=== PATIENT | female | born 1985 ===

== ENCOUNTER 2016-08-29 13:16 | Emergency (ER) | payer MEDICAID ==
[2016-08-29 13:16] VITALS: BMI 23.0
[2016-08-29 13:54] VITALS: BP 118/64; PULSE 94; RESP 18; TEMP 97.9; O2SAT 94
[2016-08-29] MEDS ORDERED: HYDROmorphone 1 mg Tab PO STA ×3 (14:35→17:45)
--- NOTE | 2016-08-29 14:40 | C.PDOC ---
History Of Present Illness 31 yr old female with PMHx of Sickle Cell, presents to the ER with complaints of whole body pain, typical with her sickle cell pain and headache for the past 3 days. Patient reports she fell and hit her head in June and since then she has been getting reoccurring headache, states it has happened "10 times already ". Patient reports the headache usually gets better with Advil and rest. Patient denies fever, chills, vision changes, chest pain, SOB, nausea, vomiting , weakness or numbness. Time Seen by Provider: 08/29/16 14:21 Chief Complaint (Nursing): Back Pain History Per: Patient History/Exam Limitations: no limitations Onset/Duration Of Symptoms: Days (3) Past Medical History Reviewed: Historical Data, Nursing Documentation, Vital Signs Vital Signs: Last Vital Signs Temp 97.9 F 08/29/16 13:52 Pulse 94 H 08/29/16 13:52 Resp 18 08/29/16 13:52 BP 118/64 08/29/16 13:52 Pulse Ox 94 L 08/29/16 18:20 - Medical History PMH: Anemia (sickle cell anemia), Bronchitis, Gall Bladder Disease, Pneumonia, Sickle Cell Disease Surgical History: Cholecystectomy (2007) - [facility] Procedures INFLUENZA VACCINATION (03/16/12) INJECT/INFUSE ELECTROLYT (09/07/13) INJECT/INFUSE NEC (01/25/14) INSERTION OF INFUSION DEV INTO SUP VENA CAVA, PERC APPROACH (04/15/16) NEBULIZER THERAPY (12/02/13) PACKED CELL TRANSFUSION (02/12/15) REMOVAL OF VAD FROM TRUNK SUBCU/FASCIA, OPEN APPROACH (04/15/16) TRANSFUSE NONAUT RED BLOOD CELLS IN PERIPH VEIN, PERC (04/15/16) VACCINATION NEC (08/22/13) Family History: States: No Known Family Hx - Social History Hx Tobacco Use: No Hx Alcohol Use: No Hx Substance Use: Yes (marijuana occasionally) - Immunization History Hx Tetanus Toxoid Vaccination: Yes Hx Influenza Vaccination: Yes (2015) Hx Pneumococcal Vaccination: Yes (2014) Review Of Systems Except As Marked, All Systems Reviewed And Found Negative. Constitutional: Positive for: Other ((+) Whole body pain ). Negative for: Fever , Chills Eyes: Negative for: Vision Change Cardiovascular: Negative for: Chest Pain Respiratory: Negative for: Shortness of Breath Gastrointestinal: Negative for: Nausea, Vomiting Neurological: Positive for: Headache. Negative for: Weakness, Numbness Physical Exam - Physical Exam Appears: Non-toxic, No Acute Distress Skin: Warm, Dry, No Rash Head: Atraumatic, Normacephalic Neck: Normal, Normal ROM, Supple Chest: Symmetrical, No Tenderness Cardiovascular: Rhythm Irregular, No Murmur Respiratory: Normal Breath Sounds, No Rales, No Rhonchi, No Stridor, No Wheezing Extremity: Normal ROM, No Swelling Neurological/Psych: Oriented x3, Normal Speech, Normal Motor ED Course And Treatment O2 Sat by Pulse Oximetry: 94 Progress Note: Pateint received all medications. Patient left without discharge papers. Medical Decision Making Medical Decision Makin the pt says she feels better and would like her last round of pain medication and then she would like to be discharged. Disposition - Disposition Disposition: HOME/ ROUTINE Disposition Time: 18:09 Condition: STABLE Additional Instructions: Please follow up with your doctor. Forms: General Discharge Instructions - Clinical Impression Clinical Impression: Sickle-cell disease with pain - Scribe Statement The provider has reviewed the documentation as recorded by the Rosa Willoughby Provider Attestation: All medical record entries made by the Rosa were at my direction and personally dictated by me. I have reviewed the chart and agree that the record accurately reflects my personal performance of the history, physical exam, medical decision making, and the department course for this patient. I have also personally directed, reviewed, and agree with the discharge instructions and disposition.
== END 2016-08-29 18:25 | disposition home or self-care (01) ==
LOC: C.ER 13:16
DX: R51 Headache (principal); D57.1 Sickle-cell disease without crisis

== ENCOUNTER 2016-09-01 08:34 | Emergency (ER) | payer MEDICAID ==
[2016-09-01 08:35] VITALS: BMI 23.0
[2016-09-01 08:40] VITALS: BP 118/82; PULSE 83; RESP 18; TEMP 97.4; O2SAT 98
--- NOTE | 2016-09-01 08:49 | C.PDOC ---
History Of Present Illness 31 yr old female presents to the ER with complaints of exacerbated chronic back pain. Patient reports the pain is unchanged from prior, was seen on 08/29 for pain exacerbation. Patient has multiple ER visits for various pain complaints. Patient denies fever, nausea, vomiting, abdominal pain, diarrhea, dysuira or hematuria. CO EXAC CHRONIC BACK PAIN. SX UNCH FROM PRIOR DENIES TRAUMA. SEEN 08/29 FOR PAIN EXAC. MULT RECENT ER VISITS FOR VARIOUS PAIN COMPLAINTS. EXAM NEG MDM EXAC CHRONIC PAIN, PROBABLE DRUG SEEKING BEHAVIOR. RECENT RX FILL OF OXY, RECENT NEG LABS. ADVISED CONT CURRENT PAIN MEDS, FU PAIN MGMT Time Seen by Provider: 09/01/16 08:45 Chief Complaint (Nursing): Back Pain History Per: Patient History/Exam Limitations: no limitations Onset/Duration Of Symptoms: Persistent Current Symptoms Are (Timing): Still Present Past Medical History Reviewed: Historical Data, Nursing Documentation, Vital Signs Vital Signs: Last Vital Signs Temp 97.4 F L 09/01/16 08:40 Pulse 83 09/01/16 08:40 Resp 18 09/01/16 08:40 BP 118/82 09/01/16 08:40 Pulse Ox 98 09/01/16 08:53 - Medical History PMH: Anemia (sickle cell anemia), Bronchitis, Gall Bladder Disease, Pneumonia, Sickle Cell Disease Surgical History: Cholecystectomy (2007) - [facility] Procedures INFLUENZA VACCINATION (03/16/12) INJECT/INFUSE ELECTROLYT (09/07/13) INJECT/INFUSE NEC (01/25/14) INSERTION OF INFUSION DEV INTO SUP VENA CAVA, PERC APPROACH (04/15/16) NEBULIZER THERAPY (12/02/13) PACKED CELL TRANSFUSION (02/12/15) REMOVAL OF VAD FROM TRUNK SUBCU/FASCIA, OPEN APPROACH (04/15/16) TRANSFUSE NONAUT RED BLOOD CELLS IN PERIPH VEIN, PERC (04/15/16) VACCINATION NEC (08/22/13) Family History: States: No Known Family Hx - Social History Hx Tobacco Use: No Hx Alcohol Use: No Hx Substance Use: Yes (marijuana occasionally) - Immunization History Hx Tetanus Toxoid Vaccination: Yes Hx Influenza Vaccination: Yes (2015) Hx Pneumococcal Vaccination: Yes (2014) Review Of Systems Except As Marked, All Systems Reviewed And Found Negative. Constitutional: Negative for: Fever Gastrointestinal: Negative for: Nausea, Vomiting, Abdominal Pain, Diarrhea Genitourinary: Negative for: Dysuria, Hematuria Musculoskeletal: Positive for: Back Pain (Chronic back pain ) Physical Exam - Physical Exam Appears: Non-toxic, No Acute Distress Skin: Warm, Dry, No Rash Head: Atraumatic, Normacephalic Eye(s): bilateral: Normal Inspection, PERRL, EOMI Oral Mucosa: Moist Chest: Symmetrical, No Tenderness Cardiovascular: Rhythm Regular, No Murmur Respiratory: Normal Breath Sounds, No Rales, No Rhonchi, No Wheezing Gastrointestinal/Abdominal: Normal Exam, Soft, No Tenderness, No Guarding, No Rebound Back: Normal Inspection, No CVA Tenderness Extremity: Normal ROM, No Swelling Neurological/Psych: Oriented x3, Normal Speech, Normal Motor ED Course And Treatment O2 Sat by Pulse Oximetry: 98 Progress - Re-Evaluation Re-evaluation Note: 09/01/16 08:48 [place] RX REVIEWED: 08/27/2016 08/27/2016 OXYCODONE HCL ER 40 MG TABLET 10.0 08/12/2016 HYDROMORPHONE 4 MG TABLET 20.0 06/27/2016 HYDROMORPHONE 4 MG TABLET 30.0 - Data Reviewed Data Reviewed: Old records Medical Decision Making Medical Decision Making: NOTE: EXAC CHRONIC PAIN, PROBABLE DRUG SEEKING BEHAVIOR. RECENT RX FILL OF OXY, RECENT NEG LABS. ADVISED CONT CURRENT PAIN MEDS, FU PAIN MGMT Disposition Counseled Patient/Family Regarding: Diagnosis, Need For Followup - Disposition Referrals: YOUR,PMD [Other] Disposition: HOME/ ROUTINE Disposition Time: 08:50 Condition: GOOD Instructions: Chronic Pain (ED) - Clinical Impression Clinical Impression: Chronic pain - Scribe Statement The provider has reviewed the documentation as recorded by the Rosa Willoughby Provider Attestation: All medical record entries made by the Rosa were at my direction and personally dictated by me. I have reviewed the chart and agree that the record accurately reflects my personal performance of the history, physical exam, medical decision making, and the department course for this patient. I have also personally directed, reviewed, and agree with the discharge instructions and disposition.
== END 2016-09-01 08:55 | disposition home or self-care (01) ==
LOC: C.ER 08:34
DX: G89.29 Other chronic pain (principal); M54.9 Dorsalgia, unspecified

== ENCOUNTER 2016-09-05 09:25 | Emergency (ER) | payer MEDICAID ==
[2016-09-05 09:26] VITALS: BMI 23.0
--- NOTE | 2016-09-05 10:52 | C.PDOC ---
History Of Present Illness 31-year-old female, PMHx includes Sickle Cell Disease, presents to the emergency department with multiple complaints. Patient states she has swelling and pain to her left eyelid for the past few days. Patient [place] [facility] [place], where she was given "drops" that have not helped. Secondary complaint is body aches that are consistent with her sickle cell symptoms; Patient has been seen in ED for this complaint multiple times in the past. Denies any other associated symptoms at this time. No other complaints. PMD Dr Raymond Time Seen by Provider: 09/05/16 09:40 Chief Complaint (Nursing): Eye Problem History Per: Patient History/Exam Limitations: no limitations Past Medical History Reviewed: Historical Data, Nursing Documentation, Vital Signs Vital Signs: Last Vital Signs Temp 98.2 F 09/05/16 12:03 Pulse 86 09/05/16 12:03 Resp 18 09/05/16 12:03 BP 118/72 09/05/16 12:03 Pulse Ox 97 09/05/16 12:03 - Medical History PMH: Anemia (sickle cell anemia), Bronchitis, Gall Bladder Disease, Pneumonia, Sickle Cell Disease Surgical History: Cholecystectomy (2007) - [facility] Procedures INFLUENZA VACCINATION (03/16/12) INJECT/INFUSE ELECTROLYT (09/07/13) INJECT/INFUSE NEC (01/25/14) INSERTION OF INFUSION DEV INTO SUP VENA CAVA, PERC APPROACH (04/15/16) NEBULIZER THERAPY (12/02/13) PACKED CELL TRANSFUSION (02/12/15) REMOVAL OF VAD FROM TRUNK SUBCU/FASCIA, OPEN APPROACH (04/15/16) TRANSFUSE NONAUT RED BLOOD CELLS IN PERIPH VEIN, PERC (04/15/16) VACCINATION NEC (08/22/13) Family History: States: Unknown Family Hx - Social History Hx Tobacco Use: No Hx Alcohol Use: No Hx Substance Use: Yes (marijuana occasionally) - Immunization History Hx Tetanus Toxoid Vaccination: Yes Hx Influenza Vaccination: Yes (2015) Hx Pneumococcal Vaccination: Yes (2014) Review Of Systems Except As Marked, All Systems Reviewed And Found Negative. Constitutional: Positive for: Malaise. Negative for: Fever, Chills Eyes: Positive for: Pain Cardiovascular: Negative for: Chest Pain Respiratory: Negative for: Cough, Shortness of Breath Gastrointestinal: Negative for: Nausea, Vomiting Musculoskeletal: Negative for: Back Pain Skin: Negative for: Rash Neurological: Negative for: Weakness, Numbness, Headache, Dizziness Psych: Negative for: Anxiety, Depression, Suicidal ideation Physical Exam - Physical Exam Appears: Non-toxic, No Acute Distress Skin: Warm, Dry, No Rash Head: Atraumatic, Normacephalic Eye(s): bilateral: Normal Inspection, PERRL, EOMI, left: Other (swelling/sty to left lateral upper lid. No erythema to eyelid. ) Nose: Normal Oral Mucosa: Moist Lips: Normal Appearing Neck: Normal ROM Cardiovascular: Rhythm Regular Respiratory: Normal Breath Sounds, No Accessory Muscle Use Extremity: Normal ROM Neurological/Psych: Oriented x3, Normal Speech ED Course And Treatment O2 Sat by Pulse Oximetry: 100 Medical Decision Making Medical Decision Makin the pt tells me she has taken ibuprofen before and is not allergic to this. 1249 the pt says she feels better and wishes to be discharged Disposition - Disposition Disposition: HOME/ ROUTINE Disposition Time: 12:49 Condition: IMPROVED - Clinical Impression Clinical Impression: Sickle cell pain crisis, Hordeolum externum - Scribe Statement The provider has reviewed the documentation as recorded by the Rosa Shearer All medical record entries made by the Zacheryibvalarie were at my direction and personally dictated by me. I have reviewed the chart and agree that the record accurately reflects my personal performance of the history, physical exam, medical decision making, and the department course for this patient. I have also personally directed, reviewed, and agree with the discharge instructions and disposition.
[2016-09-05 12:04] VITALS: PULSE 86; RESP 18; TEMP 98.2
[2016-09-05 12:50] VITALS: O2SAT 100
[2016-09-05 13:10] VITALS: BP 116/70
== END 2016-09-05 12:55 | disposition home or self-care (01) ==
LOC: C.ER 09:25
DX: D57.00 Hb-SS disease with crisis, unspecified (principal); H00.014 Hordeolum externum left upper eyelid

== ENCOUNTER 2016-09-07 11:59 | Emergency (ER) | payer MEDICAID ==
[2016-09-07 12:04] VITALS: O2SAT 100; BMI 21.5
--- NOTE | 2016-09-07 12:39 | C.PDOC ---
History Of Present Illness 31-year-old female, PMHx includes Sickle Cell Disease, presents to the emergency department with complaints of body aches. Patient states she has been experiencing one week duration of abdominal pain and body aches that are consistent with her sickle cell symptoms; Patient has been seen in ED for this complaint multiple times in the past. Notes an episode of non-bloody/non- bilious vomiting last night. PMD Dr Raymond Time Seen by Provider: 09/07/16 12:35 Chief Complaint (Nursing): Abdominal Pain History Per: Patient History/Exam Limitations: no limitations Onset/Duration Of Symptoms: Days Current Symptoms Are (Timing): Still Present Severity: Moderate Past Medical History Reviewed: Historical Data, Nursing Documentation, Vital Signs Vital Signs: Last Vital Signs Temp 98.2 F 09/07/16 12:03 Pulse 86 09/07/16 12:03 Resp 16 09/07/16 12:03 BP 123/80 09/07/16 12:03 Pulse Ox 100 09/07/16 12:48 - Medical History PMH: Anemia (sickle cell anemia), Bronchitis, Gall Bladder Disease, Pneumonia, Sickle Cell Disease Surgical History: Cholecystectomy (2007) - [facility] Procedures INFLUENZA VACCINATION (03/16/12) INJECT/INFUSE ELECTROLYT (09/07/13) INJECT/INFUSE NEC (01/25/14) INSERTION OF INFUSION DEV INTO SUP VENA CAVA, PERC APPROACH (04/15/16) NEBULIZER THERAPY (12/02/13) PACKED CELL TRANSFUSION (02/12/15) REMOVAL OF VAD FROM TRUNK SUBCU/FASCIA, OPEN APPROACH (04/15/16) TRANSFUSE NONAUT RED BLOOD CELLS IN PERIPH VEIN, PERC (04/15/16) VACCINATION NEC (08/22/13) Family History: States: Unknown Family Hx - Social History Hx Tobacco Use: No Hx Alcohol Use: No Hx Substance Use: Yes (marijuana occasionally) - Immunization History Hx Tetanus Toxoid Vaccination: Yes Hx Influenza Vaccination: Yes (2015) Hx Pneumococcal Vaccination: Yes (2014) Review Of Systems Except As Marked, All Systems Reviewed And Found Negative. Constitutional: Positive for: Malaise. Negative for: Fever, Chills Respiratory: Negative for: Cough, Shortness of Breath Gastrointestinal: Positive for: Vomiting, Abdominal Pain Skin: Negative for: Rash Neurological: Negative for: Weakness, Numbness, Headache, Dizziness Physical Exam - Physical Exam Appears: Non-toxic, No Acute Distress Skin: Warm, Dry, No Rash Head: Atraumatic, Normacephalic Eye(s): bilateral: Normal Inspection, PERRL Nose: Normal Oral Mucosa: Moist Lips: Normal Appearing Neck: Normal ROM Cardiovascular: Rhythm Regular Respiratory: Normal Breath Sounds, No Accessory Muscle Use Extremity: Normal ROM Neurological/Psych: Oriented x3, Normal Speech ED Course And Treatment O2 Sat by Pulse Oximetry: 100 Medical Decision Making Medical Decision Making: Prior Visits Notes and records from previous visits were reviewed. Patient seen in ED two days ago for same complaint. Pt was given PO Dilaudid 16mg, 8mg and Motrin 500mg PO Benadryl 50mg. Pt has been seen in ED multiple times for same complaint. 151: pt reassesed. taking po on phone in nad. Disposition - Disposition Disposition: HOME/ ROUTINE Disposition Time: 13:51 Condition: STABLE Additional Instructions: please follow up with your doctor. return to er with worsening symptoms or concerns Instructions: Sickle Cell Crisis (ED) - Clinical Impression Clinical Impression: Sickle cell crisis - Scribe Statement The provider has reviewed the documentation as recorded by the Scribvalarie Shearer All medical record entries made by the Scribe were at my direction and personally dictated by me. I have reviewed the chart and agree that the record accurately reflects my personal performance of the history, physical exam, medical decision making, and the department course for this patient. I have also personally directed, reviewed, and agree with the discharge instructions and disposition.
[2016-09-07] MEDS ORDERED: HYDROmorphone 1 mg Tab PO STA (13:02)
[2016-09-07 14:13] VITALS: BP 114/77; PULSE 68; RESP 18; TEMP 97.8
== END 2016-09-07 14:47 | disposition home or self-care (01) ==
LOC: C.ER 11:59
DX: D57.00 Hb-SS disease with crisis, unspecified (principal)

== ENCOUNTER 2016-09-13 08:29 | Emergency (ER) | payer MEDICAID ==
[2016-09-13 08:29] VITALS: BMI 21.5
--- NOTE | 2016-09-13 11:05 | C.PDOC ---
History Of Present Illness 31 yr old female with PMHx of Sickle Cell Disease, presents to the ER for generalized body aches. Patient states the pain is consistent with normal Sickle Cell Disease pain. Patient has been seen in ED for similar complaint multiple times in the past. Patient denies fever, chills, chest pain, SOB, nausea, vomiting, headache, weakness or numbness. Time Seen by Provider: 09/13/16 08:34 Chief Complaint (Nursing): Abdominal Pain History Per: Patient History/Exam Limitations: no limitations Onset/Duration Of Symptoms: Days Current Symptoms Are (Timing): Still Present Past Medical History Reviewed: Historical Data, Nursing Documentation, Vital Signs Vital Signs: Last Vital Signs Temp 98.5 F 09/13/16 08:36 Pulse 89 09/13/16 08:36 Resp 20 09/13/16 08:36 BP 120/78 09/13/16 08:36 Pulse Ox 95 09/13/16 11:11 - Medical History PMH: Anemia, Bronchitis, Gall Bladder Disease, Pneumonia, Sickle Cell Disease Surgical History: Cholecystectomy - [facility] Procedures INFLUENZA VACCINATION (03/16/12) INJECT/INFUSE ELECTROLYT (09/07/13) INJECT/INFUSE NEC (01/25/14) INSERTION OF INFUSION DEV INTO SUP VENA CAVA, PERC APPROACH (04/15/16) NEBULIZER THERAPY (12/02/13) PACKED CELL TRANSFUSION (02/12/15) REMOVAL OF VAD FROM TRUNK SUBCU/FASCIA, OPEN APPROACH (04/15/16) TRANSFUSE NONAUT RED BLOOD CELLS IN PERIPH VEIN, PERC (04/15/16) VACCINATION NEC (08/22/13) Family History: States: No Known Family Hx - Social History Hx Tobacco Use: No Hx Alcohol Use: No Hx Substance Use: Yes (marijuana occasionally) - Immunization History Hx Tetanus Toxoid Vaccination: Yes Hx Influenza Vaccination: Yes (2016) Hx Pneumococcal Vaccination: Yes (2015) Review Of Systems Except As Marked, All Systems Reviewed And Found Negative. Constitutional: Positive for: Other ((+) Generalized body aches.). Negative for : Fever, Chills Cardiovascular: Negative for: Chest Pain Respiratory: Negative for: Shortness of Breath Gastrointestinal: Negative for: Nausea, Vomiting Neurological: Negative for: Weakness, Numbness, Headache Physical Exam - Physical Exam Appears: Well, Non-toxic, No Acute Distress Skin: Normal Color, Warm, Dry, No Rash Head: Atraumatic, Normacephalic Eye(s): bilateral: Normal Inspection, PERRL, EOMI Throat: Normal, No Erythema, No Exudate Chest: Symmetrical, No Tenderness Cardiovascular: Rhythm Regular, No Murmur Respiratory: Normal Breath Sounds Gastrointestinal/Abdominal: Normal Exam, Soft, No Tenderness, No Guarding, No Rebound Extremity: Normal ROM, No Swelling Neurological/Psych: Oriented x3, Normal Speech Gait: Steady ED Course And Treatment O2 Sat by Pulse Oximetry: 95 Medical Decision Making Medical Decision Making: PLAN: * Benadryl PO * Dilaudid PO * Motrin PO * Reglan PO Disposition Counseled Patient/Family Regarding: Diagnosis, Need For Followup - Disposition Disposition: HOME/ ROUTINE Disposition Time: 11:17 Condition: FAIR Forms: General Discharge Instructions - Clinical Impression Clinical Impression: Sickle cell disease - Scribe Statement The provider has reviewed the documentation as recorded by the Rosa Willoughby Provider Attestation: All medical record entries made by the Zacheryibvalarie were at my direction and personally dictated by me. I have reviewed the chart and agree that the record accurately reflects my personal performance of the history, physical exam, medical decision making, and the department course for this patient. I have also personally directed, reviewed, and agree with the discharge instructions and disposition.
[2016-09-13 11:24] VITALS: BP 120/78; PULSE 89; RESP 20; TEMP 98.5; O2SAT 95
== END 2016-09-13 11:32 | disposition home or self-care (01) ==
LOC: C.ER 08:29
DX: D57.1 Sickle-cell disease without crisis (principal)

== ENCOUNTER 2016-09-19 08:09 | Emergency (ER) | payer MEDICAID, OTHER ==
[2016-09-19 08:09] VITALS: BMI 21.5
[2016-09-19 09:48] VITALS: BP 131/82; PULSE 82; RESP 18; TEMP 98; O2SAT 97
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
--- NOTE | 2016-09-19 10:58 | RAD ---
PROCEDURE: Pelvis right hip dated 09/19/2016. HISTORY: r/o fx COMPARISON: Comparison made with CT scan of the abdomen and pelvis and plain film radiographs of the abdomen and pelvis dated 03/02/2016 and 07/30/2016 respectively. TECHNIQUE: AP view of the pelvis and right hip and frogleg lateral view FINDINGS: Metallic clip seen overlying the left mid true pelvis likely related to prior abdominal surgery. Clinical correlation with surgical history recommended. No evidence of acute displaced fracture nor dislocation. Both femoral heads appear appropriately located within the respective acetabula. Joint spaces are relatively preserved. Note again made of a small elliptical shaped sclerotic density overlying the right iliac bone with a smaller rounded sclerotic lesion in the posterior aspect left acetabulum consistent with small bone islands or osteomas. IMPRESSION: Right hip no acute fracture seen. Followup studies such as CT scan could be performed if further evaluation is necessary see above discussion for additional findings and details.
--- NOTE | 2016-09-19 11:03 | RAD ---
PROCEDURE: Chest and left rib series dated 09/19/2016 HISTORY: r/o fx COMPARISON: Comparison made with chest radiographs 08/24/2016 TECHNIQUE: Frontal view of the chest and 2 views of the left ribs performed. FINDINGS: Heart size is borderline enlarged. Poor inspiration with low lung volumes, mild crowded bronchovascular markings and mild bibasilar atelectasis. No evidence of focal consolidation effusion or pneumothorax. The visualized left ribs appear intact so far as can be seen. Re- demonstrated are multiple metallic clips in the left upper quadrant and right parasagittal mid abdomen unchanged IMPRESSION: No acute fracture seen. No acute cardiopulmonary disease. Poor inspiration with low lung volumes, crowded bronchovascular markings and mild bibasilar atelectasis.
== END 2016-09-19 10:03 | disposition home or self-care (01) ==
LOC: C.ER 08:09
DX: S20.222A Contusion of left back wall of thorax, initial encounter (principal); S70.01XA Contusion of right hip, initial encounter; V43.12XA Car passenger injured in collision with other type car in nontraffic accident, initial encounter; Y92.410 Unspecified street and highway as the place of occurrence of the external cause

== ENCOUNTER 2016-09-25 08:27 | Observation (INO) | payer MEDICAID, OTHER ==
[2016-09-25 08:37] VITALS: BMI 23.6
--- NOTE | 2016-09-25 09:11 | C.PDOC ---
History Of Present Illness 31 y/o female pmhx sickle cell disease presents to the ED with complains of diffuse body pain x1 day. Pain is typical of usual sickle cell symptoms. Pt denies fever, cough, SOB, vomiting, diarrhea or any other complaints. Time Seen by Provider: 09/25/16 08:41 Chief Complaint (Nursing): Pain, Chronic History Per: Patient History/Exam Limitations: no limitations Onset/Duration Of Symptoms: Hrs Current Symptoms Are (Timing): Still Present Severity: Mild Recent travel outside of the [place]: No Past Medical History Reviewed: Historical Data, Nursing Documentation, Vital Signs Vital Signs: Last Vital Signs Temp 98.0 F 09/25/16 10:30 Pulse 94 H 09/25/16 12:34 Resp 14 09/25/16 12:34 BP 126/58 L 09/25/16 12:34 Pulse Ox 97 09/25/16 12:41 - Medical History PMH: Anemia, Bronchitis, Gall Bladder Disease, Pneumonia, Sickle Cell Disease Surgical History: Cholecystectomy - [facility] Procedures INFLUENZA VACCINATION (03/16/12) INJECT/INFUSE ELECTROLYT (09/07/13) INJECT/INFUSE NEC (01/25/14) INSERTION OF INFUSION DEV INTO SUP VENA CAVA, PERC APPROACH (04/15/16) NEBULIZER THERAPY (12/02/13) PACKED CELL TRANSFUSION (02/12/15) REMOVAL OF VAD FROM TRUNK SUBCU/FASCIA, OPEN APPROACH (04/15/16) TRANSFUSE NONAUT RED BLOOD CELLS IN PERIPH VEIN, PERC (04/15/16) VACCINATION NEC (08/22/13) Family History: States: Unknown Family Hx - Social History Hx Tobacco Use: No Hx Alcohol Use: No Hx Substance Use: Yes (marijuana occasionally) - Immunization History Hx Tetanus Toxoid Vaccination: Yes Hx Influenza Vaccination: Yes (2015) Hx Pneumococcal Vaccination: Yes (2014) Review Of Systems Except As Marked, All Systems Reviewed And Found Negative. Constitutional: Negative for: Fever Cardiovascular: Negative for: Chest Pain Respiratory: Negative for: Cough, Shortness of Breath Gastrointestinal: Negative for: Vomiting, Diarrhea Musculoskeletal: Positive for: Other (diffuse body pain) Physical Exam - Physical Exam Appears: Non-toxic, No Acute Distress Skin: Warm, Dry, No Rash Head: Atraumatic, Normacephalic Oral Mucosa: Dry Throat: Normal Neck: Normal ROM, Supple Chest: Symmetrical Cardiovascular: Rhythm Regular, No Murmur Respiratory: Normal Breath Sounds, No Rales, No Rhonchi, No Wheezing Gastrointestinal/Abdominal: Normal Exam, Soft, No Tenderness Extremity: Normal ROM Extremity: Bilateral: Atraumatic Neurological/Psych: Oriented x3, Normal Speech ED Course And Treatment - Laboratory Results Result Diagrams: 09/25/16 09:48 09/25/16 09:48 O2 Sat by Pulse Oximetry: 97 (on room air) Pulse Ox Interpretation: Normal Progress Note: Plan: labs, CXR, benadryl, dilaudid, zofran, UA ED OBSERVATION Date of observation admission: 09/25/16 Time of observation admission: 09:37 - Observation admission statement Patient is being placed in observation because:: To monitor patient's response to treatment and give IV hydration. - Goals of Observation Goals of observation are:: To give IVF, control patient's pain. - Progress Note Progress Note: 09/25/16 11:32 On re-evaluation, patient continues to complain of diffuse bodypain. On exam, patient is laying in bed in no acute distress. On exam, lungs still clear to auscultation, cardiac RRR, abdomen still soft with no tenderness. Labs reviewed , WBC 16, Hgb 8, CMP wnl, CXR NAD, UA (-). Given 2nd dose of dilaudid 2 mg IV, and benadryl 25 mg IV. IVF still infusing. VSS. 09/25/16 12:33 On second re-evaluation, patient's symptoms are improving. Denies any chest pain , SOB or abdominal pain. Exam is unchanged, patient is sitting up in bed comfortably in no acute distress. Retic count 11. Patient given 3rd dose of dilaudid 12 mg IV, 2nd bolus IVF ordered. 09/25/16 12:50 On re-evaluation, patient is feeling much improved with no pain at this time. Patient states that she feels comfortable going home. Advised to follow up with PMD in 1-2 days without fail. Return to the ER at any time for any new or worsening symptoms. Disposition - Disposition Referrals: Олег Alegria MD [Staff Provider] - Disposition: HOME/ ROUTINE Disposition Time: 12:50 Condition: IMPROVED Additional Instructions: Follow up with PMD or referral physician in 1-2 days without fail. Return to the ER at any time for any new or worsening symptoms. Instructions: Dehydration (ED), Sickle Cell Crisis (ED) Print Language: SYRIAN - Clinical Impression Clinical Impression: Sickle cell pain crisis, Dehydration - PA / PRECISION LATHE OPERATOR / Resident Statement MD/DO has reviewed & agrees with the documentation as recorded. - Scribe Statement The provider has reviewed the documentation as recorded by the Scribvalarie Kidd All medical record entries made by the Rosa were at my direction and personally dictated by me. I have reviewed the chart and agree that the record accurately reflects my personal performance of the history, physical exam, medical decision making, and the department course for this patient. I have also personally directed, reviewed, and agree with the discharge instructions and disposition.
[2016-09-25] MEDS ORDERED: Sodium Chloride 0.9% 1,000 ML IV ONE ×2 (09:35→12:15)
[2016-09-25] MEDS ORDERED: HYDROmorphone 1 mg/ml ISec IVP STA ×3 (09:37→12:15)
[2016-09-25] MEDS ORDERED: DiphenhydrAMINE 50 mg/ml Inj IVP STA ×2 (09:37→11:36)
[2016-09-25] MEDS ORDERED: DiphenhydrAMINE 50 mg/ml Inj ONE ×2 (09:49→11:38)
[2016-09-25] MEDS ORDERED: Sodium Chloride 0.9% 1,000 ML ONE ×2 (09:49→12:28)
[2016-09-25 09:55] LABS: BASO # 0.1 K/uL (0.0-0.2); BASO % 0.7 % (0.0-2.0); EOS # 0.5 K/uL (0.0-0.7); EOS % 2.9 % (0.0-4.0); HEMATOCRIT 26.4 % (34.0-47.0); LYMPH # 5.6 K/uL (1.0-4.3); LYMPH % 34.8 % (20.0-40.0); MEAN CORPUSCULAR HEMOGLOBIN 32.2 pg (27.0-31.0); MEAN CORPUSCULAR HGB CONC 32.2 g/dL (33.0-37.0); MONO # 1.5 K/uL (0.0-0.8); MONO % 9.1 % (0.0-10.0); NRBC % 1.7 % (0.0-2.0); RED CELL DISTRIBUTION WIDTH 23.1 % (11.5-14.5)
[2016-09-25 09:57] LABS: MEAN CELL VOLUME 99.8 fL (81.0-99.0)
[2016-09-25 10:00] LABS: RBC URINE < 1 /hpf (0-3); URINE BACTERIA RARE (<OCC); URINE BILIRUBIN NEGATIVE (NEGATIVE); URINE BLOOD NEGATIVE (NEGATIVE); URINE COLOR Yellow (YELLOW); URINE GLUCOSE (UA) NORMAL (Normal); URINE KETONE NEGATIVE (NEGATIVE); URINE LEUKOCYTE ESTERASE NEG Leu/uL (Negative); URINE PROTEIN NEGATIVE (NEGATIVE); WBC URINE 1 /hpf (0-5)
[2016-09-25 10:07] LABS: CHLORIDE 102 mmol/L (98-107); POTASSIUM 4.2 mmol/L (3.6-5.2); SODIUM 140 mmol/L (132-148)
[2016-09-25 10:09] LABS: BILIRUBIN,TOTAL 2.4 mg/dL (0.2-1.3); CARBON DIOXIDE 26 mmol/L (22-30); GFR AFRICAN-AMERICAN > 60
[2016-09-25 10:10] LABS: ALB/GLOB RATIO 1.3 (1.0-2.1); ALKALINE PHOSPHATASE 118 U/L (38-126); ALT/SGPT 107 U/L (9-52); AST/SGOT 85 U/L (14-36); BLOOD UREA NITROGEN 8 mg/dL (7-17); GLUCOSE,RANDOM 93 mg/dL (65-105); TOTAL PROTEIN 7.2 g/dL (6.3-8.3)
[2016-09-25 11:08] LABS: RETIC% 11.8 % (0.5-1.5)
--- NOTE | 2016-09-25 11:31 | RAD ---
PROCEDURE: CHEST RADIOGRAPH, 1 VIEW HISTORY: chest pain COMPARISON: 09/19/2016 FINDINGS: LUNGS: Clear. PLEURA: No pneumothorax or pleural fluid seen. CARDIOVASCULAR: Normal. OSSEOUS STRUCTURES: No significant abnormalities. VISUALIZED UPPER ABDOMEN: Normal. OTHER FINDINGS: None. IMPRESSION: No active disease.
[2016-09-25 12:35] VITALS: RESP 14
[2016-09-25 12:50] VITALS: BP 120/70; PULSE 87; TEMP 98.4; O2SAT 94
== END 2016-09-25 12:50 | disposition home or self-care (01) ==
LOC: C.ER 08:27 → C.9OBSV 09:37
PROVIDERS: ADMIT Emergency Medicine; ATTEND Emergency Medicine
DX: D57.00 Hb-SS disease with crisis, unspecified (principal); E86.0 Dehydration
CPT/HCPCS: 71010; 80053; 81001; 84703; 85025; 85044; 96360; 96374; G0378; J1170; J1200; J2405; J7040

== ENCOUNTER 2016-10-14 02:02 | Emergency (ER) | payer MEDICAID ==
[2016-10-14 02:03] VITALS: BMI 23.6
[2016-10-14] MEDS ORDERED: DiphenhydrAMINE 50 mg/ml Inj ONE (02:49)
[2016-10-14] MEDS ORDERED: DiphenhydrAMINE 50 mg/ml Inj IM STA (02:49)
--- NOTE | 2016-10-14 02:55 | C.PDOC ---
History Of Present Illness 31 y/o female with PMHx of sickle cell anemia presents to ED with complaint of body aches. Patient states symptoms "do not feel like sickle cell crisis". Patient notes she is in process of switching PMD's at the moment and has no pain medications at home. Denies fever, chills, abdominal pain, nausea, vomiting , or other associated symptoms. Patient with multiple prior ER visits with similar complaints. Time Seen by Provider: 10/14/16 02:32 Chief Complaint (Nursing): Pain, Chronic History Per: Patient History/Exam Limitations: no limitations Onset/Duration Of Symptoms: Days Current Symptoms Are (Timing): Still Present Recent travel outside of the [place]: No Past Medical History Reviewed: Historical Data, Nursing Documentation, Vital Signs Vital Signs: Last Vital Signs Temp 98 F 10/14/16 03:36 Pulse 83 10/14/16 03:36 Resp 20 10/14/16 03:36 BP 121/70 10/14/16 03:36 Pulse Ox 99 10/14/16 03:36 - Medical History PMH: Anemia, Bronchitis, Gall Bladder Disease, Pneumonia, Sickle Cell Disease Surgical History: Cholecystectomy - [facility] Procedures INFLUENZA VACCINATION (03/16/12) INJECT/INFUSE ELECTROLYT (09/07/13) INJECT/INFUSE NEC (01/25/14) INSERTION OF INFUSION DEV INTO SUP VENA CAVA, PERC APPROACH (04/15/16) NEBULIZER THERAPY (12/02/13) PACKED CELL TRANSFUSION (02/12/15) REMOVAL OF VAD FROM TRUNK SUBCU/FASCIA, OPEN APPROACH (04/15/16) TRANSFUSE NONAUT RED BLOOD CELLS IN PERIPH VEIN, PERC (04/15/16) VACCINATION NEC (08/22/13) Family History: States: Unknown Family Hx - Social History Hx Tobacco Use: No Hx Alcohol Use: No Hx Substance Use: Yes (marijuana occasionally) - Immunization History Hx Tetanus Toxoid Vaccination: Yes Hx Influenza Vaccination: Yes (2015) Hx Pneumococcal Vaccination: Yes (2014) Review Of Systems Except As Marked, All Systems Reviewed And Found Negative. Constitutional: Positive for: Malaise. Negative for: Fever, Chills Cardiovascular: Negative for: Chest Pain Respiratory: Negative for: Cough, Shortness of Breath Gastrointestinal: Negative for: Nausea, Vomiting, Abdominal Pain, Diarrhea Skin: Negative for: Rash Neurological: Negative for: Headache, Dizziness Physical Exam - Physical Exam Appears: Non-toxic, No Acute Distress Skin: Normal Color, Warm, Dry Head: Atraumatic, Normacephalic Eye(s): bilateral: Normal Inspection Oral Mucosa: Moist Chest: Symmetrical Cardiovascular: Rhythm Regular, No Murmur Respiratory: Normal Breath Sounds, No Rales, No Rhonchi, No Wheezing Gastrointestinal/Abdominal: Soft, No Tenderness Back: Normal Inspection Extremity: Normal ROM, Capillary Refill (< 2 sec. ) Neurological/Psych: Oriented x3, Normal Speech, Normal Cognition ED Course And Treatment O2 Sat by Pulse Oximetry: 98 (RA) Pulse Ox Interpretation: Normal Progress Note: Treated with Dilaudid 2mg IM and Benadryl IM. Patient declines bloodwork at this time, also requesting medication for heartburn in ED. Treated with Maalox and Pepcid PO. On reevaluation, patient feels better, observed watching videos on her phone and talking to ER staff. Advised follow up with PMD. Disposition Counseled Patient/Family Regarding: Diagnosis, Need For Followup - Disposition Referrals: Enzo Louis MD [Staff Provider] - Disposition: HOME/ ROUTINE Disposition Time: 02:53 Condition: STABLE Additional Instructions: Please follow up with PMD Return to ER if symptoms worsen Instructions: Chronic Pain (ED) - Clinical Impression Clinical Impression: Chronic pain, Sickle cell disease - PA / ELECTRONICS TECHNOLOGY DEPARTMENT CHAIR / Resident Statement MD/DO has reviewed & agrees with the documentation as recorded. - Scribe Statement The provider has reviewed the documentation as recorded by the Rosa Hamlin Provider Scribe Attestation: All medical record entries made by the Rosa were at my direction and personally dictated by me. I have reviewed the chart and agree that the record accurately reflects my personal performance of the history, physical exam, medical decision making, and the department course for this patient. I have also personally directed, reviewed, and agree with the discharge instructions and disposition.
[2016-10-14] MEDS ORDERED: Aluminum Hydroxide/Magnesium Hydroxide Susp (30 mL) PO STA (02:56)
[2016-10-14] MEDS ORDERED: Aluminum Hydroxide/Magnesium Hydroxide Susp (30 mL) ONE (03:00)
[2016-10-14 03:37] VITALS: BP 121/70; PULSE 83; RESP 20; TEMP 98
[2016-10-14 04:22] VITALS: O2SAT 98
== END 2016-10-14 03:37 | disposition home or self-care (01) ==
LOC: C.ER 02:02
DX: G89.29 Other chronic pain (principal); D57.1 Sickle-cell disease without crisis
CPT/HCPCS: 96372; 99285; J1170; J1200

== ENCOUNTER 2016-10-17 08:39 | Emergency (ER) | payer MEDICAID ==
[2016-10-17 08:42] VITALS: BMI 22.6
[2016-10-17 08:50] VITALS: BP 116/79; PULSE 90; RESP 18; TEMP 98.7
[2016-10-17 09:02] VITALS: O2SAT 99
--- NOTE | 2016-10-17 09:37 | C.PDOC ---
History Of Present Illness 31 y/o female presents to the ED with complains of chronic generalized body pains. Pt history of sickle cell disease. Denies fever, nausea, vomiting, diarrhea, chest pain, abdominal pain, cough, SOB, headache, neck pain or any other complaints. Pt with frequent visits to ED for same. Time Seen by Provider: 10/17/16 09:04 Chief Complaint (Nursing): Pain, Chronic History Per: Patient History/Exam Limitations: no limitations Onset/Duration Of Symptoms: Days Current Symptoms Are (Timing): Still Present Severity: Mild Recent travel outside of the [place]: No Past Medical History Reviewed: Historical Data, Nursing Documentation, Vital Signs Vital Signs: Last Vital Signs Temp 98.7 F 10/17/16 08:43 Pulse 90 10/17/16 08:43 Resp 18 10/17/16 08:59 BP 116/79 10/17/16 08:43 Pulse Ox 99 10/17/16 09:37 - Medical History PMH: Anemia, Bronchitis, Gall Bladder Disease, Pneumonia, Sickle Cell Disease Surgical History: Cholecystectomy - [facility] Procedures INFLUENZA VACCINATION (03/16/12) INJECT/INFUSE ELECTROLYT (09/07/13) INJECT/INFUSE NEC (01/25/14) INSERTION OF INFUSION DEV INTO SUP VENA CAVA, PERC APPROACH (04/15/16) NEBULIZER THERAPY (12/02/13) PACKED CELL TRANSFUSION (02/12/15) REMOVAL OF VAD FROM TRUNK SUBCU/FASCIA, OPEN APPROACH (04/15/16) TRANSFUSE NONAUT RED BLOOD CELLS IN PERIPH VEIN, PERC (04/15/16) VACCINATION NEC (08/22/13) Family History: States: Unknown Family Hx - Social History Hx Tobacco Use: No Hx Alcohol Use: No Hx Substance Use: Yes (marijuana occasionally) - Immunization History Hx Tetanus Toxoid Vaccination: Yes Hx Influenza Vaccination: Yes (2016) Hx Pneumococcal Vaccination: Yes (2014) Review Of Systems Except As Marked, All Systems Reviewed And Found Negative. Constitutional: Negative for: Fever, Chills Cardiovascular: Negative for: Chest Pain Respiratory: Negative for: Cough, Shortness of Breath Gastrointestinal: Negative for: Nausea, Vomiting, Abdominal Pain, Diarrhea Musculoskeletal: Positive for: Other (generalized body pains). Negative for: Neck Pain Neurological: Negative for: Headache Physical Exam - Physical Exam Appears: Non-toxic, No Acute Distress Skin: Warm, Dry, No Rash Head: Atraumatic, Normacephalic Nose: Normal Neck: Normal, Normal ROM, Supple Cardiovascular: Rhythm Regular, No Murmur Respiratory: Normal Breath Sounds, No Rales, No Rhonchi, No Wheezing Gastrointestinal/Abdominal: Normal Exam, Soft, No Tenderness Back: Normal Inspection, No Vertebral Tenderness, No Paraspinal Tenderness Extremity: Normal ROM, No Tenderness Extremity: Bilateral: Atraumatic Neurological/Psych: Oriented x3, Normal Speech, Normal Cognition Gait: Steady ED Course And Treatment O2 Sat by Pulse Oximetry: 99 (room air) Pulse Ox Interpretation: Normal Medical Decision Making Medical Decision Making: Discussed case with Dr Tejal Louis and Dr alva regarding patient's frequent use of narcotics for pain. Agrees to have patient follow up with pain management, will not give narcotics in ED. Pt aware of plan, to follow up outpatient. Disposition Discussed With Dr.: Enzo Louis Doctor Will See Patient In The: Office Counseled Patient/Family Regarding: Diagnosis, Need For Followup - Disposition Disposition: HOME/ ROUTINE Disposition Time: 09:36 Condition: STABLE Additional Instructions: Please follow up with a pain management doctor. Instructions: Chronic Pain (DC) Forms: General Discharge Instructions - POA Present On Arrival: None - Clinical Impression Clinical Impression: Chronic pain - Scribe Statement The provider has reviewed the documentation as recorded by the Rosa estes Provider Attestation: All medical record entries made by the Rosa were at my direction and personally dictated by me. I have reviewed the chart and agree that the record accurately reflects my personal performance of the history, physical exam, medical decision making, and the department course for this patient. I have also personally directed, reviewed, and agree with the discharge instructions and disposition.
== END 2016-10-17 09:57 | disposition home or self-care (01) ==
LOC: C.ER 08:39
DX: G89.29 Other chronic pain (principal); D57.1 Sickle-cell disease without crisis

== ENCOUNTER 2016-10-20 10:00 | Emergency (ER) | payer MEDICAID ==
[2016-10-20 10:00] VITALS: BMI 22.6
[2016-10-20 10:25] VITALS: TEMP 98.2
--- NOTE | 2016-10-20 10:30 | C.PDOC ---
History Of Present Illness Patient is a 31 year old female well known to the ER with a PMHx of sickle cell anemia, who presents to the ER with a complaint of generalized pain, headache, and nausea. Patient states she recently changed her PMD from Dr. Raymond to Dr. Ariel Louis, however, she is waiting for her insurance to verify the change and cannot be seen until next week. Denies abdominal pain, chest pain, SOB, or fever. Time Seen by Provider: 10/20/16 10:29 Chief Complaint (Nursing): Pain, Chronic History Per: Patient History/Exam Limitations: no limitations Onset/Duration Of Symptoms: Hrs Current Symptoms Are (Timing): Still Present Reports Recently: Seen In ED Recent travel outside of the [place]: No Past Medical History Reviewed: Historical Data, Nursing Documentation, Vital Signs Vital Signs: Last Vital Signs Temp 98.2 F 10/20/16 13:43 Pulse 61 10/20/16 13:43 Resp 15 10/20/16 13:43 BP 106/67 10/20/16 13:43 Pulse Ox 100 10/20/16 13:52 - Medical History PMH: Anemia, Bronchitis, Gall Bladder Disease, Pneumonia, Sickle Cell Disease Surgical History: Cholecystectomy - [facility] Procedures INFLUENZA VACCINATION (03/16/12) INJECT/INFUSE ELECTROLYT (09/07/13) INJECT/INFUSE NEC (01/25/14) INSERTION OF INFUSION DEV INTO SUP VENA CAVA, PERC APPROACH (04/15/16) NEBULIZER THERAPY (12/02/13) PACKED CELL TRANSFUSION (02/12/15) REMOVAL OF VAD FROM TRUNK SUBCU/FASCIA, OPEN APPROACH (04/15/16) TRANSFUSE NONAUT RED BLOOD CELLS IN PERIPH VEIN, PERC (04/15/16) VACCINATION NEC (08/22/13) Family History: States: Unknown Family Hx - Social History Hx Tobacco Use: No Hx Alcohol Use: No Hx Substance Use: Yes (marijuana occasionally) - Immunization History Hx Tetanus Toxoid Vaccination: Yes Hx Influenza Vaccination: Yes (2015) Hx Pneumococcal Vaccination: Yes (2014) Review Of Systems Constitutional: Negative for: Fever Cardiovascular: Negative for: Chest Pain Respiratory: Negative for: Shortness of Breath Gastrointestinal: Positive for: Nausea. Negative for: Abdominal Pain Musculoskeletal: Positive for: Other (Generalized pain) Neurological: Positive for: Headache Physical Exam - Physical Exam Appears: Non-toxic, Other (Nauseous, vomiting) Skin: Normal Color, Warm, Dry Head: Atraumatic, Normacephalic Eye(s): bilateral: Normal Inspection, PERRL, EOMI Oral Mucosa: Moist Chest: Symmetrical, No Tenderness Cardiovascular: Rhythm Regular, No Murmur Respiratory: Normal Breath Sounds, No Rales, No Rhonchi, No Wheezing Gastrointestinal/Abdominal: Soft, No Tenderness Neurological/Psych: Oriented x3, Normal Speech, Normal Cognition ED Course And Treatment O2 Sat by Pulse Oximetry: 100 (Room air) Pulse Ox Interpretation: Normal Progress Note: PO protocol will be used, patient will be administered dilaudid, bendryl, reglan, and will be hydrated orally. On re-evaluation patient feels better and is stable to be d/c home with PMD follow up. Disposition - Disposition Referrals: Enzo Louis MD [Staff Provider] - Disposition: HOME/ ROUTINE Disposition Time: 13:50 Condition: STABLE Additional Instructions: Follow up with your PMD within 1-2 days. return to ED if feel worse. Instructions: Sickle Cell Crisis (ED) - Clinical Impression Clinical Impression: Sickle cell crisis - Scribe Statement The provider has reviewed the documentation as recorded by the Scribe Elan Bills All medical record entries made by the Scribe were at my direction and personally dictated by me. I have reviewed the chart and agree that the record accurately reflects my personal performance of the history, physical exam, medical decision making, and the department course for this patient. I have also personally directed, reviewed, and agree with the discharge instructions and disposition.
[2016-10-20 13:43] VITALS: BP 106/67; PULSE 61; RESP 15
[2016-10-20 13:52] VITALS: O2SAT 100
== END 2016-10-20 14:08 | disposition home or self-care (01) ==
LOC: C.ER 10:00
DX: D57.00 Hb-SS disease with crisis, unspecified (principal)

== ENCOUNTER 2016-10-24 12:29 | Inpatient (IN) | payer MEDICAID ==
[2016-10-24 12:30] VITALS: BMI 22.6
[2016-10-24] MEDS ORDERED: Sodium Chloride 0.9% 1,000 ML IV ONE (14:14)
--- NOTE | 2016-10-24 14:24 | C.PDOC ---
History Of Present Illness Patient is a 31 year old female well known to the ER with a PMHx of sickle cell anemia, who presents with complaints of generalized pain, headache, and nausea for 7 days. Patient states she has not taken any medications for symptoms. Denies cough, chest pain, SOB, or fever. Time Seen by Provider: 10/24/16 13:31 Chief Complaint (Nursing): Medical Clearance History Per: Patient History/Exam Limitations: no limitations Onset/Duration Of Symptoms: Days, Persistent Current Symptoms Are (Timing): Still Present Reports Recently: Seen In ED Recent travel outside of the [place]: No Past Medical History Reviewed: Historical Data, Nursing Documentation, Vital Signs Vital Signs: Last Vital Signs Temp 98.0 F 10/24/16 19:12 Pulse 71 10/24/16 19:12 Resp 18 10/24/16 19:12 BP 116/55 L 10/24/16 19:12 Pulse Ox 96 10/24/16 19:54 - Medical History PMH: Anemia, Bronchitis, Gall Bladder Disease, Pneumonia, Sickle Cell Disease Surgical History: Cholecystectomy - [facility] Procedures INFLUENZA VACCINATION (03/16/12) INJECT/INFUSE ELECTROLYT (09/07/13) INJECT/INFUSE NEC (01/25/14) INSERTION OF INFUSION DEV INTO SUP VENA CAVA, PERC APPROACH (04/15/16) NEBULIZER THERAPY (12/02/13) PACKED CELL TRANSFUSION (02/12/15) REMOVAL OF VAD FROM TRUNK SUBCU/FASCIA, OPEN APPROACH (04/15/16) TRANSFUSE NONAUT RED BLOOD CELLS IN PERIPH VEIN, PERC (04/15/16) VACCINATION NEC (08/22/13) Family History: States: Unknown Family Hx - Social History Hx Tobacco Use: No Hx Alcohol Use: No Hx Substance Use: Yes (marijuana occasionally) - Immunization History Hx Tetanus Toxoid Vaccination: Yes Hx Influenza Vaccination: Yes (2015) Hx Pneumococcal Vaccination: Yes (2014) Review Of Systems Except As Marked, All Systems Reviewed And Found Negative. Constitutional: Negative for: Fever, Chills Cardiovascular: Negative for: Chest Pain, Palpitations Respiratory: Negative for: Cough, Shortness of Breath, Wheezing Gastrointestinal: Positive for: Abdominal Pain. Negative for: Nausea, Vomiting Skin: Negative for: Rash Physical Exam - Physical Exam Appears: Non-toxic, No Acute Distress Skin: Normal Color, Warm, Dry Head: Atraumatic, Normacephalic Oral Mucosa: Moist Chest: Symmetrical Cardiovascular: Rhythm Regular Respiratory: Normal Breath Sounds, No Rales, No Rhonchi, No Wheezing Gastrointestinal/Abdominal: Soft, Tenderness (mild, epigastric), No Distention, No Guarding, No Rebound Back: Normal Inspection Extremity: Normal ROM, Capillary Refill (< 2 sec. ) Neurological/Psych: Oriented x3, Normal Speech, Normal Cognition ED Course And Treatment - Laboratory Results Result Diagrams: 10/24/16 15:10 10/24/16 15:10 O2 Sat by Pulse Oximetry: 96 (RA) Pulse Ox Interpretation: Normal Medical Decision Making Medical Decision Making: Plan: * Labs * IVFs * Reassess Progress: 550 pm Pt asking for more pain medicine; will order and re-eval in one hours after receiving meds. 735 pm pt still waiting for dilaudid. out of it in ed, and need pixis to be restocked. pt refuses morphine instead. pt sts she needs to be admitted for pain control,. fears pain will come back if she goes home. Disposition Discussed With : Enzo Louis Doctor Will See Patient In The: Hospital - Disposition Disposition: HOSPITALIZED Disposition Time: 19:56 Condition: STABLE - Clinical Impression Clinical Impression: Sickle cell crisis - PA / EDUCATION RN / Resident Statement MD/DO has reviewed & agrees with the documentation as recorded. - Scribe Statement The provider has reviewed the documentation as recorded by the Scribe Eric Hamlin All medical record entries made by the Zacheryibvalarie were at my direction and personally dictated by me. I have reviewed the chart and agree that the record accurately reflects my personal performance of the history, physical exam, medical decision making, and the department course for this patient. I have also personally directed, reviewed, and agree with the discharge instructions and disposition.
[2016-10-24 15:17] LABS: BASO # 0.1 K/uL (0.0-0.2); BASO % 0.7 % (0.0-2.0); EOS # 0.1 K/uL (0.0-0.7); EOS % 0.6 % (0.0-4.0); HEMATOCRIT 26.6 % (34.0-47.0); LYMPH # 4.4 K/uL (1.0-4.3); LYMPH % 31.9 % (20.0-40.0); MEAN CELL VOLUME 96.3 fL (81.0-99.0); MEAN CORPUSCULAR HEMOGLOBIN 32.2 pg (27.0-31.0); MEAN CORPUSCULAR HGB CONC 33.4 g/dL (33.0-37.0); MONO # 0.8 K/uL (0.0-0.8); NRBC % 0.7 % (0.0-2.0); RED CELL DISTRIBUTION WIDTH 22.4 % (11.5-14.5); WHITE BLOOD COUNT 13.7 K/uL (4.8-10.8)
[2016-10-24 15:35] LABS: RBC URINE < 1 /hpf (0-3); URINE BACTERIA MOD (<OCC); URINE BILIRUBIN NEGATIVE (NEGATIVE); URINE BLOOD NEGATIVE (NEGATIVE); URINE COLOR Yellow (YELLOW); URINE GLUCOSE (UA) NORMAL (Normal); URINE KETONE NEGATIVE (NEGATIVE); URINE LEUKOCYTE ESTERASE NEG Leu/uL (Negative); URINE PROTEIN NEGATIVE (NEGATIVE); WBC URINE 1 /hpf (0-5)
[2016-10-24] MEDS ORDERED: DiphenhydrAMINE 12.5 mg/5 ml LIQ UD (5 ml) PO STA (15:41)
[2016-10-24 15:47] LABS: CHLORIDE 99 mmol/L (98-107); POTASSIUM 4.6 mmol/L (3.6-5.2); SODIUM 136 mmol/L (132-148)
[2016-10-24 15:49] LABS: ALB/GLOB RATIO 1.5 (1.0-2.1); ALKALINE PHOSPHATASE 123 U/L (38-126); AST/SGOT 106 U/L (14-36); BILIRUBIN,TOTAL 2.9 mg/dL (0.2-1.3); BLOOD UREA NITROGEN 10 mg/dL (7-17); CARBON DIOXIDE 28 mmol/L (22-30); GFR AFRICAN-AMERICAN > 60; TOTAL PROTEIN 7.5 g/dL (6.3-8.3)
[2016-10-24 15:50] LABS: ALT/SGPT 156 U/L (9-52); GLUCOSE,RANDOM 83 mg/dL (65-105)
--- NOTE | 2016-10-24 21:58 | CP.PCM.HP ---
History of Present Illness - History of Present Illness History of Present Illness: 31-year-old female patient with past medical history of bronchitis, gallbladder disease, pneumonia, sickle cell disease presented to the ER with complaint of generalized pain, headache and nausea for 7 days. Patient states she has not taken any medication for symptoms. Denies cough, chest pain, shortness of breath, fever. Present on Admission - Present on Admission Any Indicators Present on Admission: No Past Patient History - Infectious Disease Hx of Infectious Diseases: None - Tetanus Immunizations Tetanus Immunization: Up to Date - Past Medical History & Family History Past Medical History?: Yes - Past Social History Smoking Status: Former Smoker - PULMONARY Hx Bronchitis: Yes Hx Pneumonia: Yes - HEENT Hx HEENT Problems: No - HEMATOLOGICAL/ONCOLOGICAL Hx Anemia: Yes Hx Sickle Cell Disease: Yes - INTEGUMENTARY Hx Dermatological Problems: No - GASTROINTESTINAL Hx Gall Bladder Disease: Yes - PSYCHIATRIC Hx Substance Use: Yes (marijuana occasionally) - SURGICAL HISTORY Hx Cholecystectomy: Yes - ANESTHESIA Hx Anesthesia: Yes Hx Anesthesia Reactions: No Hx Malignant Hyperthermia: No Meds Allergies/Adverse Reactions: Allergies Allergy/AdvReac Type Severity Reaction Status Date / Time FISH Allergy Severe RASH Verified 01/06/17 08:31 oxycodone Allergy Severe RASH Verified 01/06/17 08:31 tramadol Allergy Severe RASH Verified 01/06/17 08:31 ketorolac Allergy Intermediate RASH Verified 01/06/17 08:31 Results - Vital Signs Recent Vital Signs: Last Vital Signs Temp 98.1 F 10/24/16 21:10 Pulse 73 10/24/16 21:10 Resp 18 10/24/16 21:10 BP 96/61 L 10/24/16 21:10 Pulse Ox 98 10/24/16 21:10 - Labs Result Diagrams: 10/31/16 12:00 10/31/16 12:00 Assessment & Plan (1) Abdominal pain Status: Acute (2) Abdominal pain Status: Acute (3) Abnormal LFTs Status: Acute (4) Anemia Status: Acute (5) Anemia Status: Acute (6) Cannabis use disorder, mild, abuse Status: Acute (7) Chronic abdominal pain Status: Acute (8) Chronic pain Status: Acute (9) Chronic pain disorder Status: Acute (10) Contusion of back Status: Acute (11) Contusion of hip, right Status: Acute (12) Dehydration Status: Acute (13) Drug-seeking behavior Status: Acute (14) Dysfunctional uterine bleeding Status: Acute (15) Elevated LFTs Status: Acute (16) Generalized pain Status: Acute (17) Headache Status: Acute (18) Hordeolum externum (stye) Status: Acute (19) Iron overload due to repeated red blood cell transfusions Status: Acute (20) Leukocytosis Status: Acute (21) Opioid abuse Status: Acute (22) Pain Status: Acute (23) Pain Status: Acute (24) Pain disorder Status: Acute (25) Pneumonia Status: Acute (26) Prophylactic measure Status: Acute (27) Sickle cell anemia Status: Acute (28) Sickle cell crisis Status: Acute (29) Sickle cell crisis Status: Acute (30) Sickle cell disease Status: Acute (31) Sickle cell pain crisis Status: Acute (32) Sickle cell trait Status: Acute (33) Sickle-cell disease with pain Status: Acute (34) 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
[2016-10-24] MEDS: DiphenhydrAMINE 50 mg/ml Inj IVP PRN (22:38)
[2016-10-25] MEDS: DiphenhydrAMINE 50 mg/ml Inj IVP PRN ×9 (01:54→23:11)
[2016-10-25] MEDS: Sodium Chloride 0.9% 1,000 ML IV SCH ×2 (09:41→19:48)
[2016-10-25] MEDS: Enoxaparin 40 mg Syringe SC SCH (10:32)
[2016-10-25] MEDS: Pantoprazole 40 mg EC Tab PO SCH (10:32)
--- NOTE | 2016-10-25 14:37 | CP.PCM.PN ---
Subjective - Date & Time of Evaluation Date of Evaluation: 10/25/16 Time of Evaluation: 09:40 - Subjective Subjective: clinically same Objective - Vital Signs/Intake and Output Vital Signs (last 24 hours): Temp Pulse Resp BP Pulse Ox 98.2 F 65 20 102/60 95 10/25/16 07:59 10/25/16 07:59 10/25/16 07:59 10/25/16 07:59 10/25/16 07:59 - Medications Medications: Current Medications Diphenhydramine HCl (Benadryl) 25 mg IVP Q3 PRN PRN Reason: Itching / Pruritus Last Admin: 10/25/16 14:20 Dose: 25 mg Enoxaparin Sodium (Lovenox) 40 mg SC DAILY [facility] Last Admin: 10/25/16 10:32 Dose: 40 mg Folic Acid (Folic Acid) 1 mg PO DAILY [facility] Last Admin: 10/25/16 10:32 Dose: 1 mg Hydromorphone HCl (Dilaudid) 2 mg IVP Q3 PRN PRN Reason: Pain, severe (8-10) Last Admin: 10/25/16 14:20 Dose: 2 mg Sodium Chloride (Sodium Chloride 0.9%) 1,000 mls @ 100 mls/hr IV .Q10H [facility] Last Admin: 10/25/16 09:41 Dose: 100 mls/hr Pantoprazole Sodium (Protonix Ec Tab) 40 mg PO DAILY [facility] Last Admin: 10/25/16 10:32 Dose: 40 mg - Constitutional Appears: Well - Head Exam Head Exam: ATRAUMATIC, NORMAL INSPECTION, NORMOCEPHALIC - Eye Exam Eye Exam: EOMI, Normal appearance, PERRL Pupil Exam: NORMAL ACCOMODATION, PERRL - ENT Exam ENT Exam: Mucous Membranes Moist, Normal Exam - Neck Exam Neck Exam: Full ROM, Normal Inspection. absent: Lymphadenopathy - Respiratory Exam Respiratory Exam: Decreased Breath Sounds - Cardiovascular Exam Cardiovascular Exam: REGULAR RHYTHM, +S1, +S2 - GI/Abdominal Exam GI & Abdominal Exam: Soft, Diminished Bowel Sounds - Rectal Exam Rectal Exam: Deferred Assessment and Plan (1) Abdominal pain Status: Acute (2) Abdominal pain Status: Acute (3) Abnormal LFTs Status: Acute (4) Anemia Status: Acute (5) Cannabis use disorder, mild, abuse Status: Acute (6) Chronic abdominal pain Status: Acute (7) Chronic pain Status: Acute (8) Chronic pain disorder Status: Acute (9) Contusion of back Status: Acute (10) Contusion of hip, right Status: Acute (11) Dehydration Status: Acute (12) Drug-seeking behavior Status: Acute (13) Dysfunctional uterine bleeding Status: Acute (14) Elevated LFTs Status: Acute (15) Generalized pain Status: Acute (16) Headache Status: Acute (17) Hordeolum externum (stye) Status: Acute (18) Iron overload due to repeated red blood cell transfusions Status: Acute (19) Leukocytosis Status: Acute (20) Opioid abuse Status: Acute (21) Pain Status: Acute (22) Pain Status: Acute (23) Pain disorder Status: Acute (24) Pneumonia Status: Acute (25) Prophylactic measure Status: Acute (26) Sickle cell anemia Status: Acute (27) Sickle cell crisis Status: Acute (28) Sickle cell crisis Status: Acute (29) Sickle cell disease Status: Acute (30) Sickle cell pain crisis Status: Acute (31) Sickle cell trait Status: Acute (32) Sickle-cell disease with pain Status: Acute (33) 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
[2016-10-25 20:51] LABS: BASO # 0.1 K/uL (0.0-0.2); BASO % 0.7 % (0.0-2.0); EOS # 0.5 K/uL (0.0-0.7); HEMATOCRIT 24.7 % (34.0-47.0); LYMPH # 8.3 K/uL (1.0-4.3); LYMPH % 50.3 % (20.0-40.0); MEAN CELL VOLUME 94.4 fL (81.0-99.0); MEAN CORPUSCULAR HEMOGLOBIN 32.4 pg (27.0-31.0); MEAN CORPUSCULAR HGB CONC 34.3 g/dL (33.0-37.0); MEAN PLATELET VOLUME 8.2 fL (7.2-11.7); MONO # 1.5 K/uL (0.0-0.8); MONO % 8.8 % (0.0-10.0); NRBC % 0.4 % (0.0-2.0); PLATELET COUNT 288 K/uL (130-400); RETIC% 8.8 % (0.5-1.5); WHITE BLOOD COUNT 16.5 K/uL (4.8-10.8)
[2016-10-25 21:37] LABS: EOSINOPHIL 1 % (0-4); NEUTROPHIL 45 % (50-75); REACTIVE LYMPHOCYTES 37 % (0-0); TOTAL CELLS COUNTED 100
[2016-10-26] MEDS: DiphenhydrAMINE 50 mg/ml Inj IVP PRN ×8 (02:18→23:08)
[2016-10-26] MEDS: Sodium Chloride 0.9% 1,000 ML IV SCH ×2 (05:13→14:14)
[2016-10-26] MEDS: Pantoprazole 40 mg EC Tab PO SCH (09:36)
[2016-10-26] MEDS: Enoxaparin 40 mg Syringe SC SCH (09:37)
--- NOTE | 2016-10-26 16:22 | CP.PCM.PN ---
Subjective - Date & Time of Evaluation Date of Evaluation: 10/26/16 Time of Evaluation: 11:15 - Subjective Subjective: clinically same Objective - Vital Signs/Intake and Output Vital Signs (last 24 hours): Temp Pulse Resp BP Pulse Ox 97.4 F L 75 20 90/63 L 95 10/26/16 08:00 10/26/16 08:00 10/26/16 08:00 10/26/16 08:00 10/26/16 08:00 Intake and Output: 10/26/16 10/26/16 06:59 18:59 Intake Total 2230 Balance 2230 - Medications Medications: Current Medications Diphenhydramine HCl (Benadryl) 25 mg IVP Q3 PRN PRN Reason: Itching / Pruritus Last Admin: 10/26/16 14:11 Dose: 25 mg Enoxaparin Sodium (Lovenox) 40 mg SC DAILY [facility] Last Admin: 10/26/16 09:37 Dose: Not Given Folic Acid (Folic Acid) 1 mg PO DAILY [facility] Last Admin: 10/26/16 09:36 Dose: 1 mg Hydromorphone HCl (Dilaudid) 2 mg IVP Q3 PRN PRN Reason: Pain, severe (8-10) Last Admin: 10/26/16 14:11 Dose: 2 mg Sodium Chloride (Sodium Chloride 0.9%) 1,000 mls @ 100 mls/hr IV .Q10H [facility] Last Admin: 10/26/16 14:14 Dose: 100 mls/hr Pantoprazole Sodium (Protonix Ec Tab) 40 mg PO DAILY [facility] Last Admin: 10/26/16 09:36 Dose: 40 mg - Labs Labs: 10/25/16 20:45 Assessment and Plan - Assessment and Plan (Free Text) Plan: f/u heme/onc IV NS Dilaudid Lovenox benadryl protonix
[2016-10-27] MEDS: DiphenhydrAMINE 50 mg/ml Inj IVP PRN ×7 (02:08→21:07)
[2016-10-27] MEDS: Sodium Chloride 0.9% 1,000 ML IV SCH ×6 (02:13→21:13)
[2016-10-27] MEDS: Pantoprazole 40 mg EC Tab PO SCH (10:21)
[2016-10-27] MEDS: Enoxaparin 40 mg Syringe SC SCH (10:21)
[2016-10-27 12:10] LABS: BASO # 0.1 K/uL (0.0-0.2); BASO % 0.6 % (0.0-2.0); EOS # 0.4 K/uL (0.0-0.7); EOS % 2.2 % (0.0-4.0); HEMATOCRIT 25.3 % (34.0-47.0); LYMPH # 6.7 K/uL (1.0-4.3); MEAN CELL VOLUME 95.5 fL (81.0-99.0); MEAN CORPUSCULAR HEMOGLOBIN 31.9 pg (27.0-31.0); MEAN CORPUSCULAR HGB CONC 33.4 g/dL (33.0-37.0); MEAN PLATELET VOLUME 8.8 fL (7.2-11.7); MONO # 1.1 K/uL (0.0-0.8); MONO % 6.8 % (0.0-10.0); NRBC % 0.4 % (0.0-2.0); RED CELL DISTRIBUTION WIDTH 17.8 % (11.5-14.5); RETIC% 7.7 % (0.5-1.5); WHITE BLOOD COUNT 16.8 K/uL (4.8-10.8)
[2016-10-27 12:15] LABS: CHLORIDE 99 mmol/L (98-107)
[2016-10-27 12:16] LABS: POTASSIUM 4.1 mmol/L (3.6-5.2); SODIUM 136 mmol/L (132-148)
[2016-10-27 12:18] LABS: GFR AFRICAN-AMERICAN > 60
[2016-10-27 12:19] LABS: BLOOD UREA NITROGEN 10 mg/dL (7-17); CALCIUM 8.5 mg/dl (8.6-10.4); CARBON DIOXIDE 28 mmol/L (22-30); GLUCOSE,RANDOM 74 mg/dL (65-105)
--- NOTE | 2016-10-27 17:54 | CP.PCM.PN ---
Subjective - Date & Time of Evaluation Date of Evaluation: 10/27/16 Time of Evaluation: 10:00 - Subjective Subjective: clinically same Objective - Vital Signs/Intake and Output Vital Signs (last 24 hours): Temp Pulse Resp BP Pulse Ox 98.2 F 66 20 123/76 95 10/27/16 15:00 10/27/16 15:00 10/27/16 15:00 10/27/16 15:00 10/27/16 15:00 Intake and Output: 10/27/16 10/27/16 06:59 18:59 Intake Total 2310 1250 Balance 2310 1250 - Medications Medications: Current Medications Diphenhydramine HCl (Benadryl) 25 mg IVP Q3 PRN PRN Reason: Itching / Pruritus Last Admin: 10/27/16 17:51 Dose: 25 mg Enoxaparin Sodium (Lovenox) 40 mg SC DAILY [facility] Last Admin: 10/27/16 10:21 Dose: Not Given Folic Acid (Folic Acid) 1 mg PO DAILY [facility] Last Admin: 10/27/16 10:21 Dose: 1 mg Hydromorphone HCl (Dilaudid) 2 mg IVP Q3 PRN PRN Reason: Pain, severe (8-10) Last Admin: 10/27/16 17:51 Dose: 2 mg Sodium Chloride (Sodium Chloride 0.9%) 1,000 mls @ 100 mls/hr IV .Q10H [facility] Last Admin: 10/27/16 14:02 Dose: 100 mls/hr Pantoprazole Sodium (Protonix Ec Tab) 40 mg PO DAILY [facility] Last Admin: 10/27/16 10:21 Dose: 40 mg - Labs Labs: 10/27/16 11:57 10/27/16 11:57 - Constitutional Appears: Well - Head Exam Head Exam: ATRAUMATIC, NORMAL INSPECTION, NORMOCEPHALIC - Eye Exam Eye Exam: EOMI, Normal appearance, PERRL Pupil Exam: NORMAL ACCOMODATION, PERRL - ENT Exam ENT Exam: Mucous Membranes Moist, Normal Exam - Neck Exam Neck Exam: Full ROM, Normal Inspection. absent: Lymphadenopathy - Respiratory Exam Respiratory Exam: Decreased Breath Sounds - Cardiovascular Exam Cardiovascular Exam: REGULAR RHYTHM, +S1, +S2 - GI/Abdominal Exam GI & Abdominal Exam: Soft, Diminished Bowel Sounds - Rectal Exam Rectal Exam: Deferred Assessment and Plan (1) Abdominal pain Status: Acute (2) Abdominal pain Status: Acute (3) Abnormal LFTs Status: Acute (4) Anemia Status: Acute (5) Cannabis use disorder, mild, abuse Status: Acute (6) Chronic abdominal pain Status: Acute (7) Chronic pain Status: Acute (8) Chronic pain disorder Status: Acute (9) Contusion of back Status: Acute (10) Contusion of hip, right Status: Acute (11) Dehydration Status: Acute (12) Drug-seeking behavior Status: Acute (13) Dysfunctional uterine bleeding Status: Acute (14) Elevated LFTs Status: Acute (15) Generalized pain Status: Acute (16) Headache Status: Acute (17) Hordeolum externum (stye) Status: Acute (18) Iron overload due to repeated red blood cell transfusions Status: Acute (19) Leukocytosis Status: Acute (20) Opioid abuse Status: Acute (21) Pain Status: Acute (22) Pain Status: Acute (23) Pain disorder Status: Acute (24) Pneumonia Status: Acute (25) Prophylactic measure Status: Acute (26) Sickle cell anemia Status: Acute (27) Sickle cell crisis Status: Acute (28) Sickle cell crisis Status: Acute (29) Sickle cell disease Status: Acute (30) Sickle cell pain crisis Status: Acute (31) Sickle cell trait Status: Acute (32) Sickle-cell disease with pain Status: Acute (33) 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
[2016-10-28] MEDS: DiphenhydrAMINE 50 mg/ml Inj IVP PRN ×8 (00:07→21:30)
[2016-10-28] MEDS: Sodium Chloride 0.9% 1,000 ML IV SCH ×2 (06:09→18:26)
[2016-10-28] MEDS: Pantoprazole 40 mg EC Tab PO SCH (09:57)
[2016-10-28] MEDS: Enoxaparin 40 mg Syringe SC SCH (09:58)
[2016-10-28] MEDS ORDERED: Heparin25000 units/250ml 1/2NS 25,000 UNITS/250 ML BAG IV PRN (12:04)
--- NOTE | 2016-10-28 13:42 | CP.PCM.PN ---
Subjective - Date & Time of Evaluation Date of Evaluation: 10/28/16 Time of Evaluation: 07:50 - Subjective Subjective: clinically same Objective - Vital Signs/Intake and Output Vital Signs (last 24 hours): Temp Pulse Resp BP Pulse Ox 98.4 F 75 20 104/62 97 10/28/16 07:18 10/28/16 07:18 10/28/16 07:18 10/28/16 07:18 10/28/16 07:18 Intake and Output: 10/28/16 10/28/16 06:59 18:59 Intake Total 2440 Balance 2440 - Medications Medications: Current Medications Diphenhydramine HCl (Benadryl) 25 mg IVP Q3 PRN PRN Reason: Itching / Pruritus Last Admin: 10/28/16 12:07 Dose: 25 mg Enoxaparin Sodium (Lovenox) 40 mg SC DAILY [facility] Last Admin: 10/28/16 09:58 Dose: Not Given Folic Acid (Folic Acid) 1 mg PO DAILY [facility] Last Admin: 10/28/16 09:57 Dose: 1 mg Hydromorphone HCl (Dilaudid) 2 mg IVP Q3 PRN PRN Reason: Pain, severe (8-10) Last Admin: 10/28/16 12:02 Dose: 2 mg Pantoprazole Sodium (Protonix Ec Tab) 40 mg PO DAILY [facility] Last Admin: 10/28/16 09:57 Dose: 40 mg - Labs Labs: 10/27/16 11:57 10/27/16 11:57 - Constitutional Appears: Well - Head Exam Head Exam: ATRAUMATIC, NORMAL INSPECTION, NORMOCEPHALIC - Eye Exam Eye Exam: EOMI, Normal appearance, PERRL Pupil Exam: NORMAL ACCOMODATION, PERRL - ENT Exam ENT Exam: Mucous Membranes Moist, Normal Exam - Neck Exam Neck Exam: Full ROM, Normal Inspection. absent: Lymphadenopathy - Respiratory Exam Respiratory Exam: Decreased Breath Sounds - Cardiovascular Exam Cardiovascular Exam: REGULAR RHYTHM, +S1, +S2 - GI/Abdominal Exam GI & Abdominal Exam: Soft, Diminished Bowel Sounds - Rectal Exam Rectal Exam: Deferred Assessment and Plan - Assessment and Plan (Free Text) Plan: f/u heme/onc continue Dilaudid Lovenox benadryl protonix
[2016-10-28 20:15] LABS: BASO # 0.1 K/uL (0.0-0.2); BASO % 0.6 % (0.0-2.0); EOS # 0.5 K/uL (0.0-0.7); EOS % 2.8 % (0.0-4.0); HEMATOCRIT 27.3 % (34.0-47.0); LYMPH # 6.7 K/uL (1.0-4.3); MEAN CORPUSCULAR HEMOGLOBIN 32.1 pg (27.0-31.0); MEAN CORPUSCULAR HGB CONC 32.8 g/dL (33.0-37.0); MEAN PLATELET VOLUME 8.2 fL (7.2-11.7); MONO # 1.1 K/uL (0.0-0.8); MONO % 6.7 % (0.0-10.0); NRBC % 1.4 % (0.0-2.0); RED CELL DISTRIBUTION WIDTH 18.5 % (11.5-14.5); WHITE BLOOD COUNT 16.3 K/uL (4.8-10.8)
[2016-10-28 21:04] LABS: CHLORIDE 99 mmol/L (98-107)
[2016-10-28 21:05] LABS: POTASSIUM 4.3 mmol/L (3.6-5.2); SODIUM 136 mmol/L (132-148)
[2016-10-28 21:07] LABS: ALB/GLOB RATIO 1.4 (1.0-2.1); AST/SGOT 64 U/L (14-36); BILIRUBIN,TOTAL 1.5 mg/dL (0.2-1.3); BLOOD UREA NITROGEN 9 mg/dL (7-17); CARBON DIOXIDE 28 mmol/L (22-30); GFR AFRICAN-AMERICAN > 60; TOTAL PROTEIN 7.2 g/dL (6.3-8.3)
[2016-10-28 21:08] LABS: ALKALINE PHOSPHATASE 118 U/L (38-126); ALT/SGPT 94 U/L (9-52); CALCIUM 8.8 mg/dl (8.6-10.4); GLUCOSE,RANDOM 85 mg/dL (65-105)
[2016-10-28 23:29] VITALS: RESP 20
[2016-10-29] MEDS: DiphenhydrAMINE 50 mg/ml Inj IVP PRN ×8 (00:35→22:42)
[2016-10-29] MEDS: Sodium Chloride 0.9% 1,000 ML IV SCH (03:51)
[2016-10-29] MEDS: Enoxaparin 40 mg Syringe SC SCH (09:50)
[2016-10-29] MEDS: Pantoprazole 40 mg EC Tab PO SCH (09:50)
--- NOTE | 2016-10-29 09:51 | CP.PCM.PN ---
Subjective - Date & Time of Evaluation Date of Evaluation: 10/29/16 Time of Evaluation: 10:00 - Subjective Subjective: clinically same Objective - Vital Signs/Intake and Output Vital Signs (last 24 hours): Temp Pulse Resp BP Pulse Ox 98 F 73 20 119/74 97 10/29/16 08:01 10/29/16 08:01 10/29/16 08:01 10/29/16 08:01 10/29/16 08:01 Intake and Output: 10/29/16 10/29/16 06:59 18:59 Intake Total 2320 Balance 2320 - Medications Medications: Current Medications Diphenhydramine HCl (Benadryl) 25 mg IVP Q3 PRN PRN Reason: Itching / Pruritus Last Admin: 10/29/16 07:15 Dose: 25 mg Enoxaparin Sodium (Lovenox) 40 mg SC DAILY [facility] Last Admin: 10/28/16 09:58 Dose: Not Given Folic Acid (Folic Acid) 1 mg PO DAILY [facility] Last Admin: 10/28/16 09:57 Dose: 1 mg Hydromorphone HCl (Dilaudid) 2 mg IVP Q3 PRN PRN Reason: Pain, severe (8-10) Last Admin: 10/29/16 07:15 Dose: 2 mg Pantoprazole Sodium (Protonix Ec Tab) 40 mg PO DAILY [facility] Last Admin: 10/28/16 09:57 Dose: 40 mg - Labs Labs: 10/28/16 18:00 10/28/16 20:54 - Constitutional Appears: Well - Head Exam Head Exam: ATRAUMATIC, NORMAL INSPECTION, NORMOCEPHALIC - Eye Exam Eye Exam: EOMI, Normal appearance, PERRL Pupil Exam: NORMAL ACCOMODATION, PERRL - ENT Exam ENT Exam: Mucous Membranes Moist, Normal Exam - Neck Exam Neck Exam: Full ROM, Normal Inspection. absent: Lymphadenopathy - Respiratory Exam Respiratory Exam: Decreased Breath Sounds - Cardiovascular Exam Cardiovascular Exam: REGULAR RHYTHM, +S1, +S2 - GI/Abdominal Exam GI & Abdominal Exam: Soft, Diminished Bowel Sounds - Rectal Exam Rectal Exam: Deferred Assessment and Plan - Assessment and Plan (Free Text) Plan: f/u heme/onc continue Dilaudid Lovenox benadryl protonix
[2016-10-30 20:09] LABS: BASO # 0.2 K/uL (0.0-0.2); BASO % 0.9 % (0.0-2.0); EOS # 0.5 K/uL (0.0-0.7); HEMATOCRIT 24.4 % (34.0-47.0); LYMPH # 6.2 K/uL (1.0-4.3); LYMPH % 35.5 % (20.0-40.0); MEAN CORPUSCULAR HEMOGLOBIN 31.8 pg (27.0-31.0); MEAN CORPUSCULAR HGB CONC 32.8 g/dL (33.0-37.0); MEAN PLATELET VOLUME 8.2 fL (7.2-11.7); MONO # 1.6 K/uL (0.0-0.8); NRBC % 1.2 % (0.0-2.0); RED CELL DISTRIBUTION WIDTH 23.5 % (11.5-14.5); WHITE BLOOD COUNT 17.3 K/uL (4.8-10.8)
[2016-10-30] MEDS: DiphenhydrAMINE 50 mg/ml Inj IVP PRN ×2 (20:20→23:52)
[2016-10-30 20:24] LABS: ALB/GLOB RATIO 1.3 (1.0-2.1); ALKALINE PHOSPHATASE 106 U/L (38-126); ALT/SGPT 79 U/L (9-52); AST/SGOT 65 U/L (14-36); BILIRUBIN,TOTAL 1.6 mg/dL (0.2-1.3); BLOOD UREA NITROGEN 10 mg/dL (7-17); CALCIUM 8.4 mg/dl (8.6-10.4); CARBON DIOXIDE 28 mmol/L (22-30); CHLORIDE 98 mmol/L (98-107); GFR AFRICAN-AMERICAN > 60; GLUCOSE,RANDOM 95 mg/dL (65-105); POTASSIUM 4.2 mmol/L (3.6-5.2); SODIUM 136 mmol/L (132-148); TOTAL PROTEIN 6.7 g/dL (6.3-8.3)
[2016-10-30] MEDS: Sodium Chloride 0.9% 1,000 ML IV SCH (20:27)
--- NOTE | 2016-10-30 22:30 | CP.PCM.PN ---
Subjective - Date & Time of Evaluation Date of Evaluation: 10/30/16 Time of Evaluation: 10:10 - Subjective Subjective: clinically same Objective - Vital Signs/Intake and Output Vital Signs (last 24 hours): Temp Pulse Resp BP Pulse Ox 98.4 F 75 20 114/58 L 100 10/29/16 16:00 10/29/16 16:00 10/29/16 16:00 10/29/16 16:00 10/29/16 16:00 Intake and Output: 10/30/16 10/31/16 18:59 06:59 Intake Total 800 Balance 800 - Medications Medications: Current Medications Diphenhydramine HCl (Benadryl) 25 mg IVP Q3 PRN PRN Reason: Itching / Pruritus Last Admin: 10/30/16 20:20 Dose: 25 mg Enoxaparin Sodium (Lovenox) 40 mg SC DAILY [facility] Last Admin: 10/29/16 09:50 Dose: Not Given Folic Acid (Folic Acid) 1 mg PO DAILY [facility] Last Admin: 10/29/16 09:51 Dose: 1 mg Hydromorphone HCl (Dilaudid) 2 mg IVP Q3 PRN PRN Reason: Pain, severe (8-10) Last Admin: 10/30/16 20:20 Dose: 2 mg Pantoprazole Sodium (Protonix Ec Tab) 40 mg PO DAILY [facility] Last Admin: 10/29/16 09:50 Dose: 40 mg - Labs Labs: 10/30/16 20:00 10/30/16 20:00 Assessment and Plan (1) Abdominal pain Status: Acute (2) Abdominal pain Status: Acute (3) Abnormal LFTs Status: Acute (4) Anemia Status: Acute (5) Cannabis use disorder, mild, abuse Status: Acute (6) Chronic abdominal pain Status: Acute (7) Chronic pain Status: Acute (8) Chronic pain disorder Status: Acute (9) Contusion of back Status: Acute (10) Contusion of hip, right Status: Acute (11) Dehydration Status: Acute (12) Drug-seeking behavior Status: Acute (13) Dysfunctional uterine bleeding Status: Acute (14) Elevated LFTs Status: Acute (15) Generalized pain Status: Acute (16) Headache Status: Acute (17) Hordeolum externum (stye) Status: Acute (18) Iron overload due to repeated red blood cell transfusions Status: Acute (19) Leukocytosis Status: Acute (20) Opioid abuse Status: Acute (21) Pain Status: Acute (22) Pain Status: Acute (23) Pain disorder Status: Acute (24) Pneumonia Status: Acute (25) Prophylactic measure Status: Acute (26) Sickle cell anemia Status: Acute (27) Sickle cell crisis Status: Acute (28) Sickle cell crisis Status: Acute (29) Sickle cell disease Status: Acute (30) Sickle cell pain crisis Status: Acute (31) Sickle cell trait Status: Acute (32) Sickle-cell disease with pain Status: Acute (33) 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
[2016-10-31] MEDS: DiphenhydrAMINE 50 mg/ml Inj IVP PRN ×6 (03:02→18:02)
[2016-10-31 08:17] VITALS: O2SAT 96
[2016-10-31] MEDS ORDERED: Sodium Chloride 0.9% 1,000 ML IV SCH (09:45)
[2016-10-31] MEDS: Pantoprazole 40 mg EC Tab PO SCH (11:18)
[2016-10-31] MEDS: Enoxaparin 40 mg Syringe SC SCH (11:18)
[2016-10-31 12:27] LABS: BASO # 0.1 K/uL (0.0-0.2); BASO % 0.8 % (0.0-2.0); EOS # 0.5 K/uL (0.0-0.7); EOS % 3.1 % (0.0-4.0); HEMATOCRIT 24.8 % (34.0-47.0); LYMPH # 5.6 K/uL (1.0-4.3); LYMPH % 37.6 % (20.0-40.0); MEAN CELL VOLUME 96.1 fL (81.0-99.0); MEAN CORPUSCULAR HGB CONC 33.3 g/dL (33.0-37.0); MEAN PLATELET VOLUME 8.2 fL (7.2-11.7); MONO # 1.4 K/uL (0.0-0.8); MONO % 9.6 % (0.0-10.0); NRBC % 1.7 % (0.0-2.0); RED CELL DISTRIBUTION WIDTH 22.2 % (11.5-14.5)
[2016-10-31 12:55] LABS: CHLORIDE 97 mmol/L (98-107); POTASSIUM 3.9 mmol/L (3.6-5.2); SODIUM 137 mmol/L (132-148)
[2016-10-31 12:57] LABS: ALB/GLOB RATIO 1.3 (1.0-2.1); AST/SGOT 76 U/L (14-36); CARBON DIOXIDE 28 mmol/L (22-30); GFR AFRICAN-AMERICAN > 60; TOTAL PROTEIN 6.9 g/dL (6.3-8.3)
[2016-10-31 12:58] LABS: ALKALINE PHOSPHATASE 107 U/L (38-126); ALT/SGPT 89 U/L (9-52); BLOOD UREA NITROGEN 8 mg/dL (7-17); CALCIUM 8.4 mg/dl (8.6-10.4); GLUCOSE,RANDOM 94 mg/dL (65-105)
--- NOTE | 2016-10-31 14:46 | CP.PCM.PN ---
Subjective - Date & Time of Evaluation Date of Evaluation: 10/31/16 Time of Evaluation: 14:46 - Subjective Subjective: 31 Y/O FEMALE WITH PMHX SICKLE CELL ANEMIA, ADMITTED HERE FOR GENERALIZED PAIN, HEADACHE, NAUSEA, PT SEEN AND EXAMINED TODAY, H/H 8.2/24.8 TODAY, PT DENIES ANY PAIN, NAUSEA, VOMITING. RESPIRATION EASY AND UNLABORED. NAD. PT EDUCATED TO FOLLOW UP WITH DR Tejal WILLINGHAM, RETURN TO ED IF ANY WORSENING SYMPTOMS. Objective - Vital Signs/Intake and Output Vital Signs (last 24 hours): Temp Pulse Resp BP Pulse Ox 98.1 F 72 20 116/72 96 10/31/16 07:34 10/31/16 07:34 10/31/16 07:34 10/31/16 07:34 10/31/16 07:34 Intake and Output: 10/31/16 10/31/16 06:59 18:59 Intake Total 1560 Balance 1560 - Medications Medications: Current Medications Diphenhydramine HCl (Benadryl) 25 mg IVP Q3 PRN PRN Reason: Itching / Pruritus Last Admin: 10/31/16 11:58 Dose: 25 mg Enoxaparin Sodium (Lovenox) 40 mg SC DAILY [facility] Last Admin: 10/31/16 11:18 Dose: Not Given Folic Acid (Folic Acid) 1 mg PO DAILY [facility] Last Admin: 10/31/16 11:18 Dose: 1 mg Hydromorphone HCl (Dilaudid) 2 mg IVP Q3 PRN PRN Reason: Pain, severe (8-10) Last Admin: 10/31/16 11:59 Dose: 2 mg Sodium Chloride (Sodium Chloride 0.9%) 1,000 mls @ 100 mls/hr IV .Q10H [facility] Last Admin: 10/31/16 11:17 Dose: 100 mls/hr Pantoprazole Sodium (Protonix Ec Tab) 40 mg PO DAILY [facility] Last Admin: 10/31/16 11:18 Dose: 40 mg - Labs Labs: 10/31/16 12:00 10/31/16 12:00
--- NOTE | 2016-10-31 17:32 | CP.PCM.PN ---
Subjective - Date & Time of Evaluation Date of Evaluation: 10/31/16 Time of Evaluation: 09:40 - Subjective Subjective: clinically same Objective - Vital Signs/Intake and Output Vital Signs (last 24 hours): Temp Pulse Resp BP Pulse Ox 98.1 F 72 20 116/72 96 10/31/16 07:34 10/31/16 07:34 10/31/16 07:34 10/31/16 07:34 10/31/16 07:34 Intake and Output: 10/31/16 10/31/16 06:59 18:59 Intake Total 1560 1000 Balance 1560 1000 - Medications Medications: Current Medications Diphenhydramine HCl (Benadryl) 25 mg IVP Q3 PRN PRN Reason: Itching / Pruritus Last Admin: 10/31/16 15:10 Dose: 25 mg Enoxaparin Sodium (Lovenox) 40 mg SC DAILY [facility] Last Admin: 10/31/16 11:18 Dose: Not Given Folic Acid (Folic Acid) 1 mg PO DAILY [facility] Last Admin: 10/31/16 11:18 Dose: 1 mg Hydromorphone HCl (Dilaudid) 2 mg IVP Q3 PRN PRN Reason: Pain, severe (8-10) Last Admin: 10/31/16 15:10 Dose: 2 mg Sodium Chloride (Sodium Chloride 0.9%) 1,000 mls @ 100 mls/hr IV .Q10H [facility] Last Admin: 10/31/16 11:17 Dose: 100 mls/hr Pantoprazole Sodium (Protonix Ec Tab) 40 mg PO DAILY [facility] Last Admin: 10/31/16 11:18 Dose: 40 mg - Labs Labs: 10/31/16 12:00 10/31/16 12:00 - Constitutional Appears: Well - Head Exam Head Exam: ATRAUMATIC, NORMAL INSPECTION, NORMOCEPHALIC - Eye Exam Eye Exam: EOMI, Normal appearance, PERRL Pupil Exam: NORMAL ACCOMODATION, PERRL - ENT Exam ENT Exam: Mucous Membranes Moist, Normal Exam - Neck Exam Neck Exam: Full ROM, Normal Inspection. absent: Lymphadenopathy - Respiratory Exam Respiratory Exam: Decreased Breath Sounds - Cardiovascular Exam Cardiovascular Exam: REGULAR RHYTHM, +S1, +S2 - GI/Abdominal Exam GI & Abdominal Exam: Soft, Diminished Bowel Sounds - Rectal Exam Rectal Exam: Deferred Assessment and Plan (1) Abdominal pain Status: Acute (2) Abdominal pain Status: Acute (3) Abnormal LFTs Status: Acute (4) Anemia Status: Acute (5) Cannabis use disorder, mild, abuse Status: Acute (6) Chronic abdominal pain Status: Acute (7) Chronic pain Status: Acute (8) Chronic pain disorder Status: Acute (9) Contusion of back Status: Acute (10) Contusion of hip, right Status: Acute (11) Dehydration Status: Acute (12) Drug-seeking behavior Status: Acute (13) Dysfunctional uterine bleeding Status: Acute (14) Elevated LFTs Status: Acute (15) Generalized pain Status: Acute (16) Headache Status: Acute (17) Hordeolum externum (stye) Status: Acute (18) Iron overload due to repeated red blood cell transfusions Status: Acute (19) Leukocytosis Status: Acute (20) Opioid abuse Status: Acute (21) Pain Status: Acute (22) Pain Status: Acute (23) Pain disorder Status: Acute (24) Pneumonia Status: Acute (25) Prophylactic measure Status: Acute (26) Sickle cell anemia Status: Acute (27) Sickle cell crisis Status: Acute (28) Sickle cell crisis Status: Acute (29) Sickle cell disease Status: Acute (30) Sickle cell pain crisis Status: Acute (31) Sickle cell trait Status: Acute (32) Sickle-cell disease with pain Status: Acute (33) 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 can be discharged today f/u with me at office adviced to come to ED if symptoms worsened
[2016-10-31 18:41] VITALS: BP 119/62; PULSE 86; TEMP 98.4
== END 2016-10-31 19:10 | disposition home or self-care (01) | DRG 395 ==
LOC: C.ER 12:29 → C.9E 19:51 → C.3T 20:35 → OBSVTOIN 10-25 13:15 → C.3T 10-26 06:24
PROVIDERS: ADMIT Internal Medicine Nephrology; ATTEND Internal Medicine Nephrology
DX: D57.00 Hb-SS disease with crisis, unspecified (principal); Z87.891 Personal history of nicotine dependence; Z68.22 Body mass index [BMI] 22.0-22.9, adult

== ENCOUNTER 2016-11-03 23:26 | Emergency (ER) | payer MEDICAID ==
[2016-11-03 23:28] VITALS: BMI 22.6
--- NOTE | 2016-11-04 00:21 | C.PDOC ---
History Of Present Illness 31 year old female well known to the ER with a PMH of sickle cell anemia, who presents with complaints of generalized body pain for 3 days. She also reports mild abdominal pain tonight associated with dysuria. Patient states she has not taken any medications for symptoms. Denies chest pain, SOB, or fever. Prior records reviewed, patient admitted 10/24-10/31 for sickle cell crisis and pain Time Seen by Provider: 11/03/16 23:45 Chief Complaint (Nursing): Medical Clearance History Per: Patient History/Exam Limitations: no limitations Onset/Duration Of Symptoms: Days (3) Current Symptoms Are (Timing): Still Present Reports Recently: Seen In ED Recent travel outside of the [place]: No Past Medical History Reviewed: Historical Data, Nursing Documentation, Vital Signs Vital Signs: Last Vital Signs Temp 98.1 F 11/04/16 02:23 Pulse 92 H 11/04/16 02:23 Resp 18 11/04/16 02:23 BP 114/72 11/04/16 02:23 Pulse Ox 97 11/04/16 02:50 - Medical History PMH: Anemia, Bronchitis, Gall Bladder Disease, Pneumonia, Sickle Cell Disease Surgical History: Cholecystectomy - [facility] Procedures INFLUENZA VACCINATION (03/16/12) INJECT/INFUSE ELECTROLYT (09/07/13) INJECT/INFUSE NEC (01/25/14) INSERTION OF INFUSION DEV INTO SUP VENA CAVA, PERC APPROACH (04/15/16) NEBULIZER THERAPY (12/02/13) PACKED CELL TRANSFUSION (02/12/15) REMOVAL OF VAD FROM TRUNK SUBCU/FASCIA, OPEN APPROACH (04/15/16) TRANSFUSE NONAUT RED BLOOD CELLS IN PERIPH VEIN, PERC (04/15/16) VACCINATION NEC (08/22/13) Family History: States: Unknown Family Hx - Social History Hx Tobacco Use: No Hx Alcohol Use: No Hx Substance Use: Yes (marijuana occasionally) - Immunization History Hx Tetanus Toxoid Vaccination: Yes Hx Influenza Vaccination: Yes (2015) Hx Pneumococcal Vaccination: Yes (2014) Review Of Systems Constitutional: Negative for: Fever Cardiovascular: Negative for: Chest Pain Respiratory: Negative for: Shortness of Breath Musculoskeletal: Positive for: Other (Generalized body pain) Physical Exam - Physical Exam Appears: Non-toxic Skin: Normal Color, Warm, Dry Head: Atraumatic, Normacephalic Eye(s): bilateral: Normal Inspection, EOMI Oral Mucosa: Moist Chest: Symmetrical, No Tenderness Cardiovascular: Rhythm Regular, No Murmur Respiratory: Normal Breath Sounds, No Rales, No Rhonchi, No Wheezing Gastrointestinal/Abdominal: Soft, No Tenderness Neurological/Psych: Oriented x3, Normal Speech, Other (No focal deficits) ED Course And Treatment - Laboratory Results Result Diagrams: 11/04/16 00:19 11/04/16 00:19 O2 Sat by Pulse Oximetry: 97 Medical Decision Making Medical Decision Making: Impression: 31 y.o female with body pain, well known to ED. Will order labs and follow PO protocol. Plan: * Benadryl PO * Dilaudid PO * Reglan PO Patient admitted 10/24-10/31 for sickle cell crisis and pain UA shows UTI, Cipro ordered Patient continued to complain of pain, second dose given Disposition Counseled Patient/Family Regarding: Diagnosis, Need For Followup, Rx Given - Disposition Referrals: Enzo Louis MD [Staff Provider] - Disposition: HOME/ ROUTINE Disposition Time: 03:25 Condition: GOOD Additional Instructions: Follow up with your primary doctor Your urine shows infection, take antibiotic twice daily Prescriptions: Ciprofloxacin [Cipro] 1 tab PO BID #10 tab Instructions: Urinary Tract Infection in Women (ED), Sickle Cell Crisis (GEN) - POA Present On Arrival: None - Clinical Impression Clinical Impression: Sickle cell pain crisis, UTI (urinary tract infection) - Scribe Statement The provider has reviewed the documentation as recorded by the Scribvalarie Bills All medical record entries made by the Scribe were at my direction and personally dictated by me. I have reviewed the chart and agree that the record accurately reflects my personal performance of the history, physical exam, medical decision making, and the department course for this patient. I have also personally directed, reviewed, and agree with the discharge instructions and disposition.
[2016-11-04 00:33] LABS: BASO # 0.1 K/uL (0.0-0.2); BASO % 0.5 % (0.0-2.0); EOS # 0.2 K/uL (0.0-0.7); EOS % 0.9 % (0.0-4.0); LYMPH % 22.7 % (20.0-40.0); MEAN CELL VOLUME 98.5 fL (81.0-99.0); MEAN CORPUSCULAR HEMOGLOBIN 32.6 pg (27.0-31.0); MEAN CORPUSCULAR HGB CONC 33.1 g/dL (33.0-37.0); MONO # 2.2 K/uL (0.0-0.8); MONO % 10.2 % (0.0-10.0); NRBC % 0.7 % (0.0-2.0); RED CELL DISTRIBUTION WIDTH 25.2 % (11.5-14.5)
[2016-11-04 00:38] LABS: RBC URINE < 1 /hpf (0-3); URINE BACTERIA RARE (<OCC); URINE BILIRUBIN NEGATIVE (NEGATIVE); URINE BLOOD NEGATIVE (NEGATIVE); URINE COLOR Yellow (YELLOW); URINE GLUCOSE (UA) NORMAL (Normal); URINE KETONE NEGATIVE (NEGATIVE); URINE LEUKOCYTE ESTERASE TRACE Leu/uL (Negative); URINE PROTEIN NEGATIVE (NEGATIVE); WBC URINE 10 /hpf (0-5)
[2016-11-04 00:40] LABS: CHLORIDE 103 mmol/L (98-107)
[2016-11-04 00:41] LABS: POTASSIUM 4.1 mmol/L (3.6-5.2); SODIUM 139 mmol/L (132-148)
[2016-11-04 00:43] LABS: CARBON DIOXIDE 25 mmol/L (22-30); GFR AFRICAN-AMERICAN > 60
[2016-11-04 00:44] LABS: ALB/GLOB RATIO 1.5 (1.0-2.1); ALKALINE PHOSPHATASE 107 U/L (38-126); ALT/SGPT 82 U/L (9-52); AST/SGOT 60 U/L (14-36); BLOOD UREA NITROGEN 9 mg/dL (7-17); CALCIUM 8.7 mg/dl (8.6-10.4); GLUCOSE,RANDOM 126 mg/dL (65-105); TOTAL PROTEIN 6.6 g/dL (6.3-8.3)
[2016-11-04 02:24] VITALS: BP 114/72; PULSE 92; RESP 18; TEMP 98.1
[2016-11-04 02:50] VITALS: O2SAT 97
== END 2016-11-04 03:32 | disposition home or self-care (01) ==
LOC: C.ER 23:26
DX: D57.00 Hb-SS disease with crisis, unspecified (principal); N39.0 Urinary tract infection, site not specified

== ENCOUNTER 2016-11-04 10:14 | Observation (INO) | payer MEDICAID ==
[2016-11-04 10:14] VITALS: BMI 22.6
[2016-11-04 12:14] LABS: RBC URINE < 1 /hpf (0-3); URINE BILIRUBIN NEGATIVE (NEGATIVE); URINE BLOOD NEGATIVE (NEGATIVE); URINE COLOR Yellow (YELLOW); URINE GLUCOSE (UA) NORMAL (Normal); URINE KETONE NEGATIVE (NEGATIVE); URINE LEUKOCYTE ESTERASE NEG Leu/uL (Negative); URINE PROTEIN NEGATIVE (NEGATIVE); URINE UROBILINOGEN NORMAL mg/dL (0.2-1.0); WBC URINE 3 /hpf (0-5)
[2016-11-04 12:15] LABS: BASO # 0.1 K/uL (0.0-0.2); MEAN CORPUSCULAR HGB CONC 33.5 g/dL (33.0-37.0); WHITE BLOOD COUNT 21.8 K/uL (4.8-10.8)
[2016-11-04 12:20] LABS: CHLORIDE 103 mmol/L (98-107); POTASSIUM 4.1 mmol/L (3.6-5.2); SODIUM 137 mmol/L (132-148)
[2016-11-04 12:22] LABS: ALB/GLOB RATIO 1.4 (1.0-2.1); AST/SGOT 48 U/L (14-36); BILIRUBIN,TOTAL 2.1 mg/dL (0.2-1.3); BLOOD UREA NITROGEN 7 mg/dL (7-17); CARBON DIOXIDE 24 mmol/L (22-30); GFR AFRICAN-AMERICAN > 60; TOTAL PROTEIN 6.8 g/dL (6.3-8.3)
[2016-11-04 12:23] LABS: ALKALINE PHOSPHATASE 99 U/L (38-126); ALT/SGPT 76 U/L (9-52); CALCIUM 8.9 mg/dl (8.6-10.4); GLUCOSE,RANDOM 87 mg/dL (65-105)
[2016-11-04 12:27] LABS: BASO % 0.3 % (0.0-2.0); EOS # 0.3 K/uL (0.0-0.7); EOS % 1.4 % (0.0-4.0); HEMATOCRIT 25.4 % (34.0-47.0); LYMPH # 4.3 K/uL (1.0-4.3); LYMPH % 19.8 % (20.0-40.0); MEAN CELL VOLUME 98.5 fL (81.0-99.0); MEAN PLATELET VOLUME 8.6 fL (7.2-11.7); MONO # 2.2 K/uL (0.0-0.8); MONO % 10.2 % (0.0-10.0); NRBC % 0.5 % (0.0-2.0); RED CELL DISTRIBUTION WIDTH 24.9 % (11.5-14.5)
--- NOTE | 2016-11-04 12:55 | C.PDOC ---
History Of Present Illness 31 year old patient, with a past medical history of sickle cell disease, presents to the ED complaining of body aches for 4 days. Patient states her pain is consistent with her usual sickle cell symptoms. Patient also complains of suprapubic pain since yesterday with some dysuria. Patient has a surgical history of cholecystectomy and splenectomy. Patient denies fever, chills, nausea , vomiting, diarrhea, vaginal bleeding or discharge. Time Seen by Provider: 11/04/16 10:57 Chief Complaint (Nursing): Pain, Chronic History Per: Patient History/Exam Limitations: no limitations Onset/Duration Of Symptoms: Days (4) Current Symptoms Are (Timing): Still Present Severity: Mild Pain Scale Rating Of: 3 Recent travel outside of the [place]: No Past Medical History Reviewed: Historical Data, Nursing Documentation, Vital Signs Vital Signs: Last Vital Signs Temp 97.8 F 11/04/16 15:41 Pulse 85 11/04/16 15:41 Resp 18 11/04/16 15:41 BP 115/72 11/04/16 15:41 Pulse Ox 99 11/04/16 16:15 - Medical History PMH: Anemia, Bronchitis, Gall Bladder Disease, Pneumonia, Sickle Cell Disease Surgical History: Cholecystectomy - [facility] Procedures INFLUENZA VACCINATION (03/16/12) INJECT/INFUSE ELECTROLYT (09/07/13) INJECT/INFUSE NEC (01/25/14) INSERTION OF INFUSION DEV INTO SUP VENA CAVA, PERC APPROACH (04/15/16) NEBULIZER THERAPY (12/02/13) PACKED CELL TRANSFUSION (02/12/15) REMOVAL OF VAD FROM TRUNK SUBCU/FASCIA, OPEN APPROACH (04/15/16) TRANSFUSE NONAUT RED BLOOD CELLS IN PERIPH VEIN, PERC (04/15/16) VACCINATION NEC (08/22/13) Family History: States: Unknown Family Hx - Social History Hx Tobacco Use: No Hx Alcohol Use: No Hx Substance Use: Yes (marijuana occasionally) - Immunization History Hx Tetanus Toxoid Vaccination: Yes Hx Influenza Vaccination: Yes (2015) Hx Pneumococcal Vaccination: Yes (2014) Review Of Systems Except As Marked, All Systems Reviewed And Found Negative. Constitutional: Positive for: Other (body aches). Negative for: Fever, Chills Gastrointestinal: Positive for: Abdominal Pain. Negative for: Nausea, Vomiting , Diarrhea Genitourinary: Positive for: Dysuria. Negative for: Vaginal Discharge, Vaginal Bleeding Physical Exam - Physical Exam Appears: Non-toxic, Other (mild painful distress) Skin: Warm, Dry Head: Atraumatic, Normacephalic Neck: Normal ROM, Supple Chest: Symmetrical Cardiovascular: Rhythm Regular, No Edema, No Murmur Respiratory: Normal Breath Sounds, No Decreased Breath Sounds, No Accessory Muscle Use, No Rales, No Rhonchi, No Wheezing Gastrointestinal/Abdominal: Bowel Sounds (normal), Soft, Tenderness (mild diffuse abdominal tenderness), No Mass, No Distention, No Guarding, No Rebound Back: Normal Inspection, No CVA Tenderness, No Vertebral Tenderness, No Decreased ROM, No Paraspinal Tenderness Extremity: Normal ROM, No Tenderness, No Swelling Neurological/Psych: Oriented x3 Gait: Steady ED Course And Treatment - Laboratory Results Result Diagrams: 11/04/16 11:57 11/04/16 11:57 O2 Sat by Pulse Oximetry: 99 (room air) Pulse Ox Interpretation: Normal - CT Scan/US CT A/P w/ PO contrast Other Rad Studies (CT/US): Read By Radiologist CT/US Interpretation: FINDINGS: LOWER THORAX: Unremarkable. LIVER: 1.5 centimeter right hepatic cyst. No gross lesion or ductal dilatation. GALLBLADDER AND BILE DUCTS: Cholecystectomy. PANCREAS: Unremarkable. No gross lesion or ductal dilatation. SPLEEN: Splenectomy. ADRENALS: Unremarkable. No mass. KIDNEYS AND URETERS: Incomplete rotation and ptotic right kidney. VASCULATURE: Unremarkable. No aortic aneurysm. BOWEL: Postsurgical stages of the stomach.. No obstruction. No gross mural thickening. APPENDIX: Unremarkable. Normal appendix. PERITONEUM: Unremarkable. No free fluid. No free air. LYMPH NODES: Unremarkable. No enlarged lymph nodes. BLADDER: Unremarkable. REPRODUCTIVE: Unremarkable. BONES: No acute fracture. OTHER FINDINGS: None. IMPRESSION: No significant interval change. No acute pathology. Medical Decision Making Medical Decision Making: Impression: 31 y/o female with body aches and abdominal pain Plan: * Labs * Dilaudid 16 mg po * Zofran 4 mg odt po ED OBSERVATION Date of observation admission: 11/04/16 Time of observation admission: 11:50 - Observation admission statement Patient is being placed in observation because:: Due to patient's sickle cell crisis and abdominal pain. - Goals of Observation Goals of observation are:: To monitor patient's signs, symptoms and response to treatment. - Progress Note Progress Note: 11/04/16 13:00 Labs reviewed. Hgc 8.5, patient's Hgb has been consistent with her recent ER visits. WBC is 21.8, prior visits show WBC of 15-17. Today's retic count is 14. Lab results d/w the patient. On re-evaluation, patient is laying in bed comfortably, continues to c/o body pain and diffuse abdominal pain. On exam, patient is laying in bed in mild acute painful distress. Abdomen remains soft with mild diffuse tenderness, with no guarding and no rebound. Patient given another dose of dilaudid 8 mg po, reglan 10 mg po and benadryl [address] A/P w/ oral contrast ordered. 11/04/16 14:41 CT still pending, patient is tolerating po contrast. Pain is controlled at this time. 11/04/16 16:11 CT A/P results still pending. On reevaluation, patient is siting up in bed comfortably, she is smiling, reports improvement of pain, is requesting for another dose of pain medication to alleviate her pain. She is also asking to eat. On exam, abdomen remains soft and mild suprapubic tenderness, with no guarding and no rebound. Given another dose of dilaudid [address] A/P results reviewed and shows no acute findings. Diagnostic results d/w the patient. Based on history, exam and diagnostic results, plan will be for outpatient f/u with pmd. Patient verbalize understanding of diagnosis and further plan of care. I have given the patient opportunity to ask questions. Follow up with pmd in 2 days without fail. Take antibiotic Rx prescribed yesterday for her UTI. Return to the ER at any time for any new or worsening symptoms. Disposition - Disposition Disposition: HOME/ ROUTINE Disposition Time: 11:50 (Pt placed in ED observation) Condition: IMPROVED - Clinical Impression Clinical Impression: Sickle cell crisis, Abdominal pain, UTI (urinary tract infection) - PA / ACCOUNT EXECUTIVE [employer] / Resident Statement MD/ has reviewed & agrees with the documentation as recorded. - Scribe Statement The provider has reviewed the documentation as recorded by the Scribe Sarah Louis All medical record entries made by the Scribe were at my direction and personally dictated by me. I have reviewed the chart and agree that the record accurately reflects my personal performance of the history, physical exam, medical decision making, and the department course for this patient. I have also personally directed, reviewed, and agree with the discharge instructions and disposition.
[2016-11-04] MEDS ORDERED: Iohexol 240 (50 ml) PO ONE (13:11)
[2016-11-04] MEDS ORDERED: Iohexol 240 (50 ml) ONE (13:16)
[2016-11-04 15:42] VITALS: BP 115/72; PULSE 85; RESP 18; TEMP 97.8
--- NOTE | 2016-11-04 15:58 | CT ---
PROCEDURE: CT Abdomen and Pelvis without intravenous contrast HISTORY: diffuse abd pain COMPARISON: 03/02/2016 TECHNIQUE: Without contrast.. Contrast Dose: Radiation dose: Total exam DLP = 449 mGy-cm. This CT exam was performed using one or more of the following dose reduction techniques: Automated exposure control, adjustment of the mA and/or kV according to patient size, and/or use of iterative reconstruction technique. FINDINGS: LOWER THORAX: Unremarkable. LIVER: 1.5 centimeter right hepatic cyst. No gross lesion or ductal dilatation. GALLBLADDER AND BILE DUCTS: Cholecystectomy. PANCREAS: Unremarkable. No gross lesion or ductal dilatation. SPLEEN: Splenectomy. ADRENALS: Unremarkable. No mass. KIDNEYS AND URETERS: Incomplete rotation and ptotic right kidney. VASCULATURE: Unremarkable. No aortic aneurysm. BOWEL: Postsurgical stages of the stomach.. No obstruction. No gross mural thickening. APPENDIX: Unremarkable. Normal appendix. PERITONEUM: Unremarkable. No free fluid. No free air. LYMPH NODES: Unremarkable. No enlarged lymph nodes. BLADDER: Unremarkable. REPRODUCTIVE: Unremarkable. BONES: No acute fracture. OTHER FINDINGS: None. IMPRESSION: No significant interval change. No acute pathology.
[2016-11-04 16:15] VITALS: O2SAT 99
== END 2016-11-04 16:17 | disposition home or self-care (01) ==
LOC: C.ER 10:14 → C.9OBSV 11:50
PROVIDERS: ADMIT Emergency Medicine; ATTEND Emergency Medicine
DX: D57.00 Hb-SS disease with crisis, unspecified (principal); N39.0 Urinary tract infection, site not specified
CPT/HCPCS: 74176; 80053; 81001; 85025; 85044; 87086; 99285; G0378; Q9966

== ENCOUNTER 2016-11-11 08:40 | Emergency (ER) | payer MEDICAID ==
[2016-11-11 08:44] VITALS: BMI 24.5
[2016-11-11 08:49] VITALS: RESP 16
--- NOTE | 2016-11-11 09:05 | C.PDOC ---
History Of Present Illness 31 y/o female presents to ED with complaints of Chronic body pain, worse since last night. Patient has PMHx of Sickle cell disease and has previously been seen at ED for similar symptoms. Patient reports running out of home narcotics. No other complaints at this time. Time Seen by Provider: 11/11/16 08:53 Chief Complaint (Nursing): Pain, Chronic History Per: Patient History/Exam Limitations: no limitations Onset/Duration Of Symptoms: Days Current Symptoms Are (Timing): Still Present Past Medical History Reviewed: Historical Data, Nursing Documentation, Vital Signs Vital Signs: Last Vital Signs Temp 97.8 F 11/11/16 12:06 Pulse 77 11/11/16 12:06 Resp 16 11/11/16 12:06 BP 116/79 11/11/16 12:06 Pulse Ox 99 11/11/16 12:06 - Medical History PMH: Anemia, Bronchitis, Gall Bladder Disease, Pneumonia, Sickle Cell Disease Surgical History: Cholecystectomy - [facility] Procedures INFLUENZA VACCINATION (03/16/12) INJECT/INFUSE ELECTROLYT (09/07/13) INJECT/INFUSE NEC (01/25/14) INSERTION OF INFUSION DEV INTO SUP VENA CAVA, PERC APPROACH (04/15/16) NEBULIZER THERAPY (12/02/13) PACKED CELL TRANSFUSION (02/12/15) REMOVAL OF VAD FROM TRUNK SUBCU/FASCIA, OPEN APPROACH (04/15/16) TRANSFUSE NONAUT RED BLOOD CELLS IN PERIPH VEIN, PERC (04/15/16) VACCINATION NEC (08/22/13) Family History: States: Unknown Family Hx - Social History Hx Tobacco Use: No Hx Alcohol Use: No Hx Substance Use: Yes (marijuana occasionally) - Immunization History Hx Tetanus Toxoid Vaccination: Yes Hx Influenza Vaccination: Yes (2015) Hx Pneumococcal Vaccination: Yes (2014) Review Of Systems Constitutional: Negative for: Fever, Chills Cardiovascular: Negative for: Chest Pain Respiratory: Negative for: Cough, Shortness of Breath Gastrointestinal: Negative for: Nausea, Vomiting, Diarrhea Genitourinary: Negative for: Dysuria Musculoskeletal: Positive for: Back Pain Neurological: Negative for: Weakness, Numbness Physical Exam - Physical Exam Appears: Non-toxic, No Acute Distress Skin: Normal Color, Warm Head: Atraumatic, Normacephalic Oral Mucosa: Moist Cardiovascular: Rhythm Regular Respiratory: Normal Breath Sounds, No Rales, No Rhonchi, No Wheezing Gastrointestinal/Abdominal: Soft, No Tenderness, No Guarding, No Rebound Back: Normal Inspection, No CVA Tenderness Extremity: Normal ROM Extremity: Bilateral: Atraumatic Neurological/Psych: Oriented x3, Normal Speech, Normal Cognition, Other (No focal deficits) ED Course And Treatment O2 Sat by Pulse Oximetry: 98 Medical Decision Making Medical Decision Makin pt requesting to be discharged Disposition - Disposition Disposition: HOME/ ROUTINE Disposition Time: 12:18 Condition: IMPROVED - Clinical Impression Clinical Impression: Sickle cell crisis - PA / [employer]MENT MANAGER / Resident Statement MD/DO has reviewed & agrees with the documentation as recorded. MD/DO has examined the patient and agrees with the treatment plan. - Scribe Statement The provider has reviewed the documentation as recorded by the Rosa Rodriguez All medical record entries made by the Rosa were at my direction and personally dictated by me. I have reviewed the chart and agree that the record accurately reflects my personal performance of the history, physical exam, medical decision making, and the department course for this patient. I have also personally directed, reviewed, and agree with the discharge instructions and disposition.
[2016-11-11 12:07] VITALS: BP 116/79; PULSE 77; TEMP 97.8
[2016-11-11 12:19] VITALS: O2SAT 98
== END 2016-11-11 12:26 | disposition home or self-care (01) ==
LOC: C.ER 08:40
DX: D57.00 Hb-SS disease with crisis, unspecified (principal)

== ENCOUNTER 2016-11-12 12:15 | Emergency (ER) | payer MEDICAID ==
[2016-11-12 12:16] VITALS: BMI 24.5
[2016-11-12 12:35] VITALS: RESP 18; TEMP 98.7; O2SAT 98
--- NOTE | 2016-11-12 13:25 | C.PDOC ---
History Of Present Illness 31 y/o female presents to the ED with complains of chronic generalized body pains. Pt with pmhx sickle cell disease, frequent visits to ED for the same. Denies chest pain, SOB, fever, vomiting or any other complaints. Time Seen by Provider: 11/12/16 12:46 Chief Complaint (Nursing): Pain, Chronic History Per: Patient History/Exam Limitations: no limitations Onset/Duration Of Symptoms: Days Current Symptoms Are (Timing): Still Present Severity: Moderate Reports Recently: Seen In ED, Treated By A Physician Recent travel outside of the [place]: No Past Medical History Reviewed: Historical Data, Nursing Documentation, Vital Signs Vital Signs: Last Vital Signs Temp 98.7 F 11/12/16 12:34 Pulse 82 11/12/16 14:22 Resp 18 11/12/16 14:22 BP 112/82 11/12/16 14:22 Pulse Ox 98 11/12/16 14:22 - Medical History PMH: Anemia, Bronchitis, Gall Bladder Disease, Pneumonia, Sickle Cell Disease Surgical History: Cholecystectomy - [facility] Procedures INFLUENZA VACCINATION (03/16/12) INJECT/INFUSE ELECTROLYT (09/07/13) INJECT/INFUSE NEC (01/25/14) INSERTION OF INFUSION DEV INTO SUP VENA CAVA, PERC APPROACH (04/15/16) NEBULIZER THERAPY (12/02/13) PACKED CELL TRANSFUSION (02/12/15) REMOVAL OF VAD FROM TRUNK SUBCU/FASCIA, OPEN APPROACH (04/15/16) TRANSFUSE NONAUT RED BLOOD CELLS IN PERIPH VEIN, PERC (04/15/16) VACCINATION NEC (08/22/13) Family History: States: Unknown Family Hx - Social History Hx Tobacco Use: No Hx Alcohol Use: No Hx Substance Use: Yes (marijuana occasionally) - Immunization History Hx Tetanus Toxoid Vaccination: Yes Hx Influenza Vaccination: Yes (2015) Hx Pneumococcal Vaccination: Yes (2014) Review Of Systems Except As Marked, All Systems Reviewed And Found Negative. Constitutional: Positive for: Other (generalized body pains). Negative for: Fever Cardiovascular: Negative for: Chest Pain Respiratory: Negative for: Shortness of Breath Gastrointestinal: Negative for: Vomiting Physical Exam - Physical Exam Appears: Non-toxic, No Acute Distress Skin: Warm, Dry, No Rash Head: Atraumatic, Normacephalic Neck: Normal, Normal ROM, Supple Chest: Symmetrical, No Tenderness Cardiovascular: Rhythm Regular, No Murmur Respiratory: Normal Breath Sounds, No Rales, No Rhonchi, No Wheezing Gastrointestinal/Abdominal: Normal Exam, Soft, No Tenderness, No Guarding, No Rebound Back: Normal Inspection Extremity: Normal ROM, No Tenderness Extremity: Bilateral: Atraumatic Neurological/Psych: Oriented x3, Normal Speech, Normal Motor, Normal Sensation ED Course And Treatment O2 Sat by Pulse Oximetry: 98 (room air) Pulse Ox Interpretation: Normal Progress Note: Adivsed patient to follow up with PMD/pain management for treatment of chronic pain. Reassessment Condition: Improved Disposition Counseled Patient/Family Regarding: Need For Followup - Disposition Referrals: Enzo Louis MD [Staff Provider] - [facility] [Outside] [facility] [Outside] Disposition: HOME/ ROUTINE Disposition Time: 14:00 Condition: STABLE Additional Instructions: Follow up for pain management Instructions: Chronic Pain (ED) - POA Present On Arrival: None - Clinical Impression Clinical Impression: Chronic pain, Pain - PA / SOFTBALL WINDER / Resident Statement MD/DO has reviewed & agrees with the documentation as recorded. - Scribe Statement The provider has reviewed the documentation as recorded by the Scribvalarie Kidd All medical record entries made by the Scribe were at my direction and personally dictated by me. I have reviewed the chart and agree that the record accurately reflects my personal performance of the history, physical exam, medical decision making, and the department course for this patient. I have also personally directed, reviewed, and agree with the discharge instructions and disposition.
[2016-11-12 14:22] VITALS: BP 112/82; PULSE 82
== END 2016-11-12 14:22 | disposition home or self-care (01) ==
LOC: C.ER 12:15
DX: G89.29 Other chronic pain (principal); D57.1 Sickle-cell disease without crisis

== ENCOUNTER 2016-11-17 08:25 | Emergency (ER) | payer MEDICAID ==
[2016-11-17 08:26] VITALS: BMI 24.5
--- NOTE | 2016-11-17 09:15 | C.PDOC ---
History Of Present Illness 31-year-old female, PMHx includes Anemia and Sickle cell disease, presents to the emergency department with complaints of diffuse body aches. Patient states that symptoms are consistent with her prior sickle cell crisis episodes. She has been seen in ED for same complaint multiple times in the past. Patient denies any fevers, shortness of breath, nausea/vomiting, symptoms, change in bowel habits, or any other associated symptoms. No other complaints at this time. Time Seen by Provider: 11/17/16 08:32 Chief Complaint (Nursing): Pain, Chronic History Per: Patient History/Exam Limitations: no limitations Onset/Duration Of Symptoms: Days Current Symptoms Are (Timing): Still Present Severity: Moderate Past Medical History Reviewed: Historical Data, Nursing Documentation, Vital Signs Vital Signs: Last Vital Signs Temp 98.2 F 11/17/16 08:29 Pulse 83 11/17/16 08:29 Resp 16 11/17/16 08:29 BP 112/71 11/17/16 08:29 Pulse Ox 96 11/17/16 09:21 - Medical History PMH: Anemia, Bronchitis, Gall Bladder Disease, Pneumonia, Sickle Cell Disease Surgical History: Cholecystectomy - [facility] Procedures INFLUENZA VACCINATION (03/16/12) INJECT/INFUSE ELECTROLYT (09/07/13) INJECT/INFUSE NEC (01/25/14) INSERTION OF INFUSION DEV INTO SUP VENA CAVA, PERC APPROACH (04/15/16) NEBULIZER THERAPY (12/02/13) PACKED CELL TRANSFUSION (02/12/15) REMOVAL OF VAD FROM TRUNK SUBCU/FASCIA, OPEN APPROACH (04/15/16) TRANSFUSE NONAUT RED BLOOD CELLS IN PERIPH VEIN, PERC (04/15/16) VACCINATION NEC (08/22/13) Family History: States: No Known Family Hx - Social History Hx Tobacco Use: No Hx Alcohol Use: No Hx Substance Use: Yes (marijuana occasionally) - Immunization History Hx Tetanus Toxoid Vaccination: Yes Hx Influenza Vaccination: Yes (2015) Hx Pneumococcal Vaccination: Yes (2014) Review Of Systems Except As Marked, All Systems Reviewed And Found Negative. Constitutional: Positive for: Malaise. Negative for: Fever, Chills Respiratory: Negative for: Cough, Shortness of Breath Gastrointestinal: Negative for: Nausea, Vomiting Neurological: Negative for: Weakness, Numbness, Headache, Dizziness Physical Exam - Physical Exam Appears: Non-toxic, No Acute Distress (Moderate), Other (Uncomfortable) Skin: Warm, Dry, No Rash Head: Atraumatic, Normacephalic Eye(s): bilateral: Normal Inspection Nose: Normal Oral Mucosa: Moist Neck: Normal ROM Cardiovascular: Rhythm Regular, No Murmur Respiratory: Normal Breath Sounds, No Accessory Muscle Use Gastrointestinal/Abdominal: Soft, No Tenderness Back: Normal Inspection Extremity: Normal ROM Neurological/Psych: Oriented x3 ED Course And Treatment O2 Sat by Pulse Oximetry: 96 Progress Note: Prior Visits. Notes and records from previous visits were reviewed. Patient seen in ED on 11/12 for same complaint and was treated with PO Dilaudid and Benadryl. Progress: Patient feels better after oral meds. States she feels comfortable going. Patient appears well and comfortable. She will be discharged with instructions to f/u outpatient with PMD for re-evaluation and treatment. Pt agreeable with plan. Disposition - Disposition Referrals: Enzo Louis MD [Staff Provider] - Disposition: HOME/ ROUTINE Disposition Time: 10:09 Condition: STABLE Additional Instructions: Follow up with your primary medical doctor or clinic in 2-5 days for further evaluation. Return to the emergency department at any time if symptoms persist or worsen. Instructions: Chronic Pain (ED) - Clinical Impression Clinical Impression: Chronic pain - Scribe Statement The provider has reviewed the documentation as recorded by the Scribe (Anika Shearer) All medical record entries made by the Scribe were at my direction and personally dictated by me. I have reviewed the chart and agree that the record accurately reflects my personal performance of the history, physical exam, medical decision making, and the department course for this patient. I have also personally directed, reviewed, and agree with the discharge instructions and disposition.
[2016-11-17 10:14] VITALS: O2SAT 97
[2016-11-17 11:46] VITALS: BP 116/74; PULSE 97; RESP 16; TEMP 98.4
== END 2016-11-17 12:05 | disposition home or self-care (01) ==
LOC: C.ER 08:25
DX: G89.29 Other chronic pain (principal)

== ENCOUNTER 2016-11-19 00:49 | Inpatient (IN) | payer MEDICAID ==
[2016-11-19 00:50] VITALS: BMI 24.5
[2016-11-19 02:14] LABS: RBC URINE < 1 /hpf (0-3); URINE BILIRUBIN NEGATIVE (NEGATIVE); URINE BLOOD NEGATIVE (NEGATIVE); URINE COLOR Yellow (YELLOW); URINE GLUCOSE (UA) NORMAL (Normal); URINE KETONE NEGATIVE (NEGATIVE); URINE LEUKOCYTE ESTERASE NEG Leu/uL (Negative); URINE PROTEIN NEGATIVE (NEGATIVE); URINE UROBILINOGEN NORMAL mg/dL (0.2-1.0); WBC URINE 2 /hpf (0-5)
--- NOTE | 2016-11-19 02:21 | C.PDOC ---
History Of Present Illness 31 year old patient presents to the ED complaining of abdominal pain Time Seen by Provider: 11/19/16 01:15 Chief Complaint (Nursing): Abdominal Pain History Per: Patient History/Exam Limitations: no limitations Current Symptoms Are (Timing): Still Present Context: Other Severity: Mild Pain Scale Rating Of: 3 Radiation Of Pain To:: None Quality Of Discomfort: "Pain" Exacerbating Factors: None Alleviating Factors: None Last Bowel Movement: Today Recent travel outside of the [place]: No Past Medical History Reviewed: Historical Data, Nursing Documentation, Vital Signs Vital Signs: Last Vital Signs Temp 98.5 F 11/19/16 01:05 Pulse 98 H 11/19/16 01:05 Resp 16 11/19/16 01:05 BP 118/77 11/19/16 01:05 Pulse Ox 96 11/19/16 01:05 - Medical History PMH: Anemia, Bronchitis, Gall Bladder Disease, Pneumonia, Sickle Cell Disease Surgical History: Cholecystectomy - [facility] Procedures INFLUENZA VACCINATION (03/16/12) INJECT/INFUSE ELECTROLYT (09/07/13) INJECT/INFUSE NEC (01/25/14) INSERTION OF INFUSION DEV INTO SUP VENA CAVA, PERC APPROACH (04/15/16) NEBULIZER THERAPY (12/02/13) PACKED CELL TRANSFUSION (02/12/15) REMOVAL OF VAD FROM TRUNK SUBCU/FASCIA, OPEN APPROACH (04/15/16) TRANSFUSE NONAUT RED BLOOD CELLS IN PERIPH VEIN, PERC (04/15/16) VACCINATION NEC (08/22/13) Family History: States: No Known Family Hx - Social History Hx Tobacco Use: No Hx Alcohol Use: No Hx Substance Use: Yes (marijuana occasionally) - Immunization History Hx Tetanus Toxoid Vaccination: Yes Hx Influenza Vaccination: Yes (2015) Hx Pneumococcal Vaccination: Yes (2014) Review Of Systems Except As Marked, All Systems Reviewed And Found Negative. Physical Exam - Physical Exam Appears: Non-toxic, No Acute Distress Skin: Warm, Dry Head: Atraumatic, Normacephalic Neck: Normal ROM, Supple Chest: Symmetrical Cardiovascular: Rhythm Regular Respiratory: Normal Breath Sounds, No Rales, No Rhonchi, No Wheezing Gastrointestinal/Abdominal: Soft, Tenderness, No Guarding, No Rebound Back: Normal Inspection, No CVA Tenderness Extremity: Normal ROM Neurological/Psych: Oriented x3, Normal Speech, Normal Cognition Gait: Steady ED Course And Treatment O2 Sat by Pulse Oximetry: 96 (room air) Pulse Ox Interpretation: Normal Progress Note: Labs were sent. Chest x-ray was taken. Benadryl, Dilaudid, and IV fluids were given. - Scribe Statement The provider has reviewed the documentation as recorded by the Scribe Sarah Louis Provider Attestation: All medical record entries made by the Scribe were at my direction and personally dictated by me. I have reviewed the chart and agree that the record accurately reflects my personal performance of the history, physical exam, medical decision making, and the department course for this patient. I have also personally directed, reviewed, and agree with the discharge instructions and disposition.
[2016-11-19 02:26] LABS: CHLORIDE 104 mmol/L (98-107)
[2016-11-19 02:27] LABS: POTASSIUM 3.9 mmol/L (3.6-5.2); SODIUM 141 mmol/L (132-148)
[2016-11-19 02:29] LABS: ALB/GLOB RATIO 1.3 (1.0-2.1); AST/SGOT 96 U/L (14-36); BILIRUBIN,TOTAL 1.8 mg/dL (0.2-1.3); CARBON DIOXIDE 24 mmol/L (22-30); GFR AFRICAN-AMERICAN > 60; TOTAL PROTEIN 7.4 g/dL (6.3-8.3)
--- NOTE | 2016-11-19 02:29 | C.PDOC ---
History Of Present Illness 31 year old patient presents to the ED complaining of generalized body aches, consistent with prior sickle cell pain. Patient also complaining of runny nose , sore throat, productive cough. She denies chest pain, shortness of breath, abdominal pain, vomiting, diarrhea, dysuria/hematuria. Time Seen by Provider: 11/19/16 01:15 Chief Complaint (Nursing): Abdominal Pain History Per: Patient History/Exam Limitations: no limitations Onset/Duration Of Symptoms: Persistent Current Symptoms Are (Timing): Still Present Context: Other Severity: Moderate Location Of Pain/Discomfort: Other (generalized body aches) Quality Of Discomfort: "Pain" Past Medical History Reviewed: Historical Data, Nursing Documentation, Vital Signs Vital Signs: Last Vital Signs Temp 98.5 F 11/23/16 15:00 Pulse 70 11/23/16 15:00 Resp 20 11/23/16 15:00 BP 129/80 11/23/16 15:00 Pulse Ox 96 11/23/16 17:52 - Medical History PMH: Anemia, Bronchitis, Gall Bladder Disease, Pneumonia, Sickle Cell Disease Surgical History: Cholecystectomy - [facility] Procedures INFLUENZA VACCINATION (03/16/12) INJECT/INFUSE ELECTROLYT (09/07/13) INJECT/INFUSE NEC (01/25/14) INSERTION OF INFUSION DEV INTO SUP VENA CAVA, PERC APPROACH (04/15/16) NEBULIZER THERAPY (12/02/13) PACKED CELL TRANSFUSION (02/12/15) REMOVAL OF VAD FROM TRUNK SUBCU/FASCIA, OPEN APPROACH (04/15/16) TRANSFUSE NONAUT RED BLOOD CELLS IN PERIPH VEIN, PERC (04/15/16) VACCINATION NEC (08/22/13) Family History: States: No Known Family Hx - Social History Hx Tobacco Use: No Hx Alcohol Use: No Hx Substance Use: Yes (marijuana occasionally) - Immunization History Hx Tetanus Toxoid Vaccination: Yes Hx Influenza Vaccination: Yes (2015) Hx Pneumococcal Vaccination: Yes (2014) Review Of Systems Except As Marked, All Systems Reviewed And Found Negative. Constitutional: Positive for: Other (generalized body aches) ENT: Positive for: Nose Discharge, Throat Pain Cardiovascular: Negative for: Chest Pain, Palpitations Respiratory: Positive for: Cough (productive). Negative for: Shortness of Breath Gastrointestinal: Negative for: Nausea, Vomiting, Abdominal Pain, Diarrhea Genitourinary: Negative for: Dysuria, Hematuria Physical Exam - Physical Exam Appears: Non-toxic, Other (uncomfortable) Skin: Warm, Dry Head: Normacephalic Eye(s): bilateral: Normal Inspection Nose: Discharge (clear rhinorrhea) Throat: Normal, No Erythema Neck: Supple Chest: Symmetrical Cardiovascular: Rhythm Regular Respiratory: Normal Breath Sounds, No Rales, No Rhonchi, No Wheezing, Other ( speaking in complete sentences) Gastrointestinal/Abdominal: Soft, No Tenderness Back: Normal Inspection, No CVA Tenderness Extremity: Normal ROM Neurological/Psych: Oriented x3, Normal Speech, Normal Cognition Gait: Steady ED Course And Treatment - Laboratory Results Result Diagrams: 11/23/16 06:10 11/23/16 06:10 O2 Sat by Pulse Oximetry: 96 (room air) Pulse Ox Interpretation: Normal - Radiology CXR: Interpreted by Me, Viewed By Me (no infiltrates/effusions) Progress Note: Blood work, CXR ordered and reviewed. Patient given IV NS bolus , PO Dilaudid and Benadryl according to ED Sickle Cell protocol. Reevaluation Time: 05:20 Reassessment Condition: Unchanged (Patient reassessed, dc c/o feeling weak, with body aches. S/p 3 rounds of PO pain meds without improvement - will admit for sickle cell crisis.) - Physician Consult Information Physician Contacted: Enzo Louis Outcome Of Conversation: Patient admitted to Dr. Ariel Louis's service for sickle cell crisis, viral Uri. Disposition - Disposition Disposition: HOSPITALIZED Disposition Time: 05:29 Condition: FAIR - Clinical Impression Clinical Impression: Sickle cell crisis, Viral upper respiratory infection - Scribe Statement The provider has reviewed the documentation as recorded by the Rosa Louis Provider Attestation: All medical record entries made by the Scribe were at my direction and personally dictated by me. I have reviewed the chart and agree that the record accurately reflects my personal performance of the history, physical exam, medical decision making, and the department course for this patient. I have also personally directed, reviewed, and agree with the discharge instructions and disposition. Decision To Admit - Pt Status Changed To: Hospital Disposition Of: Inpatient - Admit Certification Admit to Inpatient:: After my assessment, the patient will require hospitalization for at least two midnights. This is because of the severity of symptoms shown, intensity of services needed, and/or the medical risk in this patient being treated as an outpatient. - InPatient: Physician Admission Certification:: see notes - . Bed Request Type: Regular Admitting Physician: Enzo Louis Patient Diagnosis: Sickle cell crisis, Viral upper respiratory infection
[2016-11-19 02:30] LABS: ALKALINE PHOSPHATASE 141 U/L (38-126); ALT/SGPT 123 U/L (9-52); BLOOD UREA NITROGEN 11 mg/dL (7-17); CALCIUM 8.8 mg/dl (8.6-10.4); GLUCOSE,RANDOM 136 mg/dL (65-105)
[2016-11-19 02:51] LABS: BASO # 0.1 K/uL (0.0-0.2); BASO % 0.8 % (0.0-2.0); EOS # 0.1 K/uL (0.0-0.7); EOS % 0.5 % (0.0-4.0); HEMATOCRIT 25.9 % (34.0-47.0); LYMPH # 3.9 K/uL (1.0-4.3); LYMPH % 20.6 % (20.0-40.0); MEAN CELL VOLUME 104.3 fL (81.0-99.0); MEAN CORPUSCULAR HEMOGLOBIN 34.8 pg (27.0-31.0); MEAN CORPUSCULAR HGB CONC 33.4 g/dL (33.0-37.0); MEAN PLATELET VOLUME 8.1 fL (7.2-11.7); MONO # 1.5 K/uL (0.0-0.8); MONO % 7.9 % (0.0-10.0); NRBC % 1.2 % (0.0-2.0); RED CELL DISTRIBUTION WIDTH 29.9 % (11.5-14.5); WHITE BLOOD COUNT 18.7 K/uL (4.8-10.8)
[2016-11-19] MEDS: Sodium Chloride 0.9% 1,000 ML IV ONE ×2 (03:13→05:29)
[2016-11-19] MEDS ORDERED: Sodium Chloride 0.9% 500 ML IV ONE (04:17)
--- NOTE | 2016-11-19 07:13 | CP.PCM.PN ---
Subjective - Date & Time of Evaluation Date of Evaluation: 11/19/16 Time of Evaluation: 09:00 - Subjective Subjective: Dr. Mike Louis progress note: She is seen in room. She is complaing of body aches, some runny nose, sneezing , and coughing. She reports that having a URI seems to trigger her sickle cell crisis. She denies having any chest pain, shortness of breath, nausea, vomiting , diarrhea, or dysuria. Objective - Vital Signs/Intake and Output Vital Signs (last 24 hours): Temp Pulse Resp BP Pulse Ox 97.7 F 90 20 109/68 98 11/19/16 06:41 11/19/16 06:41 11/19/16 06:41 11/19/16 06:41 11/19/16 06:41 - Constitutional Appears: Non-toxic, No Acute Distress - Head Exam Head Exam: NORMOCEPHALIC - Eye Exam Eye Exam: Normal appearance Pupil Exam: NORMAL ACCOMODATION - ENT Exam ENT Exam: Normal Exam - Respiratory Exam Respiratory Exam: Clear to Ausculation Bilateral. absent: Rales, Rhonchi, Wheezes - Cardiovascular Exam Cardiovascular Exam: REGULAR RHYTHM, RRR, +S1, +S2. absent: Gallop, Rubs - GI/Abdominal Exam GI & Abdominal Exam: Soft, Normal Bowel Sounds. absent: Tenderness - Extremities Exam Extremities Exam: Normal Inspection. absent: Pedal Edema - Back Exam Back Exam: NORMAL INSPECTION - Psychiatric Exam Psychiatric exam: Normal Affect, Normal Mood - Skin Skin Exam: Normal Color Assessment and Plan (1) Sickle cell crisis Assessment & Plan: Patient given PO dilauded in the ED with Benadryl. Will start with 2mg Q4H of dilauded with benadryl for pain control, oxygen via nasal canula, and IV fluids at 150 cc/hr. Will need to reduce pain medication as tolerated. Continue patient's home hydroxurea and folic acid. High Retic count of 18. Status: Acute (2) Anemia Assessment & Plan: Hgb is 8.6, will need to monitor. Status: Acute (3) Leukocytosis Status: Acute (4) Transaminitis Assessment & Plan: Will re test for Hepatitis panel. Status: Chronic (5) Prophylactic measure Assessment & Plan: Heparin and protonix Status: Acute
[2016-11-19] MEDS ORDERED: Sodium Chloride 0.9% 1,000 ML IV SCH (07:30)
--- NOTE | 2016-11-19 08:37 | RAD ---
HISTORY: COUGH COMPARISON: 09/25/2016 TECHNIQUE: Chest PA and lateral FINDINGS: LUNGS: No active pulmonary disease. PLEURA: No significant pleural effusion identified. No pneumothorax apparent. CARDIOVASCULAR: Normal. OSSEOUS STRUCTURES: No significant abnormalities. VISUALIZED UPPER ABDOMEN: Normal. OTHER FINDINGS: None. IMPRESSION: No active disease.
[2016-11-19] MEDS ORDERED: DiphenhydrAMINE 50 mg/ml Inj IVP PRN ×2 (09:05→11:27)
[2016-11-19] MEDS ORDERED: DiphenhydrAMINE 50 mg/ml Inj IVP STA (09:05)
--- NOTE | 2016-11-19 12:27 | CP.PCM.CON ---
History of Present Illness - History of Present Illness History of Present Illness: 31 year old female with a history of sickle cell anemia admitted with sickle cell pain crisis. The patient reports to sore throat and runny nose which exacerbated her sickle pain. She reports her pain began in her lower chest and upper abdomen. This began to worsen and was not alleviated by by oral narcotics which prompted her to seek care in the ER. In the ER she continued to have pain despite pain medication and was admitted for further pain control. She denies fevers, chills, headache, shortness of breath, and chest pain. Her pain is diffuse in nature and consistent with prior sickle cell pain crisis. Past medical history: Sickle cell anemia. Past surgical history: Cholecystectomy, splenectomy, portacatheter placement. Family history: Father and sister has SS disease, mother and brother have sickle cell trait. Social history: Denies tobacco, alcohol, and illicit drug use. Allergies: Oxycodone, ketorolac. Review of systems: All remaining review of systems including HEENT, cardiovascular, respiratory, gastrointestinal, genitourinary, musculoskeletal, dermatologic, and neurologic are negative unless mentioned in the HPI. Past Patient History - Infectious Disease Hx of Infectious Diseases: None - Tetanus Immunizations Tetanus Immunization: Up to Date - Past Medical History & Family History Past Medical History?: Yes - Past Social History Smoking Status: Former Smoker - PULMONARY Hx Bronchitis: Yes Hx Pneumonia: Yes - HEENT Hx HEENT Problems: No - HEMATOLOGICAL/ONCOLOGICAL Hx Anemia: Yes Hx Sickle Cell Disease: Yes - INTEGUMENTARY Hx Dermatological Problems: No - MUSCULOSKELETAL/RHEUMATOLOGICAL Hx Falls: No - GASTROINTESTINAL Hx Gall Bladder Disease: Yes - PSYCHIATRIC Hx Substance Use: Yes (marijuana occasionally) - SURGICAL HISTORY Hx Cholecystectomy: Yes Hx Splenectomy: Yes Other/Comment: pot-a-cath removal x 2 - ANESTHESIA Hx Anesthesia: Yes Hx Anesthesia Reactions: No Hx Malignant Hyperthermia: No Meds Allergies/Adverse Reactions: Allergies Allergy/AdvReac Type Severity Reaction Status Date / Time FISH Allergy Severe RASH Verified 11/19/16 01:10 oxycodone Allergy Severe RASH Verified 11/19/16 01:10 tramadol Allergy Severe RASH Verified 11/19/16 01:10 ketorolac Allergy Intermediate RASH Verified 11/19/16 01:10 - Medications Medications: Current Medications Diphenhydramine HCl (Benadryl) 25 mg IVP Q6H PRN PRN Reason: Itching / Pruritus Folic Acid (Folic Acid) 1 mg PO DAILY [facility] Last Admin: 11/19/16 09:53 Dose: 1 mg Heparin Sodium (Porcine) (Heparin) 5,000 units SC Q12 [facility] Last Admin: 11/19/16 09:53 Dose: 5,000 units Hydromorphone HCl (Dilaudid) 2 mg IVP Q6H PRN PRN Reason: Pain, severe (8-10) Sodium Chloride (Sodium Chloride 0.9%) 1,000 mls @ 100 mls/hr IV .Q10H [facility] Last Admin: 11/19/16 09:42 Dose: 100 mls/hr Physical Exam - Head Exam Head Exam: ATRAUMATIC - Eye Exam Eye Exam: Normal appearance - ENT Exam ENT Exam: Mucous Membranes Dry - Respiratory Exam Respiratory Exam: NORMAL BREATHING PATTERN - Cardiovascular Exam Cardiovascular Exam: +S1, +S2 - GI/Abdominal Exam GI & Abdominal Exam: Normal Bowel Sounds - Extremities Exam Extremities exam: Positive for: normal inspection - Neurological Exam Neurological exam: Oriented x3 - Psychiatric Exam Psychiatric exam: Normal Affect, Normal Mood - Skin Skin Exam: Warm Results - Vital Signs Recent Vital Signs: Last Vital Signs Temp 97.7 F 11/19/16 08:03 Pulse 74 11/19/16 08:03 Resp 20 11/19/16 08:03 BP 105/66 11/19/16 08:03 Pulse Ox 97 11/19/16 08:03 - Labs Result Diagrams: 11/19/16 01:24 11/19/16 02:21 Assessment & Plan (1) Sickle cell pain crisis Assessment and Plan: IV fluids, pain meds, folic acid, 02 via NC no current transfusion indication Status: Acute (2) Leukocytosis Assessment and Plan: may be reactive to sickle cell Status: Acute (3) Sickle cell anemia Assessment and Plan: folic acid, does not like to take hydrea due to hair loss Thank you for this interesting consult. Status: Chronic
--- NOTE | 2016-11-19 14:28 | CP.PCM.HP ---
Past Patient History - Infectious Disease Hx of Infectious Diseases: None - Tetanus Immunizations Tetanus Immunization: Up to Date - Past Medical History & Family History Past Medical History?: Yes - Past Social History Smoking Status: Former Smoker - PULMONARY Hx Bronchitis: Yes Hx Pneumonia: Yes - HEENT Hx HEENT Problems: No - HEMATOLOGICAL/ONCOLOGICAL Hx Anemia: Yes Hx Sickle Cell Disease: Yes - INTEGUMENTARY Hx Dermatological Problems: No - MUSCULOSKELETAL/RHEUMATOLOGICAL Hx Falls: No - GASTROINTESTINAL Hx Gall Bladder Disease: Yes - PSYCHIATRIC Hx Substance Use: Yes (marijuana occasionally) - SURGICAL HISTORY Hx Cholecystectomy: Yes Hx Splenectomy: Yes Other/Comment: pot-a-cath removal x 2 - ANESTHESIA Hx Anesthesia: Yes Hx Anesthesia Reactions: No Hx Malignant Hyperthermia: No Meds Allergies/Adverse Reactions: Allergies Allergy/AdvReac Type Severity Reaction Status Date / Time FISH Allergy Severe RASH Verified 11/19/16 01:10 oxycodone Allergy Severe RASH Verified 11/19/16 01:10 tramadol Allergy Severe RASH Verified 11/19/16 01:10 ketorolac Allergy Intermediate RASH Verified 11/19/16 01:10 Physical Exam - Constitutional Appears: Well - Head Exam Head Exam: ATRAUMATIC, NORMAL INSPECTION, NORMOCEPHALIC - Eye Exam Eye Exam: EOMI, Normal appearance, PERRL Pupil Exam: NORMAL ACCOMODATION, PERRL - ENT Exam ENT Exam: Mucous Membranes Moist, Normal Exam - Neck Exam Neck exam: Positive for: Normal Inspection - Respiratory Exam Respiratory Exam: Decreased Breath Sounds - Cardiovascular Exam Cardiovascular Exam: REGULAR RHYTHM, +S1, +S2 - GI/Abdominal Exam GI & Abdominal Exam: Diminished Bowel Sounds, Soft - Rectal Exam Rectal Exam: Deferred Results - Vital Signs Recent Vital Signs: Last Vital Signs Temp 97.7 F 11/19/16 08:03 Pulse 74 11/19/16 08:03 Resp 20 11/19/16 08:03 BP 105/66 11/19/16 08:03 Pulse Ox 97 11/19/16 08:03 - Labs Result Diagrams: 11/19/16 01:24 11/19/16 02:21
[2016-11-19] MEDS: DiphenhydrAMINE 50 mg/ml Inj IVP PRN ×3 (14:48→22:53)
[2016-11-19] MEDS: Sodium Chloride 0.9% 1,000 ML IV SCH ×3 (14:49→22:31)
[2016-11-19] MEDS: Pantoprazole 20 mg EC Tab PO SCH (18:53)
[2016-11-20] MEDS: DiphenhydrAMINE 50 mg/ml Inj IVP PRN ×7 (02:54→23:40)
[2016-11-20] MEDS: Sodium Chloride 0.9% 1,000 ML IV SCH ×5 (03:25→23:25)
[2016-11-20] MEDS: Pantoprazole 20 mg EC Tab PO SCH (09:47)
[2016-11-20] MEDS ORDERED: Benzocaine/Menthol (Cepacol) Lozenge MT PRN (11:10)
[2016-11-20 11:52] LABS: BASO # 0.1 K/uL (0.0-0.2); BASO % 0.5 % (0.0-2.0); EOS # 0.3 K/uL (0.0-0.7); EOS % 1.9 % (0.0-4.0); HEMATOCRIT 22.5 % (34.0-47.0); LYMPH # 5.3 K/uL (1.0-4.3); LYMPH % 30.8 % (20.0-40.0); MEAN CORPUSCULAR HEMOGLOBIN 33.9 pg (27.0-31.0); MEAN CORPUSCULAR HGB CONC 33.6 g/dL (33.0-37.0); MEAN PLATELET VOLUME 8.4 fL (7.2-11.7); MONO # 1.3 K/uL (0.0-0.8); MONO % 7.8 % (0.0-10.0); NRBC % 1.1 % (0.0-2.0); RED CELL DISTRIBUTION WIDTH 27.8 % (11.5-14.5); WHITE BLOOD COUNT 17.1 K/uL (4.8-10.8)
[2016-11-20 12:00] LABS: MEAN CELL VOLUME 100.9 fL (81.0-99.0)
[2016-11-20 12:03] LABS: CHLORIDE 103 mmol/L (98-107); POTASSIUM 3.9 mmol/L (3.6-5.2); SODIUM 136 mmol/L (132-148)
[2016-11-20 12:05] LABS: ALB/GLOB RATIO 1.3 (1.0-2.1); ALKALINE PHOSPHATASE 121 U/L (38-126); ALT/SGPT 111 U/L (9-52); AST/SGOT 83 U/L (14-36); BILIRUBIN,TOTAL 2.3 mg/dL (0.2-1.3); BLOOD UREA NITROGEN 5 mg/dL (7-17); CARBON DIOXIDE 23 mmol/L (22-30); GFR AFRICAN-AMERICAN > 60; TOTAL PROTEIN 6.6 g/dL (6.3-8.3)
[2016-11-20 12:06] LABS: CALCIUM 8.3 mg/dl (8.6-10.4); GLUCOSE,RANDOM 74 mg/dL (65-105); MAGNESIUM 1.5 mg/dL (1.6-2.3); PHOSPHOROUS 3.3 mg/dL (2.5-4.5)
[2016-11-20 12:20] LABS: RETIC% 16.5 % (0.5-1.5)
--- NOTE | 2016-11-20 13:49 | CP.PCM.PN ---
Addendum entered and electronically signed by Kath Fragoso DO 11/20/16 13: 56: Hepatitis panel negative Original Note: <Kath Fragoso - Last Filed: 11/20/16 13:46> Subjective - Date & Time of Evaluation Date of Evaluation: 11/20/16 Time of Evaluation: 09:00 - Subjective Subjective: PGY2 Medicine Note - Dr. Tejal Louis's service: Patient seen and examined at bedside this AM. Patient reports continued congestion and cough since Thursday. Patient reports extreme chest wall pain with coughing. Patient has pain all over her body but mostly in her ribs. Patient denies fever, chills, SOB. Objective - Vital Signs/Intake and Output Vital Signs (last 24 hours): Temp Pulse Resp BP Pulse Ox 98.4 F 72 20 105/60 96 11/20/16 07:59 11/20/16 07:59 11/20/16 07:59 11/20/16 07:59 11/20/16 07:59 Intake and Output: 11/20/16 11/20/16 06:59 18:59 Intake Total 1640 Balance 1640 - Medications Medications: Current Medications Benzocaine/Menthol (Cepacol Sore Throat) 1 [address] [place] BID PRN PRN Reason: Sore Throat Diphenhydramine HCl (Benadryl) 25 mg IVP Q3H PRN PRN Reason: Itching / Pruritus Fluticasone Propionate (Flonase) 1 spr ROBE DAILY [facility] Folic Acid (Folic Acid) 1 mg PO DAILY [facility] Last Admin: 11/20/16 09:47 Dose: 1 mg Guaifenesin/Dextromethorphan (Robitussin Dm) 10 ml PO Q4H PRN PRN Reason: Cough and congestion Heparin Sodium (Porcine) (Heparin) 5,000 units SC Q12 [facility] Last Admin: 11/20/16 09:47 Dose: 5,000 units Hydromorphone HCl (Dilaudid) 2 mg IVP Q3H PRN PRN Reason: Pain, severe (8-10) Hydroxyurea (Hydrea) 500 mg PO TID [facility] Last Admin: 11/20/16 09:47 Dose: 500 mg Sodium Chloride (Sodium Chloride 0.9%) 1,000 mls @ 150 mls/hr IV .Q6H40M [facility] Last Admin: 11/20/16 05:54 Dose: 150 mls/hr Ibuprofen (Motrin Tab) 600 mg PO TID [facility] Pantoprazole Sodium (Protonix Ec Tab) 20 mg PO DAILY [facility] Last Admin: 11/20/16 09:47 Dose: 20 mg - Labs Labs: 11/20/16 11:43 11/20/16 11:43 - Constitutional Appears: Non-toxic, No Acute Distress - Head Exam Head Exam: NORMAL INSPECTION - Eye Exam Eye Exam: EOMI - ENT Exam ENT Exam: Mucous Membranes Moist - Respiratory Exam Respiratory Exam: Chest Wall Tenderness, Clear to Ausculation Bilateral, NORMAL BREATHING PATTERN. absent: Rales, Rhonchi, Wheezes - Cardiovascular Exam Cardiovascular Exam: REGULAR RHYTHM, +S1, +S2. absent: Gallop, Rubs, Murmur - GI/Abdominal Exam GI & Abdominal Exam: Soft, Normal Bowel Sounds. absent: Distended, Guarding, Tenderness - Extremities Exam Extremities Exam: Normal Capillary Refill, Tenderness. absent: Pedal Edema - Back Exam Back Exam: paraspinal tenderness - Neurological Exam Neurological Exam: Alert, Oriented x3 - Psychiatric Exam Psychiatric exam: Normal Affect, Normal Mood - Skin Skin Exam: Normal Color, Warm Assessment and Plan - Assessment and Plan (Free Text) Assessment: Sickle Cell Crisis Dilaudid 2mg IVP Q3H Benadryl 25mg IVP Q3H Folic Acid 1gm PO daily Patient does not like hydroxyurea because it makes her hair fall out Hematology consult - Dr. Portillo - help appreciated High Retic count of 18. URI 11/19/16 CXR - no active disease Flonase Robitussin Cepachol Ibuprofen for chest wall pain Anemia Hgb 7.5 Monitor Transfuse if below 7 Leukocytosis 17.1 with left shift Possibly a response to sickle cell Transaminitis F/U hepatitis panel Prophylactic Measure Heparin 5000U SC Q8 Protonix 40mg PO daily Management per Dr. Tejal Louis <Enzo Louis - Last Filed: 11/20/16 18:14> Objective - Vital Signs/Intake and Output Vital Signs (last 24 hours): Temp Pulse Resp BP Pulse Ox 98.1 F 70 20 142/62 93 L 11/20/16 15:00 11/20/16 15:00 11/20/16 15:00 11/20/16 15:00 11/20/16 15:00 Intake and Output: 11/20/16 11/20/16 06:59 18:59 Intake Total 1640 Balance 1640 - Medications Medications: Current Medications Benzocaine/Menthol (Cepacol Sore Throat) 1 [address] MT BID PRN PRN Reason: Sore Throat Diphenhydramine HCl (Benadryl) 25 mg IVP Q3H PRN PRN Reason: Itching / Pruritus Last Admin: 11/20/16 17:23 Dose: 25 mg Fluticasone Propionate (Flonase) 1 spr ROBE DAILY [facility] Last Admin: 11/20/16 14:07 Dose: Not Given Folic Acid (Folic Acid) 1 mg PO DAILY [facility] Last Admin: 11/20/16 09:47 Dose: 1 mg Guaifenesin/Dextromethorphan (Robitussin Dm) 10 ml PO Q4H PRN PRN Reason: Cough and congestion Last Admin: 11/20/16 17:39 Dose: 10 ml Heparin Sodium (Porcine) (Heparin) 5,000 units SC Q12 [facility] Last Admin: 11/20/16 09:47 Dose: 5,000 units Hydromorphone HCl (Dilaudid) 2 mg IVP Q3H PRN PRN Reason: Pain, severe (8-10) Last Admin: 11/20/16 17:23 Dose: 2 mg Hydroxyurea (Hydrea) 500 mg PO TID [facility] Last Admin: 11/20/16 17:32 Dose: 500 mg Sodium Chloride (Sodium Chloride 0.9%) 1,000 mls @ 150 mls/hr IV .Q6H40M [facility] Last Admin: 11/20/16 14:08 Dose: Not Given Ibuprofen (Motrin Tab) 600 mg PO TID [facility] Last Admin: 11/20/16 17:30 Dose: 600 mg Pantoprazole Sodium (Protonix Ec Tab) 20 mg PO DAILY [facility] Last Admin: 11/20/16 09:47 Dose: 20 mg - Labs Labs: 11/20/16 11:43 11/20/16 11:43 Attending/Attestation - Attestation I have personally seen and examined this patient.: Yes I have fully participated in the care of the patient.: Yes I have reviewed all pertinent clinical information, including history, physical exam and plan: Yes Notes (Text): 11/20/16 18:13 case seen and discussed with staff and resident mx as ordered change iv dialudid q 3 hr luís same
[2016-11-20] MEDS: guaiFENesin DM 200 mg-20 mg/10 ml UD PO PRN ×2 (14:05→17:39)
[2016-11-20] MEDS: Fluticasone Nasal 50 mcg/Spray NAS SCH (14:07)
--- NOTE | 2016-11-20 18:13 | CP.PCM.PN ---
Subjective - Date & Time of Evaluation Date of Evaluation: 11/20/16 Time of Evaluation: 12:30 - Subjective Subjective: Has pain in back and legs Objective - Vital Signs/Intake and Output Vital Signs (last 24 hours): Temp Pulse Resp BP Pulse Ox 98.1 F 70 20 142/62 93 L 11/20/16 15:00 11/20/16 15:00 11/20/16 15:00 11/20/16 15:00 11/20/16 15:00 Intake and Output: 11/20/16 11/20/16 06:59 18:59 Intake Total 1640 Balance 1640 - Medications Medications: Current Medications Benzocaine/Menthol (Cepacol Sore Throat) 1 chuck MT BID PRN PRN Reason: Sore Throat Diphenhydramine HCl (Benadryl) 25 mg IVP Q3H PRN PRN Reason: Itching / Pruritus Last Admin: 11/20/16 17:23 Dose: 25 mg Fluticasone Propionate (Flonase) 1 spr ROBE DAILY [facility] Last Admin: 11/20/16 14:07 Dose: Not Given Folic Acid (Folic Acid) 1 mg PO DAILY [facility] Last Admin: 11/20/16 09:47 Dose: 1 mg Guaifenesin/Dextromethorphan (Robitussin Dm) 10 ml PO Q4H PRN PRN Reason: Cough and congestion Last Admin: 11/20/16 17:39 Dose: 10 ml Heparin Sodium (Porcine) (Heparin) 5,000 units SC Q12 [facility] Last Admin: 11/20/16 09:47 Dose: 5,000 units Hydromorphone HCl (Dilaudid) 2 mg IVP Q3H PRN PRN Reason: Pain, severe (8-10) Last Admin: 11/20/16 17:23 Dose: 2 mg Hydroxyurea (Hydrea) 500 mg PO TID [facility] Last Admin: 11/20/16 17:32 Dose: 500 mg Sodium Chloride (Sodium Chloride 0.9%) 1,000 mls @ 150 mls/hr IV .Q6H40M [facility] Last Admin: 11/20/16 14:08 Dose: Not Given Ibuprofen (Motrin Tab) 600 mg PO TID [facility] Last Admin: 11/20/16 17:30 Dose: 600 mg Pantoprazole Sodium (Protonix Ec Tab) 20 mg PO DAILY [facility] Last Admin: 11/20/16 09:47 Dose: 20 mg - Labs Labs: 11/20/16 11:43 11/20/16 11:43 - Head Exam Head Exam: ATRAUMATIC - Eye Exam Eye Exam: Normal appearance - ENT Exam ENT Exam: Mucous Membranes Dry - Respiratory Exam Respiratory Exam: NORMAL BREATHING PATTERN - Cardiovascular Exam Cardiovascular Exam: +S1, +S2 - GI/Abdominal Exam GI & Abdominal Exam: Normal Bowel Sounds - Extremities Exam Extremities Exam: Normal Inspection Assessment and Plan (1) Sickle cell pain crisis Assessment & Plan: IV fluids, pain meds, 02 via NC, folic acid Status: Acute (2) Leukocytosis Assessment & Plan: likely reactive Status: Acute (3) Sickle cell anemia Assessment & Plan: folic acid and hydrea Status: Chronic
[2016-11-21] MEDS: DiphenhydrAMINE 50 mg/ml Inj IVP PRN ×7 (02:40→21:11)
[2016-11-21] MEDS: Sodium Chloride 0.9% 1,000 ML IV SCH ×3 (06:46→21:14)
[2016-11-21] MEDS: Fluticasone Nasal 50 mcg/Spray NAS SCH (09:06)
[2016-11-21] MEDS: guaiFENesin DM 200 mg-20 mg/10 ml UD PO PRN ×2 (09:07→18:37)
[2016-11-21] MEDS: Pantoprazole 20 mg EC Tab PO SCH (09:08)
[2016-11-21] MEDS ORDERED: Lidocaine 2% Inj (20ml) ONE (09:28)
--- NOTE | 2016-11-21 09:32 | PCM.SURG1 ---
Surgeon's Initial Post Op Note - Surgeon's Notes Surgeon: Diaz Jones MD Chrome Worker: NONE Type of Anesthesia: Local Pre-Operative Diagnosis: Poor venous access Operative Findings: Patent right basilic vein. Post-Operative Diagnosis: Poor venous access Operation Performed: Single lumen picc placement right baslic vein, 34 cm. Tip in SVC. Specimen/Specimens Removed: none Estimated Blood Loss: EBL {In ML}: 2 Blood Products Given: N/A Drains Used: No Drains Post-Op Condition: Fair Date of Surgery/Procedure: 11/21/16 Time of Surgery/Procedure: 09:30
--- NOTE | 2016-11-21 09:48 | CP.PCM.PN ---
Subjective - Date & Time of Evaluation Date of Evaluation: 11/21/16 Time of Evaluation: 11:00 - Subjective Subjective: PGY2 Medicine Note - Dr. Tejal Louis's service: Patient seen and examined at bedside this AM. Patient reports Objective - Vital Signs/Intake and Output Vital Signs (last 24 hours): Temp Pulse Resp BP Pulse Ox 98.2 F 72 20 120/75 95 11/20/16 23:33 11/20/16 23:33 11/20/16 23:33 11/20/16 23:33 11/20/16 23:33 - Medications Medications: Current Medications Benzocaine/Menthol (Cepacol Sore Throat) 1 [address] MT BID PRN PRN Reason: Sore Throat Diphenhydramine HCl (Benadryl) 25 mg IVP Q3H PRN PRN Reason: Itching / Pruritus Last Admin: 11/21/16 09:05 Dose: 25 mg Fluticasone Propionate (Flonase) 1 spr ROBE DAILY [facility] Last Admin: 11/21/16 09:06 Dose: 1 spray Folic Acid (Folic Acid) 1 mg PO DAILY [facility] Last Admin: 11/21/16 09:06 Dose: 1 mg Guaifenesin/Dextromethorphan (Robitussin Dm) 10 ml PO Q4H PRN PRN Reason: Cough and congestion Last Admin: 11/21/16 09:07 Dose: 10 ml Heparin Sodium (Porcine) (Heparin) 5,000 units SC Q12 [facility] Last Admin: 11/21/16 09:19 Dose: Not Given Hydromorphone HCl (Dilaudid) 2 mg IVP Q3H PRN PRN Reason: Pain, severe (8-10) Last Admin: 11/21/16 09:04 Dose: 2 mg Hydroxyurea (Hydrea) 500 mg PO TID [facility] Last Admin: 11/21/16 09:07 Dose: 500 mg Sodium Chloride (Sodium Chloride 0.9%) 1,000 mls @ 150 mls/hr IV .Q6H40M [facility] Last Admin: 11/21/16 06:46 Dose: Not Given Ibuprofen (Motrin Tab) 600 mg PO TID [facility] Last Admin: 11/21/16 09:05 Dose: 600 mg Pantoprazole Sodium (Protonix Ec Tab) 20 mg PO DAILY [facility] Last Admin: 11/21/16 09:08 Dose: 20 mg - Labs Labs: 11/20/16 11:43 11/20/16 11:43 Assessment and Plan - Assessment and Plan (Free Text) Assessment: Sickle Cell Crisis Dilaudid 2mg IVP Q3H Benadryl 25mg IVP Q3H Folic Acid 1gm PO daily Patient does not like hydroxyurea because it makes her hair fall out Hematology consult - Dr. Portillo - help appreciated High Retic count of 18 to 16.5 yesterday F/U retic count today URI 11/19/16 CXR - no active disease Flonase Robitussin Cepachol Ibuprofen for chest wall pain Anemia Hgb 7.5 Monitor Transfuse if below 7 Leukocytosis 17.1 with left shift Possibly reactive per Dr. Portillo Transaminitis hepatitis panel negative Continue to monitor Prophylactic Measure Heparin 5000U SC Q8 Protonix 40mg PO daily
--- NOTE | 2016-11-21 09:59 | CP.PCM.PN ---
Subjective - Date & Time of Evaluation Date of Evaluation: 11/21/16 Time of Evaluation: 12:00 - Subjective Subjective: PGY2 Medicine Note - Dr. Tejal Luois's service: Patient seen and examined at bedside. Patient reports continued full body pain. Patient says her cold is improving slowly. Patient still reports rib pain with coughing but says it is better. Objective - Vital Signs/Intake and Output Vital Signs (last 24 hours): Temp Pulse Resp BP Pulse Ox 98.2 F 72 20 120/75 95 11/20/16 23:33 11/20/16 23:33 11/20/16 23:33 11/20/16 23:33 11/20/16 23:33 - Medications Medications: Current Medications Benzocaine/Menthol (Cepacol Sore Throat) 1 chuck MT BID PRN PRN Reason: Sore Throat Diphenhydramine HCl (Benadryl) 25 mg IVP Q3H PRN PRN Reason: Itching / Pruritus Last Admin: 11/21/16 09:05 Dose: 25 mg Fluticasone Propionate (Flonase) 1 spr ROBE DAILY [facility] Last Admin: 11/21/16 09:06 Dose: 1 spray Folic Acid (Folic Acid) 1 mg PO DAILY [facility] Last Admin: 11/21/16 09:06 Dose: 1 mg Guaifenesin/Dextromethorphan (Robitussin Dm) 10 ml PO Q4H PRN PRN Reason: Cough and congestion Last Admin: 11/21/16 09:07 Dose: 10 ml Heparin Sodium (Porcine) (Heparin) 5,000 units SC Q12 [facility] Last Admin: 11/21/16 09:19 Dose: Not Given Hydromorphone HCl (Dilaudid) 2 mg IVP Q3H PRN PRN Reason: Pain, severe (8-10) Last Admin: 11/21/16 09:04 Dose: 2 mg Hydroxyurea (Hydrea) 500 mg PO TID [facility] Last Admin: 11/21/16 09:07 Dose: 500 mg Sodium Chloride (Sodium Chloride 0.9%) 1,000 mls @ 150 mls/hr IV .Q6H40M [facility] Last Admin: 11/21/16 06:46 Dose: Not Given Ibuprofen (Motrin Tab) 600 mg PO TID [facility] Last Admin: 11/21/16 09:05 Dose: 600 mg Pantoprazole Sodium (Protonix Ec Tab) 20 mg PO DAILY [facility] Last Admin: 11/21/16 09:08 Dose: 20 mg - Labs Labs: 11/20/16 11:43 11/20/16 11:43 - Constitutional Appears: Non-toxic, No Acute Distress - Head Exam Head Exam: NORMAL INSPECTION - Eye Exam Eye Exam: EOMI - ENT Exam ENT Exam: Mucous Membranes Moist - Respiratory Exam Respiratory Exam: Clear to Ausculation Bilateral, NORMAL BREATHING PATTERN. absent: Rales, Rhonchi, Wheezes - Cardiovascular Exam Cardiovascular Exam: REGULAR RHYTHM, +S1, +S2 - GI/Abdominal Exam GI & Abdominal Exam: Soft, Normal Bowel Sounds. absent: Tenderness - Extremities Exam Extremities Exam: Tenderness. absent: Pedal Edema - Neurological Exam Neurological Exam: Alert, Awake, Normal Gait, Oriented x3 - Psychiatric Exam Psychiatric exam: Normal Affect, Normal Mood - Skin Skin Exam: Normal Color, Warm Assessment and Plan - Assessment and Plan (Free Text) Assessment: Sickle Cell Crisis Dilaudid 2mg IVP Q3H Benadryl 25mg IVP Q3H Folic Acid 1gm PO daily Patient does not like hydroxyurea because it makes her hair fall out Hematology consult - Dr. Portillo - help appreciated High Retic count of 18 to 16.5 yesterday F/U retic count today URI 11/19/16 CXR - no active disease Flonase Robitussin Cepachol Ibuprofen for chest wall pain Anemia Hgb 7.5 Monitor Transfuse if below 7 Leukocytosis 17.1 with left shift Possibly reactive per Dr. Portillo Transaminitis hepatitis panel negative Continue to monitor Prophylactic Measure Heparin 5000U SC Q8 Protonix 40mg PO daily
[2016-11-21 12:11] LABS: BASO # 0.1 K/uL (0.0-0.2); BASO % 0.7 % (0.0-2.0); EOS # 0.4 K/uL (0.0-0.7); EOS % 2.8 % (0.0-4.0); HEMATOCRIT 20.9 % (34.0-47.0); LYMPH # 4.1 K/uL (1.0-4.3); LYMPH % 25.7 % (20.0-40.0); MEAN CELL VOLUME 99.9 fL (81.0-99.0); MEAN CORPUSCULAR HEMOGLOBIN 34.2 pg (27.0-31.0); MEAN CORPUSCULAR HGB CONC 34.2 g/dL (33.0-37.0); MEAN PLATELET VOLUME 8.3 fL (7.2-11.7); MONO # 1.1 K/uL (0.0-0.8); MONO % 6.7 % (0.0-10.0); RED CELL DISTRIBUTION WIDTH 28.1 % (11.5-14.5); RETIC% 16.1 % (0.5-1.5); WHITE BLOOD COUNT 15.8 K/uL (4.8-10.8)
[2016-11-21 12:23] LABS: CHLORIDE 102 mmol/L (98-107); POTASSIUM 3.6 mmol/L (3.6-5.2); SODIUM 139 mmol/L (132-148)
[2016-11-21 12:26] LABS: ALB/GLOB RATIO 1.4 (1.0-2.1); ALKALINE PHOSPHATASE 129 U/L (38-126); ALT/SGPT 118 U/L (9-52); AST/SGOT 97 U/L (14-36); BILIRUBIN,TOTAL 2.3 mg/dL (0.2-1.3); BLOOD UREA NITROGEN 8 mg/dL (7-17); CARBON DIOXIDE 28 mmol/L (22-30); GFR AFRICAN-AMERICAN > 60; GLUCOSE,RANDOM 97 mg/dL (65-105); TOTAL PROTEIN 6.9 g/dL (6.3-8.3)
[2016-11-21 16:23] VITALS: RESP 20
--- NOTE | 2016-11-21 16:40 | CP.PCM.PN ---
Subjective - Date & Time of Evaluation Date of Evaluation: 11/21/16 Time of Evaluation: 08:00 - Subjective Subjective: clinically same Objective - Vital Signs/Intake and Output Vital Signs (last 24 hours): Temp Pulse Resp BP Pulse Ox 98.1 F 84 20 118/76 97 11/21/16 16:00 11/21/16 16:00 11/21/16 16:00 11/21/16 16:00 11/21/16 16:00 Intake and Output: 11/21/16 11/21/16 06:59 18:59 Intake Total 1100 Balance 1100 - Medications Medications: Current Medications Benzocaine/Menthol (Cepacol Sore Throat) 1 chuck MT BID PRN PRN Reason: Sore Throat Diphenhydramine HCl (Benadryl) 25 mg IVP Q3H PRN PRN Reason: Itching / Pruritus Last Admin: 11/21/16 15:09 Dose: 25 mg Fluticasone Propionate (Flonase) 1 spr ROBE DAILY [facility] Last Admin: 11/21/16 09:06 Dose: 1 spray Folic Acid (Folic Acid) 1 mg PO DAILY [facility] Last Admin: 11/21/16 09:06 Dose: 1 mg Guaifenesin/Dextromethorphan (Robitussin Dm) 10 ml PO Q4H PRN PRN Reason: Cough and congestion Last Admin: 11/21/16 09:07 Dose: 10 ml Heparin Sodium (Porcine) (Heparin) 5,000 units SC Q12 [facility] Last Admin: 11/21/16 09:19 Dose: Not Given Hydromorphone HCl (Dilaudid) 2 mg IVP Q3H PRN PRN Reason: Pain, severe (8-10) Last Admin: 11/21/16 15:10 Dose: 2 mg Hydroxyurea (Hydrea) 500 mg PO TID [facility] Last Admin: 11/21/16 09:07 Dose: 500 mg Sodium Chloride (Sodium Chloride 0.9%) 1,000 mls @ 150 mls/hr IV .Q6H40M [facility] Last Admin: 11/21/16 12:17 Dose: 150 mls/hr Ibuprofen (Motrin Tab) 600 mg PO TID [facility] Last Admin: 11/21/16 09:05 Dose: 600 mg Pantoprazole Sodium (Protonix Ec Tab) 20 mg PO DAILY [facility] Last Admin: 11/21/16 09:08 Dose: 20 mg - Labs Labs: 11/21/16 12:00 11/21/16 12:00 - Constitutional Appears: Well - Head Exam Head Exam: ATRAUMATIC, NORMAL INSPECTION, NORMOCEPHALIC - Eye Exam Eye Exam: EOMI, Normal appearance, PERRL Pupil Exam: NORMAL ACCOMODATION, PERRL - ENT Exam ENT Exam: Mucous Membranes Moist, Normal Exam - Neck Exam Neck Exam: Full ROM, Normal Inspection. absent: Lymphadenopathy - Respiratory Exam Respiratory Exam: Decreased Breath Sounds - Cardiovascular Exam Cardiovascular Exam: REGULAR RHYTHM, +S1, +S2 - GI/Abdominal Exam GI & Abdominal Exam: Soft, Diminished Bowel Sounds - Rectal Exam Rectal Exam: Deferred
--- NOTE | 2016-11-21 20:46 | CP.PCM.PN ---
Subjective - Date & Time of Evaluation Date of Evaluation: 11/21/16 Time of Evaluation: 12:10 - Subjective Subjective: Has pain Objective - Vital Signs/Intake and Output Vital Signs (last 24 hours): Temp Pulse Resp BP Pulse Ox 98.1 F 84 20 118/76 97 11/21/16 16:00 11/21/16 16:00 11/21/16 16:00 11/21/16 16:00 11/21/16 16:00 Intake and Output: 11/21/16 11/22/16 18:59 06:59 Intake Total 1100 Balance 1100 - Medications Medications: Current Medications Benzocaine/Menthol (Cepacol Sore Throat) 1 chuck MT BID PRN PRN Reason: Sore Throat Diphenhydramine HCl (Benadryl) 25 mg IVP Q3H PRN PRN Reason: Itching / Pruritus Last Admin: 11/21/16 18:00 Dose: 25 mg Fluticasone Propionate (Flonase) 1 spr ROBE DAILY [facility] Last Admin: 11/21/16 09:06 Dose: 1 spray Folic Acid (Folic Acid) 1 mg PO DAILY [facility] Last Admin: 11/21/16 09:06 Dose: 1 mg Guaifenesin/Dextromethorphan (Robitussin Dm) 10 ml PO Q4H PRN PRN Reason: Cough and congestion Last Admin: 11/21/16 18:37 Dose: 10 ml Heparin Sodium (Porcine) (Heparin) 5,000 units SC Q12 [facility] Last Admin: 11/21/16 09:19 Dose: Not Given Hydromorphone HCl (Dilaudid) 2 mg IVP Q3H PRN PRN Reason: Pain, severe (8-10) Last Admin: 11/21/16 18:01 Dose: 2 mg Hydroxyurea (Hydrea) 500 mg PO TID [facility] Last Admin: 11/21/16 18:38 Dose: 500 mg Sodium Chloride (Sodium Chloride 0.9%) 1,000 mls @ 150 mls/hr IV .Q6H40M [facility] Last Admin: 11/21/16 12:17 Dose: 150 mls/hr Ibuprofen (Motrin Tab) 600 mg PO TID [facility] Last Admin: 11/21/16 18:02 Dose: 600 mg Pantoprazole Sodium (Protonix Ec Tab) 20 mg PO DAILY [facility] Last Admin: 11/21/16 09:08 Dose: 20 mg - Labs Labs: 11/21/16 12:00 11/21/16 12:00 - Head Exam Head Exam: ATRAUMATIC - Eye Exam Eye Exam: Normal appearance - ENT Exam ENT Exam: Mucous Membranes Dry - Respiratory Exam Respiratory Exam: NORMAL BREATHING PATTERN - Cardiovascular Exam Cardiovascular Exam: +S1, +S2 - GI/Abdominal Exam GI & Abdominal Exam: Normal Bowel Sounds - Extremities Exam Extremities Exam: Normal Inspection Assessment and Plan (1) Sickle cell pain crisis Assessment & Plan: IV fluids, folic acid, pain meds, 02 via NC Status: Acute (2) Leukocytosis Assessment & Plan: likely reactive Status: Acute (3) Sickle cell anemia Assessment & Plan: folic acid and hydrea Status: Chronic
[2016-11-22] MEDS: DiphenhydrAMINE 50 mg/ml Inj IVP PRN ×7 (00:50→21:06)
[2016-11-22] MEDS: guaiFENesin DM 200 mg-20 mg/10 ml UD PO PRN ×2 (01:02→10:08)
[2016-11-22] MEDS: Sodium Chloride 0.9% 1,000 ML IV SCH ×3 (02:30→10:11)
[2016-11-22 07:05] LABS: BASO # 0.1 K/uL (0.0-0.2); BASO % 0.7 % (0.0-2.0); EOS # 0.5 K/uL (0.0-0.7); EOS % 3.3 % (0.0-4.0); HEMATOCRIT 17.5 % (34.0-47.0); LYMPH # 6.5 K/uL (1.0-4.3); LYMPH % 44.1 % (20.0-40.0); MEAN CORPUSCULAR HEMOGLOBIN 33.2 pg (27.0-31.0); MEAN CORPUSCULAR HGB CONC 33.5 g/dL (33.0-37.0); MEAN PLATELET VOLUME 8.4 fL (7.2-11.7); MONO # 1.1 K/uL (0.0-0.8); MONO % 7.5 % (0.0-10.0); RED CELL DISTRIBUTION WIDTH 26.1 % (11.5-14.5); RETIC% 12.3 % (0.5-1.5); WHITE BLOOD COUNT 14.8 K/uL (4.8-10.8)
[2016-11-22 07:24] LABS: CHLORIDE 107 mmol/L (98-107)
[2016-11-22 07:25] LABS: POTASSIUM 3.8 mmol/L (3.6-5.2); SODIUM 141 mmol/L (132-148)
[2016-11-22 07:27] LABS: ALKALINE PHOSPHATASE 120 U/L (38-126); ALT/SGPT 117 U/L (9-52); AST/SGOT 91 U/L (14-36); BLOOD UREA NITROGEN 8 mg/dL (7-17); CARBON DIOXIDE 26 mmol/L (22-30); GFR AFRICAN-AMERICAN > 60; TOTAL PROTEIN 6.1 g/dL (6.3-8.3)
[2016-11-22 07:28] LABS: GLUCOSE,RANDOM 75 mg/dL (65-105)
[2016-11-22 07:56] LABS: ALB/GLOB RATIO 1.3 (1.0-2.1)
[2016-11-22] MEDS: Fluticasone Nasal 50 mcg/Spray NAS SCH (09:53)
[2016-11-22] MEDS: Pantoprazole 20 mg EC Tab PO SCH (09:53)
--- NOTE | 2016-11-22 11:37 | CP.PCM.PN ---
Subjective - Date & Time of Evaluation Date of Evaluation: 11/22/16 Time of Evaluation: 11:36 - Subjective Subjective: 31 Y/O FEMALE SEEN AND EXAMINED, PT WITH PMHX SICKLE CELL ANEMIA, ADMITTED FOR [facility], H/H 5.9/17.5 TODAY, 1 UNIT BLOOD TRANSFUSION ORDERED BY DR WILLINGHAM, CONSENT FOR BLOOD TRANSFUSION OBTAINED BY ME, WITNESSED BY ZINA ESTRADA, PT REPORTS SHE HAD MULTIPLE BLOOD TRANSFUSION IN THE PAST WITHOUT ANY REACTIONS, RISK AND BENEFITS EXPLAINED TO PT, AGREE W/POC VERBALIZE UNDERSTANDING. Objective - Vital Signs/Intake and Output Vital Signs (last 24 hours): Temp Pulse Resp BP Pulse Ox 98 F 81 20 111/63 95 11/22/16 08:43 11/22/16 08:43 11/22/16 08:43 11/22/16 08:43 11/22/16 08:43 Intake and Output: 11/22/16 11/22/16 06:59 18:59 Intake Total 3260 Balance 3260 - Medications Medications: Current Medications Benzocaine/Menthol (Cepacol Sore Throat) 1 chuck MT BID PRN PRN Reason: Sore Throat Diphenhydramine HCl (Benadryl) 25 mg IVP Q3H PRN PRN Reason: Itching / Pruritus Last Admin: 11/22/16 10:08 Dose: 25 mg Fluticasone Propionate (Flonase) 1 spr ROBE DAILY [facility] Last Admin: 11/22/16 09:53 Dose: 1 spray Folic Acid (Folic Acid) 1 mg PO DAILY [facility] Last Admin: 11/22/16 09:53 Dose: 1 mg Guaifenesin/Dextromethorphan (Robitussin Dm) 10 ml PO Q4H PRN PRN Reason: Cough and congestion Last Admin: 11/22/16 10:08 Dose: 10 ml Hydromorphone HCl (Dilaudid) 2 mg IVP Q3H PRN PRN Reason: Pain, severe (8-10) Last Admin: 11/22/16 10:09 Dose: 2 mg Hydromorphone HCl (Dilaudid) 2 mg IVP STAT STA Stop: 11/22/16 11:36 Hydroxyurea (Hydrea) 500 mg PO TID [facility] Last Admin: 11/22/16 09:53 Dose: 500 mg Sodium Chloride (Sodium Chloride 0.9%) 1,000 mls @ 150 mls/hr IV .Q6H40M [facility] Last Admin: 11/22/16 10:11 Dose: 150 mls/hr Ibuprofen (Motrin Tab) 600 mg PO TID [facility] Last Admin: 11/22/16 10:10 Dose: Not Given Pantoprazole Sodium (Protonix Ec Tab) 20 mg PO DAILY [facility] Last Admin: 11/22/16 09:53 Dose: 20 mg - Labs Labs: 11/22/16 06:54 11/22/16 06:54
[2016-11-22] MEDS ORDERED: DiphenhydrAMINE 50 mg/ml Inj IVP STA (11:51)
--- NOTE | 2016-11-22 12:30 | CP.PCM.PN ---
Subjective - Date & Time of Evaluation Date of Evaluation: 11/22/16 Time of Evaluation: 08:20 - Subjective Subjective: clinically same Objective - Vital Signs/Intake and Output Vital Signs (last 24 hours): Temp Pulse Resp BP Pulse Ox 98 F 81 20 111/63 95 11/22/16 08:43 11/22/16 08:43 11/22/16 08:43 11/22/16 08:43 11/22/16 08:43 Intake and Output: 11/22/16 11/22/16 06:59 18:59 Intake Total 3260 0 Balance 3260 0 - Medications Medications: Current Medications Benzocaine/Menthol (Cepacol Sore Throat) 1 chuck [place] BID PRN PRN Reason: Sore Throat Diphenhydramine HCl (Benadryl) 25 mg IVP Q3H PRN PRN Reason: Itching / Pruritus Last Admin: 11/22/16 10:08 Dose: 25 mg Fluticasone Propionate (Flonase) 1 spr ROBE DAILY [facility] Last Admin: 11/22/16 09:53 Dose: 1 spray Folic Acid (Folic Acid) 1 mg PO DAILY [facility] Last Admin: 11/22/16 09:53 Dose: 1 mg Guaifenesin/Dextromethorphan (Robitussin Dm) 10 ml PO Q4H PRN PRN Reason: Cough and congestion Last Admin: 11/22/16 10:08 Dose: 10 ml Hydromorphone HCl (Dilaudid) 2 mg IVP Q3H PRN PRN Reason: Pain, severe (8-10) Last Admin: 11/22/16 10:09 Dose: 2 mg Hydroxyurea (Hydrea) 500 mg PO TID [facility] Last Admin: 11/22/16 09:53 Dose: 500 mg Sodium Chloride (Sodium Chloride 0.9%) 1,000 mls @ 150 mls/hr IV .Q6H40M [facility] Last Admin: 11/22/16 10:11 Dose: 150 mls/hr Ibuprofen (Motrin Tab) 600 mg PO TID [facility] Last Admin: 11/22/16 10:10 Dose: Not Given Pantoprazole Sodium (Protonix Ec Tab) 20 mg PO DAILY [facility] Last Admin: 11/22/16 09:53 Dose: 20 mg - Labs Labs: 11/22/16 06:54 11/22/16 06:54 - Constitutional Appears: Well - Head Exam Head Exam: ATRAUMATIC, NORMAL INSPECTION, NORMOCEPHALIC - Eye Exam Eye Exam: EOMI, Normal appearance, PERRL Pupil Exam: NORMAL ACCOMODATION, PERRL - ENT Exam ENT Exam: Mucous Membranes Moist, Normal Exam - Neck Exam Neck Exam: Full ROM, Normal Inspection. absent: Lymphadenopathy - Respiratory Exam Respiratory Exam: Decreased Breath Sounds - Cardiovascular Exam Cardiovascular Exam: REGULAR RHYTHM, +S1, +S2 - GI/Abdominal Exam GI & Abdominal Exam: Soft, Diminished Bowel Sounds - Rectal Exam Rectal Exam: Deferred
[2016-11-22] MEDS ORDERED: Sodium Chloride 0.9% 1,000 ML IV ONE (16:17)
[2016-11-22 19:41] LABS: BASO # 0.1 K/uL (0.0-0.2); BASO % 0.7 % (0.0-2.0); EOS # 0.4 K/uL (0.0-0.7); EOS % 2.2 % (0.0-4.0); HEMATOCRIT 23.2 % (34.0-47.0); LYMPH # 5.4 K/uL (1.0-4.3); LYMPH % 33.7 % (20.0-40.0); MEAN CORPUSCULAR HEMOGLOBIN 31.7 pg (27.0-31.0); MEAN CORPUSCULAR HGB CONC 33.2 g/dL (33.0-37.0); MEAN PLATELET VOLUME 8.6 fL (7.2-11.7); MONO # 1.3 K/uL (0.0-0.8); MONO % 7.9 % (0.0-10.0); NRBC % 1.2 % (0.0-2.0); RED CELL DISTRIBUTION WIDTH 23.2 % (11.5-14.5); WHITE BLOOD COUNT 16.1 K/uL (4.8-10.8)
[2016-11-22 19:43] LABS: MEAN CELL VOLUME 95.7 fL (81.0-99.0)
--- NOTE | 2016-11-22 20:08 | CP.PCM.PN ---
Subjective - Date & Time of Evaluation Date of Evaluation: 11/22/16 Time of Evaluation: 17:00 - Subjective Subjective: Feeling better s/p PRBC transfusion Objective - Vital Signs/Intake and Output Vital Signs (last 24 hours): Temp Pulse Resp BP Pulse Ox 98.5 F 70 20 144/81 95 11/22/16 15:28 11/22/16 15:28 11/22/16 15:28 11/22/16 15:28 11/22/16 15:28 Intake and Output: 11/22/16 11/23/16 18:59 06:59 Intake Total 1930 Balance 1930 - Medications Medications: Current Medications Benzocaine/Menthol (Cepacol Sore Throat) 1 chuck MT BID PRN PRN Reason: Sore Throat Diphenhydramine HCl (Benadryl) 25 mg IVP Q3H PRN PRN Reason: Itching / Pruritus Last Admin: 11/22/16 18:01 Dose: 25 mg Fluticasone Propionate (Flonase) 1 spr ROBE DAILY [facility] Last Admin: 11/22/16 09:53 Dose: 1 spray Folic Acid (Folic Acid) 1 mg PO DAILY [facility] Last Admin: 11/22/16 09:53 Dose: 1 mg Guaifenesin/Dextromethorphan (Robitussin Dm) 10 ml PO Q4H PRN PRN Reason: Cough and congestion Last Admin: 11/22/16 10:08 Dose: 10 ml Hydromorphone HCl (Dilaudid) 2 mg IVP Q3H PRN PRN Reason: Pain, severe (8-10) Last Admin: 11/22/16 18:01 Dose: 2 mg Hydroxyurea (Hydrea) 500 mg PO TID [facility] Last Admin: 11/22/16 18:01 Dose: 500 mg Sodium Chloride (Sodium Chloride 0.9%) 1,000 mls @ 100 mls/hr IV .Q10H ONE Stop: 11/23/16 02:16 Last Admin: 11/22/16 16:48 Dose: 100 mls/hr Ibuprofen (Motrin Tab) 600 mg PO TID [facility] Last Admin: 11/22/16 18:07 Dose: Not Given Pantoprazole Sodium (Protonix Ec Tab) 20 mg PO DAILY [facility] Last Admin: 11/22/16 09:53 Dose: 20 mg - Labs Labs: 11/22/16 19:37 11/22/16 06:54 - Head Exam Head Exam: ATRAUMATIC - Eye Exam Eye Exam: Normal appearance - ENT Exam ENT Exam: Mucous Membranes Dry - Respiratory Exam Respiratory Exam: NORMAL BREATHING PATTERN - Cardiovascular Exam Cardiovascular Exam: +S1, +S2 - GI/Abdominal Exam GI & Abdominal Exam: Normal Bowel Sounds - Extremities Exam Extremities Exam: Normal Inspection Assessment and Plan (1) Sickle cell pain crisis Assessment & Plan: IV fluids, pain meds, 02 via NC, folic acid s/p prbc transfusion Status: Acute (2) Leukocytosis Assessment & Plan: likely reactive to sickle cell Status: Acute (3) Sickle cell anemia Assessment & Plan: folic acid and hydrea Status: Chronic
[2016-11-23] MEDS: guaiFENesin DM 200 mg-20 mg/10 ml UD PO PRN ×2 (00:03→06:19)
[2016-11-23] MEDS: DiphenhydrAMINE 50 mg/ml Inj IVP PRN ×8 (00:03→21:57)
[2016-11-23 07:30] LABS: BASO # 0.1 K/uL (0.0-0.2); BASO % 0.5 % (0.0-2.0); EOS # 0.3 K/uL (0.0-0.7); EOS % 2.2 % (0.0-4.0); HEMATOCRIT 23.2 % (34.0-47.0); LYMPH # 6.4 K/uL (1.0-4.3); LYMPH % 41.1 % (20.0-40.0); MEAN CELL VOLUME 97.1 fL (81.0-99.0); MEAN CORPUSCULAR HEMOGLOBIN 32.8 pg (27.0-31.0); MEAN CORPUSCULAR HGB CONC 33.8 g/dL (33.0-37.0); MEAN PLATELET VOLUME 8.8 fL (7.2-11.7); MONO # 1.1 K/uL (0.0-0.8); MONO % 6.9 % (0.0-10.0); NRBC % 1.7 % (0.0-2.0); RED CELL DISTRIBUTION WIDTH 23.1 % (11.5-14.5); WHITE BLOOD COUNT 15.5 K/uL (4.8-10.8)
[2016-11-23 07:32] LABS: CHLORIDE 104 mmol/L (98-107); SODIUM 139 mmol/L (132-148)
[2016-11-23 07:33] LABS: POTASSIUM 3.6 mmol/L (3.6-5.2)
[2016-11-23 07:35] LABS: ALB/GLOB RATIO 1.3 (1.0-2.1); ALKALINE PHOSPHATASE 141 U/L (38-126); AST/SGOT 84 U/L (14-36); BILIRUBIN,TOTAL 2.5 mg/dL (0.2-1.3); BLOOD UREA NITROGEN 7 mg/dL (7-17); CALCIUM 8.4 mg/dl (8.6-10.4); CARBON DIOXIDE 26 mmol/L (22-30); GFR AFRICAN-AMERICAN > 60; GLUCOSE,RANDOM 77 mg/dL (65-105); TOTAL PROTEIN 6.2 g/dL (6.3-8.3)
[2016-11-23 07:36] LABS: ALT/SGPT 109 U/L (9-52)
[2016-11-23] MEDS: Pantoprazole 20 mg EC Tab PO SCH (09:37)
[2016-11-23] MEDS: Fluticasone Nasal 50 mcg/Spray NAS SCH (09:39)
--- NOTE | 2016-11-23 15:20 | CP.PCM.PN ---
Subjective - Date & Time of Evaluation Date of Evaluation: 11/23/16 Time of Evaluation: 11:30 - Subjective Subjective: clinically same Objective - Vital Signs/Intake and Output Vital Signs (last 24 hours): Temp Pulse Resp BP Pulse Ox 98.5 F 65 20 112/64 93 L 11/23/16 08:26 11/23/16 08:26 11/23/16 08:26 11/23/16 08:26 11/23/16 08:26 Intake and Output: 11/23/16 11/23/16 06:59 18:59 Intake Total 2610 Balance 2610 - Medications Medications: Current Medications Benzocaine/Menthol (Cepacol Sore Throat) 1 chuck MT BID PRN PRN Reason: Sore Throat Diphenhydramine HCl (Benadryl) 25 mg IVP Q3H PRN PRN Reason: Itching / Pruritus Last Admin: 11/23/16 12:41 Dose: 25 mg Fluticasone Propionate (Flonase) 1 spr ROBE DAILY [facility] Last Admin: 11/23/16 09:39 Dose: 1 spray Folic Acid (Folic Acid) 1 mg PO DAILY [facility] Last Admin: 11/23/16 09:38 Dose: 1 mg Guaifenesin/Dextromethorphan (Robitussin Dm) 10 ml PO Q4H PRN PRN Reason: Cough and congestion Last Admin: 11/23/16 06:19 Dose: 10 ml Hydromorphone HCl (Dilaudid) 2 mg IVP Q3H PRN PRN Reason: Pain, severe (8-10) Last Admin: 11/23/16 12:42 Dose: 2 mg Hydroxyurea (Hydrea) 500 mg PO TID [facility] Last Admin: 11/23/16 09:38 Dose: 500 mg Ibuprofen (Motrin Tab) 600 mg PO TID [facility] Last Admin: 11/23/16 09:42 Dose: Not Given Pantoprazole Sodium (Protonix Ec Tab) 20 mg PO DAILY [facility] Last Admin: 11/23/16 09:37 Dose: 20 mg - Labs Labs: 11/23/16 06:10 11/23/16 06:10 Assessment and Plan - Assessment and Plan (Free Text) Plan: DR. Bandar wyman. Dilaudid luís. Flonase luís. Hydrea protonix
[2016-11-24] MEDS: DiphenhydrAMINE 50 mg/ml Inj IVP PRN ×6 (00:57→16:39)
[2016-11-24 08:04] VITALS: O2SAT 98
--- NOTE | 2016-11-24 09:23 | SPECPROC ---
PROCEDURE: Date of procedure: 11/21/2016 Procedure: 1. Placement of a right arm PICC with ultrasound and fluoroscopic guidance, CPT 41044 2. PICC tip confirmation with spot radiograph and is in the superior vena cava Medications: 3cc 1 percent lidocaine HISTORY: Bacteremia requiring long-term IV antibiotics TECHNIQUE: Following informed consent and procedure time-out, the patient was placed supine on the interventional table and the right arm prepped and draped in the usual sterile fashion. Ultrasound showed a patent and compressible right basilic vein. After the skin was anesthetized with lidocaine, the basilic vein was accessed with micro micropuncture technique using ultrasound guidance. A guidewire was then advanced under fluoroscopic guidance into the superior vena cava. An image documenting ultrasound guidance for vascular access was permanently saved. The length of the single-lumen 5 [place] PICC was trimmed to 35 centimeters and advanced through a peel-away sheath. The PICC was position with tip of PICC confirm a spot radiograph the superior vena cava. The PICC was secured to the patient's skin. The PICC was flushed. A biopatch and sterile dressing was applied. IMPRESSION: Placement of a single-lumen 5 [place] PICC trimmed to 35 centimeters via right basilic vein. The tip of the PICC is confirmed with spot radiograph and is in the superior vena cava.
[2016-11-24] MEDS: Fluticasone Nasal 50 mcg/Spray NAS SCH (10:17)
[2016-11-24] MEDS: Pantoprazole 20 mg EC Tab PO SCH (12:25)
[2016-11-24] MEDS ORDERED: HYDROmorphone 1 mg/ml ISec IVP STA (16:29)
--- NOTE | 2016-11-24 16:51 | CP.PCM.PN ---
Subjective - Date & Time of Evaluation Date of Evaluation: 11/24/16 Time of Evaluation: 08:20 - Subjective Subjective: clinically same Objective - Vital Signs/Intake and Output Vital Signs (last 24 hours): Temp Pulse Resp BP Pulse Ox 97.8 F 66 20 132/60 98 11/24/16 08:00 11/24/16 08:00 11/24/16 08:00 11/24/16 08:00 11/24/16 08:00 Intake and Output: 11/24/16 11/24/16 06:59 18:59 Intake Total 1160 Balance 1160 - Medications Medications: Current Medications Benzocaine/Menthol (Cepacol Sore Throat) 1 chuck MT BID PRN PRN Reason: Sore Throat Diphenhydramine HCl (Benadryl) 25 mg IVP Q3H PRN PRN Reason: Itching / Pruritus Last Admin: 11/24/16 16:39 Dose: 25 mg Fluticasone Propionate (Flonase) 1 spr ROBE DAILY [facility] Last Admin: 11/24/16 10:17 Dose: 1 spray Folic Acid (Folic Acid) 1 mg PO DAILY [facility] Last Admin: 11/24/16 10:11 Dose: 1 mg Guaifenesin/Dextromethorphan (Robitussin Dm) 10 ml PO Q4H PRN PRN Reason: Cough and congestion Last Admin: 11/23/16 06:19 Dose: 10 ml Hydroxyurea (Hydrea) 500 mg PO TID [facility] Last Admin: 11/24/16 10:17 Dose: 500 mg Ibuprofen (Motrin Tab) 600 mg PO TID [facility] Last Admin: 11/24/16 10:12 Dose: 600 mg Pantoprazole Sodium (Protonix Ec Tab) 20 mg PO DAILY [facility] Last Admin: 11/24/16 12:25 Dose: 20 mg - Labs Labs: 11/23/16 06:10 11/23/16 06:10 - Constitutional Appears: Well - Head Exam Head Exam: ATRAUMATIC, NORMAL INSPECTION, NORMOCEPHALIC - Eye Exam Eye Exam: EOMI, Normal appearance, PERRL Pupil Exam: NORMAL ACCOMODATION, PERRL - ENT Exam ENT Exam: Mucous Membranes Moist, Normal Exam - Neck Exam Neck Exam: Full ROM, Normal Inspection. absent: Lymphadenopathy - Respiratory Exam Respiratory Exam: Decreased Breath Sounds - Cardiovascular Exam Cardiovascular Exam: REGULAR RHYTHM, +S1, +S2 - GI/Abdominal Exam GI & Abdominal Exam: Soft, Diminished Bowel Sounds - Rectal Exam Rectal Exam: Deferred
[2016-11-24 17:10] VITALS: BP 144/85; PULSE 62; TEMP 98.2
--- NOTE | 2016-11-24 18:59 | CP.PCM.PN ---
Subjective - Date & Time of Evaluation Date of Evaluation: 11/24/16 Time of Evaluation: 14:00 - Subjective Subjective: Patient is seen in room. She is complaining of mild pain and asking for pain medication. She also denies fever, chills, nausea, vomiting, diarrhea, chest pain, or palpitations. Objective - Vital Signs/Intake and Output Vital Signs (last 24 hours): Temp Pulse Resp BP Pulse Ox 98.2 F 62 20 144/85 98 11/24/16 16:00 11/24/16 16:00 11/24/16 16:00 11/24/16 16:00 11/24/16 16:00 Intake and Output: 11/24/16 11/24/16 06:59 18:59 Intake Total 1160 300 Balance 1160 300 - Labs Labs: 11/23/16 06:10 11/23/16 06:10 - Constitutional Appears: Non-toxic, No Acute Distress - Head Exam Head Exam: NORMAL INSPECTION - Eye Exam Eye Exam: Normal appearance Pupil Exam: NORMAL ACCOMODATION - Respiratory Exam Respiratory Exam: Clear to Ausculation Bilateral. absent: Rales, Rhonchi, Wheezes - Cardiovascular Exam Cardiovascular Exam: REGULAR RHYTHM, RRR, +S1, +S2. absent: Gallop, Rubs - GI/Abdominal Exam GI & Abdominal Exam: Soft, Normal Bowel Sounds. absent: Tenderness - Extremities Exam Extremities Exam: Normal Inspection. absent: Pedal Edema - Psychiatric Exam Psychiatric exam: Normal Affect, Normal Mood - Skin Skin Exam: Normal Color Assessment and Plan (1) Sickle cell crisis Assessment & Plan: Patient discharged home per Dr. Mike Louis. She is to follow up in his office after discharge. She will also need referal for a heme/onc physician as well. Status: Acute (2) Anemia Status: Acute (3) Leukocytosis Status: Acute (4) Transaminitis Status: Chronic (5) Prophylactic measure Status: Acute
== END 2016-11-24 17:39 | disposition home or self-care (01) | DRG 574 ==
LOC: C.ER 00:49 → C.3T 05:29
PROVIDERS: ADMIT Internal Medicine Nephrology; ATTEND Internal Medicine Nephrology
PROC: 02HV33Z Insertion of Infusion Device into Superior Vena Cava, Percutaneous Approach (ICD-10-PCS; principal; 2016-11-21)
DX: D57.00 Hb-SS disease with crisis, unspecified (principal); R78.81 Bacteremia; J02.9 Acute pharyngitis, unspecified; R74.0 Nonspecific elevation of levels of transaminase and lactic acid dehydrogenase [LDH]; Z87.01 Personal history of pneumonia (recurrent); Z87.891 Personal history of nicotine dependence

== ENCOUNTER 2016-11-25 15:42 | Emergency (ER) | payer MEDICAID ==
[2016-11-25 15:43] VITALS: BMI 24.5
[2016-11-25 15:48] VITALS: BP 124/74; PULSE 109; RESP 20; TEMP 98.2; O2SAT 98
[2016-11-25] MEDS ORDERED: DiphenhydrAMINE 12.5 mg/5 ml LIQ UD (5 ml) PO STA (16:39)
--- NOTE | 2016-11-25 16:49 | C.PDOC ---
History Of Present Illness 31 y/o female pmhx sickle cell disease presents to the ED with complaints of generalized body aches. Pt with frequent visits to ED for same. Denies SOB, chest pain, fever or any other complaints. Time Seen by Provider: 11/25/16 16:30 Chief Complaint (Nursing): Pain, Chronic History Per: Patient History/Exam Limitations: no limitations Onset/Duration Of Symptoms: Days, Intermittent Episodes Current Symptoms Are (Timing): Still Present Severity: Moderate Reports Recently: Seen In ED Recent travel outside of the [place]: No Past Medical History Reviewed: Historical Data, Nursing Documentation, Vital Signs Vital Signs: Last Vital Signs Temp 98.2 F 11/25/16 15:46 Pulse 109 H 11/25/16 15:46 Resp 20 11/25/16 15:46 BP 124/74 11/25/16 15:46 Pulse Ox 98 11/25/16 16:48 - Medical History PMH: Anemia, Bronchitis, Gall Bladder Disease, Pneumonia, Sickle Cell Disease Surgical History: Cholecystectomy - [facility] Procedures INFLUENZA VACCINATION (03/16/12) INJECT/INFUSE ELECTROLYT (09/07/13) INJECT/INFUSE NEC (01/25/14) INSERTION OF INFUSION DEV INTO SUP VENA CAVA, PERC APPROACH (11/19/16) NEBULIZER THERAPY (12/02/13) PACKED CELL TRANSFUSION (02/12/15) REMOVAL OF VAD FROM TRUNK SUBCU/FASCIA, OPEN APPROACH (04/15/16) TRANSFUSE NONAUT RED BLOOD CELLS IN PERIPH VEIN, PERC (04/15/16) VACCINATION NEC (08/22/13) Family History: States: Unknown Family Hx - Social History Hx Tobacco Use: No Hx Alcohol Use: No Hx Substance Use: Yes (marijuana occasionally) - Immunization History Hx Tetanus Toxoid Vaccination: Yes Hx Influenza Vaccination: Yes (2015) Hx Pneumococcal Vaccination: Yes (2014) Review Of Systems Except As Marked, All Systems Reviewed And Found Negative. Constitutional: Positive for: Other (generalized body aches). Negative for: Fever Cardiovascular: Negative for: Chest Pain Respiratory: Negative for: Shortness of Breath Physical Exam - Physical Exam Appears: Non-toxic, No Acute Distress Skin: Warm, Dry, No Rash Head: Atraumatic, Normacephalic Neck: Normal, Normal ROM, Supple Chest: Symmetrical Cardiovascular: Rhythm Regular, No Murmur Respiratory: Normal Breath Sounds, No Rales, No Rhonchi, No Wheezing Gastrointestinal/Abdominal: Normal Exam, Soft, No Tenderness Extremity: Normal ROM, No Tenderness Extremity: Bilateral: Atraumatic Neurological/Psych: Oriented x3, Normal Speech ED Course And Treatment O2 Sat by Pulse Oximetry: 98 (room air) Pulse Ox Interpretation: Normal Medical Decision Making Medical Decision Making: PO protocol followed Wright better post second dose Disposition - Disposition Disposition: HOME/ ROUTINE Disposition Time: 19:00 Condition: GOOD Forms: General Discharge Instructions - Clinical Impression Clinical Impression: Chronic pain - Scribe Statement The provider has reviewed the documentation as recorded by the Rosa Kidd Provider Attestation: All medical record entries made by the Rosa were at my direction and personally dictated by me. I have reviewed the chart and agree that the record accurately reflects my personal performance of the history, physical exam, medical decision making, and the department course for this patient. I have also personally directed, reviewed, and agree with the discharge instructions and disposition.
== END 2016-11-25 18:52 | disposition home or self-care (01) ==
LOC: C.ER 15:42
DX: G89.29 Other chronic pain (principal); D57.1 Sickle-cell disease without crisis

== ENCOUNTER 2016-11-26 09:26 | Emergency (ER) | payer MEDICAID ==
[2016-11-26 09:26] VITALS: BMI 24.5
[2016-11-26 09:42] VITALS: TEMP 98.7
--- NOTE | 2016-11-26 10:25 | C.PDOC ---
History Of Present Illness 31-year-old female with PMHx of Sickle cell anemia presents to the emergency department with complaints of diffuse body aches - symptoms consistent with prior sickle cell pain. She denies fever, cough, abdominal pain, nausea/ vomiting, SOB, chest pain. Time Seen by Provider: 11/26/16 09:56 Chief Complaint (Nursing): Chest Pain History Per: Patient History/Exam Limitations: no limitations Current Symptoms Are (Timing): Still Present Severity: Mild Quality: "Pain" Associated Symptoms: denies: Nausea, Dyspnea, Diaphoresis Past Medical History Reviewed: Historical Data, Nursing Documentation, Vital Signs Vital Signs: Last Vital Signs Temp 98.7 F 11/26/16 12:57 Pulse 92 H 11/26/16 12:57 Resp 18 11/26/16 12:57 BP 137/85 11/26/16 12:57 Pulse Ox 95 11/26/16 13:20 - Medical History PMH: Anemia, Bronchitis, Gall Bladder Disease, Pneumonia, Sickle Cell Disease Surgical History: Cholecystectomy - [facility] Procedures INFLUENZA VACCINATION (03/16/12) INJECT/INFUSE ELECTROLYT (09/07/13) INJECT/INFUSE NEC (01/25/14) INSERTION OF INFUSION DEV INTO SUP VENA CAVA, PERC APPROACH (11/19/16) NEBULIZER THERAPY (12/02/13) PACKED CELL TRANSFUSION (02/12/15) REMOVAL OF VAD FROM TRUNK SUBCU/FASCIA, OPEN APPROACH (04/15/16) TRANSFUSE NONAUT RED BLOOD CELLS IN PERIPH VEIN, PERC (04/15/16) VACCINATION NEC (08/22/13) Family History: States: No Known Family Hx - Social History Hx Tobacco Use: No Hx Alcohol Use: No Hx Substance Use: Yes (marijuana occasionally) - Immunization History Hx Tetanus Toxoid Vaccination: Yes Hx Influenza Vaccination: Yes (2015) Hx Pneumococcal Vaccination: Yes (2014) Review Of Systems Except As Marked, All Systems Reviewed And Found Negative. Constitutional: Positive for: Malaise, Other (body aches). Negative for: Fever , Chills Cardiovascular: Negative for: Chest Pain, Palpitations Respiratory: Negative for: Cough, Shortness of Breath, Wheezing Gastrointestinal: Negative for: Vomiting Skin: Negative for: Rash Physical Exam - Physical Exam Appears: Well, Non-toxic, No Acute Distress Skin: Warm, Dry Head: Normacephalic Oral Mucosa: Moist Cardiovascular: Rhythm Regular Respiratory: Normal Breath Sounds, No Rales, No Rhonchi, No Wheezing Gastrointestinal/Abdominal: Normal Exam, Bowel Sounds, Soft, No Tenderness Back: Normal Inspection Extremity: Normal ROM Neurological/Psych: Oriented x3 ED Course And Treatment - Laboratory Results Result Diagrams: 11/26/16 11:08 11/26/16 11:08 O2 Sat by Pulse Oximetry: 95 (RA) Pulse Ox Interpretation: Normal Progress Note: Blood work, UPreg ordered and reviewed. Patient given PO Dilaudid + Benadryl x 2 as per ED sickle cell protocol. Reevaluation Time: 13:25 Reassessment Condition: Improved (On reassessment, patient states she is feeling better, pain has resolved. She is well appearing, with normal vitals, and comfortable being discharged home. Patient instructed to follow up with PMD in1 -2 days, and understands she should return to ED if symptoms worsen.) Disposition Counseled Patient/Family Regarding: Studies Performed, Diagnosis, Need For Followup - Disposition Referrals: Enzo Louis MD [Staff Provider] - Disposition: HOME/ ROUTINE Disposition Time: 13:20 Condition: STABLE Instructions: Sickle Cell Anemia (DC) Print Language: WOLOF - POA Present On Arrival: None - Clinical Impression Clinical Impression: Sickle cell anemia - Scribe Statement The provider has reviewed the documentation as recorded by the Rosa Hamlin Provider Attestation: All medical record entries made by the Rosa were at my direction and personally dictated by me. I have reviewed the chart and agree that the record accurately reflects my personal performance of the history, physical exam, medical decision making, and the department course for this patient. I have also personally directed, reviewed, and agree with the discharge instructions and disposition.
[2016-11-26 11:18] LABS: BASO # 0.1 K/uL (0.0-0.2); BASO % 0.8 % (0.0-2.0); EOS # 0.2 K/uL (0.0-0.7); EOS % 1.6 % (0.0-4.0); HEMATOCRIT 28.7 % (34.0-47.0); LYMPH # 3.7 K/uL (1.0-4.3); LYMPH % 28.9 % (20.0-40.0); MEAN CORPUSCULAR HEMOGLOBIN 34.2 pg (27.0-31.0); MEAN CORPUSCULAR HGB CONC 34.2 g/dL (33.0-37.0); MEAN PLATELET VOLUME 7.9 fL (7.2-11.7); MONO # 1.2 K/uL (0.0-0.8); MONO % 9.4 % (0.0-10.0); RED CELL DISTRIBUTION WIDTH 30.3 % (11.5-14.5); WHITE BLOOD COUNT 12.9 K/uL (4.8-10.8)
[2016-11-26 11:26] LABS: RBC URINE 2 /hpf (0-3); URINE BACTERIA RARE (<OCC); URINE BILIRUBIN NEGATIVE (NEGATIVE); URINE BLOOD NEGATIVE (NEGATIVE); URINE COLOR Amber (YELLOW); URINE GLUCOSE (UA) NORMAL (Normal); URINE KETONE NEGATIVE (NEGATIVE); URINE LEUKOCYTE ESTERASE NEG Leu/uL (Negative); URINE PROTEIN 2+ mg/dL (NEGATIVE); URINE UROBILINOGEN NORMAL mg/dL (0.2-1.0); WBC URINE 5 /hpf (0-5)
[2016-11-26 11:34] LABS: CHLORIDE 101 mmol/L (98-107); POTASSIUM 3.7 mmol/L (3.6-5.2); SODIUM 138 mmol/L (132-148)
[2016-11-26 11:36] LABS: AST/SGOT 71 U/L (14-36); BILIRUBIN,TOTAL 3.1 mg/dL (0.2-1.3); CARBON DIOXIDE 26 mmol/L (22-30); GFR AFRICAN-AMERICAN > 60
[2016-11-26 11:37] LABS: ALB/GLOB RATIO 1.5 (1.0-2.1); ALKALINE PHOSPHATASE 174 U/L (38-126); ALT/SGPT 99 U/L (9-52); BLOOD UREA NITROGEN 12 mg/dL (7-17); GLUCOSE,RANDOM 96 mg/dL (65-105); TOTAL PROTEIN 7.7 g/dL (6.3-8.3)
[2016-11-26 12:58] VITALS: BP 137/85; PULSE 92; RESP 18
[2016-11-26 13:20] VITALS: O2SAT 95
--- NOTE | 2016-12-01 20:55 | CARD ---
APPROVED REPORT EKG Measurement Heart [id number] <Conclusion> Normal sinus rhythm Normal ECG
== END 2016-11-26 13:45 | disposition home or self-care (01) ==
LOC: C.ER 09:26
DX: D57.1 Sickle-cell disease without crisis (principal)

== ENCOUNTER 2016-11-30 10:45 | Emergency (ER) | payer MEDICAID ==
[2016-11-30 10:45] VITALS: BMI 24.5
[2016-11-30 10:49] VITALS: O2SAT 96
--- NOTE | 2016-11-30 13:04 | C.PDOC ---
History Of Present Illness 31-year-old female, PMHx includes Anemia and Sickle cell disease, presents to the emergency department with complaints of diffuse body aches. Patient states that symptoms are consistent with her prior sickle cell crisis episodes. She has been seen in ED for same complaint multiple times in the past. Patient denies any fevers, shortness of breath, nausea/vomiting, symptoms, or change in bowel habits. Time Seen by Provider: 11/30/16 11:11 Chief Complaint (Nursing): Chest Pain History Per: Patient History/Exam Limitations: no limitations Onset/Duration Of Symptoms: Days Current Symptoms Are (Timing): Still Present Severity: Moderate Past Medical History Reviewed: Historical Data, Nursing Documentation, Vital Signs Vital Signs: Last Vital Signs Temp 98.0 F 11/30/16 13:18 Pulse 78 11/30/16 13:18 Resp 17 11/30/16 13:18 BP 133/88 11/30/16 13:18 Pulse Ox 96 11/30/16 13:18 - Medical History PMH: Anemia, Bronchitis, Gall Bladder Disease, Pneumonia, Sickle Cell Disease Surgical History: Cholecystectomy - [facility] Procedures INFLUENZA VACCINATION (03/16/12) INJECT/INFUSE ELECTROLYT (09/07/13) INJECT/INFUSE NEC (01/25/14) INSERTION OF INFUSION DEV INTO SUP VENA CAVA, PERC APPROACH (11/19/16) NEBULIZER THERAPY (12/02/13) PACKED CELL TRANSFUSION (02/12/15) REMOVAL OF VAD FROM TRUNK SUBCU/FASCIA, OPEN APPROACH (04/15/16) TRANSFUSE NONAUT RED BLOOD CELLS IN PERIPH VEIN, PERC (04/15/16) VACCINATION NEC (08/22/13) Family History: States: No Known Family Hx - Social History Hx Tobacco Use: No Hx Alcohol Use: No Hx Substance Use: Yes (marijuana occasionally) - Immunization History Hx Tetanus Toxoid Vaccination: Yes Hx Influenza Vaccination: Yes (2015) Hx Pneumococcal Vaccination: Yes (2014) Review Of Systems Except As Marked, All Systems Reviewed And Found Negative. Constitutional: Positive for: Malaise. Negative for: Fever Cardiovascular: Negative for: Chest Pain, Palpitations Respiratory: Negative for: Shortness of Breath Neurological: Negative for: Weakness, Numbness, Headache, Dizziness Physical Exam - Physical Exam Appears: Non-toxic, No Acute Distress Skin: Warm, Dry, No Rash Eye(s): bilateral: Normal Inspection Nose: Normal Oral Mucosa: Moist Lips: Normal Appearing Neck: Normal ROM Cardiovascular: Rhythm Regular Respiratory: Normal Breath Sounds, No Accessory Muscle Use Extremity: Normal ROM Neurological/Psych: Oriented x3, Normal Speech ED Course And Treatment O2 Sat by Pulse Oximetry: 96 Progress Note: Prior Visits. Notes and records from previous visits were reviewed. Patient seen in ED on 11/26 for same complaint and was treated with PO Dilaudid and Benadryl. Progress: Patient feels better after oral meds. States she feels comfortable going home. Patient appears well and comfortable. No SOB. Not tachypniec. Pulce OX WNL. She will be discharged with instructions to f/u outpatient with PMD for re-evaluation and treatment. Pt agreeable with plan. Disposition - Disposition Disposition: HOME/ ROUTINE Disposition Time: 13:36 Condition: GOOD Prescriptions: Benzonatate [Tessalon Perles] 1 sgl PO BID PRN #20 sgl PRN Reason: Cough Forms: General Discharge Instructions - Clinical Impression Clinical Impression: Chronic pain - Scribe Statement The provider has reviewed the documentation as recorded by the Scribe (Anika Shearer) All medical record entries made by the Scribe were at my direction and personally dictated by me. I have reviewed the chart and agree that the record accurately reflects my personal performance of the history, physical exam, medical decision making, and the department course for this patient. I have also personally directed, reviewed, and agree with the discharge instructions and disposition.
[2016-11-30 13:39] VITALS: BP 123/80; PULSE 76; RESP 16; TEMP 98
--- NOTE | 2016-12-02 07:56 | CARD ---
APPROVED REPORT EKG Measurement Heart [id number] <Conclusion> Normal sinus rhythm Normal ECG
== END 2016-11-30 13:38 | disposition home or self-care (01) ==
LOC: C.ER 10:45
DX: G89.29 Other chronic pain (principal); D57.1 Sickle-cell disease without crisis

== ENCOUNTER 2016-12-01 20:51 | Emergency (ER) | payer MEDICAID ==
[2016-12-01 20:51] VITALS: BMI 24.5
[2016-12-01 21:03] VITALS: BP 119/82; PULSE 118; RESP 22; TEMP 98.5; O2SAT 98
--- NOTE | 2016-12-02 00:32 | C.PDOC ---
History Of Present Illness Patient is a 31 year old female who presents to the ER with a complaint of generalized body aches. Patient has had multiple visits to the ER of complaints of vague pain. Denies fever or chills. Time Seen by Provider: 12/01/16 23:53 Chief Complaint (Nursing): Chest Pain History Per: Patient History/Exam Limitations: no limitations Onset/Duration Of Symptoms: Hrs Current Symptoms Are (Timing): Still Present Associated Symptoms: denies: Other (Fever, Chills.) Modifying Factors: None Exacerbating Factors: None Alleviating Factors: None Recent travel outside of the [place]: No Past Medical History Reviewed: Historical Data, Nursing Documentation, Vital Signs Vital Signs: Last Vital Signs Temp 98.5 F 12/01/16 21:00 Pulse 118 H 12/01/16 21:00 Resp 22 12/01/16 21:00 BP 119/82 12/01/16 21:00 Pulse Ox 98 12/02/16 00:38 - Medical History PMH: Anemia, Bronchitis, Gall Bladder Disease, Pneumonia, Sickle Cell Disease Surgical History: Cholecystectomy - [facility] Procedures INFLUENZA VACCINATION (03/16/12) INJECT/INFUSE ELECTROLYT (09/07/13) INJECT/INFUSE NEC (01/25/14) INSERTION OF INFUSION DEV INTO SUP VENA CAVA, PERC APPROACH (11/19/16) NEBULIZER THERAPY (12/02/13) PACKED CELL TRANSFUSION (02/12/15) REMOVAL OF VAD FROM TRUNK SUBCU/FASCIA, OPEN APPROACH (04/15/16) TRANSFUSE NONAUT RED BLOOD CELLS IN PERIPH VEIN, PERC (04/15/16) VACCINATION NEC (08/22/13) Family History: States: Unknown Family Hx - Social History Hx Tobacco Use: No Hx Alcohol Use: Yes Hx Substance Use: Yes (marijuana occasionally) - Immunization History Hx Tetanus Toxoid Vaccination: Yes Hx Influenza Vaccination: No (2015) Hx Pneumococcal Vaccination: Yes (2014) Review Of Systems Constitutional: Negative for: Fever, Chills Musculoskeletal: Positive for: Other (Body aches) Physical Exam - Physical Exam Appears: Non-toxic, No Acute Distress Skin: Normal Color, Warm, Dry Head: Atraumatic, Normacephalic Oral Mucosa: Moist Chest: Symmetrical, No Tenderness Cardiovascular: Rhythm Regular, No Murmur Respiratory: Normal Breath Sounds, No Rales, No Rhonchi, No Wheezing Gastrointestinal/Abdominal: Soft, No Tenderness Neurological/Psych: Oriented x3, Normal Speech, Normal Cognition Additional Physical Exam Comments: Physical exam done with nurse maya present. ED Course And Treatment O2 Sat by Pulse Oximetry: 98 (Room air) Pulse Ox Interpretation: Normal Progress Note: Upon learning that she would not receive any narcotic pain medication, patient immediatly eloped from the ER. Medical Decision Making Medical Decision Making: immediately eloped when declined narcotic pain meds [place] reviewed, multiple prescribers, pt with adequate pain meds @ home yet persistent ED visits (6th to our ED alone this month) and well known to the area ED's for frequent visits for same. Disposition - Disposition Referrals: Enzo Louis MD [Primary Care Provider] - Disposition: ELOPEMENT - ER ONLY Disposition Time: 00:05 Condition: GOOD - Clinical Impression Clinical Impression: Chronic pain, Drug-seeking behavior - Scribe Statement The provider has reviewed the documentation as recorded by the Scribvalarie Bills All medical record entries made by the Scribe were at my direction and personally dictated by me. I have reviewed the chart and agree that the record accurately reflects my personal performance of the history, physical exam, medical decision making, and the department course for this patient. I have also personally directed, reviewed, and agree with the discharge instructions and disposition.
--- NOTE | 2016-12-04 00:26 | CARD ---
APPROVED REPORT EKG Measurement Heart [id number] NM [id number] <Conclusion> Sinus tachycardia Possible Left atrial enlargement Nonspecific T wave abnormality Abnormal ECG
== END 2016-12-02 00:10 | disposition left against medical advice (07) ==
LOC: C.ER 20:51 → SUPCPDRO 20:51 → C.ER 12-02 00:10
DX: G89.29 Other chronic pain (principal); Z76.5 Malingerer [conscious simulation]; D57.1 Sickle-cell disease without crisis

== ENCOUNTER 2016-12-03 08:47 | Emergency (ER) | payer MEDICAID ==
[2016-12-03 08:48] VITALS: BMI 24.5
[2016-12-03 08:57] VITALS: BP 118/79; PULSE 86; RESP 17; TEMP 97.8; O2SAT 98
--- NOTE | 2016-12-03 10:15 | C.PDOC ---
History Of Present Illness 31 yr old female with PMHx of sickle cell disease, presents to the ER with chronic generalized body pains. Patient states she seen Dr. Ariel Louis who gave her Indomethacin which makes her vomits. Denies fever, chest pain, SOB, weakness or numbness. Time Seen by Provider: 12/03/16 09:55 Chief Complaint (Nursing): Pain, Chronic History Per: Patient History/Exam Limitations: no limitations Onset/Duration Of Symptoms: Days Past Medical History Reviewed: Historical Data, Nursing Documentation, Vital Signs Vital Signs: Last Vital Signs Temp 97.8 F 12/03/16 08:54 Pulse 86 12/03/16 08:54 Resp 17 12/03/16 08:54 BP 118/79 12/03/16 08:54 Pulse Ox 98 12/03/16 10:22 - Medical History PMH: Anemia, Bronchitis, Gall Bladder Disease, Pneumonia, Sickle Cell Disease Surgical History: Cholecystectomy - [facility] Procedures INFLUENZA VACCINATION (03/16/12) INJECT/INFUSE ELECTROLYT (09/07/13) INJECT/INFUSE NEC (01/25/14) INSERTION OF INFUSION DEV INTO SUP VENA CAVA, PERC APPROACH (11/19/16) NEBULIZER THERAPY (12/02/13) PACKED CELL TRANSFUSION (02/12/15) REMOVAL OF VAD FROM TRUNK SUBCU/FASCIA, OPEN APPROACH (04/15/16) TRANSFUSE NONAUT RED BLOOD CELLS IN PERIPH VEIN, PERC (04/15/16) VACCINATION NEC (08/22/13) Family History: States: No Known Family Hx - Social History Hx Tobacco Use: No Hx Alcohol Use: Yes Hx Substance Use: Yes (marijuana occasionally) - Immunization History Hx Tetanus Toxoid Vaccination: Yes Hx Influenza Vaccination: No (2015) Hx Pneumococcal Vaccination: Yes (2014) Review Of Systems Except As Marked, All Systems Reviewed And Found Negative. Constitutional: Negative for: Fever Cardiovascular: Negative for: Chest Pain Respiratory: Negative for: Shortness of Breath Neurological: Negative for: Weakness, Numbness Physical Exam - Physical Exam Appears: Non-toxic, No Acute Distress Skin: Warm, Dry, No Rash Head: Atraumatic, Normacephalic Oral Mucosa: Moist Chest: Symmetrical, No Tenderness Cardiovascular: Rhythm Regular, No Murmur Respiratory: Normal Breath Sounds, No Rales, No Rhonchi, No Wheezing Extremity: Normal ROM, No Swelling Neurological/Psych: Oriented x3, Normal Speech, Normal Motor ED Course And Treatment O2 Sat by Pulse Oximetry: 98 Medical Decision Making Medical Decision Making: PLAN: * Dilaudid PO * Reglan PO Disposition - Disposition Referrals: Enzo Louis MD [Staff Provider] - Disposition: HOME/ ROUTINE Disposition Time: 09:30 Condition: GOOD Additional Instructions: Thank you for letting us take care of you today. You were treated for chronic pain. The emergency medical care you received today was directed at your acute symptoms. If you were prescribed any medication, please fill it and take as directed. It may take several days for your symptoms to resolve. Return to the Emergency Department if your symptoms worsen, do not improve, or if you have any other problems. Please contact your doctor or call one of the physicians/clinics you have been referred to that are listed on the Patient Visit Information form that is included in your discharge packet. Bring any paperwork you were given at discharge with you along with any medications you are taking to your follow up visit. Our treatment cannot replace ongoing medical care by a primary care provider (PCP) outside of the emergency department. Thank you for allowing the [facility] team to be part of your care today. YOU MUST FOLLOW UP WITH PAIN MANAGEMENT OR YOUR PRIMARY DOCTOR FOR PAIN MANAGEMENT. Instructions: Chronic Pain (ED) - Clinical Impression Clinical Impression: Chronic pain - Scribe Statement The provider has reviewed the documentation as recorded by the Rosa Willoughby Provider Attestation: All medical record entries made by the Rosa were at my direction and personally dictated by me. I have reviewed the chart and agree that the record accurately reflects my personal performance of the history, physical exam, medical decision making, and the department course for this patient. I have also personally directed, reviewed, and agree with the discharge instructions and disposition.
== END 2016-12-03 10:10 | disposition home or self-care (01) ==
LOC: C.ER 08:47
DX: G89.29 Other chronic pain (principal); D57.1 Sickle-cell disease without crisis

== ENCOUNTER 2016-12-04 09:06 | Emergency (ER) | payer MEDICAID ==
[2016-12-04 09:06] VITALS: BMI 24.5
--- NOTE | 2016-12-04 11:20 | C.PDOC ---
History Of Present Illness 31 y/o female with Hx of Sickle cell disease presents to ED with complaints of generalized body pain, suprapubic pain and vaginal bleeding since last night. Pain is rated 10/10 and patient states using 4 pads for bleeding since last night. LMP 11/19/2016. Patient reports dysuria but denies fever, n/v/d or any other complaints at this time. Time Seen by Provider: 12/04/16 10:50 Chief Complaint (Nursing): Abdominal Pain History Per: Patient History/Exam Limitations: no limitations Onset/Duration Of Symptoms: Days Current Symptoms Are (Timing): Still Present Location Of Pain/Discomfort: Suprapubic Associated Symptoms: Urinary Symptoms. denies: Fever, Nausea, Vomiting, Diarrhea Past Medical History Reviewed: Historical Data, Nursing Documentation, Vital Signs Vital Signs: Last Vital Signs Temp 98.1 F 12/04/16 13:55 Pulse 83 12/04/16 13:55 Resp 18 12/04/16 13:55 BP 143/67 12/04/16 13:55 Pulse Ox 99 12/04/16 13:59 - Medical History PMH: Anemia, Bronchitis, Gall Bladder Disease, Pneumonia, Sickle Cell Disease Surgical History: Cholecystectomy - [facility] Procedures INFLUENZA VACCINATION (03/16/12) INJECT/INFUSE ELECTROLYT (09/07/13) INJECT/INFUSE NEC (01/25/14) INSERTION OF INFUSION DEV INTO SUP VENA CAVA, PERC APPROACH (11/19/16) NEBULIZER THERAPY (12/02/13) PACKED CELL TRANSFUSION (02/12/15) REMOVAL OF VAD FROM TRUNK SUBCU/FASCIA, OPEN APPROACH (04/15/16) TRANSFUSE NONAUT RED BLOOD CELLS IN PERIPH VEIN, PERC (04/15/16) VACCINATION NEC (08/22/13) Family History: States: Unknown Family Hx - Social History Hx Tobacco Use: No Hx Alcohol Use: Yes Hx Substance Use: Yes (marijuana occasionally) - Immunization History Hx Tetanus Toxoid Vaccination: Yes Hx Influenza Vaccination: No (2015) Hx Pneumococcal Vaccination: Yes (2014) Review Of Systems Except As Marked, All Systems Reviewed And Found Negative. Constitutional: Negative for: Fever, Chills Respiratory: Negative for: Shortness of Breath Gastrointestinal: Negative for: Nausea, Vomiting, Diarrhea Genitourinary: Positive for: Dysuria, Vaginal Bleeding Musculoskeletal: Positive for: Other (Generalized body pain) Skin: Negative for: Rash Physical Exam - Physical Exam Appears: Non-toxic, No Acute Distress Skin: Normal Color, Warm Head: Atraumatic, Normacephalic Cardiovascular: Rhythm Regular Respiratory: Normal Breath Sounds, No Rales, No Rhonchi, No Wheezing Gastrointestinal/Abdominal: Soft, No Tenderness, No Guarding, No Rebound Extremity: Tenderness (General Tenderness over body, Joints ), Capillary Refill (<2 seconds) Neurological/Psych: Oriented x3, Normal Speech, Normal Cognition ED Course And Treatment - Laboratory Results Result Diagrams: 12/04/16 11:53 12/04/16 11:53 O2 Sat by Pulse Oximetry: 99 (RA) Pulse Ox Interpretation: Normal Medical Decision Making Medical Decision Making: Impression: 1. Sickle Cell Crisis 2. Vaginal Bleeding Plan: Test Disposition - Disposition Referrals: Enzo Louis MD [Staff Provider] - Disposition: HOME/ ROUTINE Disposition Time: 13:57 Additional Instructions: Ms. Camarena, thank you for letting us take care of you today. Return to the ER if your symptoms worsen, or if any problems. Continue your regular home medications. Follow up with Dr. Louis in his office next week. Instructions: Dysfunctional Uterine Bleeding (ED), Sickle Cell Crisis (ED) Forms: General Discharge Instructions, [facility] (Swedish) Print Language: BANGLADESHI - POA Present On Arrival: None - Clinical Impression Clinical Impression: Sickle cell crisis, Dysfunctional uterine bleeding - Scribe Statement The provider has reviewed the documentation as recorded by the Rosa Rodriguez All medical record entries made by the Zacheryibvalarie were at my direction and personally dictated by me. I have reviewed the chart and agree that the record accurately reflects my personal performance of the history, physical exam, medical decision making, and the department course for this patient. I have also personally directed, reviewed, and agree with the discharge instructions and disposition.
[2016-12-04] MEDS ORDERED: Sodium Chloride 0.9% 1,000 ML IV ONE (11:23)
[2016-12-04] MEDS ORDERED: Sodium Chloride 0.9% 1,000 ML ONE (11:50)
[2016-12-04 12:07] LABS: BASO # 0.1 K/uL (0.0-0.2); BASO % 0.8 % (0.0-2.0); EOS # 0.1 K/uL (0.0-0.7); EOS % 0.7 % (0.0-4.0); HEMATOCRIT 28.3 % (34.0-47.0); LYMPH # 3.2 K/uL (1.0-4.3); MEAN CORPUSCULAR HEMOGLOBIN 32.4 pg (27.0-31.0); MEAN CORPUSCULAR HGB CONC 33.3 g/dL (33.0-37.0); MEAN PLATELET VOLUME 8.3 fL (7.2-11.7); MONO # 1.7 K/uL (0.0-0.8); MONO % 10.6 % (0.0-10.0); NRBC % 0.2 % (0.0-2.0); RED CELL DISTRIBUTION WIDTH 24.7 % (11.5-14.5); WHITE BLOOD COUNT 16.1 K/uL (4.8-10.8)
[2016-12-04 12:10] LABS: MEAN CELL VOLUME 97.4 fL (81.0-99.0)
[2016-12-04 12:13] LABS: CHLORIDE 104 mmol/L (98-107)
[2016-12-04 12:14] LABS: POTASSIUM 4.7 mmol/L (3.6-5.2); SODIUM 138 mmol/L (132-148)
[2016-12-04 12:16] LABS: AST/SGOT 88 U/L (14-36); BILIRUBIN,TOTAL 2.9 mg/dL (0.2-1.3); CARBON DIOXIDE 23 mmol/L (22-30); GFR AFRICAN-AMERICAN > 60
[2016-12-04 12:17] LABS: ALB/GLOB RATIO 1.2 (1.0-2.1); ALKALINE PHOSPHATASE 114 U/L (38-126); ALT/SGPT 72 U/L (9-52); BLOOD UREA NITROGEN 10 mg/dL (7-17); GLUCOSE,RANDOM 92 mg/dL (65-105); TOTAL PROTEIN 7.7 g/dL (6.3-8.3)
[2016-12-04 13:54] LABS: RBC URINE 4 /hpf (0-3); URINE BILIRUBIN NEGATIVE (NEGATIVE); URINE COLOR Yellow (YELLOW); URINE GLUCOSE (UA) NORMAL (Normal); URINE KETONE NEGATIVE (NEGATIVE); URINE LEUKOCYTE ESTERASE TRACE Leu/uL (Negative); URINE PROTEIN NEGATIVE (NEGATIVE); URINE UROBILINOGEN NORMAL mg/dL (0.2-1.0); WBC URINE 5 /hpf (0-5)
[2016-12-04 13:56] VITALS: BP 143/67; PULSE 83; RESP 18; TEMP 98.1
[2016-12-04 13:56] LABS: URINE BLOOD TRACE (NEGATIVE)
[2016-12-04 13:59] VITALS: O2SAT 99
== END 2016-12-04 14:11 | disposition home or self-care (01) ==
LOC: C.ER 09:06
DX: D57.00 Hb-SS disease with crisis, unspecified (principal); N93.8 Other specified abnormal uterine and vaginal bleeding
CPT/HCPCS: 80053; 81001; 83615; 84703; 85025; 85044; 96360; 96361; 99284; J7040

== ENCOUNTER 2016-12-10 03:19 | Emergency (ER) | payer MEDICAID ==
[2016-12-10 03:19] VITALS: BMI 24.5
[2016-12-10 04:07] VITALS: BP 127/68; PULSE 84; RESP 20; TEMP 98.9; O2SAT 97
--- NOTE | 2016-12-10 04:27 | C.PDOC ---
History Of Present Illness 31 year old female presents to the ED with scd complaints of generalized body pain and lower abdominal pressure with urinary symptoms and vaginal bleeding ( amount unclear) since last . She states she was given indomethicin by Dr. Warner on 11/26/16, not taking it for pain since she sts she vomits blood when she does. Patient states she has had vaginal bleeding for third time this month. Patient denies fever and chills, denies taking anything for pain at home. Time Seen by Provider: 12/10/16 04:24 Chief Complaint (Nursing): Abdominal Pain History Per: Patient History/Exam Limitations: no limitations Onset/Duration Of Symptoms: Days (since last ) Current Symptoms Are (Timing): Still Present Location Of Pain/Discomfort: RLQ, LLQ Quality Of Discomfort: Pressure Associated Symptoms: Urinary Symptoms. denies: Fever, Chills, Diarrhea Recent travel outside of the [place]: No Additional History Per: Prior Records Abnormal Vaginal Bleeding: Yes Past Medical History Vital Signs: Last Vital Signs Temp 98.9 F 12/10/16 04:02 Pulse 84 12/10/16 04:02 Resp 20 12/10/16 04:02 BP 127/68 12/10/16 04:02 Pulse Ox 97 12/11/16 20:50 - Medical History PMH: Anemia, Bronchitis, Gall Bladder Disease, Pneumonia, Sickle Cell Disease Surgical History: Cholecystectomy - [facility] Procedures INFLUENZA VACCINATION (03/16/12) INJECT/INFUSE ELECTROLYT (09/07/13) INJECT/INFUSE NEC (01/25/14) INSERTION OF INFUSION DEV INTO SUP VENA CAVA, PERC APPROACH (11/19/16) NEBULIZER THERAPY (12/02/13) PACKED CELL TRANSFUSION (02/12/15) REMOVAL OF VAD FROM TRUNK SUBCU/FASCIA, OPEN APPROACH (04/15/16) TRANSFUSE NONAUT RED BLOOD CELLS IN PERIPH VEIN, PERC (04/15/16) VACCINATION NEC (08/22/13) Family History: States: Unknown Family Hx - Social History Hx Tobacco Use: No Hx Alcohol Use: Yes Hx Substance Use: Yes (marijuana occasionally) - Immunization History Hx Tetanus Toxoid Vaccination: Yes Hx Influenza Vaccination: No (2015) Hx Pneumococcal Vaccination: Yes (2014) Review Of Systems Constitutional: Negative for: Fever, Chills Gastrointestinal: Positive for: Abdominal Pain Genitourinary: Positive for: Vaginal Bleeding, Other (urinary symptoms) Physical Exam - Physical Exam Additional Physical Exam Comments: Constitutional: No acute distress. WDWN. Head: Normocephalic. Atraumatic. Eyes: PERRL. EOMI. ENT: Moist mucous membranes. Neck: Supple. Cardiovascular: Regular rate and rhythm. Chest: No tenderness. Respiratory: Clear to auscultation bilaterally. GI: Soft. Nontender. Nondistended. Normoactive bowel sounds. No rebound. No guarding. Back: No CVA and no mid-line tenderness. Musculoskeletal: No tenderness or swelling of extremities. Skin: No rash. Neurologic: Alert, no focal deficit. ED Course And Treatment O2 Sat by Pulse Oximetry: 97 (room air) Medical Decision Making Medical Decision Making: pt requesting pain medication., sts she can't take indocin that dr warner prescribed because she vomits blood when she does. pt reports hives with oxycodone; will give benadryl with percocet. given pt's hx of allergy to percocet, medication changed to tylenol, ot eloped from ed. [place] RX aware checked; pt is regualrly prescribed oxycodone. Disposition - Disposition Disposition: ELOPEMENT - ER ONLY Disposition Time: 06:30 Condition: STABLE - Clinical Impression Clinical Impression: Total body pain - Scribe Statement The provider has reviewed the documentation as recorded by the Scribvalarie Santiago All medical record entries made by the Zacheryibvalarie were at my direction and personally dictated by me. I have reviewed the chart and agree that the record accurately reflects my personal performance of the history, physical exam, medical decision making, and the department course for this patient. I have also personally directed, reviewed, and agree with the discharge instructions and disposition.
[2016-12-10] MEDS ORDERED: Oxycodone/Acetaminophen 5/325 mg Tab PO STA (05:30)
[2016-12-10] MEDS ORDERED: DiphenhydrAMINE 50 mg/ml Inj IM STA (05:31)
[2016-12-10 05:35] LABS: SQUAMOUS EPITHIAL 2 /hpf (0-5); URINE BILIRUBIN NEGATIVE (NEGATIVE); URINE BLOOD 2+ (NEGATIVE); URINE CLARITY Clear (Clear); URINE COLOR Yellow (YELLOW); URINE GLUCOSE (UA) NORMAL (Normal); URINE HYALINE CAST 0-2 /lpf (0-2); URINE LEUKOCYTE ESTERASE NEG Leu/uL (Negative); URINE NITRATE NEGATIVE (NEGATIVE); URINE PROTEIN NEGATIVE (NEGATIVE); URINE UROBILINOGEN NORMAL mg/dL (0.2-1.0)
[2016-12-10] MEDS ORDERED: Oxycodone/Acetaminophen 5/325 mg Tab ONE (05:35)
[2016-12-10] MEDS ORDERED: DiphenhydrAMINE 50 mg/ml Inj ONE (05:36)
== END 2016-12-10 06:15 | disposition left against medical advice (07) ==
LOC: C.ER 03:19
DX: R52 Pain, unspecified (principal); D57.1 Sickle-cell disease without crisis

== ENCOUNTER 2016-12-11 09:39 | Emergency (ER) | payer MEDICAID ==
[2016-12-11 09:41] VITALS: BMI 24.5
--- NOTE | 2016-12-11 10:55 | C.PDOC ---
History Of Present Illness 31 y/o female, history of sickle cell disease, presents to ED with complaint of generalized body pain. Patient notes she tried to see Dr. Mike Louis but is unable to make an appointment until next week. Otherwise, denies fever, chills, headache, nausea, vomiting, diarrhea, chest pain, SOB, or other associated symptoms. Patient is well known to ER staff with multiple similar prior visits. Time Seen by Provider: 12/11/16 10:00 Chief Complaint (Nursing): Pain, Chronic History Per: Patient History/Exam Limitations: no limitations Onset/Duration Of Symptoms: Persistent Current Symptoms Are (Timing): Still Present Reports Recently: Seen In ED Recent travel outside of the [place]: No Past Medical History Reviewed: Historical Data, Nursing Documentation, Vital Signs Vital Signs: Last Vital Signs Temp 98.4 F 12/11/16 13:21 Pulse 69 12/11/16 13:21 Resp 20 12/11/16 13:21 BP 128/82 12/11/16 13:21 Pulse Ox 97 12/11/16 13:21 - Medical History PMH: Anemia, Bronchitis, Gall Bladder Disease, Pneumonia, Sickle Cell Disease Surgical History: Cholecystectomy - [facility] Procedures INFLUENZA VACCINATION (03/16/12) INJECT/INFUSE ELECTROLYT (09/07/13) INJECT/INFUSE NEC (01/25/14) INSERTION OF INFUSION DEV INTO SUP VENA CAVA, PERC APPROACH (11/19/16) NEBULIZER THERAPY (12/02/13) PACKED CELL TRANSFUSION (02/12/15) REMOVAL OF VAD FROM TRUNK SUBCU/FASCIA, OPEN APPROACH (04/15/16) TRANSFUSE NONAUT RED BLOOD CELLS IN PERIPH VEIN, PERC (04/15/16) VACCINATION NEC (08/22/13) Family History: States: Unknown Family Hx - Social History Hx Tobacco Use: No Hx Alcohol Use: Yes Hx Substance Use: Yes (marijuana occasionally) - Immunization History Hx Tetanus Toxoid Vaccination: Yes Hx Influenza Vaccination: No (2015) Hx Pneumococcal Vaccination: Yes (2014) Review Of Systems Except As Marked, All Systems Reviewed And Found Negative. Constitutional: Positive for: Malaise. Negative for: Fever, Chills Cardiovascular: Negative for: Chest Pain, Palpitations Respiratory: Negative for: Cough, Shortness of Breath, Wheezing Gastrointestinal: Negative for: Nausea, Vomiting, Abdominal Pain, Diarrhea Skin: Negative for: Rash Neurological: Negative for: Headache, Dizziness Physical Exam - Physical Exam Appears: Non-toxic, No Acute Distress Skin: Normal Color, Warm, Dry Head: Atraumatic, Normacephalic Eye(s): bilateral: Normal Inspection, PERRL, EOMI Oral Mucosa: Moist Chest: Symmetrical Cardiovascular: Rhythm Regular Respiratory: Normal Breath Sounds, No Rales, No Rhonchi, No Wheezing Gastrointestinal/Abdominal: Soft, No Tenderness, No Guarding, No Rebound Back: Normal Inspection Extremity: Normal ROM, Capillary Refill (< 2 sec. ) Neurological/Psych: Oriented x3, Normal Speech, Normal Cognition ED Course And Treatment - Laboratory Results Result Diagrams: 12/11/16 12:00 12/11/16 12:00 Medical Decision Making Medical Decision Making: Plan: * Sickle cell PO Protocol: Dilaudid, Tylenol, Benadryl, Reglan * Labs * Reassess Progress: Labs reviewed no acute changes Patient reevaluated complains of pain, second dose of Dilaudid PO given Patient observed to be walking around, smiling, no distress, talking to staff or on the phone Patient to be discharge and instruct to follow up with Dr Louis Disposition - Disposition Referrals: Enzo Louis MD [Staff Provider] - Disposition: HOME/ ROUTINE Disposition Time: 13:30 Condition: STABLE Instructions: Sickle Cell Crisis (DC) - POA Present On Arrival: None - Clinical Impression Clinical Impression: Sickle cell crisis, Chronic pain disorder - PA / TEMPORARY STAFF ACCOUNTANT / Resident Statement MD/DO has reviewed & agrees with the documentation as recorded. - Scribe Statement The provider has reviewed the documentation as recorded by the Scribvalarie Hamlin All medical record entries made by the Rosa were at my direction and personally dictated by me. I have reviewed the chart and agree that the record accurately reflects my personal performance of the history, physical exam, medical decision making, and the department course for this patient. I have also personally directed, reviewed, and agree with the discharge instructions and disposition.
[2016-12-11 12:15] LABS: BASO # 0.2 K/uL (0.0-0.2); BASO % 1.2 % (0.0-2.0); EOS # 0.3 K/uL (0.0-0.7); EOS % 2.1 % (0.0-4.0); HEMATOCRIT 28.8 % (34.0-47.0); LYMPH # 4.6 K/uL (1.0-4.3); MEAN CELL VOLUME 98.6 fL (81.0-99.0); MEAN CORPUSCULAR HEMOGLOBIN 32.7 pg (27.0-31.0); MEAN CORPUSCULAR HGB CONC 33.2 g/dL (33.0-37.0); MEAN PLATELET VOLUME 8.6 fL (7.2-11.7); MONO # 1.1 K/uL (0.0-0.8); MONO % 7.1 % (0.0-10.0); RED CELL DISTRIBUTION WIDTH 26.1 % (11.5-14.5); WHITE BLOOD COUNT 15.9 K/uL (4.8-10.8)
[2016-12-11 12:26] LABS: CHLORIDE 104 mmol/L (98-107)
[2016-12-11 12:27] LABS: POTASSIUM 4.3 mmol/L (3.6-5.2); SODIUM 142 mmol/L (132-148)
[2016-12-11 12:29] LABS: ALB/GLOB RATIO 1.3 (1.0-2.1); ALKALINE PHOSPHATASE 128 U/L (38-126); ALT/SGPT 82 U/L (9-52); AST/SGOT 61 U/L (14-36); BILIRUBIN,TOTAL 1.8 mg/dL (0.2-1.3); BLOOD UREA NITROGEN 10 mg/dL (7-17); CARBON DIOXIDE 28 mmol/L (22-30); GFR AFRICAN-AMERICAN > 60; TOTAL PROTEIN 7.6 g/dL (6.3-8.3)
[2016-12-11 12:30] LABS: CALCIUM 9.5 mg/dl (8.6-10.4); GLUCOSE,RANDOM 94 mg/dL (65-105)
[2016-12-11 13:22] VITALS: BP 128/82; PULSE 69; RESP 20; TEMP 98.4; O2SAT 97
== END 2016-12-11 13:37 | disposition home or self-care (01) ==
LOC: C.ER 09:39
DX: G89.29 Other chronic pain (principal); D57.00 Hb-SS disease with crisis, unspecified

== ENCOUNTER 2016-12-18 09:38 | Emergency (ER) | payer MEDICAID ==
[2016-12-18 09:38] VITALS: BMI 24.5
[2016-12-18 09:42] VITALS: TEMP 98.4
[2016-12-18 10:38] LABS: HCG,QUALITATIVE URINE NEGATIVE (NEGATIVE)
[2016-12-18 10:46] LABS: SQUAMOUS EPITHIAL 16 /hpf (0-5); URINE BACTERIA RARE (<OCC); URINE BILIRUBIN NEGATIVE (NEGATIVE); URINE BLOOD NEGATIVE (NEGATIVE); URINE CLARITY Hazy (Clear); URINE COLOR Yellow (YELLOW); URINE GLUCOSE (UA) NORMAL (Normal); URINE LEUKOCYTE ESTERASE NEG Leu/uL (Negative); URINE NITRATE NEGATIVE (NEGATIVE); URINE PROTEIN NEGATIVE (NEGATIVE); URINE UROBILINOGEN NORMAL mg/dL (0.2-1.0)
--- NOTE | 2016-12-18 11:37 | C.PDOC ---
History Of Present Illness 31-year-old female, history of sickle cell disease, presents to ED with complaint of generalized body pain. Patient has a Hx of multiple visits to ED in past with same complaint, and is familiar to ED staff. Otherwise, denies fever, chills, headache, nausea, vomiting, diarrhea, chest pain, SOB, or other associated symptoms. Time Seen by Provider: 12/18/16 09:53 Chief Complaint (Nursing): Medical Clearance Past Medical History Vital Signs: Last Vital Signs Temp 98.4 F 12/18/16 09:40 Pulse 82 12/18/16 11:43 Resp 17 12/18/16 11:43 BP 111/70 12/18/16 11:43 Pulse Ox 98 12/18/16 12:37 - Medical History PMH: Anemia, Bronchitis, Gall Bladder Disease, Pneumonia, Sickle Cell Disease Surgical History: Cholecystectomy - [facility] Procedures INFLUENZA VACCINATION (03/16/12) INJECT/INFUSE ELECTROLYT (09/07/13) INJECT/INFUSE NEC (01/25/14) INSERTION OF INFUSION DEV INTO SUP VENA CAVA, PERC APPROACH (11/19/16) NEBULIZER THERAPY (12/02/13) PACKED CELL TRANSFUSION (02/12/15) REMOVAL OF VAD FROM TRUNK SUBCU/FASCIA, OPEN APPROACH (04/15/16) TRANSFUSE NONAUT RED BLOOD CELLS IN PERIPH VEIN, PERC (04/15/16) VACCINATION NEC (08/22/13) Family History: States: Unknown Family Hx - Social History Hx Tobacco Use: No Hx Alcohol Use: Yes Hx Substance Use: Yes (marijuana occasionally) - Immunization History Hx Tetanus Toxoid Vaccination: Yes Hx Influenza Vaccination: No (2015) Hx Pneumococcal Vaccination: Yes (2014) Review Of Systems Except As Marked, All Systems Reviewed And Found Negative. Constitutional: Positive for: Other (Myalgias). Negative for: Fever, Chills Cardiovascular: Negative for: Chest Pain, Palpitations Respiratory: Negative for: Shortness of Breath Gastrointestinal: Negative for: Nausea, Vomiting Musculoskeletal: Negative for: Back Pain Neurological: Negative for: Weakness, Numbness, Headache, Dizziness Physical Exam - Physical Exam Appears: Non-toxic, No Acute Distress (Uncomfortable) Skin: Warm, Dry, No Rash Eye(s): bilateral: Normal Inspection Nose: Normal Oral Mucosa: Moist Lips: Normal Appearing Neck: Normal ROM Cardiovascular: Rhythm Regular, No Murmur Respiratory: Normal Breath Sounds, No Accessory Muscle Use Extremity: Normal ROM Neurological/Psych: Oriented x3, Normal Speech ED Course And Treatment O2 Sat by Pulse Oximetry: 98 Progress Note: On re-exam patient feels better and is ready to be d/c home. Medical Decision Making Medical Decision Making: Prior Visits Notes and records from previous visits were reviewed. Patient seen in ED on for same complaint and treated with Sickle cell PO Protocol: Dilaudid, Tylenol, Benadryl, Reglan. Disposition - Disposition Disposition: HOME/ ROUTINE Disposition Time: 12:37 Condition: IMPROVED Additional Instructions: Follow up with PMD within 1-2 days. Return to ED if feel worse. Instructions: Sickle Cell Crisis (ED) - Clinical Impression Clinical Impression: Sickle cell crisis - Scribe Statement The provider has reviewed the documentation as recorded by the Scribe (Anika Shearer) All medical record entries made by the Scribe were at my direction and personally dictated by me. I have reviewed the chart and agree that the record accurately reflects my personal performance of the history, physical exam, medical decision making, and the department course for this patient. I have also personally directed, reviewed, and agree with the discharge instructions and disposition.
[2016-12-18 11:44] VITALS: BP 111/70; PULSE 82; RESP 17
[2016-12-18 12:38] VITALS: O2SAT 98
== END 2016-12-18 12:44 | disposition home or self-care (01) ==
LOC: C.ER 09:38
DX: D57.00 Hb-SS disease with crisis, unspecified (principal)

== ENCOUNTER 2016-12-20 11:52 | Emergency (ER) | payer MEDICAID ==
[2016-12-20 11:52] VITALS: BMI 24.5
[2016-12-20 12:01] VITALS: RESP 18
[2016-12-20 12:20] LABS: SQUAMOUS EPITHIAL < 1 /hpf (0-5); URINE BILIRUBIN NEGATIVE (NEGATIVE); URINE BLOOD NEGATIVE (NEGATIVE); URINE CLARITY Clear (Clear); URINE COLOR Yellow (YELLOW); URINE GLUCOSE (UA) NORMAL (Normal); URINE LEUKOCYTE ESTERASE NEG Leu/uL (Negative); URINE NITRATE NEGATIVE (NEGATIVE); URINE PROTEIN NEGATIVE (NEGATIVE)
[2016-12-20 12:24] LABS: HCG,QUALITATIVE URINE NEGATIVE (NEGATIVE)
--- NOTE | 2016-12-20 14:07 | C.PDOC ---
History Of Present Illness 31 y/o female with PMHx of sickle cell disease presents to the ED c/o generalized body pain. She denies fever, cough, chest pain, SOB, abdominal pain , nausea/vomiting, fever/chills. Time Seen by Provider: 12/20/16 12:14 Chief Complaint (Nursing): Pain, Chronic History Per: Patient History/Exam Limitations: no limitations Onset/Duration Of Symptoms: Days Current Symptoms Are (Timing): Still Present Severity: Mild Additional History Per: Patient Past Medical History Reviewed: Historical Data, Nursing Documentation, Vital Signs Vital Signs: Last Vital Signs Temp 98.6 F 12/20/16 16:12 Pulse 88 12/20/16 16:12 Resp 18 12/20/16 16:12 BP 112/72 12/20/16 16:12 Pulse Ox 98 12/20/16 16:12 - Medical History PMH: Anemia, Bronchitis, Gall Bladder Disease, Pneumonia, Sickle Cell Disease Surgical History: Cholecystectomy - [facility] Procedures INFLUENZA VACCINATION (03/16/12) INJECT/INFUSE ELECTROLYT (09/07/13) INJECT/INFUSE NEC (01/25/14) INSERTION OF INFUSION DEV INTO SUP VENA CAVA, PERC APPROACH (11/19/16) NEBULIZER THERAPY (12/02/13) PACKED CELL TRANSFUSION (02/12/15) REMOVAL OF VAD FROM TRUNK SUBCU/FASCIA, OPEN APPROACH (04/15/16) TRANSFUSE NONAUT RED BLOOD CELLS IN PERIPH VEIN, PERC (04/15/16) VACCINATION NEC (08/22/13) Family History: States: No Known Family Hx - Social History Hx Tobacco Use: No Hx Alcohol Use: Yes Hx Substance Use: Yes (marijuana occasionally) - Immunization History Hx Tetanus Toxoid Vaccination: Yes Hx Influenza Vaccination: No (2015) Hx Pneumococcal Vaccination: Yes (2014) Review Of Systems Except As Marked, All Systems Reviewed And Found Negative. Constitutional: Positive for: Other (body aches). Negative for: Fever, Chills Cardiovascular: Negative for: Chest Pain, Palpitations, Light Headedness Respiratory: Negative for: Cough, Shortness of Breath Gastrointestinal: Negative for: Nausea, Vomiting, Abdominal Pain Neurological: Negative for: Weakness, Numbness, Headache, Dizziness Physical Exam - Physical Exam Appears: Well, Non-toxic, No Acute Distress Skin: Normal Color, Warm, Dry Eye(s): bilateral: Normal Inspection Oral Mucosa: Moist Chest: Symmetrical Cardiovascular: Rhythm Regular Respiratory: Normal Breath Sounds, No Rales, No Rhonchi, No Wheezing Gastrointestinal/Abdominal: Normal Exam, Bowel Sounds, Soft, No Tenderness Extremity: Normal ROM, No Pedal Edema, No Calf Tenderness Neurological/Psych: Oriented x3 ED Course And Treatment - Laboratory Results Result Diagrams: 12/20/16 14:46 12/20/16 14:46 O2 Sat by Pulse Oximetry: 96 (on RA) Pulse Ox Interpretation: Normal Progress Note: Blood work, UA, Upreg ordered and reviewed. Patient was given PO Dilaudid and PO Benadryl as per ED sickle cell protocol. Reevaluation Time: 16:30 Reassessment Condition: Improved (On reassessment, patient reports improvement of her pain and is requesting to be discharged home. Patient is well appearing , with normal vitals. She was instructed to follow up with PMD in 1-2 days, and she understands she should return to ED if symptoms worsen.) Disposition Counseled Patient/Family Regarding: Studies Performed, Diagnosis, Need For Followup, Rx Given - Disposition Referrals: Enzo Louis MD [Staff Provider] - Disposition: HOME/ ROUTINE Disposition Time: 16:30 Condition: STABLE Additional Instructions: FOLLOW UP WITH YOUR DOCTOR IN 1-2 DAYS DRINK PLENTY OF FLUIDS RETURN TO ER IF SYMPTOMS WORSEN Instructions: Sickle Cell Anemia (DC) Print Language: DJIBOUTIAN - Clinical Impression Clinical Impression: Sickle cell disease, Sickle cell pain crisis - Scribe Statement The provider has reviewed the documentation as recorded by the Scribe Annmarie Louis All medical record entries made by the Zacheryibvalarie were at my direction and personally dictated by me. I have reviewed the chart and agree that the record accurately reflects my personal performance of the history, physical exam, medical decision making, and the department course for this patient. I have also personally directed, reviewed, and agree with the discharge instructions and disposition.
[2016-12-20 14:53] LABS: BASO # 0.1 K/uL (0.0-0.2); BASO % 0.7 % (0.0-2.0); EOS # 0.2 K/uL (0.0-0.7); HEMOGLOBIN 8.5 g/dL (11.0-16.0); LYMPH # 5.3 K/uL (1.0-4.3); MONO # 1.4 K/uL (0.0-0.8); NEUT # 9.7 K/uL (1.8-7.0); WHITE BLOOD COUNT 16.7 K/uL (4.8-10.8)
[2016-12-20 14:58] LABS: ALBUMIN 4.2 g/dL (3.5-5.0); EOS % 1.5 % (0.0-4.0); LYMPH % 31.6 % (20.0-40.0); MEAN CORPUSCULAR HGB CONC 32.7 g/dL (33.0-37.0); MEAN PLATELET VOLUME 8.3 fL (7.2-11.7); MONO % 8.5 % (0.0-10.0); NEUT % 57.7 % (50.0-75.0); NRBC % 0.9 % (0.0-2.0); RBC 2.58 Mil/uL (3.80-5.20); RED CELL DISTRIBUTION WIDTH 28.9 % (11.5-14.5)
[2016-12-20 15:01] LABS: AST/SGOT 73 U/L (14-36); GFR AFRICAN-AMERICAN > 60; GFR NON-AFRICAN AMERICAN > 60
[2016-12-20 15:02] LABS: ALB/GLOB RATIO 1.2 (1.0-2.1); ALT/SGPT 117 U/L (9-52); BLOOD UREA NITROGEN 8 mg/dL (7-17); CALCIUM 9.3 mg/dl (8.6-10.4)
[2016-12-20 16:13] VITALS: BP 112/72; PULSE 88; TEMP 98.6
[2016-12-30 10:29] VITALS: O2SAT 96
== END 2016-12-20 16:12 | disposition home or self-care (01) ==
LOC: C.ER 11:52
DX: D57.00 Hb-SS disease with crisis, unspecified (principal)

== ENCOUNTER 2016-12-21 12:43 | Emergency (ER) | payer MEDICAID ==
[2016-12-21 12:43] VITALS: BMI 24.5
[2016-12-21 12:54] VITALS: RESP 18
--- NOTE | 2016-12-21 13:03 | C.PDOC ---
History Of Present Illness Patient is a 31 y/o female, whose PMHx includes sickle cell disease, that presents to the ED with complaints of chronic body pains, and back pain for the past week. Patient has been seen in this ED multiple times in the past for similar symptoms. Otherwise, denies any chest pain, shortness of breath, headache, dizziness, or any other associated symptoms at this time. Time Seen by Provider: 12/21/16 13:02 Chief Complaint (Nursing): Back Pain History Per: Patient History/Exam Limitations: no limitations Onset/Duration Of Symptoms: Days Current Symptoms Are (Timing): Still Present Quality Of Discomfort: "Pain" Previous Symptoms: None Associated Symptoms: None. denies: Incontinence, New Weakness, New Numbness Exacerbating Factor(s): Nothing Recent travel outside of the [place]: No Additional History Per: Patient Past Medical History Reviewed: Historical Data, Nursing Documentation, Vital Signs Vital Signs: Last Vital Signs Temp 97.5 F L 12/21/16 16:09 Pulse 82 12/21/16 16:09 Resp 18 12/21/16 16:09 BP 130/89 12/21/16 16:09 Pulse Ox 98 12/21/16 16:09 - Medical History PMH: Anemia, Bronchitis, Gall Bladder Disease, Pneumonia, Sickle Cell Disease Surgical History: Cholecystectomy - [facility] Procedures INFLUENZA VACCINATION (03/16/12) INJECT/INFUSE ELECTROLYT (09/07/13) INJECT/INFUSE NEC (01/25/14) INSERTION OF INFUSION DEV INTO SUP VENA CAVA, PERC APPROACH (11/19/16) NEBULIZER THERAPY (12/02/13) PACKED CELL TRANSFUSION (02/12/15) REMOVAL OF VAD FROM TRUNK SUBCU/FASCIA, OPEN APPROACH (04/15/16) TRANSFUSE NONAUT RED BLOOD CELLS IN PERIPH VEIN, PERC (04/15/16) VACCINATION NEC (08/22/13) Family History: States: Unknown Family Hx - Social History Hx Tobacco Use: No Hx Alcohol Use: Yes Hx Substance Use: Yes (marijuana occasionally) - Immunization History Hx Tetanus Toxoid Vaccination: Yes Hx Influenza Vaccination: Yes (2015) Hx Pneumococcal Vaccination: Yes (2014) Review Of Systems Except As Marked, All Systems Reviewed And Found Negative. Constitutional: Positive for: Other (body aches). Negative for: Fever, Chills Cardiovascular: Negative for: Chest Pain, Palpitations Respiratory: Negative for: Cough, Shortness of Breath Gastrointestinal: Negative for: Nausea, Vomiting, Abdominal Pain Musculoskeletal: Positive for: Back Pain Neurological: Negative for: Weakness, Numbness Physical Exam - Physical Exam Appears: Non-toxic, No Acute Distress Skin: Normal Color, Warm, Dry Head: Atraumatic, Normacephalic Eye(s): bilateral: Normal Inspection, EOMI Neck: Normal ROM, Supple Chest: Symmetrical, No Tenderness Cardiovascular: Rhythm Regular, No Murmur Respiratory: Normal Breath Sounds, No Accessory Muscle Use, No Rales, No Rhonchi , No Wheezing Gastrointestinal/Abdominal: Soft, No Tenderness Back: Normal Inspection, No CVA Tenderness, No Vertebral Tenderness, No Paraspinal Tenderness Extremity: Normal ROM Extremity: Bilateral: Atraumatic Neurological/Psych: Oriented x3, Normal Speech, Normal Cognition, Normal Motor, Normal Sensation (Normal Strength) ED Course And Treatment - Laboratory Results Result Diagrams: 12/21/16 13:35 12/21/16 13:35 O2 Sat by Pulse Oximetry: 97 (on RA) Pulse Ox Interpretation: Normal Progress Note: Patient was given Benadryl, and Dilaudid. On reassessment, patient is resting comfortably, no acute distress. Medical Decision Making Medical Decision Makin pts pcp Dr Louis came and eval her in the ED 1618 pt now requesting to be dc. she appears well, no distress, ambulatory w steady gait. Disposition - Disposition Disposition: HOME/ ROUTINE Disposition Time: 16:19 Condition: STABLE - Clinical Impression Clinical Impression: Sickle cell pain crisis - Scribe Statement The provider has reviewed the documentation as recorded by the Zacheryibvlaarie Louis All medical record entries made by the Rosa were at my direction and personally dictated by me. I have reviewed the chart and agree that the record accurately reflects my personal performance of the history, physical exam, medical decision making, and the department course for this patient. I have also personally directed, reviewed, and agree with the discharge instructions and disposition.
[2016-12-21 13:40] LABS: BASO # 0.2 K/uL (0.0-0.2); EOS # 0.5 K/uL (0.0-0.7); EOS % 2.8 % (0.0-4.0); HEMOGLOBIN 8.3 g/dL (11.0-16.0); LYMPH # 5.8 K/uL (1.0-4.3); LYMPH % 32.2 % (20.0-40.0); MEAN CELL VOLUME 100.2 fL (81.0-99.0); MEAN CORPUSCULAR HEMOGLOBIN 32.8 pg (27.0-31.0); MEAN CORPUSCULAR HGB CONC 32.7 g/dL (33.0-37.0); MEAN PLATELET VOLUME 8.2 fL (7.2-11.7); MONO # 1.6 K/uL (0.0-0.8); MONO % 8.7 % (0.0-10.0); NEUT # 9.9 K/uL (1.8-7.0); NEUT % 55.3 % (50.0-75.0); NRBC % 0.9 % (0.0-2.0); RBC 2.52 Mil/uL (3.80-5.20); RED CELL DISTRIBUTION WIDTH 28.1 % (11.5-14.5); WHITE BLOOD COUNT 17.9 K/uL (4.8-10.8)
[2016-12-21 13:56] LABS: SQUAMOUS EPITHIAL 5 /hpf (0-5); URINE BILIRUBIN NEGATIVE (NEGATIVE); URINE BLOOD NEGATIVE (NEGATIVE); URINE CLARITY Clear (Clear); URINE COLOR Yellow (YELLOW); URINE GLUCOSE (UA) NORMAL (Normal); URINE LEUKOCYTE ESTERASE NEG Leu/uL (Negative); URINE NITRATE NEGATIVE (NEGATIVE); URINE PROTEIN NEGATIVE (NEGATIVE); URINE UROBILINOGEN NORMAL mg/dL (0.2-1.0)
[2016-12-21 13:56] LABS: ALBUMIN 4.2 g/dL (3.5-5.0)
[2016-12-21 13:59] LABS: AST/SGOT 65 U/L (14-36); GFR AFRICAN-AMERICAN > 60; GFR NON-AFRICAN AMERICAN > 60
[2016-12-21 14:00] LABS: ALB/GLOB RATIO 1.3 (1.0-2.1); ALT/SGPT 113 U/L (9-52); BLOOD UREA NITROGEN 9 mg/dL (7-17); CALCIUM 9.6 mg/dl (8.6-10.4)
[2016-12-21 16:10] VITALS: BP 130/89; PULSE 82; TEMP 97.5
[2016-12-21 16:20] VITALS: O2SAT 97
--- NOTE | 2016-12-21 16:24 | RAD ---
Lumbar spine three views History: Back pain. Comparison: None available. Findings: Surgical clips in the right upper abdomen. Surgical clip projecting over left hemipelvis. Spinal alignment is maintained. Vertebral body heights are preserved. Sclerotic foci project over the right iliac bone and right bony acetabulum which may represent bone islands. Mild superior endplate concavities of the L4 on L5 vertebral bodies. Mild lower level facet hypertrophy and sclerosis. Impression: Degenerative changes. If pain persists, consider MRI.
== END 2016-12-21 16:24 | disposition home or self-care (01) ==
LOC: C.ER 12:43
DX: D57.00 Hb-SS disease with crisis, unspecified (principal)

== ENCOUNTER 2016-12-24 10:06 | Emergency (ER) | payer MEDICAID ==
[2016-12-24 10:06] VITALS: BMI 24.5
--- NOTE | 2016-12-24 10:33 | C.PDOC ---
History Of Present Illness 31 y/o female presents to the ED with complaints of GEN PAIN. Pt with history of sickle cell disease, frequent visits to ED for the same. No new symptoms. STATES SX RECUR 3 DAYS. GEN BODY PAIN NO FEVER NV. PS HAD TALKED TO PMD THIS MORNING AND WAS TOLD TO COME TO ER AND "GET TESTED" EXAM NAD APPEARS COMFORTABLE EXAM NEG mdm PERSIST ELEVATED WBC SINCE 12/04. PMD AWARE. MULT PRIOR ER VISITS FOR SIM SX, 4 ED VISITS THIS MONTH LAST EVAL 12/21 Time Seen by Provider: 12/24/16 10:15 History Per: Patient History/Exam Limitations: no limitations Onset/Duration Of Symptoms: Days Current Symptoms Are (Timing): Still Present Severity: Mild Reports Recently: Seen In ED, Treated By A Physician Recent travel outside of the [place]: No Past Medical History Reviewed: Historical Data, Nursing Documentation, Vital Signs Vital Signs: Last Vital Signs Temp 98.0 F 12/24/16 11:14 Pulse 80 12/24/16 11:14 Resp 18 12/24/16 11:14 BP 118/70 12/24/16 11:14 Pulse Ox 99 12/24/16 11:14 - Medical History PMH: Anemia, Bronchitis, Gall Bladder Disease, Pneumonia, Sickle Cell Disease Surgical History: Cholecystectomy - [facility] Procedures INFLUENZA VACCINATION (03/16/12) INJECT/INFUSE ELECTROLYT (09/07/13) INJECT/INFUSE NEC (01/25/14) INSERTION OF INFUSION DEV INTO SUP VENA CAVA, PERC APPROACH (11/19/16) NEBULIZER THERAPY (12/02/13) PACKED CELL TRANSFUSION (02/12/15) REMOVAL OF VAD FROM TRUNK SUBCU/FASCIA, OPEN APPROACH (04/15/16) TRANSFUSE NONAUT RED BLOOD CELLS IN PERIPH VEIN, PERC (04/15/16) VACCINATION NEC (08/22/13) Family History: States: Unknown Family Hx - Social History Hx Tobacco Use: No Hx Alcohol Use: No Hx Substance Use: Yes (marijuana occasionally) - Immunization History Hx Tetanus Toxoid Vaccination: Yes Hx Influenza Vaccination: Yes (2015) Hx Pneumococcal Vaccination: Yes (2014) Review Of Systems Except As Marked, All Systems Reviewed And Found Negative. Gastrointestinal: Positive for: Abdominal Pain Physical Exam - Physical Exam Appears: Non-toxic, No Acute Distress Skin: Warm, Dry, No Rash Head: Atraumatic, Normacephalic Neck: Normal, Normal ROM, Supple Chest: Symmetrical Cardiovascular: Rhythm Regular, No Murmur Respiratory: Normal Breath Sounds, No Rales, No Rhonchi, No Wheezing Gastrointestinal/Abdominal: Normal Exam, Soft, No Tenderness Extremity: Normal ROM Extremity: Bilateral: Atraumatic Neurological/Psych: Oriented x3, Normal Speech ED Course And Treatment O2 Sat by Pulse Oximetry: 98 (room air) Pulse Ox Interpretation: Normal Progress - Re-Evaluation Re-evaluation Note: 12/24/16 10:57 D/W DR Ariel [place], STATES DID NOT ADVISE PT WAS TO GET REPEAT BLOOD TESTING DONE. AGREES W ED MGMT PLAN, STATES PT IS NOT TO BE DC W NARCOTIC RX DUE TO CONCERN FOR ABUSE. PT AGREES W MGMT PLAN - Data Reviewed Data Reviewed: Old records Medical Decision Making Medical Decision Making: PERSIST ELEVATED WBC SINCE 12/04. PMD AWARE. MULT PRIOR ER VISITS FOR SIM SX, 4 ED VISITS THIS MONTH LAST EVAL 12/21 Disposition Counseled Patient/Family Regarding: Diagnosis, Need For Followup - Disposition Referrals: Enzo Willingham MD [Staff Provider] - Disposition: HOME/ ROUTINE Disposition Time: 11:19 Condition: IMPROVED Instructions: Chronic Pain (ED) - Clinical Impression Clinical Impression: Chronic pain - Scribe Statement The provider has reviewed the documentation as recorded by the Rosa Kidd Provider Attestation: All medical record entries made by the Zacheryibvalarie were at my direction and personally dictated by me. I have reviewed the chart and agree that the record accurately reflects my personal performance of the history, physical exam, medical decision making, and the department course for this patient. I have also personally directed, reviewed, and agree with the discharge instructions and disposition.
[2016-12-24 11:15] VITALS: BP 118/70; PULSE 80; RESP 18; TEMP 98
[2016-12-24 11:19] VITALS: O2SAT 98
== END 2016-12-24 11:20 | disposition home or self-care (01) ==
LOC: C.ER 10:06
DX: G89.29 Other chronic pain (principal)

== ENCOUNTER 2016-12-25 09:14 | Emergency (ER) | payer MEDICAID ==
[2016-12-25 09:14] VITALS: BMI 24.5
--- NOTE | 2016-12-25 10:37 | C.PDOC ---
History Of Present Illness 31 yr old female presents to the ER with complaints of abdominal pain. Patient is very well known to the ED for multiple prior visits. Patient denies trauma, chest pain, SOB, nausea or vomiting. Time Seen by Provider: 12/25/16 09:38 Chief Complaint (Nursing): Abdominal Pain History Per: Patient History/Exam Limitations: no limitations Onset/Duration Of Symptoms: Persistent Past Medical History Reviewed: Historical Data, Nursing Documentation, Vital Signs Vital Signs: Last Vital Signs Temp 98.3 F 12/25/16 12:45 Pulse 82 12/25/16 12:45 Resp 20 12/25/16 12:45 BP 111/74 12/25/16 12:45 Pulse Ox 97 12/25/16 12:45 - Medical History PMH: Anemia, Bronchitis, Gall Bladder Disease, Pneumonia, Sickle Cell Disease Surgical History: Cholecystectomy - [facility] Procedures INFLUENZA VACCINATION (03/16/12) INJECT/INFUSE ELECTROLYT (09/07/13) INJECT/INFUSE NEC (01/25/14) INSERTION OF INFUSION DEV INTO SUP VENA CAVA, PERC APPROACH (11/19/16) NEBULIZER THERAPY (12/02/13) PACKED CELL TRANSFUSION (02/12/15) REMOVAL OF VAD FROM TRUNK SUBCU/FASCIA, OPEN APPROACH (04/15/16) TRANSFUSE NONAUT RED BLOOD CELLS IN PERIPH VEIN, PERC (04/15/16) VACCINATION NEC (08/22/13) Family History: States: No Known Family Hx - Social History Hx Tobacco Use: No Hx Alcohol Use: No Hx Substance Use: Yes (marijuana occasionally) - Immunization History Hx Tetanus Toxoid Vaccination: Yes Hx Influenza Vaccination: Yes (2015) Hx Pneumococcal Vaccination: Yes (2014) Review Of Systems Except As Marked, All Systems Reviewed And Found Negative. Constitutional: Positive for: Other ((+) Body pain ) Cardiovascular: Negative for: Chest Pain Respiratory: Negative for: Shortness of Breath Gastrointestinal: Negative for: Nausea, Vomiting Physical Exam - Physical Exam Appears: Well, Non-toxic, No Acute Distress, Other (Patient appears in no distress, is on her phone. ) Skin: Warm, Dry, No Rash Head: Atraumatic, Normacephalic Eye(s): bilateral: Normal Inspection Oral Mucosa: Moist Neck: Normal ROM, Supple Chest: Symmetrical, No Tenderness Cardiovascular: Rhythm Regular, No Murmur Respiratory: Normal Breath Sounds, No Rales, No Rhonchi, No Stridor, No Wheezing Gastrointestinal/Abdominal: Normal Exam, Soft, No Tenderness, No Distention, No Guarding, No Rebound Back: Normal Inspection, No CVA Tenderness, No Vertebral Tenderness, No Paraspinal Tenderness Extremity: Normal ROM, No Tenderness, No Pedal Edema, No Swelling Neurological/Psych: Oriented x3, Normal Speech, Normal Motor Gait: Steady ED Course And Treatment O2 Sat by Pulse Oximetry: 96 (RA ) Pulse Ox Interpretation: Normal Disposition - Disposition Referrals: Enzo Louis MD [Staff Provider] - Disposition: HOME/ ROUTINE Disposition Time: 12:28 Condition: GOOD Additional Instructions: Follow up with the medical doctor within 1-2 days. Return if worsened, Instructions: Sickle Cell Crisis (ED) - Clinical Impression Clinical Impression: Chronic pain disorder - PA / [employer] / Resident Statement MD/DO has reviewed & agrees with the documentation as recorded. - Scribe Statement The provider has reviewed the documentation as recorded by the Scribe Ariadna Willoughby All medical record entries made by the Scribvalarie were at my direction and personally dictated by me. I have reviewed the chart and agree that the record accurately reflects my personal performance of the history, physical exam, medical decision making, and the department course for this patient. I have also personally directed, reviewed, and agree with the discharge instructions and disposition.
[2016-12-25 12:46] VITALS: BP 111/74; PULSE 82; RESP 20; TEMP 98.3
[2016-12-27 16:16] VITALS: O2SAT 96
== END 2016-12-25 12:44 | disposition home or self-care (01) ==
LOC: C.ER 09:14
DX: G89.29 Other chronic pain (principal); D57.1 Sickle-cell disease without crisis

== ENCOUNTER 2016-12-27 09:14 | Inpatient (IN) | payer MEDICAID ==
[2016-12-27 09:14] VITALS: BMI 24.5
--- NOTE | 2016-12-27 09:28 | C.PDOC ---
History Of Present Illness The patient, a 31 y/o female with PMHx of sickle cell disease and frequent ED visit for narcotic pain medications, presents to the ED for evaluation of generalized body pain which began earlier today. Patient states she has "pain everywhere," reports nausea and vomiting and describes her pain as 10/10 in severity. She was last seen in ED two days ago. She denies fever and chills. Time Seen by Provider: 12/27/16 09:25 Chief Complaint (Nursing): Pain, Chronic History Per: Patient History/Exam Limitations: no limitations Onset/Duration Of Symptoms: Hrs Current Symptoms Are (Timing): Still Present Severity: Severe Pain Scale Rating Of: 10 Additional History Per: Patient Past Medical History Reviewed: Historical Data, Nursing Documentation, Vital Signs Vital Signs: Last Vital Signs Temp 98.6 F 12/27/16 09:17 Pulse 83 12/27/16 13:15 Resp 18 12/27/16 13:15 BP 133/71 12/27/16 13:15 Pulse Ox 98 12/27/16 14:56 - Medical History PMH: Anemia, Bronchitis, Gall Bladder Disease, Pneumonia, Sickle Cell Disease Surgical History: Cholecystectomy - [facility] Procedures INFLUENZA VACCINATION (03/16/12) INJECT/INFUSE ELECTROLYT (09/07/13) INJECT/INFUSE NEC (01/25/14) INSERTION OF INFUSION DEV INTO SUP VENA CAVA, PERC APPROACH (11/19/16) NEBULIZER THERAPY (12/02/13) PACKED CELL TRANSFUSION (02/12/15) REMOVAL OF VAD FROM TRUNK SUBCU/FASCIA, OPEN APPROACH (04/15/16) TRANSFUSE NONAUT RED BLOOD CELLS IN PERIPH VEIN, PERC (04/15/16) VACCINATION NEC (08/22/13) Family History: States: Unknown Family Hx - Social History Hx Tobacco Use: No Hx Alcohol Use: No Hx Substance Use: Yes (marijuana occasionally) - Immunization History Hx Tetanus Toxoid Vaccination: Yes Hx Influenza Vaccination: Yes (2015) Hx Pneumococcal Vaccination: Yes (2014) Review Of Systems Constitutional: Negative for: Fever, Chills Gastrointestinal: Positive for: Nausea, Vomiting Musculoskeletal: Positive for: Other (generalized body pain ) Physical Exam - Physical Exam Appears: Non-toxic, Other (+painful distress ) Skin: Normal Color, Warm, Dry Head: Atraumatic Eye(s): bilateral: Normal Inspection Oral Mucosa: Moist Neck: Supple Chest: Symmetrical, No Deformity, No Tenderness Cardiovascular: Rhythm Regular, No Murmur Respiratory: Normal Breath Sounds, No Rales, No Rhonchi, No Wheezing Gastrointestinal/Abdominal: Soft, No Tenderness, No Guarding, No Rebound Back: Normal Inspection, No Vertebral Tenderness Extremity: Normal ROM, Capillary Refill (less than 2 seconds ) Neurological/Psych: Normal Speech, Normal Cognition Gait: Steady ED Course And Treatment - Laboratory Results Result Diagrams: 12/27/16 13:03 12/27/16 13:03 O2 Sat by Pulse Oximetry: 98 (on RA) Pulse Ox Interpretation: Normal Medical Decision Making Medical Decision Making: Impression: 31 y/o female with generalized body pain Plan: * labs * Benadryl IV * Dilaudid IV * IV Fluids Progress: labs ordered and reviewed. Patient received Benadryl IV, Dilaudid IV and IV fluids. Disposition Discussed With : Enzo Louis Doctor Will See Patient In The: Hospital Counseled Patient/Family Regarding: Studies Performed, Diagnosis - Disposition Disposition: HOSPITALIZED Disposition Time: 15:03 Condition: GUARDED - Clinical Impression Clinical Impression: Pain disorder - Scribe Statement The provider has reviewed the documentation as recorded by the Scribe (Katelin Louis) Provider Attestation: All medical record entries made by the Scribe were at my direction and personally dictated by me. I have reviewed the chart and agree that the record accurately reflects my personal performance of the history, physical exam, medical decision making, and the department course for this patient. I have also personally directed, reviewed, and agree with the discharge instructions and disposition. Decision To Admit - Pt Status Changed To: Hospital Disposition Of: Observation - . Bed Request Type: Regular Patient Diagnosis: Pain disorder
[2016-12-27] MEDS ORDERED: Sodium Chloride 0.9% 1,000 ML IV ONE ×2 (10:31→13:50)
[2016-12-27] MEDS ORDERED: HYDROmorphone 1 mg/ml ISec IVP STA ×2 (10:31→15:10)
[2016-12-27] MEDS ORDERED: DiphenhydrAMINE 50 mg/ml Inj IVP STA (10:32)
[2016-12-27 10:58] LABS: HCG,QUALITATIVE URINE NEGATIVE (NEGATIVE)
[2016-12-27 11:02] LABS: SQUAMOUS EPITHIAL 1 /hpf (0-5); URINE BILIRUBIN NEGATIVE (NEGATIVE); URINE BLOOD NEGATIVE (NEGATIVE); URINE CLARITY Clear (Clear); URINE COLOR Yellow (YELLOW); URINE GLUCOSE (UA) NORMAL (Normal); URINE LEUKOCYTE ESTERASE NEG Leu/uL (Negative); URINE NITRATE NEGATIVE (NEGATIVE); URINE PROTEIN NEGATIVE (NEGATIVE); URINE UROBILINOGEN NORMAL mg/dL (0.2-1.0)
[2016-12-27 11:28] LABS: BARBITURATES, UR NEGATIVE (NEGATIVE)
[2016-12-27 11:29] LABS: BENZODIAZEPINES, UR NEGATIVE (NEGATIVE)
[2016-12-27 11:32] LABS: OPIATES, UR NEGATIVE (NEGATIVE)
[2016-12-27 11:33] LABS: PHENCYCLIDINE, UR NEGATIVE (NEGATIVE)
[2016-12-27 13:15] LABS: BASO # 0.1 K/uL (0.0-0.2); BASO % 0.7 % (0.0-2.0); EOS # 0.2 K/uL (0.0-0.7); EOS % 1.1 % (0.0-4.0); HEMOGLOBIN 8.7 g/dL (11.0-16.0); LYMPH # 4.5 K/uL (1.0-4.3); LYMPH % 28.8 % (20.0-40.0); MEAN CELL VOLUME 101.5 fL (81.0-99.0); MEAN CORPUSCULAR HEMOGLOBIN 34.1 pg (27.0-31.0); MEAN CORPUSCULAR HGB CONC 33.6 g/dL (33.0-37.0); MEAN PLATELET VOLUME 7.8 fL (7.2-11.7); MONO # 1.1 K/uL (0.0-0.8); MONO % 7.2 % (0.0-10.0); NEUT # 9.8 K/uL (1.8-7.0); NEUT % 62.2 % (50.0-75.0); NRBC % 1.2 % (0.0-2.0); RBC 2.54 Mil/uL (3.80-5.20); RED CELL DISTRIBUTION WIDTH 29.9 % (11.5-14.5); WHITE BLOOD COUNT 15.8 K/uL (4.8-10.8)
[2016-12-27 13:22] LABS: ALBUMIN 4.3 g/dL (3.5-5.0)
[2016-12-27 13:24] LABS: GFR AFRICAN-AMERICAN > 60; GFR NON-AFRICAN AMERICAN > 60
[2016-12-27 13:25] LABS: ALB/GLOB RATIO 1.4 (1.0-2.1); ALT/SGPT 81 U/L (9-52); AST/SGOT 56 U/L (14-36); BLOOD UREA NITROGEN 7 mg/dL (7-17); CALCIUM 9.3 mg/dl (8.6-10.4); LIPASE 35 U/L (23-300)
[2016-12-27] MEDS ORDERED: HYDROmorphone 1 mg/ml ISec ONE (13:30)
[2016-12-27] MEDS ORDERED: DiphenhydrAMINE 50 mg/ml Inj ONE (13:31)
[2016-12-27] MEDS: Enoxaparin 40 mg Syringe SC SCH (17:21)
[2016-12-27] MEDS: DiphenhydrAMINE 50 mg/ml Inj IVP PRN ×2 (17:21→21:25)
[2016-12-27] MEDS: Pantoprazole 40 mg EC Tab PO SCH (17:22)
[2016-12-28] MEDS: DiphenhydrAMINE 50 mg/ml Inj IVP PRN ×6 (01:24→23:12)
[2016-12-28 06:01] LABS: SICKLE CELL SCREEN Positive (Negative)
[2016-12-28] MEDS: Pantoprazole 40 mg EC Tab PO SCH (09:56)
[2016-12-28] MEDS: Enoxaparin 40 mg Syringe SC SCH (09:56)
--- NOTE | 2016-12-28 11:08 | CP.PCM.HP ---
Past Patient History - Infectious Disease Hx of Infectious Diseases: None - Tetanus Immunizations Tetanus Immunization: Up to Date - Past Medical History & Family History Past Medical History?: Yes - Past Social History Smoking Status: marijuana - CARDIAC Other/Comment: chest pain - PULMONARY Hx Bronchitis: Yes Hx Pneumonia: Yes - HEENT Hx HEENT Problems: No - HEMATOLOGICAL/ONCOLOGICAL Hx Anemia: Yes Hx Blood Transfusions: Yes Hx Sickle Cell Disease: Yes - INTEGUMENTARY Hx Dermatological Problems: No - MUSCULOSKELETAL/RHEUMATOLOGICAL Hx Falls: No - GASTROINTESTINAL Hx Gall Bladder Disease: Yes - PSYCHIATRIC Hx Substance Use: No - SURGICAL HISTORY Hx Surgeries: Yes Hx Cholecystectomy: Yes Hx Splenectomy: Yes - ANESTHESIA Hx Anesthesia: Yes Hx Anesthesia Reactions: No Hx Malignant Hyperthermia: No Meds Allergies/Adverse Reactions: Allergies Allergy/AdvReac Type Severity Reaction Status Date / Time FISH Allergy Severe RASH Verified 12/27/16 09:25 oxycodone Allergy Severe RASH Verified 12/27/16 09:25 tramadol Allergy Severe RASH Verified 12/27/16 09:25 ketorolac Allergy Intermediate RASH Verified 12/27/16 09:25 Results - Vital Signs Recent Vital Signs: Last Vital Signs Temp 97.5 F L 12/28/16 08:13 Pulse 82 12/28/16 08:13 Resp 20 12/28/16 08:13 BP 107/70 12/28/16 08:13 Pulse Ox 97 12/28/16 08:13 - Labs Result Diagrams: 12/27/16 13:03 12/27/16 13:03
[2016-12-29] MEDS ORDERED: DiphenhydrAMINE 50 mg/ml Inj IVP SCH (01:00)
[2016-12-29 01:04] VITALS: RESP 20
[2016-12-29] MEDS: DiphenhydrAMINE 50 mg/ml Inj IVP PRN ×6 (02:16→20:39)
[2016-12-29] MEDS: Pantoprazole 40 mg EC Tab PO SCH (09:51)
[2016-12-29] MEDS: Enoxaparin 40 mg Syringe SC SCH (09:52)
--- NOTE | 2016-12-29 11:14 | CP.PCM.PN ---
Subjective - Date & Time of Evaluation Date of Evaluation: 12/29/16 Time of Evaluation: 09:20 - Subjective Subjective: clinically same Objective - Vital Signs/Intake and Output Vital Signs (last 24 hours): Temp Pulse Resp BP Pulse Ox 98.2 F 87 20 109/63 96 12/29/16 09:03 12/29/16 09:03 12/29/16 09:03 12/29/16 09:03 12/29/16 09:03 Intake and Output: 12/29/16 12/29/16 06:59 18:59 Intake Total 320 250 Balance 320 250 - Medications Medications: Current Medications Diphenhydramine HCl (Benadryl) 25 mg IVP Q3 PRN PRN Reason: PRURITUS Last Admin: 12/29/16 08:15 Dose: 25 mg Enoxaparin Sodium (Lovenox) 40 mg SC DAILY [facility] Last Admin: 12/29/16 09:52 Dose: 40 mg Folic Acid (Folic Acid) 1 mg PO DAILY [facility] Last Admin: 12/29/16 09:51 Dose: 1 mg Hydromorphone HCl (Dilaudid) 2 mg IVP Q3H PRN PRN Reason: Pain, moderate (4-7) Last Admin: 12/29/16 08:15 Dose: 2 mg Hydroxyurea (Hydrea) 500 mg PO DAILY [facility] Last Admin: 12/29/16 09:51 Dose: 500 mg Pantoprazole Sodium (Protonix Ec Tab) 40 mg PO DAILY [facility] Last Admin: 12/29/16 09:51 Dose: 40 mg - Constitutional Appears: Well - Head Exam Head Exam: ATRAUMATIC, NORMAL INSPECTION, NORMOCEPHALIC - Eye Exam Eye Exam: EOMI, Normal appearance, PERRL Pupil Exam: NORMAL ACCOMODATION, PERRL - ENT Exam ENT Exam: Mucous Membranes Moist, Normal Exam - Neck Exam Neck Exam: Full ROM, Normal Inspection. absent: Lymphadenopathy - Respiratory Exam Respiratory Exam: Decreased Breath Sounds - Cardiovascular Exam Cardiovascular Exam: REGULAR RHYTHM, +S1, +S2 - GI/Abdominal Exam GI & Abdominal Exam: Soft, Diminished Bowel Sounds - Rectal Exam Rectal Exam: Deferred
[2016-12-29] MEDS: Sodium Chloride 0.9% 1,000 ML IV SCH ×2 (11:42→22:40)
[2016-12-30] MEDS: DiphenhydrAMINE 50 mg/ml Inj IVP PRN ×8 (03:00→21:45)
[2016-12-30 08:43] LABS: BASO # 0.1 K/uL (0.0-0.2); BASO % 0.6 % (0.0-2.0); EOS # 0.4 K/uL (0.0-0.7); EOS % 2.4 % (0.0-4.0); HEMOGLOBIN 7.7 g/dL (11.0-16.0); LYMPH # 6.7 K/uL (1.0-4.3); LYMPH % 35.9 % (20.0-40.0); MEAN CELL VOLUME 100.6 fL (81.0-99.0); MEAN CORPUSCULAR HEMOGLOBIN 34.1 pg (27.0-31.0); MEAN CORPUSCULAR HGB CONC 33.9 g/dL (33.0-37.0); MEAN PLATELET VOLUME 8.3 fL (7.2-11.7); MONO # 1.1 K/uL (0.0-0.8); NEUT # 10.3 K/uL (1.8-7.0); NEUT % 55.1 % (50.0-75.0); NRBC % 1.8 % (0.0-2.0); RBC 2.27 Mil/uL (3.80-5.20); RED CELL DISTRIBUTION WIDTH 27.9 % (11.5-14.5); WHITE BLOOD COUNT 18.7 K/uL (4.8-10.8)
[2016-12-30 09:07] LABS: ALBUMIN 3.6 g/dL (3.5-5.0)
[2016-12-30 09:09] LABS: ALB/GLOB RATIO 1.3 (1.0-2.1); AST/SGOT 89 U/L (14-36); GFR AFRICAN-AMERICAN > 60; GFR NON-AFRICAN AMERICAN > 60
[2016-12-30 09:10] LABS: ALT/SGPT 103 U/L (9-52); BLOOD UREA NITROGEN 10 mg/dL (7-17); CALCIUM 8.3 mg/dl (8.6-10.4)
[2016-12-30] MEDS: Enoxaparin 40 mg Syringe SC SCH (09:16)
[2016-12-30] MEDS: Pantoprazole 40 mg EC Tab PO SCH (09:16)
[2016-12-30] MEDS: Sodium Chloride 0.9% 1,000 ML IV SCH ×2 (09:24→21:47)
--- NOTE | 2016-12-30 11:17 | CP.PCM.PN ---
Subjective - Date & Time of Evaluation Date of Evaluation: 12/30/16 Time of Evaluation: 09:00 - Subjective Subjective: clinically same Objective - Vital Signs/Intake and Output Vital Signs (last 24 hours): Temp Pulse Resp BP Pulse Ox 98.4 F 90 20 104/64 96 12/30/16 08:00 12/30/16 08:00 12/30/16 08:00 12/30/16 08:00 12/30/16 08:00 Intake and Output: 12/30/16 12/30/16 06:59 18:59 Intake Total 2360 Balance 2360 - Medications Medications: Current Medications Diphenhydramine HCl (Benadryl) 25 mg IVP Q3H PRN PRN Reason: itchiness Last Admin: 12/30/16 09:16 Dose: 25 mg Enoxaparin Sodium (Lovenox) 40 mg SC DAILY [facility] Last Admin: 12/30/16 09:16 Dose: Not Given Folic Acid (Folic Acid) 1 mg PO DAILY [facility] Last Admin: 12/30/16 09:16 Dose: 1 mg Hydromorphone HCl (Dilaudid) 2 mg IVP Q3H PRN PRN Reason: Pain, moderate (4-7) Last Admin: 12/30/16 09:17 Dose: 2 mg Hydroxyurea (Hydrea) 500 mg PO DAILY [facility] Last Admin: 12/30/16 09:16 Dose: 500 mg Sodium Chloride (Sodium Chloride 0.9%) 1,000 mls @ 100 mls/hr IV .Q10H [facility] Last Admin: 12/30/16 09:24 Dose: 100 mls/hr Pantoprazole Sodium (Protonix Ec Tab) 40 mg PO DAILY [facility] Last Admin: 12/30/16 09:16 Dose: 40 mg - Labs Labs: 12/30/16 08:23 12/30/16 08:23 - Constitutional Appears: Well - Head Exam Head Exam: ATRAUMATIC, NORMAL INSPECTION, NORMOCEPHALIC - Eye Exam Eye Exam: EOMI, Normal appearance, PERRL Pupil Exam: NORMAL ACCOMODATION, PERRL - ENT Exam ENT Exam: Mucous Membranes Moist, Normal Exam - Neck Exam Neck Exam: Full ROM, Normal Inspection. absent: Lymphadenopathy - Respiratory Exam Respiratory Exam: Decreased Breath Sounds - Cardiovascular Exam Cardiovascular Exam: REGULAR RHYTHM, +S1, +S2 - GI/Abdominal Exam GI & Abdominal Exam: Soft, Diminished Bowel Sounds - Rectal Exam Rectal Exam: Deferred
[2016-12-31] MEDS: DiphenhydrAMINE 50 mg/ml Inj IVP PRN ×8 (00:45→23:10)
[2016-12-31] MEDS: Sodium Chloride 0.9% 1,000 ML IV SCH ×3 (03:45→21:04)
[2016-12-31] MEDS: Pantoprazole 40 mg EC Tab PO SCH (09:37)
[2016-12-31] MEDS: Enoxaparin 40 mg Syringe SC SCH (09:37)
--- NOTE | 2016-12-31 17:25 | CP.PCM.PN ---
Subjective - Date & Time of Evaluation Date of Evaluation: 12/31/16 Time of Evaluation: 08:40 - Subjective Subjective: clinically same Objective - Vital Signs/Intake and Output Vital Signs (last 24 hours): Temp Pulse Resp BP Pulse Ox 98.4 F 84 20 105/63 96 12/31/16 16:00 12/31/16 16:00 12/31/16 16:00 12/31/16 16:00 12/31/16 16:00 Intake and Output: 12/31/16 12/31/16 06:59 18:59 Intake Total 2560 500 Balance 2560 500 - Medications Medications: Current Medications Diphenhydramine HCl (Benadryl) 25 mg IVP Q3H PRN PRN Reason: itchiness Last Admin: 12/31/16 16:46 Dose: 25 mg Folic Acid (Folic Acid) 1 mg PO DAILY [facility] Last Admin: 12/31/16 09:37 Dose: 1 mg Hydromorphone HCl (Dilaudid) 2 mg IVP Q3H PRN PRN Reason: Pain, moderate (4-7) Last Admin: 12/31/16 16:46 Dose: 2 mg Hydroxyurea (Hydrea) 500 mg PO DAILY [facility] Last Admin: 12/31/16 09:37 Dose: 500 mg Sodium Chloride (Sodium Chloride 0.9%) 1,000 mls @ 100 mls/hr IV .Q10H [facility] Last Admin: 12/31/16 09:40 Dose: 100 mls/hr Pantoprazole Sodium (Protonix Ec Tab) 40 mg PO DAILY [facility] Last Admin: 12/31/16 09:37 Dose: 40 mg - Labs Labs: 12/30/16 08:23 12/30/16 08:23 - Constitutional Appears: Well - Head Exam Head Exam: ATRAUMATIC, NORMAL INSPECTION, NORMOCEPHALIC - Eye Exam Eye Exam: EOMI, Normal appearance, PERRL Pupil Exam: NORMAL ACCOMODATION, PERRL - ENT Exam ENT Exam: Mucous Membranes Moist, Normal Exam - Neck Exam Neck Exam: Full ROM, Normal Inspection. absent: Lymphadenopathy - Respiratory Exam Respiratory Exam: Decreased Breath Sounds - Cardiovascular Exam Cardiovascular Exam: REGULAR RHYTHM, +S1, +S2 - GI/Abdominal Exam GI & Abdominal Exam: Soft, Diminished Bowel Sounds - Rectal Exam Rectal Exam: Deferred
[2017-01-01] MEDS: DiphenhydrAMINE 50 mg/ml Inj IVP PRN ×6 (02:20→17:39)
[2017-01-01] MEDS: Sodium Chloride 0.9% 1,000 ML IV SCH ×2 (08:24→10:51)
--- NOTE | 2017-01-01 09:55 | CP.PCM.PN ---
Subjective - Date & Time of Evaluation Date of Evaluation: 01/01/17 Time of Evaluation: 08:55 - Subjective Subjective: PGY3 Medicine Note for Dr. Tejal Louis's service: Patient seen and examined at bedside this AM. Patient reports bodyaches all over her body. Patient sitting up in bed eating breakfast. Patient seen walking around floors. Patient denies fever, chills, chest pain, SOB. Objective - Vital Signs/Intake and Output Vital Signs (last 24 hours): Temp Pulse Resp BP Pulse Ox 98.4 F 76 20 97/60 L 98 01/01/17 07:58 01/01/17 07:58 01/01/17 07:58 01/01/17 07:58 01/01/17 07:58 Intake and Output: 01/01/17 01/01/17 06:59 18:59 Intake Total 1140 Balance 1140 - Medications Medications: Current Medications Diphenhydramine HCl (Benadryl) 25 mg IVP Q3H PRN PRN Reason: itchiness Last Admin: 01/01/17 08:26 Dose: 25 mg Folic Acid (Folic Acid) 1 mg PO DAILY [facility] Last Admin: 12/31/16 09:37 Dose: 1 mg Hydromorphone HCl (Dilaudid) 2 mg IVP Q3H PRN PRN Reason: Pain, moderate (4-7) Last Admin: 01/01/17 08:25 Dose: 2 mg Hydroxyurea (Hydrea) 500 mg PO DAILY [facility] Last Admin: 12/31/16 09:37 Dose: 500 mg Sodium Chloride (Sodium Chloride 0.9%) 1,000 mls @ 100 mls/hr IV .Q10H [facility] Last Admin: 01/01/17 08:24 Dose: 100 mls/hr Pantoprazole Sodium (Protonix Ec Tab) 40 mg PO DAILY [facility] Last Admin: 12/31/16 09:37 Dose: 40 mg - Labs Labs: 12/30/16 08:23 12/30/16 08:23 - Constitutional Appears: Non-toxic, No Acute Distress - Head Exam Head Exam: NORMAL INSPECTION - Eye Exam Eye Exam: EOMI - ENT Exam ENT Exam: Mucous Membranes Moist - Respiratory Exam Respiratory Exam: Clear to Ausculation Bilateral, NORMAL BREATHING PATTERN. absent: Rales, Rhonchi, Wheezes - Cardiovascular Exam Cardiovascular Exam: REGULAR RHYTHM, +S1, +S2, Murmur. absent: Gallop, Rubs - GI/Abdominal Exam GI & Abdominal Exam: Soft, Tenderness, Normal Bowel Sounds - Extremities Exam Extremities Exam: Pedal Edema, Tenderness - Neurological Exam Neurological Exam: Alert, Awake, Oriented x3 - Psychiatric Exam Psychiatric exam: Normal Affect, Normal Mood - Skin Skin Exam: Normal Color, Warm Assessment and Plan - Assessment and Plan (Free Text) Assessment: Sickle Cell Crisis Dilaudid 2mg IVP Q3H PRN pain , mod Benadryl 25mg IVP Q3H PRN itchiness Hydroxyurea 500mg PO daily NS @100cc/hr Systolic Murmur ECHO April 2016 - EF 70%, left atrium mildly dilated, mild MR, mild to moderate TR, mild pulmonary HTN (please see full report) Prophylaxis Ambulating Protonix 40mg PO daily
[2017-01-01] MEDS: Pantoprazole 40 mg EC Tab PO SCH (10:50)
[2017-01-01 14:13] LABS: BASO # 0.1 K/uL (0.0-0.2); EOS # 0.3 K/uL (0.0-0.7); EOS % 2.1 % (0.0-4.0); MONO # 1.1 K/uL (0.0-0.8); WHITE BLOOD COUNT 13.7 K/uL (4.8-10.8)
[2017-01-01 14:20] LABS: BASO % 0.7 % (0.0-2.0); HEMOGLOBIN 7.4 g/dL (11.0-16.0); LYMPH # 5.1 K/uL (1.0-4.3); LYMPH % 37.4 % (20.0-40.0); MEAN CORPUSCULAR HGB CONC 33.5 g/dL (33.0-37.0); MEAN PLATELET VOLUME 7.9 fL (7.2-11.7); MONO % 8.1 % (0.0-10.0); NEUT # 7.1 K/uL (1.8-7.0); NEUT % 51.7 % (50.0-75.0); NRBC % 2.2 % (0.0-2.0); RBC 2.1 Mil/uL (3.80-5.20); RED CELL DISTRIBUTION WIDTH 32.2 % (11.5-14.5)
[2017-01-01 14:24] LABS: MEAN CELL VOLUME 104.3 fL (81.0-99.0)
[2017-01-01 14:27] LABS: ALBUMIN 3.6 g/dL (3.5-5.0)
[2017-01-01 14:30] LABS: GFR AFRICAN-AMERICAN > 60; GFR NON-AFRICAN AMERICAN > 60
[2017-01-01 14:31] LABS: ALB/GLOB RATIO 1.3 (1.0-2.1); ALT/SGPT 130 U/L (9-52); AST/SGOT 105 U/L (14-36); BLOOD UREA NITROGEN 7 mg/dL (7-17); CALCIUM 8.2 mg/dl (8.6-10.4)
[2017-01-01 15:41] VITALS: BP 101/66; PULSE 78; TEMP 98.5; O2SAT 95
== END 2017-01-01 19:00 | disposition home or self-care (01) | DRG 395 ==
LOC: C.ER 09:14 → C.9E 14:56 → C.3T 15:48 → OBSVTOIN 12-29 11:41
PROVIDERS: ADMIT Internal Medicine Nephrology; ATTEND Internal Medicine Nephrology
DX: D57.00 Hb-SS disease with crisis, unspecified (principal); I27.2 Other secondary pulmonary hypertension; R01.1 Cardiac murmur, unspecified; Z90.49 Acquired absence of other specified parts of digestive tract; Z90.81 Acquired absence of spleen

== ENCOUNTER 2017-01-03 08:01 | Observation (INO) | payer MEDICAID ==
[2017-01-03 08:02] VITALS: BMI 24.5
[2017-01-03 08:07] VITALS: RESP 16; TEMP 98.5
[2017-01-03] MEDS ORDERED: DiphenhydrAMINE 50 mg/ml Inj IVP STA (08:41)
--- NOTE | 2017-01-03 08:42 | C.PDOC ---
History Of Present Illness The patient, a 31 y/o female with PMHx of sickle cell disease and frequent ED visit for narcotic pain medications, presents to the ED for evaluation of generalized body pain which began earlier today. Patient states she has "pain everywhere, describes her pain as 10/10 in severity. She was last seen in ED on 12/30/16 when was admitted to hospital and subsequently discharged on 01/01/17. Otherwise, pt denies fever, chills, denies headache, dizziness, vertigo, SOB, dyspnea, diaphoresis, palpitation, V/D, UTI sx. Ambulate to ED for evaluation, appears not in any apparent distress, smiling. Time Seen by Provider: 01/03/17 08:10 Chief Complaint (Nursing): Pain, Chronic History Per: Patient History/Exam Limitations: no limitations Onset/Duration Of Symptoms: Hrs Current Symptoms Are (Timing): Still Present Pain Scale Rating Of: 10 Location: GENERALIZED Reports Recently: Seen In ED (01/01/17) Past Medical History Reviewed: Historical Data, Nursing Documentation, Vital Signs Vital Signs: Last Vital Signs Temp 98.5 F 01/03/17 08:06 Pulse 86 01/03/17 10:01 Resp 16 01/03/17 10:01 BP 123/87 01/03/17 10:01 Pulse Ox 98 01/03/17 11:51 - Medical History PMH: Anemia, Bronchitis, Gall Bladder Disease, Pneumonia, Sickle Cell Disease Surgical History: Cholecystectomy - [facility] Procedures INFLUENZA VACCINATION (03/16/12) INJECT/INFUSE ELECTROLYT (09/07/13) INJECT/INFUSE NEC (01/25/14) INSERTION OF INFUSION DEV INTO SUP VENA CAVA, PERC APPROACH (11/19/16) NEBULIZER THERAPY (12/02/13) PACKED CELL TRANSFUSION (02/12/15) REMOVAL OF VAD FROM TRUNK SUBCU/FASCIA, OPEN APPROACH (04/15/16) TRANSFUSE NONAUT RED BLOOD CELLS IN PERIPH VEIN, PERC (04/15/16) VACCINATION NEC (08/22/13) Family History: States: No Known Family Hx - Social History Hx Tobacco Use: No Hx Alcohol Use: No Hx Substance Use: No - Immunization History Hx Tetanus Toxoid Vaccination: Yes Hx Influenza Vaccination: Yes (2015) Hx Pneumococcal Vaccination: Yes (2014) Review Of Systems Except As Marked, All Systems Reviewed And Found Negative. Constitutional: Positive for: Malaise. Negative for: Fever, Chills Cardiovascular: Negative for: Chest Pain Respiratory: Negative for: Shortness of Breath Gastrointestinal: Positive for: Nausea, Vomiting Neurological: Negative for: Weakness, Numbness, Headache, Dizziness Physical Exam - Physical Exam Appears: Non-toxic, No Acute Distress Skin: Warm, Dry, No Rash, No Ecchymosis Head: Normacephalic Nose: No Flaring Oral Mucosa: Moist, No Drooling Tongue: Normal Appearing Lips: Normal Appearing Throat: No Erythema, No Exudate, No Drooling, Other (Uvula midline, no edema.) Neck: Trachea Midline, Supple Cardiovascular: Rhythm Regular, No Murmur Respiratory: No Decreased Breath Sounds, No Accessory Muscle Use, No Stridor, No Wheezing Gastrointestinal/Abdominal: Soft, No Tenderness, No Distention, No Guarding Back: No CVA Tenderness Extremity: Normal ROM, No Tenderness, No Pedal Edema Neurological/Psych: Oriented x3, Normal Speech ED Course And Treatment - Laboratory Results Result Diagrams: 01/03/17 09:01 01/03/17 09:01 Lab Interpretation: No Acute Changes (compare to previous results from 01/01/17 and appears improved) ECG: Interpreted By Me, Viewed By Me ECG Rhythm: Sinus Rhythm ECG Interpretation: Normal Interpretation Of ECG: SR@80/min, NAD, T wave inversion in III, no acute ST-T changes. Compare to old study and appears without new changes. O2 Sat by Pulse Oximetry: 98 (on RA) Pulse Ox Interpretation: Normal ED OBSERVATION Discharge: Yes Date of observation admission: 01/03/17 Time of observation admission: 08:20 - Observation admission statement Patient is being placed in observation because:: Generalized body pain, hx of sickle cell anemia - Goals of Observation Goals of observation are:: Diagnostics, hydration, O2 supplement, sx tx, re-eval - Progress Note Progress Note: 01/03/17 AT 9:20, pt resting comfortably, not in any apparent distress. At 10:47, diagnostics review and appears at baseline, no acute changes noted. Ambulatory in ED, tolerate Po well in ED. At 11:44, pt is awake, comfortable, walking in ED with stable gait, not in any apparent distress. Afebrile, hemodynamicaly stable. NOn-toxic. Pt reports, moderate improvement in pain after ED tx. PulsEOx 99% rA Neck: Supple ENT: no acute findings Lungs: CTA B/L, BS equal B/L. CVS: (+)S1S2, reg. Abd: benign, (-) guarding, (-) rebound. Back: (-) CVA Tenderness. Case discussed with PMD , who discharge pt on 01/01/17, diagnostics review and appears at baseline. As per , no pain Rx given. Pt was referred to PMD and PM. As per , pt was in [facility] yesterday due to same complaints. Pt exhibit drug seeking behaviour. Results discussed with pt. Pt advised to F/U wit PMD, PM and/or detox for further pain control. Pt understand and agrees with discharges. Disposition Counseled Patient/Family Regarding: Studies Performed, Diagnosis, Need For Followup - Disposition Disposition: HOME/ ROUTINE Disposition Time: 11:54 Condition: STABLE - Clinical Impression Clinical Impression: Sickle cell disease, Chronic pain, Opioid abuse
[2017-01-03 09:10] LABS: BASO # 0.1 K/uL (0.0-0.2); BASO % 0.6 % (0.0-2.0); EOS # 0.1 K/uL (0.0-0.7); EOS % 0.6 % (0.0-4.0); HEMOGLOBIN 8.7 g/dL (11.0-16.0); LYMPH # 2.9 K/uL (1.0-4.3); LYMPH % 20.4 % (20.0-40.0); MEAN CORPUSCULAR HEMOGLOBIN 35.5 pg (27.0-31.0); MONO # 1.2 K/uL (0.0-0.8); MONO % 8.2 % (0.0-10.0); NEUT # 9.9 K/uL (1.8-7.0); NEUT % 70.2 % (50.0-75.0); NRBC % 1.9 % (0.0-2.0); RBC 2.45 Mil/uL (3.80-5.20); RED CELL DISTRIBUTION WIDTH 34.1 % (11.5-14.5); WHITE BLOOD COUNT 14.1 K/uL (4.8-10.8)
[2017-01-03 09:21] LABS: SQUAMOUS EPITHIAL 8 /hpf (0-5); URINE BILIRUBIN NEGATIVE (NEGATIVE); URINE BLOOD NEGATIVE (NEGATIVE); URINE CLARITY Hazy (Clear); URINE COLOR Yellow (YELLOW); URINE GLUCOSE (UA) NORMAL (Normal); URINE LEUKOCYTE ESTERASE NEG Leu/uL (Negative); URINE NITRATE NEGATIVE (NEGATIVE); URINE PROTEIN NEGATIVE (NEGATIVE)
[2017-01-03 09:22] LABS: ALB/GLOB RATIO 1.2 (1.0-2.1); ALBUMIN 3.9 g/dL (3.5-5.0); ALT/SGPT 102 U/L (9-52); AST/SGOT 59 U/L (14-36); BLOOD UREA NITROGEN 14 mg/dL (7-17); CALCIUM 9.1 mg/dl (8.6-10.4); GFR AFRICAN-AMERICAN > 60; GFR NON-AFRICAN AMERICAN > 60; MEAN CELL VOLUME 107.7 fL (81.0-99.0)
[2017-01-03 09:23] LABS: HCG,QUALITATIVE URINE NEGATIVE (NEGATIVE)
[2017-01-03 09:30] LABS: CK-MB 0.36 ng/mL (0.0-3.38)
[2017-01-03] MEDS ORDERED: DiphenhydrAMINE 50 mg/ml Inj ONE (09:33)
[2017-01-03] MEDS ORDERED: DiphenhydrAMINE 50 mg/ml Inj IM STA (09:42)
[2017-01-03 12:03] VITALS: BP 127/85; PULSE 87; O2SAT 100
== END 2017-01-03 11:51 | disposition home or self-care (01) ==
LOC: C.ER 08:01 → C.9OBSV 08:20
PROVIDERS: ADMIT Emergency Medicine; ATTEND Emergency Medicine
DX: D57.1 Sickle-cell disease without crisis (principal); G89.29 Other chronic pain; F11.10 Opioid abuse, uncomplicated; Z90.49 Acquired absence of other specified parts of digestive tract
CPT/HCPCS: 36415; 80053; 81001; 82553; 84703; 85025; 85044; 96372; 99285; G0378; J1200

== ENCOUNTER 2017-01-06 08:28 | Observation (INO) | payer MEDICAID ==
[2017-01-06 08:28] VITALS: BMI 24.5
--- NOTE | 2017-01-06 09:22 | C.PDOC ---
History Of Present Illness 31 y/o female with past history of sickle cell disease, presents to ED with c/o generalized body pain. Patient with multiple past ER visits for similar complaints. Notes generalized body pain has been intermittent since Thursday. Patient also reports notes sharp sternal chest pain since Thursday (3 days ago) . On 01/03, patient was seen and treated in this ER for similar, discharged home. Denies fever, chills, headache, dizziness, SOB, cough, dyspnea, palpitations, nausea, vomiting, diarrhea. PMD Ariel Louis Time Seen by Provider: 01/06/17 08:53 Chief Complaint (Nursing): Pain, Chronic History Per: Patient History/Exam Limitations: no limitations Onset/Duration Of Symptoms: Days Current Symptoms Are (Timing): Still Present Recent travel outside of the [place]: No Past Medical History Reviewed: Historical Data, Nursing Documentation, Vital Signs Vital Signs: Last Vital Signs Temp 98.1 F 01/06/17 11:45 Pulse 80 01/06/17 11:45 Resp 16 01/06/17 11:45 BP 107/68 01/06/17 11:45 Pulse Ox 98 01/06/17 15:06 - Medical History PMH: Anemia, Bronchitis, Gall Bladder Disease, Pneumonia, Sickle Cell Disease Surgical History: Cholecystectomy - [facility] Procedures INFLUENZA VACCINATION (03/16/12) INJECT/INFUSE ELECTROLYT (09/07/13) INJECT/INFUSE NEC (01/25/14) INSERTION OF INFUSION DEV INTO SUP VENA CAVA, PERC APPROACH (11/19/16) NEBULIZER THERAPY (12/02/13) PACKED CELL TRANSFUSION (02/12/15) REMOVAL OF VAD FROM TRUNK SUBCU/FASCIA, OPEN APPROACH (04/15/16) TRANSFUSE NONAUT RED BLOOD CELLS IN PERIPH VEIN, PERC (04/15/16) VACCINATION NEC (08/22/13) Family History: States: Unknown Family Hx - Social History Hx Tobacco Use: No Hx Alcohol Use: No Hx Substance Use: No - Immunization History Hx Tetanus Toxoid Vaccination: Yes Hx Influenza Vaccination: Yes (2015) Hx Pneumococcal Vaccination: Yes (2014) Review Of Systems Except As Marked, All Systems Reviewed And Found Negative. Constitutional: Positive for: Malaise. Negative for: Fever, Chills Cardiovascular: Negative for: Chest Pain Respiratory: Negative for: Cough, Shortness of Breath, Wheezing Gastrointestinal: Negative for: Nausea, Vomiting, Abdominal Pain Genitourinary: Positive for: Dysuria Skin: Negative for: Rash Neurological: Negative for: Headache, Dizziness Physical Exam - Physical Exam Appears: Non-toxic, No Acute Distress, Other (comfortable in bed, using her cell phone, smiling) Skin: Warm, Dry Head: Atraumatic, Normacephalic Eye(s): bilateral: Normal Inspection, PERRL, EOMI Oral Mucosa: Moist Chest: Symmetrical, Tenderness (mild sternal ) Cardiovascular: Rhythm Regular Respiratory: Normal Breath Sounds, No Rales, No Rhonchi, No Wheezing Gastrointestinal/Abdominal: Soft, No Tenderness, No Guarding, No Rebound Back: Normal Inspection Extremity: Normal ROM, Capillary Refill (< 2 sec.) Extremity: Bilateral: Normal Color And Temperature Neurological/Psych: Oriented x3, Normal Speech, Normal Cognition ED Course And Treatment - Laboratory Results Result Diagrams: 01/06/17 09:39 01/06/17 09:39 ECG: Interpreted By Sd ECG Rhythm: Sinus Rhythm ECG Interpretation: Normal Rate From EC O2 Sat by Pulse Oximetry: 98 Pulse Ox Interpretation: Normal - Radiology CXR: Interpreted by Sd CXR Interpretation: Yes: No Acute Disease. No: Infiltrates, Cardiomegaly Medical Decision Making Medical Decision Making: Prior Visits Reviewed: On 01/03 seen in ER for sickle cell disease, white count of 14, hgb 8.7, hct 26, retic count 20. Plan: Benadryl, Dilaudid, Reglan, EKG, CxR labs ordered. ED OBSERVATION Date of observation admission: 01/06/17 Time of observation admission: 09:15 - Observation admission statement Patient is being placed in observation because:: sickle cell crisis - Goals of Observation Goals of observation are:: to monitor and observe pt's signs and symptoms - Progress Note Progress Note: 01/06/17 10:00 On re-evaluation, pt is awake, comfortable, laying in bed using her cellphone, not in any apparent distress. Afebrile, hemodynamicaly stable. Pt appears non- toxic. Pt reports, moderate improvement in pain. 01/06/17 11:15 Pt's hgb today is 7.2, which is much lower than her prior labs, pt normally trends between 7.5-8.7. Her retic count is 10, which is much improved. Call placed to her pmd. Case d/w Dr. Ariel Louis, is requesting for inpt observation for transfusion. Orders placed for 2 units PRBC for transfusion. Bridge orders placed. 2 units of PRBCs ordered. On re-evaluation, pt is ambulatory in the ER, she reports of continued pain at this time. Another dose of po dilaudid with po zofran ordered. Disposition - Disposition Disposition: HOSPITALIZED Disposition Time: 11:11 Condition: STABLE - Clinical Impression Clinical Impression: Sickle cell disease, Anemia - PA / SQL SERVER ARCHITECT / Resident Statement MD/DO has reviewed & agrees with the documentation as recorded. () - Scribe Statement The provider has reviewed the documentation as recorded by the Rosa Reyes All medical record entries made by the Rosa were at my direction and personally dictated by me. I have reviewed the chart and agree that the record accurately reflects my personal performance of the history, physical exam, medical decision making, and the department course for this patient. I have also personally directed, reviewed, and agree with the discharge instructions and disposition.
[2017-01-06 09:43] LABS: BASO # 0.1 K/uL (0.0-0.2); BASO % 0.7 % (0.0-2.0); EOS # 0.1 K/uL (0.0-0.7); EOS % 0.8 % (0.0-4.0); HEMATOCRIT 20.8 % (34.0-47.0); LYMPH # 3.6 K/uL (1.0-4.3); LYMPH % 22.4 % (20.0-40.0); MEAN CORPUSCULAR HEMOGLOBIN 34.7 pg (27.0-31.0); MEAN CORPUSCULAR HGB CONC 34.4 g/dL (33.0-37.0); MONO # 1.4 K/uL (0.0-0.8); MONO % 8.5 % (0.0-10.0); NRBC % 0.8 % (0.0-2.0); RED CELL DISTRIBUTION WIDTH 28.5 % (11.5-14.5); RETIC% 10.7 % (0.5-1.5); WHITE BLOOD COUNT 15.9 K/uL (4.8-10.8)
[2017-01-06 09:45] LABS: MEAN CELL VOLUME 100.9 fL (81.0-99.0); RBC URINE < 1 /hpf (0-3); URINE BACTERIA RARE (<OCC); URINE BILIRUBIN NEGATIVE (NEGATIVE); URINE BLOOD NEGATIVE (NEGATIVE); URINE COLOR Yellow (YELLOW); URINE GLUCOSE (UA) NORMAL (Normal); URINE KETONE NEGATIVE (NEGATIVE); URINE LEUKOCYTE ESTERASE NEG Leu/uL (Negative); URINE PROTEIN NEGATIVE (NEGATIVE); URINE UROBILINOGEN NORMAL mg/dL (0.2-1.0); WBC URINE < 1 /hpf (0-5)
[2017-01-06 09:52] LABS: CHLORIDE 102 mmol/L (98-107); POTASSIUM 4.3 mmol/L (3.6-5.2); SODIUM 141 mmol/L (132-148)
[2017-01-06 09:54] LABS: GFR AFRICAN-AMERICAN > 60
[2017-01-06 09:55] LABS: ALB/GLOB RATIO 1.3 (1.0-2.1); ALKALINE PHOSPHATASE 121 U/L (38-126); ALT/SGPT 75 U/L (9-52); AST/SGOT 54 U/L (14-36); BILIRUBIN,TOTAL 2.5 mg/dL (0.2-1.3); BLOOD UREA NITROGEN 13 mg/dL (7-17); CARBON DIOXIDE 25 mmol/L (22-30); GLUCOSE,RANDOM 92 mg/dL (65-105); TOTAL PROTEIN 7.1 g/dL (6.3-8.3)
--- NOTE | 2017-01-06 10:49 | RAD ---
PROCEDURE: CHEST RADIOGRAPH, 1 VIEW HISTORY: Chest pain COMPARISON: 11/19/2016 FINDINGS: LUNGS: Clear. PLEURA: No pneumothorax or pleural fluid seen. CARDIOVASCULAR: Normal. OSSEOUS STRUCTURES: No significant abnormalities. VISUALIZED UPPER ABDOMEN: Normal. OTHER FINDINGS: None. IMPRESSION: No active disease.
[2017-01-06] MEDS ORDERED: Lidocaine 2% Inj (20ml) ONE (12:31)
--- NOTE | 2017-01-06 12:41 | PCM.SURG1 ---
Surgeon's Initial Post Op Note - Surgeon's Notes Surgeon: Diaz Wisdom MD Compressor Technician: None Type of Anesthesia: Local Pre-Operative Diagnosis: Sickle cell disease Operative Findings: Patent right basilic vein. Post-Operative Diagnosis: Sickle cell disease Operation Performed: Single lumen picc placement right basilic vein, 33 cm. Tip in SVC. Specimen/Specimens Removed: None Estimated Blood Loss: EBL {In ML}: 2 Blood Products Given: N/A Drains Used: No Drains Post-Op Condition: Fair Date of Surgery/Procedure: 01/06/17 Time of Surgery/Procedure: 12:35
[2017-01-06] MEDS: DiphenhydrAMINE 50 mg/ml Inj IVP PRN ×3 (14:05→22:08)
[2017-01-06] MEDS: HYDROmorphone 1 mg/ml ISec IVP PRN ×3 (14:06→22:09)
[2017-01-06] MEDS: Sodium Chloride 0.9% 1,000 ML IV SCH ×2 (14:17→23:30)
--- NOTE | 2017-01-06 17:16 | CP.PCM.HP ---
History of Present Illness - History of Present Illness History of Present Illness: 31 years old female patient with past medical history of anemia, pneumonia, sickle cell disease, bronchitis, gallbladder disease presented to the emergency department with complaint of intermittent generalized body ache since last 3 days. Patient has a history of multiple past ER visits for similar pain. Last ER visit was on 01/03 for the similar kind of pain treated in the ER. No fever, nausea, chills, vomiting. No shortness of breath, cough, dizziness, palpitation Past surgical history of cholecystectomy Started on IV fluids, blood workup done and admitted. Present on Admission - Present on Admission Any Indicators Present on Admission: No Past Patient History - Infectious Disease Hx of Infectious Diseases: None - Tetanus Immunizations Tetanus Immunization: Up to Date - Past Medical History & Family History Past Medical History?: Yes - Past Social History Smoking Status: Never Smoked - PULMONARY Hx Bronchitis: Yes Hx Pneumonia: Yes - HEENT Hx HEENT Problems: No - HEMATOLOGICAL/ONCOLOGICAL Hx Anemia: Yes Hx Sickle Cell Disease: Yes - INTEGUMENTARY Hx Dermatological Problems: No - GASTROINTESTINAL Hx Gall Bladder Disease: Yes - PSYCHIATRIC Hx Substance Use: No - SURGICAL HISTORY Hx Cholecystectomy: Yes - ANESTHESIA Hx Anesthesia: Yes Hx Anesthesia Reactions: No Hx Malignant Hyperthermia: No Meds Allergies/Adverse Reactions: Allergies Allergy/AdvReac Type Severity Reaction Status Date / Time FISH Allergy Severe RASH Verified 02/06/17 09:04 oxycodone Allergy Severe RASH Verified 02/06/17 09:04 tramadol Allergy Severe RASH Verified 02/06/17 09:04 ketorolac Allergy Intermediate RASH Verified 02/06/17 09:04 Physical Exam - Constitutional Appears: Well - Head Exam Head Exam: ATRAUMATIC, NORMAL INSPECTION, NORMOCEPHALIC - Eye Exam Eye Exam: EOMI, Normal appearance, PERRL Pupil Exam: NORMAL ACCOMODATION, PERRL - ENT Exam ENT Exam: Mucous Membranes Moist, Normal Exam - Neck Exam Neck exam: Positive for: Normal Inspection - Respiratory Exam Respiratory Exam: Decreased Breath Sounds - Cardiovascular Exam Cardiovascular Exam: REGULAR RHYTHM, +S1, +S2 - GI/Abdominal Exam GI & Abdominal Exam: Diminished Bowel Sounds, Soft - Rectal Exam Rectal Exam: Deferred Results - Vital Signs Recent Vital Signs: Last Vital Signs Temp 98.1 F 01/06/17 11:45 Pulse 80 01/06/17 11:45 Resp 16 01/06/17 11:45 BP 107/68 01/06/17 11:45 Pulse Ox 98 01/06/17 15:06 - Labs Result Diagrams: 01/07/17 14:29 01/06/17 09:39 Labs: Laboratory Results - last 24 hr 01/06/17 01/06/17 01/06/17 09:39 09:39 09:39 WBC 15.9 H RBC 2.06 L Hgb 7.2 L Hct 20.8 L MCV 100.9 H D MCH 34.7 H MCHC 34.4 RDW 28.5 H Plt Count 378 MPV 8.0 Neut % (Auto) 67.6 Lymph % (Auto) 22.4 [place] % (Auto) 8.5 Eos % (Auto) 0.8 Baso % (Auto) 0.7 Neut # 10.8 H Lymph # 3.6 [place] # 1.4 H Eos # 0.1 Baso # 0.1 Retic Count 10.7 H D Sodium 141 Potassium 4.3 Chloride 102 Carbon Dioxide 25 Anion Gap 18 BUN 13 Creatinine 0.4 L Est GFR ( Amer) > 60 Est GFR (Non-Af Amer) > 60 Random Glucose 92 Calcium 9.0 Total Bilirubin 2.5 H AST 54 H ALT 75 H D Alkaline Phosphatase 121 Total Protein 7.1 Albumin 4.0 Globulin 3.1 Albumin/Globulin Ratio 1.3 Urine Color Yellow Urine Clarity Clear Urine pH 5.0 Ur Specific [place] 1.010 Urine Protein Negative Urine Glucose (UA) Normal Urine Ketones Negative Urine Blood Negative Urine Nitrate Negative Urine Bilirubin Negative Urine Urobilinogen Normal Ur Leukocyte Esterase Neg Urine WBC (Auto) < 1 Urine RBC (Auto) < 1 Ur Squamous Epith Cells 4 Urine Bacteria Rare Blood Type Antibody Screen 01/06/17 14:16 WBC RBC Hgb Hct MCV MCH MCHC RDW Plt Count MPV Neut % (Auto) Lymph % (Auto) [place] % (Auto) Eos % (Auto) Baso % (Auto) Neut # Lymph # [place] # Eos # Baso # Retic Count Sodium Potassium Chloride Carbon Dioxide Anion Gap BUN Creatinine Est GFR ( Amer) Est GFR (Non-Af Amer) Random Glucose Calcium Total Bilirubin AST ALT Alkaline Phosphatase Total Protein Albumin Globulin Albumin/Globulin Ratio Urine Color Urine Clarity Urine pH Ur Specific [place] Urine Protein Urine Glucose (UA) Urine Ketones Urine Blood Urine Nitrate Urine Bilirubin Urine Urobilinogen Ur Leukocyte Esterase Urine WBC (Auto) Urine RBC (Auto) Ur Squamous Epith Cells Urine Bacteria Blood Type A POSITIVE Antibody Screen Negative Assessment & Plan (1) Abdominal pain Status: Acute (2) Abdominal pain Status: Acute (3) Abnormal LFTs Status: Acute (4) Anemia Status: Acute (5) Anemia Status: Acute (6) Cannabis use disorder, mild, abuse Status: Acute (7) Chronic abdominal pain Status: Acute (8) Chronic pain Status: Acute (9) Chronic pain disorder Status: Acute (10) Contusion of back Status: Acute (11) Contusion of hip, right Status: Acute (12) Dehydration Status: Acute (13) Drug-seeking behavior Status: Acute (14) Dysfunctional uterine bleeding Status: Acute (15) Elevated LFTs Status: Acute (16) Generalized pain Status: Acute (17) Headache Status: Acute (18) Hordeolum externum (stye) Status: Acute (19) Iron overload due to repeated red blood cell transfusions Status: Acute (20) Leukocytosis Status: Acute (21) Opioid abuse Status: Acute (22) Pain Status: Acute (23) Pain Status: Acute (24) Pain disorder Status: Acute (25) Pneumonia Status: Acute (26) Prophylactic measure Status: Acute (27) Sickle cell anemia Status: Acute (28) Sickle cell crisis Status: Acute (29) Sickle cell crisis Status: Acute (30) Sickle cell disease Status: Acute (31) Sickle cell pain crisis Status: Acute (32) Sickle cell pain crisis Status: Acute (33) Sickle cell trait Status: Acute (34) Sickle-cell disease with pain Status: Acute (35) 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
[2017-01-06 17:21] VITALS: RESP 20
[2017-01-07] MEDS: HYDROmorphone 1 mg/ml ISec IVP PRN (02:10)
[2017-01-07] MEDS: DiphenhydrAMINE 50 mg/ml Inj IVP PRN ×4 (02:10→15:46)
[2017-01-07] MEDS: Sodium Chloride 0.9% 1,000 ML IV SCH ×2 (04:00→10:32)
--- NOTE | 2017-01-07 10:32 | CP.PCM.PN ---
Subjective - Date & Time of Evaluation Date of Evaluation: 01/07/17 Time of Evaluation: 09:40 - Subjective Subjective: clinically same Objective - Vital Signs/Intake and Output Vital Signs (last 24 hours): Temp Pulse Resp BP Pulse Ox 98.6 F 79 20 112/76 96 01/07/17 07:24 01/07/17 07:24 01/07/17 07:24 01/07/17 07:24 01/07/17 07:24 Intake and Output: 01/07/17 01/07/17 06:59 18:59 Intake Total 1000 Balance 1000 - Medications Medications: Current Medications Diphenhydramine HCl (Benadryl) 25 mg IVP Q4 PRN PRN Reason: Anxiety Last Admin: 01/07/17 06:52 Dose: 25 mg Folic Acid (Folic Acid) 1 mg PO DAILY [facility] Heparin Sodium (Porcine) (Heparin) 5,000 units SC Q12 TALIA Hydromorphone HCl (Dilaudid) 2 mg IVP Q4H PRN PRN Reason: Pain, severe (8-10) Last Admin: 01/07/17 06:52 Dose: 2 mg Hydroxyurea (Hydrea) 500 mg PO TID TALIA Last Admin: 01/06/17 18:12 Dose: 500 mg Sodium Chloride (Sodium Chloride 0.9%) 1,000 mls @ 100 mls/hr IV .Q10H TALIA Last Admin: 01/07/17 04:00 Dose: 100 mls/hr - Labs Labs: 01/06/17 09:39 01/06/17 09:39 - Constitutional Appears: Well - Head Exam Head Exam: ATRAUMATIC, NORMAL INSPECTION, NORMOCEPHALIC - Eye Exam Eye Exam: EOMI, Normal appearance, PERRL Pupil Exam: NORMAL ACCOMODATION, PERRL - ENT Exam ENT Exam: Mucous Membranes Moist, Normal Exam - Neck Exam Neck Exam: Full ROM, Normal Inspection. absent: Lymphadenopathy - Respiratory Exam Respiratory Exam: Decreased Breath Sounds - Cardiovascular Exam Cardiovascular Exam: REGULAR RHYTHM, +S1, +S2 - GI/Abdominal Exam GI & Abdominal Exam: Soft, Diminished Bowel Sounds - Rectal Exam Rectal Exam: Deferred Assessment and Plan (1) Abdominal pain Status: Acute (2) Abdominal pain Status: Acute (3) Abnormal LFTs Status: Acute (4) Anemia Status: Acute (5) Anemia Status: Acute (6) Cannabis use disorder, mild, abuse Status: Acute (7) Chronic abdominal pain Status: Acute (8) Chronic pain Status: Acute (9) Chronic pain disorder Status: Acute (10) Contusion of back Status: Acute (11) Contusion of hip, right Status: Acute (12) Dehydration Status: Acute (13) Drug-seeking behavior Status: Acute (14) Dysfunctional uterine bleeding Status: Acute (15) Elevated LFTs Status: Acute (16) Generalized pain Status: Acute (17) Headache Status: Acute (18) Hordeolum externum (stye) Status: Acute (19) Iron overload due to repeated red blood cell transfusions Status: Acute (20) Leukocytosis Status: Acute (21) Opioid abuse Status: Acute (22) Pain Status: Acute (23) Pain Status: Acute (24) Pain disorder Status: Acute (25) Pneumonia Status: Acute (26) Prophylactic measure Status: Acute (27) Sickle cell anemia Status: Acute (28) Sickle cell crisis Status: Acute (29) Sickle cell crisis Status: Acute (30) Sickle cell disease Status: Acute (31) Sickle cell pain crisis Status: Acute (32) Sickle cell pain crisis Status: Acute (33) Sickle cell trait Status: Acute (34) Sickle-cell disease with pain Status: Acute (35) 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
[2017-01-07 14:47] LABS: BASO # 0.1 K/uL (0.0-0.2); BASO % 0.6 % (0.0-2.0); EOS # 0.4 K/uL (0.0-0.7); HEMATOCRIT 23.6 % (34.0-47.0); LYMPH # 6.1 K/uL (1.0-4.3); LYMPH % 32.9 % (20.0-40.0); MEAN CORPUSCULAR HEMOGLOBIN 32.5 pg (27.0-31.0); MEAN CORPUSCULAR HGB CONC 33.7 g/dL (33.0-37.0); MEAN PLATELET VOLUME 8.6 fL (7.2-11.7); MONO # 1.8 K/uL (0.0-0.8); MONO % 9.7 % (0.0-10.0); NRBC % 0.7 % (0.0-2.0); RED CELL DISTRIBUTION WIDTH 28.9 % (11.5-14.5); WHITE BLOOD COUNT 18.5 K/uL (4.8-10.8)
[2017-01-07 14:49] LABS: MEAN CELL VOLUME 96.5 fL (81.0-99.0)
[2017-01-07 16:01] VITALS: BP 133/88; PULSE 91; TEMP 99; O2SAT 95
--- NOTE | 2017-01-07 16:52 | CP.PCM.PN ---
Subjective - Date & Time of Evaluation Date of Evaluation: 01/07/17 Time of Evaluation: 11:00 - Subjective Subjective: Alert, oriented, no sob or chest pains. Objective - Vital Signs/Intake and Output Vital Signs (last 24 hours): Temp Pulse Resp BP Pulse Ox 99.0 F 91 H 20 133/88 95 01/07/17 15:00 01/07/17 15:00 01/07/17 15:00 01/07/17 15:00 01/07/17 15:00 Intake and Output: 01/07/17 01/07/17 06:59 18:59 Intake Total 1000 500 Balance 1000 500 - Medications Medications: Current Medications Diphenhydramine HCl (Benadryl) 25 mg IVP Q4 PRN PRN Reason: Anxiety Last Admin: 01/07/17 15:46 Dose: 25 mg Folic Acid (Folic Acid) 1 mg PO DAILY [facility] Last Admin: 01/07/17 10:31 Dose: 1 mg Heparin Sodium (Porcine) (Heparin) 5,000 units SC Q12 [facility] Last Admin: 01/07/17 10:31 Dose: 5,000 units Hydromorphone HCl (Dilaudid) 2 mg IVP Q4H PRN PRN Reason: Pain, severe (8-10) Last Admin: 01/07/17 15:47 Dose: 2 mg Hydroxyurea (Hydrea) 500 mg PO TID [facility] Last Admin: 01/07/17 14:41 Dose: 500 mg Sodium Chloride (Sodium Chloride 0.9%) 1,000 mls @ 100 mls/hr IV .Q10H [facility] Last Admin: 01/07/17 10:32 Dose: Not Given - Labs Labs: 01/07/17 14:29 01/06/17 09:39 Assessment and Plan - Assessment and Plan (Free Text) Assessment: Patient is seen and examined. Alert, ambulating denies acute pain. Expressed that she would like to go home today. Hemoglobin improved to 7.9 today. No sob or chest pains. D/W DR Ariel Louis , discharge plan for home today. Advised to f/u with PMD in 1 week or as needed.
--- NOTE | 2017-01-09 13:13 | CARD ---
APPROVED REPORT EKG Measurement Heart [id number] <Conclusion> Normal sinus rhythm Normal ECG
== END 2017-01-07 16:45 | disposition home or self-care (01) ==
LOC: C.ER 08:28 → C.9OBSV 09:15 → C.9E 12:21 → C.3T 12:33
PROVIDERS: ADMIT Internal Medicine Nephrology; ATTEND Internal Medicine Nephrology
DX: D57.1 Sickle-cell disease without crisis (principal); Z87.01 Personal history of pneumonia (recurrent); Z90.49 Acquired absence of other specified parts of digestive tract; J40 Bronchitis, not specified as acute or chronic; Z88.6 Allergy status to analgesic agent; Z88.5 Allergy status to narcotic agent; Z91.013 Allergy to seafood
CPT/HCPCS: 36415; 36430; 36569; 71010; 80053; 81001; 84703; 85025; 85044; 86850; 86900; 86920; 87086; 99285; G0378; J1170; J1200; J1644; J7040; P9051

== ENCOUNTER 2017-01-20 08:10 | Emergency (ER) | payer MEDICAID ==
[2017-01-20 08:11] VITALS: BMI 24.5
[2017-01-20 08:17] VITALS: RESP 20; TEMP 97.9
--- NOTE | 2017-01-20 08:59 | C.PDOC ---
History Of Present Illness 31 y/o female with scd well known to this ED, presents with sternal chest pain and all over body pain since last week, that is just getting worse. pt is not taking any analgesics at home. pt sts pain in chest is in sternum, typical of her usual crisis pain, as is pain all over rest of her body. pt has mild cough with white sputum, no fever or chills, no nausea or vomiting. denies palpitations. pt was admitted 01/06- at [facility] for crisis and blood transfusion. Time Seen by Provider: 01/20/17 08:24 Chief Complaint (Nursing): Chest Pain History Per: Patient History/Exam Limitations: no limitations Onset/Duration Of Symptoms: Days Current Symptoms Are (Timing): Still Present Severity: Moderate Quality: "Pain" Associated Symptoms: denies: Nausea, Dyspnea, Diaphoresis Modifying Factors: None Exacerbating Factors: Deep Breathing Alleviating Factors: None Recent travel outside of the [place]: No Past Medical History Reviewed: Historical Data, Nursing Documentation, Vital Signs Vital Signs: Last Vital Signs Temp 97.9 F 01/20/17 08:15 Pulse 72 01/20/17 11:00 Resp 20 01/20/17 11:00 BP 114/41 L 01/20/17 13:04 Pulse Ox 97 01/20/17 13:13 - Medical History PMH: Anemia, Bronchitis, Gall Bladder Disease, Pneumonia, Sickle Cell Disease Surgical History: Cholecystectomy Other Surgeries: splenectomy - [facility] Procedures INFLUENZA VACCINATION (03/16/12) INJECT/INFUSE ELECTROLYT (09/07/13) INJECT/INFUSE NEC (01/25/14) INSERTION OF INFUSION DEV INTO SUP VENA CAVA, PERC APPROACH (11/19/16) NEBULIZER THERAPY (12/02/13) PACKED CELL TRANSFUSION (02/12/15) REMOVAL OF VAD FROM TRUNK SUBCU/FASCIA, OPEN APPROACH (04/15/16) TRANSFUSE NONAUT RED BLOOD CELLS IN PERIPH VEIN, PERC (04/15/16) VACCINATION NEC (08/22/13) Family History: States: Unknown Family Hx - Social History Hx Tobacco Use: No Hx Alcohol Use: No Hx Substance Use: No - Immunization History Hx Tetanus Toxoid Vaccination: Yes Hx Influenza Vaccination: Yes (2015) Hx Pneumococcal Vaccination: Yes (2014) Review Of Systems Constitutional: Negative for: Fever, Chills ENT: Negative for: Ear Pain, Throat Pain Cardiovascular: Positive for: Chest Pain. Negative for: Palpitations Respiratory: Positive for: Cough, Pleuritic Pain, Sputum. Negative for: Shortness of Breath Gastrointestinal: Negative for: Nausea, Vomiting, Abdominal Pain Genitourinary: Positive for: Dysuria Musculoskeletal: Positive for: Other (pain all over) Skin: Negative for: Rash Neurological: Negative for: Weakness, Numbness Physical Exam - Physical Exam Appears: Non-toxic, No Acute Distress Skin: Warm, Dry Head: Atraumatic, Normacephalic Eye(s): bilateral: Other (pupils approx 4 mm, reactive) Oral Mucosa: Moist Throat: Normal, No Erythema Neck: Normal ROM Chest: Symmetrical, No Deformity, Tenderness (along sternum, distal part most tender) Cardiovascular: Rhythm Regular, No Murmur Respiratory: Normal Breath Sounds, No Rales, No Rhonchi, No Wheezing Gastrointestinal/Abdominal: Bowel Sounds, Soft, No Tenderness Extremity: Normal ROM, No Pedal Edema, No Calf Tenderness Neurological/Psych: Oriented x3, Normal Speech, Normal Cognition ED Course And Treatment - Laboratory Results Result Diagrams: 01/20/17 09:16 01/20/17 09:16 Urine POC: Negative ECG: Interpreted By Me, Viewed By Me ECG Rhythm: Sinus Rhythm ECG Interpretation: Normal Interpretation Of ECG: nsr, no st-t changes Rate From EC O2 Sat by Pulse Oximetry: 97 Pulse Ox Interpretation: Normal Medical Decision Making Medical Decision Making: pt with cp and all over body pain typical of scd pain crisis; will get labs, ekg , medication and re-evaluate. 112 pm pt has had 2 rounds of pain medicatons, sts pain is decreased. ambulating easily around ed. pt's hgb 8.6, elevated from last time. 150 pm pt sts she feels better, requesting got go home, will d/c Disposition - Disposition Referrals: Enzo Louis MD [Staff Provider] - Anil Portillo MD [Staff Provider] - Disposition: HOME/ ROUTINE Disposition Time: 13:52 Condition: STABLE Additional Instructions: Follow up with Dr Louis and with Dr Portillo (hematology) in the next few days. Return to ER for any worsneing symptoms. Forms: [facility] (Malay), General Discharge Instructions - Clinical Impression Clinical Impression: Sickle cell pain crisis
[2017-01-20 09:22] LABS: BASO # 0.1 K/uL (0.0-0.2); BASO % 0.9 % (0.0-2.0); EOS # 0.2 K/uL (0.0-0.7); EOS % 1.4 % (0.0-4.0); HEMATOCRIT 26.2 % (34.0-47.0); LYMPH # 3.3 K/uL (1.0-4.3); LYMPH % 24.6 % (20.0-40.0); MEAN CORPUSCULAR HEMOGLOBIN 33.7 pg (27.0-31.0); MEAN CORPUSCULAR HGB CONC 32.7 g/dL (33.0-37.0); MEAN PLATELET VOLUME 7.9 fL (7.2-11.7); MONO # 1.1 K/uL (0.0-0.8); MONO % 8.3 % (0.0-10.0); NRBC % 1.5 % (0.0-2.0); RED CELL DISTRIBUTION WIDTH 32.9 % (11.5-14.5); RETIC% 17.3 % (0.5-1.5); WHITE BLOOD COUNT 13.6 K/uL (4.8-10.8)
[2017-01-20 09:28] LABS: CHLORIDE 100 mmol/L (98-107); POTASSIUM 4.4 mmol/L (3.6-5.2); SODIUM 140 mmol/L (132-148)
[2017-01-20 09:29] LABS: RBC URINE 3 /hpf (0-3); URINE BACTERIA RARE (<OCC); URINE BILIRUBIN NEGATIVE (NEGATIVE); URINE BLOOD NEGATIVE (NEGATIVE); URINE COLOR Yellow (YELLOW); URINE GLUCOSE (UA) NORMAL (Normal); URINE KETONE NEGATIVE (NEGATIVE); URINE LEUKOCYTE ESTERASE NEG Leu/uL (Negative); URINE PROTEIN NEGATIVE (NEGATIVE); URINE UROBILINOGEN NORMAL mg/dL (0.2-1.0); WBC URINE 3 /hpf (0-5)
[2017-01-20 09:30] LABS: GFR AFRICAN-AMERICAN > 60
[2017-01-20 09:31] LABS: ALB/GLOB RATIO 1.2 (1.0-2.1); ALKALINE PHOSPHATASE 125 U/L (38-126); ALT/SGPT 133 U/L (9-52); AST/SGOT 98 U/L (14-36); BILIRUBIN,TOTAL 1.8 mg/dL (0.2-1.3); BLOOD UREA NITROGEN 9 mg/dL (7-17); CARBON DIOXIDE 28 mmol/L (22-30); GLUCOSE,RANDOM 94 mg/dL (65-105); TOTAL PROTEIN 7.1 g/dL (6.3-8.3)
[2017-01-20 09:32] LABS: CALCIUM 8.9 mg/dl (8.6-10.4)
[2017-01-20 11:01] VITALS: PULSE 72
[2017-01-20 13:05] VITALS: BP 114/41
[2017-01-20 13:13] VITALS: O2SAT 97
--- NOTE | 2017-01-21 19:26 | CARD ---
APPROVED REPORT EKG Measurement Heart [id number] <Conclusion> Normal sinus rhythm Normal ECG
== END 2017-01-20 14:00 | disposition home or self-care (01) ==
LOC: C.ER 08:10
DX: D57.00 Hb-SS disease with crisis, unspecified (principal)

== ENCOUNTER 2017-01-22 10:12 | Observation (INO) | payer MEDICAID ==
[2017-01-22 10:12] VITALS: BMI 24.5
[2017-01-22 10:24] VITALS: TEMP 99
--- NOTE | 2017-01-22 10:45 | C.PDOC ---
History Of Present Illness 31 y/o female with Hx of SCD well known at ED presents with complaints of worsening generalized chronic pain. Patient states pain has been worse since last visit to ED on 01/20/17. Patient reports she has been taking Hydroxyurea and Folic acid but denies any other medications at home for symptoms. Patient denies fever, chills, numbness, n/v/d or any other complaints at this time. Time Seen by Provider: 01/22/17 10:26 Chief Complaint (Nursing): Pain, Chronic History Per: Patient History/Exam Limitations: no limitations Onset/Duration Of Symptoms: Days Current Symptoms Are (Timing): Still Present Past Medical History Reviewed: Historical Data, Nursing Documentation, Vital Signs Vital Signs: Last Vital Signs Temp 99 F 01/22/17 10:23 Pulse 82 01/22/17 13:09 Resp 20 01/22/17 13:09 BP 113/62 01/22/17 13:09 Pulse Ox 96 01/22/17 13:20 - Medical History PMH: Anemia, Bronchitis, Gall Bladder Disease, Pneumonia, Sickle Cell Disease Surgical History: Cholecystectomy - [facility] Procedures INFLUENZA VACCINATION (03/16/12) INJECT/INFUSE ELECTROLYT (09/07/13) INJECT/INFUSE NEC (01/25/14) INSERTION OF INFUSION DEV INTO SUP VENA CAVA, PERC APPROACH (11/19/16) NEBULIZER THERAPY (12/02/13) PACKED CELL TRANSFUSION (02/12/15) REMOVAL OF VAD FROM TRUNK SUBCU/FASCIA, OPEN APPROACH (04/15/16) TRANSFUSE NONAUT RED BLOOD CELLS IN PERIPH VEIN, PERC (04/15/16) VACCINATION NEC (08/22/13) Family History: States: No Known Family Hx - Social History Hx Tobacco Use: No Hx Alcohol Use: No Hx Substance Use: No - Immunization History Hx Tetanus Toxoid Vaccination: Yes Hx Influenza Vaccination: Yes (2015) Hx Pneumococcal Vaccination: Yes (2014) Review Of Systems Except As Marked, All Systems Reviewed And Found Negative. Constitutional: Negative for: Fever, Chills Gastrointestinal: Negative for: Nausea, Vomiting, Diarrhea Musculoskeletal: Positive for: Other (Generalized pain) Skin: Negative for: Rash Neurological: Negative for: Weakness, Numbness Physical Exam - Physical Exam Appears: Non-toxic, No Acute Distress Skin: Normal Color, Warm, No Rash Head: Atraumatic, Normacephalic Oral Mucosa: Moist Neck: Normal ROM, Supple Chest: Symmetrical Cardiovascular: Rhythm Regular Respiratory: Normal Breath Sounds, No Rales, No Rhonchi, No Wheezing Gastrointestinal/Abdominal: Soft, No Tenderness, No Guarding, No Rebound Extremity: Normal ROM, Capillary Refill (<2 seconds) Neurological/Psych: Oriented x3, Normal Speech, Normal Cognition, Normal Motor, Normal Sensation ED Course And Treatment - Laboratory Results Result Diagrams: 01/22/17 10:49 01/22/17 10:49 O2 Sat by Pulse Oximetry: 96 (RA) Pulse Ox Interpretation: Normal - Other Rad chest X-Ray: Interpreted by Me, Viewed By Me, Read By Radiologist Interpretation: FINDINGS: LUNGS: No focal consolidation. PLEURA: No significant pleural effusion identified. No definite pneumothorax . CARDIOVASCULAR: The cardiomediastinal silhouette appears within normal limits of size. OSSEOUS STRUCTURES: No acute osseous abnormality identified. VISUALIZED UPPER ABDOMEN: Unremarkable. OTHER FINDINGS: None. IMPRESSION: No focal consolidation, significant pleural effusion, or definite pneumothorax identified. Medical Decision Making Medical Decision Making: Plan: * Xray * Pain medication * IV fluids * UA to rule out Infection * 11:09AM Cxray negative. 1:37PM After 2 doses of pain medication patient feels better and wants to go home. Labs at baseline. Will dc ED OBSERVATION Discharge: Yes Date of observation admission: 01/22/17 Time of observation admission: 11:10 - Observation admission statement Patient is being placed in observation because:: sickle cell pain - Goals of Observation Goals of observation are:: monitoring and analgesic treatment Disposition - Disposition Disposition: HOME/ ROUTINE Disposition Time: 13:37 Condition: GOOD - Clinical Impression Clinical Impression: Sickle cell crisis - Scribe Statement The provider has reviewed the documentation as recorded by the Rosa Rodriguez All medical record entries made by the Rosa were at my direction and personally dictated by me. I have reviewed the chart and agree that the record accurately reflects my personal performance of the history, physical exam, medical decision making, and the department course for this patient. I have also personally directed, reviewed, and agree with the discharge instructions and disposition.
[2017-01-22 11:00] LABS: RBC URINE 1 /hpf (0-3); URINE BACTERIA RARE (<OCC); URINE BILIRUBIN NEGATIVE (NEGATIVE); URINE BLOOD 2+ (NEGATIVE); URINE COLOR Yellow (YELLOW); URINE GLUCOSE (UA) NORMAL (Normal); URINE KETONE NEGATIVE (NEGATIVE); URINE LEUKOCYTE ESTERASE NEG Leu/uL (Negative); URINE PROTEIN NEGATIVE (NEGATIVE); URINE UROBILINOGEN NORMAL mg/dL (0.2-1.0); WBC URINE 3 /hpf (0-5)
[2017-01-22 11:06] LABS: BASO # 0.1 K/uL (0.0-0.2); BASO % 0.8 % (0.0-2.0); EOS # 0.3 K/uL (0.0-0.7); EOS % 1.5 % (0.0-4.0); HEMATOCRIT 24.5 % (34.0-47.0); LYMPH # 4.3 K/uL (1.0-4.3); LYMPH % 23.6 % (20.0-40.0); MEAN CORPUSCULAR HEMOGLOBIN 34.4 pg (27.0-31.0); MEAN CORPUSCULAR HGB CONC 34.5 g/dL (33.0-37.0); MONO # 1.4 K/uL (0.0-0.8); NRBC % 0.8 % (0.0-2.0); RED CELL DISTRIBUTION WIDTH 30.3 % (11.5-14.5); RETIC% 13.5 % (0.5-1.5); WHITE BLOOD COUNT 18.1 K/uL (4.8-10.8)
[2017-01-22 11:07] LABS: ALB/GLOB RATIO 1.3 (1.0-2.1); ALKALINE PHOSPHATASE 157 U/L (38-126); ALT/SGPT 196 U/L (9-52); AST/SGOT 101 U/L (14-36); BILIRUBIN,TOTAL 3.1 mg/dL (0.2-1.3); BLOOD UREA NITROGEN 13 mg/dL (7-17); CALCIUM 9.2 mg/dl (8.6-10.4); CARBON DIOXIDE 26 mmol/L (22-30); CHLORIDE 102 mmol/L (98-107); GFR AFRICAN-AMERICAN > 60; GLUCOSE,RANDOM 91 mg/dL (65-105); POTASSIUM 4.3 mmol/L (3.6-5.2); SODIUM 142 mmol/L (132-148); TOTAL PROTEIN 7.6 g/dL (6.3-8.3)
--- NOTE | 2017-01-22 11:09 | RAD ---
HISTORY: sickle cell pain COMPARISON: Chest x-ray performed 01/06/17 TECHNIQUE: Chest, one view. FINDINGS: LUNGS: No focal consolidation. PLEURA: No significant pleural effusion identified. No definite pneumothorax . CARDIOVASCULAR: The cardiomediastinal silhouette appears within normal limits of size. OSSEOUS STRUCTURES: No acute osseous abnormality identified. VISUALIZED UPPER ABDOMEN: Unremarkable. OTHER FINDINGS: None. IMPRESSION: No focal consolidation, significant pleural effusion, or definite pneumothorax identified.
[2017-01-22 11:14] LABS: MEAN CELL VOLUME 99.9 fL (81.0-99.0)
[2017-01-22 13:10] VITALS: BP 113/62; PULSE 82; RESP 20
[2017-01-22 13:20] VITALS: O2SAT 96
== END 2017-01-22 13:38 | disposition home or self-care (01) ==
LOC: C.ER 10:12 → C.9OBSV 11:10
PROVIDERS: ADMIT Emergency Medicine; ATTEND Emergency Medicine
DX: D57.00 Hb-SS disease with crisis, unspecified (principal); G89.29 Other chronic pain
CPT/HCPCS: 71010; 80053; 81001; 83615; 84703; 85025; 85044; G0378

== ENCOUNTER 2017-01-25 08:38 | Inpatient (IN) | payer MEDICAID ==
[2017-01-25 08:39] VITALS: BMI 24.5
--- NOTE | 2017-01-25 09:10 | C.PDOC ---
History Of Present Illness 31 y/o female with Hx of SCD well known at ED presents with complaints of worsening generalized chronic body pain, nausea, one episode of vomiting yesterday. Patient states pain has been worse since last visit to ED on . Patient denies fever, chills, headache, dizziness, visual changes, neck pain, CP, SOB, dyspnea, diaphoresis, palpitation, hematemesis, melena, hematoschezia, denies numbness, weakness to B/L LEs, denies any other complaints at this time. Time Seen by Provider: 01/25/17 08:46 Chief Complaint (Nursing): Pain, Chronic History Per: Patient History/Exam Limitations: no limitations Onset/Duration Of Symptoms: Days Current Symptoms Are (Timing): Still Present Reports Recently: Seen In ED Recent travel outside of the [place]: No Additional History Per: Patient Past Medical History Reviewed: Historical Data, Nursing Documentation, Vital Signs Vital Signs: Last Vital Signs Temp 98.2 F 01/27/17 07:34 Pulse 77 01/27/17 07:34 Resp 18 01/27/17 07:34 BP 99/69 L 01/27/17 07:34 Pulse Ox 95 01/27/17 07:34 - Medical History PMH: Anemia, Bronchitis, Gall Bladder Disease, Pneumonia, Sickle Cell Disease Surgical History: Cholecystectomy - [facility] Procedures INFLUENZA VACCINATION (03/16/12) INJECT/INFUSE ELECTROLYT (09/07/13) INJECT/INFUSE NEC (01/25/14) INSERTION OF INFUSION DEV INTO SUP VENA CAVA, PERC APPROACH (11/19/16) NEBULIZER THERAPY (12/02/13) PACKED CELL TRANSFUSION (02/12/15) REMOVAL OF VAD FROM TRUNK SUBCU/FASCIA, OPEN APPROACH (04/15/16) TRANSFUSE NONAUT RED BLOOD CELLS IN PERIPH VEIN, PERC (04/15/16) VACCINATION NEC (08/22/13) Family History: States: Unknown Family Hx - Social History Hx Tobacco Use: No Hx Alcohol Use: No Hx Substance Use: No - Immunization History Hx Tetanus Toxoid Vaccination: Yes Hx Influenza Vaccination: Yes (2015) Hx Pneumococcal Vaccination: Yes (2014) Review Of Systems Except As Marked, All Systems Reviewed And Found Negative. Constitutional: Positive for: Other (generalized chronic pain). Negative for: Fever, Chills Cardiovascular: Negative for: Chest Pain, Palpitations, Edema, Light Headedness Respiratory: Negative for: Cough, Shortness of Breath, Wheezing Gastrointestinal: Negative for: Nausea, Vomiting, Abdominal Pain Genitourinary: Negative for: Dysuria, Frequency, Hematuria Skin: Negative for: Rash, Bruising Neurological: Negative for: Weakness, Numbness, Headache, Dizziness Physical Exam - Physical Exam Appears: Well, Non-toxic, No Acute Distress Skin: Normal Color, Warm, Dry, No Rash, No Ecchymosis Eye(s): bilateral: PERRL Nose: No Flaring, No Discharge Oral Mucosa: Moist, No Drooling Throat: No Erythema, No Exudate, No Drooling Neck: No Midline Cervical Tenderness, Supple, Other ((-) carotid bruits) Cardiovascular: Rhythm Regular, No Friction Rub, No Murmur, No JVD Respiratory: No Decreased Breath Sounds, No Accessory Muscle Use, No Rales, No Rhonchi, No Stridor, No Wheezing Gastrointestinal/Abdominal: Soft, No Tenderness, No Distention, No Guarding Back: No CVA Tenderness Extremity: No Pedal Edema, No Deformity Neurological/Psych: Oriented x3, Normal Speech, Normal Motor, Normal Sensation, Normal Reflexes ED Course And Treatment - Laboratory Results Result Diagrams: 01/25/17 09:26 01/25/17 09:26 Lab Interpretation: Abnormal O2 Sat by Pulse Oximetry: 99 (RA) Pulse Ox Interpretation: Normal - Radiology CXR: Interpreted by Me, Viewed By Me CXR Interpretation: Yes: No Acute Disease Progress Note: Blood work, urinalysis, CXR ordered and reviewed. Patient was given Reglan, Benadryl, and Dilaudid. on re-eavluation, pt reamined unchanged. Pt received 2 rounds of pain medictaion and remained in pain. Diagnostics review and appaers abnoraml with increase in leukocytosis and retic count compare to 01/22/17.,. Case discussed with ED attending and admission recommend. Case discussed with and Admission arranged with Dx: [facility]. 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 - Scribe Statement The provider has reviewed the documentation as recorded by the Rosa Louis All medical record entries made by the Rosa were at my direction and personally dictated by me. I have reviewed the chart and agree that the record accurately reflects my personal performance of the history, physical exam, medical decision making, and the department course for this patient. I have also personally directed, reviewed, and agree with the discharge instructions and disposition.
[2017-01-25 09:32] LABS: BASO # 0.1 K/uL (0.0-0.2); BASO % 0.7 % (0.0-2.0); EOS # 0.3 K/uL (0.0-0.7); EOS % 1.8 % (0.0-4.0); HEMATOCRIT 24.6 % (34.0-47.0); LYMPH # 4.1 K/uL (1.0-4.3); LYMPH % 27.6 % (20.0-40.0); MEAN CELL VOLUME 104.6 fL (81.0-99.0); MEAN CORPUSCULAR HGB CONC 33.4 g/dL (33.0-37.0); MEAN PLATELET VOLUME 7.7 fL (7.2-11.7); MONO # 1.3 K/uL (0.0-0.8); MONO % 8.6 % (0.0-10.0); NRBC % 1.9 % (0.0-2.0); RED CELL DISTRIBUTION WIDTH 34.6 % (11.5-14.5); RETIC% 20.5 % (0.5-1.5); WHITE BLOOD COUNT 14.8 K/uL (4.8-10.8)
[2017-01-25 09:40] LABS: RBC URINE 1 /hpf (0-3); URINE BACTERIA RARE (<OCC); URINE BILIRUBIN NEGATIVE (NEGATIVE); URINE BLOOD NEGATIVE (NEGATIVE); URINE COLOR Yellow (YELLOW); URINE GLUCOSE (UA) NORMAL (Normal); URINE KETONE NEGATIVE (NEGATIVE); URINE LEUKOCYTE ESTERASE NEG Leu/uL (Negative); URINE PROTEIN NEGATIVE (NEGATIVE); URINE UROBILINOGEN NORMAL mg/dL (0.2-1.0); WBC URINE 1 /hpf (0-5)
[2017-01-25 09:48] LABS: CHLORIDE 103 mmol/L (98-107); POTASSIUM 4.1 mmol/L (3.6-5.2); SODIUM 141 mmol/L (132-148)
[2017-01-25 09:50] LABS: GFR AFRICAN-AMERICAN > 60
[2017-01-25 09:51] LABS: ALB/GLOB RATIO 1.3 (1.0-2.1); ALKALINE PHOSPHATASE 140 U/L (38-126); ALT/SGPT 123 U/L (9-52); AST/SGOT 63 U/L (14-36); BILIRUBIN,TOTAL 1.8 mg/dL (0.2-1.3); BLOOD UREA NITROGEN 7 mg/dL (7-17); CARBON DIOXIDE 26 mmol/L (22-30); GLUCOSE,RANDOM 97 mg/dL (65-105); TOTAL PROTEIN 6.8 g/dL (6.3-8.3)
[2017-01-25 09:52] LABS: CALCIUM 9.3 mg/dl (8.6-10.4)
[2017-01-25] MEDS ORDERED: Sodium Chloride 0.9% 1,000 ML IV ONE (11:47)
[2017-01-25] MEDS ORDERED: Sodium Chloride 0.9% 1,000 ML ONE (12:10)
--- NOTE | 2017-01-25 12:30 | RAD ---
HISTORY: Pain. No history of recent/ related trauma provided COMPARISON: No prior. TECHNIQUE: Chest PA and lateral FINDINGS: LUNGS: No active pulmonary disease. PLEURA: No significant pleural effusion identified. No pneumothorax apparent. CARDIOVASCULAR: Normal. OSSEOUS STRUCTURES: No significant abnormalities. VISUALIZED UPPER ABDOMEN: Normal. OTHER FINDINGS: None. IMPRESSION: No active disease. Concordant results with the preliminary interpretation rendered by the emergency department physician procedure.
--- NOTE | 2017-01-25 15:22 | CP.PCM.HP ---
Past Patient History - Infectious Disease Hx of Infectious Diseases: None - Tetanus Immunizations Tetanus Immunization: Up to Date - Past Medical History & Family History Past Medical History?: Yes - Past Social History Smoking Status: occasional - CARDIAC Hx Cardiac Disorders: No - PULMONARY Hx Bronchitis: Yes Hx Pneumonia: Yes - NEUROLOGICAL Hx Neurological Disorder: No - HEENT Hx HEENT Problems: No - RENAL Hx Chronic Kidney Disease: No - ENDOCRINE/METABOLIC Hx Endocrine Disorders: No - HEMATOLOGICAL/ONCOLOGICAL Hx Anemia: Yes Hx Sickle Cell Disease: Yes - INTEGUMENTARY Hx Dermatological Problems: No - MUSCULOSKELETAL/RHEUMATOLOGICAL Hx Falls: No - GASTROINTESTINAL Hx Gall Bladder Disease: Yes - GENITOURINARY/GYNECOLOGICAL Hx Genitourinary Disorders: No - PSYCHIATRIC Hx Substance Use: Yes (marijuana) - SURGICAL HISTORY Hx Cholecystectomy: Yes - ANESTHESIA Hx Anesthesia: Yes Hx Anesthesia Reactions: No Hx Malignant Hyperthermia: No Meds Allergies/Adverse Reactions: Allergies Allergy/AdvReac Type Severity Reaction Status Date / Time FISH Allergy Severe RASH Verified 01/25/17 08:47 oxycodone Allergy Severe RASH Verified 01/25/17 08:47 tramadol Allergy Severe RASH Verified 01/25/17 08:47 ketorolac Allergy Intermediate RASH Verified 01/25/17 08:47 Results - Vital Signs Recent Vital Signs: Last Vital Signs Temp 98 F 01/25/17 13:22 Pulse 69 01/25/17 13:22 Resp 20 01/25/17 13:22 BP 123/73 01/25/17 13:22 Pulse Ox 97 01/25/17 13:22 - Labs Result Diagrams: 01/25/17 09:26 01/25/17 09:26
[2017-01-25] MEDS: DiphenhydrAMINE 50 mg/ml Inj IVP SCH ×3 (16:04→22:09)
[2017-01-26] MEDS: DiphenhydrAMINE 50 mg/ml Inj IVP SCH ×8 (01:05→22:16)
[2017-01-26] MEDS: Enoxaparin 40 mg Syringe SC SCH (10:22)
[2017-01-26] MEDS: Pantoprazole 40 mg EC Tab PO SCH (10:22)
--- NOTE | 2017-01-26 12:59 | CP.PCM.PN ---
Subjective - Date & Time of Evaluation Date of Evaluation: 01/26/17 Time of Evaluation: 09:00 - Subjective Subjective: clinically same Objective - Vital Signs/Intake and Output Vital Signs (last 24 hours): Temp Pulse Resp BP Pulse Ox 98.0 F 75 20 121/79 95 01/26/17 08:00 01/26/17 08:00 01/26/17 08:00 01/26/17 08:00 01/26/17 08:00 Intake and Output: 01/26/17 01/26/17 06:59 18:59 Intake Total 360 Balance 360 - Medications Medications: Current Medications Diphenhydramine HCl (Benadryl) 25 mg IVP Q3 [facility] Last Admin: 01/26/17 10:17 Dose: 25 mg Enoxaparin Sodium (Lovenox) 40 mg SC DAILY [facility] Last Admin: 01/26/17 10:22 Dose: 40 mg Folic Acid (Folic Acid) 1 mg PO DAILY [facility] Last Admin: 01/26/17 10:23 Dose: 1 mg Hydromorphone HCl (Dilaudid) 2 mg IVP Q3 [facility] Last Admin: 01/26/17 10:17 Dose: 2 mg Sodium Chloride (Sodium Chloride 0.9%) 1,000 mls @ 75 mls/hr IV .[id number] [facility] Pantoprazole Sodium (Protonix Ec Tab) 40 mg PO DAILY [facility] Last Admin: 01/26/17 10:22 Dose: 40 mg - Constitutional Appears: Well - Head Exam Head Exam: ATRAUMATIC, NORMAL INSPECTION, NORMOCEPHALIC - Eye Exam Eye Exam: EOMI, Normal appearance, PERRL Pupil Exam: NORMAL ACCOMODATION, PERRL - ENT Exam ENT Exam: Mucous Membranes Moist, Normal Exam - Neck Exam Neck Exam: Full ROM, Normal Inspection. absent: Lymphadenopathy - Respiratory Exam Respiratory Exam: Decreased Breath Sounds - Cardiovascular Exam Cardiovascular Exam: REGULAR RHYTHM, +S1, +S2 - GI/Abdominal Exam GI & Abdominal Exam: Soft, Diminished Bowel Sounds - Rectal Exam Rectal Exam: Deferred Assessment and Plan (1) Sickle cell crisis Status: Acute (2) Abdominal pain Status: Acute (3) Abdominal pain Status: Acute (4) Abnormal LFTs Status: Acute (5) Anemia Status: Acute (6) Anemia Status: Acute (7) Cannabis use disorder, mild, abuse Status: Acute (8) Chronic abdominal pain Status: Acute (9) Chronic pain Status: Acute (10) Chronic pain disorder Status: Acute (11) Contusion of back Status: Acute (12) Contusion of hip, right Status: Acute (13) Dehydration Status: Acute (14) Drug-seeking behavior Status: Acute (15) Dysfunctional uterine bleeding Status: Acute (16) Elevated LFTs Status: Acute (17) Generalized pain Status: Acute (18) Headache Status: Acute (19) Hordeolum externum (stye) Status: Acute (20) Iron overload due to repeated red blood cell transfusions Status: Acute (21) Leukocytosis Status: Acute (22) Opioid abuse Status: Acute (23) Pain Status: Acute (24) Pain Status: Acute (25) Pain disorder Status: Acute (26) Pneumonia Status: Acute (27) Prophylactic measure Status: Acute (28) Sickle cell anemia Status: Acute (29) Sickle cell crisis Status: Acute (30) Sickle cell disease Status: Acute (31) Sickle cell pain crisis Status: Acute (32) Sickle cell pain crisis Status: Acute (33) Sickle cell trait Status: Acute (34) Sickle-cell disease with pain Status: Acute (35) 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
[2017-01-26] MEDS: Sodium Chloride 0.9% 1,000 ML IV SCH ×2 (13:13→21:42)
[2017-01-27] MEDS: Sodium Chloride 0.9% 1,000 ML IV SCH (00:21)
[2017-01-27] MEDS: DiphenhydrAMINE 50 mg/ml Inj IVP SCH ×8 (01:17→22:20)
[2017-01-27] MEDS: Pantoprazole 40 mg EC Tab PO SCH (10:05)
[2017-01-27] MEDS: Enoxaparin 40 mg Syringe SC SCH (10:05)
[2017-01-27 14:18] LABS: BASO # 0.1 K/uL (0.0-0.2); BASO % 0.5 % (0.0-2.0); EOS # 0.4 K/uL (0.0-0.7); EOS % 2.3 % (0.0-4.0); HEMATOCRIT 21.3 % (34.0-47.0); LYMPH # 4.4 K/uL (1.0-4.3); LYMPH % 24.5 % (20.0-40.0); MEAN CORPUSCULAR HEMOGLOBIN 33.4 pg (27.0-31.0); MONO # 1.5 K/uL (0.0-0.8); MONO % 8.5 % (0.0-10.0); RED CELL DISTRIBUTION WIDTH 31.4 % (11.5-14.5); WHITE BLOOD COUNT 18.1 K/uL (4.8-10.8)
[2017-01-27 14:23] LABS: MEAN CELL VOLUME 99.3 fL (81.0-99.0)
[2017-01-27 14:30] LABS: CHLORIDE 98 mmol/L (98-107)
[2017-01-27 14:31] LABS: POTASSIUM 4.1 mmol/L (3.6-5.2); SODIUM 140 mmol/L (132-148)
[2017-01-27 14:33] LABS: ALB/GLOB RATIO 1.2 (1.0-2.1); ALKALINE PHOSPHATASE 141 U/L (38-126); ALT/SGPT 116 U/L (9-52); AST/SGOT 94 U/L (14-36); BILIRUBIN,TOTAL 4.9 mg/dL (0.2-1.3); BLOOD UREA NITROGEN 7 mg/dL (7-17); CARBON DIOXIDE 31 mmol/L (22-30); GFR AFRICAN-AMERICAN > 60; TOTAL PROTEIN 6.9 g/dL (6.3-8.3)
[2017-01-27 14:34] LABS: CALCIUM 8.8 mg/dl (8.6-10.4); GLUCOSE,RANDOM 86 mg/dL (65-105)
--- NOTE | 2017-01-27 16:48 | CP.PCM.PN ---
Subjective - Date & Time of Evaluation Date of Evaluation: 01/27/17 Time of Evaluation: 09:00 - Subjective Subjective: clinically same Objective - Vital Signs/Intake and Output Vital Signs (last 24 hours): Temp Pulse Resp BP Pulse Ox 98.6 F 88 20 105/69 93 L 01/27/17 15:00 01/27/17 15:00 01/27/17 15:00 01/27/17 15:00 01/27/17 15:00 Intake and Output: 01/27/17 01/27/17 06:59 18:59 Intake Total 1560 880 Balance 1560 880 - Medications Medications: Current Medications Diphenhydramine HCl (Benadryl) 25 mg IVP Q3 [facility] Last Admin: 01/27/17 16:17 Dose: 25 mg Enoxaparin Sodium (Lovenox) 40 mg SC DAILY [facility] Last Admin: 01/27/17 10:05 Dose: 40 mg Folic Acid (Folic Acid) 1 mg PO DAILY [facility] Last Admin: 01/27/17 10:04 Dose: 1 mg Hydromorphone HCl (Dilaudid) 2 mg IVP Q3 [facility] Last Admin: 01/27/17 16:17 Dose: 2 mg Sodium Chloride (Sodium Chloride 0.9%) 1,000 mls @ 75 mls/hr IV .[id number] [facility] Last Admin: 01/27/17 00:21 Dose: Not Given Ondansetron HCl (Zofran Inj) 4 mg IVP Q6 PRN PRN Reason: Nausea/Vomiting Last Admin: 01/27/17 12:25 Dose: 4 mg Pantoprazole Sodium (Protonix Ec Tab) 40 mg PO DAILY [facility] Last Admin: 01/27/17 10:05 Dose: 40 mg - Labs Labs: 01/27/17 14:06 01/27/17 14:06 - Constitutional Appears: Well - Head Exam Head Exam: ATRAUMATIC, NORMAL INSPECTION, NORMOCEPHALIC - Eye Exam Eye Exam: EOMI, Normal appearance, PERRL Pupil Exam: NORMAL ACCOMODATION, PERRL - ENT Exam ENT Exam: Mucous Membranes Moist, Normal Exam - Neck Exam Neck Exam: Full ROM, Normal Inspection. absent: Lymphadenopathy - Respiratory Exam Respiratory Exam: Decreased Breath Sounds - Cardiovascular Exam Cardiovascular Exam: REGULAR RHYTHM, +S1, +S2 - GI/Abdominal Exam GI & Abdominal Exam: Soft, Diminished Bowel Sounds - Rectal Exam Rectal Exam: Deferred Assessment and Plan (1) Sickle cell crisis Status: Acute (2) Abdominal pain Status: Acute (3) Abdominal pain Status: Acute (4) Abnormal LFTs Status: Acute (5) Anemia Status: Acute (6) Anemia Status: Acute (7) Cannabis use disorder, mild, abuse Status: Acute (8) Chronic abdominal pain Status: Acute (9) Chronic pain Status: Acute (10) Chronic pain disorder Status: Acute (11) Contusion of back Status: Acute (12) Contusion of hip, right Status: Acute (13) Dehydration Status: Acute (14) Drug-seeking behavior Status: Acute (15) Dysfunctional uterine bleeding Status: Acute (16) Elevated LFTs Status: Acute (17) Generalized pain Status: Acute (18) Headache Status: Acute (19) Hordeolum externum (stye) Status: Acute (20) Iron overload due to repeated red blood cell transfusions Status: Acute (21) Leukocytosis Status: Acute (22) Opioid abuse Status: Acute (23) Pain Status: Acute (24) Pain Status: Acute (25) Pain disorder Status: Acute (26) Pneumonia Status: Acute (27) Prophylactic measure Status: Acute (28) Sickle cell anemia Status: Acute (29) Sickle cell crisis Status: Acute (30) Sickle cell disease Status: Acute (31) Sickle cell pain crisis Status: Acute (32) Sickle cell pain crisis Status: Acute (33) Sickle cell trait Status: Acute (34) Sickle-cell disease with pain Status: Acute (35) 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
[2017-01-28] MEDS: Sodium Chloride 0.9% 1,000 ML IV SCH ×5 (01:07→20:00)
[2017-01-28] MEDS: DiphenhydrAMINE 50 mg/ml Inj IVP SCH ×8 (01:08→22:18)
[2017-01-28 07:26] LABS: CHLORIDE 98 mmol/L (98-107)
[2017-01-28 07:27] LABS: POTASSIUM 3.9 mmol/L (3.6-5.2); SODIUM 137 mmol/L (132-148)
[2017-01-28 07:29] LABS: ALKALINE PHOSPHATASE 137 U/L (38-126); ALT/SGPT 107 U/L (9-52); AST/SGOT 73 U/L (14-36); BILIRUBIN,TOTAL 4.5 mg/dL (0.2-1.3); BLOOD UREA NITROGEN 7 mg/dL (7-17); CARBON DIOXIDE 30 mmol/L (22-30); GFR AFRICAN-AMERICAN > 60; GLUCOSE,RANDOM 79 mg/dL (65-105); TOTAL PROTEIN 6.4 g/dL (6.3-8.3)
[2017-01-28 07:30] LABS: CALCIUM 8.3 mg/dl (8.6-10.4)
[2017-01-28 07:31] LABS: ALB/GLOB RATIO 1.1 (1.0-2.1)
[2017-01-28 07:54] LABS: HEMATOCRIT 21.7 % (34.0-47.0); MEAN CELL VOLUME 97.6 fL (81.0-99.0); MEAN CORPUSCULAR HGB CONC 32.8 g/dL (33.0-37.0); MEAN PLATELET VOLUME 7.7 fL (7.2-11.7); RED CELL DISTRIBUTION WIDTH 30.6 % (11.5-14.5); WHITE BLOOD COUNT 19.1 K/uL (4.8-10.8)
[2017-01-28] MEDS: Pantoprazole 40 mg EC Tab PO SCH (09:55)
[2017-01-28] MEDS: Enoxaparin 40 mg Syringe SC SCH (09:57)
--- NOTE | 2017-01-28 13:39 | CP.PCM.PN ---
Subjective - Date & Time of Evaluation Date of Evaluation: 01/28/17 Time of Evaluation: 08:40 - Subjective Subjective: clinically same Objective - Vital Signs/Intake and Output Vital Signs (last 24 hours): Temp Pulse Resp BP Pulse Ox 98.7 F 89 20 95/57 L 95 01/28/17 08:17 01/28/17 08:17 01/28/17 08:17 01/28/17 08:17 01/28/17 08:17 Intake and Output: 01/28/17 01/28/17 06:59 18:59 Intake Total 2740 Balance 2740 - Medications Medications: Current Medications Diphenhydramine HCl (Benadryl) 25 mg IVP Q3 [facility] Last Admin: 01/28/17 12:48 Dose: 25 mg Enoxaparin Sodium (Lovenox) 40 mg SC DAILY [facility] Last Admin: 01/28/17 09:57 Dose: Not Given Folic Acid (Folic Acid) 1 mg PO DAILY [facility] Last Admin: 01/28/17 09:55 Dose: 1 mg Hydromorphone HCl (Dilaudid) 2 mg IVP Q3 [facility] Last Admin: 01/28/17 12:49 Dose: 2 mg Sodium Chloride (Sodium Chloride 0.9%) 1,000 mls @ 100 mls/hr IV .Q10H [facility] Last Admin: 01/28/17 09:57 Dose: 100 mls/hr Ondansetron HCl (Zofran Inj) 4 mg IVP Q6 PRN PRN Reason: Nausea/Vomiting Last Admin: 01/28/17 06:10 Dose: 4 mg Pantoprazole Sodium (Protonix Ec Tab) 40 mg PO DAILY [facility] Last Admin: 01/28/17 09:55 Dose: 40 mg - Labs Labs: 01/28/17 07:51 01/28/17 07:05 - Constitutional Appears: Well - Head Exam Head Exam: ATRAUMATIC, NORMAL INSPECTION, NORMOCEPHALIC - Eye Exam Eye Exam: EOMI, Normal appearance, PERRL Pupil Exam: NORMAL ACCOMODATION, PERRL - ENT Exam ENT Exam: Mucous Membranes Moist, Normal Exam - Neck Exam Neck Exam: Full ROM, Normal Inspection. absent: Lymphadenopathy - Respiratory Exam Respiratory Exam: Decreased Breath Sounds - Cardiovascular Exam Cardiovascular Exam: REGULAR RHYTHM, +S1, +S2 - GI/Abdominal Exam GI & Abdominal Exam: Soft, Diminished Bowel Sounds - Rectal Exam Rectal Exam: Deferred Assessment and Plan (1) Sickle cell crisis Status: Acute (2) Abdominal pain Status: Acute (3) Abdominal pain Status: Acute (4) Abnormal LFTs Status: Acute (5) Anemia Status: Acute (6) Anemia Status: Acute (7) Cannabis use disorder, mild, abuse Status: Acute (8) Chronic abdominal pain Status: Acute (9) Chronic pain Status: Acute (10) Chronic pain disorder Status: Acute (11) Contusion of back Status: Acute (12) Contusion of hip, right Status: Acute (13) Dehydration Status: Acute (14) Drug-seeking behavior Status: Acute (15) Dysfunctional uterine bleeding Status: Acute (16) Elevated LFTs Status: Acute (17) Generalized pain Status: Acute (18) Headache Status: Acute (19) Hordeolum externum (stye) Status: Acute (20) Iron overload due to repeated red blood cell transfusions Status: Acute (21) Leukocytosis Status: Acute (22) Opioid abuse Status: Acute (23) Pain Status: Acute (24) Pain Status: Acute (25) Pain disorder Status: Acute (26) Pneumonia Status: Acute (27) Prophylactic measure Status: Acute (28) Sickle cell anemia Status: Acute (29) Sickle cell crisis Status: Acute (30) Sickle cell disease Status: Acute (31) Sickle cell pain crisis Status: Acute (32) Sickle cell pain crisis Status: Acute (33) Sickle cell trait Status: Acute (34) Sickle-cell disease with pain Status: Acute (35) 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
[2017-01-29] MEDS: DiphenhydrAMINE 50 mg/ml Inj IVP SCH ×6 (02:37→15:17)
[2017-01-29] MEDS: Sodium Chloride 0.9% 1,000 ML IV SCH ×3 (06:23→15:31)
[2017-01-29 07:33] VITALS: BP 129/78; PULSE 69; RESP 20; TEMP 98.2; O2SAT 96
[2017-01-29 08:29] LABS: BASO # 0.1 K/uL (0.0-0.2); BASO % 0.6 % (0.0-2.0); EOS # 0.4 K/uL (0.0-0.7); EOS % 2.5 % (0.0-4.0); HEMATOCRIT 25.9 % (34.0-47.0); LYMPH # 5.4 K/uL (1.0-4.3); LYMPH % 33.1 % (20.0-40.0); MEAN CORPUSCULAR HGB CONC 33.5 g/dL (33.0-37.0); MEAN PLATELET VOLUME 8.1 fL (7.2-11.7); MONO # 1.8 K/uL (0.0-0.8); MONO % 11.3 % (0.0-10.0); NRBC % 1.8 % (0.0-2.0); RED CELL DISTRIBUTION WIDTH 25.7 % (11.5-14.5); WHITE BLOOD COUNT 16.3 K/uL (4.8-10.8)
[2017-01-29 08:33] LABS: MEAN CELL VOLUME 95.6 fL (81.0-99.0); RETIC% 15.4 % (0.5-1.5)
[2017-01-29] MEDS: Pantoprazole 40 mg EC Tab PO SCH (09:20)
[2017-01-29] MEDS: Enoxaparin 40 mg Syringe SC SCH (09:22)
--- NOTE | 2017-01-29 16:29 | CP.PCM.PN ---
Subjective - Date & Time of Evaluation Date of Evaluation: 01/29/17 Time of Evaluation: 08:00 - Subjective Subjective: clinically same Objective - Vital Signs/Intake and Output Vital Signs (last 24 hours): Temp Pulse Resp BP Pulse Ox 98.2 F 69 20 129/78 96 01/29/17 07:32 01/29/17 07:32 01/29/17 07:32 01/29/17 07:32 01/29/17 07:32 Intake and Output: 01/29/17 01/29/17 06:59 18:59 Intake Total 325 Balance 325 - Medications Medications: Current Medications Diphenhydramine HCl (Benadryl) 25 mg IVP Q3 [facility] Last Admin: 01/29/17 15:17 Dose: 25 mg Enoxaparin Sodium (Lovenox) 40 mg SC DAILY [facility] Last Admin: 01/29/17 09:22 Dose: Not Given Folic Acid (Folic Acid) 1 mg PO DAILY [facility] Last Admin: 01/29/17 09:20 Dose: 1 mg Sodium Chloride (Sodium Chloride 0.9%) 1,000 mls @ 100 mls/hr IV .Q10H [facility] Last Admin: 01/29/17 15:31 Dose: Not Given Ondansetron HCl (Zofran Inj) 4 mg IVP Q6 PRN PRN Reason: Nausea/Vomiting Last Admin: 01/29/17 07:53 Dose: 4 mg Pantoprazole Sodium (Protonix Ec Tab) 40 mg PO DAILY [facility] Last Admin: 01/29/17 09:20 Dose: 40 mg - Labs Labs: 01/29/17 08:14 01/28/17 07:05 - Constitutional Appears: Well - Head Exam Head Exam: ATRAUMATIC, NORMAL INSPECTION, NORMOCEPHALIC - Eye Exam Eye Exam: EOMI, Normal appearance, PERRL Pupil Exam: NORMAL ACCOMODATION, PERRL - ENT Exam ENT Exam: Mucous Membranes Moist, Normal Exam - Neck Exam Neck Exam: Full ROM, Normal Inspection. absent: Lymphadenopathy - Respiratory Exam Respiratory Exam: Decreased Breath Sounds - Cardiovascular Exam Cardiovascular Exam: REGULAR RHYTHM, +S1, +S2 - GI/Abdominal Exam GI & Abdominal Exam: Soft, Diminished Bowel Sounds - Rectal Exam Rectal Exam: Deferred Assessment and Plan (1) Sickle cell crisis Status: Acute (2) Abdominal pain Status: Acute (3) Abdominal pain Status: Acute (4) Abnormal LFTs Status: Acute (5) Anemia Status: Acute (6) Anemia Status: Acute (7) Cannabis use disorder, mild, abuse Status: Acute (8) Chronic abdominal pain Status: Acute (9) Chronic pain Status: Acute (10) Chronic pain disorder Status: Acute (11) Contusion of back Status: Acute (12) Contusion of hip, right Status: Acute (13) Dehydration Status: Acute (14) Drug-seeking behavior Status: Acute (15) Dysfunctional uterine bleeding Status: Acute (16) Elevated LFTs Status: Acute (17) Generalized pain Status: Acute (18) Headache Status: Acute (19) Hordeolum externum (stye) Status: Acute (20) Iron overload due to repeated red blood cell transfusions Status: Acute (21) Leukocytosis Status: Acute (22) Opioid abuse Status: Acute (23) Pain Status: Acute (24) Pain Status: Acute (25) Pain disorder Status: Acute (26) Pneumonia Status: Acute (27) Prophylactic measure Status: Acute (28) Sickle cell anemia Status: Acute (29) Sickle cell crisis Status: Acute (30) Sickle cell disease Status: Acute (31) Sickle cell pain crisis Status: Acute (32) Sickle cell pain crisis Status: Acute (33) Sickle cell trait Status: Acute (34) Sickle-cell disease with pain Status: Acute (35) 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
--- NOTE | 2017-01-29 16:54 | CP.PCM.PN ---
Subjective - Date & Time of Evaluation Date of Evaluation: 01/29/17 Time of Evaluation: 11:00 - Subjective Subjective: Alert, ambulatory, denies sob or chest pains, NAD. Objective - Vital Signs/Intake and Output Vital Signs (last 24 hours): Temp Pulse Resp BP Pulse Ox 98.2 F 69 20 129/78 96 01/29/17 07:32 01/29/17 07:32 01/29/17 07:32 01/29/17 07:32 01/29/17 07:32 Intake and Output: 01/29/17 01/29/17 06:59 18:59 Intake Total 325 Balance 325 - Medications Medications: Current Medications Diphenhydramine HCl (Benadryl) 25 mg IVP Q3 [facility] Last Admin: 01/29/17 15:17 Dose: 25 mg Enoxaparin Sodium (Lovenox) 40 mg SC DAILY [facility] Last Admin: 01/29/17 09:22 Dose: Not Given Folic Acid (Folic Acid) 1 mg PO DAILY [facility] Last Admin: 01/29/17 09:20 Dose: 1 mg Sodium Chloride (Sodium Chloride 0.9%) 1,000 mls @ 100 mls/hr IV .Q10H [facility] Last Admin: 01/29/17 15:31 Dose: Not Given Ondansetron HCl (Zofran Inj) 4 mg IVP Q6 PRN PRN Reason: Nausea/Vomiting Last Admin: 01/29/17 07:53 Dose: 4 mg Pantoprazole Sodium (Protonix Ec Tab) 40 mg PO DAILY [facility] Last Admin: 01/29/17 09:20 Dose: 40 mg - Labs Labs: 01/29/17 08:14 01/28/17 07:05 Assessment and Plan - Assessment and Plan (Free Text) Assessment: Patient admitted with sickle cell cell crisis, seen and examined. Alert and orientedx3, denies acute pain, NAD. D/W DR Ariel Louis, advised for discharge to home today. Advised to follow up in the office in 1 week. Midline discontinued.
== END 2017-01-29 16:30 | disposition home or self-care (01) | DRG 574 ==
LOC: C.ER 08:38 → C.9E 11:22 → C.3T 13:07
PROVIDERS: ADMIT Internal Medicine Nephrology; ATTEND Internal Medicine Nephrology
PROC: 02HV33Z Insertion of Infusion Device into Superior Vena Cava, Percutaneous Approach (ICD-10-PCS; 2017-01-26)
PROC: 30233N1 Transfusion of Nonautologous Red Blood Cells into Peripheral Vein, Percutaneous Approach (ICD-10-PCS; principal; 2017-01-28)
DX: D57.00 Hb-SS disease with crisis, unspecified (principal); J18.9 Pneumonia, unspecified organism; E86.0 Dehydration; F11.10 Opioid abuse, uncomplicated; N39.0 Urinary tract infection, site not specified; E83.111 Hemochromatosis due to repeated red blood cell transfusions; F12.10 Cannabis abuse, uncomplicated; G89.29 Other chronic pain; H00.019 Hordeolum externum unspecified eye, unspecified eyelid; J06.9 Acute upper respiratory infection, unspecified; N93.8 Other specified abnormal uterine and vaginal bleeding; Z90.81 Acquired absence of spleen; Z90.49 Acquired absence of other specified parts of digestive tract; Z87.01 Personal history of pneumonia (recurrent)

== ENCOUNTER 2017-02-03 08:37 | Emergency (ER) | payer MEDICAID ==
[2017-02-03 08:37] VITALS: BMI 24.5
[2017-02-03 08:58] VITALS: TEMP 98.9
--- NOTE | 2017-02-03 10:01 | C.PDOC ---
History Of Present Illness Patient is a 31 y/o female, with PMHx of sickle cell disease, presents to the ED for evaluation of chronic generalized body pain. Patient is well known to ED with multiple prior visits for similar complaints. Notes being seen by PMD 4 days ago, but was not prescribed any pain meds. Otherwise, denies any chest pain , shortness of breath, fever, chills, nausea, vomiting, or any other associated symptoms at this time. Time Seen by Provider: 02/03/17 09:21 Chief Complaint (Nursing): Pain, Chronic History Per: Patient History/Exam Limitations: no limitations Onset/Duration Of Symptoms: Days Current Symptoms Are (Timing): Still Present Reports Recently: Seen In ED Recent travel outside of the [place]: No Additional History Per: Patient Past Medical History Reviewed: Historical Data, Nursing Documentation, Vital Signs Vital Signs: Last Vital Signs Temp 98.9 F 02/03/17 08:57 Pulse 78 02/03/17 11:33 Resp 16 02/03/17 11:33 BP 127/87 02/03/17 11:33 Pulse Ox 98 02/03/17 11:33 - Medical History PMH: Anemia, Bronchitis, Gall Bladder Disease, Pneumonia, Sickle Cell Disease Surgical History: Cholecystectomy - [facility] Procedures INFLUENZA VACCINATION (03/16/12) INJECT/INFUSE ELECTROLYT (09/07/13) INJECT/INFUSE NEC (01/25/14) INSERTION OF INFUSION DEV INTO SUP VENA CAVA, PERC APPROACH (11/19/16) NEBULIZER THERAPY (12/02/13) PACKED CELL TRANSFUSION (02/12/15) REMOVAL OF VAD FROM TRUNK SUBCU/FASCIA, OPEN APPROACH (04/15/16) TRANSFUSE NONAUT RED BLOOD CELLS IN PERIPH VEIN, PERC (04/15/16) VACCINATION NEC (08/22/13) Family History: States: Unknown Family Hx - Social History Hx Tobacco Use: No Hx Alcohol Use: No Hx Substance Use: No - Immunization History Hx Tetanus Toxoid Vaccination: Yes Hx Influenza Vaccination: Yes (2015) Hx Pneumococcal Vaccination: Yes (2014) Review Of Systems Except As Marked, All Systems Reviewed And Found Negative. Constitutional: Positive for: Other (generalized body pain). Negative for: Fever, Chills Cardiovascular: Negative for: Chest Pain, Palpitations Respiratory: Negative for: Shortness of Breath Gastrointestinal: Negative for: Nausea, Vomiting, Abdominal Pain Physical Exam - Physical Exam Appears: Non-toxic, No Acute Distress Skin: Warm, Dry Head: Atraumatic, Normacephalic Eye(s): bilateral: Normal Inspection Oral Mucosa: Moist Neck: Supple Cardiovascular: Rhythm Regular, No Murmur Respiratory: No Rales, No Rhonchi, No Wheezing Extremity: Bilateral: Atraumatic, Normal ROM Neurological/Psych: Oriented x3, Normal Speech ED Course And Treatment - Laboratory Results Result Diagrams: 02/03/17 10:07 Lab Interpretation: No Acute Changes O2 Sat by Pulse Oximetry: 96 (RA) Pulse Ox Interpretation: Normal Progress Note: Blood work ordered and reviewed, no acute changes from prior visits. Patient was given Dilaudid, Reglan, Benadryl, and Tylenol orally following sickle PO protocol. On re-evaluation, patient is resting comfortably, no acute distress. Patient stable for discharge. Disposition - Disposition Referrals: Enzo Louis MD [Staff Provider] - Disposition: HOME/ ROUTINE Disposition Time: 11:30 Condition: STABLE Instructions: Sickle Cell Crisis (DC) Forms: [employer] Connect (Yakut) - POA Present On Arrival: None - Clinical Impression Clinical Impression: Chronic pain, Sickle-cell disease with pain - PA / MEDIA SERVICES DIRECTOR / Resident Statement MD/DO has reviewed & agrees with the documentation as recorded. - Scribe Statement The provider has reviewed the documentation as recorded by the Scribe Annmarie Louis All medical record entries made by the Scribe were at my direction and personally dictated by me. I have reviewed the chart and agree that the record accurately reflects my personal performance of the history, physical exam, medical decision making, and the department course for this patient. I have also personally directed, reviewed, and agree with the discharge instructions and disposition.
[2017-02-03 10:23] LABS: HEMATOCRIT 26.7 % (34.0-47.0); MEAN CORPUSCULAR HEMOGLOBIN 32.6 pg (27.0-31.0); MEAN CORPUSCULAR HGB CONC 33.6 g/dL (33.0-37.0); MEAN PLATELET VOLUME 8.3 fL (7.2-11.7); RED CELL DISTRIBUTION WIDTH 26.7 % (11.5-14.5); WHITE BLOOD COUNT 14.4 K/uL (4.8-10.8)
[2017-02-03 10:25] LABS: RETIC% 6.4 % (0.5-1.5)
[2017-02-03 11:34] VITALS: BP 127/87; PULSE 78; RESP 16
[2017-02-03 13:27] VITALS: O2SAT 96
== END 2017-02-03 11:33 | disposition home or self-care (01) ==
LOC: C.ER 08:37
DX: G89.29 Other chronic pain (principal); D57.00 Hb-SS disease with crisis, unspecified

== ENCOUNTER 2017-02-06 08:50 | Emergency (ER) | payer MEDICAID ==
[2017-02-06 09:04] VITALS: BMI 25.4
[2017-02-06 09:06] VITALS: O2SAT 99
--- NOTE | 2017-02-06 09:17 | C.PDOC ---
History Of Present Illness Patient is a 31 y/o female, with PMH of sickle cell disease, presents to the ED for evaluation of chronic generalized body pain. Patient is well known to ED with multiple prior visits for similar complaints. Notes being seen by assistant professor nurse education Dr Hairston few days ago, but was not prescribed any pain meds. She states she is pending referral to sickle cell clinic at [facility]. Otherwise , denies any shortness of breath, fever, chills, nausea, vomiting, or any other associated symptoms at this time. Time Seen by Provider: 02/06/17 09:09 Chief Complaint (Nursing): Pain, Chronic History Per: Patient History/Exam Limitations: no limitations Onset/Duration Of Symptoms: Days Current Symptoms Are (Timing): Still Present Past Medical History Reviewed: Historical Data, Nursing Documentation, Vital Signs Vital Signs: Last Vital Signs Temp 98.5 F 02/06/17 11:14 Pulse 82 02/06/17 11:14 Resp 16 02/06/17 11:14 BP 112/70 02/06/17 11:14 Pulse Ox 99 02/06/17 11:14 - Medical History PMH: Anemia, Bronchitis, Gall Bladder Disease, Pneumonia, Sickle Cell Disease Surgical History: Cholecystectomy - [facility] Procedures INFLUENZA VACCINATION (03/16/12) INJECT/INFUSE ELECTROLYT (09/07/13) INJECT/INFUSE NEC (01/25/14) INSERTION OF INFUSION DEV INTO SUP VENA CAVA, PERC APPROACH (11/19/16) NEBULIZER THERAPY (12/02/13) PACKED CELL TRANSFUSION (02/12/15) REMOVAL OF VAD FROM TRUNK SUBCU/FASCIA, OPEN APPROACH (04/15/16) TRANSFUSE NONAUT RED BLOOD CELLS IN PERIPH VEIN, PERC (04/15/16) VACCINATION NEC (08/22/13) Family History: States: No Known Family Hx - Social History Hx Tobacco Use: No Hx Alcohol Use: No Hx Substance Use: No - Immunization History Hx Tetanus Toxoid Vaccination: Yes Hx Influenza Vaccination: Yes (2015) Hx Pneumococcal Vaccination: Yes (2014) Review Of Systems Constitutional: Negative for: Fever, Chills Respiratory: Negative for: Shortness of Breath Gastrointestinal: Negative for: Nausea, Vomiting Skin: Negative for: Rash Neurological: Positive for: Weakness. Negative for: Numbness Physical Exam - Physical Exam Appears: Well, Non-toxic, No Acute Distress Skin: Warm, Dry, No Rash Head: Atraumatic, Normacephalic Eye(s): bilateral: Normal Inspection Oral Mucosa: Moist Neck: Normal ROM Chest: Symmetrical Cardiovascular: Rhythm Regular, No Murmur Respiratory: Normal Breath Sounds, No Rales, No Rhonchi, No Wheezing Gastrointestinal/Abdominal: Bowel Sounds (Active), Soft, No Tenderness, No Guarding, No Rebound Extremity: Bilateral: Atraumatic, Normal Color And Temperature, Normal ROM Neurological/Psych: Oriented x3, Normal Speech Gait: Steady ED Course And Treatment - Laboratory Results Result Diagrams: 02/06/17 10:32 O2 Sat by Pulse Oximetry: 99 (RA) Pulse Ox Interpretation: Normal Medical Decision Making Medical Decision Making: Blood work ordered and reviewed, no acute changes from prior visits. Patient was given Dilaudid, Reglan, Benadryl, and Tylenol orally following sickle PO protocol. Patient reevaluated and still complains of pain. Dose of Morphine ordered. On second re-evaluation, patient is resting comfortably, no acute distress. Patient stable for discharge. Disposition Counseled Patient/Family Regarding: Diagnosis, Need For Followup - Disposition Disposition: HOME/ ROUTINE Disposition Time: 11:15 Condition: IMPROVED Additional Instructions: Please follow up with your primary doctor or clinic in [place] as recommended by your assistant professor nurse education Instructions: Chronic Pain (DC) Forms: [facility] (Croatian) - POA Present On Arrival: None - Clinical Impression Clinical Impression: Chronic pain disorder, Sickle cell disease - PA / SALESPERSON PARTS / Resident Statement MD/DO has reviewed & agrees with the documentation as recorded. - Scribe Statement The provider has reviewed the documentation as recorded by the Rosa Rodriguez All medical record entries made by the Rosa were at my direction and personally dictated by me. I have reviewed the chart and agree that the record accurately reflects my personal performance of the history, physical exam, medical decision making, and the department course for this patient. I have also personally directed, reviewed, and agree with the discharge instructions and disposition.
[2017-02-06 10:02] LABS: RBC URINE < 1 /hpf (0-3); URINE BILIRUBIN NEGATIVE (NEGATIVE); URINE BLOOD NEGATIVE (NEGATIVE); URINE COLOR Yellow (YELLOW); URINE GLUCOSE (UA) NORMAL (Normal); URINE HYALINE CAST 0-2 /lpf (0-2); URINE KETONE NEGATIVE (NEGATIVE); URINE LEUKOCYTE ESTERASE NEG Leu/uL (Negative); URINE PROTEIN NEGATIVE (NEGATIVE); URINE UROBILINOGEN NORMAL mg/dL (0.2-1.0); WBC URINE 7 /hpf (0-5)
[2017-02-06 10:38] LABS: BASO # 0.2 K/uL (0.0-0.2); BASO % 1.2 % (0.0-2.0); EOS # 0.3 K/uL (0.0-0.7); EOS % 1.8 % (0.0-4.0); HEMATOCRIT 24.5 % (34.0-47.0); LYMPH # 4.2 K/uL (1.0-4.3); LYMPH % 23.8 % (20.0-40.0); MEAN CELL VOLUME 96.8 fL (81.0-99.0); MEAN CORPUSCULAR HEMOGLOBIN 32.6 pg (27.0-31.0); MEAN CORPUSCULAR HGB CONC 33.7 g/dL (33.0-37.0); MONO # 1.2 K/uL (0.0-0.8); MONO % 6.7 % (0.0-10.0); NRBC % 0.6 % (0.0-2.0); RED CELL DISTRIBUTION WIDTH 27.4 % (11.5-14.5); WHITE BLOOD COUNT 17.4 K/uL (4.8-10.8)
[2017-02-06] MEDS ORDERED: Morphine 15 mg Immediate Release Tab PO STA (11:00)
[2017-02-06] MEDS ORDERED: Morphine 30 mg SR Tab PO ONE (11:13)
[2017-02-06 11:14] VITALS: BP 112/70; PULSE 82; RESP 16; TEMP 98.5
--- NOTE | 2017-02-15 09:27 | CARD ---
APPROVED REPORT EKG Measurement Heart [id number] <Conclusion> Normal sinus rhythm Normal ECG
== END 2017-02-06 11:16 | disposition home or self-care (01) ==
LOC: C.ER 08:50
DX: G89.29 Other chronic pain (principal); D57.1 Sickle-cell disease without crisis

== ENCOUNTER 2017-02-12 08:12 | Emergency (ER) | payer MEDICAID ==
[2017-02-12 08:12] VITALS: BMI 25.4
[2017-02-12 08:18] VITALS: TEMP 98.1
--- NOTE | 2017-02-12 08:42 | C.PDOC ---
History Of Present Illness 31 yr old female with PMHx of sickle cell disease, presents to the ER with complaints of chronic body pain exacerbation since yesterday. Patient is well to known to the ER for similar complaints. Patient admits, was seen yesterday at [facility]. Patient denies fever, dizziness, weakness, chest pain, SOB, dyspnea, diaphoresis, palpitation, abd. pain, nausea, vomiting, weakness or numbness. Ambulate to ED, appears comfortable, smiling, not in any apparent distress. Time Seen by Provider: 02/12/17 08:15 Chief Complaint (Nursing): Medical Clearance History Per: Patient History/Exam Limitations: no limitations Onset/Duration Of Symptoms: Persistent Past Medical History Reviewed: Historical Data, Nursing Documentation, Vital Signs Vital Signs: Last Vital Signs Temp 98.1 F 02/12/17 10:20 Pulse 80 02/12/17 10:20 Resp 16 02/12/17 10:20 BP 144/86 02/12/17 10:20 Pulse Ox 96 02/12/17 10:20 - Medical History PMH: Anemia, Bronchitis, Gall Bladder Disease, Pneumonia, Sickle Cell Disease Surgical History: Cholecystectomy - [facility] Procedures INFLUENZA VACCINATION (03/16/12) INJECT/INFUSE ELECTROLYT (09/07/13) INJECT/INFUSE NEC (01/25/14) INSERTION OF INFUSION DEV INTO SUP VENA CAVA, PERC APPROACH (01/25/17) NEBULIZER THERAPY (12/02/13) PACKED CELL TRANSFUSION (02/12/15) REMOVAL OF VAD FROM TRUNK SUBCU/FASCIA, OPEN APPROACH (04/15/16) TRANSFUSE NONAUT RED BLOOD CELLS IN PERIPH VEIN, PERC (01/25/17) VACCINATION NEC (08/22/13) Family History: States: No Known Family Hx - Social History Hx Tobacco Use: No Hx Alcohol Use: No Hx Substance Use: No - Immunization History Hx Tetanus Toxoid Vaccination: Yes Hx Influenza Vaccination: Yes (2015) Hx Pneumococcal Vaccination: Yes (2014) Review Of Systems Except As Marked, All Systems Reviewed And Found Negative. Constitutional: Positive for: Other ((+) Chronic body pain.). Negative for: Fever Cardiovascular: Negative for: Chest Pain Respiratory: Negative for: Shortness of Breath Gastrointestinal: Negative for: Nausea, Vomiting Neurological: Negative for: Weakness, Numbness Physical Exam - Physical Exam Appears: Non-toxic, No Acute Distress Skin: Warm, Dry, No Rash Head: Normacephalic Eye(s): bilateral: PERRL Nose: No Discharge Oral Mucosa: Moist, No Drooling Throat: No Erythema, No Exudate, No Drooling Neck: Supple Chest: Symmetrical, No Tenderness Cardiovascular: Rhythm Regular, No Murmur Respiratory: No Decreased Breath Sounds, No Accessory Muscle Use, No Rales, No Rhonchi, No Stridor, No Wheezing Gastrointestinal/Abdominal: Soft, No Tenderness, No Distention, No Guarding Back: No CVA Tenderness Extremity: No Pedal Edema, No Deformity, No Swelling Neurological/Psych: Oriented x3, Normal Speech, Normal Cognition, Normal Motor ED Course And Treatment - Laboratory Results Result Diagrams: 02/12/17 08:51 Lab Interpretation: No Changes Compared To Prior Results O2 Sat by Pulse Oximetry: 100 (RA ) Pulse Ox Interpretation: Normal Progress Note: On re-evaluation, pt is afebrile, hemodynamicaly stable. Non- toxic. Ambulatory in ED with stable gait. Tolerate PO well in ED. Pusleox 99 % RA. ENT: no acute findings. Lungs: CTA B/L, BS equal B/L. CVS: (+)S1S2, reg. Abd: benign. Neuorlogicaly intact. Diagnostics review and appears without changes compare to last visit 02/06/17. Pt has clinical finidngs c/w SCD , chronic pain, opioid dependance. Pt advised. ref. to F/u with PMD,PM in 2-3 days for re-eavl. return to ED if any worsening or new changes. Medical Decision Making Medical Decision Making: PLAN: * CBC * Benadryl PO * Dilaudid PO * Tylenol PO Disposition Counseled Patient/Family Regarding: Diagnosis, Need For Followup - Disposition Referrals: Enzo Louis MD [Staff Provider] - Disposition: HOME/ ROUTINE Disposition Time: 09:43 Condition: STABLE Additional Instructions: Follow up with PMD and Pain management in 2-3 days for re-evaluation. Consider opioid detox. Instructions: Sickle Cell Crisis (ED), Opioid Dependence (ED) Forms: [employer] [facility] (Swedish) - Clinical Impression Clinical Impression: Sickle cell disease, Chronic pain, Opioid abuse - PA / WAITER/WAITRESS TAVERN / Resident Statement MD/DO has reviewed & agrees with the documentation as recorded. - Scribe Statement The provider has reviewed the documentation as recorded by the Scribe Ariadna Willoughby All medical record entries made by the Scribe were at my direction and personally dictated by me. I have reviewed the chart and agree that the record accurately reflects my personal performance of the history, physical exam, medical decision making, and the department course for this patient. I have also personally directed, reviewed, and agree with the discharge instructions and disposition.
[2017-02-12 09:06] LABS: BASO # 0.2 K/uL (0.0-0.2); BASO % 1.1 % (0.0-2.0); EOS # 0.3 K/uL (0.0-0.7); EOS % 1.7 % (0.0-4.0); HEMATOCRIT 29.8 % (34.0-47.0); LYMPH # 2.8 K/uL (1.0-4.3); LYMPH % 19.1 % (20.0-40.0); MEAN CELL VOLUME 97.1 fL (81.0-99.0); MEAN CORPUSCULAR HEMOGLOBIN 32.9 pg (27.0-31.0); MEAN CORPUSCULAR HGB CONC 33.9 g/dL (33.0-37.0); MEAN PLATELET VOLUME 7.9 fL (7.2-11.7); MONO # 0.8 K/uL (0.0-0.8); MONO % 5.5 % (0.0-10.0); NRBC % 1.4 % (0.0-2.0); RED CELL DISTRIBUTION WIDTH 27.7 % (11.5-14.5); WHITE BLOOD COUNT 14.8 K/uL (4.8-10.8)
[2017-02-12 09:12] LABS: RETIC% 12.6 % (0.5-1.5)
[2017-02-12 10:21] VITALS: BP 144/86; PULSE 80; RESP 16
[2017-02-12 18:22] VITALS: O2SAT 100
== END 2017-02-12 10:21 | disposition home or self-care (01) ==
LOC: C.ER 08:12
DX: G89.29 Other chronic pain (principal); D57.1 Sickle-cell disease without crisis; F11.20 Opioid dependence, uncomplicated

== ENCOUNTER 2017-02-20 09:22 | Emergency (ER) | payer MEDICAID ==
[2017-02-20 09:22] VITALS: BMI 25.4
[2017-02-20 09:26] VITALS: O2SAT 98
[2017-02-20] MEDS ORDERED: Sodium Chloride 0.9% 1,000 ML IV SCH (10:00)
--- NOTE | 2017-02-20 10:20 | C.PDOC ---
History Of Present Illness 31 y/o female presents to ED for evaluation of constant chest pain for the last 2 days, and productive cough for the past week. Pt also complaints of chronic body pain. Denies taking any medications for the the pain at home. No fever, shortness of breath, or any other complaints at this time. Time Seen by Provider: 02/20/17 09:30 Chief Complaint (Nursing): Chest Pain History Per: Patient History/Exam Limitations: no limitations Onset/Duration Of Symptoms: Days (1 week), Persistent Current Symptoms Are (Timing): Still Present Quality: "Pain" Associated Symptoms: denies: Nausea, Dyspnea, Diaphoresis, Syncope Modifying Factors: None Exacerbating Factors: None Alleviating Factors: None Recent travel outside of the [place]: No Additional History Per: Patient Past Medical History Reviewed: Historical Data, Nursing Documentation, Vital Signs Vital Signs: Last Vital Signs Temp 98.0 F 02/20/17 13:36 Pulse 74 02/20/17 13:36 Resp 20 02/20/17 13:36 BP 146/88 02/20/17 13:36 Pulse Ox 98 02/20/17 13:36 - Medical History PMH: Anemia, Bronchitis, Gall Bladder Disease, Pneumonia, Sickle Cell Disease Surgical History: Cholecystectomy - [facility] Procedures INFLUENZA VACCINATION (03/16/12) INJECT/INFUSE ELECTROLYT (09/07/13) INJECT/INFUSE NEC (01/25/14) INSERTION OF INFUSION DEV INTO SUP VENA CAVA, PERC APPROACH (01/25/17) NEBULIZER THERAPY (12/02/13) PACKED CELL TRANSFUSION (02/12/15) REMOVAL OF VAD FROM TRUNK SUBCU/FASCIA, OPEN APPROACH (04/15/16) TRANSFUSE NONAUT RED BLOOD CELLS IN PERIPH VEIN, PERC (01/25/17) VACCINATION NEC (08/22/13) Family History: States: No Known Family Hx - Social History Hx Tobacco Use: No Hx Alcohol Use: No Hx Substance Use: No - Immunization History Hx Tetanus Toxoid Vaccination: Yes Hx Influenza Vaccination: Yes (2015) Hx Pneumococcal Vaccination: Yes (2014) Review Of Systems Except As Marked, All Systems Reviewed And Found Negative. Constitutional: Positive for: Other (chronic body pain). Negative for: Fever, Chills Cardiovascular: Positive for: Chest Pain. Negative for: Palpitations, Light Headedness Respiratory: Positive for: Cough. Negative for: Shortness of Breath, Sputum Gastrointestinal: Negative for: Nausea, Vomiting Physical Exam - Physical Exam Appears: Non-toxic, No Acute Distress Skin: Normal Color, Warm, Dry Head: Atraumatic, Normacephalic Eye(s): bilateral: Normal Inspection Oral Mucosa: Moist Neck: Normal ROM, Supple Chest: Symmetrical Cardiovascular: Rhythm Regular, No Murmur Respiratory: Normal Breath Sounds, No Accessory Muscle Use, No Rales, No Rhonchi , No Wheezing Gastrointestinal/Abdominal: Soft, No Tenderness Extremity: Bilateral: Atraumatic, Normal ROM Neurological/Psych: Oriented x3, Normal Speech, Normal Cognition ED Course And Treatment - Laboratory Results Result Diagrams: 02/20/17 10:17 02/20/17 10:17 ECG: Interpreted By Me, Viewed By Me ECG Rhythm: Sinus Rhythm Rate From EC (bpm) O2 Sat by Pulse Oximetry: 98 (on RA) Pulse Ox Interpretation: Normal Progress Note: Blood work, CXR, EKG ordered and reviewed. Pt was given Dilaudid , and IV fluids. Medical Decision Making Medical Decision Making: after three rounds of pain medication I offered the pt admission for further pain control if needed but she wished to be discharged. she appears well, no distress, resting quietly during her stay. CXR HISTORY: cough cp COMPARISON: Chest x-ray performed 01/25/17 TECHNIQUE: Chest PA and lateral FINDINGS: LUNGS: No focal consolidation. Please note that chest x-ray has limited sensitivity for the detection of pulmonary masses. PLEURA: No significant pleural effusion identified. Skin fold creates evidence of Mach artifact/lucency along the right lateral mid to lower lobe and to a lesser extent left lower lobe. No definite pneumothorax. CARDIOVASCULAR: Heart size appears within normal limits. OSSEOUS STRUCTURES: No acute osseous abnormality identified. VISUALIZED UPPER ABDOMEN: Unremarkable. OTHER FINDINGS: None. IMPRESSION: No focal consolidation. No significant pleural effusion. Skin fold creates evidence of Mach artifact/lucency along the right lateral mid to lower lobe and to a lesser extent left lower lobe. No definite pneumothorax. Disposition - Disposition Referrals: Enzo Louis MD [Staff Provider] - Disposition: HOME/ ROUTINE Disposition Time: 14:05 Condition: IMPROVED Prescriptions: Azithromycin [Zithromax] 250 mg PO DAILY #6 tab Forms: General Discharge Instructions, [facility] (Albanian) - Clinical Impression Clinical Impression: Sickle cell pain crisis - Scribe Statement The provider has reviewed the documentation as recorded by the Scribe Annmarie Louis All medical record entries made by the Scribe were at my direction and personally dictated by me. I have reviewed the chart and agree that the record accurately reflects my personal performance of the history, physical exam, medical decision making, and the department course for this patient. I have also personally directed, reviewed, and agree with the discharge instructions and disposition.
--- NOTE | 2017-02-20 10:23 | RAD ---
HISTORY: cough cp COMPARISON: Chest x-ray performed 01/25/17 TECHNIQUE: Chest PA and lateral FINDINGS: LUNGS: No focal consolidation. Please note that chest x-ray has limited sensitivity for the detection of pulmonary masses. PLEURA: No significant pleural effusion identified. Skin fold creates evidence of Mach artifact/lucency along the right lateral mid to lower lobe and to a lesser extent left lower lobe. No definite pneumothorax. CARDIOVASCULAR: Heart size appears within normal limits. OSSEOUS STRUCTURES: No acute osseous abnormality identified. VISUALIZED UPPER ABDOMEN: Unremarkable. OTHER FINDINGS: None. IMPRESSION: No focal consolidation. No significant pleural effusion. Skin fold creates evidence of Mach artifact/lucency along the right lateral mid to lower lobe and to a lesser extent left lower lobe. No definite pneumothorax.
[2017-02-20 10:26] LABS: BASO # 0.1 K/uL (0.0-0.2); BASO % 0.9 % (0.0-2.0); EOS # 0.2 K/uL (0.0-0.7); EOS % 1.5 % (0.0-4.0); HEMATOCRIT 33.3 % (34.0-47.0); LYMPH # 2.6 K/uL (1.0-4.3); MEAN CELL VOLUME 98.1 fL (81.0-99.0); MEAN CORPUSCULAR HEMOGLOBIN 32.9 pg (27.0-31.0); MEAN CORPUSCULAR HGB CONC 33.5 g/dL (33.0-37.0); MEAN PLATELET VOLUME 8.2 fL (7.2-11.7); MONO # 0.8 K/uL (0.0-0.8); NRBC % 1.6 % (0.0-2.0); RED CELL DISTRIBUTION WIDTH 21.1 % (11.5-14.5); WHITE BLOOD COUNT 13.8 K/uL (4.8-10.8)
[2017-02-20 10:32] LABS: ALB/GLOB RATIO 1.2 (1.0-2.1); ALKALINE PHOSPHATASE 150 U/L (38-126); ALT/SGPT 103 U/L (9-52); AST/SGOT 73 U/L (14-36); BILIRUBIN,TOTAL 1.7 mg/dL (0.2-1.3); BLOOD UREA NITROGEN 14 mg/dL (7-17); CALCIUM 9.7 mg/dl (8.6-10.4); CARBON DIOXIDE 24 mmol/L (22-30); CHLORIDE 104 mmol/L (98-107); GFR AFRICAN-AMERICAN > 60; GLUCOSE,RANDOM 97 mg/dL (65-105); POTASSIUM 4.2 mmol/L (3.6-5.2); SODIUM 143 mmol/L (132-148); TOTAL PROTEIN 7.4 g/dL (6.3-8.3)
[2017-02-20] MEDS ORDERED: Sodium Chloride 0.9% 1,000 ML ONE (10:45)
[2017-02-20] MEDS ORDERED: Azithromycin 500 MG in Sodium Chloride 0.9% 250 ML IVPB STA (10:46)
[2017-02-20 11:03] LABS: RETIC% 11.9 % (0.5-1.5)
[2017-02-20] MEDS ORDERED: Azithromycin 500mg/250ML NS 500 MG/250 ML BAG IVPB ONE (11:26)
[2017-02-20 13:36] VITALS: BP 146/88; PULSE 74; RESP 20; TEMP 98
--- NOTE | 2017-02-20 19:26 | CARD ---
APPROVED REPORT EKG Measurement Heart [id number] <Conclusion> Normal sinus rhythm Normal ECG
== END 2017-02-20 14:05 | disposition home or self-care (01) ==
LOC: C.ER 09:22
DX: D57.00 Hb-SS disease with crisis, unspecified (principal)
CPT/HCPCS: 71020; 80053; 84484; 85025; 85044; 93005; 96361; 96365; 96366; 99284; J0456; J7040; J7050

== ENCOUNTER 2017-02-28 11:14 | Emergency (ER) | payer MEDICAID ==
[2017-02-28 11:14] VITALS: BMI 25.4
--- NOTE | 2017-02-28 12:17 | C.PDOC ---
History Of Present Illness A 31 year old female, whose past medical history includes, anemia, bronchitis, pneumonia, and sickle cell disease, presents to the emergency room for overall body pain, which began a few days ago. The patient denies being on any medications at the moment. She also reports having a cold and having cold-like symptoms, which include runny nose, cough, chest pain. The patient denies any fever, chills, nausea, vomiting, diarrhea, or any other complaints at this time. Time Seen by Provider: 02/28/17 11:53 Chief Complaint (Nursing): Pain, Chronic History Per: Patient History/Exam Limitations: no limitations Onset/Duration Of Symptoms: Days Current Symptoms Are (Timing): Still Present Pain Scale Rating Of: 6 Past Medical History Vital Signs: Last Vital Signs Temp 98.2 F 02/28/17 14:58 Pulse 92 H 02/28/17 14:58 Resp 20 02/28/17 14:58 BP 107/70 02/28/17 14:58 Pulse Ox 97 02/28/17 14:58 - Medical History PMH: Anemia, Bronchitis, Gall Bladder Disease, Pneumonia, Sickle Cell Disease Surgical History: Cholecystectomy - [facility] Procedures INFLUENZA VACCINATION (03/16/12) INJECT/INFUSE ELECTROLYT (09/07/13) INJECT/INFUSE NEC (01/25/14) INSERTION OF INFUSION DEV INTO SUP VENA CAVA, PERC APPROACH (01/25/17) NEBULIZER THERAPY (12/02/13) PACKED CELL TRANSFUSION (02/12/15) REMOVAL OF VAD FROM TRUNK SUBCU/FASCIA, OPEN APPROACH (04/15/16) TRANSFUSE NONAUT RED BLOOD CELLS IN PERIPH VEIN, PERC (01/25/17) VACCINATION NEC (08/22/13) Family History: States: No Known Family Hx - Social History Hx Tobacco Use: No Hx Alcohol Use: No Hx Substance Use: No - Immunization History Hx Tetanus Toxoid Vaccination: Yes Hx Influenza Vaccination: Yes (2015) Hx Pneumococcal Vaccination: Yes (2014) Review Of Systems Except As Marked, All Systems Reviewed And Found Negative. Constitutional: Positive for: Other (generalized body pain ). Negative for: Fever, Chills ENT: Positive for: Nose Discharge, Nose Congestion Cardiovascular: Positive for: Chest Pain Respiratory: Positive for: Cough Gastrointestinal: Negative for: Nausea, Vomiting, Diarrhea Genitourinary: Positive for: Dysuria Physical Exam - Physical Exam Appears: Well, No Acute Distress Skin: Normal Color, Warm, Dry Head: Atraumatic, Normacephalic Eye(s): bilateral: Normal Inspection, PERRL, EOMI Nose: Normal Oral Mucosa: Moist Throat: Normal Neck: Normal Cardiovascular: Rhythm Regular Respiratory: Normal Breath Sounds Gastrointestinal/Abdominal: Normal Exam Back: Normal Inspection Extremity: Normal ROM ED Course And Treatment O2 Sat by Pulse Oximetry: 98 Medical Decision Making Medical Decision Making: Treatment Plan: -- EKG Progress Notes: Disposition Counseled Patient/Family Regarding: Diagnosis, Need For Followup - Disposition Referrals: Enzo Louis MD [Staff Provider] - Disposition: HOME/ ROUTINE Disposition Time: 14:54 Condition: STABLE Instructions: Sickle Cell Crisis (ED) Forms: General Discharge Instructions - Clinical Impression Clinical Impression: Sickle cell anemia with pain - Scribe Statement The provider has reviewed the documentation as recorded by the Scribe Jada Gold All medical record entries made by the Scribe were at my direction and personally dictated by me. I have reviewed the chart and agree that the record accurately reflects my personal performance of the history, physical exam, medical decision making, and the department course for this patient. I have also personally directed, reviewed, and agree with the discharge instructions and disposition.
[2017-02-28 14:59] VITALS: BP 107/70; PULSE 92; RESP 20; TEMP 98.2
[2017-03-01 18:51] VITALS: O2SAT 98
--- NOTE | 2017-03-03 22:42 | CARD ---
APPROVED REPORT EKG Measurement Heart [id number] <Conclusion> Sinus tachycardia Otherwise normal ECG
== END 2017-02-28 15:10 | disposition home or self-care (01) ==
LOC: C.ER 11:14
DX: D57.00 Hb-SS disease with crisis, unspecified (principal)

== ENCOUNTER 2017-03-03 23:36 | Emergency (ER) | payer MEDICAID ==
[2017-03-03 23:37] VITALS: BMI 25.4
== END 2017-03-04 00:20 | disposition left against medical advice (07) ==
LOC: C.ER 23:36
DX: R07.9 Chest pain, unspecified (principal); Z02.9 Encounter for administrative examinations, unspecified

== ENCOUNTER 2017-03-05 12:02 | Emergency (ER) | payer MEDICAID ==
[2017-03-05 12:02] VITALS: BMI 25.4
[2017-03-05 12:24] VITALS: RESP 16
--- NOTE | 2017-03-05 13:14 | RAD ---
HISTORY: COUGH COMPARISON: Chest x-ray performed 02/20/17 TECHNIQUE: Chest, one view. FINDINGS: LUNGS: No focal consolidation. PLEURA: No significant pleural effusion identified. No definite pneumothorax . CARDIOVASCULAR: The cardiomediastinal silhouette appears within normal limits of size. OSSEOUS STRUCTURES: No acute osseous abnormality identified. VISUALIZED UPPER ABDOMEN: Unremarkable. OTHER FINDINGS: None. IMPRESSION: No focal consolidation, significant pleural effusion, or definite pneumothorax identified.
--- NOTE | 2017-03-05 13:18 | C.PDOC ---
History Of Present Illness 31 year old female, with PMHx of sickle cell disease, presents to ED for evaluation of chronic body pain, worse in the last day. Patient denies chest pain, shortness of breath, nausea, vomiting, abdominal pain, cough, fever, or chills. Time Seen by Provider: 03/05/17 12:37 Chief Complaint (Nursing): Pain, Chronic History Per: Patient History/Exam Limitations: no limitations Onset/Duration Of Symptoms: Gradual Current Symptoms Are (Timing): Still Present Severity: Moderate Reports Recently: Seen In ED Additional History Per: Prior Records Past Medical History Reviewed: Historical Data, Nursing Documentation, Vital Signs Vital Signs: Last Vital Signs Temp 97.8 F 03/05/17 16:03 Pulse 74 03/05/17 16:03 Resp 16 03/05/17 16:03 BP 130/67 03/05/17 16:03 Pulse Ox 98 03/05/17 16:03 - Medical History PMH: Anemia, Bronchitis, Gall Bladder Disease, Pneumonia, Sickle Cell Disease Surgical History: Cholecystectomy - [facility] Procedures INFLUENZA VACCINATION (03/16/12) INJECT/INFUSE ELECTROLYT (09/07/13) INJECT/INFUSE NEC (01/25/14) INSERTION OF INFUSION DEV INTO SUP VENA CAVA, PERC APPROACH (01/25/17) NEBULIZER THERAPY (12/02/13) PACKED CELL TRANSFUSION (02/12/15) REMOVAL OF VAD FROM TRUNK SUBCU/FASCIA, OPEN APPROACH (04/15/16) TRANSFUSE NONAUT RED BLOOD CELLS IN PERIPH VEIN, PERC (01/25/17) VACCINATION NEC (08/22/13) Family History: States: No Known Family Hx - Social History Hx Tobacco Use: No Hx Alcohol Use: No Hx Substance Use: No - Immunization History Hx Tetanus Toxoid Vaccination: Yes Hx Influenza Vaccination: Yes (2015) Hx Pneumococcal Vaccination: Yes (2014) Review Of Systems Except As Marked, All Systems Reviewed And Found Negative. Constitutional: Positive for: Other (generalized body pain). Negative for: Fever, Chills Cardiovascular: Negative for: Chest Pain, Palpitations Respiratory: Negative for: Cough, Shortness of Breath Gastrointestinal: Negative for: Nausea, Vomiting, Abdominal Pain Skin: Negative for: Rash, Bruising Neurological: Negative for: Headache, Dizziness Physical Exam - Physical Exam Appears: Well, Non-toxic, No Acute Distress Skin: Warm, Dry, No Rash Eye(s): bilateral: Normal Inspection Oral Mucosa: Moist Neck: Supple Cardiovascular: Rhythm Regular Respiratory: Normal Breath Sounds, No Rales, No Rhonchi, No Wheezing Gastrointestinal/Abdominal: Normal Exam, Bowel Sounds, Soft, No Tenderness Extremity: Normal ROM, No Pedal Edema Neurological/Psych: Oriented x3 Gait: Steady ED Course And Treatment - Laboratory Results Result Diagrams: 03/05/17 13:39 03/05/17 13:39 O2 Sat by Pulse Oximetry: 100 (on RA) Pulse Ox Interpretation: Normal - Radiology CXR: Interpreted by Me, Viewed By Me CXR Interpretation: Yes: No Acute Disease. No: Infiltrates Progress Note: Blood work, UA/Upreg, CXR ordered and reviewed. Patient given PO sickle cell pain protocol (PO Dilaudid, benadryl) x 3. Reevaluation Time: 15:55 Reassessment Condition: Improved (On reassessment, patient states she is feeling better and would like to be discharged home. Patient is well appearing , with normal vitals. She was instructed to follow up with PMD in 1-2 days, and understands she should return to ED if symptoms worsen.) Disposition Counseled Patient/Family Regarding: Studies Performed, Diagnosis, Need For Followup - Disposition Referrals: Enzo Louis MD [Staff Provider] - Disposition: HOME/ ROUTINE Disposition Time: 15:55 Condition: STABLE Additional Instructions: FOLLOW UP WITH YOUR DOCTOR IN 1-2 DAYS RETURN TO ER IF SYMPTOMS WORSEN Instructions: Sickle Cell Anemia (DC) Forms: [employer] (Liberian) Print Language: TRINIDADIAN - POA Present On Arrival: None - Clinical Impression Clinical Impression: Sickle cell disease, Chronic pain - Scribe Statement The provider has reviewed the documentation as recorded by the Scribe Annmarie Louis All medical record entries made by the Scribe were at my direction and personally dictated by me. I have reviewed the chart and agree that the record accurately reflects my personal performance of the history, physical exam, medical decision making, and the department course for this patient. I have also personally directed, reviewed, and agree with the discharge instructions and disposition.
[2017-03-05 13:44] LABS: BASO # 0.1 K/uL (0.0-0.2); BASO % 0.4 % (0.0-2.0); EOS # 0.2 K/uL (0.0-0.7); EOS % 1.4 % (0.0-4.0); HEMATOCRIT 24.2 % (34.0-47.0); LYMPH % 36.5 % (20.0-40.0); MEAN CELL VOLUME 93.1 fL (81.0-99.0); MEAN CORPUSCULAR HEMOGLOBIN 32.4 pg (27.0-31.0); MEAN CORPUSCULAR HGB CONC 34.8 g/dL (33.0-37.0); MEAN PLATELET VOLUME 8.1 fL (7.2-11.7); MONO # 1.3 K/uL (0.0-0.8); MONO % 9.9 % (0.0-10.0); NRBC % 0.2 % (0.0-2.0); RED CELL DISTRIBUTION WIDTH 21.3 % (11.5-14.5); WHITE BLOOD COUNT 13.6 K/uL (4.8-10.8)
[2017-03-05 13:50] LABS: CHLORIDE 102 mmol/L (98-107); SODIUM 141 mmol/L (132-148)
[2017-03-05 13:53] LABS: ALB/GLOB RATIO 1.4 (1.0-2.1); ALKALINE PHOSPHATASE 100 U/L (38-126); ALT/SGPT 115 U/L (9-52); AST/SGOT 64 U/L (14-36); BILIRUBIN,TOTAL 1.3 mg/dL (0.2-1.3); BLOOD UREA NITROGEN 9 mg/dL (7-17); CALCIUM 9.4 mg/dl (8.6-10.4); CARBON DIOXIDE 26 mmol/L (22-30); GFR AFRICAN-AMERICAN > 60; GLUCOSE,RANDOM 100 mg/dL (65-105); TOTAL PROTEIN 7.3 g/dL (6.3-8.3)
[2017-03-05 16:03] VITALS: BP 130/67; PULSE 74; TEMP 97.8
[2017-03-07 14:21] VITALS: O2SAT 100
== END 2017-03-05 16:03 | disposition home or self-care (01) ==
LOC: C.ER 12:02
DX: D57.1 Sickle-cell disease without crisis (principal); G89.29 Other chronic pain
CPT/HCPCS: 71010; 80053; 84703; 85025; 85044; 96372; 99285; J2765

== ENCOUNTER 2017-03-07 08:08 | Emergency (ER) | payer MEDICAID ==
[2017-03-07 08:09] VITALS: BMI 25.4
--- NOTE | 2017-03-07 09:43 | C.PDOC ---
History Of Present Illness Dotty Camarena is a 31 year old female, with a past medical history of sickle cell anemia, who presents to the emergency department complaining of chest pain associated with cough and body aches onset for 1 week. Patient is well known to ED staff for multiple prior visits of similar complaints. Otherwise, patient denies any chest pain, shortness of breath, nausea, vomiting, abdominal pain, cough, fever, or chills. No other complaints. PMD: None provided. Time Seen by Provider: 03/07/17 08:22 Chief Complaint (Nursing): Chest Pain History Per: Patient History/Exam Limitations: no limitations Onset/Duration Of Symptoms: Days (x1 week) Past Medical History Reviewed: Historical Data, Nursing Documentation, Vital Signs Vital Signs: Last Vital Signs Temp 97.9 F 03/07/17 11:26 Pulse 72 03/07/17 11:26 Resp 18 03/07/17 11:26 BP 109/72 03/07/17 11:26 Pulse Ox 98 03/07/17 11:26 - Medical History PMH: Anemia, Bronchitis, Gall Bladder Disease, Pneumonia, Sickle Cell Disease Surgical History: Cholecystectomy - [facility] Procedures INFLUENZA VACCINATION (03/16/12) INJECT/INFUSE ELECTROLYT (09/07/13) INJECT/INFUSE NEC (01/25/14) INSERTION OF INFUSION DEV INTO SUP VENA CAVA, PERC APPROACH (01/25/17) NEBULIZER THERAPY (12/02/13) PACKED CELL TRANSFUSION (02/12/15) REMOVAL OF VAD FROM TRUNK SUBCU/FASCIA, OPEN APPROACH (04/15/16) TRANSFUSE NONAUT RED BLOOD CELLS IN PERIPH VEIN, PERC (01/25/17) VACCINATION NEC (08/22/13) Family History: States: Unknown Family Hx - Social History Hx Tobacco Use: No Hx Alcohol Use: No Hx Substance Use: Yes ([facility]) - Immunization History Hx Tetanus Toxoid Vaccination: Yes Hx Influenza Vaccination: Yes (2015) Hx Pneumococcal Vaccination: Yes (2014) Review Of Systems Except As Marked, All Systems Reviewed And Found Negative. Constitutional: Negative for: Fever, Chills Respiratory: Positive for: Cough. Negative for: Shortness of Breath Gastrointestinal: Negative for: Nausea, Vomiting, Abdominal Pain Physical Exam - Physical Exam Appears: No Acute Distress Skin: Normal Color, Warm, Dry, No Rash Head: Atraumatic, Normacephalic Eye(s): bilateral: Normal Inspection, PERRL, EOMI Ear(s): Bilateral: Normal Nose: Normal Throat: Normal, No Erythema, No Exudate Neck: Normal, Supple Chest: Symmetrical, No Tenderness Cardiovascular: Rhythm Regular, No Friction Rub, No Murmur Respiratory: Normal Breath Sounds, No Rhonchi, No Wheezing Gastrointestinal/Abdominal: Normal Exam, Bowel Sounds, Soft, No Tenderness Back: No CVA Tenderness Extremity: Normal ROM, No Swelling Neurological/Psych: Normal Speech, Normal Cognition, Normal Motor, Normal Sensation Gait: Steady ED Course And Treatment ECG: Interpreted By Me ECG Rhythm: Sinus Rhythm (NORMAL) Rate From EC O2 Sat by Pulse Oximetry: 98 (RA) Pulse Ox Interpretation: Normal Medical Decision Making Medical Decision Making: Old records reviewed, the patient was last seen in the ED 2 days ago for similar symptoms. CXR and labs were performed and were negative. Patient is currently requesting pain medications. Dilaudid IM ordered. Initial Plan: --CXR (PA/LAT) [RAD] --Benadryl 25 mg PO --Dilaudid 16 mg PO --Reglan 10 mg PO --reevaluation 1054 FINDINGS: LUNGS: Mild venous congestion. Diffuse increased interstitial lung markings. PLEURA: No significant pleural effusion identified. No pneumothorax apparent. CARDIOVASCULAR: Normal. OSSEOUS STRUCTURES: No significant abnormalities. VISUALIZED UPPER ABDOMEN: Normal. OTHER FINDINGS: None. IMPRESSION: Mild venous congestion. Diffuse increased interstitial lung markings. On re-exam, the patient reports improvement of symptoms. Lungs are CTA, heart is RRR, abdomen is soft, non-tender Abdomen is soft, non-tender and patient is tolerating PO well. Ambulatory in the ED with steady gait. Follow up with the medical doctor within 1-2 days. Return if worsened. Scribe Attestation Written by Mendez Zimmer acting as a scribe for Bethany LAZARO All medical record entries made by the Scribe were at my direction and personally dictated by me. I have reviewed the chart and agree that the record accurately reflects my personal performance of the history, physical exam, medical decision making, and the department course for this patient. I have also personally directed, reviewed, and agree with the discharge instructions and disposition. Disposition - Disposition Referrals: Enzo Louis MD [Staff Provider] - Disposition: HOME/ ROUTINE Disposition Time: 11:14 Condition: GOOD Additional Instructions: Follow up with the doctor within 1-2 days without fail. REturn if worsened Prescriptions: Cyclobenzaprine [Flexeril] 5 mg PO TID #21 tab Loratadine [Claritin] 10 mg PO DAILY #10 tab predniSONE [Prednisone] 10 mg PO BID #10 tab Instructions: Viral Syndrome (ED) Forms: [facility] (Romanian) - Clinical Impression Clinical Impression: Chronic pain disorder, Total body pain, Viral upper respiratory infection
--- NOTE | 2017-03-07 10:55 | RAD ---
HISTORY: chest pain COMPARISON: 03/05/2017 TECHNIQUE: Chest PA and lateral FINDINGS: LUNGS: Mild venous congestion. Diffuse increased interstitial lung markings. PLEURA: No significant pleural effusion identified. No pneumothorax apparent. CARDIOVASCULAR: Normal. OSSEOUS STRUCTURES: No significant abnormalities. VISUALIZED UPPER ABDOMEN: Normal. OTHER FINDINGS: None. IMPRESSION: Mild venous congestion. Diffuse increased interstitial lung markings.
[2017-03-07 11:15] VITALS: O2SAT 98
[2017-03-07 11:28] VITALS: BP 109/72; PULSE 72; RESP 18; TEMP 97.9
--- NOTE | 2017-03-09 21:58 | CARD ---
APPROVED REPORT EKG Measurement Heart [id number] <Conclusion> Normal sinus rhythm Normal ECG
== END 2017-03-07 11:25 | disposition home or self-care (01) ==
LOC: C.ER 08:08
DX: G89.29 Other chronic pain (principal); J06.9 Acute upper respiratory infection, unspecified

== ENCOUNTER 2017-03-12 10:53 | Emergency (ER) | payer MEDICAID ==
[2017-03-12 10:54] VITALS: BMI 25.4
--- NOTE | 2017-03-12 12:31 | C.PDOC ---
History Of Present Illness 31 y/o female with a Hx of sickle cell disease, presents to the ED c/o generalized pain that began yesterday. Pain is similar to her previous visits to the ED. Patient usually presents with chronic reoccurrence of pain. Patient last visit from her PMD was 4 days prior. Denies fever, SOB, or any other complaints. Time Seen by Provider: 03/12/17 11:10 Chief Complaint (Nursing): Pain, Chronic History Per: Patient History/Exam Limitations: no limitations Onset/Duration Of Symptoms: Days (Yesterday) Current Symptoms Are (Timing): Still Present Severity: Mild Reports Recently: Treated By A Physician (4 days prior) Recent travel outside of the [place]: No Additional History Per: Patient Past Medical History Reviewed: Historical Data, Nursing Documentation, Vital Signs Vital Signs: Last Vital Signs Temp 97.4 F L 03/12/17 14:04 Pulse 87 03/12/17 14:04 Resp 20 03/12/17 14:04 BP 102/64 03/12/17 14:04 Pulse Ox 97 03/12/17 14:16 - Medical History PMH: Anemia, Bronchitis, Gall Bladder Disease, Pneumonia, Sickle Cell Disease Surgical History: Cholecystectomy - [facility] Procedures INFLUENZA VACCINATION (03/16/12) INJECT/INFUSE ELECTROLYT (09/07/13) INJECT/INFUSE NEC (01/25/14) INSERTION OF INFUSION DEV INTO SUP VENA CAVA, PERC APPROACH (01/25/17) NEBULIZER THERAPY (12/02/13) PACKED CELL TRANSFUSION (02/12/15) REMOVAL OF VAD FROM TRUNK SUBCU/FASCIA, OPEN APPROACH (04/15/16) TRANSFUSE NONAUT RED BLOOD CELLS IN PERIPH VEIN, PERC (01/25/17) VACCINATION NEC (08/22/13) Family History: States: Unknown Family Hx - Social History Hx Tobacco Use: No Hx Alcohol Use: No Hx Substance Use: Yes ([facility]) - Immunization History Hx Tetanus Toxoid Vaccination: Yes Hx Influenza Vaccination: Yes (2015) Hx Pneumococcal Vaccination: Yes (2014) Review Of Systems Except As Marked, All Systems Reviewed And Found Negative. Constitutional: Positive for: Other (Generalized pain). Negative for: Fever Respiratory: Negative for: Shortness of Breath Physical Exam - Physical Exam Appears: Non-toxic, No Acute Distress Skin: Warm, Dry, No Rash Head: Atraumatic, Normacephalic Eye(s): bilateral: Normal Inspection Oral Mucosa: Moist Throat: Normal, No Erythema Neck: Supple Cardiovascular: Rhythm Regular, No Murmur Respiratory: Normal Breath Sounds, No Rales, No Rhonchi, No Wheezing Gastrointestinal/Abdominal: Soft, No Tenderness Back: Normal Inspection, No CVA Tenderness Extremity: Normal ROM, Capillary Refill (<2secs) Neurological/Psych: Oriented x3, Normal Speech, Normal Cognition Gait: Steady ED Course And Treatment ECG: Interpreted By Me, Viewed By Me (Also by Dr. Mcgovern) ECG Rhythm: Sinus Rhythm ECG Interpretation: No Acute Changes Rate From EC O2 Sat by Pulse Oximetry: 97 (RA) Pulse Ox Interpretation: Normal Progress Note: Sickle cell po protocol for pain crisis started. Plans: EKG, Benadryl, Dilaudid, Reglan. 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 Disposition - Disposition Referrals: Enzo Louis MD [Staff Provider] - Disposition: HOME/ ROUTINE Disposition Time: 14:14 Condition: STABLE Additional Instructions: Follow up with your PMD within 1-2 days. Return to Ed if feel worse. Instructions: Sickle Cell Crisis (ED) Forms: [facility] (Turkish) - Clinical Impression Clinical Impression: Sickle cell crisis - Scribe Statement The provider has reviewed the documentation as recorded by the Scribe Katey valladares All medical record entries made by the Scribe were at my direction and personally dictated by me. I have reviewed the chart and agree that the record accurately reflects my personal performance of the history, physical exam, medical decision making, and the department course for this patient. I have also personally directed, reviewed, and agree with the discharge instructions and disposition.
[2017-03-12 14:05] VITALS: BP 102/64; PULSE 87; RESP 20; TEMP 97.4
[2017-03-12 14:16] VITALS: O2SAT 97
--- NOTE | 2017-03-13 14:25 | CARD ---
APPROVED REPORT EKG Measurement Heart [id number] CO 150P57 [id number] <Conclusion> Normal sinus rhythm Normal ECG
== END 2017-03-12 14:51 | disposition home or self-care (01) ==
LOC: C.ER 10:53
DX: D57.00 Hb-SS disease with crisis, unspecified (principal)

== ENCOUNTER 2017-03-26 08:21 | Emergency (ER) | payer MEDICAID ==
[2017-03-26 08:21] VITALS: BMI 25.4
[2017-03-26 08:42] VITALS: O2SAT 97
--- NOTE | 2017-03-26 08:45 | C.PDOC ---
History Of Present Illness 31 y/o female, history of sickle cell disease, presents to ED with c/o diffuse body aches, consistent with usual chronic pain. Patient denies fever, chills, nausea, vomiting. Patient is well known to ER staff with multiple similar prior presentations. Otherwise, denies any other complaints. Time Seen by Provider: 03/26/17 08:44 Chief Complaint (Nursing): Pain, Chronic History Per: Patient History/Exam Limitations: no limitations Onset/Duration Of Symptoms: Persistent Current Symptoms Are (Timing): Still Present Pain Scale Rating Of: 4 Recent travel outside of the [place]: No Past Medical History Reviewed: Historical Data, Nursing Documentation, Vital Signs Vital Signs: Last Vital Signs Temp 98.3 F 03/26/17 08:34 Pulse 80 03/26/17 08:34 Resp 18 03/26/17 08:34 BP 147/80 03/26/17 08:34 Pulse Ox 97 03/26/17 09:48 - Medical History PMH: Anemia, Bronchitis, Gall Bladder Disease, Pneumonia, Sickle Cell Disease Surgical History: Cholecystectomy - [facility] Procedures INFLUENZA VACCINATION (03/16/12) INJECT/INFUSE ELECTROLYT (09/07/13) INJECT/INFUSE NEC (01/25/14) INSERTION OF INFUSION DEV INTO SUP VENA CAVA, PERC APPROACH (01/25/17) NEBULIZER THERAPY (12/02/13) PACKED CELL TRANSFUSION (02/12/15) REMOVAL OF VAD FROM TRUNK SUBCU/FASCIA, OPEN APPROACH (04/15/16) TRANSFUSE NONAUT RED BLOOD CELLS IN PERIPH VEIN, PERC (01/25/17) VACCINATION NEC (08/22/13) Family History: States: Unknown Family Hx - Social History Hx Tobacco Use: No Hx Alcohol Use: No Hx Substance Use: Yes ([facility]) - Immunization History Hx Tetanus Toxoid Vaccination: Yes Hx Influenza Vaccination: Yes (2015) Hx Pneumococcal Vaccination: Yes (2014) Review Of Systems Constitutional: Positive for: Malaise. Negative for: Fever, Chills Cardiovascular: Negative for: Chest Pain Respiratory: Negative for: Cough, Shortness of Breath Gastrointestinal: Negative for: Nausea, Vomiting Physical Exam - Physical Exam Appears: Non-toxic, No Acute Distress Skin: Warm, Dry Head: Atraumatic Oral Mucosa: Moist Chest: Symmetrical Cardiovascular: Rhythm Regular Respiratory: No Rales, No Rhonchi, No Wheezing Gastrointestinal/Abdominal: Soft, No Tenderness Extremity: Normal ROM Neurological/Psych: Oriented x3, Normal Speech, Normal Cognition ED Course And Treatment - Laboratory Results Result Diagrams: 03/26/17 09:27 03/26/17 09:27 ECG: Interpreted By Me ECG Rhythm: Sinus Rhythm (66), Nonspecific Changes ECG Interpretation: No Acute Changes Rate From EC (bpm) O2 Sat by Pulse Oximetry: 97 (RA) Pulse Ox Interpretation: Normal - Radiology CXR: Interpreted by Me, Viewed By Me CXR Interpretation: No: Infiltrates, Fracture, Pnemothorax Progress Note: Treated with Benadryl, Zofran, IVFs. EKG, labs ordered. Reevaluation Time: 12:16 Reassessment Condition: Improved Disposition Counseled Patient/Family Regarding: Studies Performed, Diagnosis, Need For Followup - Disposition Referrals: Enzo Louis MD [Staff Provider] - Disposition: HOME/ ROUTINE Disposition Time: 08:45 Condition: FAIR Instructions: Sickle Cell Anemia (DC) Forms: [facility] (Lao) - Clinical Impression Clinical Impression: Sickle cell anemia - Scribe Statement The provider has reviewed the documentation as recorded by the Scribe SM All medical record entries made by the Scribe were at my direction and personally dictated by me. I have reviewed the chart and agree that the record accurately reflects my personal performance of the history, physical exam, medical decision making, and the department course for this patient. I have also personally directed, reviewed, and agree with the discharge instructions and disposition.
[2017-03-26] MEDS ORDERED: DiphenhydrAMINE 50 mg/ml Inj IVP STA (08:48)
[2017-03-26] MEDS ORDERED: Sodium Chloride 0.9% 2,000 ML IV ONE (08:48)
[2017-03-26] MEDS ORDERED: DiphenhydrAMINE 50 mg/ml Inj ONE (09:00)
[2017-03-26 09:23] LABS: RBC URINE 1 /hpf (0-3); URINE BACTERIA RARE (<OCC); URINE BILIRUBIN NEGATIVE (NEGATIVE); URINE BLOOD NEGATIVE (NEGATIVE); URINE COLOR Yellow (YELLOW); URINE GLUCOSE (UA) NORMAL (Normal); URINE KETONE NEGATIVE (NEGATIVE); URINE LEUKOCYTE ESTERASE NEG Leu/uL (Negative); URINE PROTEIN NEGATIVE (NEGATIVE); URINE UROBILINOGEN NORMAL mg/dL (0.2-1.0); WBC URINE < 1 /hpf (0-5)
[2017-03-26 09:42] LABS: CHLORIDE 100 mmol/L (98-107); POTASSIUM 3.7 mmol/L (3.6-5.2); SODIUM 136 mmol/L (132-148)
[2017-03-26 09:44] LABS: GFR AFRICAN-AMERICAN > 60
[2017-03-26 09:45] LABS: ALB/GLOB RATIO 1.1 (1.0-2.1); ALKALINE PHOSPHATASE 136 U/L (38-126); ALT/SGPT 87 U/L (9-52); AST/SGOT 49 U/L (14-36); BILIRUBIN,TOTAL 2.2 mg/dL (0.2-1.3); BLOOD UREA NITROGEN 14 mg/dL (7-17); CALCIUM 9.3 mg/dl (8.6-10.4); CARBON DIOXIDE 24 mmol/L (22-30); GLUCOSE,RANDOM 78 mg/dL (65-105); TOTAL PROTEIN 7.9 g/dL (6.3-8.3)
[2017-03-26 09:47] LABS: BASO # 0.1 K/uL (0.0-0.2); BASO % 0.8 % (0.0-2.0); EOS # 0.3 K/uL (0.0-0.7); EOS % 2.2 % (0.0-4.0); HEMATOCRIT 29.5 % (34.0-47.0); LYMPH # 4.3 K/uL (1.0-4.3); LYMPH % 27.3 % (20.0-40.0); MEAN CELL VOLUME 94.9 fL (81.0-99.0); MEAN CORPUSCULAR HGB CONC 33.7 g/dL (33.0-37.0); MEAN PLATELET VOLUME 8.3 fL (7.2-11.7); MONO # 1.3 K/uL (0.0-0.8); MONO % 8.5 % (0.0-10.0); NRBC % 0.5 % (0.0-2.0); WHITE BLOOD COUNT 15.6 K/uL (4.8-10.8)
[2017-03-26 12:20] VITALS: BP 132/78; PULSE 78; RESP 20; TEMP 97.9
--- NOTE | 2017-03-29 18:37 | CARD ---
APPROVED REPORT EKG Measurement Heart [id number] <Conclusion> Normal sinus rhythm Normal ECG
== END 2017-03-26 12:26 | disposition home or self-care (01) ==
LOC: C.ER 08:21
DX: D57.1 Sickle-cell disease without crisis (principal)
CPT/HCPCS: 80053; 81001; 84703; 85025; 85044; 85730; 93005; 96374; 96375; 99285; J1200; J2405

== ENCOUNTER 2017-03-27 11:40 | Emergency (ER) | payer MEDICAID ==
[2017-03-27 11:41] VITALS: BMI 25.4
[2017-03-27 12:06] VITALS: TEMP 98.6
--- NOTE | 2017-03-27 14:22 | RAD ---
HISTORY: sickle cell crisis COMPARISON: Chest radiographs 03/07/2017 TECHNIQUE: Chest PA and lateral FINDINGS: LUNGS: No acute infiltrate or pleural effusion identified. Trace reticular changes are seen at the left base laterally. PLEURA: No significant pleural effusion identified. No pneumothorax apparent. CARDIOVASCULAR: Normal. OSSEOUS STRUCTURES: No significant abnormalities. VISUALIZED UPPER ABDOMEN: Normal. OTHER FINDINGS: None. IMPRESSION: Trace reticular change seen the left base laterally. No acute infiltrate pleural effusion or pneumothorax. Cardiomediastinal silhouette stable.
--- NOTE | 2017-03-27 14:27 | C.PDOC ---
History Of Present Illness 31 y/o female, with PMHx of sickle cell disease, presents to ED for evaluation of generalized body pain. Pt is well known to ED staff for multiple prior visits for similar complaints. Pt states that she was recently admitted to ICU at [facility] for bronchitis. Otherwise, denies chest pain, shortness of breath, or fever at this time. Time Seen by Provider: 03/27/17 12:13 Chief Complaint (Nursing): Pain, Chronic History Per: Patient History/Exam Limitations: no limitations Onset/Duration Of Symptoms: Days Current Symptoms Are (Timing): Still Present Reports Recently: Seen In ED Recent travel outside of the [place]: No Additional History Per: Patient Past Medical History Reviewed: Historical Data, Nursing Documentation, Vital Signs Vital Signs: Last Vital Signs Temp 98.6 F 03/27/17 12:02 Pulse 88 03/27/17 12:02 Resp 17 03/27/17 12:02 BP 133/85 03/27/17 12:02 Pulse Ox 96 03/27/17 14:32 - Medical History PMH: Anemia, Bronchitis, Gall Bladder Disease, Pneumonia, Sickle Cell Disease Surgical History: Cholecystectomy - [facility] Procedures INFLUENZA VACCINATION (03/16/12) INJECT/INFUSE ELECTROLYT (09/07/13) INJECT/INFUSE NEC (01/25/14) INSERTION OF INFUSION DEV INTO SUP VENA CAVA, PERC APPROACH (01/25/17) NEBULIZER THERAPY (12/02/13) PACKED CELL TRANSFUSION (02/12/15) REMOVAL OF VAD FROM TRUNK SUBCU/FASCIA, OPEN APPROACH (04/15/16) TRANSFUSE NONAUT RED BLOOD CELLS IN PERIPH VEIN, PERC (01/25/17) VACCINATION NEC (08/22/13) Family History: States: Unknown Family Hx - Social History Hx Tobacco Use: No Hx Alcohol Use: No Hx Substance Use: Yes ([facility]) - Immunization History Hx Tetanus Toxoid Vaccination: Yes Hx Influenza Vaccination: Yes (2015) Hx Pneumococcal Vaccination: Yes (2014) Review Of Systems Except As Marked, All Systems Reviewed And Found Negative. Constitutional: Positive for: Other (generalized body pain). Negative for: Fever, Chills Cardiovascular: Negative for: Chest Pain, Palpitations Respiratory: Negative for: Cough, Shortness of Breath Gastrointestinal: Negative for: Nausea, Vomiting, Abdominal Pain Neurological: Negative for: Headache, Dizziness Physical Exam - Physical Exam Appears: Non-toxic, No Acute Distress Skin: Normal Color, Warm, Dry Head: Atraumatic, Normacephalic Eye(s): bilateral: Normal Inspection Oral Mucosa: Moist Neck: Normal ROM, Supple Chest: Symmetrical Cardiovascular: Rhythm Regular, No Murmur Respiratory: Normal Breath Sounds, No Rales, No Rhonchi, No Wheezing Gastrointestinal/Abdominal: Soft, No Tenderness Back: No CVA Tenderness Extremity: Normal ROM, No Deformity Neurological/Psych: Oriented x3, Normal Speech, Normal Cognition ED Course And Treatment O2 Sat by Pulse Oximetry: 96 (RA) Pulse Ox Interpretation: Normal - Other Rad CXR X-Ray: Viewed By Me, Read By Radiologist Interpretation: Accession No. : [id number]. Patient Name / ID : JACK SEGURA / [id number]. Exam Date : 03/27/2017 12:58:07 ( Approved ). Study Comment : Sex / Age : F / 31Y. Creator : Jesus Ramirez MD. Dictator : Jesus Ramirez MD. Branch Rental Manager : Final Inspector And Tester : Jesus Ramirez MD. Approver2 : Report Date : 03/27/2017 14:21:20. My Comment : . HISTORY: sickle cell crisis. COMPARISON: Chest radiographs 03/07/2017. TECHNIQUE: Chest PA and lateral. FINDINGS: LUNGS: No acute infiltrate or pleural effusion identified. Trace reticular changes are seen at the left base laterally. PLEURA: No significant pleural effusion identified. No pneumothorax apparent. CARDIOVASCULAR: Normal. OSSEOUS STRUCTURES: No significant abnormalities. VISUALIZED UPPER ABDOMEN: Normal. OTHER FINDINGS: None. IMPRESSION: Trace reticular change seen the left base laterally. No acute infiltrate pleural effusion or pneumothorax. Cardiomediastinal silhouette stable. Progress Note: CXR ordered and reviewed. Patient was given Benadryl, Dilaudid, and Reglan. On re-eval, patient is resting comfortably, and is in no acute distress, tolerating PO. Pt reports feeling better. Patient was instructed to follow up with physician/clinic in 1-2 days for further evaluation. Disposition - Disposition Referrals: Enzo Louis MD [Staff Provider] - Disposition: HOME/ ROUTINE Disposition Time: 15:06 Condition: STABLE Additional Instructions: Follow up with PMD within 1-2 days. Return to ED if feel worse. Instructions: Sickle Cell Crisis (ED) Forms: [employer] (Comoran) - Clinical Impression Clinical Impression: Sickle cell crisis - PA / CERTIFIED NOVELL ENGINEER / Resident Statement MD/DO has reviewed & agrees with the documentation as recorded. - Scribe Statement The provider has reviewed the documentation as recorded by the Scribe Annmarie Louis All medical record entries made by the Scribvalarie were at my direction and personally dictated by me. I have reviewed the chart and agree that the record accurately reflects my personal performance of the history, physical exam, medical decision making, and the department course for this patient. I have also personally directed, reviewed, and agree with the discharge instructions and disposition.
[2017-03-27 15:14] VITALS: BP 124/70; PULSE 78; RESP 18
[2017-03-27 17:27] VITALS: O2SAT 96
== END 2017-03-27 15:14 | disposition home or self-care (01) ==
LOC: C.ER 11:40
DX: D57.00 Hb-SS disease with crisis, unspecified (principal)

== ENCOUNTER 2017-03-29 09:40 | Emergency (ER) | payer MEDICAID ==
[2017-03-29 09:40] VITALS: BMI 25.4
[2017-03-29] MEDS ORDERED: DiphenhydrAMINE 50 mg/ml Inj IVP STA ×2 (10:28→12:58)
[2017-03-29] MEDS ORDERED: Sodium Chloride 0.9% 1,000 ML IV STA ×2 (10:28→12:01)
[2017-03-29] MEDS ORDERED: Sodium Chloride 0.9% 1,000 ML ONE ×2 (10:46→12:06)
[2017-03-29] MEDS ORDERED: DiphenhydrAMINE 50 mg/ml Inj ONE ×2 (10:46→13:06)
[2017-03-29 11:11] LABS: BASO # 0.1 K/uL (0.0-0.2); BASO % 0.9 % (0.0-2.0); EOS # 0.2 K/uL (0.0-0.7); EOS % 2.1 % (0.0-4.0); HEMATOCRIT 30.9 % (34.0-47.0); LYMPH # 2.9 K/uL (1.0-4.3); LYMPH % 27.3 % (20.0-40.0); MEAN CELL VOLUME 94.1 fL (81.0-99.0); MEAN CORPUSCULAR HEMOGLOBIN 31.7 pg (27.0-31.0); MEAN CORPUSCULAR HGB CONC 33.7 g/dL (33.0-37.0); MEAN PLATELET VOLUME 7.9 fL (7.2-11.7); MONO # 0.7 K/uL (0.0-0.8); MONO % 6.7 % (0.0-10.0); NRBC % 0.3 % (0.0-2.0); RED CELL DISTRIBUTION WIDTH 21.8 % (11.5-14.5); WHITE BLOOD COUNT 10.8 K/uL (4.8-10.8)
[2017-03-29 11:15] LABS: CHLORIDE 101 mmol/L (98-107); SODIUM 137 mmol/L (132-148)
[2017-03-29 11:16] LABS: POTASSIUM 4.4 mmol/L (3.6-5.2)
[2017-03-29 11:17] LABS: RBC URINE 1 /hpf (0-3); URINE BACTERIA RARE (<OCC); URINE BILIRUBIN NEGATIVE (NEGATIVE); URINE BLOOD NEGATIVE (NEGATIVE); URINE COLOR Yellow (YELLOW); URINE GLUCOSE (UA) NORMAL (Normal); URINE KETONE NEGATIVE (NEGATIVE); URINE LEUKOCYTE ESTERASE NEG Leu/uL (Negative); URINE PROTEIN NEGATIVE (NEGATIVE); URINE UROBILINOGEN NORMAL mg/dL (0.2-1.0); WBC URINE < 1 /hpf (0-5)
[2017-03-29 11:18] LABS: ALB/GLOB RATIO 1.1 (1.0-2.1); ALKALINE PHOSPHATASE 107 U/L (38-126); AST/SGOT 63 U/L (14-36); BILIRUBIN,TOTAL 1.4 mg/dL (0.2-1.3); BLOOD UREA NITROGEN 10 mg/dL (7-17); CARBON DIOXIDE 27 mmol/L (22-30); GFR AFRICAN-AMERICAN > 60; GLUCOSE,RANDOM 92 mg/dL (65-105); TOTAL PROTEIN 8.2 g/dL (6.3-8.3)
[2017-03-29 11:19] LABS: ALT/SGPT 93 U/L (9-52); CALCIUM 9.6 mg/dl (8.6-10.4)
--- NOTE | 2017-03-29 11:30 | C.PDOC ---
History Of Present Illness 31 year old female well known to this ED with history of sickle cell disease presents with typical complaint of sickle cell crisis, also complaining of chest pain. She states that she called her PMD Dr. Louis who requested her to come here. Her last visits to the ED were 2 and 3 days ago. Time Seen by Provider: 03/29/17 09:56 Chief Complaint (Nursing): Pain, Chronic History Per: Patient History/Exam Limitations: no limitations Reports Recently: Seen In ED Past Medical History Reviewed: Historical Data, Nursing Documentation, Vital Signs Vital Signs: Last Vital Signs Temp 98.1 F 03/29/17 13:11 Pulse 72 03/29/17 13:11 Resp 18 03/29/17 13:11 BP 132/83 03/29/17 13:11 Pulse Ox 98 03/29/17 15:51 - Medical History PMH: Anemia, Bronchitis, Gall Bladder Disease, Pneumonia, Sickle Cell Disease Surgical History: Cholecystectomy - [facility] Procedures INFLUENZA VACCINATION (03/16/12) INJECT/INFUSE ELECTROLYT (09/07/13) INJECT/INFUSE NEC (01/25/14) INSERTION OF INFUSION DEV INTO SUP VENA CAVA, PERC APPROACH (01/25/17) NEBULIZER THERAPY (12/02/13) PACKED CELL TRANSFUSION (02/12/15) REMOVAL OF VAD FROM TRUNK SUBCU/FASCIA, OPEN APPROACH (04/15/16) TRANSFUSE NONAUT RED BLOOD CELLS IN PERIPH VEIN, PERC (01/25/17) VACCINATION NEC (08/22/13) Family History: States: Unknown Family Hx - Social History Hx Tobacco Use: No Hx Alcohol Use: No Hx Substance Use: Yes ([facility]) - Immunization History Hx Tetanus Toxoid Vaccination: Yes Hx Influenza Vaccination: Yes (2015) Hx Pneumococcal Vaccination: Yes (2014) Review Of Systems Constitutional: Positive for: Other (Generalized pain) Cardiovascular: Positive for: Chest Pain Physical Exam - Physical Exam Appears: Non-toxic, No Acute Distress Skin: Warm, Dry, Pale Head: Atraumatic, Normacephalic Eye(s): bilateral: Normal Inspection, PERRL, EOMI Neck: Normal Cardiovascular: Rhythm Regular (Regular Rate) Respiratory: Normal Breath Sounds Extremity: No Pedal Edema, No Deformity Neurological/Psych: Oriented x3, Normal Speech ED Course And Treatment - Laboratory Results Result Diagrams: 03/29/17 11:00 03/29/17 11:00 O2 Sat by Pulse Oximetry: 98 Medical Decision Making Medical Decision Making: Patient sts she just found out that she has sudden in her family and she wants to be d/c home. Patient had 3 doses of Dilaudid, Benadryl and IV fluid. Patient is stable to be d/c home. Disposition - Disposition Referrals: Enzo Louis MD [Staff Provider] - Disposition: HOME/ ROUTINE Disposition Time: 13:07 Condition: IMPROVED Additional Instructions: Follow up with PMD within 1-2 days. Return to ED if feel worse. Forms: [employer] (Bermudian) - Clinical Impression Clinical Impression: Sickle cell crisis - Scribe Statement The provider has reviewed the documentation as recorded by the Scribe Jose Moon
[2017-03-29 12:04] LABS: RETIC% 6.6 % (0.5-1.5)
[2017-03-29 13:13] VITALS: BP 132/83; PULSE 72; RESP 18; TEMP 98.1
--- NOTE | 2017-03-29 14:11 | RAD ---
HISTORY: scc, cp COMPARISON: Comparison is made to 03/27/2017 TECHNIQUE: Chest PA and lateral FINDINGS: LUNGS: No active pulmonary disease. PLEURA: No significant pleural effusion identified. No pneumothorax apparent. CARDIOVASCULAR: Normal. OSSEOUS STRUCTURES: No significant abnormalities. VISUALIZED UPPER ABDOMEN: Normal. OTHER FINDINGS: None. IMPRESSION: No active disease.
[2017-03-29 15:52] VITALS: O2SAT 98
== END 2017-03-29 13:16 | disposition home or self-care (01) ==
LOC: C.ER 09:40
DX: D57.00 Hb-SS disease with crisis, unspecified (principal)
CPT/HCPCS: 71020; 80053; 81001; 84703; 85025; 85044; 86850; 86900; 96361; 96374; 96375; 96376; 99285; J1170; J1200; J7040

== ENCOUNTER 2017-04-04 08:13 | Emergency (ER) | payer MEDICAID ==
[2017-04-04 08:13] VITALS: BMI 25.4
[2017-04-04 10:55] VITALS: O2SAT 99
--- NOTE | 2017-04-04 11:17 | C.PDOC ---
History Of Present Illness 31 year old female with PMHx of sickle cell disease, presents to ED for evaluation of chronic generalized body pain. Patient is well known to ED staff for multiple visits in the past for similar complaints. Patient denies chest pain, shortness of breath, nausea, vomiting, abdominal pain, cough, fever, or chills. Time Seen by Provider: 04/04/17 10:08 Chief Complaint (Nursing): Pain, Chronic History Per: Patient History/Exam Limitations: no limitations Onset/Duration Of Symptoms: Days Current Symptoms Are (Timing): Still Present Severity: Mild Reports Recently: Seen In ED Additional History Per: Patient Past Medical History Reviewed: Historical Data, Nursing Documentation, Vital Signs Vital Signs: Last Vital Signs Temp 98.0 F 04/04/17 12:32 Pulse 90 04/04/17 12:32 Resp 18 04/04/17 12:32 BP 114/77 04/04/17 12:32 Pulse Ox 99 04/04/17 12:32 - Medical History PMH: Anemia, Bronchitis, Gall Bladder Disease, Pneumonia, Sickle Cell Disease Surgical History: Cholecystectomy - [facility] Procedures INFLUENZA VACCINATION (03/16/12) INJECT/INFUSE ELECTROLYT (09/07/13) INJECT/INFUSE NEC (01/25/14) INSERTION OF INFUSION DEV INTO SUP VENA CAVA, PERC APPROACH (01/25/17) NEBULIZER THERAPY (12/02/13) PACKED CELL TRANSFUSION (02/12/15) REMOVAL OF VAD FROM TRUNK SUBCU/FASCIA, OPEN APPROACH (04/15/16) TRANSFUSE NONAUT RED BLOOD CELLS IN PERIPH VEIN, PERC (01/25/17) VACCINATION NEC (08/22/13) Family History: States: No Known Family Hx - Social History Hx Tobacco Use: No Hx Alcohol Use: No Hx Substance Use: Yes ([employer]) - Immunization History Hx Tetanus Toxoid Vaccination: Yes Hx Influenza Vaccination: Yes (2015) Hx Pneumococcal Vaccination: Yes (2014) Review Of Systems Except As Marked, All Systems Reviewed And Found Negative. Constitutional: Positive for: Other (chronic body pain). Negative for: Fever, Chills Cardiovascular: Negative for: Chest Pain, Palpitations Respiratory: Negative for: Cough, Shortness of Breath Gastrointestinal: Negative for: Nausea, Vomiting, Abdominal Pain Neurological: Negative for: Headache, Dizziness Physical Exam - Physical Exam Appears: Well, Non-toxic, No Acute Distress Skin: Normal Color, Warm, Dry Eye(s): bilateral: Normal Inspection Oral Mucosa: Moist Cardiovascular: Rhythm Regular Respiratory: Normal Breath Sounds, No Rales, No Rhonchi, No Wheezing Gastrointestinal/Abdominal: Normal Exam, Bowel Sounds, Soft, No Tenderness Extremity: Normal ROM Neurological/Psych: Oriented x3 ED Course And Treatment O2 Sat by Pulse Oximetry: 99 (RA) Pulse Ox Interpretation: Normal Progress Note: Patient given PO Benadryl and PO Dilaudid x 2 for pain. Reevaluation Time: 12:30 Reassessment Condition: Improved (On reassessment, patient is resting comfortably and states her pain has improved. She is requesting to be discharged home. She was instructed to follow up with PMD in 1-2 days, and understands she should return to ED if symptoms worsen.) Disposition Counseled Patient/Family Regarding: Diagnosis, Need For Followup - Disposition Referrals: Enzo Louis MD [Staff Provider] - Disposition: HOME/ ROUTINE Disposition Time: 12:30 Condition: STABLE Instructions: Sickle Cell Anemia (DC) Forms: [employer] (Mexican) Print Language: NEPALESE - POA Present On Arrival: None - Clinical Impression Clinical Impression: Sickle cell disease, Chronic pain - Scribe Statement The provider has reviewed the documentation as recorded by the Scribe Annmarie Louis All medical record entries made by the Scribe were at my direction and personally dictated by me. I have reviewed the chart and agree that the record accurately reflects my personal performance of the history, physical exam, medical decision making, and the department course for this patient. I have also personally directed, reviewed, and agree with the discharge instructions and disposition.
[2017-04-04 12:32] VITALS: BP 114/77; PULSE 90; RESP 18; TEMP 98
== END 2017-04-04 12:32 | disposition home or self-care (01) ==
LOC: C.ER 08:13
DX: D57.1 Sickle-cell disease without crisis (principal); G89.29 Other chronic pain

== ENCOUNTER 2017-04-24 09:32 | Emergency (ER) | payer MEDICAID ==
[2017-04-24 09:32] VITALS: BMI 24.5
[2017-04-24 09:40] VITALS: RESP 18; TEMP 98; O2SAT 98
[2017-04-24 10:06] LABS: RBC URINE < 1 /hpf (0-3); URINE BILIRUBIN NEGATIVE (NEGATIVE); URINE BLOOD NEGATIVE (NEGATIVE); URINE COLOR Yellow (YELLOW); URINE GLUCOSE (UA) NORMAL (Normal); URINE KETONE NEGATIVE (NEGATIVE); URINE LEUKOCYTE ESTERASE NEG Leu/uL (Negative); URINE PROTEIN NEGATIVE (NEGATIVE); URINE UROBILINOGEN NORMAL mg/dL (0.2-1.0); WBC URINE < 1 /hpf (0-5)
--- NOTE | 2017-04-24 10:14 | C.PDOC ---
History Of Present Illness 31 y/o female with history of sickle cell disease presents to ED with c/o generalized body pain. Patient is well known to ED staff with multiple prior similar visits. Denies any fevers, chills, nausea, vomiting, diarrhea, chest pain, SOB, or other associated symptoms. Patient was admitted to the hospital for chronic pain last week. Time Seen by Provider: 04/24/17 09:45 Chief Complaint (Nursing): Medical Clearance History Per: Patient History/Exam Limitations: no limitations Onset/Duration Of Symptoms: Persistent Current Symptoms Are (Timing): Still Present Reports Recently: Seen In ED Recent travel outside of the [place]: No Past Medical History Reviewed: Historical Data, Nursing Documentation, Vital Signs Vital Signs: Last Vital Signs Temp 98.0 F 04/24/17 09:37 Pulse 73 04/24/17 11:28 Resp 18 04/24/17 11:28 BP 102/66 04/24/17 11:28 Pulse Ox 98 04/24/17 11:48 - Medical History PMH: Anemia, Bronchitis, Gall Bladder Disease, Pneumonia, Sickle Cell Disease Surgical History: Cholecystectomy - [facility] Procedures INFLUENZA VACCINATION (03/16/12) INJECT/INFUSE ELECTROLYT (09/07/13) INJECT/INFUSE NEC (01/25/14) INSERTION OF INFUSION DEV INTO SUP VENA CAVA, PERC APPROACH (01/25/17) NEBULIZER THERAPY (12/02/13) PACKED CELL TRANSFUSION (02/12/15) REMOVAL OF VAD FROM TRUNK SUBCU/FASCIA, OPEN APPROACH (04/15/16) TRANSFUSE NONAUT RED BLOOD CELLS IN PERIPH VEIN, PERC (04/17/17) VACCINATION NEC (08/22/13) Family History: States: Unknown Family Hx - Social History Hx Tobacco Use: No Hx Alcohol Use: No Hx Substance Use: Yes (marijuana) - Immunization History Hx Tetanus Toxoid Vaccination: Yes Hx Influenza Vaccination: Yes (2015) Hx Pneumococcal Vaccination: Yes (2014) Review Of Systems Except As Marked, All Systems Reviewed And Found Negative. Constitutional: Negative for: Fever, Chills Cardiovascular: Negative for: Chest Pain Respiratory: Negative for: Cough, Shortness of Breath, Wheezing Gastrointestinal: Negative for: Nausea, Vomiting Skin: Negative for: Rash Neurological: Negative for: Headache, Dizziness Physical Exam - Physical Exam Appears: Non-toxic, No Acute Distress Skin: Warm, Dry Head: Atraumatic, Normacephalic Oral Mucosa: Moist Chest: Symmetrical Cardiovascular: Rhythm Regular Respiratory: Normal Breath Sounds, No Rales, No Rhonchi, No Wheezing Gastrointestinal/Abdominal: Soft, No Tenderness Extremity: Normal ROM, Capillary Refill (< 2 sec.) Neurological/Psych: Oriented x3 ED Course And Treatment O2 Sat by Pulse Oximetry: 98 (RA) Pulse Ox Interpretation: Normal Medical Decision Making Medical Decision Making: Plan: Benadryl, Dilaudid, Motrin ordered. UA ordered. Progress:Patient re-evaluated and asking for another dose. Additional 8mg Dilaudid. On re-evaluation, patient is resting comfortably in bed on talking on her cellphone. Patient stable for discharge. Disposition Counseled Patient/Family Regarding: Diagnosis, Need For Followup - Disposition Disposition: HOME/ ROUTINE Disposition Time: 11:47 Condition: STABLE Additional Instructions: Follow up with your primary medical doctor DR Ariel Louis for further evaluation. Return to the emergency department at any time if symptoms persist or worsen. Instructions: Chronic Pain (DC) Forms: [employer] (Croatian) - POA Present On Arrival: None - Clinical Impression Clinical Impression: Chronic pain - PA / [employer] / Resident Statement MD/DO has reviewed & agrees with the documentation as recorded. - Scribe Statement The provider has reviewed the documentation as recorded by the Scribe SM All medical record entries made by the Scribe were at my direction and personally dictated by me. I have reviewed the chart and agree that the record accurately reflects my personal performance of the history, physical exam, medical decision making, and the department course for this patient. I have also personally directed, reviewed, and agree with the discharge instructions and disposition.
[2017-04-24 11:29] VITALS: BP 102/66; PULSE 73
== END 2017-04-24 12:08 | disposition home or self-care (01) ==
LOC: C.ER 09:32
DX: G89.29 Other chronic pain (principal)

== ENCOUNTER 2017-04-26 09:00 | Emergency (ER) | payer MEDICAID ==
[2017-04-26 09:01] VITALS: BMI 24.5
[2017-04-26 09:05] VITALS: BP 119/79; PULSE 81; RESP 18; TEMP 97.4; O2SAT 99
--- NOTE | 2017-04-26 09:43 | C.PDOC ---
History Of Present Illness 31 year-old female, PMHx includes sickle cell disease, presents to the ED with complaints of generalized body pain. Patient is well to known to the ER staff for multiple visits for similar complaints. Pt denies any other complaints at this time. Time Seen by Provider: 04/26/17 09:34 Chief Complaint (Nursing): Pain, Chronic History Per: Patient History/Exam Limitations: no limitations Onset/Duration Of Symptoms: Days Current Symptoms Are (Timing): Still Present Past Medical History Reviewed: Historical Data, Nursing Documentation, Vital Signs Vital Signs: Last Vital Signs Temp 97.4 F L 04/26/17 09:04 Pulse 81 04/26/17 09:04 Resp 18 04/26/17 09:04 BP 119/79 04/26/17 09:04 Pulse Ox 99 04/26/17 09:50 - Medical History PMH: Anemia, Bronchitis, Gall Bladder Disease, Pneumonia, Sickle Cell Disease Surgical History: Cholecystectomy - [facility] Procedures INFLUENZA VACCINATION (03/16/12) INJECT/INFUSE ELECTROLYT (09/07/13) INJECT/INFUSE NEC (01/25/14) INSERTION OF INFUSION DEV INTO SUP VENA CAVA, PERC APPROACH (01/25/17) NEBULIZER THERAPY (12/02/13) PACKED CELL TRANSFUSION (02/12/15) REMOVAL OF VAD FROM TRUNK SUBCU/FASCIA, OPEN APPROACH (04/15/16) TRANSFUSE NONAUT RED BLOOD CELLS IN PERIPH VEIN, PERC (04/17/17) VACCINATION NEC (08/22/13) Family History: States: No Known Family Hx - Social History Hx Tobacco Use: No Hx Alcohol Use: No Hx Substance Use: Yes (marijuana) - Immunization History Hx Tetanus Toxoid Vaccination: Yes Hx Influenza Vaccination: Yes (2015) Hx Pneumococcal Vaccination: Yes (2014) Review Of Systems Constitutional: Positive for: Malaise. Negative for: Fever Respiratory: Negative for: Shortness of Breath Gastrointestinal: Negative for: Vomiting Neurological: Negative for: Dizziness Physical Exam - Physical Exam Appears: Non-toxic, No Acute Distress Skin: Warm, Dry, No Rash Head: Atraumatic Eye(s): bilateral: Normal Inspection Nose: Normal Lips: Normal Appearing Neck: Normal ROM Respiratory: No Accessory Muscle Use Extremity: Normal ROM Neurological/Psych: Oriented x3, Normal Speech ED Course And Treatment O2 Sat by Pulse Oximetry: 99 Medical Decision Making Medical Decision Making: Patient observed to be on cell phone, smiling and texting; Does not appear to be in any apparent distress. Will administer sickle cell protocol and discharge patient for outpatient f/u with PMD. Disposition - Disposition Disposition: HOME/ ROUTINE Disposition Time: 09:38 Condition: STABLE Additional Instructions: return to er with worsening symptoms or concern.s Instructions: Sickle Cell Crisis (ED) Forms: [employer] (Cook Islander) - Clinical Impression Clinical Impression: Sickle cell crisis - Scribe Statement The provider has reviewed the documentation as recorded by the Scribe (Anika Shearer) All medical record entries made by the Scribe were at my direction and personally dictated by me. I have reviewed the chart and agree that the record accurately reflects my personal performance of the history, physical exam, medical decision making, and the department course for this patient. I have also personally directed, reviewed, and agree with the discharge instructions and disposition.
== END 2017-04-26 09:54 | disposition home or self-care (01) ==
LOC: C.ER 09:00
DX: D57.00 Hb-SS disease with crisis, unspecified (principal)

== ENCOUNTER 2017-04-28 10:38 | Emergency (ER) | payer MEDICAID ==
[2017-04-28 10:38] VITALS: BMI 24.5
[2017-04-28 10:48] VITALS: O2SAT 98
[2017-04-28 11:58] LABS: BASO # 0.2 K/uL (0.0-0.2); BASO % 1.4 % (0.0-2.0); EOS # 0.2 K/uL (0.0-0.7); EOS % 1.1 % (0.0-4.0); HEMATOCRIT 26.5 % (34.0-47.0); LYMPH # 4.8 K/uL (1.0-4.3); LYMPH % 29.8 % (20.0-40.0); MEAN CELL VOLUME 90.7 fL (81.0-99.0); MEAN CORPUSCULAR HEMOGLOBIN 30.7 pg (27.0-31.0); MEAN CORPUSCULAR HGB CONC 33.8 g/dL (33.0-37.0); MEAN PLATELET VOLUME 8.2 fL (7.2-11.7); MONO # 1.5 K/uL (0.0-0.8); MONO % 9.1 % (0.0-10.0); NRBC % 0.1 % (0.0-2.0); RED CELL DISTRIBUTION WIDTH 19.3 % (11.5-14.5); WHITE BLOOD COUNT 16.2 K/uL (4.8-10.8)
[2017-04-28 12:03] LABS: RETIC% 9.7 % (0.5-1.5)
[2017-04-28 12:07] LABS: RBC URINE < 1 /hpf (0-3); URINE BILIRUBIN NEGATIVE (NEGATIVE); URINE BLOOD NEGATIVE (NEGATIVE); URINE COLOR Yellow (YELLOW); URINE GLUCOSE (UA) NORMAL (Normal); URINE KETONE NEGATIVE (NEGATIVE); URINE LEUKOCYTE ESTERASE NEG Leu/uL (Negative); URINE PROTEIN NEGATIVE (NEGATIVE); URINE UROBILINOGEN NORMAL mg/dL (0.2-1.0); WBC URINE < 1 /hpf (0-5)
[2017-04-28 12:12] LABS: ALB/GLOB RATIO 1.2 (1.0-2.1); ALKALINE PHOSPHATASE 95 U/L (38-126); ALT/SGPT 105 U/L (9-52); AST/SGOT 53 U/L (14-36); BILIRUBIN,TOTAL 1.4 mg/dL (0.2-1.3); BLOOD UREA NITROGEN 12 mg/dL (7-17); CALCIUM 8.8 mg/dl (8.6-10.4); CARBON DIOXIDE 24 mmol/L (22-30); CHLORIDE 107 mmol/L (98-107); GFR AFRICAN-AMERICAN > 60; GLUCOSE,RANDOM 79 mg/dL (65-105); POTASSIUM 3.9 mmol/L (3.6-5.2); SODIUM 138 mmol/L (132-148); TOTAL PROTEIN 7.9 g/dL (6.3-8.3)
--- NOTE | 2017-04-28 12:25 | C.PDOC ---
History Of Present Illness 31 year old female, whose past medical history includes sickle cells disease, presents to the ED for evaluation of generalized body pain which began around 4 days ago. Patient is familiar to this ED and has had multiple presentations concerning similar complaints. Patient states she has been unable to follow up with her PMD and denies fevers, chills, chest pain, shortness of breath, nausea , vomiting, diarrhea, or other associated symptoms at this time. Time Seen by Provider: 04/28/17 11:24 Chief Complaint (Nursing): Pain, Chronic History Per: Patient History/Exam Limitations: no limitations Onset/Duration Of Symptoms: Days (4) Current Symptoms Are (Timing): Still Present Reports Recently: Seen In ED, Treated By A Physician Additional History Per: Patient Past Medical History Reviewed: Historical Data, Nursing Documentation, Vital Signs Vital Signs: Last Vital Signs Temp 97.7 F 04/28/17 10:47 Pulse 82 04/28/17 10:47 Resp 18 04/28/17 10:47 BP 107/70 04/28/17 10:47 Pulse Ox 98 04/28/17 12:29 - Medical History PMH: Anemia, Bronchitis, Gall Bladder Disease, Pneumonia, Sickle Cell Disease Surgical History: Cholecystectomy - [facility] Procedures INFLUENZA VACCINATION (03/16/12) INJECT/INFUSE ELECTROLYT (09/07/13) INJECT/INFUSE NEC (01/25/14) INSERTION OF INFUSION DEV INTO SUP VENA CAVA, PERC APPROACH (01/25/17) NEBULIZER THERAPY (12/02/13) PACKED CELL TRANSFUSION (02/12/15) REMOVAL OF VAD FROM TRUNK SUBCU/FASCIA, OPEN APPROACH (04/15/16) TRANSFUSE NONAUT RED BLOOD CELLS IN PERIPH VEIN, PERC (04/17/17) VACCINATION NEC (08/22/13) Family History: States: Unknown Family Hx - Social History Hx Tobacco Use: No Hx Alcohol Use: No Hx Substance Use: Yes (marijuana) - Immunization History Hx Tetanus Toxoid Vaccination: Yes Hx Influenza Vaccination: Yes (2015) Hx Pneumococcal Vaccination: Yes (2014) Review Of Systems Constitutional: Negative for: Fever, Chills Cardiovascular: Negative for: Chest Pain Respiratory: Negative for: Shortness of Breath Gastrointestinal: Negative for: Nausea, Vomiting, Diarrhea Musculoskeletal: Positive for: Other (generalized body pain ) Physical Exam - Physical Exam Appears: Non-toxic, No Acute Distress Skin: Normal Color, Warm, Dry Head: Atraumatic, Normacephalic Eye(s): bilateral: Normal Inspection Oral Mucosa: Moist Neck: Supple Chest: Symmetrical, No Deformity, No Tenderness Cardiovascular: Rhythm Regular, No Murmur Respiratory: Normal Breath Sounds, No Rales, No Rhonchi, No Wheezing Gastrointestinal/Abdominal: Soft, No Tenderness, No Guarding, No Rebound Extremity: Normal ROM, Capillary Refill (less than 2 seconds ) Neurological/Psych: Oriented x3, Normal Speech, Normal Cognition Gait: Steady ED Course And Treatment - Laboratory Results Result Diagrams: 04/28/17 11:52 04/28/17 11:52 O2 Sat by Pulse Oximetry: 98 (on RA) Pulse Ox Interpretation: Normal Medical Decision Making Medical Decision Making: Impression: 31 year old female with generalized body pain Plan: * Bloodwork * Urinalysis * Benadryl PO * Dilaudid PO * reassess and disposition Progress: Bloodwork and urinalysis were ordered and reviewed. Benadryl PO and Dilaudid PO administered. Disposition Discussed With Dr.: Enzo Louis Comment: Ariel Louis states patient stable for discharge Doctor Will See Patient In The: ED - Disposition Disposition: HOME/ ROUTINE Disposition Time: 13:00 Condition: STABLE Additional Instructions: Follow up with your primary medical doctor for further evaluation. Return to the emergency department at any time if symptoms persist or worsen. Instructions: Chronic Pain (DC) Forms: [facility] (Greenlandic) - POA Present On Arrival: None - Clinical Impression Clinical Impression: Chronic pain, Sickle cell disease - PA / [employer] / Resident Statement MD/DO has reviewed & agrees with the documentation as recorded. - Scribe Statement The provider has reviewed the documentation as recorded by the Scribe (Katelin Louis) All medical record entries made by the Scribe were at my direction and personally dictated by me. I have reviewed the chart and agree that the record accurately reflects my personal performance of the history, physical exam, medical decision making, and the department course for this patient. I have also personally directed, reviewed, and agree with the discharge instructions and disposition.
[2017-04-28 13:02] VITALS: BP 117/81; PULSE 62; RESP 15; TEMP 97.6
== END 2017-04-28 13:01 | disposition home or self-care (01) ==
LOC: C.ER 10:38
DX: G89.29 Other chronic pain (principal); D57.1 Sickle-cell disease without crisis

== ENCOUNTER 2017-05-01 11:44 | Emergency (ER) | payer MEDICAID ==
[2017-05-01 11:44] VITALS: BMI 24.5
[2017-05-01 12:06] VITALS: TEMP 97.8
--- NOTE | 2017-05-01 12:48 | C.PDOC ---
History Of Present Illness 31 y/o female, with PMHx of sickle cell disease, presents to ED for evaluation of chronic generalized body pain. Patient is well to known to the ER staff for multiple visits for similar complaints. (+) mild dysuria. Pt denies any other complaints at this time. Time Seen by Provider: 05/01/17 12:44 Chief Complaint (Nursing): Pain, Chronic History Per: Patient History/Exam Limitations: no limitations Onset/Duration Of Symptoms: Days Current Symptoms Are (Timing): Still Present Recent travel outside of the [place]: No Additional History Per: Patient Past Medical History Reviewed: Historical Data, Nursing Documentation, Vital Signs Vital Signs: Last Vital Signs Temp 97.8 F 05/01/17 12:03 Pulse 75 05/01/17 14:10 Resp 16 05/01/17 14:10 BP 110/68 05/01/17 14:10 Pulse Ox 98 05/01/17 14:10 - Medical History PMH: Anemia, Bronchitis, Gall Bladder Disease, Pneumonia, Sickle Cell Disease Surgical History: Cholecystectomy - [facility] Procedures INFLUENZA VACCINATION (03/16/12) INJECT/INFUSE ELECTROLYT (09/07/13) INJECT/INFUSE NEC (01/25/14) INSERTION OF INFUSION DEV INTO SUP VENA CAVA, PERC APPROACH (01/25/17) NEBULIZER THERAPY (12/02/13) PACKED CELL TRANSFUSION (02/12/15) REMOVAL OF VAD FROM TRUNK SUBCU/FASCIA, OPEN APPROACH (04/15/16) TRANSFUSE NONAUT RED BLOOD CELLS IN PERIPH VEIN, PERC (04/17/17) VACCINATION NEC (08/22/13) Family History: States: Unknown Family Hx - Social History Hx Tobacco Use: No Hx Alcohol Use: No Hx Substance Use: Yes (marijuana) - Immunization History Hx Tetanus Toxoid Vaccination: Yes Hx Influenza Vaccination: Yes (2015) Hx Pneumococcal Vaccination: Yes (2014) Review Of Systems Except As Marked, All Systems Reviewed And Found Negative. Constitutional: Positive for: Other (chronic body pain). Negative for: Fever, Chills Cardiovascular: Negative for: Chest Pain Respiratory: Negative for: Shortness of Breath Genitourinary: Positive for: Dysuria. Negative for: Frequency, Hematuria Physical Exam - Physical Exam Appears: Non-toxic, No Acute Distress, Other (smiling) Skin: Normal Color, Warm, Dry Head: Atraumatic, Normacephalic Eye(s): bilateral: Normal Inspection Oral Mucosa: Moist Neck: Supple Cardiovascular: Rhythm Regular, No Murmur Respiratory: Normal Breath Sounds, No Rales, No Rhonchi, No Wheezing Gastrointestinal/Abdominal: Soft, No Tenderness Extremity: Normal ROM Neurological/Psych: Oriented x3, Normal Speech ED Course And Treatment O2 Sat by Pulse Oximetry: 99 (on RA) Pulse Ox Interpretation: Normal Medical Decision Making Medical Decision Making: Pt is in no apparent distress. Pt was observed to be smiling and texting on her phone. UA ordered and reviewed. pt seen sade brooks, sigrid soft, on phon einnad. ua neg. advise outpt fu and return precautions Disposition - Disposition Referrals: [facility] [Outside] [facility] [Outside] Disposition: HOME/ ROUTINE Disposition Time: 02:00 Condition: STABLE Additional Instructions: please return to er with worsening symptoms or concerns. Instructions: Sickle Cell Crisis (GEN), Acute Abdominal Pain (DC) Forms: [employer] (Congolese) - Clinical Impression Clinical Impression: Sickle cell crisis, Abdominal pain - Scribe Statement The provider has reviewed the documentation as recorded by the Scribe Annmarie Louis All medical record entries made by the Scribe were at my direction and personally dictated by me. I have reviewed the chart and agree that the record accurately reflects my personal performance of the history, physical exam, medical decision making, and the department course for this patient. I have also personally directed, reviewed, and agree with the discharge instructions and disposition.
[2017-05-01 13:40] LABS: RBC URINE 1 /hpf (0-3); URINE BILIRUBIN NEGATIVE (NEGATIVE); URINE BLOOD NEGATIVE (NEGATIVE); URINE COLOR Yellow (YELLOW); URINE GLUCOSE (UA) NORMAL (Normal); URINE KETONE NEGATIVE (NEGATIVE); URINE LEUKOCYTE ESTERASE NEG Leu/uL (Negative); URINE PROTEIN NEGATIVE (NEGATIVE); URINE UROBILINOGEN NORMAL mg/dL (0.2-1.0); WBC URINE 1 /hpf (0-5)
[2017-05-01 14:11] VITALS: BP 110/68; PULSE 75; RESP 16
[2017-05-01 14:44] VITALS: O2SAT 99
== END 2017-05-01 14:10 | disposition home or self-care (01) ==
LOC: C.ER 11:44
DX: D57.00 Hb-SS disease with crisis, unspecified (principal); R10.9 Unspecified abdominal pain

== ENCOUNTER 2017-05-08 11:17 | Emergency (ER) | payer MEDICAID ==
[2017-05-08 11:33] VITALS: TEMP 98; BMI 25.4
--- NOTE | 2017-05-08 12:30 | C.PDOC ---
History Of Present Illness 31-year-old female with PMHX of Sickle Cell Anemia presents to the emergency department with complaints of body aches. Patient has a Hx of multiple visits to the ER for similar symptoms. She denies chest pain, SOB, cough, fever, abdominal pain. Time Seen by Provider: 05/08/17 11:24 Chief Complaint (Nursing): Abdominal Pain History Per: Patient History/Exam Limitations: no limitations Onset/Duration Of Symptoms: Persistent Current Symptoms Are (Timing): Still Present Severity: Moderate Quality Of Discomfort: "Pain" Past Medical History Reviewed: Historical Data, Nursing Documentation, Vital Signs Vital Signs: Last Vital Signs Temp 98.0 F 05/08/17 12:30 Pulse 74 05/08/17 13:04 Resp 14 05/08/17 13:04 BP 110/65 05/08/17 13:04 Pulse Ox 99 05/10/17 09:15 - Medical History PMH: Anemia, Bronchitis, Gall Bladder Disease, Pneumonia, Sickle Cell Disease Surgical History: Cholecystectomy - [facility] Procedures INFLUENZA VACCINATION (03/16/12) INJECT/INFUSE ELECTROLYT (09/07/13) INJECT/INFUSE NEC (01/25/14) INSERTION OF INFUSION DEV INTO SUP VENA CAVA, PERC APPROACH (01/25/17) NEBULIZER THERAPY (12/02/13) PACKED CELL TRANSFUSION (02/12/15) REMOVAL OF VAD FROM TRUNK SUBCU/FASCIA, OPEN APPROACH (04/15/16) TRANSFUSE NONAUT RED BLOOD CELLS IN PERIPH VEIN, PERC (04/17/17) VACCINATION NEC (08/22/13) Family History: States: No Known Family Hx - Social History Hx Tobacco Use: No Hx Alcohol Use: No Hx Substance Use: Yes (marijuana) - Immunization History Hx Tetanus Toxoid Vaccination: Yes Hx Influenza Vaccination: Yes (2015) Hx Pneumococcal Vaccination: Yes (2014) Review Of Systems Except As Marked, All Systems Reviewed And Found Negative. Constitutional: Positive for: Malaise, Other (body aches). Negative for: Fever Cardiovascular: Negative for: Chest Pain, Palpitations Respiratory: Negative for: Cough, Shortness of Breath Gastrointestinal: Negative for: Nausea, Vomiting, Abdominal Pain Musculoskeletal: Negative for: Back Pain Physical Exam - Physical Exam Appears: Well, Non-toxic, No Acute Distress Skin: Warm, Dry, No Rash Eye(s): bilateral: Normal Inspection Oral Mucosa: Moist Cardiovascular: Rhythm Regular Respiratory: Normal Breath Sounds, No Rales, No Rhonchi, No Wheezing Gastrointestinal/Abdominal: Normal Exam, Bowel Sounds, Soft, No Tenderness Extremity: Normal ROM Neurological/Psych: Oriented x3 Gait: Steady ED Course And Treatment O2 Sat by Pulse Oximetry: 99 (RA) Pulse Ox Interpretation: Normal Progress Note: Urine preg POC ordered and reviewed - was negative. Sickle cell protocol PO medications given x 2. Reevaluation Time: 12:50 Reassessment Condition: Improved (On reassessment, patient's pain has improved and she states she feels better. She is well appearing, and requesting to be discharged home. Patient instructed to follow up with PMD in 1-2 days, and she understands she should return to ED if symptoms worsen.) Disposition Counseled Patient/Family Regarding: Diagnosis, Need For Followup - Disposition Referrals: [facility] at [facility] [Outside] Disposition: HOME/ ROUTINE Disposition Time: 12:50 Condition: STABLE Additional Instructions: FOLLOW UP WITH YOUR DOCTOR IN 1-2 DAY RETURN TO ER IF SYMPTOMS WORSEN Instructions: Sickle Cell Anemia (DC) Forms: [employer] (Mongolian) Print Language: INDONESIAN - Clinical Impression Clinical Impression: Sickle cell disease - Scribe Statement The provider has reviewed the documentation as recorded by the Scribe (Anika Shearer) All medical record entries made by the Scribe were at my direction and personally dictated by me. I have reviewed the chart and agree that the record accurately reflects my personal performance of the history, physical exam, medical decision making, and the department course for this patient. I have also personally directed, reviewed, and agree with the discharge instructions and disposition.
[2017-05-08 13:06] VITALS: BP 110/65; PULSE 74; RESP 14
[2017-05-10 09:15] VITALS: O2SAT 99
== END 2017-05-08 13:05 | disposition home or self-care (01) ==
LOC: C.ER 11:17
DX: D57.1 Sickle-cell disease without crisis (principal)

== ENCOUNTER 2017-05-10 08:21 | Emergency (ER) | payer MEDICAID ==
[2017-05-10 08:21] VITALS: BMI 24.5
[2017-05-10 08:45] VITALS: BP 115/73; PULSE 80; RESP 16; TEMP 98.1; O2SAT 99
--- NOTE | 2017-05-10 09:17 | C.PDOC ---
History Of Present Illness 31-year-old female, PMHx includes Sickle Cell Anemia, presents to the emergency department with complaints of body aches. Patient has a Hx of multiple visits to the ER for similar symptoms. Denies any change in symptoms or new symptoms. No fevers. Time Seen by Provider: 05/10/17 09:13 Chief Complaint (Nursing): Pain, Chronic History Per: Patient History/Exam Limitations: no limitations Onset/Duration Of Symptoms: Days Current Symptoms Are (Timing): Still Present Past Medical History Reviewed: Historical Data, Nursing Documentation, Vital Signs Vital Signs: Last Vital Signs Temp 98.1 F 05/10/17 08:42 Pulse 80 05/10/17 08:42 Resp 16 05/10/17 08:42 BP 115/73 05/10/17 08:42 Pulse Ox 99 05/10/17 09:18 - Medical History PMH: Anemia, Bronchitis, Gall Bladder Disease, Pneumonia, Sickle Cell Disease Surgical History: Cholecystectomy - [facility] Procedures INFLUENZA VACCINATION (03/16/12) INJECT/INFUSE ELECTROLYT (09/07/13) INJECT/INFUSE NEC (01/25/14) INSERTION OF INFUSION DEV INTO SUP VENA CAVA, PERC APPROACH (01/25/17) NEBULIZER THERAPY (12/02/13) PACKED CELL TRANSFUSION (02/12/15) REMOVAL OF VAD FROM TRUNK SUBCU/FASCIA, OPEN APPROACH (04/15/16) TRANSFUSE NONAUT RED BLOOD CELLS IN PERIPH VEIN, PERC (04/17/17) VACCINATION NEC (08/22/13) Family History: States: No Known Family Hx - Social History Hx Tobacco Use: No Hx Alcohol Use: No Hx Substance Use: Yes (marijuana) - Immunization History Hx Tetanus Toxoid Vaccination: Yes Hx Influenza Vaccination: Yes (2015) Hx Pneumococcal Vaccination: Yes (2014) Review Of Systems Except As Marked, All Systems Reviewed And Found Negative. Constitutional: Positive for: Malaise. Negative for: Fever Respiratory: Negative for: Shortness of Breath Gastrointestinal: Negative for: Nausea, Vomiting Neurological: Negative for: Weakness, Numbness, Headache, Dizziness Physical Exam - Physical Exam Appears: Non-toxic, No Acute Distress Skin: Warm, Dry, No Rash Head: Atraumatic Eye(s): bilateral: Normal Inspection, PERRL, EOMI Ear(s): Bilateral: Normal Nose: Normal Oral Mucosa: Moist Lips: Normal Appearing Throat: No Erythema, No Exudate Neck: Normal ROM, Supple Chest: Symmetrical, No Tenderness Cardiovascular: Rhythm Regular, No Friction Rub, No Murmur Respiratory: Normal Breath Sounds, No Accessory Muscle Use, No Rales, No Rhonchi , No Wheezing Gastrointestinal/Abdominal: Soft, No Tenderness Back: Normal Inspection, No CVA Tenderness Extremity: Normal ROM, No Tenderness, No Swelling Neurological/Psych: Oriented x3, Normal Speech, Normal Motor, Normal Sensation Gait: Steady ED Course And Treatment O2 Sat by Pulse Oximetry: 99 (on RA) Pulse Ox Interpretation: Normal Progress Note: Sickle cell protocol was ordered. Patient treated with dose of PO Benadryl and Dilaudid. On first re-exam, the patient reports that she still has pain. Dilaudid PO ordered. Patient then eloped prior to receiving Disposition - Disposition Disposition: ELOPEMENT - ER ONLY Disposition Time: 09:15 Condition: STABLE Forms: [facility] (Yemeni) - Clinical Impression Clinical Impression: Chronic pain - Scribe Statement The provider has reviewed the documentation as recorded by the Scribe (Anika Shearer) All medical record entries made by the Scribe were at my direction and personally dictated by me. I have reviewed the chart and agree that the record accurately reflects my personal performance of the history, physical exam, medical decision making, and the department course for this patient. I have also personally directed, reviewed, and agree with the discharge instructions and disposition.
== END 2017-05-10 11:33 | disposition left against medical advice (07) ==
LOC: C.ER 08:21
DX: G89.29 Other chronic pain (principal)

== ENCOUNTER 2017-05-23 09:06 | Inpatient (IN) | payer MEDICAID ==
[2017-05-23 09:06] VITALS: BMI 24.5
[2017-05-23] MEDS ORDERED: Sodium Chloride 0.9% 1,000 ML IV ONE ×2 (10:17→13:48)
--- NOTE | 2017-05-23 10:55 | C.PDOC ---
History Of Present Illness 31 y/o female, with PMHx of sickle cell disease, presents to the Emergency Department with complaints of body aches, severe back pain, and dysuria. Pt states her back pain is worse than usual. She denies chest pain, shortness of breath, cough, fever, vomiting/diarrhea, vaginal bleeding/discharge. Time Seen by Provider: 05/23/17 09:13 Chief Complaint (Nursing): Abdominal Pain History Per: Patient History/Exam Limitations: no limitations Onset/Duration Of Symptoms: Days Current Symptoms Are (Timing): Still Present Quality Of Discomfort: "Pain" Severity: Moderate Previous Symptoms: Back Pain, Chronic Pain Associated Symptoms: None. denies: Incontinence, New Weakness, New Numbness Exacerbating Factor(s): Movement Additional History Per: Patient Past Medical History Reviewed: Historical Data, Nursing Documentation, Vital Signs Vital Signs: Last Vital Signs Temp 98.2 F 05/24/17 07:54 Pulse 86 05/24/17 07:54 Resp 20 05/24/17 07:54 BP 168/70 H 05/24/17 07:54 Pulse Ox 98 05/24/17 07:54 - Medical History PMH: Anemia, Bronchitis, Gall Bladder Disease, Pneumonia, Sickle Cell Disease Surgical History: Cholecystectomy - [facility] Procedures INFLUENZA VACCINATION (03/16/12) INJECT/INFUSE ELECTROLYT (09/07/13) INJECT/INFUSE NEC (01/25/14) INSERTION OF INFUSION DEV INTO SUP VENA CAVA, PERC APPROACH (01/25/17) NEBULIZER THERAPY (12/02/13) PACKED CELL TRANSFUSION (02/12/15) REMOVAL OF VAD FROM TRUNK SUBCU/FASCIA, OPEN APPROACH (04/15/16) TRANSFUSE NONAUT RED BLOOD CELLS IN PERIPH VEIN, PERC (04/17/17) VACCINATION NEC (08/22/13) Family History: States: No Known Family Hx - Social History Hx Tobacco Use: No Hx Alcohol Use: No Hx Substance Use: Yes (marijuana) - Immunization History Hx Tetanus Toxoid Vaccination: Yes Hx Influenza Vaccination: Yes (2015) Hx Pneumococcal Vaccination: Yes (2014) Review Of Systems Except As Marked, All Systems Reviewed And Found Negative. Constitutional: Positive for: Other (chronic body pain). Negative for: Fever, Chills Cardiovascular: Negative for: Chest Pain Respiratory: Negative for: Shortness of Breath Gastrointestinal: Negative for: Nausea, Vomiting, Abdominal Pain Genitourinary: Positive for: Dysuria. Negative for: Frequency, Incontinence Musculoskeletal: Positive for: Back Pain Skin: Negative for: Rash Neurological: Negative for: Weakness, Numbness Physical Exam - Physical Exam Appears: Well, Non-toxic, Other (in mild pain ) Skin: Normal Color, Warm, Dry, No Rash Eye(s): bilateral: Normal Inspection Oral Mucosa: Moist Cardiovascular: Rhythm Regular Respiratory: Normal Breath Sounds, No Rales, No Rhonchi, No Wheezing Gastrointestinal/Abdominal: Normal Exam, Bowel Sounds, Soft, No Tenderness Back: Normal Inspection, No CVA Tenderness, No Vertebral Tenderness, Paraspinal Tenderness (right upper thoracic area, approx T5-&7 level) Extremity: Normal ROM, No Deformity Neurological/Psych: Oriented x3 Gait: Steady ED Course And Treatment - Laboratory Results Result Diagrams: 05/23/17 10:50 05/23/17 10:50 O2 Sat by Pulse Oximetry: 98 (RA) Pulse Ox Interpretation: Normal Progress Note: Blood work, UA ordered and reviewed. Patient was given PO Benadryl, PO Dialudid as per ED sickle cell protocol, as well as IV NS bolus. Reevaluation Time: 13:55 Reassessment Condition: Unchanged (After multiple rounds of pain medication, patient states she still has significant pain. Discussed patient with PMD Dr. Ariel Louis, he agrees with admission for sickle cell disease/crisis.) Disposition - Disposition Disposition: HOSPITALIZED Disposition Time: 13:56 Condition: STABLE - Clinical Impression Clinical Impression: Sickle cell crisis, Sickle cell disease - Scribe Statement The provider has reviewed the documentation as recorded by the Zacheryibvalarie Louis All medical record entries made by the Zacheryibvalarie were at my direction and personally dictated by me. I have reviewed the chart and agree that the record accurately reflects my personal performance of the history, physical exam, medical decision making, and the department course for this patient. I have also personally directed, reviewed, and agree with the discharge instructions and disposition. Decision To Admit - Pt Status Changed To: Hospital Disposition Of: Inpatient - Admit Certification Admit to Inpatient:: After my assessment, the patient will require hospitalization for at least two midnights. This is because of the severity of symptoms shown, intensity of services needed, and/or the medical risk in this patient being treated as an outpatient. - InPatient: Physician Admission Certification:: see notes - . Bed Request Type: Regular Admitting Physician: Enzo Louis Patient Diagnosis: Sickle cell disease, Sickle cell crisis
[2017-05-23 10:57] LABS: BASO # 0.1 K/uL (0.0-0.2); BASO % 0.8 % (0.0-2.0); EOS # 0.2 K/uL (0.0-0.7); EOS % 1.9 % (0.0-4.0); HEMATOCRIT 25.8 % (34.0-47.0); LYMPH # 4.7 K/uL (1.0-4.3); LYMPH % 35.3 % (20.0-40.0); MEAN CORPUSCULAR HEMOGLOBIN 31.1 pg (27.0-31.0); MEAN CORPUSCULAR HGB CONC 33.8 g/dL (33.0-37.0); MONO # 1.2 K/uL (0.0-0.8); MONO % 9.4 % (0.0-10.0); NRBC % 0.3 % (0.0-2.0); RED CELL DISTRIBUTION WIDTH 19.8 % (11.5-14.5); RETIC% 9.4 % (0.5-1.5); WHITE BLOOD COUNT 13.3 K/uL (4.8-10.8)
[2017-05-23 11:11] LABS: ALB/GLOB RATIO 1.5 (1.0-2.1); ALKALINE PHOSPHATASE 101 U/L (38-126); ALT/SGPT 101 U/L (9-52); AST/SGOT 56 U/L (14-36); BILIRUBIN,TOTAL 1.7 mg/dL (0.2-1.3); BLOOD UREA NITROGEN 10 mg/dL (7-17); CALCIUM 8.5 mg/dl (8.6-10.4); CARBON DIOXIDE 23 mmol/L (22-30); CHLORIDE 107 mmol/L (98-107); GFR AFRICAN-AMERICAN > 60; GLUCOSE,RANDOM 93 mg/dL (65-105); POTASSIUM 4.1 mmol/L (3.6-5.2); SODIUM 139 mmol/L (132-148); TOTAL PROTEIN 6.5 g/dL (6.3-8.3)
[2017-05-23 11:14] LABS: URINE BILIRUBIN NEGATIVE (NEGATIVE); URINE BLOOD NEGATIVE (NEGATIVE); URINE COLOR Yellow (YELLOW); URINE GLUCOSE (UA) NORMAL (Normal); URINE KETONE NEGATIVE (NEGATIVE); URINE LEUKOCYTE ESTERASE NEG Leu/uL (Negative); URINE PROTEIN NEGATIVE (NEGATIVE); URINE UROBILINOGEN NORMAL mg/dL (0.2-1.0); WBC URINE 1 /hpf (0-5)
[2017-05-23] MEDS ORDERED: Sodium Chloride 0.9% 1,000 ML ONE (14:05)
--- NOTE | 2017-05-23 15:44 | CP.PCM.HP ---
Past Patient History - Infectious Disease Hx of Infectious Diseases: None - Tetanus Immunizations Tetanus Immunization: Up to Date - Past Medical History & Family History Past Medical History?: Yes - Past Social History Smoking Status: Never Smoked - PULMONARY Hx Bronchitis: Yes Hx Pneumonia: Yes - HEENT Hx HEENT Problems: No - HEMATOLOGICAL/ONCOLOGICAL Hx Anemia: Yes Hx Sickle Cell Disease: Yes - INTEGUMENTARY Hx Dermatological Problems: No - GASTROINTESTINAL Hx Gall Bladder Disease: Yes - PSYCHIATRIC Hx Substance Use: Yes (marijuana) - SURGICAL HISTORY Hx Cholecystectomy: Yes - ANESTHESIA Hx Anesthesia: Yes Hx Anesthesia Reactions: No Hx Malignant Hyperthermia: No Meds Allergies/Adverse Reactions: Allergies Allergy/AdvReac Type Severity Reaction Status Date / Time FISH Allergy Severe RASH Verified 05/23/17 09:14 oxycodone Allergy Severe RASH Verified 05/23/17 09:14 tramadol Allergy Severe RASH Verified 05/23/17 09:14 ketorolac Allergy Intermediate RASH Verified 05/23/17 09:14 Physical Exam - Constitutional Appears: Well - Head Exam Head Exam: ATRAUMATIC, NORMAL INSPECTION, NORMOCEPHALIC - Eye Exam Eye Exam: EOMI, Normal appearance, PERRL Pupil Exam: NORMAL ACCOMODATION, PERRL - ENT Exam ENT Exam: Mucous Membranes Moist, Normal Exam - Neck Exam Neck exam: Positive for: Normal Inspection - Respiratory Exam Respiratory Exam: Decreased Breath Sounds - Cardiovascular Exam Cardiovascular Exam: REGULAR RHYTHM, +S1, +S2 - GI/Abdominal Exam GI & Abdominal Exam: Diminished Bowel Sounds, Soft - Rectal Exam Rectal Exam: Deferred Results - Vital Signs Recent Vital Signs: Last Vital Signs Temp 98.6 F 05/23/17 14:09 Pulse 79 05/23/17 14:09 Resp 20 05/23/17 14:09 BP 137/64 05/23/17 14:09 Pulse Ox 97 05/23/17 14:09 - Labs Result Diagrams: 05/23/17 10:50 05/23/17 10:50 Labs: Laboratory Results - last 24 hr 05/23/17 05/23/17 05/23/17 10:50 10:50 10:50 WBC 13.3 H RBC 2.80 L Hgb 8.7 L Hct 25.8 L MCV 92.0 MCH 31.1 H MCHC 33.8 RDW 19.8 H Plt Count 353 MPV 8.0 Neut % (Auto) 52.6 Lymph % (Auto) 35.3 [place] % (Auto) 9.4 Eos % (Auto) 1.9 Baso % (Auto) 0.8 Neut # 7.0 Lymph # 4.7 H [place] # 1.2 H Eos # 0.2 Baso # 0.1 Retic Count 9.4 H Sodium 139 Potassium 4.1 Chloride 107 Carbon Dioxide 23 Anion Gap 13 BUN 10 Creatinine 0.4 L Est GFR ( Amer) > 60 Est GFR (Non-Af Amer) > 60 Random Glucose 93 Calcium 8.5 L Total Bilirubin 1.7 H AST 56 H ALT 101 H Alkaline Phosphatase 101 Total Protein 6.5 Albumin 3.9 Globulin 2.6 Albumin/Globulin Ratio 1.5 Urine Color Yellow Urine Clarity Clear Urine pH 5.0 Ur Specific [place] 1.011 Urine Protein Negative Urine Glucose (UA) Normal Urine Ketones Negative Urine Blood Negative Urine Nitrate Negative Urine Bilirubin Negative Urine Urobilinogen Normal Ur Leukocyte Esterase Neg Urine WBC (Auto) 1 Ur Squamous Epith Cells 6 H Urine HCG, Qual Negative
[2017-05-23] MEDS: Sodium Chloride 0.9% 1,000 ML IV SCH (17:59)
[2017-05-23] MEDS: DiphenhydrAMINE 50 mg/ml Inj IVP PRN ×2 (19:12→22:14)
[2017-05-23] MEDS: HYDROmorphone 1 mg/ml ISec IVP PRN ×2 (19:15→22:15)
[2017-05-23 23:39] VITALS: O2SAT 98
[2017-05-24] MEDS: HYDROmorphone 1 mg/ml ISec IVP PRN ×4 (01:17→10:37)
[2017-05-24] MEDS: DiphenhydrAMINE 50 mg/ml Inj IVP PRN ×4 (01:17→10:38)
[2017-05-24] MEDS: Sodium Chloride 0.9% 1,000 ML IV SCH (07:27)
[2017-05-24 07:57] VITALS: BP 168/70; PULSE 86; RESP 20; TEMP 98.2
[2017-05-24] MEDS ORDERED: Pantoprazole 40 mg EC Tab PO SCH (10:00)
[2017-05-24] MEDS ORDERED: Enoxaparin 40 mg Syringe SC SCH (10:00)
== END 2017-05-24 13:30 | disposition left against medical advice (07) | DRG 395 ==
LOC: C.ER 09:06 → C.9E 13:56 → C.3T 15:25
PROVIDERS: ADMIT Internal Medicine Nephrology; ATTEND Internal Medicine Nephrology
DX: D57.00 Hb-SS disease with crisis, unspecified (principal); Z87.01 Personal history of pneumonia (recurrent)

== ENCOUNTER 2017-05-28 09:34 | Emergency (ER) | payer MEDICAID ==
[2017-05-28 09:35] VITALS: BMI 24.5
--- NOTE | 2017-05-28 09:48 | C.PDOC ---
History Of Present Illness 31 y/o female with PMHx of Sickle cell presents to ED with complaints of generalized body "sharp stabbing" pain secondary to sickle cell disease. Patient is ambulatory at ED and denies any fever, chills, nausea, recent injury or any other complaints at this time. Time Seen by Provider: 05/28/17 09:47 Chief Complaint (Nursing): Pain, Chronic History Per: Patient History/Exam Limitations: no limitations Onset/Duration Of Symptoms: Days Current Symptoms Are (Timing): Still Present Past Medical History Reviewed: Historical Data, Nursing Documentation, Vital Signs Vital Signs: Last Vital Signs Temp 98.1 F 05/28/17 10:41 Pulse 80 05/28/17 10:41 Resp 18 05/28/17 10:41 BP 109/75 05/28/17 10:41 Pulse Ox 100 05/28/17 10:41 - Medical History PMH: Anemia, Bronchitis, Gall Bladder Disease, Pneumonia, Sickle Cell Disease Surgical History: Cholecystectomy - [facility] Procedures INFLUENZA VACCINATION (03/16/12) INJECT/INFUSE ELECTROLYT (09/07/13) INJECT/INFUSE NEC (01/25/14) INSERTION OF INFUSION DEV INTO SUP VENA CAVA, PERC APPROACH (01/25/17) NEBULIZER THERAPY (12/02/13) PACKED CELL TRANSFUSION (02/12/15) REMOVAL OF VAD FROM TRUNK SUBCU/FASCIA, OPEN APPROACH (04/15/16) TRANSFUSE NONAUT RED BLOOD CELLS IN PERIPH VEIN, PERC (04/17/17) VACCINATION NEC (08/22/13) Family History: States: No Known Family Hx - Social History Hx Tobacco Use: No Hx Alcohol Use: No Hx Substance Use: Yes (marijuana) - Immunization History Hx Tetanus Toxoid Vaccination: Yes Hx Influenza Vaccination: Yes (2015) Hx Pneumococcal Vaccination: Yes (2014) Review Of Systems Constitutional: Negative for: Fever, Chills Cardiovascular: Negative for: Chest Pain Gastrointestinal: Positive for: Abdominal Pain. Negative for: Nausea, Vomiting Musculoskeletal: Positive for: Other (General body pain) Skin: Negative for: Rash Neurological: Negative for: Weakness, Numbness Physical Exam - Physical Exam Appears: Non-toxic, No Acute Distress Skin: Normal Color, Warm, Dry, No Rash Head: Atraumatic, Normacephalic Eye(s): bilateral: Normal Inspection Oral Mucosa: Moist Neck: Supple Cardiovascular: Rhythm Regular Respiratory: Normal Breath Sounds, No Rales, No Rhonchi, No Wheezing Gastrointestinal/Abdominal: Soft, Tenderness (Diffuse), No Guarding, No Rebound Back: No CVA Tenderness Extremity: Normal ROM, Capillary Refill (<2 seconds) Neurological/Psych: Oriented x3, Normal Motor, Normal Sensation ED Course And Treatment O2 Sat by Pulse Oximetry: 99 (RA) Pulse Ox Interpretation: Normal Medical Decision Making Medical Decision Making: Upon evaluation patient was on cell phone Impression: Mild crisis secondary to sickle cell disease Plan: Patient maintaining po intake, Analgesics given and discharge patient. Disposition - Disposition Disposition: HOME/ ROUTINE Disposition Time: 10:19 Condition: GOOD Instructions: Sickle Cell Crisis (ED) Forms: [facility] (Luxembourgish) - Clinical Impression Clinical Impression: Sickle cell crisis - Scribe Statement The provider has reviewed the documentation as recorded by the Rosa Rodriguez All medical record entries made by the Zacheryibvalarie were at my direction and personally dictated by me. I have reviewed the chart and agree that the record accurately reflects my personal performance of the history, physical exam, medical decision making, and the department course for this patient. I have also personally directed, reviewed, and agree with the discharge instructions and disposition.
[2017-05-28 10:42] VITALS: BP 109/75; PULSE 80; RESP 18; TEMP 98.1
[2017-05-28 14:56] VITALS: O2SAT 99
== END 2017-05-28 10:42 | disposition home or self-care (01) ==
LOC: C.ER 09:34
DX: D57.00 Hb-SS disease with crisis, unspecified (principal)

== ENCOUNTER 2017-05-31 11:41 | Inpatient (IN) | payer MEDICAID ==
[2017-05-31 11:42] VITALS: BMI 24.5
[2017-05-31] MEDS ORDERED: DiphenhydrAMINE 12.5 mg/5 ml LIQ UD (5 ml) PO STA (12:10)
[2017-05-31 12:32] LABS: BASO # 0.2 K/uL (0.0-0.2); BASO % 1.1 % (0.0-2.0); EOS # 0.1 K/uL (0.0-0.7); EOS % 0.5 % (0.0-4.0); HEMATOCRIT 27.1 % (34.0-47.0); LYMPH # 5.2 K/uL (1.0-4.3); LYMPH % 27.7 % (20.0-40.0); MEAN CELL VOLUME 91.5 fL (81.0-99.0); MEAN CORPUSCULAR HEMOGLOBIN 31.5 pg (27.0-31.0); MEAN CORPUSCULAR HGB CONC 34.4 g/dL (33.0-37.0); MEAN PLATELET VOLUME 8.3 fL (7.2-11.7); MONO # 1.5 K/uL (0.0-0.8); MONO % 8.1 % (0.0-10.0); NRBC % 0.2 % (0.0-2.0); RED CELL DISTRIBUTION WIDTH 20.6 % (11.5-14.5); WHITE BLOOD COUNT 18.7 K/uL (4.8-10.8)
[2017-05-31 12:41] LABS: INR 1.3
[2017-05-31 12:48] LABS: ALB/GLOB RATIO 1.4 (1.0-2.1); ALKALINE PHOSPHATASE 126 U/L (38-126); ALT/SGPT 118 U/L (9-52); AST/SGOT 71 U/L (14-36); BILIRUBIN,TOTAL 3.3 mg/dL (0.2-1.3); BLOOD UREA NITROGEN 13 mg/dL (7-17); CARBON DIOXIDE 22 mmol/L (22-30); CHLORIDE 105 mmol/L (98-107); GFR AFRICAN-AMERICAN > 60; GLUCOSE,RANDOM 99 mg/dL (65-105); POTASSIUM 3.9 mmol/L (3.6-5.2); SODIUM 138 mmol/L (132-148)
--- NOTE | 2017-05-31 12:52 | C.PDOC ---
History Of Present Illness 31 year-old female, with PMHx of sickle cell disease, presents to the Emergency Department with complaints of body aches, back pain, and dysuria. Patient has a Hx of similar complaints. She denies chest pain, shortness of breath, cough, fever, vomiting/diarrhea, vaginal bleeding/discharge. Of note, patient has portacath insertion tomorrow by Dr. Castro. Time Seen by Provider: 05/31/17 11:56 Chief Complaint (Nursing): Chest Pain History Per: Patient History/Exam Limitations: no limitations Onset/Duration Of Symptoms: Days Current Symptoms Are (Timing): Still Present Severity: Moderate Past Medical History Reviewed: Historical Data, Nursing Documentation, Vital Signs Vital Signs: Last Vital Signs Temp 98.4 F 06/03/17 07:53 Pulse 82 06/03/17 07:53 Resp 20 06/03/17 07:53 BP 102/67 06/03/17 07:53 Pulse Ox 95 06/03/17 07:53 - Medical History PMH: Anemia, Bronchitis, Gall Bladder Disease, Pneumonia, Sickle Cell Disease Surgical History: Cholecystectomy - [facility] Procedures INFLUENZA VACCINATION (03/16/12) INJECT/INFUSE ELECTROLYT (09/07/13) INJECT/INFUSE NEC (01/25/14) INSERTION OF INFUSION DEV INTO SUP VENA CAVA, PERC APPROACH (01/25/17) NEBULIZER THERAPY (12/02/13) PACKED CELL TRANSFUSION (02/12/15) REMOVAL OF VAD FROM TRUNK SUBCU/FASCIA, OPEN APPROACH (04/15/16) TRANSFUSE NONAUT RED BLOOD CELLS IN PERIPH VEIN, PERC (04/17/17) VACCINATION NEC (08/22/13) Family History: States: No Known Family Hx - Social History Hx Tobacco Use: No Hx Alcohol Use: No Hx Substance Use: Yes (marijuana) - Immunization History Hx Tetanus Toxoid Vaccination: Yes Hx Influenza Vaccination: Yes (2015) Hx Pneumococcal Vaccination: Yes (2014) Review Of Systems Except As Marked, All Systems Reviewed And Found Negative. Constitutional: Positive for: Malaise. Negative for: Fever Cardiovascular: Negative for: Chest Pain Respiratory: Negative for: Cough, Shortness of Breath Gastrointestinal: Negative for: Nausea, Vomiting, Abdominal Pain, Diarrhea Neurological: Negative for: Headache, Dizziness Physical Exam - Physical Exam Appears: Well, Non-toxic, No Acute Distress Skin: Warm, Dry, No Rash Head: Normacephalic Eye(s): bilateral: Normal Inspection Oral Mucosa: Moist Cardiovascular: Rhythm Regular Respiratory: Normal Breath Sounds, No Rales, No Rhonchi, No Wheezing Gastrointestinal/Abdominal: Normal Exam, Bowel Sounds, Soft, No Tenderness Back: No CVA Tenderness Extremity: Normal ROM Neurological/Psych: Oriented x3 ED Course And Treatment - Laboratory Results Result Diagrams: 06/03/17 06:48 06/03/17 06:48 ECG: Interpreted By Me, Viewed By Me (NSR 92 bpm, normal axis, no acute ST/T wave changes) ECG Interpretation: Normal O2 Sat by Pulse Oximetry: 98 (RA) Pulse Ox Interpretation: Normal - Radiology CXR: Interpreted by Me, Viewed By Me CXR Interpretation: Yes: No Acute Disease. No: Infiltrates Progress Note: Bloodwork, EKG, UA, Upreg ordered and reviewed. Patient given PO Dilaudid and Benadryl as per ED sickle cell protocol. - Physician Consult Information Physician Contacted: Enzo Louis Outcome Of Conversation: Discussed patient with PMD, agrees with admisison for sickle cell disease/crisis, insertion of portacath. Consult entered for Dr. Castro. Disposition - Disposition Disposition: HOSPITALIZED Disposition Time: 13:37 Condition: STABLE - Clinical Impression Clinical Impression: Admission for fitting of port-a-cath, Sickle cell crisis - Scribe Statement The provider has reviewed the documentation as recorded by the Scribe (Anika Shearer) All medical record entries made by the Scribe were at my direction and personally dictated by me. I have reviewed the chart and agree that the record accurately reflects my personal performance of the history, physical exam, medical decision making, and the department course for this patient. I have also personally directed, reviewed, and agree with the discharge instructions and disposition. Decision To Admit - Pt Status Changed To: Hospital Disposition Of: Inpatient - Admit Certification Admit to Inpatient:: After my assessment, the patient will require hospitalization for at least two midnights. This is because of the severity of symptoms shown, intensity of services needed, and/or the medical risk in this patient being treated as an outpatient. - InPatient: Physician Admission Certification: I certify that this patient requires 2 or more midnights of care for the following reason:: see notes - . Bed Request Type: Regular Admitting Physician: Enzo Louis Patient Diagnosis: Sickle cell crisis, Admission for fitting of port-a-cath
[2017-05-31 13:20] LABS: RETIC% 11.5 % (0.5-1.5)
--- NOTE | 2017-05-31 13:27 | RAD ---
Chest x-ray single frontal view History: Preoperative evaluation. Comparison: 03/29/2017 Findings: Lung garcia are clear. Heart size within normal limits. Bibasilar breast and nipple shadows. Osseous structures are preserved. Impression: No focal infiltrate or effusion.
[2017-05-31] MEDS ORDERED: Sodium Chloride 0.9% 1,000 ML IV ONE (13:38)
[2017-05-31] MEDS ORDERED: Sodium Chloride 0.9% 1,000 ML ONE (13:49)
[2017-05-31] MEDS ORDERED: DiphenhydrAMINE 50 mg/ml Inj IVP SCH (16:45)
[2017-05-31] MEDS: Sodium Chloride 0.9% 1,000 ML IV SCH (17:10)
[2017-05-31] MEDS: DiphenhydrAMINE 50 mg/ml Inj IVP SCH ×2 (20:05→23:00)
[2017-06-01] MEDS: DiphenhydrAMINE 50 mg/ml Inj IVP SCH ×8 (01:03→23:13)
[2017-06-01] MEDS: Sodium Chloride 0.9% 1,000 ML IV SCH ×3 (05:03→23:19)
[2017-06-01 07:02] LABS: HEMATOCRIT 19.9 % (34.0-47.0); MEAN CELL VOLUME 90.4 fL (81.0-99.0); MEAN CORPUSCULAR HEMOGLOBIN 30.9 pg (27.0-31.0); MEAN CORPUSCULAR HGB CONC 34.1 g/dL (33.0-37.0); MEAN PLATELET VOLUME 8.2 fL (7.2-11.7); RED CELL DISTRIBUTION WIDTH 18.3 % (11.5-14.5); WHITE BLOOD COUNT 15.4 K/uL (4.8-10.8)
[2017-06-01 07:50] LABS: BLOOD UREA NITROGEN 10 mg/dL (7-17); CARBON DIOXIDE 24 mmol/L (22-30); CHLORIDE 108 mmol/L (98-107); GFR AFRICAN-AMERICAN > 60; GLUCOSE,RANDOM 84 mg/dL (65-105); POTASSIUM 3.9 mmol/L (3.6-5.2); SODIUM 137 mmol/L (132-148)
[2017-06-01 07:51] LABS: ALB/GLOB RATIO 1.5 (1.0-2.1); ALKALINE PHOSPHATASE 104 U/L (38-126); ALT/SGPT 183 U/L (9-52); AST/SGOT 119 U/L (14-36); CALCIUM 7.5 mg/dl (8.6-10.4); TOTAL PROTEIN 5.7 g/dL (6.3-8.3)
--- NOTE | 2017-06-01 09:12 | CP.PCM.PN ---
Subjective - Date & Time of Evaluation Date of Evaluation: 06/01/17 Time of Evaluation: 09:08 - Subjective Subjective: Progress Note for Dr. Louis's Service This is a 31y/o female, with PMHx of sickle cell disease who presented to the ED yesterday with complaints of body aches, severe back pain, and dysuria. She denied chest pain, shortness of breath, cough, fever, vomiting/diarrhea, vaginal bleeding/discharge. She was admitted yesterday for likely sickle cell crisis. Of note, the patient was seen by Dr. Castro, who had scheduled her for portacath insertion today. This morning the patient continues to have diffuse generalized pain and states that it feels similar to previous sickle cell bouts. She denies F/C/N/V/CP/SOB/diarrhea. Past medical hx: sickle cell anemia Past surgical hx: splenectomy in 2008, cholecystectomy in 2007 Family hx: Dad has sickle cell disease, mother has sickle cell trait and HTN, maternal grandmother had breast cancer, paternal grandmother had lung cancer, half siblings have sickle cell trait Social hx: admits to occasional marijuana use, denies alcohol use, denies tobacco use Meds: Dilaudid 4 mg PO q 3-4 hrs, oxycontin 40 q12, benadryl 25 mg ( administered with dilaudid), folic acid 1 mg daily, hydroxyurea 500 mg PO TID ( non-compliant with hydroxyurea) Allergies: oxycontin, tramadol, toradol, Fish ( not including shellfish). Patient develops hives to all the aforementioned PMD: Dr. Raymond Objective - Vital Signs/Intake and Output Vital Signs (last 24 hours): Temp Pulse Resp BP Pulse Ox 98.4 F 87 20 101/68 96 06/01/17 07:35 06/01/17 07:35 06/01/17 07:35 06/01/17 07:35 06/01/17 07:35 Intake and Output: 06/01/17 06/01/17 06:59 18:59 Intake Total 600 Balance 600 - Medications Medications: Current Medications Diphenhydramine HCl (Benadryl) 25 mg IVP Q3H [facility] Last Admin: 06/01/17 08:31 Dose: 25 mg Enoxaparin Sodium (Lovenox) 40 mg SC DAILY [facility] Hydromorphone HCl (Dilaudid) 2 mg IVP Q3H [facility] Last Admin: 06/01/17 08:32 Dose: 2 mg Sodium Chloride (Sodium Chloride 0.9%) 1,000 mls @ 75 mls/hr IV .[id number] [facility] Last Admin: 06/01/17 06:30 Dose: Not Given Pantoprazole Sodium (Protonix Ec Tab) 40 mg PO DAILY [facility] - Labs Labs: 06/01/17 06:52 06/01/17 06:52 PT 15.4 SECONDS (9.7-12.2) H 05/31/17 12:27 INR 1.3 05/31/17 12:27 APTT 52 SECONDS (21-34) H 05/31/17 12:27 - Constitutional Appears: No Acute Distress - Head Exam Head Exam: ATRAUMATIC, NORMAL INSPECTION - Eye Exam Eye Exam: EOMI, Normal appearance - ENT Exam ENT Exam: Mucous Membranes Moist - Respiratory Exam Respiratory Exam: Clear to Ausculation Bilateral, NORMAL BREATHING PATTERN - Cardiovascular Exam Cardiovascular Exam: REGULAR RHYTHM, +S1, +S2 - GI/Abdominal Exam GI & Abdominal Exam: Soft, Normal Bowel Sounds. absent: Tenderness - Extremities Exam Extremities Exam: Normal Inspection. absent: Calf Tenderness, Joint Swelling - Neurological Exam Neurological Exam: Alert, Awake, Oriented x3 - Psychiatric Exam Psychiatric exam: Normal Affect, Normal Mood - Skin Skin Exam: Dry, Warm Assessment and Plan - Assessment and Plan (Free Text) Plan: 31 year old Female with hx of Sickle Cell disease with extensive hospital visits , presenting in acute crisis Sickle Cell Crisis Dilaudid 2mg IVP Q3H Benadryl 25mg IVP Q3H Folic Acid 1mg PO daily Patient was seen by Dr. Portillo in November 2016 who recommended hydroxyurea but she reports non-compliance because it makes her hair fall out Consult placed to surgery Dr. Castro for possible port placement Anemia Hgb 9.3->6.8 Monitor Consider transfusion Follow up cbc and type and cross Leukocytosis 15.4 Possibly a response to sickle cell Continue to monitor for resolution CXR negative Transaminitis AST/ALT: 119/183 Pt has a hx of tranaminitis Hepatitis panel in November 2016 was negative Prophylactic Measure Lovenox 40mg SC daily Protonix 40mg PO daily Case discussed with Dr. Louis All management as per Dr. Louis
[2017-06-01] MEDS ORDERED: Enoxaparin 40 mg Syringe SC SCH (10:00)
[2017-06-01] MEDS ORDERED: Lidocaine 1% Inj (20ml) ONE (10:09)
[2017-06-01] MEDS ORDERED: Iohexol 240 (50 ml) ONE (10:09)
[2017-06-01] MEDS ORDERED: HEPARIN-NS 5,000 UNITS/500 ML 5,000 UNIT/500 ML BAG IV ONE (10:14)
[2017-06-01] MEDS: Pantoprazole 40 mg EC Tab PO SCH (10:16)
[2017-06-01] MEDS ORDERED: Midazolam 2 MG/2 ML VIAL ONE (11:16)
[2017-06-01] MEDS ORDERED: Propofol 10 mg/ml Inj (20 ML) ONE (11:17)
[2017-06-01] MEDS ORDERED: Lactated Ringer's 1,000 ML IV ONE ×2 (11:18→14:15)
[2017-06-01] MEDS ORDERED: ceFAZolin IV 1 gm in Dextrose 1 GM/50 ML BAG IVPB ONE (11:42)
[2017-06-01] MEDS ORDERED: ePHEDrine 50 mg/ml Inj ONE (12:06)
[2017-06-01] MEDS: HYDROmorphone 0.5 mg/0.5 ml ISec IVP PRN ×2 (12:45→13:09)
--- NOTE | 2017-06-01 13:23 | RAD ---
Chest x-ray single frontal view History: Port-A-Cath insertion. Comparison: 05/31/2017 Findings: Right chest wall port with tip extending to the cavoatrial junction. No evidence of postprocedure pneumothorax. Mild right hilar prominence. Heart size within normal limits. Osseous structures are preserved. Surgical clips in the upper abdomen. Impression No evidence of postprocedure pneumothorax
[2017-06-01 16:37] VITALS: RESP 20
--- NOTE | 2017-06-01 19:17 | CP.PCM.HP ---
Past Patient History - Infectious Disease Hx of Infectious Diseases: None - Tetanus Immunizations Tetanus Immunization: Up to Date - Past Medical History & Family History Past Medical History?: Yes - Past Social History Smoking Status: Smoker Currrent Status Unknown - PULMONARY Hx Bronchitis: Yes Hx Pneumonia: Yes - HEENT Hx HEENT Problems: No - HEMATOLOGICAL/ONCOLOGICAL Hx Anemia: Yes Hx Sickle Cell Disease: Yes - INTEGUMENTARY Hx Dermatological Problems: No - MUSCULOSKELETAL/RHEUMATOLOGICAL Hx Falls: No - GASTROINTESTINAL Hx Gall Bladder Disease: Yes - PSYCHIATRIC Hx Substance Use: Yes (marijuana) - SURGICAL HISTORY Hx Cholecystectomy: Yes - ANESTHESIA Hx Anesthesia: Yes Hx Anesthesia Reactions: No Hx Malignant Hyperthermia: No Meds Allergies/Adverse Reactions: Allergies Allergy/AdvReac Type Severity Reaction Status Date / Time FISH Allergy Severe RASH Verified 05/31/17 11:56 oxycodone Allergy Severe RASH Verified 05/31/17 11:56 tramadol Allergy Severe RASH Verified 05/31/17 11:56 ketorolac Allergy Intermediate RASH Verified 05/31/17 11:56 Physical Exam - Constitutional Appears: Well - Head Exam Head Exam: ATRAUMATIC, NORMAL INSPECTION, NORMOCEPHALIC - Eye Exam Eye Exam: EOMI, Normal appearance, PERRL Pupil Exam: NORMAL ACCOMODATION, PERRL - ENT Exam ENT Exam: Mucous Membranes Moist, Normal Exam - Neck Exam Neck exam: Positive for: Normal Inspection - Respiratory Exam Respiratory Exam: Decreased Breath Sounds - Cardiovascular Exam Cardiovascular Exam: REGULAR RHYTHM, +S1, +S2 - GI/Abdominal Exam GI & Abdominal Exam: Diminished Bowel Sounds, Soft - Rectal Exam Rectal Exam: Deferred Results - Vital Signs Recent Vital Signs: Last Vital Signs Temp 98.6 F 06/01/17 15:20 Pulse 90 06/01/17 15:20 Resp 20 06/01/17 15:20 BP 114/69 06/01/17 15:20 Pulse Ox 96 06/01/17 15:20 - Labs Result Diagrams: 06/01/17 06:52 06/01/17 06:52 Labs: Laboratory Results - last 24 hr 06/01/17 06/01/17 06:52 06:52 WBC 15.4 H RBC 2.20 L Hgb 6.8 L D Hct 19.9 L MCV 90.4 MCH 30.9 MCHC 34.1 RDW 18.3 H Plt Count 336 MPV 8.2 Sodium 137 Potassium 3.9 Chloride 108 H Carbon Dioxide 24 Anion Gap 9 L BUN 10 Creatinine 0.5 L Est GFR ( Amer) > 60 Est GFR (Non-Af Amer) > 60 Random Glucose 84 Calcium 7.5 L Total Bilirubin 3.0 H AST 119 H D ALT 183 H D Alkaline Phosphatase 104 Total Protein 5.7 L Albumin 3.5 D Globulin 2.3 Albumin/Globulin Ratio 1.5
--- NOTE | 2017-06-01 22:16 | CARD ---
APPROVED REPORT EKG Measurement Heart [id number] <Conclusion> Normal sinus rhythm Normal ECG
[2017-06-02] MEDS: DiphenhydrAMINE 50 mg/ml Inj IVP SCH ×8 (01:51→23:27)
[2017-06-02 07:09] LABS: BASO # 0.1 K/uL (0.0-0.2); BASO % 0.8 % (0.0-2.0); EOS # 0.3 K/uL (0.0-0.7); EOS % 2.4 % (0.0-4.0); HEMATOCRIT 17.7 % (34.0-47.0); LYMPH # 5.9 K/uL (1.0-4.3); LYMPH % 43.3 % (20.0-40.0); MEAN CELL VOLUME 90.2 fL (81.0-99.0); MEAN CORPUSCULAR HEMOGLOBIN 31.4 pg (27.0-31.0); MEAN CORPUSCULAR HGB CONC 34.8 g/dL (33.0-37.0); MONO # 1.3 K/uL (0.0-0.8); MONO % 9.3 % (0.0-10.0); NRBC % 0.2 % (0.0-2.0); RED CELL DISTRIBUTION WIDTH 18.4 % (11.5-14.5); WHITE BLOOD COUNT 13.7 K/uL (4.8-10.8)
[2017-06-02 07:40] LABS: ALB/GLOB RATIO 1.4 (1.0-2.1); ALKALINE PHOSPHATASE 107 U/L (38-126); ALT/SGPT 131 U/L (9-52); AST/SGOT 79 U/L (14-36); BILIRUBIN,TOTAL 2.2 mg/dL (0.2-1.3); BLOOD UREA NITROGEN 6 mg/dL (7-17); CALCIUM 7.5 mg/dl (8.6-10.4); CARBON DIOXIDE 26 mmol/L (22-30); CHLORIDE 102 mmol/L (98-107); GFR AFRICAN-AMERICAN > 60; GLUCOSE,RANDOM 79 mg/dL (65-105); POTASSIUM 3.6 mmol/L (3.6-5.2); SODIUM 132 mmol/L (132-148); TOTAL PROTEIN 5.4 g/dL (6.3-8.3)
[2017-06-02 09:31] LABS: RETIC% 8.6 % (0.5-1.5)
[2017-06-02] MEDS: Sodium Chloride 0.9% 1,000 ML IV SCH (10:00)
[2017-06-02] MEDS: Pantoprazole 40 mg EC Tab PO SCH (10:44)
--- NOTE | 2017-06-02 13:27 | CP.PCM.PN ---
Subjective - Date & Time of Evaluation Date of Evaluation: 06/02/17 Time of Evaluation: 13:23 - Subjective Subjective: Progress Note for Dr. Louis's Service Pt seen and examined at bedside. She continues to have diffuse pain from her sickle cell crisis. She is POD 2 s/p port placement done by Dr. Castro. Pt's hgb this morning is 6.1. She received one unit PRBC this morning. She denies F/C /N/V/D/C/CP/SOB. She is ambulating well and walking the hallways; using SCD's while in bed. Objective - Vital Signs/Intake and Output Vital Signs (last 24 hours): Temp Pulse Resp BP Pulse Ox 99 F 103 H 20 124/77 96 06/02/17 12:39 06/02/17 12:39 06/02/17 12:39 06/02/17 12:39 06/02/17 07:39 Intake and Output: 06/02/17 06/02/17 06:59 18:59 Intake Total 1000 900 Balance 1000 900 - Medications Medications: Current Medications Acetaminophen (Tylenol 325mg Tab) 650 mg PO STAT STA Stop: 06/02/17 13:21 Diphenhydramine HCl (Benadryl) 25 mg IVP Q3H [facility] Last Admin: 06/02/17 11:33 Dose: 25 mg Enoxaparin Sodium (Lovenox) 40 mg SC DAILY [facility] Folic Acid (Folic Acid) 1 mg PO DAILY [facility] Last Admin: 06/02/17 10:44 Dose: 1 mg Hydromorphone HCl (Dilaudid) 2 mg IVP Q3H [facility] Last Admin: 06/02/17 11:34 Dose: 2 mg Sodium Chloride (Sodium Chloride 0.9%) 1,000 mls @ 75 mls/hr IV .[id number] [facility] Last Admin: 06/02/17 10:00 Dose: Not Given Pantoprazole Sodium (Protonix Ec Tab) 40 mg PO DAILY [facility] Last Admin: 06/02/17 10:44 Dose: 40 mg - Labs Labs: 06/02/17 07:04 06/02/17 07:04 PT 15.4 SECONDS (9.7-12.2) H 05/31/17 12:27 INR 1.3 05/31/17 12:27 APTT 52 SECONDS (21-34) H 05/31/17 12:27 - Constitutional Appears: No Acute Distress - Head Exam Head Exam: ATRAUMATIC, NORMOCEPHALIC - Eye Exam Eye Exam: EOMI - ENT Exam ENT Exam: Mucous Membranes Moist - Respiratory Exam Respiratory Exam: Clear to Ausculation Bilateral, NORMAL BREATHING PATTERN Additional comments: right side port placed- dressing c/d/i - Cardiovascular Exam Cardiovascular Exam: REGULAR RHYTHM, +S1, +S2 - GI/Abdominal Exam GI & Abdominal Exam: Soft. absent: Tenderness - Extremities Exam Extremities Exam: Normal Inspection. absent: Calf Tenderness - Neurological Exam Neurological Exam: Alert, Awake, Oriented x3 - Psychiatric Exam Psychiatric exam: Normal Affect - Skin Skin Exam: Dry, Intact, Warm Assessment and Plan - Assessment and Plan (Free Text) Plan: Sickle Cell Crisis Dilaudid 2mg IVP Q3H Benadryl 25mg IVP Q3H Folic Acid 1mg PO daily Patient was seen by Dr. Portillo in November 2016 who recommended hydroxyurea but she reports non-compliance because it makes her hair fall out Consult placed to surgery Dr. Castro for possible port placement- port successfully placed 06/01 Anemia Hgb 9.3->6.8->6.1 s/p 1 unit PRBC follow up CBC 6pm Leukocytosis- improved 15.40->13.7 Possibly a response to sickle cell Continue to monitor for resolution CXR negative Transaminitis- improved AST/ALT: 119/183->79/131 Pt has a hx of tranaminitis Hepatitis panel in November 2016 was negative Prophylactic Measure SCD's- pt is ambulatory Protonix 40mg PO daily Case discussed with Dr. Louis All management as per Dr. Louis
[2017-06-02 19:07] LABS: BASO # 0.1 K/uL (0.0-0.2); BASO % 0.4 % (0.0-2.0); EOS # 0.3 K/uL (0.0-0.7); EOS % 1.9 % (0.0-4.0); HEMATOCRIT 24.2 % (34.0-47.0); LYMPH # 6.3 K/uL (1.0-4.3); MEAN CELL VOLUME 89.4 fL (81.0-99.0); MEAN CORPUSCULAR HEMOGLOBIN 30.3 pg (27.0-31.0); MEAN CORPUSCULAR HGB CONC 33.9 g/dL (33.0-37.0); MEAN PLATELET VOLUME 8.1 fL (7.2-11.7); MONO # 1.6 K/uL (0.0-0.8); MONO % 9.7 % (0.0-10.0); NRBC % 0.4 % (0.0-2.0); RED CELL DISTRIBUTION WIDTH 17.1 % (11.5-14.5); WHITE BLOOD COUNT 16.2 K/uL (4.8-10.8)
--- NOTE | 2017-06-02 19:13 | CP.PCM.PN ---
Subjective - Date & Time of Evaluation Date of Evaluation: 06/02/17 Time of Evaluation: 09:00 - Subjective Subjective: clinically same Objective - Vital Signs/Intake and Output Vital Signs (last 24 hours): Temp Pulse Resp BP Pulse Ox 98.5 F 81 20 115/58 L 98 06/02/17 15:50 06/02/17 15:50 06/02/17 15:50 06/02/17 15:50 06/02/17 15:00 Intake and Output: 06/02/17 06/03/17 18:59 06:59 Intake Total 1999 Balance 1999 - Medications Medications: Current Medications Diphenhydramine HCl (Benadryl) 25 mg IVP Q3H [facility] Last Admin: 06/02/17 17:37 Dose: 25 mg Enoxaparin Sodium (Lovenox) 40 mg SC DAILY [facility] Folic Acid (Folic Acid) 1 mg PO DAILY [facility] Last Admin: 06/02/17 10:44 Dose: 1 mg Hydromorphone HCl (Dilaudid) 2 mg IVP Q3H [facility] Last Admin: 06/02/17 17:35 Dose: 2 mg Sodium Chloride (Sodium Chloride 0.9%) 1,000 mls @ 75 mls/hr IV .[id number] [facility] Last Admin: 06/02/17 10:00 Dose: Not Given Pantoprazole Sodium (Protonix Ec Tab) 40 mg PO DAILY [facility] Last Admin: 06/02/17 10:44 Dose: 40 mg - Labs Labs: 06/02/17 19:04 06/02/17 07:04 PT 15.4 SECONDS (9.7-12.2) H 05/31/17 12:27 INR 1.3 05/31/17 12:27 APTT 52 SECONDS (21-34) H 05/31/17 12:27 - Constitutional Appears: Well - Head Exam Head Exam: ATRAUMATIC, NORMAL INSPECTION, NORMOCEPHALIC - Eye Exam Eye Exam: EOMI, Normal appearance, PERRL Pupil Exam: NORMAL ACCOMODATION, PERRL - ENT Exam ENT Exam: Mucous Membranes Moist, Normal Exam - Neck Exam Neck Exam: Full ROM, Normal Inspection. absent: Lymphadenopathy - Respiratory Exam Respiratory Exam: Decreased Breath Sounds - Cardiovascular Exam Cardiovascular Exam: REGULAR RHYTHM, +S1, +S2 - GI/Abdominal Exam GI & Abdominal Exam: Soft, Diminished Bowel Sounds - Rectal Exam Rectal Exam: Deferred
[2017-06-03 01:16] VITALS: TEMP 98.4
[2017-06-03] MEDS: Sodium Chloride 0.9% 1,000 ML IV SCH ×2 (02:18→11:57)
[2017-06-03] MEDS: DiphenhydrAMINE 50 mg/ml Inj IVP SCH ×5 (02:20→14:16)
[2017-06-03 06:53] LABS: BASO # 0.1 K/uL (0.0-0.2); BASO % 0.7 % (0.0-2.0); EOS # 0.3 K/uL (0.0-0.7); EOS % 2.7 % (0.0-4.0); HEMATOCRIT 23.1 % (34.0-47.0); LYMPH # 5.8 K/uL (1.0-4.3); LYMPH % 44.9 % (20.0-40.0); MEAN CELL VOLUME 90.8 fL (81.0-99.0); MEAN CORPUSCULAR HEMOGLOBIN 31.9 pg (27.0-31.0); MEAN CORPUSCULAR HGB CONC 35.1 g/dL (33.0-37.0); MEAN PLATELET VOLUME 8.2 fL (7.2-11.7); MONO # 1.2 K/uL (0.0-0.8); MONO % 9.4 % (0.0-10.0); NRBC % 0.4 % (0.0-2.0)
[2017-06-03 07:08] LABS: ALB/GLOB RATIO 1.5 (1.0-2.1); ALKALINE PHOSPHATASE 98 U/L (38-126); ALT/SGPT 117 U/L (9-52); AST/SGOT 67 U/L (14-36); BILIRUBIN,TOTAL 2.2 mg/dL (0.2-1.3); BLOOD UREA NITROGEN 9 mg/dL (7-17); CALCIUM 7.9 mg/dl (8.6-10.4); CARBON DIOXIDE 29 mmol/L (22-30); CHLORIDE 102 mmol/L (98-107); GFR AFRICAN-AMERICAN > 60; GLUCOSE,RANDOM 80 mg/dL (65-105); POTASSIUM 3.7 mmol/L (3.6-5.2); SODIUM 135 mmol/L (132-148); TOTAL PROTEIN 5.5 g/dL (6.3-8.3)
[2017-06-03 07:54] VITALS: BP 102/67; PULSE 82
[2017-06-03] MEDS: Pantoprazole 40 mg EC Tab PO SCH (10:42)
[2017-06-03] MEDS ORDERED: Povidone Iodine Oint 10% Foilpak UD TOP ONE (13:31)
--- NOTE | 2017-06-03 14:46 | CP.PCM.PN ---
Subjective - Date & Time of Evaluation Date of Evaluation: 06/03/17 Time of Evaluation: 07:50 - Subjective Subjective: PGY2 medicine progress note for Dr. Louis Patient seen and examined. Patient states she feels better today after blood transfusion. Patient complains of ankle discomfort near former IV site. Patient has no other complaints. Objective - Vital Signs/Intake and Output Vital Signs (last 24 hours): Temp Pulse Resp BP Pulse Ox 98.4 F 82 20 102/67 95 06/03/17 07:53 06/03/17 07:53 06/03/17 07:53 06/03/17 07:53 06/03/17 07:53 Intake and Output: 06/03/17 06/03/17 06:59 18:59 Intake Total 2400 950 Balance 2400 950 - Labs Labs: 06/03/17 06:48 06/03/17 06:48 PT 15.4 SECONDS (9.7-12.2) H 05/31/17 12:27 INR 1.3 05/31/17 12:27 APTT 52 SECONDS (21-34) H 05/31/17 12:27 - Constitutional Appears: No Acute Distress - Head Exam Head Exam: ATRAUMATIC, NORMOCEPHALIC - Eye Exam Eye Exam: EOMI - ENT Exam ENT Exam: Mucous Membranes Moist - Neck Exam Additional comments: port placed right chest, clean and dry dressing - Respiratory Exam Respiratory Exam: Clear to Ausculation Bilateral - Cardiovascular Exam Cardiovascular Exam: +S1, +S2 - GI/Abdominal Exam GI & Abdominal Exam: Soft, Normal Bowel Sounds. absent: Tenderness - Extremities Exam Additional comments: minimal left foot swelling at site where IV was previously inserted - Neurological Exam Neurological Exam: Alert, Awake - Psychiatric Exam Psychiatric exam: Normal Affect - Skin Skin Exam: Warm Assessment and Plan - Assessment and Plan (Free Text) Assessment: Sickle Cell Crisis Dilaudid 2mg IVP Q3H Benadryl 25mg IVP Q3H Folic Acid 1mg PO daily Patient states she takes hydroxyurea 500mg TID Consult placed to surgery Dr. Castro for possible port placement- port successfully placed 06/01 Anemia Hgb 9.3->6.8->6.1 s/p 1 unit PRBC Hgb 06/03: 8.1 Leukocytosis- improved 15.40->13.7-> 13.0 Possibly a response to sickle cell Continue to monitor for resolution CXR negative Transaminitis- improved AST/ALT: 119/183->79/131 Pt has a hx of tranaminitis Hepatitis panel in November 2016 was negative Prophylactic Measure SCD's- pt is ambulatory Protonix 40mg PO daily All management as per Dr. Louis Patient is stable for discharge home per Dr. Tejal Lousi. Patient is to follow up with Dr. Louis on discharge. Patient is to resume her home medications of hydroxyurea and folic acid. Patient is to return to the ED if her symptoms reoccur or worsen.
[2017-06-04 08:47] VITALS: O2SAT 98
--- NOTE | 2017-06-04 20:04 | OP ---
PROCEDURE DATE: 05/31/2017 PREOPERATIVE DIAGNOSIS: Port-A-Cath. POSTOPERATIVE DIAGNOSIS: Port-A-Cath. PROCEDURE: Port-A-Cath insertion. SURGEON: Hernan Castro MD. ANESTHESIA: General. ESTIMATED BLOOD LOSS: 20 mL. POSTOPERATIVE CONDITION: Stable. INDICATIONS FOR SURGERY: This is a 31-year-old female status post multiple [id number] for sickle cell disease, who will have a new one placed today. DESCRIPTION OF PROCEDURE: The patient taken to the operating room, general anesthesia administered. The right neck and chest wall prepped and draped. Right internal jugular vein was easily cannulated. A guidewire was inserted. Next, on the chest wall, tissue flaps were raised through previous Port-A-Cath sites and fair amount of scar tissue was encountered. Bleeding was controlled using the Bovie. A subclavicular bleeding blood vessel was repaired. The wound was irrigated with copious amounts of saline solution. The catheter was then tunneled into the neck puncture site and inserted over an introducer. This was confirmed fluoroscopically. Next, the port was placed under the tissue flaps and tissue flap closure was performed with multiple layers of Monocryl, subcuticular Monocryl, and glue. The patient tolerated the procedure well, returned to recovery room in stable condition. Hernan Castro MD
== END 2017-06-03 14:15 | disposition home or self-care (01) | DRG 395 ==
LOC: C.ER 11:41 → C.9E 13:37 → C.3T 15:09
PROVIDERS: ADMIT Internal Medicine Nephrology; ATTEND Internal Medicine Nephrology
PROC: 0JH60WZ Insertion of Totally Implantable Vascular Access Device into Chest Subcutaneous Tissue and Fascia, Open Approach (ICD-10-PCS; principal; 2017-06-01 11:18)
DX: D57.00 Hb-SS disease with crisis, unspecified (principal); D72.829 Elevated white blood cell count, unspecified; F12.90 Cannabis use, unspecified, uncomplicated; Z45.2 Encounter for adjustment and management of vascular access device; Z87.01 Personal history of pneumonia (recurrent); Z90.49 Acquired absence of other specified parts of digestive tract; Z90.81 Acquired absence of spleen; Z91.14 Patient's other noncompliance with medication regimen

== ENCOUNTER 2017-06-10 09:05 | Emergency (ER) | payer MEDICAID ==
[2017-06-10 09:07] VITALS: BMI 24.5
--- NOTE | 2017-06-10 09:49 | C.PDOC ---
History Of Present Illness 31 year-old female, with PMHx includes sickle cell disease, presents to the Emergency Department with complaints of body aches, similar to previous sickle cell pain. Patient has a Hx of similar complaints, and has been seen in ER for same complaint multiple times in the past. She denies chest pain, shortness of breath, cough, fever, vomiting/diarrhea, vaginal bleeding/discharge. Of note, patient had portacath insertion done on 06/01. Time Seen by Provider: 06/10/17 09:44 Chief Complaint (Nursing): Flu-like Symptoms History Per: Patient History/Exam Limitations: no limitations Past Medical History Reviewed: Historical Data, Nursing Documentation, Vital Signs Vital Signs: Last Vital Signs Temp 99.5 F 06/10/17 09:14 Pulse 87 06/10/17 09:14 Resp 20 06/10/17 09:14 BP 110/71 06/10/17 09:14 Pulse Ox 100 06/10/17 09:54 - Medical History PMH: Anemia, Bronchitis, Gall Bladder Disease, Pneumonia, Sickle Cell Disease Denies: Chronic Kidney Disease Surgical History: Cholecystectomy - [facility] Procedures INFLUENZA VACCINATION (03/16/12) INJECT/INFUSE ELECTROLYT (09/07/13) INJECT/INFUSE NEC (01/25/14) INSERT VAD RESERVOIR IN CHEST SUBCU/FASCIA, OPEN (05/31/17) INSERTION OF INFUSION DEV INTO SUP VENA CAVA, PERC APPROACH (01/25/17) NEBULIZER THERAPY (12/02/13) PACKED CELL TRANSFUSION (02/12/15) REMOVAL OF VAD FROM TRUNK SUBCU/FASCIA, OPEN APPROACH (04/15/16) TRANSFUSE NONAUT RED BLOOD CELLS IN PERIPH VEIN, PERC (04/17/17) VACCINATION NEC (08/22/13) Family History: States: No Known Family Hx - Social History Hx Tobacco Use: No Hx Alcohol Use: No Hx Substance Use: Yes (marijuana) - Immunization History Hx Tetanus Toxoid Vaccination: Yes Hx Influenza Vaccination: Yes (2015) Hx Pneumococcal Vaccination: Yes (2014) Review Of Systems Except As Marked, All Systems Reviewed And Found Negative. Constitutional: Positive for: Malaise. Negative for: Fever Cardiovascular: Negative for: Chest Pain Respiratory: Negative for: Shortness of Breath Gastrointestinal: Negative for: Nausea, Vomiting Musculoskeletal: Negative for: Back Pain Neurological: Negative for: Weakness, Numbness Physical Exam - Physical Exam Appears: Non-toxic, No Acute Distress Skin: Warm, Dry, No Rash Head: Atraumatic, Normacephalic Eye(s): bilateral: Normal Inspection, PERRL, EOMI Nose: Normal Oral Mucosa: Moist Lips: Normal Appearing Neck: Normal ROM, Supple Chest: Symmetrical, No Tenderness Cardiovascular: Rhythm Regular, No Friction Rub, No Murmur Respiratory: Normal Breath Sounds, No Accessory Muscle Use, No Stridor, No Wheezing Gastrointestinal/Abdominal: Soft, No Tenderness, No Guarding, No Rebound Extremity: Normal ROM Neurological/Psych: Oriented x3, Normal Speech ED Course And Treatment O2 Sat by Pulse Oximetry: 100 (on Ra) Pulse Ox Interpretation: Normal Medical Decision Making Medical Decision Making: Bloodwork, EKG, UA, Upreg ordered and reviewed. Patient given PO Dilaudid and Benadryl as per ED sickle cell protocol. On re-exam, the patient reports improvement of symptoms. Lungs are CTA, heart is RRR, abdomen is soft, non-tender and tolerating PO well. Ambulatory with steady gait. Follow up with the medical doctor within 1-2 days. Return if worsened. Disposition - Disposition Referrals: Enzo Louis MD [Staff Provider] - Disposition: HOME/ ROUTINE Disposition Time: 12:09 Condition: GOOD Additional Instructions: Follow up with the medical doctor within 1-2 days. Return if worsened. Instructions: Sickle Cell Anemia (DC) Forms: [facility] [employer] (I[place]ic) - Clinical Impression Clinical Impression: Chronic pain, Sickle cell disease - Scribe Statement The provider has reviewed the documentation as recorded by the Scribe (Anika Shearer) All medical record entries made by the Scribe were at my direction and personally dictated by me. I have reviewed the chart and agree that the record accurately reflects my personal performance of the history, physical exam, medical decision making, and the department course for this patient. I have also personally directed, reviewed, and agree with the discharge instructions and disposition.
[2017-06-10 11:21] LABS: RBC URINE 1 /hpf (0-3); URINE BACTERIA RARE (<OCC); URINE BILIRUBIN NEGATIVE (NEGATIVE); URINE BLOOD NEGATIVE (NEGATIVE); URINE COLOR Yellow (YELLOW); URINE GLUCOSE (UA) NORMAL (Normal); URINE KETONE NEGATIVE (NEGATIVE); URINE LEUKOCYTE ESTERASE NEG Leu/uL (Negative); URINE PROTEIN NEGATIVE (NEGATIVE); URINE UROBILINOGEN NORMAL mg/dL (0.2-1.0); WBC URINE 1 /hpf (0-5)
[2017-06-10 12:16] VITALS: BP 122/74; PULSE 81; RESP 18; TEMP 97.6; O2SAT 96
== END 2017-06-10 12:15 | disposition home or self-care (01) ==
LOC: C.ER 09:05
DX: G89.29 Other chronic pain (principal); D57.1 Sickle-cell disease without crisis

== ENCOUNTER 2017-06-11 12:09 | Inpatient (IN) | payer MEDICAID ==
[2017-06-11 12:09] VITALS: BMI 24.5
[2017-06-11] MEDS ORDERED: Sodium Chloride 0.9% 1,000 ML IV STA (13:28)
[2017-06-11] MEDS ORDERED: HYDROmorphone 1 mg/ml ISec IVP STA (13:28)
[2017-06-11] MEDS ORDERED: Sodium Chloride 0.9% 1,000 ML ONE (13:50)
[2017-06-11 13:52] LABS: BASO # 0.1 K/uL (0.0-0.2); BASO % 0.5 % (0.0-2.0); EOS # 0.3 K/uL (0.0-0.7); HEMOGLOBIN 8.2 g/dL (11.0-16.0); LYMPH # 5.7 K/uL (1.0-4.3); LYMPH % 20.4 % (20.0-40.0); MEAN CELL VOLUME 91.7 fL (81.0-99.0); MEAN CORPUSCULAR HEMOGLOBIN 31.4 pg (27.0-31.0); MEAN CORPUSCULAR HGB CONC 34.2 g/dL (33.0-37.0); MEAN PLATELET VOLUME 8.2 fL (7.2-11.7); MONO # 1.8 K/uL (0.0-0.8); MONO % 6.4 % (0.0-10.0); NEUT % 71.7 % (50.0-75.0); NRBC % 0.2 % (0.0-2.0); RBC 2.62 Mil/uL (3.80-5.20); RED CELL DISTRIBUTION WIDTH 18.6 % (11.5-14.5)
[2017-06-11 13:54] LABS: WHITE BLOOD COUNT 27.9 K/uL (4.8-10.8)
[2017-06-11 14:03] LABS: HCG,QUALITATIVE URINE NEGATIVE (NEGATIVE)
[2017-06-11 14:16] LABS: ALB/GLOB RATIO 1.3 (1.0-2.1); ALBUMIN 3.8 g/dL (3.5-5.0); ALT/SGPT 109 U/L (9-52); AST/SGOT 59 U/L (14-36); BLOOD UREA NITROGEN 10 mg/dL (7-17); CALCIUM 8.4 mg/dl (8.6-10.4); GFR AFRICAN-AMERICAN > 60; GFR NON-AFRICAN AMERICAN > 60; LIPASE 45 U/L (23-300)
[2017-06-11 14:17] LABS: SQUAMOUS EPITHIAL 14 /hpf (0-5); URINE BACTERIA RARE (<OCC); URINE BILIRUBIN NEGATIVE (NEGATIVE); URINE BLOOD NEGATIVE (NEGATIVE); URINE CLARITY Hazy (Clear); URINE COLOR Yellow (YELLOW); URINE GLUCOSE (UA) NORMAL (Normal); URINE LEUKOCYTE ESTERASE NEG Leu/uL (Negative); URINE NITRATE NEGATIVE (NEGATIVE); URINE PROTEIN NEGATIVE (NEGATIVE); URINE UROBILINOGEN NORMAL mg/dL (0.2-1.0)
[2017-06-11] MEDS ORDERED: DiphenhydrAMINE 50 mg/ml Inj IVP STA (15:02)
[2017-06-11] MEDS ORDERED: DiphenhydrAMINE 50 mg/ml Inj ONE (15:04)
--- NOTE | 2017-06-11 15:56 | C.PDOC ---
History Of Present Illness 31 y/o female hx Sickle Cell Anaemia presents to the ED with typical crisis of Sickle Cell Anemia consisted of chest pain, body aches, vomiting twice , and generalized abdominal pain since yesterday. The patient was seen yesterday fro the same symptoms. The patient denies dizziness, headaches, and diarrhea. Time Seen by Provider: 06/11/17 13:03 Chief Complaint (Nursing): Abdominal Pain History Per: Patient Onset/Duration Of Symptoms: Days Current Symptoms Are (Timing): Still Present Associated Symptoms: Vomiting. denies: Fever, Chills, Nausea, Diarrhea Additional History Per: Patient Past Medical History Reviewed: Historical Data, Nursing Documentation, Vital Signs Vital Signs: Last Vital Signs Temp 98.1 F 06/11/17 18:15 Pulse 90 06/11/17 18:15 Resp 18 06/11/17 18:15 BP 126/86 06/11/17 18:15 Pulse Ox 95 06/11/17 18:15 - Medical History PMH: Anemia, Bronchitis, Gall Bladder Disease, Pneumonia, Sickle Cell Disease Denies: Chronic Kidney Disease Surgical History: Cholecystectomy - [facility] Procedures INFLUENZA VACCINATION (03/16/12) INJECT/INFUSE ELECTROLYT (09/07/13) INJECT/INFUSE NEC (01/25/14) INSERT VAD RESERVOIR IN CHEST SUBCU/FASCIA, OPEN (05/31/17) INSERTION OF INFUSION DEV INTO SUP VENA CAVA, PERC APPROACH (01/25/17) NEBULIZER THERAPY (12/02/13) PACKED CELL TRANSFUSION (02/12/15) REMOVAL OF VAD FROM TRUNK SUBCU/FASCIA, OPEN APPROACH (04/15/16) TRANSFUSE NONAUT RED BLOOD CELLS IN PERIPH VEIN, PERC (04/17/17) VACCINATION NEC (08/22/13) Family History: States: No Known Family Hx - Social History Hx Tobacco Use: No Hx Alcohol Use: No Hx Substance Use: Yes (marijuana) - Immunization History Hx Tetanus Toxoid Vaccination: Yes Hx Influenza Vaccination: Yes (2015) Hx Pneumococcal Vaccination: Yes (2014) Review Of Systems Except As Marked, All Systems Reviewed And Found Negative. Constitutional: Positive for: Malaise. Negative for: Fever, Chills Cardiovascular: Positive for: Chest Pain Respiratory: Negative for: Cough, Shortness of Breath Gastrointestinal: Positive for: Vomiting (twice ), Abdominal Pain (generalized ) Skin: Negative for: Rash Physical Exam - Physical Exam Appears: Non-toxic, No Acute Distress Skin: Warm, Dry Head: Atraumatic, Normacephalic Eye(s): bilateral: PERRL Oral Mucosa: Moist Neck: Supple Chest: Symmetrical Cardiovascular: Rhythm Regular Respiratory: Normal Breath Sounds Gastrointestinal/Abdominal: Soft, Tenderness (diffused in the epigastric region and low abdomen bilaterally ), No Guarding, No Rebound Back: Normal Inspection Extremity: Capillary Refill (2<sec.) Neurological/Psych: Oriented x3, Normal Speech, Normal Cognition Gait: Steady ED Course And Treatment - Laboratory Results Result Diagrams: 06/11/17 13:49 06/11/17 13:49 O2 Sat by Pulse Oximetry: 100 (RA) - CT Scan/US CT abdomen/pelvis Other Rad Studies (CT/US): Read By Radiologist, Radiology Report Reviewed CT/US Interpretation: Accession No. : [id number]. Patient Name / ID : JACK SEGURA / [id number]. Exam Date : 06/11/2017 15:42:35 ( Approved ). Study Comment : Sex / Age : F / 31Y. Creator : Lorena Fuentes. Dictator : Zainab Baugh MD. Slasher Operator : Health Worker : Zainab Baugh MD. Approver2 : Report Date : 06/11/2017 15:53:08. My Comment : . PROCEDURE: CT Abdomen and Pelvis without Oral or IV contrast. HISTORY: abd pain/ vomiting, elevated WBCs. COMPARISON: CT abdomen pelvis without IV contrast performed 11/04/16. TECHNIQUE: Contiguous axial images of the abdomen and pelvis. No oral or IV contrast administered. Coronal and Sagittal reformats generated and reviewed. Radiation dose: Total exam DLP = 270.57 mGy-cm. This CT exam was performed using one or more of the following dose reduction techniques: Automated exposure control, adjustment of the mA and/or kV according to patient size, and/or use of iterative reconstruction technique. FINDINGS: There is limited evaluation of the solid organs without the administration of IV contrast. LOWER THORAX: No visible consolidation, pleural effusion, or pneumothorax. LIVER: 15 mm hepatic dome hypodense lesion , indeterminate. Hepatomegaly. Hyperdense liver. GALLBLADDER AND BILE DUCTS: Cholecystectomy. PANCREAS: Unremarkable unenhanced appearance. SPLEEN: Not visualized. ADRENALS: Unremarkable unenhanced appearance. KIDNEYS AND URETERS : Malrotated and ptotic right kidney. No hydronephrosis or obstructing renal calculus. BLADDER: The urinary bladder appears unremarkable. REPRODUCTIVE: Uterus is present. APPENDIX: The appendix is not identified. No secondary signs of acute appendicitis. BOWEL: The stomach is nondistended. Lack of oral contrast limits evaluation for bowel pathology. The bowel loops appear within normal limits of caliber without evidence of intestinal obstruction. Moderate constipation. PERITONEUM: No significant free fluid. No definite free air. LYMPH NODES: Indeterminate high density regions, possibly calcified lymph nodes involving the keyana hepatis as well as portacaval region. VASCULATURE: No aortic aneurysm. BONES: No acute osseous abnormality is detected. OTHER FINDINGS: Left upper quadrant surgical changes. IMPRESSION: Moderate constipation. 15 mm hepatic dome hypodense lesion, indeterminate. Hepatomegaly. Hyperdense liver of unclear etiology ; correlate clinically for a history of conditions resulting and increased iron deposition such as with hemochromatosis or hemosiderosis ; glycogen storage diseases ; etc. Cholecystectomy. Malrotated hepatic right kidney. Splenectomy. Indeterminate high density density regions, possibly calcified lymph nodes involving the keyana hepatis as well as portacaval region. Additional findings as above. Progress Note: Plan- blood work, IV fluids, pain control, and white count has elevated, Ct scan> Patient was treated with IVF, Dilaudid x 3, Benadryl x 1. After treatment patient still c/o abdominal pain. WBC elevated. case was d/w pt' s PMD who accepted patient to his service for observation. Disposition - Disposition Referrals: Enzo Louis MD [Staff Provider] - Disposition: HOSPITALIZED Disposition Time: 17:06 Condition: FAIR Additional Instructions: Follow up with your PMD within 1-2 days. Return to ED if feel worse. Instructions: Sickle Cell Crisis (ED), Leukocytosis (ED), Abdominal Pain (ED) Forms: [facility] (Swedish) - Clinical Impression Clinical Impression: Abdominal pain, Sickle cell crisis, Leukocytosis - PA / PHARMACY SPECIALIST / Resident Statement MD/DO has examined the patient and agrees with the treatment plan. - Scribe Statement The provider has reviewed the documentation as recorded by the Scribe Joceline Bella
--- NOTE | 2017-06-11 16:16 | CT ---
PROCEDURE: CT Abdomen and Pelvis without Oral or IV contrast. HISTORY: abd pain/vomiting, elevated WBCs COMPARISON: CT abdomen pelvis without IV contrast performed 11/04/16 TECHNIQUE: Contiguous axial images of the abdomen and pelvis. No oral or IV contrast administered. Coronal and Sagittal reformats generated and reviewed. Radiation dose: Total exam DLP = 270.57 mGy-cm. This CT exam was performed using one or more of the following dose reduction techniques: Automated exposure control, adjustment of the mA and/or kV according to patient size, and/or use of iterative reconstruction technique. FINDINGS: There is limited evaluation of the solid organs without the administration of IV contrast. LOWER THORAX: No visible consolidation, pleural effusion, or pneumothorax. LIVER: 15 mm hepatic dome hypodense lesion, indeterminate. Hepatomegaly. Hyperdense liver. GALLBLADDER AND BILE DUCTS: Cholecystectomy. PANCREAS: Unremarkable unenhanced appearance. SPLEEN: Not visualized. ADRENALS: Unremarkable unenhanced appearance. KIDNEYS AND URETERS: Malrotated and ptotic right kidney. No hydronephrosis or obstructing renal calculus. BLADDER: The urinary bladder appears unremarkable. REPRODUCTIVE: Uterus is present. APPENDIX: The appendix is not identified. No secondary signs of acute appendicitis. BOWEL: The stomach is nondistended. Lack of oral contrast limits evaluation for bowel pathology. The bowel loops appear within normal limits of caliber without evidence of intestinal obstruction. Moderate constipation. PERITONEUM: No significant free fluid. No definite free air. LYMPH NODES: Indeterminate high density regions, possibly calcified lymph nodes involving the keyana hepatis as well as portacaval region. VASCULATURE: No aortic aneurysm. BONES: No acute osseous abnormality is detected. OTHER FINDINGS: Left upper quadrant surgical changes. IMPRESSION: Moderate constipation. 15 mm hepatic dome hypodense lesion, indeterminate. Hepatomegaly. Hyperdense liver of unclear etiology ; correlate clinically for a history of conditions resulting and increased iron deposition such as with hemochromatosis or hemosiderosis ; glycogen storage diseases ; etc. Cholecystectomy. Malrotated hepatic right kidney. Splenectomy. Indeterminate high density density regions, possibly calcified lymph nodes involving the keyana hepatis as well as portacaval region. Additional findings as above.
[2017-06-11] MEDS ORDERED: HYDROmorphone 1 mg/ml ISec IVP PRN (22:01)
--- NOTE | 2017-06-11 22:49 | CP.PCM.HP ---
Past Patient History - Infectious Disease Hx of Infectious Diseases: None - Tetanus Immunizations Tetanus Immunization: Up to Date - Past Medical History & Family History Past Medical History?: Yes - Past Social History Smoking Status: Light Smoker < 10 Cigarettes Daily - PULMONARY Hx Bronchitis: Yes Hx Pneumonia: Yes - HEENT Hx HEENT Problems: No - RENAL Hx Chronic Kidney Disease: No - HEMATOLOGICAL/ONCOLOGICAL Hx Anemia: Yes Hx Sickle Cell Disease: Yes - INTEGUMENTARY Hx Dermatological Problems: No - MUSCULOSKELETAL/RHEUMATOLOGICAL Hx Falls: No - GASTROINTESTINAL Hx Gall Bladder Disease: Yes - PSYCHIATRIC Hx Substance Use: Yes (marijuana) - SURGICAL HISTORY Hx Surgeries: Yes Hx Cholecystectomy: Yes Other/Comment: EMMANUEL CATH REINSERTION 06/10/17 - ANESTHESIA Hx Anesthesia: Yes Hx Anesthesia Reactions: No Hx Malignant Hyperthermia: No Has any member of the family had a problem w/ anesthesia?: No Meds Allergies/Adverse Reactions: Allergies Allergy/AdvReac Type Severity Reaction Status Date / Time FISH Allergy Severe RASH Verified 06/10/17 09:13 oxycodone Allergy Severe RASH Verified 06/10/17 09:13 tramadol Allergy Severe RASH Verified 06/10/17 09:13 ketorolac Allergy Intermediate RASH Verified 06/10/17 09:13 Results - Vital Signs Recent Vital Signs: Last Vital Signs Temp 98.1 F 06/11/17 20:35 Pulse 98 H 06/11/17 20:35 Resp 20 06/11/17 20:35 BP 122/71 06/11/17 20:35 Pulse Ox 98 06/11/17 20:35 - Labs Result Diagrams: 06/11/17 13:49 06/11/17 13:49 Labs: Laboratory Results - last 24 hr 06/11/17 06/11/17 06/11/17 13:49 13:49 13:49 WBC 27.9 H D RBC 2.62 L Hgb 8.2 L Hct 24.0 L MCV 91.7 MCH 31.4 H MCHC 34.2 RDW 18.6 H Plt Count 326 MPV 8.2 Neut % (Auto) 71.7 Lymph % (Auto) 20.4 [place] % (Auto) 6.4 Eos % (Auto) 1.0 Baso % (Auto) 0.5 Neut # 20.0 H Lymph # 5.7 H [place] # 1.8 H Eos # 0.3 Baso # 0.1 Differential Comment Retic Count 9.5 H D Sodium 133 Potassium 3.9 Chloride 99 Carbon Dioxide 28 Anion Gap 10 BUN 10 Creatinine 0.4 L Est GFR ( Amer) > 60 Est GFR (Non-Af Amer) > 60 Random Glucose 88 Calcium 8.4 L Total Bilirubin 1.7 H AST 59 H ALT 109 H Alkaline Phosphatase 123 Total Protein 6.8 Albumin 3.8 Globulin 2.9 Albumin/Globulin Ratio 1.3 Lipase 45 Urine Color Yellow Urine Clarity Hazy Urine pH 5.0 Ur Specific [place] 1.011 Urine Protein Negative Urine Glucose (UA) Normal Urine Ketones Negative Urine Blood Negative Urine Nitrate Negative Urine Bilirubin Negative Urine Urobilinogen Normal Ur Leukocyte Esterase Neg Urine WBC (Auto) 5 Urine RBC (Auto) 2 Ur Squamous Epith Cells 14 H Urine Bacteria Rare Urine HCG, Qual Negative
[2017-06-11] MEDS: Dextrose 5%/0.45% NS 1,000 ML IV SCH (22:52)
[2017-06-11] MEDS: DiphenhydrAMINE 50 mg/ml Inj IVP SCH (22:53)
[2017-06-12] MEDS: DiphenhydrAMINE 50 mg/ml Inj IVP SCH ×8 (01:47→22:54)
[2017-06-12 08:48] VITALS: RESP 20
--- NOTE | 2017-06-12 09:00 | CP.PCM.PN ---
Subjective - Date & Time of Evaluation Date of Evaluation: 06/12/17 Time of Evaluation: 07:30 - Subjective Subjective: PGY-[address] Ariel Louis Patient seen and examined at bedside. Patient still complains of pain all over her body, which is similar to the sickle cell attacks she had in the past. Patient states she takes hydroxyurea, folic acid, and pepcid daily at home. Patient denies fever, chills, shortness of breath, diarrhea, or urinary symptoms. Objective - Vital Signs/Intake and Output Vital Signs (last 24 hours): Temp Pulse Resp BP Pulse Ox 98.4 F 85 20 111/59 L 97 06/12/17 08:48 06/12/17 08:48 06/12/17 08:48 06/12/17 08:48 06/12/17 08:48 Intake and Output: 06/12/17 06/12/17 06:59 18:59 Intake Total 1215 Balance 1215 - Medications Medications: Current Medications Diphenhydramine HCl (Benadryl) 25 mg IVP Q3 [facility] Last Admin: 06/12/17 07:56 Dose: 25 mg Enoxaparin Sodium (Lovenox) 40 mg SC DAILY [facility] Hydromorphone HCl (Dilaudid) 1 mg IVP Q3H PRN PRN Reason: Pain, moderate (4-7) Last Admin: 06/12/17 07:57 Dose: 1 mg Hydroxyurea (Hydrea) 500 mg PO TID [facility] Dextrose/Sodium Chloride (Dextrose 5%/0.45% Ns 1000 Ml) 1,000 mls @ 75 mls/hr IV .[id number] [facility] Last Admin: 06/11/17 22:52 Dose: 75 mls/hr Pantoprazole Sodium (Protonix Ec Tab) 40 mg PO DAILY [facility] - Labs Labs: 06/11/17 13:49 06/11/17 13:49 - Constitutional Appears: No Acute Distress - Head Exam Head Exam: ATRAUMATIC, NORMOCEPHALIC - Eye Exam Eye Exam: Normal appearance - ENT Exam ENT Exam: Mucous Membranes Moist - Respiratory Exam Respiratory Exam: Clear to Ausculation Bilateral, NORMAL BREATHING PATTERN. absent: Respiratory Distress - Cardiovascular Exam Cardiovascular Exam: +S1, +S2 Additional comments: Right chest port intact and clean - GI/Abdominal Exam GI & Abdominal Exam: Soft, Tenderness. absent: Hernia, Mass - Extremities Exam Extremities Exam: Normal Capillary Refill, Normal Inspection - Neurological Exam Neurological Exam: Alert, Awake, Oriented x3 - Psychiatric Exam Psychiatric exam: Normal Affect, Normal Mood - Skin Skin Exam: Normal Color, Warm Assessment and Plan - Assessment and Plan (Free Text) Assessment: Sickle Cell Crisis Dilaudid 1mg IVP Q3H Benadryl 25mg IVP Q3H Folic Acid 1mg PO daily Hydroxyurea 500mg TID D5/NS @75ml/hr Retic count 9.5 Heme/onc consulted, Dr. Portillo help appreciated Anemia Hgb 8.2, stable Stool occult negative 06/02/17 Leukocytosis WBC 27.9 Possibly a response to sickle cell Continue to monitor for resolution Transaminitis AST/ALT: 59/109 Pt has a hx of tranaminitis Hepatitis panel in November 2016 was negative Prophylactic Measure Lovenox 40mg SC Protonix 40mg PO daily All management as per Dr. Louis
[2017-06-12] MEDS: Enoxaparin 40 mg Syringe SC SCH (10:30)
[2017-06-12] MEDS: Pantoprazole 40 mg EC Tab PO SCH (10:30)
--- NOTE | 2017-06-12 13:28 | CP.PCM.CON ---
History of Present Illness - History of Present Illness History of Present Illness: 31 year old female with a history of sickle cell anemia admitted with sickle cell pain crisis. The patient reports to abdominal discomfort with nausea and vomiting which exacerbated her sickle pain. She reports her pain began in her lower chest and upper abdomen. This began to worsen and was not alleviated by by oral narcotics which prompted her to seek care in the ER. In the ER she continued to have pain despite pain medication and was admitted for further pain control. She denies fevers, chills, headache, shortness of breath , and chest pain. Her pain is diffuse in nature and consistent with prior sickle cell pain crisis. Past medical history: Sickle cell anemia. Past surgical history: Cholecystectomy, splenectomy, portacatheter placement. Family history: Father and sister has SS disease, mother and brother have sickle cell trait. Social history: Denies tobacco, alcohol, and illicit drug use. Allergies: Oxycodone, ketorolac. Review of systems: All remaining review of systems including HEENT, cardiovascular, respiratory, gastrointestinal, genitourinary, musculoskeletal, dermatologic, and neurologic are negative unless mentioned in the HPI. Past Patient History - Infectious Disease Hx of Infectious Diseases: None - Tetanus Immunizations Tetanus Immunization: Up to Date - Past Medical History & Family History Past Medical History?: Yes - Past Social History Smoking Status: Light Smoker < 10 Cigarettes Daily - PULMONARY Hx Bronchitis: Yes Hx Pneumonia: Yes - HEENT Hx HEENT Problems: No - RENAL Hx Chronic Kidney Disease: No - HEMATOLOGICAL/ONCOLOGICAL Hx Anemia: Yes Hx Sickle Cell Disease: Yes - INTEGUMENTARY Hx Dermatological Problems: No - MUSCULOSKELETAL/RHEUMATOLOGICAL Hx Falls: No - GASTROINTESTINAL Hx Gall Bladder Disease: Yes - PSYCHIATRIC Hx Substance Use: Yes (marijuana) - SURGICAL HISTORY Hx Surgeries: Yes Hx Cholecystectomy: Yes Other/Comment: EMMANUEL CATH REINSERTION 06/10/17 - ANESTHESIA Hx Anesthesia: Yes Hx Anesthesia Reactions: No Hx Malignant Hyperthermia: No Has any member of the family had a problem w/ anesthesia?: No Meds Allergies/Adverse Reactions: Allergies Allergy/AdvReac Type Severity Reaction Status Date / Time FISH Allergy Severe RASH Verified 06/10/17 09:13 oxycodone Allergy Severe RASH Verified 06/10/17 09:13 tramadol Allergy Severe RASH Verified 06/10/17 09:13 ketorolac Allergy Intermediate RASH Verified 06/10/17 09:13 - Medications Medications: Current Medications Diphenhydramine HCl (Benadryl) 25 mg IVP Q3 [facility] Last Admin: 06/12/17 11:01 Dose: 25 mg Enoxaparin Sodium (Lovenox) 40 mg SC DAILY [facility] Last Admin: 06/12/17 10:30 Dose: 40 mg Folic Acid (Folic Acid) 1 mg PO DAILY [facility] Last Admin: 06/12/17 10:30 Dose: 1 mg Hydromorphone HCl (Dilaudid) 1 mg IVP Q3H PRN PRN Reason: Pain, moderate (4-7) Last Admin: 06/12/17 11:04 Dose: 1 mg Hydroxyurea (Hydrea) 500 mg PO TID [facility] Last Admin: 06/12/17 10:30 Dose: 500 mg Dextrose/Sodium Chloride (Dextrose 5%/0.45% Ns 1000 Ml) 1,000 mls @ 75 mls/hr IV .[id number] [facility] Last Admin: 06/11/17 22:52 Dose: 75 mls/hr Pantoprazole Sodium (Protonix Ec Tab) 40 mg PO DAILY [facility] Last Admin: 06/12/17 10:30 Dose: 40 mg Physical Exam - Head Exam Head Exam: ATRAUMATIC - Eye Exam Eye Exam: Normal appearance - ENT Exam ENT Exam: Mucous Membranes Dry - Respiratory Exam Respiratory Exam: NORMAL BREATHING PATTERN - Cardiovascular Exam Cardiovascular Exam: +S1, +S2 - GI/Abdominal Exam GI & Abdominal Exam: Normal Bowel Sounds - Extremities Exam Extremities exam: Positive for: normal inspection - Neurological Exam Neurological exam: Oriented x3 - Psychiatric Exam Psychiatric exam: Normal Affect, Normal Mood - Skin Skin Exam: Warm Results - Vital Signs Recent Vital Signs: Last Vital Signs Temp 98.4 F 06/12/17 08:48 Pulse 85 06/12/17 08:48 Resp 20 06/12/17 08:48 BP 111/59 L 06/12/17 08:48 Pulse Ox 97 06/12/17 08:48 - Labs Result Diagrams: 06/11/17 13:49 06/11/17 13:49 Labs: Laboratory Results - last 24 hr 06/11/17 06/11/17 06/11/17 13:49 13:49 13:49 WBC 27.9 H D RBC 2.62 L Hgb 8.2 L Hct 24.0 L MCV 91.7 MCH 31.4 H MCHC 34.2 RDW 18.6 H Plt Count 326 MPV 8.2 Neut % (Auto) 71.7 Lymph % (Auto) 20.4 [place] % (Auto) 6.4 Eos % (Auto) 1.0 Baso % (Auto) 0.5 Neut # 20.0 H Lymph # 5.7 H [place] # 1.8 H Eos # 0.3 Baso # 0.1 Differential Comment Retic Count 9.5 H D Sodium 133 Potassium 3.9 Chloride 99 Carbon Dioxide 28 Anion Gap 10 BUN 10 Creatinine 0.4 L Est GFR ( Amer) > 60 Est GFR (Non-Af Amer) > 60 Random Glucose 88 Calcium 8.4 L Total Bilirubin 1.7 H AST 59 H ALT 109 H Alkaline Phosphatase 123 Total Protein 6.8 Albumin 3.8 Globulin 2.9 Albumin/Globulin Ratio 1.3 Lipase 45 Urine Color Yellow Urine Clarity Hazy Urine pH 5.0 Ur Specific [place] 1.011 Urine Protein Negative Urine Glucose (UA) Normal Urine Ketones Negative Urine Blood Negative Urine Nitrate Negative Urine Bilirubin Negative Urine Urobilinogen Normal Ur Leukocyte Esterase Neg Urine WBC (Auto) 5 Urine RBC (Auto) 2 Ur Squamous Epith Cells 14 H Urine Bacteria Rare Urine HCG, Qual Negative Assessment & Plan (1) Sickle cell pain crisis Assessment and Plan: IV fluids, pain meds, folic acid, 02 via NC no current indication for transfusion Status: Acute (2) Leukocytosis Assessment and Plan: on antibiotics may have reactive component to sickle cell Status: Acute (3) Secondary hemochromatosis Assessment and Plan: secondary to repeat PRBC transfusion discussed importance of outpatient chelation and minimizing transfusions pt does not f/u in outpatient setting Status: Acute (4) Sickle cell anemia Assessment and Plan: outpatient folic acid and hydrea Thank you for this interesting consult. Status: Chronic
[2017-06-12] MEDS: Dextrose 5%/0.45% NS 1,000 ML IV SCH ×2 (13:35→22:40)
[2017-06-12] MEDS: Azithromycin 500 MG in Sodium Chloride 0.9% 250 ML IVPB SCH (19:28)
--- NOTE | 2017-06-12 19:32 | CP.PCM.PN ---
Subjective - Date & Time of Evaluation Date of Evaluation: 06/12/17 Time of Evaluation: 08:20 - Subjective Subjective: clinically same Objective - Vital Signs/Intake and Output Vital Signs (last 24 hours): Temp Pulse Resp BP Pulse Ox 98.5 F 90 20 112/65 97 06/12/17 16:00 06/12/17 16:00 06/12/17 16:00 06/12/17 16:00 06/12/17 16:00 Intake and Output: 06/12/17 06/13/17 18:59 06:59 Intake Total 900 Output Total 600 Balance 300 - Medications Medications: Current Medications Diphenhydramine HCl (Benadryl) 25 mg IVP Q3 [facility] Last Admin: 06/12/17 17:01 Dose: 25 mg Enoxaparin Sodium (Lovenox) 40 mg SC DAILY [facility] Last Admin: 06/12/17 10:30 Dose: 40 mg Folic Acid (Folic Acid) 1 mg PO DAILY [facility] Last Admin: 06/12/17 10:30 Dose: 1 mg Hydromorphone HCl (Dilaudid) 1 mg IVP Q3H PRN PRN Reason: Pain, moderate (4-7) Last Admin: 06/12/17 17:03 Dose: 1 mg Hydroxyurea (Hydrea) 500 mg PO TID [facility] Last Admin: 06/12/17 17:11 Dose: 500 mg Dextrose/Sodium Chloride (Dextrose 5%/0.45% Ns 1000 Ml) 1,000 mls @ 75 mls/hr IV .[id number] [facility] Last Admin: 06/12/17 13:35 Dose: 75 mls/hr Ceftriaxone Sodium 1 gm/ (Sodium Chloride) 100 mls @ 100 mls/hr IVPB Q24H [facility] Azithromycin 500 mg/ Sodium (Chloride) 250 mls @ 250 mls/hr IVPB Q24H [facility] Last Admin: 06/12/17 19:28 Dose: 250 mls/hr Pantoprazole Sodium (Protonix Ec Tab) 40 mg PO DAILY [facility] Last Admin: 06/12/17 10:30 Dose: 40 mg - Labs Labs: 06/11/17 13:49 06/11/17 13:49 - Constitutional Appears: Well - Head Exam Head Exam: ATRAUMATIC, NORMAL INSPECTION, NORMOCEPHALIC - Eye Exam Eye Exam: EOMI, Normal appearance, PERRL Pupil Exam: NORMAL ACCOMODATION, PERRL - ENT Exam ENT Exam: Mucous Membranes Moist, Normal Exam - Neck Exam Neck Exam: Full ROM, Normal Inspection. absent: Lymphadenopathy - Respiratory Exam Respiratory Exam: Decreased Breath Sounds - Cardiovascular Exam Cardiovascular Exam: REGULAR RHYTHM, +S1, +S2 - GI/Abdominal Exam GI & Abdominal Exam: Soft, Diminished Bowel Sounds - Rectal Exam Rectal Exam: Deferred
[2017-06-13] MEDS: DiphenhydrAMINE 50 mg/ml Inj IVP SCH ×5 (01:55→13:57)
[2017-06-13] MEDS: Dextrose 5%/0.45% NS 1,000 ML IV SCH ×2 (01:57→11:58)
[2017-06-13 08:12] LABS: BASO # 0.1 K/uL (0.0-0.2); BASO % 0.7 % (0.0-2.0); EOS # 0.3 K/uL (0.0-0.7); EOS % 1.8 % (0.0-4.0); HEMOGLOBIN 7.1 g/dL (11.0-16.0); LYMPH # 5.2 K/uL (1.0-4.3); LYMPH % 28.6 % (20.0-40.0); MEAN CELL VOLUME 91.7 fL (81.0-99.0); MEAN CORPUSCULAR HEMOGLOBIN 31.3 pg (27.0-31.0); MEAN CORPUSCULAR HGB CONC 34.1 g/dL (33.0-37.0); MEAN PLATELET VOLUME 8.5 fL (7.2-11.7); MONO # 1.2 K/uL (0.0-0.8); MONO % 6.5 % (0.0-10.0); NEUT # 11.3 K/uL (1.8-7.0); NEUT % 62.4 % (50.0-75.0); NRBC % 0.3 % (0.0-2.0); RBC 2.28 Mil/uL (3.80-5.20); RED CELL DISTRIBUTION WIDTH 17.9 % (11.5-14.5); WHITE BLOOD COUNT 18.2 K/uL (4.8-10.8)
[2017-06-13 08:26] LABS: ALB/GLOB RATIO 1.2 (1.0-2.1); ALBUMIN 3.4 g/dL (3.5-5.0); ALT/SGPT 225 U/L (9-52); AST/SGOT 123 U/L (14-36); BLOOD UREA NITROGEN 9 mg/dL (7-17); CALCIUM 7.9 mg/dl (8.6-10.4); GFR AFRICAN-AMERICAN > 60; GFR NON-AFRICAN AMERICAN > 60
[2017-06-13] MEDS: Enoxaparin 40 mg Syringe SC SCH (09:33)
[2017-06-13] MEDS: Pantoprazole 40 mg EC Tab PO SCH (09:33)
--- NOTE | 2017-06-13 12:08 | CP.PCM.PN ---
Subjective - Date & Time of Evaluation Date of Evaluation: 06/13/17 Time of Evaluation: 07:40 - Subjective Subjective: clinically same Objective - Vital Signs/Intake and Output Vital Signs (last 24 hours): Temp Pulse Resp BP Pulse Ox 98.8 F 79 20 101/65 96 06/13/17 08:18 06/13/17 08:18 06/13/17 08:18 06/13/17 08:18 06/13/17 08:18 Intake and Output: 06/13/17 06/13/17 06:59 18:59 Intake Total 2205 Balance 2205 - Medications Medications: Current Medications Diphenhydramine HCl (Benadryl) 25 mg IVP Q3 [facility] Last Admin: 06/13/17 10:53 Dose: 25 mg Enoxaparin Sodium (Lovenox) 40 mg SC DAILY [facility] Last Admin: 06/13/17 09:33 Dose: 40 mg Folic Acid (Folic Acid) 1 mg PO DAILY [facility] Last Admin: 06/13/17 09:33 Dose: 1 mg Hydromorphone HCl (Dilaudid) 1 mg IVP Q3H PRN PRN Reason: Pain, moderate (4-7) Last Admin: 06/13/17 10:55 Dose: 1 mg Hydroxyurea (Hydrea) 500 mg PO TID [facility] Last Admin: 06/13/17 09:33 Dose: 500 mg Dextrose/Sodium Chloride (Dextrose 5%/0.45% Ns 1000 Ml) 1,000 mls @ 75 mls/hr IV .[id number] [facility] Last Admin: 06/13/17 11:58 Dose: 75 mls/hr Ceftriaxone Sodium 1 gm/ (Sodium Chloride) 100 mls @ 100 mls/hr IVPB Q24H [facility] Last Admin: 06/12/17 22:39 Dose: 100 mls/hr Azithromycin 500 mg/ Sodium (Chloride) 250 mls @ 250 mls/hr IVPB Q24H [facility] Last Admin: 06/12/17 19:28 Dose: 250 mls/hr Pantoprazole Sodium (Protonix Ec Tab) 40 mg PO DAILY [facility] Last Admin: 06/13/17 09:33 Dose: 40 mg - Labs Labs: 06/13/17 08:03 06/13/17 08:03 - Constitutional Appears: Well - Head Exam Head Exam: ATRAUMATIC, NORMAL INSPECTION, NORMOCEPHALIC - Eye Exam Eye Exam: EOMI, Normal appearance, PERRL Pupil Exam: NORMAL ACCOMODATION, PERRL - ENT Exam ENT Exam: Mucous Membranes Moist, Normal Exam - Neck Exam Neck Exam: Full ROM, Normal Inspection. absent: Lymphadenopathy - Respiratory Exam Respiratory Exam: Decreased Breath Sounds - Cardiovascular Exam Cardiovascular Exam: REGULAR RHYTHM, +S1, +S2 - GI/Abdominal Exam GI & Abdominal Exam: Soft, Diminished Bowel Sounds - Rectal Exam Rectal Exam: Deferred
[2017-06-13] MEDS ORDERED: DiphenhydrAMINE 50 mg/ml Inj IVP PRN (15:42)
[2017-06-13] MEDS: Azithromycin 500 MG in Sodium Chloride 0.9% 250 ML IVPB SCH (20:13)
--- NOTE | 2017-06-13 20:15 | CP.PCM.PN ---
Subjective - Date & Time of Evaluation Date of Evaluation: 06/13/17 Time of Evaluation: 18:35 - Subjective Subjective: Feeling better. H/H noted Objective - Vital Signs/Intake and Output Vital Signs (last 24 hours): Temp Pulse Resp BP Pulse Ox 98.5 F 93 H 20 121/77 100 06/13/17 15:00 06/13/17 15:00 06/13/17 15:00 06/13/17 15:00 06/13/17 15:00 Intake and Output: 06/13/17 06/14/17 18:59 06:59 Intake Total 1400 Balance 1400 - Medications Medications: Current Medications Diphenhydramine HCl (Benadryl) 25 mg IVP Q3H PRN PRN Reason: Itching / Pruritus Enoxaparin Sodium (Lovenox) 40 mg SC DAILY [facility] Last Admin: 06/13/17 09:33 Dose: 40 mg Folic Acid (Folic Acid) 1 mg PO DAILY [facility] Last Admin: 06/13/17 09:33 Dose: 1 mg Hydromorphone HCl (Dilaudid) 1 mg IVP Q3H PRN PRN Reason: Pain, moderate (4-7) Last Admin: 06/13/17 20:10 Dose: 1 mg Hydroxyurea (Hydrea) 500 mg PO TID [facility] Last Admin: 06/13/17 17:18 Dose: 500 mg Dextrose/Sodium Chloride (Dextrose 5%/0.45% Ns 1000 Ml) 1,000 mls @ 75 mls/hr IV .[id number] [facility] Last Admin: 06/13/17 11:58 Dose: 75 mls/hr Ceftriaxone Sodium 1 gm/ (Sodium Chloride) 100 mls @ 100 mls/hr IVPB Q24H [facility] Last Admin: 06/12/17 22:39 Dose: 100 mls/hr Azithromycin 500 mg/ Sodium (Chloride) 250 mls @ 250 mls/hr IVPB Q24H [facility] Last Admin: 06/12/17 19:28 Dose: 250 mls/hr Pantoprazole Sodium (Protonix Ec Tab) 40 mg PO DAILY [facility] Last Admin: 06/13/17 09:33 Dose: 40 mg - Labs Labs: 06/13/17 08:03 06/13/17 08:03 - Head Exam Head Exam: ATRAUMATIC - Eye Exam Eye Exam: Normal appearance - ENT Exam ENT Exam: Mucous Membranes Dry - Respiratory Exam Respiratory Exam: NORMAL BREATHING PATTERN - Cardiovascular Exam Cardiovascular Exam: +S1, +S2 - GI/Abdominal Exam GI & Abdominal Exam: Normal Bowel Sounds - Extremities Exam Extremities Exam: Normal Inspection Assessment and Plan (1) Sickle cell pain crisis Assessment & Plan: IV fluids, pain meds, 02 via NC, folic acid no indication for transfusion support; pt asymptomatic from anemia Status: Acute (2) Leukocytosis Assessment & Plan: improving with antibiotics Status: Acute (3) Secondary hemochromatosis Assessment & Plan: imaging shows hepatomegaly with likely iron deposition from repeated transfusions minimize transfusion support; currently does not require transfusion outpatient chelation Status: Acute (4) Sickle cell anemia Assessment & Plan: folic acid and hydrea Status: Chronic
[2017-06-13] MEDS: DiphenhydrAMINE 50 mg/ml Inj IVP PRN (23:05)
[2017-06-14] MEDS: DiphenhydrAMINE 50 mg/ml Inj IVP PRN ×3 (02:05→08:11)
[2017-06-14] MEDS: Dextrose 5%/0.45% NS 1,000 ML IV SCH ×2 (03:03→05:09)
[2017-06-14 08:34] VITALS: BP 105/59; PULSE 80; TEMP 98.7; O2SAT 98
[2017-06-14] MEDS: Enoxaparin 40 mg Syringe SC SCH (10:18)
[2017-06-14] MEDS: Pantoprazole 40 mg EC Tab PO SCH (10:19)
== END 2017-06-14 11:30 | disposition home or self-care (01) | DRG 395 ==
LOC: C.ER 12:09 → C.9E 17:45 → OBSVTOIN 17:45 → C.3T 19:14
PROVIDERS: ADMIT Internal Medicine Nephrology; ATTEND Internal Medicine Nephrology
DX: D57.00 Hb-SS disease with crisis, unspecified (principal); D72.829 Elevated white blood cell count, unspecified; E83.119 Hemochromatosis, unspecified; F17.210 Nicotine dependence, cigarettes, uncomplicated; Z87.01 Personal history of pneumonia (recurrent); Z90.49 Acquired absence of other specified parts of digestive tract; Z90.81 Acquired absence of spleen

== ENCOUNTER 2017-06-17 22:44 | Inpatient (IN) | payer MEDICAID ==
[2017-06-17 22:45] VITALS: BMI 24.5
--- NOTE | 2017-06-17 23:56 | C.PDOC ---
History Of Present Illness 31 year old female with PMHx of sickle cell anemia presents to the ED c/o of CP and abdominal pain. Patient states she was d/c from the [facility] on 06/14 where she was evaluated by Dr. Portillo for Hgb 7.1, It was decided to not transfuse her at that time. Patient went to see her PMD, Dr. Mike Louis today who sent her back here for transfusion. Patient is still c/o CP and abdominal pain typical of her sickle cell. Patient denies fever, chills, nausea, vomit, diarrhea, back pain. Time Seen by Provider: 06/17/17 23:43 Chief Complaint (Nursing): Pain, Chronic History Per: Patient History/Exam Limitations: no limitations Onset/Duration Of Symptoms: Hrs Current Symptoms Are (Timing): Gone Reports Recently: Hospitalized (06/15/2017) Recent travel outside of the [place]: No Additional History Per: Patient Past Medical History Reviewed: Historical Data, Nursing Documentation, Vital Signs Vital Signs: Last Vital Signs Temp 98.2 F 06/17/17 23:16 Pulse 92 H 06/17/17 23:16 Resp 20 06/17/17 23:16 BP 118/79 06/17/17 23:16 Pulse Ox 99 06/18/17 00:13 - Medical History PMH: Anemia, Bronchitis, Gall Bladder Disease, Pneumonia, Sickle Cell Disease Denies: Chronic Kidney Disease Surgical History: Cholecystectomy - [facility] Procedures INFLUENZA VACCINATION (03/16/12) INJECT/INFUSE ELECTROLYT (09/07/13) INJECT/INFUSE NEC (01/25/14) INSERT VAD RESERVOIR IN CHEST SUBCU/FASCIA, OPEN (05/31/17) INSERTION OF INFUSION DEV INTO SUP VENA CAVA, PERC APPROACH (01/25/17) NEBULIZER THERAPY (12/02/13) PACKED CELL TRANSFUSION (02/12/15) REMOVAL OF VAD FROM TRUNK SUBCU/FASCIA, OPEN APPROACH (04/15/16) TRANSFUSE NONAUT RED BLOOD CELLS IN PERIPH VEIN, PERC (04/17/17) VACCINATION NEC (08/22/13) Family History: States: Unknown Family Hx - Social History Hx Tobacco Use: No Hx Alcohol Use: No Hx Substance Use: Yes (marijuana) - Immunization History Hx Tetanus Toxoid Vaccination: Yes Hx Influenza Vaccination: Yes (2015) Hx Pneumococcal Vaccination: Yes (2015) Review Of Systems Constitutional: Negative for: Fever, Chills Cardiovascular: Positive for: Chest Pain. Negative for: Palpitations Gastrointestinal: Positive for: Abdominal Pain. Negative for: Nausea, Vomiting Genitourinary: Negative for: Dysuria, Hematuria Musculoskeletal: Negative for: Back Pain Skin: Negative for: Rash Neurological: Negative for: Weakness, Numbness, Headache, Dizziness Physical Exam - Physical Exam Appears: Non-toxic, No Acute Distress Skin: Normal Color, Warm, Dry Head: Atraumatic, Normacephalic Nose: No Discharge Oral Mucosa: Moist Neck: Normal ROM, Supple Chest: Symmetrical Cardiovascular: Rhythm Regular, No Murmur Respiratory: Normal Breath Sounds, No Rales, No Rhonchi, No Wheezing Gastrointestinal/Abdominal: Soft, No Tenderness Extremity: Normal ROM, No Pedal Edema, No Calf Tenderness, No Deformity, No Swelling Neurological/Psych: Oriented x3, Normal Speech, Normal Cognition Gait: Steady ED Course And Treatment O2 Sat by Pulse Oximetry: 99 (On RA) Pulse Ox Interpretation: Normal - Physician Consult Information Time Consulting Physician Contacted: 00:28 Physician Contacted: Enzo Louis Outcome Of Conversation: Patient to be admitted for transfusion. Medical Decision Making Medical Decision Making: Plan: * Dilaudid 16 mg PO * Benadryl 50 mg PO * Reglan 10 mg PO * Given as per sickle cell anemia protocol Contacted Dr. Mike Louis. Disposition - Disposition Disposition: HOSPITALIZED Disposition Time: 00:27 Condition: STABLE - POA Present On Arrival: None - Clinical Impression Clinical Impression: Sickle cell crisis, Chronic pain, Symptomatic anemia - Scribe Statement The provider has reviewed the documentation as recorded by the Scribvalarie Cadena All medical record entries made by the Zacheryibvalarie were at my direction and personally dictated by me. I have reviewed the chart and agree that the record accurately reflects my personal performance of the history, physical exam, medical decision making, and the department course for this patient. I have also personally directed, reviewed, and agree with the discharge instructions and disposition.
[2017-06-18 00:48] LABS: BASO # 0.1 K/uL (0.0-0.2); BASO % 0.8 % (0.0-2.0); EOS # 0.1 K/uL (0.0-0.7); EOS % 0.7 % (0.0-4.0); HEMOGLOBIN 7.7 g/dL (11.0-16.0); LYMPH # 6.5 K/uL (1.0-4.3); LYMPH % 39.3 % (20.0-40.0); MEAN CELL VOLUME 92.8 fL (81.0-99.0); MEAN CORPUSCULAR HEMOGLOBIN 30.9 pg (27.0-31.0); MEAN CORPUSCULAR HGB CONC 33.3 g/dL (33.0-37.0); MEAN PLATELET VOLUME 8.4 fL (7.2-11.7); MONO # 1.9 K/uL (0.0-0.8); MONO % 11.2 % (0.0-10.0); NRBC % 0.5 % (0.0-2.0); RBC 2.5 Mil/uL (3.80-5.20); RED CELL DISTRIBUTION WIDTH 19.1 % (11.5-14.5); WHITE BLOOD COUNT 16.6 K/uL (4.8-10.8)
[2017-06-18 01:10] LABS: ALB/GLOB RATIO 1.2 (1.0-2.1); ALBUMIN 4.1 g/dL (3.5-5.0); ALT/SGPT 108 U/L (9-52); AST/SGOT 54 U/L (14-36); BLOOD UREA NITROGEN 19 mg/dL (7-17); CALCIUM 8.5 mg/dl (8.6-10.4); GFR AFRICAN-AMERICAN > 60; GFR NON-AFRICAN AMERICAN > 60
[2017-06-18 01:34] VITALS: RESP 20
[2017-06-18] MEDS ORDERED: DiphenhydrAMINE 50 mg/ml Inj IVP STA (04:10)
--- NOTE | 2017-06-18 08:24 | CP.PCM.PN ---
Subjective - Date & Time of Evaluation Date of Evaluation: 06/18/17 Time of Evaluation: 08:22 - Subjective Subjective: PGY2 medicine progress note for Dr. Louis Patient seen and examined. Patient complains of severe generalized body pain, denies nausea and vomiting. Patient also complains of weakness. Objective - Vital Signs/Intake and Output Vital Signs (last 24 hours): Temp Pulse Resp BP Pulse Ox 97.9 F 82 20 128/72 96 06/18/17 01:20 06/18/17 01:20 06/18/17 01:20 06/18/17 01:20 06/18/17 01:20 - Medications Medications: Current Medications Enoxaparin Sodium (Lovenox) 40 mg SC DAILY [facility] Folic Acid (Folic Acid) 1 mg PO DAILY [facility] Hydromorphone HCl (Dilaudid) 1 mg IVP Q3 PRN PRN Reason: Pain, severe (8-10) Hydroxyurea (Hydrea) 500 mg PO TID [facility] Sodium Chloride (Sodium Chloride 0.9%) 1,000 mls @ 100 mls/hr IV .Q10H [facility] Pantoprazole Sodium (Protonix Ec Tab) 40 mg PO DAILY [facility] Pneumococcal Polyvalent Vaccine (Pneumovax 23 Vaccine) 0.5 ml IM .ONCE ONE Stop: 06/20/17 10:01 - Labs Labs: 06/18/17 00:40 06/18/17 00:40 - Constitutional Appears: No Acute Distress - Head Exam Head Exam: ATRAUMATIC, NORMOCEPHALIC - Eye Exam Eye Exam: EOMI - ENT Exam ENT Exam: Mucous Membranes Dry - Respiratory Exam Respiratory Exam: Clear to Ausculation Bilateral Additional comments: right chest port - Cardiovascular Exam Cardiovascular Exam: +S1, +S2 - GI/Abdominal Exam GI & Abdominal Exam: Soft, Normal Bowel Sounds. absent: Tenderness - Extremities Exam Extremities Exam: Normal Inspection. absent: Pedal Edema - Neurological Exam Neurological Exam: Alert, Awake, Oriented x3 - Psychiatric Exam Psychiatric exam: Normal Affect - Skin Skin Exam: Warm Assessment and Plan - Assessment and Plan (Free Text) Assessment: Sickle Cell Crisis Dilaudid 1mg IVP Q3H benadryl 25 IVP q3h Folic Acid 1mg PO daily Hydroxyurea 500mg TID D5/ 1/2NS @75ml/hr Anemia Hgb 7.7 will not transfuse at this time starting PO ferrous sulfate 325mg PO daily Leukocytosis WBC 16.6 Possibly a response to sickle cell Continue to monitor Transaminitis AST/ALT: 54/108 Pt has a hx of tranaminitis Hepatitis panel in November 2016 was negative Prophylactic Measure Lovenox 40mg SC Protonix 40mg PO daily All medical management as per Dr. Louis
[2017-06-18] MEDS ORDERED: Sodium Chloride 0.9% 1,000 ML IV SCH (08:30)
[2017-06-18] MEDS: DiphenhydrAMINE 50 mg/ml Inj IVP PRN ×5 (09:11→21:28)
[2017-06-18] MEDS: Enoxaparin 40 mg Syringe SC SCH (09:16)
[2017-06-18] MEDS: Pantoprazole 40 mg EC Tab PO SCH (09:16)
[2017-06-18] MEDS: Dextrose 5%/0.45% NS 1,000 ML IV SCH ×2 (09:18→21:39)
--- NOTE | 2017-06-18 19:16 | CP.PCM.HP ---
Past Patient History - Infectious Disease Hx of Infectious Diseases: None - Tetanus Immunizations Tetanus Immunization: Up to Date - Past Medical History & Family History Past Medical History?: Yes - Past Social History Smoking Status: Current Some Days Smoker - CARDIAC Hx Cardiac Disorders: No - PULMONARY Hx Respiratory Disorders: Yes Hx Bronchitis: Yes Hx Pneumonia: Yes - NEUROLOGICAL Hx Neurological Disorder: No - HEENT Hx HEENT Problems: No - RENAL Hx Chronic Kidney Disease: No - ENDOCRINE/METABOLIC Hx Endocrine Disorders: No - HEMATOLOGICAL/ONCOLOGICAL Hx Blood Disorders: Yes Hx Anemia: Yes Hx Sickle Cell Disease: Yes - INTEGUMENTARY Hx Dermatological Problems: No - MUSCULOSKELETAL/RHEUMATOLOGICAL Hx Musculoskeletal Disorders: No Hx Falls: No - GASTROINTESTINAL Hx Gastrointestinal Disorders: Yes Hx Gall Bladder Disease: Yes - GENITOURINARY/GYNECOLOGICAL Hx Genitourinary Disorders: No - PSYCHIATRIC Hx Psychophysiologic Disorder: Yes Hx Substance Use: Yes (marijuana) - SURGICAL HISTORY Hx Surgeries: Yes Hx Cholecystectomy: Yes Hx Vascular Access Device: Yes (06/01/17) Other/Comment: Rt.subclavian keyana cath - ANESTHESIA Hx Anesthesia: Yes Hx Anesthesia Reactions: No Hx Malignant Hyperthermia: No Meds Allergies/Adverse Reactions: Allergies Allergy/AdvReac Type Severity Reaction Status Date / Time FISH Allergy Severe RASH Verified 06/17/17 23:19 oxycodone Allergy Severe RASH Verified 06/17/17 23:19 tramadol Allergy Severe RASH Verified 06/17/17 23:19 ketorolac Allergy Intermediate RASH Verified 06/17/17 23:19 Physical Exam - Constitutional Appears: Well - Head Exam Head Exam: ATRAUMATIC, NORMAL INSPECTION, NORMOCEPHALIC - Eye Exam Eye Exam: EOMI, Normal appearance, PERRL Pupil Exam: NORMAL ACCOMODATION, PERRL - ENT Exam ENT Exam: Mucous Membranes Moist, Normal Exam - Neck Exam Neck exam: Positive for: Normal Inspection - Respiratory Exam Respiratory Exam: Decreased Breath Sounds - Cardiovascular Exam Cardiovascular Exam: REGULAR RHYTHM, +S1, +S2 - GI/Abdominal Exam GI & Abdominal Exam: Diminished Bowel Sounds, Soft - Rectal Exam Rectal Exam: Deferred Results - Vital Signs Recent Vital Signs: Last Vital Signs Temp 98.8 F 06/18/17 16:00 Pulse 86 06/18/17 16:00 Resp 20 06/18/17 16:00 BP 118/75 06/18/17 16:00 Pulse Ox 98 06/18/17 16:00 - Labs Result Diagrams: 06/18/17 00:40 06/18/17 00:40 Labs: Laboratory Results - last 24 hr 06/18/17 06/18/17 06/18/17 00:28 00:40 00:40 WBC 16.6 H RBC 2.50 L Hgb 7.7 L Hct 23.2 L MCV 92.8 MCH 30.9 MCHC 33.3 RDW 19.1 H Plt Count 335 MPV 8.4 Neut % (Auto) 48.0 L Lymph % (Auto) 39.3 Davis % (Auto) 11.2 H Eos % (Auto) 0.7 Baso % (Auto) 0.8 Neut # 8.0 H Lymph # 6.5 H Davis # 1.9 H Eos # 0.1 Baso # 0.1 Sodium 137 Potassium 3.6 Chloride 105 Carbon Dioxide 24 Anion Gap 12 BUN 19 H Creatinine 0.5 L Est GFR ( Amer) > 60 Est GFR (Non-Af Amer) > 60 Random Glucose 99 Calcium 8.5 L Total Bilirubin 1.5 H AST 54 H D ALT 108 H D Alkaline Phosphatase 161 H Total Protein 7.5 Albumin 4.1 Globulin 3.4 Albumin/Globulin Ratio 1.2 Blood Type A POSITIVE Antibody Screen Negative
[2017-06-19] MEDS: DiphenhydrAMINE 50 mg/ml Inj IVP PRN ×3 (00:31→08:07)
[2017-06-19 08:09] VITALS: BP 105/67; PULSE 75; TEMP 97.7; O2SAT 95
[2017-06-19 08:30] LABS: BASO # 0.1 K/uL (0.0-0.2); BASO % 0.7 % (0.0-2.0); EOS # 0.4 K/uL (0.0-0.7); EOS % 2.5 % (0.0-4.0); HEMOGLOBIN 7.3 g/dL (11.0-16.0); LYMPH # 7.9 K/uL (1.0-4.3); LYMPH % 44.9 % (20.0-40.0); MEAN CELL VOLUME 90.9 fL (81.0-99.0); MEAN CORPUSCULAR HEMOGLOBIN 31.5 pg (27.0-31.0); MEAN CORPUSCULAR HGB CONC 34.7 g/dL (33.0-37.0); MEAN PLATELET VOLUME 8.1 fL (7.2-11.7); MONO # 1.9 K/uL (0.0-0.8); MONO % 10.6 % (0.0-10.0); NEUT # 7.2 K/uL (1.8-7.0); NEUT % 41.3 % (50.0-75.0); NRBC % 0.4 % (0.0-2.0); RBC 2.32 Mil/uL (3.80-5.20); RED CELL DISTRIBUTION WIDTH 18.3 % (11.5-14.5); WHITE BLOOD COUNT 17.5 K/uL (4.8-10.8)
[2017-06-19 08:57] LABS: ALBUMIN 3.4 g/dL (3.5-5.0); ALT/SGPT 95 U/L (9-52); AST/SGOT 65 U/L (14-36); CALCIUM 7.7 mg/dl (8.6-10.4); GFR AFRICAN-AMERICAN > 60; GFR NON-AFRICAN AMERICAN > 60
[2017-06-19 09:13] LABS: BLOOD UREA NITROGEN 13 mg/dL (7-17)
[2017-06-19] MEDS: Enoxaparin 40 mg Syringe SC SCH (09:25)
[2017-06-19] MEDS: Pantoprazole 40 mg EC Tab PO SCH (09:25)
--- NOTE | 2017-06-19 10:41 | CP.PCM.PN ---
Subjective - Date & Time of Evaluation Date of Evaluation: 06/19/17 Time of Evaluation: 10:37 - Subjective Subjective: PGY2 medicine progress note for Dr. Louis Patient seen and examined. Patient states she feels much better as compared to day of admission. Patient states she feels well enough to go home. Objective - Vital Signs/Intake and Output Vital Signs (last 24 hours): Temp Pulse Resp BP Pulse Ox 97.7 F 75 20 105/67 95 06/19/17 08:08 06/19/17 08:08 06/19/17 08:08 06/19/17 08:08 06/19/17 08:08 Intake and Output: 06/19/17 06/19/17 06:59 18:59 Intake Total 960 Balance 960 - Medications Medications: Current Medications Acetaminophen (Tylenol 325mg Tab) 650 mg PO Q6 PRN PRN Reason: Fever >100.4 F Diphenhydramine HCl (Benadryl) 25 mg IVP Q3H PRN PRN Reason: Itching / Pruritus Last Admin: 06/19/17 08:07 Dose: 25 mg Enoxaparin Sodium (Lovenox) 40 mg SC DAILY [facility] Last Admin: 06/19/17 09:25 Dose: 40 mg Ferrous Sulfate (Feosol) 325 mg PO DAILY [facility] Last Admin: 06/19/17 09:24 Dose: 325 mg Folic Acid (Folic Acid) 1 mg PO DAILY [facility] Last Admin: 06/19/17 09:25 Dose: 1 mg Hydromorphone HCl (Dilaudid) 1 mg IVP Q3 PRN PRN Reason: Pain, severe (8-10) Last Admin: 06/19/17 08:08 Dose: 1 mg Hydroxyurea (Hydrea) 500 mg PO TID [facility] Last Admin: 06/19/17 09:25 Dose: 500 mg Dextrose/Sodium Chloride (Dextrose 5%/0.45% Ns 1000 Ml) 1,000 mls @ 75 mls/hr IV .[id number] [facility] Last Admin: 06/18/17 21:39 Dose: 75 mls/hr Pantoprazole Sodium (Protonix Ec Tab) 40 mg PO DAILY [facility] Last Admin: 06/19/17 09:25 Dose: 40 mg Pneumococcal Polyvalent Vaccine (Pneumovax 23 Vaccine) 0.5 ml IM .ONCE ONE Stop: 06/20/17 10:01 - Labs Labs: 06/19/17 08:18 06/19/17 08:18 - Constitutional Appears: No Acute Distress - Head Exam Head Exam: ATRAUMATIC, NORMOCEPHALIC - Eye Exam Eye Exam: EOMI - ENT Exam ENT Exam: Mucous Membranes Moist - Respiratory Exam Respiratory Exam: Clear to Ausculation Bilateral, NORMAL BREATHING PATTERN - Cardiovascular Exam Cardiovascular Exam: +S1, +S2 Additional comments: right chest port - GI/Abdominal Exam GI & Abdominal Exam: Soft, Normal Bowel Sounds - Extremities Exam Extremities Exam: Normal Inspection. absent: Pedal Edema - Neurological Exam Neurological Exam: Alert, Awake - Psychiatric Exam Psychiatric exam: Normal Affect - Skin Skin Exam: Warm Assessment and Plan - Assessment and Plan (Free Text) Assessment: Sickle Cell Crisis Dilaudid 1mg IVP Q3H benadryl 25 IVP q3h Folic Acid 1mg PO daily Hydroxyurea 500mg TID D5/ 1/2NS @75ml/hr Anemia Hgb 7.7 will not transfuse at this time starting PO ferrous sulfate 325mg PO daily Leukocytosis WBC 17.5 Possibly a response to sickle cell Transaminitis AST/ALT: 65/95 Pt has a hx of tranaminitis Hepatitis panel in November 2016 was negative Prophylactic Measure Lovenox 40mg SC Protonix 40mg PO daily All medical management as per Dr. Louis Patient is stable for discharge home per Dr. Louis. Patient is to follow up with Dr. Louis within one week of discharge. Patient is to continue home medications Hydrea 500mg PO TID and Folic acid 1mg PO daily. Patient is to return to ED if symptoms reoccur or worsen. This was explained to the patient who understands and agrees.
[2017-06-20] MEDS ORDERED: Influenza Vaccine 60 mcg/0.5 mL SYR (4YR UP) IM ONE (10:00)
[2017-06-20] MEDS ORDERED: Pneumococcal 23-Valent Vaccine IM ONE (10:00)
== END 2017-06-19 11:16 | disposition home or self-care (01) | DRG 395 ==
LOC: C.ER 22:44 → C.3T 06-18 00:34
PROVIDERS: ADMIT Internal Medicine Nephrology; ATTEND Internal Medicine Nephrology
DX: D57.00 Hb-SS disease with crisis, unspecified (principal); D72.829 Elevated white blood cell count, unspecified; F17.200 Nicotine dependence, unspecified, uncomplicated; G89.29 Other chronic pain; Z87.01 Personal history of pneumonia (recurrent); R74.0 Nonspecific elevation of levels of transaminase and lactic acid dehydrogenase [LDH]

== ENCOUNTER 2017-06-23 15:37 | Inpatient (IN) | payer MEDICAID ==
[2017-06-23 15:38] VITALS: BMI 24.5
--- NOTE | 2017-06-23 19:35 | C.PDOC ---
History Of Present Illness 31 y/o Female with Hx of port a cath complaints of experiencing abdominal pain twice since her last admission on Thursday. She states the pain is intermittent. She also c/o her usual sickle cell pain and says she has this same abdominal pain occasionally. Associated symptoms are dysuria, cough with clear phlegm, weak, and fatigue. Denies taking pain medications at home, appetite changes, fever, or vomiting. She states she would like to check her blood count since last time checked it was 7.2. Time Seen by Provider: 06/23/17 19:06 Chief Complaint (Nursing): Abdominal Pain History Per: Patient History/Exam Limitations: no limitations Onset/Duration Of Symptoms: Days Current Symptoms Are (Timing): Still Present Severity: None Radiation Of Pain To:: None Quality Of Discomfort: Unable To Describe Associated Symptoms: denies: Fever, Chills, Nausea, Vomiting, Chest Pain Exacerbating Factors: None Alleviating Factors: None Recent travel outside of the [place]: No Past Medical History Reviewed: Historical Data, Nursing Documentation, Vital Signs Vital Signs: Last Vital Signs Temp 97.9 F 06/24/17 00:01 Pulse 83 06/24/17 00:01 Resp 18 06/24/17 00:01 BP 111/71 06/23/17 21:06 Pulse Ox 97 06/24/17 00:01 - Medical History PMH: Anemia, Bronchitis, Gall Bladder Disease, Pneumonia, Sickle Cell Disease Surgical History: Cholecystectomy - [facility] Procedures INFLUENZA VACCINATION (03/16/12) INJECT/INFUSE ELECTROLYT (09/07/13) INJECT/INFUSE NEC (01/25/14) INSERT VAD RESERVOIR IN CHEST SUBCU/FASCIA, OPEN (05/31/17) INSERTION OF INFUSION DEV INTO SUP VENA CAVA, PERC APPROACH (01/25/17) NEBULIZER THERAPY (12/02/13) PACKED CELL TRANSFUSION (02/12/15) REMOVAL OF VAD FROM TRUNK SUBCU/FASCIA, OPEN APPROACH (04/15/16) TRANSFUSE NONAUT RED BLOOD CELLS IN PERIPH VEIN, PERC (04/17/17) VACCINATION NEC (08/22/13) Family History: States: Unknown Family Hx Other Family History: nc - Social History Hx Tobacco Use: No Hx Alcohol Use: No Hx Substance Use: Yes - Immunization History Hx Tetanus Toxoid Vaccination: Yes Hx Influenza Vaccination: Yes (2017) Hx Pneumococcal Vaccination: Yes (2015) Review Of Systems Constitutional: Positive for: Weakness, Other (Fatigue). Negative for: Fever Cardiovascular: Negative for: Chest Pain, Palpitations Respiratory: Positive for: Cough (Clear phlegm). Negative for: Shortness of Breath, Hemoptysis Gastrointestinal: Positive for: Abdominal Pain. Negative for: Nausea, Vomiting , Diarrhea Genitourinary: Positive for: Dysuria Musculoskeletal: Positive for: Other Neurological: Negative for: Weakness, Numbness Physical Exam - Physical Exam Appears: Well, Non-toxic Skin: Warm, Dry Head: Atraumatic Eye(s): bilateral: PERRL Oral Mucosa: Moist Chest: Symmetrical, No Tenderness, Other (Port a cath right chest wall with no erythema) Cardiovascular: Rhythm Regular Respiratory: No Decreased Breath Sounds, No Accessory Muscle Use, No Rales, No Rhonchi, No Stridor, No Wheezing Gastrointestinal/Abdominal: Soft, No Tenderness, No Distention, No Guarding, No Rebound Neurological/Psych: Oriented x3, Other (No focal deficits) ED Course And Treatment - Laboratory Results Result Diagrams: 06/23/17 20:02 06/23/17 20:02 O2 Sat by Pulse Oximetry: 99 (Room air) Pulse Ox Interpretation: Normal - CT Scan/US CT Abdomen/Pelvis Other Rad Studies (CT/US): Read By Radiologist, Radiology Report Reviewed CT/US Interpretation: EXAM: CT Abdomen and Pelvis With Intravenous Contrast. EXAM DATE/TIME: 06/23/2017 9:08 PM. CLINICAL HISTORY: 31 years old, female; Pain; Abdominal pain; Generalized; sickle cell disease. TECHNIQUE: Axial computed tomography images of the abdomen and pelvis with intravenous contrast. All CT. scans at this facility use one or more dose reduction techniques, viz. : automated exposure control;. ma/kV adjustment per patient size (including targeted exams where dose is matched to indication; i.e. head); or iterative reconstruction technique. Coronal and sagittal reformatted images were created and reviewed. CONTRAST: 100 mL of visipaque 320 administered intravenously. COMPARISON: Prior images are not available for review. FINDINGS: Lower thorax : The heart is mildly enlarged. There is asymmetric groundglass airspace disease in the. lung bases. There is minimal linear scarring at both lung bases. There are no effusions. ABDOMEN: [facility]. [facility] Radiology [facility]. Final Radiology Report [id number]. Name: IMELDA SANTIAGO Age: 31Years F Date: 06/23/2017. SSN: [id number] : 1985. Study: CT ABDOMEN/PELVIS W Requesting Physician: Juan Mcgovern. Images: [id number]. Addl Studies: Provided Clinical History: abdominal pain. CONFIDENTIALITY STATEMENT. This transmission is confidential and is intended to be a privileged communication. It is intended only for the use of the addressee. Access to this. message by anyone else is unauthorized. If you are not the intended recipient, any disclosure, copying, distribution or any action taken, or omitted to. be taken in reliance on it is prohibited and may be unlawful. If you received this communication in error, please notify us by telephone, so that return. of this document to us can be arranged. Page 2 of 3. Liver: The liver is enlarged. There is a 1.5 cm low attenuation hepatic lesion in the region of the. keyana hepatis, not a simple cyst by CT criteria. Gallbladder and bile ducts: Gallbladder is absent. There is prominence of the common duct. There is. minimal intrahepatic biliary ductal prominence. Pancreas: unremarkable. Spleen: Spleen is absent. There are multiple clips in the left upper quadrant. Adrenals: Adrenals are unremarkable. Kidneys and ureters: Left kidney is in the flank. Right kidney is in the upper pelvis.There is no. pelvocaliectasis or ureterectasis. Stomach and bowel: Stomach is partially distended. Rotation is normal. Small bowel is mildly. distended with fluid and air. There is no obstruction. Cecum is low in the pelvis. Terminal ileum is. unremarkable. Appendix is not visualized. There is no pericecal inflammation. There is moderate. stool in the right colon. Transverse and left colon are collapsed. Appendix: See stomach and bowel. PELVIS: Bladder: unremarkable. Reproductive: Uterus and adnexal structures are unremarkable. ABDOMEN and PELVIS: Intraperitoneal space: There are surgical clips in the left adnexa.There is no significant fluid.There is. no free air. Bones/joints : There is a bone island in the right ilium. There are small sclerotic lesions in the left. ilium suggesting bone islands.There is a small fat containing umbilical hernia. Soft tissues: See above. Vasculature: Vascular structures are unremarkable. Lymph nodes: There is no pathologic adenopathy. Tubes, lines and devices: There is free artifact from a catheter tip. [facility]. [facility] Radiology [facility]. Final Radiology Report [id number]. Name: IMELDA SANTIAGO Age: 31Years F Date: 06/23/2017. : 1985. Study: CT ABDOMEN/PELVIS W Requesting Physician: Juan Mcgovern. Images: 509. Addl Studies: Provided Clinical History: abdominal pain. CONFIDENTIALITY STATEMENT. This transmission is confidential and is intended to be a privileged communication. It is intended only for the use of the addressee. Access to this. message by anyone else is unauthorized. If you are not the intended recipient, any disclosure, copying, distribution or any action taken, or omitted to. be taken in reliance on it is prohibited and may be unlawful. If you received this communication in error, please notify us by telephone, so that return. of this document to us can be arranged. Page 3 of 3. IMPRESSION: Hepatomegaly; splenectomy; prominent ducts status post cholecystectomy; right. pelvic kidney ; mild cardiomegaly; no bowel obstruction. Thank you for allowing us to participate in the care of your patient. Dictated and Authenticated by: Erica Santizo MD. 06/23/2017 11:25 PM Eastern Time ([place] & [place]) Medical Decision Making Medical Decision Making: x-ray: no acute findings Disposition - Disposition Disposition: HOSPITALIZED Disposition Time: 23:40 Condition: STABLE - Clinical Impression Clinical Impression: Sickle-cell disease with pain - Scribe Statement The provider has reviewed the documentation as recorded by the Zacheryibvalarie Beckham All medical record entries made by the Zacheryibvalarie were at my direction and personally dictated by me. I have reviewed the chart and agree that the record accurately reflects my personal performance of the history, physical exam, medical decision making, and the department course for this patient. I have also personally directed, reviewed, and agree with the discharge instructions and disposition.
[2017-06-23 20:13] LABS: BASO # 0.1 K/uL (0.0-0.2); BASO % 0.6 % (0.0-2.0); EOS # 0.2 K/uL (0.0-0.7); EOS % 0.9 % (0.0-4.0); HEMOGLOBIN 7.3 g/dL (11.0-16.0); LYMPH # 8.9 K/uL (1.0-4.3); LYMPH % 38.9 % (20.0-40.0); MEAN CELL VOLUME 94.1 fL (81.0-99.0); MEAN CORPUSCULAR HEMOGLOBIN 31.5 pg (27.0-31.0); MEAN CORPUSCULAR HGB CONC 33.4 g/dL (33.0-37.0); MEAN PLATELET VOLUME 8.4 fL (7.2-11.7); MONO # 1.6 K/uL (0.0-0.8); MONO % 7.2 % (0.0-10.0); NEUT # 11.9 K/uL (1.8-7.0); NEUT % 52.4 % (50.0-75.0); NRBC % 0.2 % (0.0-2.0); RBC 2.31 Mil/uL (3.80-5.20); RED CELL DISTRIBUTION WIDTH 22.1 % (11.5-14.5); WHITE BLOOD COUNT 22.8 K/uL (4.8-10.8)
[2017-06-23 20:24] LABS: SQUAMOUS EPITHIAL 1 /hpf (0-5); URINE BACTERIA RARE (<OCC); URINE BILIRUBIN NEGATIVE (NEGATIVE); URINE BLOOD NEGATIVE (NEGATIVE); URINE CLARITY Clear (Clear); URINE COLOR Yellow (YELLOW); URINE GLUCOSE (UA) NORMAL (Normal); URINE LEUKOCYTE ESTERASE TRACE Leu/uL (Negative); URINE NITRATE NEGATIVE (NEGATIVE); URINE PROTEIN NEGATIVE (NEGATIVE); URINE UROBILINOGEN NORMAL mg/dL (0.2-1.0)
[2017-06-23 20:25] LABS: ALB/GLOB RATIO 1.3 (1.0-2.1); ALBUMIN 3.9 g/dL (3.5-5.0); ALT/SGPT 74 U/L (9-52); AST/SGOT 45 U/L (14-36); BLOOD UREA NITROGEN 14 mg/dL (7-17); GFR AFRICAN-AMERICAN > 60; GFR NON-AFRICAN AMERICAN > 60; LIPASE 114 U/L (23-300)
[2017-06-23 20:26] LABS: HCG,QUALITATIVE URINE NEGATIVE (NEGATIVE)
[2017-06-23] MEDS ORDERED: Iodixanol 320 MG/ML 100 ML BOTTLE IV ONE (21:51)
--- NOTE | 2017-06-23 23:25 | CT ---
EXAM: CT Abdomen and Pelvis With Intravenous Contrast EXAM DATE/TIME: 06/23/2017 9:08 PM CLINICAL HISTORY: 31 years old, female; Pain; Abdominal pain; Generalized; sickle cell disease TECHNIQUE: Axial computed tomography images of the abdomen and pelvis with intravenous contrast. All CT scans at this facility use one or more dose reduction techniques, viz.: automated exposure control; ma/kV adjustment per patient size (including targeted exams where dose is matched to indication; i.e. head); or iterative reconstruction technique. Coronal and sagittal reformatted images were created and reviewed. CONTRAST: 100 mL of visipaque 320 administered intravenously. COMPARISON: Prior images are not available for review. FINDINGS: Lower thorax: The heart is mildly enlarged. There is asymmetric groundglass airspace disease in the lung bases. There is minimal linear scarring at both lung bases. There are no effusions ABDOMEN: Liver: The liver is enlarged. There is a 1.5 cm low attenuation hepatic lesion in the region of the keyana hepatis, not a simple cyst by CT criteria Gallbladder and bile ducts: Gallbladder is absent. There is prominence of the common duct. There is minimal intrahepatic biliary ductal prominence. Pancreas: unremarkable Spleen: Spleen is absent. There are multiple clips in the left upper quadrant. Adrenals: Adrenals are unremarkable. Kidneys and ureters: Left kidney is in the flank. Right kidney is in the upper pelvis.There is no pelvocaliectasis or ureterectasis. Stomach and bowel: Stomach is partially distended. Rotation is normal. Small bowel is mildly distended with fluid and air. There is no obstruction. Cecum is low in the pelvis. Terminal ileum is unremarkable. Appendix is not visualized. There is no pericecal inflammation. There is moderate stool in the right colon. Transverse and left colon are collapsed. Appendix: See stomach and bowel PELVIS: Bladder: unremarkable Reproductive: Uterus and adnexal structures are unremarkable. ABDOMEN and PELVIS: Intraperitoneal space: There are surgical clips in the left adnexa.There is no significant fluid.There is no free air. Bones/joints: There is a bone island in the right ilium. There are small sclerotic lesions in the left ilium suggesting bone islands.There is a small fat containing umbilical hernia. Soft tissues: See above. Vasculature: Vascular structures are unremarkable. Lymph nodes: There is no pathologic adenopathy. Tubes, lines and devices: There is free artifact from a catheter tip. IMPRESSION: Hepatomegaly; splenectomy; prominent ducts status post cholecystectomy; right pelvic kidney; mild cardiomegaly; no bowel obstruction
[2017-06-24] MEDS ORDERED: HYDROmorphone 1 mg/ml ISec IVP PRN ×2 (00:42→00:54)
[2017-06-24] MEDS ORDERED: Sodium Chloride 0.9% 1,000 ML IV ONE (00:47)
[2017-06-24] MEDS: Sodium Chloride 0.45% 1,000 ML IV SCH ×6 (01:30→23:11)
[2017-06-24 08:29] VITALS: RESP 20
--- NOTE | 2017-06-24 10:26 | RAD ---
HISTORY: cough COMPARISON: Chest x-ray performed 06/01/17 TECHNIQUE: Chest PA and lateral FINDINGS: Right-sided MediPort extends expected location of the cavoatrial junction. LUNGS: Right hilar prominence. No focal consolidation. Please note that chest x-ray has limited sensitivity for the detection of pulmonary masses. PLEURA: No significant pleural effusion identified. No definite pneumothorax . CARDIOVASCULAR: The cardiomediastinal silhouette appears within normal limits of size. OSSEOUS STRUCTURES: No acute osseous abnormality identified. VISUALIZED UPPER ABDOMEN: Unremarkable. OTHER FINDINGS: None. IMPRESSION: Right-sided MediPort. Right hilar prominence.
[2017-06-24] MEDS: Enoxaparin 40 mg Syringe SC SCH (10:48)
[2017-06-24] MEDS: DiphenhydrAMINE 50 mg/ml Inj IVP PRN ×4 (14:10→23:10)
--- NOTE | 2017-06-24 16:59 | CP.PCM.HP ---
Past Patient History - Infectious Disease Hx of Infectious Diseases: None - Tetanus Immunizations Tetanus Immunization: Up to Date - Past Medical History & Family History Past Medical History?: Yes - Past Social History Smoking Status: Current Some Days Smoker - PULMONARY Hx Bronchitis: Yes Hx Pneumonia: Yes - HEENT Hx HEENT Problems: No - HEMATOLOGICAL/ONCOLOGICAL Hx Anemia: Yes Hx Sickle Cell Disease: Yes - INTEGUMENTARY Hx Dermatological Problems: No - GASTROINTESTINAL Hx Gall Bladder Disease: Yes - PSYCHIATRIC Hx Substance Use: Yes - SURGICAL HISTORY Hx Cholecystectomy: Yes - ANESTHESIA Hx Anesthesia: Yes Hx Anesthesia Reactions: No Hx Malignant Hyperthermia: No Meds Allergies/Adverse Reactions: Allergies Allergy/AdvReac Type Severity Reaction Status Date / Time FISH Allergy Severe RASH Verified 06/23/17 16:48 oxycodone Allergy Severe RASH Verified 06/23/17 16:48 tramadol Allergy Severe RASH Verified 06/23/17 16:48 ketorolac Allergy Intermediate RASH Verified 06/23/17 16:48 Results - Vital Signs Recent Vital Signs: Last Vital Signs Temp 98.0 F 06/24/17 16:00 Pulse 79 06/24/17 16:00 Resp 20 06/24/17 16:00 BP 107/69 06/24/17 16:00 Pulse Ox 95 06/24/17 16:00 - Labs Result Diagrams: 06/23/17 20:02 06/23/17 20:02 Labs: Laboratory Results - last 24 hr 06/23/17 06/23/17 06/23/17 20:02 20:02 20:02 WBC 22.8 H RBC 2.31 L Hgb 7.3 L Hct 21.7 L MCV 94.1 D MCH 31.5 H MCHC 33.4 RDW 22.1 H Plt Count 305 MPV 8.4 Neut % (Auto) 52.4 Lymph % (Auto) 38.9 Tucker % (Auto) 7.2 Eos % (Auto) 0.9 Baso % (Auto) 0.6 Neut # 11.9 H Lymph # 8.9 H Tucker # 1.6 H Eos # 0.2 Baso # 0.1 Retic Count 15.9 H D Sodium 136 Potassium 3.9 Chloride 104 Carbon Dioxide 25 Anion Gap 10 BUN 14 Creatinine 0.4 L Est GFR ( Amer) > 60 Est GFR (Non-Af Amer) > 60 Random Glucose 84 Calcium 8.0 L Total Bilirubin 1.9 H AST 45 H D ALT 74 H D Alkaline Phosphatase 104 Total Protein 7.0 Albumin 3.9 Globulin 3.1 Albumin/Globulin Ratio 1.3 Lipase 114 Urine Color Yellow Urine Clarity Clear Urine pH 6.0 Ur Specific [place] 1.012 Urine Protein Negative Urine Glucose (UA) Normal Urine Ketones Negative Urine Blood Negative Urine Nitrate Negative Urine Bilirubin Negative Urine Urobilinogen Normal Ur Leukocyte Esterase Trace Urine WBC (Auto) 5 Ur Squamous Epith Cells 1 Urine Bacteria Rare Urine HCG, Qual Negative
--- NOTE | 2017-06-24 21:44 | CP.PCM.CON ---
History of Present Illness - History of Present Illness History of Present Illness: 31 year old female with a history of sickle cell anemia admitted with sickle cell pain crisis. The patient reports to abdominal discomfort with nausea and vomiting which exacerbated her sickle pain. She reports her pain began in her lower chest and upper abdomen. This began to worsen and was not alleviated by by oral narcotics which prompted her to seek care in the ER. In the ER she continued to have pain despite pain medication and was admitted for further pain control. She denies fevers, chills, headache, shortness of breath , and chest pain. Her pain is diffuse in nature and consistent with prior sickle cell pain crisis. Past medical history: Sickle cell anemia. Past surgical history: Cholecystectomy, splenectomy, portacatheter placement. Family history: Father and sister has SS disease, mother and brother have sickle cell trait. Social history: Denies tobacco, alcohol, and illicit drug use. Allergies: Oxycodone, ketorolac. Review of systems: All remaining review of systems including HEENT, cardiovascular, respiratory, gastrointestinal, genitourinary, musculoskeletal, dermatologic, and neurologic are negative unless mentioned in the HPI. Past Patient History - Infectious Disease Hx of Infectious Diseases: None - Tetanus Immunizations Tetanus Immunization: Up to Date - Past Medical History & Family History Past Medical History?: Yes - Past Social History Smoking Status: Current Some Days Smoker - PULMONARY Hx Bronchitis: Yes Hx Pneumonia: Yes - HEENT Hx HEENT Problems: No - HEMATOLOGICAL/ONCOLOGICAL Hx Anemia: Yes Hx Sickle Cell Disease: Yes - INTEGUMENTARY Hx Dermatological Problems: No - GASTROINTESTINAL Hx Gall Bladder Disease: Yes - PSYCHIATRIC Hx Substance Use: Yes - SURGICAL HISTORY Hx Cholecystectomy: Yes - ANESTHESIA Hx Anesthesia: Yes Hx Anesthesia Reactions: No Hx Malignant Hyperthermia: No Meds Allergies/Adverse Reactions: Allergies Allergy/AdvReac Type Severity Reaction Status Date / Time FISH Allergy Severe RASH Verified 06/23/17 16:48 oxycodone Allergy Severe RASH Verified 06/23/17 16:48 tramadol Allergy Severe RASH Verified 06/23/17 16:48 ketorolac Allergy Intermediate RASH Verified 06/23/17 16:48 - Medications Medications: Current Medications Diphenhydramine HCl (Benadryl) 25 mg IVP Q3 PRN PRN Reason: Itching / Pruritus Last Admin: 06/24/17 20:10 Dose: 25 mg Enoxaparin Sodium (Lovenox) 40 mg SC DAILY [facility] Last Admin: 06/24/17 10:48 Dose: 40 mg Folic Acid (Folic Acid) 1 mg PO DAILY [facility] Last Admin: 06/24/17 10:48 Dose: 1 mg Hydromorphone HCl (Dilaudid) 2 mg IVP Q3H PRN PRN Reason: Pain, severe (8-10) Last Admin: 06/24/17 20:14 Dose: 2 mg Hydroxyurea (Hydrea) 500 mg PO TID [facility] Last Admin: 06/24/17 17:11 Dose: 500 mg Sodium Chloride (Sodium Chloride 0.45%) 1,000 mls @ 150 mls/hr IV .Q6H40M [facility] Last Admin: 06/24/17 20:11 Dose: 150 mls/hr Ondansetron HCl (Zofran Inj) 4 mg IVP Q6 PRN PRN Reason: Nausea/Vomiting Last Admin: 06/24/17 14:10 Dose: 4 mg Physical Exam - Head Exam Head Exam: ATRAUMATIC - Eye Exam Eye Exam: Normal appearance - ENT Exam ENT Exam: Mucous Membranes Dry - Respiratory Exam Respiratory Exam: NORMAL BREATHING PATTERN - Cardiovascular Exam Cardiovascular Exam: +S1, +S2 - GI/Abdominal Exam GI & Abdominal Exam: Normal Bowel Sounds - Extremities Exam Extremities exam: Positive for: normal inspection - Neurological Exam Neurological exam: Oriented x3 - Psychiatric Exam Psychiatric exam: Normal Affect, Normal Mood - Skin Skin Exam: Warm Results - Vital Signs Recent Vital Signs: Last Vital Signs Temp 98.0 F 06/24/17 16:00 Pulse 79 06/24/17 16:00 Resp 20 06/24/17 16:00 BP 107/69 06/24/17 16:00 Pulse Ox 95 06/24/17 18:31 - Labs Result Diagrams: 06/23/17 20:02 06/23/17 20:02 Assessment & Plan (1) Sickle cell pain crisis Assessment and Plan: IV fluids, pain meds, folic acid, 02 via NC no current transfusion indication Status: Acute (2) Leukocytosis Assessment and Plan: may be reactive to sickle cell Status: Acute (3) Secondary hemochromatosis Assessment and Plan: outpatient chelation minimize transfusion support Status: Acute (4) Sickle cell anemia Assessment and Plan: folic acid and hydrea Thank you for this interesting consult. Status: Chronic
[2017-06-25] MEDS: DiphenhydrAMINE 50 mg/ml Inj IVP PRN ×7 (02:27→22:36)
[2017-06-25] MEDS: Sodium Chloride 0.45% 1,000 ML IV SCH ×4 (03:06→17:55)
[2017-06-25] MEDS: Enoxaparin 40 mg Syringe SC SCH (10:05)
[2017-06-25 13:59] LABS: BASO # 0.1 K/uL (0.0-0.2); BASO % 0.5 % (0.0-2.0); EOS # 0.3 K/uL (0.0-0.7); EOS % 1.7 % (0.0-4.0); HEMOGLOBIN 6.7 g/dL (11.0-16.0); LYMPH # 6.9 K/uL (1.0-4.3); LYMPH % 40.4 % (20.0-40.0); MEAN CELL VOLUME 91.5 fL (81.0-99.0); MEAN CORPUSCULAR HEMOGLOBIN 30.6 pg (27.0-31.0); MEAN CORPUSCULAR HGB CONC 33.5 g/dL (33.0-37.0); MEAN PLATELET VOLUME 8.1 fL (7.2-11.7); MONO # 1.3 K/uL (0.0-0.8); MONO % 7.7 % (0.0-10.0); NEUT # 8.5 K/uL (1.8-7.0); NEUT % 49.7 % (50.0-75.0); NRBC % 0.4 % (0.0-2.0); RBC 2.18 Mil/uL (3.80-5.20); RED CELL DISTRIBUTION WIDTH 17.9 % (11.5-14.5); WHITE BLOOD COUNT 17.1 K/uL (4.8-10.8)
[2017-06-25 14:14] LABS: ALB/GLOB RATIO 1.2 (1.0-2.1); ALBUMIN 3.6 g/dL (3.5-5.0); ALT/SGPT 71 U/L (9-52); AST/SGOT 48 U/L (14-36); BLOOD UREA NITROGEN 7 mg/dL (7-17); CALCIUM 7.8 mg/dl (8.6-10.4); GFR AFRICAN-AMERICAN > 60; GFR NON-AFRICAN AMERICAN > 60
--- NOTE | 2017-06-25 15:11 | CP.PCM.PN ---
Subjective - Date & Time of Evaluation Date of Evaluation: 06/25/17 Time of Evaluation: 15:09 - Subjective Subjective: PT SEEN AND EXAMINED BY DR. KYLE TODAY Objective - Vital Signs/Intake and Output Vital Signs (last 24 hours): Temp Pulse Resp BP Pulse Ox 98.9 F 76 20 98/57 L 96 06/25/17 08:02 06/25/17 08:02 06/25/17 08:02 06/25/17 08:02 06/25/17 08:02 Intake and Output: 06/25/17 06/25/17 06:59 18:59 Intake Total 1700 1680 Balance 1700 1680 - Medications Medications: Current Medications Diphenhydramine HCl (Benadryl) 25 mg IVP Q3 PRN PRN Reason: Itching / Pruritus Last Admin: 06/25/17 13:37 Dose: 25 mg Enoxaparin Sodium (Lovenox) 40 mg SC DAILY [facility] Last Admin: 06/25/17 10:05 Dose: 40 mg Folic Acid (Folic Acid) 1 mg PO DAILY [facility] Last Admin: 06/25/17 10:05 Dose: 1 mg Hydromorphone HCl (Dilaudid) 2 mg IVP Q3H PRN PRN Reason: Pain, severe (8-10) Last Admin: 06/25/17 13:38 Dose: 2 mg Hydroxyurea (Hydrea) 500 mg PO TID [facility] Last Admin: 06/25/17 14:32 Dose: 500 mg Sodium Chloride (Sodium Chloride 0.45%) 1,000 mls @ 150 mls/hr IV .Q6H40M [facility] Last Admin: 06/25/17 13:11 Dose: Not Given Ondansetron HCl (Zofran Inj) 4 mg IVP Q6 PRN PRN Reason: Nausea/Vomiting Last Admin: 06/24/17 14:10 Dose: 4 mg - Labs Labs: 06/25/17 13:55 06/25/17 13:55 Assessment and Plan - Assessment and Plan (Free Text) Plan: 31 Y/O FEMALE WITH SICKLE CELL H/H: 6.7/[address] KYLE POC EXPLAINED TO PT, RISK AND BENEFITS DISCUSSED WITH HER, CONSENT RECIEVED FOR TRANSFUSION REPEAT LAB IN AM AND POST TRANSFUSION ORDERED
--- NOTE | 2017-06-25 15:31 | CP.PCM.PN ---
Subjective - Date & Time of Evaluation Date of Evaluation: 06/25/17 Time of Evaluation: 15:00 - Subjective Subjective: Feels weak, tired. Has pain. For 2U PRBC today. Objective - Vital Signs/Intake and Output Vital Signs (last 24 hours): Temp Pulse Resp BP Pulse Ox 98.9 F 76 20 98/57 L 96 06/25/17 08:02 06/25/17 08:02 06/25/17 08:02 06/25/17 08:02 06/25/17 08:02 Intake and Output: 06/25/17 06/25/17 06:59 18:59 Intake Total 1700 1680 Balance 1700 1680 - Medications Medications: Current Medications Diphenhydramine HCl (Benadryl) 25 mg IVP Q3 PRN PRN Reason: Itching / Pruritus Last Admin: 06/25/17 13:37 Dose: 25 mg Enoxaparin Sodium (Lovenox) 40 mg SC DAILY [facility] Last Admin: 06/25/17 10:05 Dose: 40 mg Folic Acid (Folic Acid) 1 mg PO DAILY [facility] Last Admin: 06/25/17 10:05 Dose: 1 mg Hydromorphone HCl (Dilaudid) 2 mg IVP Q3H PRN PRN Reason: Pain, severe (8-10) Last Admin: 06/25/17 13:38 Dose: 2 mg Hydroxyurea (Hydrea) 500 mg PO TID [facility] Last Admin: 06/25/17 14:32 Dose: 500 mg Sodium Chloride (Sodium Chloride 0.45%) 1,000 mls @ 150 mls/hr IV .Q6H40M [facility] Last Admin: 06/25/17 13:11 Dose: Not Given Ondansetron HCl (Zofran Inj) 4 mg IVP Q6 PRN PRN Reason: Nausea/Vomiting Last Admin: 06/24/17 14:10 Dose: 4 mg - Labs Labs: 06/25/17 13:55 06/25/17 13:55 - Head Exam Head Exam: ATRAUMATIC - Eye Exam Eye Exam: Normal appearance - ENT Exam ENT Exam: Mucous Membranes Dry - Respiratory Exam Respiratory Exam: NORMAL BREATHING PATTERN - Cardiovascular Exam Cardiovascular Exam: +S1, +S2 - GI/Abdominal Exam GI & Abdominal Exam: Normal Bowel Sounds - Extremities Exam Extremities Exam: Normal Inspection Assessment and Plan (1) Sickle cell pain crisis Assessment & Plan: IV fluids, folic acid, hydrea, 02 via NC for 2U PRBC today Status: Acute (2) Leukocytosis Assessment & Plan: likely reactive from sickle cell Status: Acute (3) Secondary hemochromatosis Assessment & Plan: chronic transfusion minimize transfusion support outpatient chelation Status: Acute (4) Sickle cell anemia Assessment & Plan: hydrea and folic acid Status: Chronic
--- NOTE | 2017-06-25 20:34 | CP.PCM.PN ---
Subjective - Date & Time of Evaluation Date of Evaluation: 06/25/17 Time of Evaluation: 20:34 Objective - Vital Signs/Intake and Output Vital Signs (last 24 hours): Temp Pulse Resp BP Pulse Ox 98.2 F 85 20 109/69 97 06/25/17 20:04 06/25/17 20:04 06/25/17 20:04 06/25/17 20:04 06/25/17 16:00 Intake and Output: 06/25/17 06/26/17 18:59 06:59 Intake Total 1680 0 Balance 1680 0 - Medications Medications: Current Medications Diphenhydramine HCl (Benadryl) 25 mg IVP Q3 PRN PRN Reason: Itching / Pruritus Last Admin: 06/25/17 19:35 Dose: 25 mg Enoxaparin Sodium (Lovenox) 40 mg SC DAILY [facility] Last Admin: 06/25/17 10:05 Dose: 40 mg Folic Acid (Folic Acid) 1 mg PO DAILY [facility] Last Admin: 06/25/17 10:05 Dose: 1 mg Hydromorphone HCl (Dilaudid) 2 mg IVP Q3H PRN PRN Reason: Pain, severe (8-10) Last Admin: 06/25/17 19:35 Dose: 2 mg Hydroxyurea (Hydrea) 500 mg PO TID [facility] Last Admin: 06/25/17 17:46 Dose: 500 mg Sodium Chloride (Sodium Chloride 0.45%) 1,000 mls @ 150 mls/hr IV .Q6H40M [facility] Last Admin: 06/25/17 17:55 Dose: 150 mls/hr Ondansetron HCl (Zofran Inj) 4 mg IVP Q6 PRN PRN Reason: Nausea/Vomiting Last Admin: 06/24/17 14:10 Dose: 4 mg - Labs Labs: 06/25/17 13:55 06/25/17 13:55
[2017-06-26] MEDS: Sodium Chloride 0.45% 1,000 ML IV SCH ×6 (01:21→20:55)
[2017-06-26] MEDS: DiphenhydrAMINE 50 mg/ml Inj IVP PRN ×8 (01:45→22:50)
[2017-06-26 07:26] LABS: BASO # 0.1 K/uL (0.0-0.2); BASO % 0.3 % (0.0-2.0); EOS # 0.4 K/uL (0.0-0.7); EOS % 2.6 % (0.0-4.0); LYMPH # 6.7 K/uL (1.0-4.3); LYMPH % 40.7 % (20.0-40.0); MEAN CORPUSCULAR HGB CONC 33.6 g/dL (33.0-37.0); MEAN PLATELET VOLUME 8.1 fL (7.2-11.7); MONO # 1.2 K/uL (0.0-0.8); MONO % 7.2 % (0.0-10.0); NEUT # 8.1 K/uL (1.8-7.0); NEUT % 49.2 % (50.0-75.0); NRBC % 0.4 % (0.0-2.0); RBC 3.12 Mil/uL (3.80-5.20); RED CELL DISTRIBUTION WIDTH 17.5 % (11.5-14.5); WHITE BLOOD COUNT 16.5 K/uL (4.8-10.8)
[2017-06-26 07:31] LABS: HEMOGLOBIN 9.4 g/dL (11.0-16.0); MEAN CELL VOLUME 89.2 fL (81.0-99.0)
[2017-06-26 08:19] LABS: ALB/GLOB RATIO 1.3 (1.0-2.1); ALBUMIN 3.5 g/dL (3.5-5.0); ALT/SGPT 70 U/L (9-52); AST/SGOT 55 U/L (14-36); BLOOD UREA NITROGEN 9 mg/dL (7-17); GFR AFRICAN-AMERICAN > 60; GFR NON-AFRICAN AMERICAN > 60
--- NOTE | 2017-06-26 15:43 | CP.PCM.PN ---
Subjective - Date & Time of Evaluation Date of Evaluation: 06/26/17 Time of Evaluation: 15:43 Objective - Vital Signs/Intake and Output Vital Signs (last 24 hours): Temp Pulse Resp BP Pulse Ox 98.3 F 76 20 121/80 96 06/26/17 07:59 06/26/17 07:59 06/26/17 07:59 06/26/17 07:59 06/26/17 07:59 Intake and Output: 06/26/17 06/26/17 06:59 18:59 Intake Total 3590 1600 Balance 3590 1600 - Medications Medications: Current Medications Diphenhydramine HCl (Benadryl) 25 mg IVP Q3 PRN PRN Reason: Itching / Pruritus Last Admin: 06/26/17 13:44 Dose: 25 mg Enoxaparin Sodium (Lovenox) 40 mg SC DAILY [facility] Last Admin: 06/25/17 10:05 Dose: 40 mg Folic Acid (Folic Acid) 1 mg PO DAILY [facility] Last Admin: 06/26/17 09:45 Dose: 1 mg Hydromorphone HCl (Dilaudid) 2 mg IVP Q3H PRN PRN Reason: Pain, severe (8-10) Last Admin: 06/26/17 13:43 Dose: 2 mg Hydroxyurea (Hydrea) 500 mg PO TID [facility] Last Admin: 06/26/17 13:15 Dose: 500 mg Sodium Chloride (Sodium Chloride 0.45%) 1,000 mls @ 150 mls/hr IV .Q6H40M [facility] Last Admin: 06/26/17 13:18 Dose: Not Given Ondansetron HCl (Zofran Inj) 4 mg IVP Q6 PRN PRN Reason: Nausea/Vomiting Last Admin: 06/24/17 14:10 Dose: 4 mg - Labs Labs: 06/26/17 07:02 06/26/17 07:02
[2017-06-27] MEDS: DiphenhydrAMINE 50 mg/ml Inj IVP PRN ×8 (02:02→23:51)
[2017-06-27] MEDS: Sodium Chloride 0.45% 1,000 ML IV SCH ×4 (02:06→23:59)
[2017-06-27] MEDS: Enoxaparin 40 mg Syringe SC SCH (10:01)
--- NOTE | 2017-06-27 17:14 | CP.PCM.PN ---
Subjective - Date & Time of Evaluation Date of Evaluation: 06/27/17 Time of Evaluation: 17:13 Objective - Vital Signs/Intake and Output Vital Signs (last 24 hours): Temp Pulse Resp BP Pulse Ox 98.3 F 79 20 118/68 98 06/27/17 15:00 06/27/17 15:00 06/27/17 15:00 06/27/17 15:00 06/27/17 15:00 Intake and Output: 06/27/17 06/27/17 06:59 18:59 Intake Total 3380 1700 Balance 3380 1700 - Medications Medications: Current Medications Diphenhydramine HCl (Benadryl) 25 mg IVP Q3 PRN PRN Reason: Itching / Pruritus Last Admin: 06/27/17 14:35 Dose: 25 mg Enoxaparin Sodium (Lovenox) 40 mg SC DAILY [facility] Last Admin: 06/27/17 10:01 Dose: 40 mg Folic Acid (Folic Acid) 1 mg PO DAILY [facility] Last Admin: 06/27/17 10:01 Dose: 1 mg Hydromorphone HCl (Dilaudid) 2 mg IVP Q3H PRN PRN Reason: Pain, severe (8-10) Last Admin: 06/27/17 14:35 Dose: 2 mg Hydroxyurea (Hydrea) 500 mg PO TID [facility] Last Admin: 06/27/17 14:34 Dose: 500 mg Sodium Chloride (Sodium Chloride 0.45%) 1,000 mls @ 150 mls/hr IV .Q6H40M [facility] Last Admin: 06/27/17 10:03 Dose: 150 mls/hr Ondansetron HCl (Zofran Inj) 4 mg IVP Q6 PRN PRN Reason: Nausea/Vomiting Last Admin: 06/24/17 14:10 Dose: 4 mg - Labs Labs: 06/26/17 07:02 06/26/17 07:02
--- NOTE | 2017-06-27 23:34 | CP.PCM.PN ---
Subjective - Date & Time of Evaluation Date of Evaluation: 06/26/17 Time of Evaluation: 13:00 - Subjective Subjective: Feeling better s/p PRBC transfusion Objective - Vital Signs/Intake and Output Vital Signs (last 24 hours): Temp Pulse Resp BP Pulse Ox 98.3 F 79 20 118/68 98 06/27/17 15:00 06/27/17 15:00 06/27/17 15:00 06/27/17 15:00 06/27/17 15:00 Intake and Output: 06/27/17 06/28/17 18:59 06:59 Intake Total 1700 Balance 1700 - Medications Medications: Current Medications Diphenhydramine HCl (Benadryl) 25 mg IVP Q3 PRN PRN Reason: Itching / Pruritus Last Admin: 06/27/17 20:31 Dose: 25 mg Enoxaparin Sodium (Lovenox) 40 mg SC DAILY [facility] Last Admin: 06/27/17 10:01 Dose: 40 mg Folic Acid (Folic Acid) 1 mg PO DAILY [facility] Last Admin: 06/27/17 10:01 Dose: 1 mg Hydromorphone HCl (Dilaudid) 2 mg IVP Q3H PRN PRN Reason: Pain, severe (8-10) Last Admin: 06/27/17 20:32 Dose: 2 mg Hydroxyurea (Hydrea) 500 mg PO TID [facility] Last Admin: 06/27/17 17:36 Dose: 500 mg Sodium Chloride (Sodium Chloride 0.45%) 1,000 mls @ 150 mls/hr IV .Q6H40M [facility] Last Admin: 06/27/17 16:10 Dose: Not Given Ondansetron HCl (Zofran Inj) 4 mg IVP Q6 PRN PRN Reason: Nausea/Vomiting Last Admin: 06/24/17 14:10 Dose: 4 mg - Labs Labs: 06/26/17 07:02 06/26/17 07:02 - Head Exam Head Exam: ATRAUMATIC - Eye Exam Eye Exam: Normal appearance - ENT Exam ENT Exam: Mucous Membranes Dry - Respiratory Exam Respiratory Exam: NORMAL BREATHING PATTERN - Cardiovascular Exam Cardiovascular Exam: +S1, +S2 - GI/Abdominal Exam GI & Abdominal Exam: Normal Bowel Sounds Assessment and Plan (1) Sickle cell pain crisis Assessment & Plan: IV fluids, pain meds, folic acid, 02 via NC s/p PRBC transfusion Status: Acute (2) Leukocytosis Assessment & Plan: reactive Status: Acute (3) Secondary hemochromatosis Assessment & Plan: outpatient chelation minimize transfusion support Status: Acute (4) Sickle cell anemia Assessment & Plan: folic acid and hydrea Status: Chronic
--- NOTE | 2017-06-27 23:35 | CP.PCM.PN ---
Subjective - Date & Time of Evaluation Date of Evaluation: 06/27/17 Time of Evaluation: 18:00 - Subjective Subjective: Feeling better Objective - Vital Signs/Intake and Output Vital Signs (last 24 hours): Temp Pulse Resp BP Pulse Ox 98.3 F 79 20 118/68 98 06/27/17 15:00 06/27/17 15:00 06/27/17 15:00 06/27/17 15:00 06/27/17 15:00 Intake and Output: 06/27/17 06/28/17 18:59 06:59 Intake Total 1700 Balance 1700 - Medications Medications: Current Medications Diphenhydramine HCl (Benadryl) 25 mg IVP Q3 PRN PRN Reason: Itching / Pruritus Last Admin: 06/27/17 20:31 Dose: 25 mg Enoxaparin Sodium (Lovenox) 40 mg SC DAILY [facility] Last Admin: 06/27/17 10:01 Dose: 40 mg Folic Acid (Folic Acid) 1 mg PO DAILY [facility] Last Admin: 06/27/17 10:01 Dose: 1 mg Hydromorphone HCl (Dilaudid) 2 mg IVP Q3H PRN PRN Reason: Pain, severe (8-10) Last Admin: 06/27/17 20:32 Dose: 2 mg Hydroxyurea (Hydrea) 500 mg PO TID [facility] Last Admin: 06/27/17 17:36 Dose: 500 mg Sodium Chloride (Sodium Chloride 0.45%) 1,000 mls @ 150 mls/hr IV .Q6H40M [facility] Last Admin: 06/27/17 16:10 Dose: Not Given Ondansetron HCl (Zofran Inj) 4 mg IVP Q6 PRN PRN Reason: Nausea/Vomiting Last Admin: 06/24/17 14:10 Dose: 4 mg - Labs Labs: 06/26/17 07:02 06/26/17 07:02 - Head Exam Head Exam: ATRAUMATIC - Eye Exam Eye Exam: Normal appearance - ENT Exam ENT Exam: Mucous Membranes Dry - Respiratory Exam Respiratory Exam: NORMAL BREATHING PATTERN - Cardiovascular Exam Cardiovascular Exam: +S1, +S2 - GI/Abdominal Exam GI & Abdominal Exam: Normal Bowel Sounds - Extremities Exam Extremities Exam: Normal Inspection Assessment and Plan (1) Sickle cell pain crisis Assessment & Plan: IV fluids, pain meds, folic acid, 02 via NC s/p PRBC transfusion Status: Acute (2) Leukocytosis Assessment & Plan: reactive Status: Acute (3) Secondary hemochromatosis Assessment & Plan: outpatient chelation minimize transfusion support Status: Acute (4) Sickle cell anemia Assessment & Plan: folic acid and hydrea Status: Chronic
[2017-06-28] MEDS: Sodium Chloride 0.45% 1,000 ML IV SCH ×3 (02:53→12:10)
[2017-06-28] MEDS: DiphenhydrAMINE 50 mg/ml Inj IVP PRN ×4 (03:00→12:55)
[2017-06-28 08:37] VITALS: BP 116/73; PULSE 68; TEMP 97.9; O2SAT 100
[2017-06-28] MEDS: Enoxaparin 40 mg Syringe SC SCH (09:25)
--- NOTE | 2017-06-28 12:31 | CP.PCM.PN ---
Subjective - Date & Time of Evaluation Date of Evaluation: 06/28/17 Time of Evaluation: 12:31 Objective - Vital Signs/Intake and Output Vital Signs (last 24 hours): Temp Pulse Resp BP Pulse Ox 97.9 F 68 20 116/73 100 06/28/17 08:36 06/28/17 08:36 06/28/17 08:36 06/28/17 08:36 06/28/17 08:36 - Medications Medications: Current Medications Diphenhydramine HCl (Benadryl) 25 mg IVP Q3 PRN PRN Reason: Itching / Pruritus Last Admin: 06/28/17 09:22 Dose: 25 mg Enoxaparin Sodium (Lovenox) 40 mg SC DAILY [facility] Last Admin: 06/28/17 09:25 Dose: 40 mg Folic Acid (Folic Acid) 1 mg PO DAILY [facility] Last Admin: 06/28/17 09:27 Dose: 1 mg Hydromorphone HCl (Dilaudid) 2 mg IVP Q3H PRN PRN Reason: Pain, severe (8-10) Last Admin: 06/28/17 09:23 Dose: 2 mg Hydroxyurea (Hydrea) 500 mg PO TID [facility] Last Admin: 06/28/17 09:34 Dose: 500 mg Sodium Chloride (Sodium Chloride 0.45%) 1,000 mls @ 150 mls/hr IV .Q6H40M [facility] Last Admin: 06/28/17 05:39 Dose: Not Given Ondansetron HCl (Zofran Inj) 4 mg IVP Q6 PRN PRN Reason: Nausea/Vomiting Last Admin: 06/24/17 14:10 Dose: 4 mg - Labs Labs: 06/26/17 07:02 06/26/17 07:02
== END 2017-06-28 13:50 | disposition left against medical advice (07) | DRG 395 ==
LOC: C.ER 15:37 → C.3T 23:41 → OBSVTOIN 06-25 12:06
PROVIDERS: ADMIT Internal Medicine Critical Care Medicine; ATTEND Internal Medicine Critical Care Medicine
DX: D57.00 Hb-SS disease with crisis, unspecified (principal); D72.829 Elevated white blood cell count, unspecified; F17.200 Nicotine dependence, unspecified, uncomplicated; Z90.81 Acquired absence of spleen; E83.119 Hemochromatosis, unspecified; Z87.01 Personal history of pneumonia (recurrent)

== ENCOUNTER 2017-07-02 12:10 | Emergency (ER) | payer MEDICAID ==
[2017-07-02 12:14] VITALS: BMI 22.6
[2017-07-02 12:19] VITALS: RESP 18
--- NOTE | 2017-07-02 13:03 | C.PDOC ---
History Of Present Illness Dotty Camarena is a 32 year old female, with a past medical history of sickle cell disease and anemia, who presents to the emergency department with sickle cell pain associated with some dysuria for the last 4 days. Patient states "my whole body hurts." She denies any fever or other medical complaints. PMD: Enzo Louis Time Seen by Provider: 07/02/17 12:59 Chief Complaint (Nursing): Medical Clearance History Per: Patient History/Exam Limitations: no limitations Onset/Duration Of Symptoms: Days (x4) Current Symptoms Are (Timing): Still Present Reports Recently: Seen In ED Past Medical History Reviewed: Historical Data, Nursing Documentation, Vital Signs Vital Signs: Last Vital Signs Temp 97.8 F 07/02/17 16:39 Pulse 77 07/02/17 16:39 Resp 18 07/02/17 16:39 BP 136/74 07/02/17 16:39 Pulse Ox 99 07/02/17 16:39 - Medical History PMH: Anemia, Bronchitis, Gall Bladder Disease (GB stone), Pneumonia, Sickle Cell Disease Denies: Chronic Kidney Disease Surgical History: Cholecystectomy - [facility] Procedures INFLUENZA VACCINATION (03/16/12) INJECT/INFUSE ELECTROLYT (09/07/13) INJECT/INFUSE NEC (01/25/14) INSERT VAD RESERVOIR IN CHEST SUBCU/FASCIA, OPEN (05/31/17) INSERTION OF INFUSION DEV INTO SUP VENA CAVA, PERC APPROACH (01/25/17) NEBULIZER THERAPY (12/02/13) PACKED CELL TRANSFUSION (02/12/15) REMOVAL OF VAD FROM TRUNK SUBCU/FASCIA, OPEN APPROACH (04/15/16) TRANSFUSE NONAUT RED BLOOD CELLS IN PERIPH VEIN, PERC (04/17/17) VACCINATION NEC (08/22/13) Family History: States: Unknown Family Hx - Social History Hx Tobacco Use: No Hx Alcohol Use: No Hx Substance Use: Yes ("marijuana" smokes) - Immunization History Hx Tetanus Toxoid Vaccination: Yes Hx Influenza Vaccination: Yes (2016) Hx Pneumococcal Vaccination: Yes (2014) Review Of Systems Constitutional: Positive for: Other (sickle cell pain). Negative for: Fever, Chills Cardiovascular: Negative for: Chest Pain Respiratory: Negative for: Cough, Shortness of Breath Gastrointestinal: Negative for: Nausea, Vomiting, Diarrhea Genitourinary: Positive for: Dysuria Neurological: Negative for: Weakness, Numbness Physical Exam - Physical Exam Appears: Well, Non-toxic, No Acute Distress Skin: Warm, Dry Head: Atraumatic Eye(s): bilateral: PERRL, EOMI Nose: No Epistaxis Oral Mucosa: Moist Tongue: No Swelling Neck: Normal ROM Cardiovascular: Rhythm Regular Respiratory: No Normal Breath Sounds, No Accessory Muscle Use, No Rales, No Rhonchi, No Stridor, No Wheezing Gastrointestinal/Abdominal: Soft, No Tenderness, No Distention Back: No Vertebral Tenderness Extremity: Normal ROM, No Deformity, No Swelling Pulses: Left Radial: Normal, Right Radial: Normal, Left Dorsalis Pedis: Normal, Right Dorsalis Pedis: Normal Neurological/Psych: Oriented x3, Normal Motor, Normal Sensation, Other (no focal deficits. ) ED Course And Treatment O2 Sat by Pulse Oximetry: 98 (RA) Pulse Ox Interpretation: Normal Medical Decision Making Medical Decision Makin pt resting quietly, playing on her phone. on re-eval she requests third round of pain medication and then would like to go home. Disposition - Disposition Referrals: Enzo Louis MD [Staff Provider] - Disposition: HOME/ ROUTINE Disposition Time: 16:33 Condition: STABLE Forms: General Discharge Instructions, [facility] (Burmese) - Clinical Impression Clinical Impression: Sickle cell disease, Generalized pain - Scribe Statement Mendez Zimmer All medical record entries made by the Scribe were at my direction and personally dictated by me. I have reviewed the chart and agree that the record accurately reflects my personal performance of the history, physical exam, medical decision making, and the department course for this patient. I have also personally directed, reviewed, and agree with the discharge instructions and disposition.
[2017-07-02 13:53] LABS: SQUAMOUS EPITHIAL 1 /hpf (0-5); URINE BILIRUBIN NEGATIVE (NEGATIVE); URINE BLOOD NEGATIVE (NEGATIVE); URINE CLARITY Clear (Clear); URINE COLOR Yellow (YELLOW); URINE GLUCOSE (UA) NORMAL (Normal); URINE LEUKOCYTE ESTERASE NEG Leu/uL (Negative); URINE NITRATE NEGATIVE (NEGATIVE); URINE PROTEIN NEGATIVE (NEGATIVE); URINE UROBILINOGEN NORMAL mg/dL (0.2-1.0)
[2017-07-02 16:40] VITALS: BP 136/74; PULSE 77; TEMP 97.8
[2017-07-05 12:42] VITALS: O2SAT 98
== END 2017-07-02 16:40 | disposition home or self-care (01) ==
LOC: C.ER 12:10
DX: D57.1 Sickle-cell disease without crisis (principal); R52 Pain, unspecified

== ENCOUNTER 2017-07-04 23:14 | Emergency (ER) | payer MEDICAID ==
[2017-07-04 23:15] VITALS: BMI 22.6
[2017-07-04 23:24] VITALS: O2SAT 96
--- NOTE | 2017-07-04 23:34 | C.PDOC ---
History Of Present Illness Patient with a Hx of sickle cell disease presents to the ER with a complaint of abdominal pain and diffuse body aches. Denies fever or chills. Time Seen by Provider: 07/04/17 23:33 Chief Complaint (Nursing): Abdominal Pain History Per: Patient History/Exam Limitations: no limitations Onset/Duration Of Symptoms: Hrs Current Symptoms Are (Timing): Still Present Severity: Mild Pain Scale Rating Of: 3 Location Of Pain/Discomfort: Diffuse Radiation Of Pain To:: None Quality Of Discomfort: Dull Associated Symptoms: denies: Fever, Chills, Chest Pain Exacerbating Factors: None Alleviating Factors: None Last Bowel Movement: Today Recent travel outside of the [place]: No Additional History Per: Patient Abnormal Vaginal Bleeding: No Past Medical History Reviewed: Historical Data, Nursing Documentation, Vital Signs Vital Signs: Last Vital Signs Temp 98.9 F 07/04/17 23:21 Pulse 90 07/04/17 23:21 Resp 14 07/04/17 23:21 BP 118/80 07/04/17 23:21 Pulse Ox 96 07/05/17 00:11 - Medical History PMH: Anemia, Bronchitis, Gall Bladder Disease (GB stone), Pneumonia, Sickle Cell Disease Surgical History: Cholecystectomy - [facility] Procedures INFLUENZA VACCINATION (03/16/12) INJECT/INFUSE ELECTROLYT (09/07/13) INJECT/INFUSE NEC (01/25/14) INSERT VAD RESERVOIR IN CHEST SUBCU/FASCIA, OPEN (05/31/17) INSERTION OF INFUSION DEV INTO SUP VENA CAVA, PERC APPROACH (01/25/17) NEBULIZER THERAPY (12/02/13) PACKED CELL TRANSFUSION (02/12/15) REMOVAL OF VAD FROM TRUNK SUBCU/FASCIA, OPEN APPROACH (04/15/16) TRANSFUSE NONAUT RED BLOOD CELLS IN PERIPH VEIN, PERC (04/17/17) VACCINATION NEC (08/22/13) Family History: States: No Known Family Hx - Social History Hx Tobacco Use: No Hx Alcohol Use: No Hx Substance Use: Yes ("marijuana" smokes) - Immunization History Hx Tetanus Toxoid Vaccination: Yes Hx Influenza Vaccination: Yes (2016) Hx Pneumococcal Vaccination: Yes (2014) Review Of Systems Constitutional: Negative for: Fever, Chills Eyes: Negative for: Redness Cardiovascular: Negative for: Chest Pain Respiratory: Negative for: Shortness of Breath Gastrointestinal: Positive for: Abdominal Pain (mild). Negative for: Nausea, Vomiting Genitourinary: Negative for: Dysuria Musculoskeletal: Positive for: Other (Body aches) Skin: Negative for: Rash Neurological: Negative for: Weakness Psych: Negative for: Anxiety Physical Exam - Physical Exam Appears: Non-toxic Skin: Warm, Dry Head: Normacephalic Eye(s): bilateral: Normal Inspection Oral Mucosa: Moist Neck: Supple Chest: Symmetrical, No Tenderness Cardiovascular: Rhythm Regular Respiratory: No Rales, No Rhonchi, No Wheezing Gastrointestinal/Abdominal: Soft, No Tenderness Back: No CVA Tenderness Extremity: Normal ROM Extremity: Bilateral: Atraumatic Neurological/Psych: Oriented x3, Normal Speech, Normal Cognition Gait: Steady ED Course And Treatment - Laboratory Results Result Diagrams: 07/05/17 00:28 07/05/17 00:28 O2 Sat by Pulse Oximetry: 96 (Room air) Pulse Ox Interpretation: Normal Progress Note: Blood work and urinalysis ordered. Pepcid and IV fluids administered. spoke with patient at length about the need to follow up with a pain menagement clinic/doctor, in order to better control her pain. Reevaluation Time: 01:11 Reassessment Condition: Improved Disposition Counseled Patient/Family Regarding: Studies Performed, Diagnosis, Need For Followup - Disposition Referrals: Ezno Louis MD [Staff Provider] - Disposition: HOME/ ROUTINE Disposition Time: 23:34 Condition: FAIR Instructions: Sickle Cell Anemia (DC), Abdominal Pain (ED) Forms: [facility] (Slovenian) - Clinical Impression Clinical Impression: Abdominal pain, Sickle cell anemia - Scribe Statement The provider has reviewed the documentation as recorded by the Zacheryibvalarie Bills All medical record entries made by the Zacheryibvalarie were at my direction and personally dictated by me. I have reviewed the chart and agree that the record accurately reflects my personal performance of the history, physical exam, medical decision making, and the department course for this patient. I have also personally directed, reviewed, and agree with the discharge instructions and disposition.
[2017-07-04] MEDS ORDERED: Sodium Chloride 0.9% 1,000 ML IV ONE (23:55)
[2017-07-05] MEDS ORDERED: Sodium Chloride 0.9% 1,000 ML ONE (00:24)
[2017-07-05 00:36] LABS: SQUAMOUS EPITHIAL 1 /hpf (0-5); URINE BILIRUBIN NEGATIVE (NEGATIVE); URINE BLOOD NEGATIVE (NEGATIVE); URINE CLARITY Clear (Clear); URINE COLOR Yellow (YELLOW); URINE GLUCOSE (UA) NORMAL (Normal); URINE LEUKOCYTE ESTERASE NEG Leu/uL (Negative); URINE NITRATE NEGATIVE (NEGATIVE); URINE PROTEIN NEGATIVE (NEGATIVE)
[2017-07-05 00:37] LABS: BASO # 0.1 K/uL (0.0-0.2); BASO % 0.5 % (0.0-2.0); EOS # 0.1 K/uL (0.0-0.7); EOS % 0.7 % (0.0-4.0); HEMOGLOBIN 8.8 g/dL (11.0-16.0); LYMPH # 5.4 K/uL (1.0-4.3); LYMPH % 32.1 % (20.0-40.0); MEAN CELL VOLUME 90.9 fL (81.0-99.0); MEAN CORPUSCULAR HEMOGLOBIN 30.6 pg (27.0-31.0); MEAN CORPUSCULAR HGB CONC 33.7 g/dL (33.0-37.0); MEAN PLATELET VOLUME 8.4 fL (7.2-11.7); MONO # 1.8 K/uL (0.0-0.8); MONO % 10.7 % (0.0-10.0); NEUT # 9.4 K/uL (1.8-7.0); NRBC % 0.1 % (0.0-2.0); RBC 2.86 Mil/uL (3.80-5.20); RED CELL DISTRIBUTION WIDTH 17.4 % (11.5-14.5); WHITE BLOOD COUNT 16.8 K/uL (4.8-10.8)
[2017-07-05 00:46] LABS: ALB/GLOB RATIO 1.4 (1.0-2.1); ALBUMIN 3.9 g/dL (3.5-5.0); ALT/SGPT 115 U/L (9-52); AST/SGOT 52 U/L (14-36); BLOOD UREA NITROGEN 12 mg/dL (7-17); CALCIUM 8.2 mg/dl (8.6-10.4); GFR AFRICAN-AMERICAN > 60; GFR NON-AFRICAN AMERICAN > 60; LIPASE 137 U/L (23-300)
[2017-07-05 00:49] LABS: HCG,QUALITATIVE URINE NEGATIVE (NEGATIVE)
[2017-07-05 01:00] LABS: INR 1.2; PROTHROMBIN TIME 13.1 SECONDS (9.7-12.2)
[2017-07-05 01:12] VITALS: BP 109/72; PULSE 72; RESP 18; TEMP 97.8
== END 2017-07-05 01:30 | disposition home or self-care (01) ==
LOC: C.ER 23:14
DX: D57.1 Sickle-cell disease without crisis (principal); R10.9 Unspecified abdominal pain
CPT/HCPCS: 80053; 81001; 83690; 84703; 85025; 85044; 85610; 85730; 86850; 86900; 96361; 96374; 99284; J7040

== ENCOUNTER 2017-07-11 11:02 | Emergency (ER) | payer MEDICAID ==
[2017-07-11 11:02] VITALS: BMI 22.6
[2017-07-11 11:26] VITALS: BP 124/79; PULSE 92; RESP 18; TEMP 99.1; O2SAT 99
--- NOTE | 2017-07-11 12:39 | C.PDOC ---
History Of Present Illness 32-year-old female, PMHx includes sickle cell disease, presents to the emergency department with complaints of abdominal pain and diffuse body aches. Denies chest pain, SOB, fever or chills. Patient has a Hx of multiple visits for same complaint. Time Seen by Provider: 07/11/17 11:36 Chief Complaint (Nursing): Abdominal Pain History Per: Patient History/Exam Limitations: no limitations Radiation Of Pain To:: None Associated Symptoms: denies: Fever, Chills, Back Pain, Constipation, Urinary Symptoms Exacerbating Factors: None Alleviating Factors: None Recent travel outside of the [place]: No Past Medical History Reviewed: Historical Data, Nursing Documentation, Vital Signs Vital Signs: Last Vital Signs Temp 99.1 F 07/11/17 11:25 Pulse 92 H 07/11/17 11:25 Resp 18 07/11/17 11:25 BP 124/79 07/11/17 11:25 Pulse Ox 99 07/12/17 10:51 - Medical History PMH: Anemia, Bronchitis, Gall Bladder Disease (GB stone), Pneumonia, Sickle Cell Disease Surgical History: Cholecystectomy - [facility] Procedures INFLUENZA VACCINATION (03/16/12) INJECT/INFUSE ELECTROLYT (09/07/13) INJECT/INFUSE NEC (01/25/14) INSERT VAD RESERVOIR IN CHEST SUBCU/FASCIA, OPEN (05/31/17) INSERTION OF INFUSION DEV INTO SUP VENA CAVA, PERC APPROACH (01/25/17) NEBULIZER THERAPY (12/02/13) PACKED CELL TRANSFUSION (02/12/15) REMOVAL OF VAD FROM TRUNK SUBCU/FASCIA, OPEN APPROACH (04/15/16) TRANSFUSE NONAUT RED BLOOD CELLS IN PERIPH VEIN, PERC (04/17/17) VACCINATION NEC (08/22/13) Family History: States: No Known Family Hx - Social History Hx Tobacco Use: No Hx Alcohol Use: No Hx Substance Use: Yes ("marijuana" smokes) - Immunization History Hx Tetanus Toxoid Vaccination: Yes Hx Influenza Vaccination: Yes (2016) Hx Pneumococcal Vaccination: Yes (2014) Review Of Systems Except As Marked, All Systems Reviewed And Found Negative. Constitutional: Positive for: Malaise. Negative for: Fever Cardiovascular: Negative for: Chest Pain Respiratory: Negative for: Shortness of Breath Gastrointestinal: Negative for: Vomiting Musculoskeletal: Negative for: Back Pain Neurological: Negative for: Weakness, Numbness Physical Exam - Physical Exam Appears: Non-toxic, No Acute Distress Skin: Warm, Dry, No Rash Head: Atraumatic, Normacephalic Eye(s): bilateral: Normal Inspection, PERRL Nose: Normal Oral Mucosa: Moist Lips: Normal Appearing Neck: Normal ROM Chest: Symmetrical Cardiovascular: Rhythm Regular, No Murmur Respiratory: Normal Breath Sounds, No Accessory Muscle Use Extremity: Normal ROM Neurological/Psych: Oriented x3, Normal Speech ED Course And Treatment O2 Sat by Pulse Oximetry: 99 (on RA) Pulse Ox Interpretation: Normal Medical Decision Making Medical Decision Making: sickle cell protocol ordered 12:53 Patient states she is feeling better, would like to be discharged home. Lungs are CTA, heart is RRR, abdomen is soft, non-tender and tolerating PO well. Ambulatory in the ED with steady gait. Follow up with the medical doctor within 1-2 days. Return if worsened. Disposition - Disposition Referrals: Enzo Louis MD [Staff Provider] - Disposition: HOME/ ROUTINE Disposition Time: 12:00 Condition: GOOD Additional Instructions: Follow up with the medical doctor within 1-2 days without fail. Return if worsened. Instructions: Chronic Pain (ED) Forms: [facility] (Malaysian) - Clinical Impression Clinical Impression: Sickle cell disease, Chronic pain - Scribe Statement The provider has reviewed the documentation as recorded by the Scribe (Anika Shearer) All medical record entries made by the Scribe were at my direction and personally dictated by me. I have reviewed the chart and agree that the record accurately reflects my personal performance of the history, physical exam, medical decision making, and the department course for this patient. I have also personally directed, reviewed, and agree with the discharge instructions and disposition.
[2017-07-11 12:45] LABS: HCG,QUALITATIVE URINE NEGATIVE (NEGATIVE)
[2017-07-11 12:57] LABS: SQUAMOUS EPITHIAL 1 /hpf (0-5); URINE BACTERIA RARE (<OCC); URINE BILIRUBIN NEGATIVE (NEGATIVE); URINE BLOOD NEGATIVE (NEGATIVE); URINE CLARITY Clear (Clear); URINE COLOR Yellow (YELLOW); URINE GLUCOSE (UA) NORMAL (Normal); URINE LEUKOCYTE ESTERASE NEG Leu/uL (Negative); URINE NITRATE NEGATIVE (NEGATIVE); URINE PROTEIN NEGATIVE (NEGATIVE)
== END 2017-07-11 13:25 | disposition home or self-care (01) ==
LOC: C.ER 11:02
DX: D57.1 Sickle-cell disease without crisis (principal); G89.29 Other chronic pain

== ENCOUNTER 2017-07-14 08:41 | Emergency (ER) | payer MEDICAID ==
[2017-07-14 08:41] VITALS: BMI 22.6
[2017-07-14 08:48] VITALS: O2SAT 98
[2017-07-14] MEDS ORDERED: Aluminum Hydroxide/Magnesium Hydroxide Susp (30 mL) PO STA (09:03)
[2017-07-14] MEDS ORDERED: Sodium Chloride 0.9% 500 ML IV ONE ×2 (09:03→09:19)
--- NOTE | 2017-07-14 09:18 | C.PDOC ---
History Of Present Illness 32 y/o female with PMHx of sickle cell presents to ED with complaints of generalized body pain and intermittent abdominal pain for 2 weeks constant for "couple of days". Patient states she saw her PMD Dr. Mike Louis who advised patient to come to ED if symptoms do not improve. Patient is a frequent ED visitor 4-5 times this month and is known to request Dilaudid. Patient denies fever, chills, nausea, vomiting or any other complaints at this time. Time Seen by Provider: 07/14/17 08:49 Chief Complaint (Nursing): Abdominal Pain History Per: Patient History/Exam Limitations: no limitations Onset/Duration Of Symptoms: Days Current Symptoms Are (Timing): Still Present Location Of Pain/Discomfort: Diffuse Past Medical History Reviewed: Historical Data, Nursing Documentation, Vital Signs Vital Signs: Last Vital Signs Temp 97.8 F 07/14/17 08:45 Pulse 81 07/14/17 08:45 Resp 18 07/14/17 08:45 BP 129/85 07/14/17 08:45 Pulse Ox 98 07/14/17 09:20 - Medical History PMH: Anemia, Bronchitis, Gall Bladder Disease (GB stone removed), Pneumonia, Sickle Cell Disease Surgical History: Cholecystectomy - [facility] Procedures INFLUENZA VACCINATION (03/16/12) INJECT/INFUSE ELECTROLYT (09/07/13) INJECT/INFUSE NEC (01/25/14) INSERT VAD RESERVOIR IN CHEST SUBCU/FASCIA, OPEN (05/31/17) INSERTION OF INFUSION DEV INTO SUP VENA CAVA, PERC APPROACH (01/25/17) NEBULIZER THERAPY (12/02/13) PACKED CELL TRANSFUSION (02/12/15) REMOVAL OF VAD FROM TRUNK SUBCU/FASCIA, OPEN APPROACH (04/15/16) TRANSFUSE NONAUT RED BLOOD CELLS IN PERIPH VEIN, PERC (04/17/17) VACCINATION NEC (08/22/13) Family History: States: No Known Family Hx - Social History Hx Tobacco Use: No Hx Alcohol Use: No Hx Substance Use: Yes ("marijuana" smokes) - Immunization History Hx Tetanus Toxoid Vaccination: Yes Hx Influenza Vaccination: Yes (2016) Hx Pneumococcal Vaccination: Yes (2014) Review Of Systems Constitutional: Negative for: Fever, Chills Gastrointestinal: Positive for: Abdominal Pain. Negative for: Nausea, Vomiting Skin: Negative for: Rash Neurological: Negative for: Weakness, Numbness Physical Exam - Physical Exam Appears: Non-toxic, No Acute Distress Skin: Warm, Dry, No Rash Head: Atraumatic, Normacephalic Eye(s): bilateral: Normal Inspection Oral Mucosa: Moist Neck: Normal ROM, Supple Cardiovascular: Rhythm Regular Respiratory: Normal Breath Sounds, No Rales, No Rhonchi, No Wheezing Gastrointestinal/Abdominal: Soft, Tenderness (Diffuse abdominal), No Guarding, No Rebound Back: No CVA Tenderness Extremity: Normal ROM, Capillary Refill (<2 seconds) Neurological/Psych: Oriented x3 ED Course And Treatment - Laboratory Results Result Diagrams: 07/14/17 09:38 07/14/17 09:38 O2 Sat by Pulse Oximetry: 98 (RA) Pulse Ox Interpretation: Normal Medical Decision Making Medical Decision Making: Plan: Blood work, Urine Culture Sent, Pepcid administered Progress: Patient was told no narcotics would be given Patient states she is to f/u with [facility] tomorrow. Spoke with Dr. Louis, agrees to give PO Dilaudid. Patient laughing and joking with her boyfriend. Will d/c now. Disposition Discussed With : Enzo Louis Counseled Patient/Family Regarding: Studies Performed, Need For Followup - Disposition Referrals: Enzo Louis MD [Staff Provider] - Disposition: HOME/ ROUTINE Disposition Time: 13:01 Condition: IMPROVED Instructions: Acute Abdominal Pain (ED) Forms: [facility] (Czech), General Discharge Instructions - POA Present On Arrival: None - Clinical Impression Clinical Impression: Sickle cell crisis, Abdominal pain - Scribe Statement The provider has reviewed the documentation as recorded by the Rosa Rodriguez All medical record entries made by the Zacheryibvalarie were at my direction and personally dictated by me. I have reviewed the chart and agree that the record accurately reflects my personal performance of the history, physical exam, medical decision making, and the department course for this patient. I have also personally directed, reviewed, and agree with the discharge instructions and disposition.
[2017-07-14] MEDS ORDERED: Aluminum Hydroxide/Magnesium Hydroxide Susp (30 mL) ONE (09:19)
[2017-07-14 09:42] LABS: BASO # 0.1 K/uL (0.0-0.2); BASO % 1.1 % (0.0-2.0); EOS # 0.2 K/uL (0.0-0.7); EOS % 1.4 % (0.0-4.0); HEMOGLOBIN 8.1 g/dL (11.0-16.0); LYMPH # 4.3 K/uL (1.0-4.3); LYMPH % 38.6 % (20.0-40.0); MEAN CELL VOLUME 90.3 fL (81.0-99.0); MEAN CORPUSCULAR HEMOGLOBIN 31.6 pg (27.0-31.0); MEAN PLATELET VOLUME 7.8 fL (7.2-11.7); MONO # 1.3 K/uL (0.0-0.8); MONO % 11.5 % (0.0-10.0); NEUT # 5.3 K/uL (1.8-7.0); NEUT % 47.4 % (50.0-75.0); NRBC % 0.1 % (0.0-2.0); RBC 2.57 Mil/uL (3.80-5.20); RED CELL DISTRIBUTION WIDTH 18.3 % (11.5-14.5); WHITE BLOOD COUNT 11.1 K/uL (4.8-10.8)
[2017-07-14 10:00] LABS: BARBITURATES, UR NEGATIVE (NEGATIVE); BENZODIAZEPINES, UR NEGATIVE (NEGATIVE); OPIATES, UR NEGATIVE (NEGATIVE); PHENCYCLIDINE, UR NEGATIVE (NEGATIVE)
[2017-07-14 10:01] LABS: ALB/GLOB RATIO 1.2 (1.0-2.1); ALBUMIN 3.5 g/dL (3.5-5.0); ALT/SGPT 163 U/L (9-52); AST/SGOT 78 U/L (14-36); BLOOD UREA NITROGEN 12 mg/dL (7-17); CALCIUM 8.5 mg/dl (8.6-10.4); GFR AFRICAN-AMERICAN > 60; GFR NON-AFRICAN AMERICAN > 60; LIPASE 64 U/L (23-300)
[2017-07-14 11:40] LABS: SQUAMOUS EPITHIAL < 1 /hpf (0-5); URINE BILIRUBIN NEGATIVE (NEGATIVE); URINE BLOOD NEGATIVE (NEGATIVE); URINE CLARITY Clear (Clear); URINE COLOR Straw (YELLOW); URINE GLUCOSE (UA) NORMAL (Normal); URINE LEUKOCYTE ESTERASE NEG Leu/uL (Negative); URINE NITRATE NEGATIVE (NEGATIVE); URINE PROTEIN NEGATIVE (NEGATIVE); URINE UROBILINOGEN NORMAL mg/dL (0.2-1.0)
[2017-07-14 13:08] VITALS: BP 133/76; PULSE 82; RESP 20; TEMP 98.9
== END 2017-07-14 13:53 | disposition home or self-care (01) ==
LOC: C.ER 08:41
DX: D57.00 Hb-SS disease with crisis, unspecified (principal); R10.9 Unspecified abdominal pain
CPT/HCPCS: 80053; 80324; 80345; 80346; 80349; 80353; 80358; 80361; 81001; 83690; 83992; 84703; 85025; 87086; 96374; 99285; J7040

== ENCOUNTER 2017-07-15 09:38 | Emergency (ER) | payer MEDICAID ==
[2017-07-15 09:38] VITALS: BMI 22.6
--- NOTE | 2017-07-15 10:17 | C.PDOC ---
History Of Present Illness 32-year-old female, PMHx includes sickle cell disease, presents to the emergency department with complaints of abdominal and diffuse body pain. She denies chest pain, SOB, fever/chills, cough, vomiting, diarrhea, dysuria. Time Seen by Provider: 07/15/17 10:02 Chief Complaint (Nursing): Pain, Chronic History Per: Patient History/Exam Limitations: no limitations Onset/Duration Of Symptoms: Days Current Symptoms Are (Timing): Still Present Severity: Moderate Reports Recently: Seen In ED Past Medical History Reviewed: Historical Data, Nursing Documentation, Vital Signs Vital Signs: Last Vital Signs Temp 97.5 F L 07/15/17 11:30 Pulse 71 07/15/17 11:30 Resp 16 07/15/17 11:30 BP 115/68 07/15/17 11:30 Pulse Ox 98 07/15/17 11:30 - Medical History PMH: Anemia, Bronchitis, Gall Bladder Disease (GB stone removed), Pneumonia, Sickle Cell Disease Surgical History: Cholecystectomy - [facility] Procedures INFLUENZA VACCINATION (03/16/12) INJECT/INFUSE ELECTROLYT (09/07/13) INJECT/INFUSE NEC (01/25/14) INSERT VAD RESERVOIR IN CHEST SUBCU/FASCIA, OPEN (05/31/17) INSERTION OF INFUSION DEV INTO SUP VENA CAVA, PERC APPROACH (01/25/17) NEBULIZER THERAPY (12/02/13) PACKED CELL TRANSFUSION (02/12/15) REMOVAL OF VAD FROM TRUNK SUBCU/FASCIA, OPEN APPROACH (04/15/16) TRANSFUSE NONAUT RED BLOOD CELLS IN PERIPH VEIN, PERC (04/17/17) VACCINATION NEC (08/22/13) Family History: States: No Known Family Hx - Social History Hx Tobacco Use: No Hx Alcohol Use: No Hx Substance Use: Yes ("marijuana" smokes) - Immunization History Hx Tetanus Toxoid Vaccination: Yes Hx Influenza Vaccination: Yes (2017) Hx Pneumococcal Vaccination: Yes (2014) Review Of Systems Except As Marked, All Systems Reviewed And Found Negative. Constitutional: Positive for: Malaise, Other (body pain). Negative for: Fever Cardiovascular: Negative for: Chest Pain, Palpitations Respiratory: Negative for: Cough, Shortness of Breath Gastrointestinal: Positive for: Abdominal Pain. Negative for: Nausea, Vomiting , Diarrhea Genitourinary: Negative for: Dysuria, Hematuria Musculoskeletal: Negative for: Back Pain Skin: Negative for: Rash Neurological: Negative for: Weakness, Numbness Physical Exam - Physical Exam Appears: Well, Non-toxic, No Acute Distress Skin: Warm, Dry, No Rash Eye(s): bilateral: Normal Inspection Oral Mucosa: Moist Neck: Normal, Normal ROM Cardiovascular: Rhythm Regular Respiratory: Normal Breath Sounds, No Rales, No Rhonchi, No Wheezing Gastrointestinal/Abdominal: Normal Exam, Bowel Sounds, Soft, No Tenderness Extremity: Normal ROM Neurological/Psych: Oriented x3 Gait: Steady ED Course And Treatment O2 Sat by Pulse Oximetry: 99 (RA) Pulse Ox Interpretation: Normal Progress Note: Patient given PO sickle cell protocol meds- PO Dilaudid and Benadryl. Upreg ordered and reviewed, was (-). Reevaluation Time: 11:15 Reassessment Condition: Improved (Patient reassessed, is resting comfortably, states she feels better and would like to be discharged home. She wasi instructed to follow up with PMD in 1-2 days, and understands she should return to ED if symptoms worsen.) Disposition Counseled Patient/Family Regarding: Diagnosis, Need For Followup - Disposition Referrals: Enzo Louis MD [Staff Provider] - Disposition: HOME/ ROUTINE Disposition Time: 11:20 Condition: STABLE Instructions: Sickle Cell Anemia (DC) Forms: [facility] (Citizen Of [place]) Print Language: YORUBA - Clinical Impression Clinical Impression: Sickle cell disease - Scribe Statement The provider has reviewed the documentation as recorded by the Scribe (Anika Shearer) All medical record entries made by the Scribe were at my direction and personally dictated by me. I have reviewed the chart and agree that the record accurately reflects my personal performance of the history, physical exam, medical decision making, and the department course for this patient. I have also personally directed, reviewed, and agree with the discharge instructions and disposition.
[2017-07-15 10:20] VITALS: RESP 16
[2017-07-15] MEDS ORDERED: DiphenhydrAMINE 12.5 mg/5 ml LIQ UD (5 ml) PO STA (10:38)
[2017-07-15] MEDS ORDERED: DiphenhydrAMINE 12.5 mg/5 ml LIQ UD (5 ml) ONE (10:47)
[2017-07-15 11:30] VITALS: BP 115/68; PULSE 71; TEMP 97.5
[2017-07-28 07:42] VITALS: O2SAT 99
== END 2017-07-15 11:30 | disposition home or self-care (01) ==
LOC: C.ER 09:38
DX: D57.1 Sickle-cell disease without crisis (principal)

== ENCOUNTER 2017-07-18 08:26 | Emergency (ER) | payer MEDICAID ==
[2017-07-18 08:26] VITALS: BMI 22.6
[2017-07-18 08:41] VITALS: RESP 18
--- NOTE | 2017-07-18 09:00 | C.PDOC ---
History Of Present Illness 32 year old female, with PMHx of sickle cell disease, presents to the emergency department with complaints of abdominal pain and diffuse body aches. Denies chest pain, SOB, fever or chills. Patient has a Hx of multiple visits for same complaint. Pt is requesting blood work, however, pt recently had blood work done on 07/14/17. Time Seen by Provider: 07/18/17 08:40 Chief Complaint (Nursing): Pain, Chronic History Per: Patient History/Exam Limitations: no limitations Severity: Mild Recent travel outside of the [place]: No Past Medical History Reviewed: Historical Data, Nursing Documentation, Vital Signs Vital Signs: Last Vital Signs Temp 97.6 F 07/18/17 10:59 Pulse 61 07/18/17 10:59 Resp 18 07/18/17 10:59 BP 114/75 07/18/17 10:59 Pulse Ox 100 07/18/17 10:59 - Medical History PMH: Anemia, Bronchitis, Gall Bladder Disease (GB stone removed), Pneumonia, Sickle Cell Disease Surgical History: Cholecystectomy - [facility] Procedures INFLUENZA VACCINATION (03/16/12) INJECT/INFUSE ELECTROLYT (09/07/13) INJECT/INFUSE NEC (01/25/14) INSERT VAD RESERVOIR IN CHEST SUBCU/FASCIA, OPEN (05/31/17) INSERTION OF INFUSION DEV INTO SUP VENA CAVA, PERC APPROACH (01/25/17) NEBULIZER THERAPY (12/02/13) PACKED CELL TRANSFUSION (02/12/15) REMOVAL OF VAD FROM TRUNK SUBCU/FASCIA, OPEN APPROACH (04/15/16) TRANSFUSE NONAUT RED BLOOD CELLS IN PERIPH VEIN, PERC (04/17/17) VACCINATION NEC (08/22/13) Family History: States: Unknown Family Hx - Social History Hx Tobacco Use: No Hx Alcohol Use: No Hx Substance Use: Yes ("marijuana" smokes) - Immunization History Hx Tetanus Toxoid Vaccination: Yes Hx Influenza Vaccination: Yes (2016) Hx Pneumococcal Vaccination: Yes (2014) Review Of Systems Except As Marked, All Systems Reviewed And Found Negative. Constitutional: Positive for: Other (body aches). Negative for: Fever, Chills Cardiovascular: Negative for: Chest Pain, Palpitations Respiratory: Negative for: Cough, Shortness of Breath Gastrointestinal: Positive for: Abdominal Pain Physical Exam - Physical Exam Appears: Non-toxic, No Acute Distress Skin: Normal Color, Warm, Dry Head: Atraumatic, Normacephalic Eye(s): bilateral: Normal Inspection Oral Mucosa: Moist Neck: Normal ROM, Supple Chest: Symmetrical Cardiovascular: Rhythm Regular, No Murmur Respiratory: Normal Breath Sounds, No Rales, No Rhonchi, No Wheezing Gastrointestinal/Abdominal: Soft, No Tenderness Extremity: Normal ROM, No Deformity Neurological/Psych: Oriented x3, Normal Speech Gait: Steady ED Course And Treatment ECG: Interpreted By Me ECG Rhythm: Sinus Rhythm Rate From EC O2 Sat by Pulse Oximetry: 99 (RA) Pulse Ox Interpretation: Normal Progress Note: Treated with dilaudid 8 mg PO. Patient texting in no distress. requesting additional pain medication. Treated with dilaudid 4 mg PO. Talking with visitor in no distress. Discharged in stable condition Reassessment Condition: Improved Medical Decision Making Medical Decision Making: Plan: EKG Dilaudid Disposition Counseled Patient/Family Regarding: Diagnosis, Need For Followup - Disposition Referrals: Enzo Louis MD [Staff Provider] - Disposition: HOME/ ROUTINE Disposition Time: 11:00 Condition: STABLE Additional Instructions: Return to ED if any increase symptoms Instructions: Chronic Pain (ED) Forms: [email or web address] (Belarusian) - POA Present On Arrival: None - Clinical Impression Clinical Impression: Chronic pain - PA / PIPE FITTER / Resident Statement MD/DO has reviewed & agrees with the documentation as recorded. - Scribe Statement The provider has reviewed the documentation as recorded by the Scribe Annmarie Louis All medical record entries made by the Scribe were at my direction and personally dictated by me. I have reviewed the chart and agree that the record accurately reflects my personal performance of the history, physical exam, medical decision making, and the department course for this patient. I have also personally directed, reviewed, and agree with the discharge instructions and disposition.
[2017-07-18 10:59] VITALS: BP 114/75; PULSE 61; TEMP 97.6
[2017-07-18 16:43] VITALS: O2SAT 99
== END 2017-07-18 11:10 | disposition home or self-care (01) ==
LOC: C.ER 08:26
DX: G89.29 Other chronic pain (principal); D57.1 Sickle-cell disease without crisis

== ENCOUNTER 2017-07-19 23:19 | Inpatient (IN) | payer MEDICAID ==
[2017-07-19 23:19] VITALS: BMI 22.6
--- NOTE | 2017-07-20 00:17 | C.PDOC ---
History Of Present Illness Patient presents to ED with complaints of generalized body pains and states she requires pain meds. Upon observation, patient does not look to be in any acute distress. She denies any fever, chills, nausea or vomiting. No other complaints. Time Seen by Provider: 07/20/17 00:17 Chief Complaint (Nursing): Pain, Chronic History Per: Patient History/Exam Limitations: no limitations Onset/Duration Of Symptoms: Persistent Current Symptoms Are (Timing): Still Present Severity: Moderate Pain Scale Rating Of: 4 Reports Recently: Seen In ED, Treated By A Physician, Hospitalized Recent travel outside of the [place]: No Additional History Per: Patient Past Medical History Reviewed: Historical Data, Nursing Documentation, Vital Signs Vital Signs: Last Vital Signs Temp 98 F 07/20/17 01:44 Pulse 82 07/20/17 01:44 Resp 18 07/20/17 01:44 BP 130/78 07/20/17 01:44 Pulse Ox 98 07/20/17 01:44 - Medical History PMH: Anemia, Bronchitis, Gall Bladder Disease (GB stone removed), Pneumonia, Sickle Cell Disease Surgical History: Cholecystectomy - [facility] Procedures INFLUENZA VACCINATION (03/16/12) INJECT/INFUSE ELECTROLYT (09/07/13) INJECT/INFUSE NEC (01/25/14) INSERT VAD RESERVOIR IN CHEST SUBCU/FASCIA, OPEN (05/31/17) INSERTION OF INFUSION DEV INTO SUP VENA CAVA, PERC APPROACH (01/25/17) NEBULIZER THERAPY (12/02/13) PACKED CELL TRANSFUSION (02/12/15) REMOVAL OF VAD FROM TRUNK SUBCU/FASCIA, OPEN APPROACH (04/15/16) TRANSFUSE NONAUT RED BLOOD CELLS IN PERIPH VEIN, PERC (04/17/17) VACCINATION NEC (08/22/13) Family History: States: Unknown Family Hx - Social History Hx Tobacco Use: No Hx Alcohol Use: No Hx Substance Use: Yes ("marijuana" smokes) - Immunization History Hx Tetanus Toxoid Vaccination: Yes Hx Influenza Vaccination: Yes (2016) Hx Pneumococcal Vaccination: Yes (2014) Review Of Systems Constitutional: Positive for: Other (bodyaches). Negative for: Fever, Chills Eyes: Negative for: Vision Change Cardiovascular: Negative for: Chest Pain Respiratory: Negative for: Shortness of Breath Gastrointestinal: Negative for: Nausea, Vomiting Genitourinary: Negative for: Dysuria Musculoskeletal: Negative for: Back Pain Skin: Negative for: Rash Neurological: Negative for: Weakness Psych: Negative for: Anxiety Physical Exam - Physical Exam Appears: Non-toxic Skin: Warm, Dry Head: Normacephalic Eye(s): bilateral: Normal Inspection Oral Mucosa: Moist Neck: Normal ROM, Supple Chest: Symmetrical, Other (catheter/port r chest) Cardiovascular: Rhythm Regular Respiratory: No Rales, No Rhonchi, No Wheezing Gastrointestinal/Abdominal: Soft, No Tenderness, No Distention, No Guarding Back: No CVA Tenderness Extremity: Normal ROM Extremity: Bilateral: Atraumatic Neurological/Psych: Oriented x3 Gait: Steady ED Course And Treatment - Laboratory Results Result Diagrams: 07/20/17 00:58 07/20/17 00:58 O2 Sat by Pulse Oximetry: 96 (RA) Pulse Ox Interpretation: Normal Disposition Discussed With DrMeagan: Patricio Escalante Comment: accepted the pt on his service and took over the care at 2AM Doctor Will See Patient In The: Hospital Counseled Patient/Family Regarding: Studies Performed, Diagnosis - Disposition Disposition: HOSPITALIZED Disposition Time: 00:17 Condition: FAIR Forms: [facility] (Belgian) - POA Present On Arrival: None - Clinical Impression Clinical Impression: Sickle cell disease, Pain disorder, Sickle cell anemia - Scribe Statement The provider has reviewed the documentation as recorded by the Scribe (Nano Emmanuel) Provider Attestation: All medical record entries made by the Scribe were at my direction and personally dictated by me. I have reviewed the chart and agree that the record accurately reflects my personal performance of the history, physical exam, medical decision making, and the department course for this patient. I have also personally directed, reviewed, and agree with the discharge instructions and disposition. Decision To Admit - Pt Status Changed To: Hospital Disposition Of: Inpatient - Admit Certification Admit to Inpatient:: After my assessment, the patient will require hospitalization for at least two midnights. This is because of the severity of symptoms shown, intensity of services needed, and/or the medical risk in this patient being treated as an outpatient. - InPatient: Physician Admission Certification: I certify that this patient requires 2 or more midnights of care for the following reason:: After my assessment, the patient will require hospitalization for at least two midnights. This is because of the severity of symptoms shown, intensity of services needed, and/or the medical risk in this patient being treated as an outpatient. - . Bed Request Type: Regular Admitting Physician: Patricio Escalante Patient Diagnosis: Sickle cell disease, Pain disorder, Sickle cell anemia
[2017-07-20] MEDS ORDERED: Sodium Chloride 0.9% 1,000 ML IV ONE (00:30)
[2017-07-20 01:02] LABS: BASO # 0.2 K/uL (0.0-0.2); EOS # 0.4 K/uL (0.0-0.7); HEMOGLOBIN 7.5 g/dL (11.0-16.0)
[2017-07-20 01:03] LABS: SQUAMOUS EPITHIAL 1 /hpf (0-5); URINE BILIRUBIN NEGATIVE (NEGATIVE); URINE BLOOD NEGATIVE (NEGATIVE); URINE CLARITY Clear (Clear); URINE COLOR Yellow (YELLOW); URINE GLUCOSE (UA) NORMAL (Normal); URINE LEUKOCYTE ESTERASE NEG Leu/uL (Negative); URINE NITRATE NEGATIVE (NEGATIVE); URINE PROTEIN NEGATIVE (NEGATIVE)
[2017-07-20 01:17] LABS: BASO % 0.9 % (0.0-2.0); EOS % 2.2 % (0.0-4.0); LYMPH % 34.7 % (20.0-40.0); MEAN CORPUSCULAR HEMOGLOBIN 33.3 pg (27.0-31.0); MEAN CORPUSCULAR HGB CONC 35.8 g/dL (33.0-37.0); MEAN PLATELET VOLUME 8.1 fL (7.2-11.7); MONO # 1.2 K/uL (0.0-0.8); NEUT # 9.6 K/uL (1.8-7.0); NEUT % 55.2 % (50.0-75.0); NRBC % 1.4 % (0.0-2.0); RBC 2.25 Mil/uL (3.80-5.20); RED CELL DISTRIBUTION WIDTH 17.1 % (11.5-14.5); WHITE BLOOD COUNT 17.4 K/uL (4.8-10.8)
[2017-07-20 01:31] LABS: ALB/GLOB RATIO 1.2 (1.0-2.1); ALBUMIN 3.7 g/dL (3.5-5.0); ALT/SGPT 99 U/L (9-52); AST/SGOT 58 U/L (14-36); BLOOD UREA NITROGEN 17 mg/dL (7-17); CALCIUM 8.5 mg/dl (8.6-10.4); GFR AFRICAN-AMERICAN > 60; GFR NON-AFRICAN AMERICAN > 60
[2017-07-20] MEDS ORDERED: DiphenhydrAMINE 50 mg/ml Inj ONE (02:21)
[2017-07-20] MEDS: DiphenhydrAMINE 50 mg/ml Inj IVP PRN ×5 (02:25→20:43)
[2017-07-20] MEDS: Sodium Chloride 0.45% 1,000 ML IV SCH ×4 (03:19→20:49)
[2017-07-20 03:26] VITALS: RESP 20
--- NOTE | 2017-07-20 19:24 | CP.PCM.HP ---
Past Patient History - Infectious Disease Hx of Infectious Diseases: None - Tetanus Immunizations Tetanus Immunization: Up to Date - Past Medical History & Family History Past Medical History?: Yes - Past Social History Smoking Status: Never Smoked - CARDIAC Hx Cardiac Disorders: No - PULMONARY Hx Bronchitis: Yes Hx Pneumonia: Yes - NEUROLOGICAL Hx Neurological Disorder: No - HEENT Hx HEENT Problems: No - ENDOCRINE/METABOLIC Hx Endocrine Disorders: No - HEMATOLOGICAL/ONCOLOGICAL Hx Anemia: Yes Hx Sickle Cell Disease: Yes - INTEGUMENTARY Hx Dermatological Problems: No - MUSCULOSKELETAL/RHEUMATOLOGICAL Hx Falls: No - GASTROINTESTINAL Hx Gall Bladder Disease: Yes (GB stone removed) - PSYCHIATRIC Hx Substance Use: No - SURGICAL HISTORY Hx Cholecystectomy: Yes Other/Comment: s/p portacath insertion 05/2017 - ANESTHESIA Hx Anesthesia: Yes Hx Anesthesia Reactions: No Hx Malignant Hyperthermia: No Meds Allergies/Adverse Reactions: Allergies Allergy/AdvReac Type Severity Reaction Status Date / Time FISH Allergy Severe RASH Verified 07/19/17 23:28 oxycodone Allergy Severe RASH Verified 07/19/17 23:28 tramadol Allergy Severe RASH Verified 07/19/17 23:28 ketorolac Allergy Intermediate RASH Verified 07/19/17 23:28 Physical Exam - Constitutional Appears: Well - Head Exam Head Exam: ATRAUMATIC, NORMAL INSPECTION, NORMOCEPHALIC - Eye Exam Eye Exam: EOMI, Normal appearance, PERRL Pupil Exam: NORMAL ACCOMODATION, PERRL - ENT Exam ENT Exam: Mucous Membranes Moist, Normal Exam - Neck Exam Neck exam: Positive for: Normal Inspection - Respiratory Exam Respiratory Exam: Decreased Breath Sounds - Cardiovascular Exam Cardiovascular Exam: REGULAR RHYTHM, +S1, +S2 - GI/Abdominal Exam GI & Abdominal Exam: Diminished Bowel Sounds, Soft - Rectal Exam Rectal Exam: Deferred Results - Vital Signs Recent Vital Signs: Last Vital Signs Temp 98 F 07/20/17 15:00 Pulse 82 07/20/17 15:00 Resp 20 07/20/17 15:00 BP 121/78 07/20/17 15:00 Pulse Ox 99 07/20/17 15:00 - Labs Result Diagrams: 07/20/17 00:58 07/20/17 00:58 Labs: Laboratory Results - last 24 hr 07/20/17 07/20/17 07/20/17 00:58 00:58 00:58 WBC 17.4 H D RBC 2.25 L Hgb 7.5 L Hct 20.9 L MCV 93.0 D MCH 33.3 H MCHC 35.8 RDW 17.1 H Plt Count 294 MPV 8.1 Neut % (Auto) 55.2 Lymph % (Auto) 34.7 [place] % (Auto) 7.0 Eos % (Auto) 2.2 Baso % (Auto) 0.9 Neut # (Auto) 9.6 H Lymph # (Auto) 6.0 H [place] # (Auto) 1.2 H Eos # (Auto) 0.4 Baso # (Auto) 0.2 Retic Count 13.5 H D Sodium 141 Potassium 3.6 Chloride 103 Carbon Dioxide 27 Anion Gap 14 BUN 17 Creatinine 0.7 Est GFR ( Amer) > 60 Est GFR (Non-Af Amer) > 60 Random Glucose 101 Calcium 8.5 L Total Bilirubin 1.4 H AST 58 H D ALT 99 H D Alkaline Phosphatase 117 Total Protein 6.7 Albumin 3.7 Globulin 3.0 Albumin/Globulin Ratio 1.2 Urine Color Yellow Urine Clarity Clear Urine pH 6.0 Ur Specific [place] 1.013 Urine Protein Negative Urine Glucose (UA) Normal Urine Ketones Negative Urine Blood Negative Urine Nitrate Negative Urine Bilirubin Negative Urine Urobilinogen 4.0 H Ur Leukocyte Esterase Neg Urine WBC (Auto) < 1 Urine RBC (Auto) 1 Ur Squamous Epith Cells 1 Urine HCG, Qual 07/20/17 01:17 WBC RBC Hgb Hct MCV MCH MCHC RDW Plt Count MPV Neut % (Auto) Lymph % (Auto) [place] % (Auto) Eos % (Auto) Baso % (Auto) Neut # (Auto) Lymph # (Auto) [place] # (Auto) Eos # (Auto) Baso # (Auto) Retic Count Sodium Potassium Chloride Carbon Dioxide Anion Gap BUN Creatinine Est GFR ( Amer) Est GFR (Non-Af Amer) Random Glucose Calcium Total Bilirubin AST ALT Alkaline Phosphatase Total Protein Albumin Globulin Albumin/Globulin Ratio Urine Color Urine Clarity Urine pH Ur Specific [place] Urine Protein Urine Glucose (UA) Urine Ketones Urine Blood Urine Nitrate Urine Bilirubin Urine Urobilinogen Ur Leukocyte Esterase Urine WBC (Auto) Urine RBC (Auto) Ur Squamous Epith Cells Urine HCG, Qual Negative
--- NOTE | 2017-07-20 21:44 | CP.PCM.CON ---
History of Present Illness - History of Present Illness History of Present Illness: 32 year old female with a history of sickle cell anemia admitted with sickle cell pain crisis. The patient reports to increasing hip and rib pain which she attributes to being exacerbated by the change in weather. Her pain was not controlled by her oral pain regimen and came to the hospital. In the ER she continued to have pain despite pain medication and was admitted for further pain control. She denies fevers, chills, headache, shortness of breath , and chest pain. Her pain is diffuse in nature and consistent with prior sickle cell pain crisis. Past medical history: Sickle cell anemia. Past surgical history: Cholecystectomy, splenectomy, portacatheter placement. Family history: Father and sister has SS disease, mother and brother have sickle cell trait. Social history: Denies tobacco, alcohol, and illicit drug use. Allergies: Oxycodone, ketorolac. Review of systems: All remaining review of systems including HEENT, cardiovascular, respiratory, gastrointestinal, genitourinary, musculoskeletal, dermatologic, and neurologic are negative unless mentioned in the HPI. Past Patient History - Infectious Disease Hx of Infectious Diseases: None - Tetanus Immunizations Tetanus Immunization: Up to Date - Past Medical History & Family History Past Medical History?: Yes - Past Social History Smoking Status: Never Smoked - CARDIAC Hx Cardiac Disorders: No - PULMONARY Hx Bronchitis: Yes Hx Pneumonia: Yes - NEUROLOGICAL Hx Neurological Disorder: No - HEENT Hx HEENT Problems: No - ENDOCRINE/METABOLIC Hx Endocrine Disorders: No - HEMATOLOGICAL/ONCOLOGICAL Hx Anemia: Yes Hx Sickle Cell Disease: Yes - INTEGUMENTARY Hx Dermatological Problems: No - MUSCULOSKELETAL/RHEUMATOLOGICAL Hx Falls: No - GASTROINTESTINAL Hx Gall Bladder Disease: Yes (GB stone removed) - PSYCHIATRIC Hx Substance Use: No - SURGICAL HISTORY Hx Cholecystectomy: Yes Other/Comment: s/p portacath insertion 05/2017 - ANESTHESIA Hx Anesthesia: Yes Hx Anesthesia Reactions: No Hx Malignant Hyperthermia: No Meds Allergies/Adverse Reactions: Allergies Allergy/AdvReac Type Severity Reaction Status Date / Time FISH Allergy Severe RASH Verified 07/19/17 23:28 oxycodone Allergy Severe RASH Verified 07/19/17 23:28 tramadol Allergy Severe RASH Verified 07/19/17 23:28 ketorolac Allergy Intermediate RASH Verified 07/19/17 23:28 - Medications Medications: Current Medications Diphenhydramine HCl (Benadryl) 25 mg IVP Q4 PRN PRN Reason: with dilaudid Last Admin: 07/20/17 20:43 Dose: 25 mg Folic Acid (Folic Acid) 1 mg PO DAILY [facility] Last Admin: 07/20/17 14:24 Dose: 1 mg Hydromorphone HCl (Dilaudid) 2 mg IVP Q3H PRN PRN Reason: Pain, severe (8-10) Last Admin: 07/20/17 20:44 Dose: 2 mg Hydroxyurea (Hydrea) 500 mg PO DAILY [facility] Sodium Chloride (Sodium Chloride 0.45%) 1,000 mls @ 125 mls/hr IV .Q8H [facility] Last Admin: 07/20/17 20:49 Dose: 125 mls/hr Physical Exam - Head Exam Head Exam: ATRAUMATIC - Eye Exam Eye Exam: Normal appearance - ENT Exam ENT Exam: Mucous Membranes Dry - Respiratory Exam Respiratory Exam: NORMAL BREATHING PATTERN - Cardiovascular Exam Cardiovascular Exam: +S1, +S2 - GI/Abdominal Exam GI & Abdominal Exam: Normal Bowel Sounds - Extremities Exam Extremities exam: Positive for: normal inspection - Neurological Exam Neurological exam: Oriented x3 - Psychiatric Exam Psychiatric exam: Normal Affect, Normal Mood - Skin Skin Exam: Warm Results - Vital Signs Recent Vital Signs: Last Vital Signs Temp 98 F 07/20/17 15:00 Pulse 82 07/20/17 15:00 Resp 20 07/20/17 15:00 BP 121/78 07/20/17 15:00 Pulse Ox 99 07/20/17 15:00 - Labs Result Diagrams: 07/20/17 00:58 07/20/17 00:58 Labs: Laboratory Results - last 24 hr 07/20/17 07/20/17 07/20/17 00:58 00:58 00:58 WBC 17.4 H D RBC 2.25 L Hgb 7.5 L Hct 20.9 L MCV 93.0 D MCH 33.3 H MCHC 35.8 RDW 17.1 H Plt Count 294 MPV 8.1 Neut % (Auto) 55.2 Lymph % (Auto) 34.7 [place] % (Auto) 7.0 Eos % (Auto) 2.2 Baso % (Auto) 0.9 Neut # (Auto) 9.6 H Lymph # (Auto) 6.0 H [place] # (Auto) 1.2 H Eos # (Auto) 0.4 Baso # (Auto) 0.2 Retic Count 13.5 H D Sodium 141 Potassium 3.6 Chloride 103 Carbon Dioxide 27 Anion Gap 14 BUN 17 Creatinine 0.7 Est GFR ( Amer) > 60 Est GFR (Non-Af Amer) > 60 Random Glucose 101 Calcium 8.5 L Total Bilirubin 1.4 H AST 58 H D ALT 99 H D Alkaline Phosphatase 117 Total Protein 6.7 Albumin 3.7 Globulin 3.0 Albumin/Globulin Ratio 1.2 Urine Color Yellow Urine Clarity Clear Urine pH 6.0 Ur Specific [place] 1.013 Urine Protein Negative Urine Glucose (UA) Normal Urine Ketones Negative Urine Blood Negative Urine Nitrate Negative Urine Bilirubin Negative Urine Urobilinogen 4.0 H Ur Leukocyte Esterase Neg Urine WBC (Auto) < 1 Urine RBC (Auto) 1 Ur Squamous Epith Cells 1 Urine HCG, Qual 07/20/17 01:17 WBC RBC Hgb Hct MCV MCH MCHC RDW Plt Count MPV Neut % (Auto) Lymph % (Auto) [place] % (Auto) Eos % (Auto) Baso % (Auto) Neut # (Auto) Lymph # (Auto) [place] # (Auto) Eos # (Auto) Baso # (Auto) Retic Count Sodium Potassium Chloride Carbon Dioxide Anion Gap BUN Creatinine Est GFR ( Amer) Est GFR (Non-Af Amer) Random Glucose Calcium Total Bilirubin AST ALT Alkaline Phosphatase Total Protein Albumin Globulin Albumin/Globulin Ratio Urine Color Urine Clarity Urine pH Ur Specific [place] Urine Protein Urine Glucose (UA) Urine Ketones Urine Blood Urine Nitrate Urine Bilirubin Urine Urobilinogen Ur Leukocyte Esterase Urine WBC (Auto) Urine RBC (Auto) Ur Squamous Epith Cells Urine HCG, Qual Negative Assessment & Plan (1) Sickle cell pain crisis Assessment and Plan: IV fluids, pain meds, folic acid, 02 via [place] no current transfusion indication Status: Acute (2) Iron overload due to repeated red blood cell transfusions Assessment and Plan: minimize transfusion support outpatient chelation but patient does not f/u as outpatient Status: Acute (3) Leukocytosis Assessment and Plan: likely reactive to sickle cell Status: Acute (4) Sickle cell anemia Assessment and Plan: outpatient hydrea and folic acid Thank you for this interesting consult. Status: Acute
[2017-07-21] MEDS: DiphenhydrAMINE 50 mg/ml Inj IVP PRN ×5 (02:45→21:00)
[2017-07-21] MEDS: Sodium Chloride 0.45% 1,000 ML IV SCH ×4 (04:45→21:06)
[2017-07-21 06:55] LABS: BASO # 0.1 K/uL (0.0-0.2); BASO % 0.5 % (0.0-2.0); EOS # 0.4 K/uL (0.0-0.7); EOS % 2.9 % (0.0-4.0); HEMOGLOBIN 6.9 g/dL (11.0-16.0); LYMPH # 5.5 K/uL (1.0-4.3); LYMPH % 38.4 % (20.0-40.0); MEAN CELL VOLUME 93.5 fL (81.0-99.0); MEAN CORPUSCULAR HEMOGLOBIN 32.8 pg (27.0-31.0); MEAN CORPUSCULAR HGB CONC 35.1 g/dL (33.0-37.0); MEAN PLATELET VOLUME 8.5 fL (7.2-11.7); MONO # 0.8 K/uL (0.0-0.8); MONO % 5.5 % (0.0-10.0); NEUT # 7.5 K/uL (1.8-7.0); NEUT % 52.7 % (50.0-75.0); NRBC % 1.6 % (0.0-2.0); RBC 2.09 Mil/uL (3.80-5.20); RED CELL DISTRIBUTION WIDTH 16.7 % (11.5-14.5); WHITE BLOOD COUNT 14.2 K/uL (4.8-10.8)
--- NOTE | 2017-07-21 09:41 | CP.PCM.PN ---
Subjective - Date & Time of Evaluation Date of Evaluation: 07/21/17 Time of Evaluation: 06:06 - Subjective Subjective: Medicine Progress Note Patient seen and examined in no apparent acute distress. Patient states that she presented due to sickle cell crisis. Her pain began on Thursday, foru days earlier. Patient stated that it exacerbated up through the weekend until she was forced to come in for further evaluation. She states that she came to the ER Thursday night. She states taht she feels most of the pain in her joints. She states that the medication does help the pain; however so she likes to use benadryl to help with her symptoms. She denies subjective fevers or chills, nausea, vomiting or diarrhea at this time. PMHx: Sickle cell anemia. PSHx: Cholecystectomy in 2007, splenectomy in 2008, portacatheter placement. FamHx: Father and sister have sickle cell disease, mother and brother have sickle cell trait;maternal grandmother had breast cancer, paternal grandmother had lung cancer SocialHx: Occasional marijuana use in the past; Denies tobacco or alcohol use. Allergies: Oxycodone, ketorolac and tramadol. Fish ( not including shellfish). Patient develops hives to all the aforementioned Objective - Vital Signs/Intake and Output Vital Signs (last 24 hours): Temp Pulse Resp BP Pulse Ox 98.5 F 79 20 114/73 96 07/21/17 08:53 07/21/17 08:53 07/21/17 08:53 07/21/17 08:53 07/21/17 08:53 Intake and Output: 07/21/17 07/21/17 06:59 18:59 Intake Total 2660 Balance 2660 - Medications Medications: Current Medications Diphenhydramine HCl (Benadryl) 25 mg IVP Q4 PRN PRN Reason: with dilaudid Last Admin: 07/21/17 08:57 Dose: 25 mg Folic Acid (Folic Acid) 1 mg PO DAILY [facility] Last Admin: 07/21/17 09:01 Dose: 1 mg Hydromorphone HCl (Dilaudid) 2 mg IVP Q3H PRN PRN Reason: Pain, severe (8-10) Last Admin: 07/21/17 08:57 Dose: 2 mg Hydroxyurea (Hydrea) 500 mg PO DAILY [facility] Last Admin: 07/21/17 09:02 Dose: 500 mg Sodium Chloride (Sodium Chloride 0.45%) 1,000 mls @ 125 mls/hr IV .Q8H [facility] Last Admin: 07/21/17 04:45 Dose: 125 mls/hr - Labs Labs: 07/21/17 06:42 07/20/17 00:58 - Constitutional Appears: Non-toxic, No Acute Distress - Head Exam Head Exam: ATRAUMATIC, NORMAL INSPECTION - Eye Exam Eye Exam: EOMI, Normal appearance, PERRL - ENT Exam ENT Exam: Mucous Membranes Moist - Neck Exam Neck Exam: Full ROM - Respiratory Exam Respiratory Exam: NORMAL BREATHING PATTERN. absent: Wheezes - Cardiovascular Exam Cardiovascular Exam: +S1, +S2, Murmur - GI/Abdominal Exam GI & Abdominal Exam: Soft, Normal Bowel Sounds - Extremities Exam Extremities Exam: Full ROM, Normal Capillary Refill. absent: Joint Swelling - Back Exam Back Exam: Full ROM - Neurological Exam Neurological Exam: Alert, Awake, Oriented x3 - Psychiatric Exam Psychiatric exam: Normal Affect, Normal Mood - Skin Skin Exam: Dry, Normal Color, Warm Assessment and Plan - Assessment and Plan (Free Text) Assessment: Sickle cell pain crisis Assessment and Plan: Patient on Hydroxyurea and Folic acid IV fluids,Dilaudid, folic acid, oxygen therapy with sats above 92 Patient should try to eat and stay hydrated Hgb 6.9. Transfusions are generally not always indicated in acute pain crises; however so this is a drop from patient's baseline F/U HemeOnc (Dr. Portillo) recommendations Status: Acute Iron overload due to repeated red blood cell transfusions Assessment and Plan: Hgb 6.9. Patient would benefit from outpatient chelation but patient does not f/u as outpatient Status: Acute Leukocytosis Assessment and Plan: Decreasing Likely reactive to sickle cell Status: Acute Prophylactic Measure Assessment and Plan: Influenza and Pneumonia vaccines SCDs Protonix 40 mg PO daily Discussed with attending. Management and planning per Dr. Louis.
[2017-07-21] MEDS ORDERED: Pantoprazole 40 mg EC Tab PO SCH (10:00)
--- NOTE | 2017-07-21 16:26 | CP.PCM.PN ---
Subjective - Date & Time of Evaluation Date of Evaluation: 07/21/17 Time of Evaluation: 09:40 - Subjective Subjective: clinically same Objective - Vital Signs/Intake and Output Vital Signs (last 24 hours): Temp Pulse Resp BP Pulse Ox 98.5 F 79 20 114/73 96 07/21/17 08:53 07/21/17 08:53 07/21/17 08:53 07/21/17 08:53 07/21/17 08:53 Intake and Output: 07/21/17 07/21/17 06:59 18:59 Intake Total 2660 Balance 2660 - Medications Medications: Current Medications Diphenhydramine HCl (Benadryl) 25 mg IVP Q3H PRN PRN Reason: with dilaudid Last Admin: 07/21/17 14:51 Dose: 25 mg Folic Acid (Folic Acid) 1 mg PO DAILY [facility] Last Admin: 07/21/17 09:01 Dose: 1 mg Hydromorphone HCl (Dilaudid) 2 mg IVP Q3H PRN PRN Reason: Pain, severe (8-10) Last Admin: 07/21/17 14:52 Dose: 2 mg Hydroxyurea (Hydrea) 500 mg PO DAILY [facility] Last Admin: 07/21/17 09:02 Dose: 500 mg Sodium Chloride (Sodium Chloride 0.45%) 1,000 mls @ 125 mls/hr IV .Q8H [facility] Last Admin: 07/21/17 14:05 Dose: Not Given - Labs Labs: 07/21/17 06:42 07/20/17 00:58 - Constitutional Appears: Well - Head Exam Head Exam: ATRAUMATIC, NORMAL INSPECTION, NORMOCEPHALIC - Eye Exam Eye Exam: EOMI, Normal appearance, PERRL Pupil Exam: NORMAL ACCOMODATION, PERRL - ENT Exam ENT Exam: Mucous Membranes Moist, Normal Exam - Neck Exam Neck Exam: Full ROM, Normal Inspection. absent: Lymphadenopathy - Respiratory Exam Respiratory Exam: Decreased Breath Sounds - Cardiovascular Exam Cardiovascular Exam: REGULAR RHYTHM, +S1, +S2 - GI/Abdominal Exam GI & Abdominal Exam: Soft, Diminished Bowel Sounds - Rectal Exam Rectal Exam: Deferred
--- NOTE | 2017-07-21 22:14 | CP.PCM.PN ---
Subjective - Date & Time of Evaluation Date of Evaluation: 07/21/17 Time of Evaluation: 19:00 - Subjective Subjective: Has pain, trying to drink more. Objective - Vital Signs/Intake and Output Vital Signs (last 24 hours): Temp Pulse Resp BP Pulse Ox 98.1 F 83 20 117/62 96 07/21/17 15:00 07/21/17 15:00 07/21/17 15:00 07/21/17 15:00 07/21/17 15:00 - Medications Medications: Current Medications Diphenhydramine HCl (Benadryl) 25 mg IVP Q3H PRN PRN Reason: with dilaudid Last Admin: 07/21/17 21:00 Dose: 25 mg Folic Acid (Folic Acid) 1 mg PO DAILY [facility] Last Admin: 07/21/17 09:01 Dose: 1 mg Hydromorphone HCl (Dilaudid) 2 mg IVP Q3H PRN PRN Reason: Pain, severe (8-10) Last Admin: 07/21/17 21:02 Dose: 2 mg Hydroxyurea (Hydrea) 500 mg PO DAILY [facility] Last Admin: 07/21/17 09:02 Dose: 500 mg Sodium Chloride (Sodium Chloride 0.45%) 1,000 mls @ 125 mls/hr IV .Q8H [facility] Last Admin: 07/21/17 21:06 Dose: 125 mls/hr - Labs Labs: 07/21/17 06:42 07/20/17 00:58 - Head Exam Head Exam: ATRAUMATIC - Eye Exam Eye Exam: Normal appearance - ENT Exam ENT Exam: Mucous Membranes Dry - Respiratory Exam Respiratory Exam: NORMAL BREATHING PATTERN - Cardiovascular Exam Cardiovascular Exam: +S1, +S2 - GI/Abdominal Exam GI & Abdominal Exam: Normal Bowel Sounds - Extremities Exam Extremities Exam: Normal Inspection Assessment and Plan (1) Sickle cell pain crisis Assessment & Plan: IV fluids, pain meds, folic acid, 02 via [place] no current transfusion indication Status: Acute (2) Iron overload due to repeated red blood cell transfusions Assessment & Plan: minimize transfusion support outpatient chelation Status: Acute (3) Leukocytosis Assessment & Plan: reactive to sickle cell Status: Acute (4) Sickle cell anemia Assessment & Plan: folic acid and hydrea Status: Acute
[2017-07-22] MEDS: DiphenhydrAMINE 50 mg/ml Inj IVP PRN ×7 (03:37→21:55)
[2017-07-22] MEDS: Sodium Chloride 0.45% 1,000 ML IV SCH ×5 (04:00→22:49)
[2017-07-22 07:37] LABS: BASO # 0.1 K/uL (0.0-0.2); EOS # 0.4 K/uL (0.0-0.7); LYMPH # 4.7 K/uL (1.0-4.3)
[2017-07-22 07:42] LABS: BASO % 0.9 % (0.0-2.0); EOS % 3.7 % (0.0-4.0); HEMOGLOBIN 7.1 g/dL (11.0-16.0); LYMPH % 44.2 % (20.0-40.0); MEAN CELL VOLUME 93.9 fL (81.0-99.0); MEAN CORPUSCULAR HEMOGLOBIN 32.3 pg (27.0-31.0); MEAN CORPUSCULAR HGB CONC 34.4 g/dL (33.0-37.0); MEAN PLATELET VOLUME 8.1 fL (7.2-11.7); MONO # 0.7 K/uL (0.0-0.8); MONO % 6.8 % (0.0-10.0); NEUT # 4.7 K/uL (1.8-7.0); NEUT % 44.4 % (50.0-75.0); NRBC % 0.9 % (0.0-2.0); RBC 2.21 Mil/uL (3.80-5.20); RED CELL DISTRIBUTION WIDTH 16.5 % (11.5-14.5); WHITE BLOOD COUNT 10.7 K/uL (4.8-10.8)
[2017-07-22 08:21] LABS: BLOOD UREA NITROGEN 11 mg/dL (7-17); CALCIUM 8.4 mg/dl (8.6-10.4); GFR AFRICAN-AMERICAN > 60; GFR NON-AFRICAN AMERICAN > 60
--- NOTE | 2017-07-22 10:33 | CP.PCM.PN ---
Subjective - Date & Time of Evaluation Date of Evaluation: 07/22/17 Time of Evaluation: 10:30 - Subjective Subjective: PGY2 progress note for Dr. Louis Pt seen and examined at bedside. No acute events overnight. Pt states that earlier this morning, she had diffuse body pains. After receiving pain medication, her pain improved considerably. Denies having any F/C, CP, SOB, abd pain, N/V/D/C. Pt tolerating diet. Pt c/o B/L LE swelling L>R. Denies calf pain or tenderness. 12 point ROS negative except for above mentioned. Pt seen walking around hallway without difficulty. Objective - Vital Signs/Intake and Output Vital Signs (last 24 hours): Temp Pulse Resp BP Pulse Ox 98.2 F 84 20 111/72 97 07/22/17 08:00 07/22/17 08:00 07/22/17 08:00 07/22/17 08:00 07/22/17 08:00 Intake and Output: 07/22/17 07/22/17 06:59 18:59 Intake Total 4125 Balance 4125 - Medications Medications: Current Medications Diphenhydramine HCl (Benadryl) 25 mg IVP Q3H PRN PRN Reason: with dilaudid Last Admin: 07/22/17 09:41 Dose: 25 mg Folic Acid (Folic Acid) 1 mg PO DAILY [facility] Last Admin: 07/22/17 09:46 Dose: 1 mg Hydromorphone HCl (Dilaudid) 2 mg IVP Q3H PRN PRN Reason: Pain, severe (8-10) Last Admin: 07/22/17 09:41 Dose: 2 mg Hydroxyurea (Hydrea) 500 mg PO DAILY [facility] Last Admin: 07/22/17 09:46 Dose: 500 mg Sodium Chloride (Sodium Chloride 0.45%) 1,000 mls @ 125 mls/hr IV .Q8H [facility] Last Admin: 07/22/17 07:08 Dose: 125 mls/hr - Labs Labs: 07/22/17 07:17 07/22/17 07:17 - Constitutional Appears: Non-toxic, No Acute Distress - Head Exam Head Exam: ATRAUMATIC - ENT Exam ENT Exam: Mucous Membranes Moist - Respiratory Exam Respiratory Exam: Clear to Ausculation Bilateral. absent: Accessory Muscle Use , Rhonchi, Wheezes, Respiratory Distress - Cardiovascular Exam Cardiovascular Exam: REGULAR RHYTHM, +S1, +S2. absent: Gallop, Rubs, Murmur - GI/Abdominal Exam GI & Abdominal Exam: Soft, Normal Bowel Sounds. absent: Distended, Firm, Guarding, Rigid, Tenderness, Organomegaly - Extremities Exam Extremities Exam: absent: Pedal Edema, Tenderness - Neurological Exam Neurological Exam: Alert, Awake, Oriented x3 - Psychiatric Exam Psychiatric exam: Normal Affect, Normal Mood - Skin Skin Exam: Dry, Intact, Normal Color, Warm Assessment and Plan - Assessment and Plan (Free Text) Assessment: Sickle cell pain crisis Hgb this am is 7.1. Retic count is 15. At this time, no PRBC transfusion necessary. Will continue to trend retic count over hospital stay Patient on Hydroxyurea and Folic acid IV fluids with .45 NS Dilaudid 2 mg IVP Q3 prn Benadryl 25 mg IVP q3 oxygen therapy with sats above 92 Patient should try to eat and stay hydrated F/U HemeOnc (Dr. Portillo) recommendations Iron overload due to repeated red blood cell transfusions Patient would benefit from outpatient chelation but patient does not f/u as outpatient Leukocytosis Improving Likely reactive to sickle cell LE swelling Will check LE dopplers Prophylactic Measure Influenza and Pneumonia vaccines SCDs. Protonix 40 mg PO daily Discussed with attending. Management and planning per Dr. Louis.
--- NOTE | 2017-07-22 12:45 | CP.PCM.PN ---
Subjective - Date & Time of Evaluation Date of Evaluation: 07/22/17 Time of Evaluation: 08:00 - Subjective Subjective: clinically same Objective - Vital Signs/Intake and Output Vital Signs (last 24 hours): Temp Pulse Resp BP Pulse Ox 98.2 F 84 20 111/72 97 07/22/17 08:00 07/22/17 08:00 07/22/17 08:00 07/22/17 08:00 07/22/17 08:00 Intake and Output: 07/22/17 07/22/17 06:59 18:59 Intake Total 4125 Balance 4125 - Medications Medications: Current Medications Diphenhydramine HCl (Benadryl) 25 mg IVP Q3H PRN PRN Reason: with dilaudid Last Admin: 07/22/17 12:36 Dose: 25 mg Folic Acid (Folic Acid) 1 mg PO DAILY [facility] Last Admin: 07/22/17 09:46 Dose: 1 mg Hydromorphone HCl (Dilaudid) 2 mg IVP Q3H PRN PRN Reason: Pain, severe (8-10) Last Admin: 07/22/17 12:37 Dose: 2 mg Hydroxyurea (Hydrea) 500 mg PO DAILY [facility] Last Admin: 07/22/17 09:46 Dose: 500 mg Sodium Chloride (Sodium Chloride 0.45%) 1,000 mls @ 125 mls/hr IV .Q8H [facility] Last Admin: 07/22/17 12:41 Dose: Not Given - Labs Labs: 07/22/17 07:17 07/22/17 07:17 - Constitutional Appears: Well - Head Exam Head Exam: ATRAUMATIC, NORMAL INSPECTION, NORMOCEPHALIC - Eye Exam Eye Exam: EOMI, Normal appearance, PERRL Pupil Exam: NORMAL ACCOMODATION, PERRL - ENT Exam ENT Exam: Mucous Membranes Moist, Normal Exam - Neck Exam Neck Exam: Full ROM, Normal Inspection. absent: Lymphadenopathy - Respiratory Exam Respiratory Exam: Decreased Breath Sounds - Cardiovascular Exam Cardiovascular Exam: REGULAR RHYTHM, +S1, +S2 - GI/Abdominal Exam GI & Abdominal Exam: Soft, Diminished Bowel Sounds - Rectal Exam Rectal Exam: Deferred
--- NOTE | 2017-07-22 20:32 | CP.PCM.PN ---
Subjective - Date & Time of Evaluation Date of Evaluation: 07/22/17 Time of Evaluation: 18:00 - Subjective Subjective: Has bone pain. Objective - Vital Signs/Intake and Output Vital Signs (last 24 hours): Temp Pulse Resp BP Pulse Ox 97.8 F 94 H 20 124/83 97 07/22/17 15:15 07/22/17 15:15 07/22/17 15:15 07/22/17 15:15 07/22/17 15:15 Intake and Output: 07/22/17 07/23/17 18:59 06:59 Intake Total 400 Output Total 3 Balance 397 - Medications Medications: Current Medications Diphenhydramine HCl (Benadryl) 25 mg IVP Q3H PRN PRN Reason: with dilaudid Last Admin: 07/22/17 18:55 Dose: 25 mg Folic Acid (Folic Acid) 1 mg PO DAILY [facility] Last Admin: 07/22/17 09:46 Dose: 1 mg Hydromorphone HCl (Dilaudid) 2 mg IVP Q3H PRN PRN Reason: Pain, severe (8-10) Last Admin: 07/22/17 18:57 Dose: 2 mg Hydroxyurea (Hydrea) 500 mg PO DAILY [facility] Last Admin: 07/22/17 09:46 Dose: 500 mg Sodium Chloride (Sodium Chloride 0.45%) 1,000 mls @ 125 mls/hr IV .Q8H [facility] Last Admin: 07/22/17 12:41 Dose: Not Given - Labs Labs: 07/22/17 07:17 07/22/17 07:17 - Head Exam Head Exam: ATRAUMATIC - Eye Exam Eye Exam: Normal appearance - ENT Exam ENT Exam: Mucous Membranes Dry - Respiratory Exam Respiratory Exam: NORMAL BREATHING PATTERN - Cardiovascular Exam Cardiovascular Exam: +S1, +S2 - GI/Abdominal Exam GI & Abdominal Exam: Normal Bowel Sounds Assessment and Plan (1) Sickle cell pain crisis Assessment & Plan: IV fluids, pain meds, folic acid, 02 via [place] no currently transfusion indication Status: Acute (2) Iron overload due to repeated red blood cell transfusions Assessment & Plan: minimize transfusion support outpatient chelation Status: Acute (3) Sickle cell anemia Assessment & Plan: outpatient hydrea and folic acid Status: Acute
[2017-07-23] MEDS: DiphenhydrAMINE 50 mg/ml Inj IVP PRN ×7 (01:06→22:25)
[2017-07-23] MEDS: Sodium Chloride 0.45% 1,000 ML IV SCH ×4 (04:00→18:40)
[2017-07-23 07:51] LABS: INR 1.1; PROTHROMBIN TIME 12.8 SECONDS (9.7-12.2)
[2017-07-23 07:57] LABS: BASO # 0.1 K/uL (0.0-0.2); BASO % 0.7 % (0.0-2.0); EOS # 0.4 K/uL (0.0-0.7); EOS % 3.8 % (0.0-4.0); HEMOGLOBIN 7.1 g/dL (11.0-16.0); LYMPH # 4.5 K/uL (1.0-4.3); MEAN CELL VOLUME 93.9 fL (81.0-99.0); MEAN CORPUSCULAR HEMOGLOBIN 32.4 pg (27.0-31.0); MEAN CORPUSCULAR HGB CONC 34.5 g/dL (33.0-37.0); MEAN PLATELET VOLUME 8.2 fL (7.2-11.7); MONO # 0.9 K/uL (0.0-0.8); MONO % 7.8 % (0.0-10.0); NEUT # 5.3 K/uL (1.8-7.0); NEUT % 47.7 % (50.0-75.0); RBC 2.18 Mil/uL (3.80-5.20); RED CELL DISTRIBUTION WIDTH 16.6 % (11.5-14.5); WHITE BLOOD COUNT 11.2 K/uL (4.8-10.8)
[2017-07-23 08:06] LABS: ALB/GLOB RATIO 1.2 (1.0-2.1); ALBUMIN 3.5 g/dL (3.5-5.0); ALT/SGPT 182 U/L (9-52); AST/SGOT 107 U/L (14-36); BLOOD UREA NITROGEN 11 mg/dL (7-17); CALCIUM 8.3 mg/dl (8.6-10.4); GFR AFRICAN-AMERICAN > 60; GFR NON-AFRICAN AMERICAN > 60
--- NOTE | 2017-07-23 10:49 | VASCLAB ---
PROCEDURE: Lower Extremity Venous Duplex Exam. HISTORY: LE swelling PRIORS: None. TECHNIQUE: Bilateral common femoral, femoral, popliteal and posterior tibial, peroneal and great saphenous veins were evaluated. Flow was assessed with color Doppler, compressibility, assessment of phasic flow and augmentation response. Report prepared by CARROLL Owens, RVT FINDINGS: RIGHT: 1. Common Femoral Vein: 1.1. Compressibility - Fully compressible: Thrombus - None : Flow - Phasic: Augmentation -Normal: Reflux - None. 2. Femoral Vein: 2.1. Compressibility - Fully compressible: Thrombus - None : Flow - Phasic: Augmentation -Normal: Reflux - None. 3. Popliteal Vein: 3.1. Compressibility - Fully compressible: Thrombus - None : Flow - Phasic: Augmentation -Normal: Reflux - None. 4. Posterior Tibial Vein: 4.1. Compressibility - Fully compressible: Thrombus - None: Flow - Phasic: Augmentation -Normal: Reflux - None. 5. Peroneal Vein: 5.1. Compressibility - Fully compressible: Thrombus - None: Flow - Phasic: Augmentation -Normal: Reflux - None. 6. Great Saphenous Vein: 6.1. Compressibility - Fully compressible: Thrombus - None: Flow - Phasic: Augmentation - Normal: Reflux - None. LEFT: 1. Common Femoral Vein: 1.1. Compressibility - Fully compressible: Thrombus - None: Flow - Phasic: Augmentation -Normal: Reflux - None. 2. Femoral Vein: 2.1. Compressibility - Fully compressible: Thrombus - None: Flow - Phasic: Augmentation -Normal: Reflux - None. 3. Popliteal Vein: 3.1. Compressibility - Fully compressible: Thrombus - None : Flow - Phasic: Augmentation -Normal: Reflux - None. 4. Posterior Tibial Vein: 4.1. Compressibility - Fully compressible: Thrombus - None: Flow - Phasic: Augmentation -Normal: Reflux - None. 5. Peroneal Vein: 5.1. Compressibility - Fully compressible: Thrombus - None: Flow - Phasic: Augmentation -Normal: Reflux - None. 6. Great Saphenous Vein: 6.1. Compressibility - Fully compressible: Thrombus - None: Flow - Phasic: Augmentation - Normal: Reflux - None. OTHER FINDINGS: Right: None significant. Left: None significant. IMPRESSION: Right: No evidence of deep or superficial vein thrombosis of the right lower extremity. Normal valve function noted of the right side. Left: No evidence of deep or superficial vein thrombosis of the left lower extremity. Normal valve function noted of the left side.
--- NOTE | 2017-07-23 10:56 | CP.PCM.PN ---
Subjective - Date & Time of Evaluation Date of Evaluation: 07/23/17 Time of Evaluation: 10:43 - Subjective Subjective: PGY2 progress note for Dr. Louis Pt seen and examined at bedside. No acute events overnight. Pt is resting comfortably. States that she has diffuse bone pain but feels fine right now as she just received pain medication. Denies having any CP, SOB, abd pain, N/v/D/C , F/C. 12 point ROS negative except for the above mentioned. Objective - Vital Signs/Intake and Output Vital Signs (last 24 hours): Temp Pulse Resp BP Pulse Ox 98.3 F 103 H 20 113/74 98 07/23/17 08:25 07/23/17 08:25 07/23/17 08:25 07/23/17 08:25 07/23/17 08:25 Intake and Output: 07/23/17 07/23/17 06:59 18:59 Intake Total 4600 Balance 4600 - Medications Medications: Current Medications Diphenhydramine HCl (Benadryl) 25 mg IVP Q3H PRN PRN Reason: with dilaudid Last Admin: 07/23/17 10:09 Dose: 25 mg Folic Acid (Folic Acid) 1 mg PO DAILY [facility] Last Admin: 07/23/17 10:08 Dose: 1 mg Hydromorphone HCl (Dilaudid) 2 mg IVP Q3H PRN PRN Reason: Pain, severe (8-10) Last Admin: 07/23/17 10:09 Dose: 2 mg Hydroxyurea (Hydrea) 500 mg PO DAILY [facility] Last Admin: 07/23/17 10:09 Dose: 500 mg Sodium Chloride (Sodium Chloride 0.45%) 1,000 mls @ 100 mls/hr IV .Q10H [facility] - Labs Labs: 07/23/17 07:16 07/23/17 07:16 PT 12.8 SECONDS (9.7-12.2) H 07/23/17 07:16 INR 1.1 07/23/17 07:16 APTT 34 SECONDS (21-34) 07/23/17 07:16 - Constitutional Appears: Non-toxic, No Acute Distress - Head Exam Head Exam: ATRAUMATIC - ENT Exam ENT Exam: Mucous Membranes Moist - Respiratory Exam Respiratory Exam: Clear to Ausculation Bilateral. absent: Accessory Muscle Use , Rhonchi, Wheezes, Respiratory Distress - Cardiovascular Exam Cardiovascular Exam: REGULAR RHYTHM, +S1, +S2. absent: Gallop, Rubs, Murmur - GI/Abdominal Exam GI & Abdominal Exam: Soft, Normal Bowel Sounds. absent: Distended, Firm, Guarding, Rigid, Tenderness, Organomegaly - Extremities Exam Extremities Exam: absent: Pedal Edema, Tenderness - Neurological Exam Neurological Exam: Alert, Awake, Oriented x3 - Psychiatric Exam Psychiatric exam: Normal Affect, Normal Mood - Skin Skin Exam: absent: Dry, Intact, Normal Color, Warm Assessment and Plan - Assessment and Plan (Free Text) Assessment: Sickle cell pain crisis Hgb this am is 7.1. Retic count is 15. At this time, no PRBC transfusion necessary. Will continue to trend retic count over hospital stay Patient on Hydroxyurea and Folic acid IV fluids with .45 NS Dilaudid 2 mg IVP Q3 prn Benadryl 25 mg IVP q3 oxygen therapy with sats above 92 Patient should try to eat and stay hydrated F/U HemeOnc (Dr. Portillo) recommendations Iron overload due to repeated red blood cell transfusions Patient would benefit from outpatient chelation but patient does not f/u as outpatient Leukocytosis Likely reactive to sickle cell LE swelling Le doppler is negative for DVT Transaminitis Acute increase in LFTs Will check hepatitis panel, abdominal US and iron studies Avoid hepatotoxic drugs Prophylactic Measure Influenza and Pneumonia vaccines SCDs. Protonix 40 mg PO daily Discussed with attending. Management and planning per Dr. Louis.
[2017-07-23 14:09] LABS: HEPATITIS A IGM NEGATIVE (NEGATIVE); HEPATITIS B CORE AB NEGATIVE (NEGATIVE)
[2017-07-23 14:21] LABS: HEPATITIS C ANTIBODY NEGATIVE (NEGATIVE)
[2017-07-23 14:41] LABS: HEPATITIS B SURFACE AG Negative (NEGATIVE)
[2017-07-23 15:46] LABS: IRON 199 ug/dL (37-170)
[2017-07-23 15:55] LABS: % IRON SATURATION 86 (20-55); TOTAL IRON BINDING CAPACITY 231 ug/dL (250-450)
--- NOTE | 2017-07-23 16:19 | US ---
HISTORY: transaminitis COMPARISON: CT abdomen and pelvis with IV contrast performed 06/23/17 TECHNIQUE: Sonographic evaluation of the abdomen. FINDINGS: LIVER: Measures 20.9 cm in sagittal dimension. Echogenic liver may be seen in setting of hepatic parenchymal disease or fatty infiltration. 1.8 x 1.5 x 1.6 cm echogenic lesion, right hepatic lobe. No focal hepatic mass identified. The main portal vein appears patent with normal directional flow. No intrahepatic bile duct dilatation. GALLBLADDER: Cholecystectomy. COMMON BILE DUCT: Measures 7 mm. PANCREAS: Not well visualized. RIGHT KIDNEY: Right pelvic kidney measures approximately 9.7 x 5.0 x 4.0 cm. No obstructing calculus or hydronephrosis identified. LEFT KIDNEY: Measures approximately 11.5 x 6.0 x 5.8 cm. No obstructing calculus or hydronephrosis identified. 0.7 x 0.7 x 0.6 cm upper pole renal cyst. SPLEEN: Splenectomy. AORTA: Limited views appear unremarkable. IVC: Limited views appear unremarkable. OTHER FINDINGS: None. IMPRESSION: Hepatomegaly. Echogenic liver may be seen in setting of hepatic parenchymal disease or fatty infiltration. Indeterminate 1.8 cm right hepatic lobe echogenic lesion. Splenectomy. Cholecystectomy. Right pelvic kidney.
--- NOTE | 2017-07-23 18:23 | CP.PCM.PN ---
Subjective - Date & Time of Evaluation Date of Evaluation: 07/23/17 Time of Evaluation: 08:00 - Subjective Subjective: clinically same Objective - Vital Signs/Intake and Output Vital Signs (last 24 hours): Temp Pulse Resp BP Pulse Ox 98.7 F 88 20 145/77 98 07/23/17 15:40 07/23/17 15:40 07/23/17 15:40 07/23/17 15:40 07/23/17 15:40 Intake and Output: 07/23/17 07/23/17 06:59 18:59 Intake Total 4600 Balance 4600 - Medications Medications: Current Medications Diphenhydramine HCl (Benadryl) 25 mg IVP Q3H PRN PRN Reason: with dilaudid Last Admin: 07/23/17 16:20 Dose: 25 mg Folic Acid (Folic Acid) 1 mg PO DAILY [facility] Last Admin: 07/23/17 10:08 Dose: 1 mg Hydromorphone HCl (Dilaudid) 2 mg IVP Q3H PRN PRN Reason: Pain, severe (8-10) Last Admin: 07/23/17 16:22 Dose: 2 mg Hydroxyurea (Hydrea) 500 mg PO DAILY [facility] Last Admin: 07/23/17 10:09 Dose: 500 mg Sodium Chloride (Sodium Chloride 0.45%) 1,000 mls @ 100 mls/hr IV .Q10H [facility] Last Admin: 07/23/17 13:19 Dose: Not Given - Labs Labs: 07/23/17 07:16 07/23/17 07:16 PT 12.8 SECONDS (9.7-12.2) H 07/23/17 07:16 INR 1.1 07/23/17 07:16 APTT 34 SECONDS (21-34) 07/23/17 07:16 - Constitutional Appears: Well - Head Exam Head Exam: ATRAUMATIC, NORMAL INSPECTION, NORMOCEPHALIC - Eye Exam Eye Exam: EOMI, Normal appearance, PERRL Pupil Exam: NORMAL ACCOMODATION, PERRL - ENT Exam ENT Exam: Mucous Membranes Moist, Normal Exam - Neck Exam Neck Exam: Full ROM, Normal Inspection. absent: Lymphadenopathy - Respiratory Exam Respiratory Exam: Decreased Breath Sounds - Cardiovascular Exam Cardiovascular Exam: REGULAR RHYTHM, +S1, +S2 - GI/Abdominal Exam GI & Abdominal Exam: Soft, Diminished Bowel Sounds - Rectal Exam Rectal Exam: Deferred
--- NOTE | 2017-07-23 19:33 | CP.PCM.PN ---
Subjective - Date & Time of Evaluation Date of Evaluation: 07/23/17 Time of Evaluation: 18:00 - Subjective Subjective: Has pain but improved Objective - Vital Signs/Intake and Output Vital Signs (last 24 hours): Temp Pulse Resp BP Pulse Ox 98.7 F 88 20 145/77 98 07/23/17 15:40 07/23/17 15:40 07/23/17 15:40 07/23/17 15:40 07/23/17 15:40 - Medications Medications: Current Medications Diphenhydramine HCl (Benadryl) 25 mg IVP Q3H PRN PRN Reason: with dilaudid Last Admin: 07/23/17 19:20 Dose: 25 mg Folic Acid (Folic Acid) 1 mg PO DAILY [facility] Last Admin: 07/23/17 10:08 Dose: 1 mg Hydromorphone HCl (Dilaudid) 2 mg IVP Q3H PRN PRN Reason: Pain, severe (8-10) Last Admin: 07/23/17 19:23 Dose: 2 mg Hydroxyurea (Hydrea) 500 mg PO DAILY [facility] Last Admin: 07/23/17 10:09 Dose: 500 mg Sodium Chloride (Sodium Chloride 0.45%) 1,000 mls @ 100 mls/hr IV .Q10H [facility] Last Admin: 07/23/17 18:40 Dose: Not Given - Labs Labs: 07/23/17 07:16 07/23/17 07:16 PT 12.8 SECONDS (9.7-12.2) H 07/23/17 07:16 INR 1.1 07/23/17 07:16 APTT 34 SECONDS (21-34) 07/23/17 07:16 - Head Exam Head Exam: ATRAUMATIC - Eye Exam Eye Exam: Normal appearance - ENT Exam ENT Exam: Mucous Membranes Dry - Respiratory Exam Respiratory Exam: NORMAL BREATHING PATTERN - Cardiovascular Exam Cardiovascular Exam: +S1, +S2 - GI/Abdominal Exam GI & Abdominal Exam: Normal Bowel Sounds - Extremities Exam Extremities Exam: Normal Inspection Assessment and Plan (1) Liver lesion Assessment & Plan: MRI of the liver Status: Acute (2) Sickle cell pain crisis Assessment & Plan: IV fluids, pain meds, folic acid, 02 via NC no transfusion indication Status: Acute (3) Iron overload due to repeated red blood cell transfusions Assessment & Plan: minimize transfusion support outpatient chelation Status: Acute (4) Sickle cell anemia Assessment & Plan: folic acid and hydrea Status: Acute
[2017-07-24] MEDS: DiphenhydrAMINE 50 mg/ml Inj IVP PRN ×3 (01:37→08:17)
[2017-07-24] MEDS: Sodium Chloride 0.45% 1,000 ML IV SCH (05:02)
[2017-07-24 07:31] LABS: INR 1.2; PROTHROMBIN TIME 13.2 SECONDS (9.7-12.2)
[2017-07-24 07:58] LABS: BASO # 0.1 K/uL (0.0-0.2); BASO % 0.6 % (0.0-2.0); EOS # 0.5 K/uL (0.0-0.7); HEMOGLOBIN 7.1 g/dL (11.0-16.0); LYMPH # 4.2 K/uL (1.0-4.3); LYMPH % 34.7 % (20.0-40.0); MEAN CELL VOLUME 94.3 fL (81.0-99.0); MEAN CORPUSCULAR HEMOGLOBIN 32.2 pg (27.0-31.0); MEAN CORPUSCULAR HGB CONC 34.1 g/dL (33.0-37.0); MEAN PLATELET VOLUME 8.1 fL (7.2-11.7); MONO # 1.1 K/uL (0.0-0.8); MONO % 8.7 % (0.0-10.0); NEUT # 6.3 K/uL (1.8-7.0); NRBC % 1.5 % (0.0-2.0); RBC 2.21 Mil/uL (3.80-5.20); RED CELL DISTRIBUTION WIDTH 16.8 % (11.5-14.5); WHITE BLOOD COUNT 12.2 K/uL (4.8-10.8)
[2017-07-24 08:10] LABS: ALB/GLOB RATIO 1.4 (1.0-2.1); ALBUMIN 3.6 g/dL (3.5-5.0); ALT/SGPT 173 U/L (9-52); AST/SGOT 97 U/L (14-36); BLOOD UREA NITROGEN 11 mg/dL (7-17); CALCIUM 8.4 mg/dl (8.6-10.4); GFR AFRICAN-AMERICAN > 60; GFR NON-AFRICAN AMERICAN > 60
[2017-07-24 08:58] VITALS: BP 112/60; PULSE 71; TEMP 98.2; O2SAT 96
--- NOTE | 2017-07-24 13:35 | CP.PCM.PN ---
Subjective - Date & Time of Evaluation Date of Evaluation: 07/24/17 Time of Evaluation: 13:32 - Subjective Subjective: PGY2 progress note for Dr. Louis Pt seen and examined at bedside. No acute events overnight. Pt states that she would like to leave AMA. Denies having any CP, SOB, abd pain, N/V/D/C, diffuse body pains. 12 point ROS negative except for above mentioned. Objective - Vital Signs/Intake and Output Vital Signs (last 24 hours): Temp Pulse Resp BP Pulse Ox 98.2 F 71 20 112/60 96 07/24/17 08:57 07/24/17 08:57 07/24/17 08:57 07/24/17 08:57 07/24/17 08:57 Intake and Output: 07/24/17 07/24/17 06:59 18:59 Intake Total 3500 Balance 3500 - Labs Labs: 07/24/17 07:16 07/24/17 07:16 PT 13.2 SECONDS (9.7-12.2) H 07/24/17 07:16 INR 1.2 07/24/17 07:16 APTT 35 SECONDS (21-34) H 07/24/17 07:16 - Head Exam Additional comments: pt refused physical exam because she wanted to leave AMA Assessment and Plan - Assessment and Plan (Free Text) Assessment: Sickle cell pain crisis Hgb stable this morning Patient on Hydroxyurea and Folic acid IV fluids with .45 NS Dilaudid 2 mg IVP Q3 prn Benadryl 25 mg IVP q3 oxygen therapy with sats above 92 Patient should try to eat and stay hydrated F/U HemeOnc (Dr. Portillo) recommendations Iron overload due to repeated red blood cell transfusions Patient would benefit from outpatient chelation but patient does not f/u as outpatient Leukocytosis Likely reactive to sickle cell LE swelling Le doppler is negative for DVT Transaminitis LFTs down-trending Abd US showed hepatomegaly with 1.8 cm hepatic lesion in right hepatic lobe Per Heme/onc, recommend getting MRI of live. This is explained to pt but she would like to sign out AMA Prophylactic Measure Influenza and Pneumonia vaccines SCDs. Protonix 40 mg PO daily Discussed with attending. Management and planning per Dr. Louis. Pt signed out AMA. Risks of leaving AMA are explained to pt.
== END 2017-07-24 11:10 | disposition left against medical advice (07) | DRG 395 ==
LOC: SUPCPDRO 23:19 → C.ER 23:19 → C.3T 07-20 02:01
PROVIDERS: ADMIT Internal Medicine Nephrology; ATTEND Internal Medicine Nephrology
DX: D57.00 Hb-SS disease with crisis, unspecified (principal); E83.111 Hemochromatosis due to repeated red blood cell transfusions; D72.829 Elevated white blood cell count, unspecified; K76.9 Liver disease, unspecified; Z80.1 Family history of malignant neoplasm of trachea, bronchus and lung; Z80.3 Family history of malignant neoplasm of breast; Z87.01 Personal history of pneumonia (recurrent); F12.90 Cannabis use, unspecified, uncomplicated

== ENCOUNTER 2017-08-04 08:10 | Emergency (ER) | payer MEDICAID ==
[2017-08-04 08:14] VITALS: BMI 19.5
[2017-08-04 08:20] VITALS: BP 122/79; PULSE 92; RESP 16; TEMP 98.3; O2SAT 100
[2017-08-04] MEDS ORDERED: Sodium Chloride 0.9% 1,000 ML IV ONE (08:55)
--- NOTE | 2017-08-04 09:16 | C.PDOC ---
History Of Present Illness 32 y/o female with PMHx of Sickle cell presents to ED with complaints of generalized achy abdominal pain for 4 days with associated body aches and dysuria. Patient is compliant with medication at home and denies fever, vomiting , diarrhea, chills or any other complaints at this time. Time Seen by Provider: 08/04/17 08:21 Chief Complaint (Nursing): Abdominal Pain History Per: Patient History/Exam Limitations: no limitations Onset/Duration Of Symptoms: Days Current Symptoms Are (Timing): Still Present Location Of Pain/Discomfort: Diffuse Past Medical History Reviewed: Historical Data, Nursing Documentation, Vital Signs Vital Signs: Last Vital Signs Temp 98.3 F 08/04/17 08:14 Pulse 92 H 08/04/17 08:14 Resp 16 08/04/17 08:14 BP 122/79 08/04/17 08:14 Pulse Ox 100 08/04/17 09:24 - Medical History PMH: Anemia, Bronchitis, Gall Bladder Disease (GB stone removed), Pneumonia, Sickle Cell Disease Surgical History: Cholecystectomy - [facility] Procedures INFLUENZA VACCINATION (03/16/12) INJECT/INFUSE ELECTROLYT (09/07/13) INJECT/INFUSE NEC (01/25/14) INSERT VAD RESERVOIR IN CHEST SUBCU/FASCIA, OPEN (05/31/17) INSERTION OF INFUSION DEV INTO SUP VENA CAVA, PERC APPROACH (01/25/17) NEBULIZER THERAPY (12/02/13) PACKED CELL TRANSFUSION (02/12/15) REMOVAL OF VAD FROM TRUNK SUBCU/FASCIA, OPEN APPROACH (04/15/16) TRANSFUSE NONAUT RED BLOOD CELLS IN PERIPH VEIN, PERC (04/17/17) VACCINATION NEC (08/22/13) Family History: States: No Known Family Hx - Social History Hx Tobacco Use: No Hx Alcohol Use: No Hx Substance Use: No - Immunization History Hx Tetanus Toxoid Vaccination: Yes Hx Influenza Vaccination: Yes (2016) Hx Pneumococcal Vaccination: Yes (2014) Review Of Systems Except As Marked, All Systems Reviewed And Found Negative. Gastrointestinal: Positive for: Abdominal Pain Physical Exam - Physical Exam Appears: Non-toxic, No Acute Distress Skin: Warm, Dry, No Rash Head: Atraumatic, Normacephalic Eye(s): bilateral: Normal Inspection Oral Mucosa: Moist Neck: Normal ROM, Supple Cardiovascular: Rhythm Regular Respiratory: Normal Breath Sounds, No Rales, No Rhonchi, No Wheezing Gastrointestinal/Abdominal: Bowel Sounds, Soft, Tenderness (Mild reproducible ) , No Guarding, No Rebound Back: No CVA Tenderness Neurological/Psych: Oriented x3 ED Course And Treatment O2 Sat by Pulse Oximetry: 100 (RA) Pulse Ox Interpretation: Normal Against Medical Advice - AMA Patient Left Against Medical Advice: The patient declines admission to the hospital and wishes to leave the Emergency Department. This action is against my medical advice. This decision was made with informed refusal. The patient was told that admission to the hospital is necessary. Explanation of the reasons why were discussed. The risks of leaving were explained to the patient and include, but are not limited to, worsening of known or currently unknown conditions, permanent disability and from undiagnosed or untreated conditions. The patient has the capacity to make this informed decision and understands my explanation of the current medical problem and risks of leaving. The patient voluntarily accepts these risks and signed an AMA form documenting our conversation. The patient was given the opportunity to ask questions and reconsider. The patient was encouraged to return to the Emergency Department at any time for further care. Medical Decision Making Medical Decision Making: Assessment: Abdominal pain Progress: Patient refusing labs, sign out AMA Disposition - Disposition Disposition: AGAINST MEDICAL ADVICE Disposition Time: 09:16 Condition: STABLE Additional Instructions: follow up with your doctor immediately you are signing out against medical advice and assuming responsibility of your care you understand symptoms may worsen and lead to irreversible outcome including you are welcome to return to ER at any time. Forms: [employer] (Surinamese) - Clinical Impression Clinical Impression: Abdominal pain - Scribe Statement The provider has reviewed the documentation as recorded by the Rosa Rodriguez All medical record entries made by the Rosa were at my direction and personally dictated by me. I have reviewed the chart and agree that the record accurately reflects my personal performance of the history, physical exam, medical decision making, and the department course for this patient. I have also personally directed, reviewed, and agree with the discharge instructions and disposition.
== END 2017-08-04 09:35 | disposition left against medical advice (07) ==
LOC: C.ER 08:10
DX: R10.9 Unspecified abdominal pain (principal)

== ENCOUNTER 2017-08-06 15:29 | Observation (INO) | payer MEDICAID ==
[2017-08-06 15:29] VITALS: BMI 19.5
[2017-08-06 16:43] LABS: HCG,QUALITATIVE URINE NEGATIVE (NEGATIVE)
[2017-08-06 16:44] LABS: SQUAMOUS EPITHIAL 1 /hpf (0-5); URINE BILIRUBIN NEGATIVE (NEGATIVE); URINE BLOOD NEGATIVE (NEGATIVE); URINE CLARITY Clear (Clear); URINE COLOR Yellow (YELLOW); URINE GLUCOSE (UA) NORMAL (Normal); URINE LEUKOCYTE ESTERASE NEG Leu/uL (Negative); URINE NITRATE NEGATIVE (NEGATIVE); URINE PROTEIN NEGATIVE (NEGATIVE); URINE UROBILINOGEN NORMAL mg/dL (0.2-1.0)
[2017-08-06 17:00] LABS: BARBITURATES, UR NEGATIVE (NEGATIVE); BENZODIAZEPINES, UR NEGATIVE (NEGATIVE); OPIATES, UR NEGATIVE (NEGATIVE); PHENCYCLIDINE, UR NEGATIVE (NEGATIVE)
[2017-08-06] MEDS ORDERED: Sodium Chloride 0.9% 1,000 ML IV ONE (17:17)
[2017-08-06] MEDS ORDERED: Sodium Chloride 0.9% 1,000 ML ONE (17:39)
[2017-08-06 18:23] LABS: BASO # 0.1 K/uL (0.0-0.2); BASO % 0.4 % (0.0-2.0); EOS # 0.2 K/uL (0.0-0.7); EOS % 0.9 % (0.0-4.0); HEMOGLOBIN 7.8 g/dL (11.0-16.0); LYMPH # 8.4 K/uL (1.0-4.3); LYMPH % 47.5 % (20.0-40.0); MEAN CORPUSCULAR HEMOGLOBIN 30.6 pg (27.0-31.0); MEAN CORPUSCULAR HGB CONC 33.6 g/dL (33.0-37.0); MEAN PLATELET VOLUME 7.8 fL (7.2-11.7); MONO # 1.7 K/uL (0.0-0.8); MONO % 9.7 % (0.0-10.0); NEUT # 7.3 K/uL (1.8-7.0); NEUT % 41.5 % (50.0-75.0); NRBC % 0.2 % (0.0-2.0); RBC 2.56 Mil/uL (3.80-5.20); RED CELL DISTRIBUTION WIDTH 23.9 % (11.5-14.5); WHITE BLOOD COUNT 17.6 K/uL (4.8-10.8)
[2017-08-06 18:36] LABS: ALB/GLOB RATIO 1.3 (1.0-2.1); ALT/SGPT 119 U/L (9-52); AST/SGOT 68 U/L (14-36); BLOOD UREA NITROGEN 13 mg/dL (7-17); CALCIUM 9.1 mg/dl (8.6-10.4); GFR AFRICAN-AMERICAN > 60; GFR NON-AFRICAN AMERICAN > 60; LIPASE 53 U/L (23-300)
[2017-08-06 18:46] VITALS: PULSE 78; RESP 20
--- NOTE | 2017-08-06 20:13 | US ---
EXAM: US Pelvis Complete, Transabdominal US Pelvis, Transvaginal US Duplex Arterial/Venous of the Pelvis, Complete EXAM DATE/TIME: 08/06/2017 5:18 PM CLINICAL HISTORY: 32 years old, female; Pain; Pelvic pain; LMP 07/17/17; negative urine test TECHNIQUE: Real-time transabdominal and transvaginal pelvic ultrasound (complete) with image documentation. Transvaginal imaging was used for better evaluation of the endometrium and adnexa. Real-time duplex ultrasound scan of the arterial and venous flow of the pelvis with color Doppler flow and spectral waveform analysis. COMPARISON: CT - ABD PELVIS IV CONTRAST ONLY 2017-06-23 22:20 FINDINGS: Uterus/cervix: Uterus measures approximately 8 x 3 x 4 cm. Uterus is retroflexed Endometrium measures approximately 7 mm in width. Right ovary: Right ovary measures approximately 2.4 x 2.2 x 2.2 cm.There are multiple small follicles. There is intraovarian blood flow. Left ovary: Left ovary measures approximately 4.2 x 2 by 2.7 cm. There are multiple follicles. There is a corpus luteum.There is expected blood flow on Doppler imaging Free fluid: There is a small amount of free fluid in the pelvis. Bladder: Bladder is incompletely distended. IMPRESSION: Small amount of free fluid in the pelvis, physiologic versus cyst rupture; corpus luteum in the left ovary, no ovarian torsion
--- NOTE | 2017-08-06 21:01 | C.PDOC ---
History Of Present Illness Pt c/o generalized body pain, worse in the suprapubic area. Time Seen by Provider: 08/06/17 16:11 Chief Complaint (Nursing): Abdominal Pain History Per: Patient Onset/Duration Of Symptoms: Days (2) Current Symptoms Are (Timing): Still Present Severity: Moderate Location Of Pain/Discomfort: Suprapubic Quality Of Discomfort: "Pain" Exacerbating Factors: Movement Alleviating Factors: None Additional History Per: Prior Records Abnormal Vaginal Bleeding: No Past Medical History Reviewed: Historical Data, Nursing Documentation, Vital Signs Vital Signs: Last Vital Signs Temp 98.7 F 08/06/17 15:39 Pulse 78 08/06/17 18:45 Resp 20 08/06/17 18:45 BP 109/74 08/06/17 18:45 Pulse Ox 98 08/06/17 21:01 - Medical History PMH: Anemia, Bronchitis, Gall Bladder Disease (GB stone removed), Pneumonia, Sickle Cell Disease Surgical History: Cholecystectomy - [facility] Procedures INFLUENZA VACCINATION (03/16/12) INJECT/INFUSE ELECTROLYT (09/07/13) INJECT/INFUSE NEC (01/25/14) INSERT VAD RESERVOIR IN CHEST SUBCU/FASCIA, OPEN (05/31/17) INSERTION OF INFUSION DEV INTO SUP VENA CAVA, PERC APPROACH (01/25/17) NEBULIZER THERAPY (12/02/13) PACKED CELL TRANSFUSION (02/12/15) REMOVAL OF VAD FROM TRUNK SUBCU/FASCIA, OPEN APPROACH (04/15/16) TRANSFUSE NONAUT RED BLOOD CELLS IN PERIPH VEIN, PERC (04/17/17) VACCINATION NEC (08/22/13) Family History: States: Unknown Family Hx - Social History Hx Tobacco Use: No Hx Alcohol Use: No Hx Substance Use: No - Immunization History Hx Tetanus Toxoid Vaccination: Yes Hx Influenza Vaccination: Yes (2016) Hx Pneumococcal Vaccination: Yes (2014) Review Of Systems Except As Marked, All Systems Reviewed And Found Negative. Constitutional: Negative for: Fever Cardiovascular: Negative for: Chest Pain Respiratory: Negative for: Shortness of Breath Gastrointestinal: Positive for: Abdominal Pain. Negative for: Vomiting, Diarrhea Genitourinary: Positive for: Dysuria. Negative for: Vaginal Bleeding Musculoskeletal: Positive for: Back Pain Skin: Negative for: Rash Neurological: Negative for: Weakness, Numbness, Seizures, Altered Mental Status Physical Exam - Physical Exam Appears: No Acute Distress, Chronically Ill Skin: Warm, Dry, Pale Head: Atraumatic Eye(s): bilateral: PERRL, EOMI, Conjunctiva Pale Neck: Normal ROM, Supple Cardiovascular: Rhythm Regular Respiratory: Normal Breath Sounds, No Accessory Muscle Use Gastrointestinal/Abdominal: Soft, Tenderness (suprapubic), No Guarding, No Rebound Extremity: Normal ROM, No Deformity Neurological/Psych: Oriented x3, Normal Motor, Normal Sensation ED Course And Treatment - Laboratory Results Result Diagrams: 08/06/17 18:19 08/06/17 18:19 Interpretation Of Abnormal: Leukocytosis. Anemia. Urine POC: Negative O2 Sat by Pulse Oximetry: 98 Pulse Ox Interpretation: Normal - CT Scan/US Pelvic US Other Rad Studies (CT/US): Read By Radiologist, Radiology Report Reviewed CT/US Interpretation: IMPRESSION: Small amount of free fluid in the pelvis, physiologic versus cyst. rupture; corpus luteum in the left ovary, no ovarian torsion Progress Note: Pt states that she is still having sickle cell pain after Dilaudid x 2. Will keep for observation. Progress - Interventions Interventions:: Observation, Intravenous fluid - Medications Administered Oral: Opiate - Data Reviewed Data Reviewed: Lab, Diagnostic imaging, Old records - Patient Status Patient status: Unchanged - Continuity of Care Discussed patient case with:: Patient, ED Nurse, PMD Disposition Discussed With : Enzo Louis Comment: He accepted pt on his service. Doctor Will See Patient In The: Hospital Counseled Patient/Family Regarding: Studies Performed, Diagnosis - Disposition Disposition: HOSPITALIZED Disposition Time: 21:05 Condition: FAIR - Clinical Impression Clinical Impression: Sickle cell pain crisis, Abdominal pain
[2017-08-07] MEDS: DiphenhydrAMINE 50 mg/ml Inj IVP PRN ×5 (00:10→12:25)
[2017-08-07] MEDS: Sodium Chloride 0.9% 1,000 ML IV SCH ×2 (01:30→13:39)
[2017-08-07 07:50] VITALS: BP 121/60; TEMP 98; O2SAT 98
[2017-08-07] MEDS ORDERED: Pantoprazole 40 mg EC Tab PO SCH (10:00)
== END 2017-08-07 13:45 | disposition left against medical advice (07) ==
LOC: C.ER 15:29 → C.9E 21:05 → C.3T 21:05
PROVIDERS: ADMIT Internal Medicine Nephrology; ATTEND Internal Medicine Nephrology
DX: D57.00 Hb-SS disease with crisis, unspecified (principal); D64.9 Anemia, unspecified
CPT/HCPCS: 76830; 76856; 80053; 80324; 80345; 80346; 80349; 80353; 80358; 80361; 81001; 83615; 83690; 83992; 84703; 85025; 85044; 86140; 87086; 96361; 96374; 96375; 96376; 99285; G0378; J1170; J1200; J1642; J7040

== ENCOUNTER 2017-08-10 11:40 | Inpatient (IN) | payer MEDICAID ==
[2017-08-10 11:40] VITALS: BMI 19.5
[2017-08-10] MEDS ORDERED: Sodium Chloride 0.9% 1,000 ML IV ONE (13:44)
[2017-08-10 14:00] LABS: URINE BILIRUBIN NEGATIVE (NEGATIVE); URINE BLOOD 1+ (NEGATIVE); URINE CLARITY Clear (Clear); URINE COLOR Yellow (YELLOW); URINE GLUCOSE (UA) NORMAL (Normal); URINE LEUKOCYTE ESTERASE NEG Leu/uL (Negative); URINE NITRATE NEGATIVE (NEGATIVE); URINE PROTEIN 1+ mg/dL (NEGATIVE); URINE UROBILINOGEN NORMAL mg/dL (0.2-1.0)
[2017-08-10] MEDS ORDERED: DiphenhydrAMINE 50 mg/ml Inj IVP STA (14:03)
[2017-08-10] MEDS ORDERED: Morphine 4 MG/ML VIAL IV STA (14:03)
[2017-08-10 14:13] LABS: BASO # 0.1 K/uL (0.0-0.2); BASO % 0.6 % (0.0-2.0); EOS # 0.2 K/uL (0.0-0.7); EOS % 1.1 % (0.0-4.0); HEMOGLOBIN 8.1 g/dL (11.0-16.0); LYMPH # 5.5 K/uL (1.0-4.3); LYMPH % 33.5 % (20.0-40.0); MEAN CORPUSCULAR HEMOGLOBIN 30.5 pg (27.0-31.0); MEAN CORPUSCULAR HGB CONC 33.5 g/dL (33.0-37.0); MEAN PLATELET VOLUME 7.6 fL (7.2-11.7); MONO # 1.1 K/uL (0.0-0.8); MONO % 6.8 % (0.0-10.0); NEUT # 9.5 K/uL (1.8-7.0); NRBC % 0.1 % (0.0-2.0); RBC 2.65 Mil/uL (3.80-5.20); RED CELL DISTRIBUTION WIDTH 22.3 % (11.5-14.5); WHITE BLOOD COUNT 16.4 K/uL (4.8-10.8)
--- NOTE | 2017-08-10 14:14 | C.PDOC ---
Time Seen by Provider: 08/10/17 13:44 Chief Complaint (Nursing): Pain, Chronic Past Medical History Vital Signs: Last Vital Signs Temp 98.6 F 08/10/17 12:42 Pulse 88 08/10/17 12:42 Resp 18 08/10/17 12:42 BP 125/88 08/10/17 12:42 Pulse Ox 100 08/10/17 12:42 - Medical History PMH: Anemia, Bronchitis, Gall Bladder Disease (GB stone removed), Pneumonia, Sickle Cell Disease Surgical History: Cholecystectomy - [facility] Procedures INFLUENZA VACCINATION (03/16/12) INJECT/INFUSE ELECTROLYT (09/07/13) INJECT/INFUSE NEC (01/25/14) INSERT VAD RESERVOIR IN CHEST SUBCU/FASCIA, OPEN (05/31/17) INSERTION OF INFUSION DEV INTO SUP VENA CAVA, PERC APPROACH (01/25/17) NEBULIZER THERAPY (12/02/13) PACKED CELL TRANSFUSION (02/12/15) REMOVAL OF VAD FROM TRUNK SUBCU/FASCIA, OPEN APPROACH (04/15/16) TRANSFUSE NONAUT RED BLOOD CELLS IN PERIPH VEIN, PERC (04/17/17) VACCINATION NEC (08/22/13) Family History: States: Unknown Family Hx - Social History Hx Tobacco Use: No Hx Alcohol Use: No Hx Substance Use: No - Immunization History Hx Tetanus Toxoid Vaccination: Yes Hx Influenza Vaccination: Yes (2016) Hx Pneumococcal Vaccination: Yes (2014) ED Course And Treatment O2 Sat by Pulse Oximetry: 100 Disposition Discussed With : Enzo Louis Doctor Will See Patient In The: Hospital Counseled Patient/Family Regarding: Studies Performed, Diagnosis - Disposition Disposition: HOSPITALIZED Disposition Time: 14:14 Condition: FAIR - Clinical Impression Clinical Impression: Sickle cell crisis
--- NOTE | 2017-08-10 14:14 | C.PDOC ---
History Of Present Illness 32 year old female, whose PMHx includes sickle cell disease, presents to the ED for evaluation of exacerbation of chronic pain. Patient denies fever, chills, nausea, vomiting. Time Seen by Provider: 08/10/17 13:44 Chief Complaint (Nursing): Pain, Chronic History Per: Patient History/Exam Limitations: no limitations Onset/Duration Of Symptoms: Days Current Symptoms Are (Timing): Still Present Additional History Per: Patient Past Medical History Reviewed: Historical Data, Nursing Documentation, Vital Signs Vital Signs: Last Vital Signs Temp 98.6 F 08/10/17 12:42 Pulse 88 08/10/17 12:42 Resp 18 08/10/17 12:42 BP 125/88 08/10/17 12:42 Pulse Ox 100 08/10/17 14:18 - Medical History PMH: Anemia, Bronchitis, Gall Bladder Disease (GB stone removed), Pneumonia, Sickle Cell Disease Surgical History: Cholecystectomy - [facility] Procedures INFLUENZA VACCINATION (03/16/12) INJECT/INFUSE ELECTROLYT (09/07/13) INJECT/INFUSE NEC (01/25/14) INSERT VAD RESERVOIR IN CHEST SUBCU/FASCIA, OPEN (05/31/17) INSERTION OF INFUSION DEV INTO SUP VENA CAVA, PERC APPROACH (01/25/17) NEBULIZER THERAPY (12/02/13) PACKED CELL TRANSFUSION (02/12/15) REMOVAL OF VAD FROM TRUNK SUBCU/FASCIA, OPEN APPROACH (04/15/16) TRANSFUSE NONAUT RED BLOOD CELLS IN PERIPH VEIN, PERC (04/17/17) VACCINATION NEC (08/22/13) Family History: States: Unknown Family Hx - Social History Hx Tobacco Use: No Hx Alcohol Use: No Hx Substance Use: No - Immunization History Hx Tetanus Toxoid Vaccination: Yes Hx Influenza Vaccination: Yes (2016) Hx Pneumococcal Vaccination: Yes (2014) Review Of Systems Musculoskeletal: Positive for: Other (generalized pain ) Physical Exam - Physical Exam Appears: Non-toxic, No Acute Distress Skin: Normal Color, Warm, Dry Head: Atraumatic, Normacephalic Eye(s): bilateral: Normal Inspection Oral Mucosa: Moist Neck: Supple Chest: Symmetrical, No Deformity, No Tenderness Cardiovascular: Rhythm Regular, No Murmur Respiratory: Normal Breath Sounds, No Rales, No Rhonchi, No Wheezing Gastrointestinal/Abdominal: Soft, No Tenderness, No Guarding, No Rebound Extremity: Normal ROM, Capillary Refill (less than 2 seconds ) Neurological/Psych: Oriented x3, Normal Speech, Normal Cognition Gait: Steady ED Course And Treatment - Laboratory Results Result Diagrams: 08/10/17 14:07 08/10/17 14:07 O2 Sat by Pulse Oximetry: 100 (on RA) Pulse Ox Interpretation: Normal Medical Decision Making Medical Decision Making: Assessment: sickle cell crisis Progress: Bloodwork and UA ordered and reviewed. Benadryl IVP, Morphine IV and IV Fluids administered. Case discussed with Dr. Ariel Louis. Patient accepted for admission under diagnosis of sickle cell crisis. Disposition Discussed With DrMeagan: Enzo Louis Doctor Will See Patient In The: Hospital Counseled Patient/Family Regarding: Studies Performed, Diagnosis - Disposition Disposition: HOSPITALIZED Disposition Time: 14:14 Condition: FAIR - Clinical Impression Clinical Impression: Sickle cell crisis - Scribe Statement The provider has reviewed the documentation as recorded by the Scribe (Katelin Louis) Provider Attestation: All medical record entries made by the Scribe were at my direction and personally dictated by me. I have reviewed the chart and agree that the record accurately reflects my personal performance of the history, physical exam, medical decision making, and the department course for this patient. I have also personally directed, reviewed, and agree with the discharge instructions and disposition.
[2017-08-10 14:26] LABS: ALB/GLOB RATIO 1.3 (1.0-2.1); ALBUMIN 4.1 g/dL (3.5-5.0); ALT/SGPT 131 U/L (9-52); AST/SGOT 71 U/L (14-36); BLOOD UREA NITROGEN 11 mg/dL (7-17); CALCIUM 9.3 mg/dl (8.6-10.4); GFR AFRICAN-AMERICAN > 60; GFR NON-AFRICAN AMERICAN > 60; LIPASE 49 U/L (23-300)
[2017-08-10] MEDS ORDERED: DiphenhydrAMINE 50 mg/ml Inj ONE (14:44)
[2017-08-10] MEDS ORDERED: Morphine 4 MG/ML VIAL ONE (14:45)
--- NOTE | 2017-08-10 17:12 | CP.PCM.HP ---
History of Present Illness - History of Present Illness History of Present Illness: 32 yo F with PMH of Anemia, Bronchitis, Gall Bladder Disease (GB stone removed) , Pneumonia, and Sickle Cell Disease presents to ED with c/o few days of worsening chronic generalized bodyaches. Denies fever, chills, dyspnea, n/v/d, dysuria. Pt admitted for management of sickle cell crises. Present on Admission - Present on Admission Any Indicators Present on Admission: No Review of Systems - Musculoskeletal Musculoskeletal: As Per HPI Past Patient History - Infectious Disease Hx of Infectious Diseases: None - Tetanus Immunizations Tetanus Immunization: Up to Date - Past Medical History & Family History Past Medical History?: Yes - Past Social History Smoking Status: Never Smoked - PULMONARY Hx Bronchitis: Yes Hx Pneumonia: Yes - HEENT Hx HEENT Problems: No - HEMATOLOGICAL/ONCOLOGICAL Hx Anemia: Yes Hx Sickle Cell Disease: Yes - INTEGUMENTARY Hx Dermatological Problems: No - GASTROINTESTINAL Hx Gall Bladder Disease: Yes (GB stone removed) - PSYCHIATRIC Hx Substance Use: No - SURGICAL HISTORY Hx Cholecystectomy: Yes - ANESTHESIA Hx Anesthesia: Yes Hx Anesthesia Reactions: No Hx Malignant Hyperthermia: No Meds Allergies/Adverse Reactions: Allergies Allergy/AdvReac Type Severity Reaction Status Date / Time FISH Allergy Severe RASH Verified 08/10/17 12:45 oxycodone Allergy Severe RASH Verified 08/10/17 12:45 tramadol Allergy Severe RASH Verified 08/10/17 12:45 ketorolac Allergy Intermediate RASH Verified 08/10/17 12:45 Physical Exam - Constitutional Appears: No Acute Distress - Head Exam Head Exam: ATRAUMATIC, NORMAL INSPECTION, NORMOCEPHALIC - Eye Exam Eye Exam: EOMI, Normal appearance, PERRL Pupil Exam: NORMAL ACCOMODATION, PERRL - ENT Exam ENT Exam: Mucous Membranes Moist - Neck Exam Neck exam: Positive for: Full Rom - Respiratory Exam Respiratory Exam: Decreased Breath Sounds - Cardiovascular Exam Cardiovascular Exam: REGULAR RHYTHM, +S1, +S2 - GI/Abdominal Exam GI & Abdominal Exam: Diminished Bowel Sounds, Soft - Rectal Exam Rectal Exam: Deferred - Neurological Exam Neurological exam: Alert, Oriented x3 Results - Vital Signs Recent Vital Signs: Last Vital Signs Temp 98.6 F 08/10/17 12:42 Pulse 88 08/10/17 12:42 Resp 18 08/10/17 12:42 BP 125/88 08/10/17 12:42 Pulse Ox 100 02/26/18 15:07 - Labs Result Diagrams: 08/10/17 14:07 08/10/17 14:07 Labs: Laboratory Results - last 24 hr 08/10/17 08/10/17 08/10/17 13:54 14:07 14:07 WBC 16.4 H RBC 2.65 L Hgb 8.1 L Hct 24.1 L MCV 91.0 MCH 30.5 MCHC 33.5 RDW 22.3 H Plt Count 409 H MPV 7.6 Neut % (Auto) 58.0 Lymph % (Auto) 33.5 [place] % (Auto) 6.8 Eos % (Auto) 1.1 Baso % (Auto) 0.6 Neut # (Auto) 9.5 H Lymph # (Auto) 5.5 H [place] # (Auto) 1.1 H Eos # (Auto) 0.2 Baso # (Auto) 0.1 Retic Count Sodium 141 Potassium 4.1 Chloride 104 Carbon Dioxide 25 Anion Gap 17 BUN 11 Creatinine 0.4 L Est GFR ( Amer) > 60 Est GFR (Non-Af Amer) > 60 Random Glucose 106 H Calcium 9.3 Total Bilirubin 1.8 H AST 71 H ALT 131 H Alkaline Phosphatase 114 Total Protein 7.4 Albumin 4.1 Globulin 3.3 Albumin/Globulin Ratio 1.3 Lipase 49 Urine Color Yellow Urine Clarity Clear Urine pH 6.0 Ur Specific [place] 1.012 Urine Protein 1+ H Urine Glucose (UA) Normal Urine Ketones Negative Urine Blood 1+ H Urine Nitrate Negative Urine Bilirubin Negative Urine Urobilinogen Normal Ur Leukocyte Esterase Neg Urine WBC (Auto) 1 Urine RBC (Auto) 1 08/10/17 14:07 WBC RBC Hgb Hct MCV MCH MCHC RDW Plt Count MPV Neut % (Auto) Lymph % (Auto) [place] % (Auto) Eos % (Auto) Baso % (Auto) Neut # (Auto) Lymph # (Auto) [place] # (Auto) Eos # (Auto) Baso # (Auto) Retic Count 10.5 H Sodium Potassium Chloride Carbon Dioxide Anion Gap BUN Creatinine Est GFR ( Amer) Est GFR (Non-Af Amer) Random Glucose Calcium Total Bilirubin AST ALT Alkaline Phosphatase Total Protein Albumin Globulin Albumin/Globulin Ratio Lipase Urine Color Urine Clarity Urine pH Ur Specific [place] Urine Protein Urine Glucose (UA) Urine Ketones Urine Blood Urine Nitrate Urine Bilirubin Urine Urobilinogen Ur Leukocyte Esterase Urine WBC (Auto) Urine RBC (Auto) Assessment & Plan (1) Sickle cell anemia with pain Status: Acute (2) Abdominal pain Status: Acute (3) Abdominal pain Status: Acute (4) Abnormal LFTs Status: Acute (5) Admission for fitting of port-a-cath Status: Acute (6) Anemia Status: Acute (7) Anemia Status: Acute (8) Cannabis use disorder, mild, abuse Status: Acute (9) Chronic abdominal pain Status: Acute (10) Chronic pain Status: Acute (11) Chronic pain disorder Status: Acute (12) Contusion of back Status: Acute (13) Contusion of hip, right Status: Acute (14) Dehydration Status: Acute (15) Drug-seeking behavior Status: Acute (16) Dysfunctional uterine bleeding Status: Acute (17) Elevated LFTs Status: Acute (18) Generalized pain Status: Acute (19) Headache Status: Acute (20) Hordeolum externum (stye) Status: Acute (21) Iron overload due to repeated red blood cell transfusions Status: Acute (22) Leukocytosis Status: Acute (23) Liver lesion Status: Acute (24) Opioid abuse Status: Acute (25) Pain Status: Acute (26) Pain Status: Acute (27) Pain disorder Status: Acute (28) Pneumonia Status: Acute (29) Prophylactic measure Status: Acute (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 (31) Sickle cell anemia Status: Acute (32) Sickle cell crisis Status: Acute (33) Sickle cell crisis Status: Acute (34) Sickle cell disease Status: Acute (35) Sickle cell pain crisis Status: Acute (36) Sickle cell pain crisis Status: Acute (37) Sickle cell trait Status: Acute (38) Sickle-cell disease with pain Status: Acute (39) 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
[2017-08-10] MEDS: DiphenhydrAMINE 50 mg/ml Inj IVP SCH (22:11)
[2017-08-11] MEDS: DiphenhydrAMINE 50 mg/ml Inj IVP SCH ×8 (01:11→22:02)
[2017-08-11] MEDS: Sodium Chloride 0.9% 1,000 ML IV SCH (08:45)
[2017-08-11] MEDS: Enoxaparin 40 mg Syringe SC SCH (10:12)
[2017-08-11] MEDS: Pantoprazole 40 mg EC Tab PO SCH (10:12)
--- NOTE | 2017-08-11 17:19 | CP.PCM.PN ---
Subjective - Date & Time of Evaluation Date of Evaluation: 08/11/17 Time of Evaluation: 09:20 - Subjective Subjective: clinically same Objective - Vital Signs/Intake and Output Vital Signs (last 24 hours): Temp Pulse Resp BP Pulse Ox 97.5 F L 90 20 109/69 97 08/11/17 16:00 08/11/17 16:00 08/11/17 16:00 08/11/17 16:00 08/11/17 16:00 Intake and Output: 08/11/17 08/11/17 06:59 18:59 Intake Total 300 500 Balance 300 500 - Medications Medications: Current Medications Diphenhydramine HCl (Benadryl) 25 mg IVP Q3 [facility] Last Admin: 08/11/17 16:00 Dose: 25 mg Enoxaparin Sodium (Lovenox) 40 mg SC DAILY [facility] Last Admin: 08/11/17 10:12 Dose: 40 mg Folic Acid (Folic Acid) 1 mg PO DAILY [facility] Last Admin: 08/11/17 10:12 Dose: 1 mg Hydromorphone HCl (Dilaudid) 2 mg IVP Q3 [facility] Last Admin: 08/11/17 16:01 Dose: 2 mg Hydroxyurea (Hydrea) 500 mg PO TID [facility] Last Admin: 08/11/17 13:43 Dose: 500 mg Sodium Chloride (Sodium Chloride 0.9%) 1,000 mls @ 50 mls/hr IV .Q20H [facility] Last Admin: 08/11/17 08:45 Dose: 50 mls/hr Pantoprazole Sodium (Protonix Ec Tab) 40 mg PO DAILY [facility] Last Admin: 08/11/17 10:12 Dose: 40 mg - Labs Labs: 08/10/17 14:07 08/10/17 14:07 - Constitutional Appears: Well - Head Exam Head Exam: ATRAUMATIC, NORMAL INSPECTION, NORMOCEPHALIC - Eye Exam Eye Exam: EOMI, Normal appearance, PERRL Pupil Exam: NORMAL ACCOMODATION, PERRL - ENT Exam ENT Exam: Mucous Membranes Moist, Normal Exam - Neck Exam Neck Exam: Full ROM, Normal Inspection. absent: Lymphadenopathy - Respiratory Exam Respiratory Exam: Decreased Breath Sounds - Cardiovascular Exam Cardiovascular Exam: REGULAR RHYTHM, +S1, +S2 - GI/Abdominal Exam GI & Abdominal Exam: Soft, Diminished Bowel Sounds - Rectal Exam Rectal Exam: Deferred Assessment and Plan (1) Sickle cell anemia with pain Status: Acute (2) Abdominal pain Status: Acute (3) Abdominal pain Status: Acute (4) Abnormal LFTs Status: Acute (5) Admission for fitting of port-a-cath Status: Acute (6) Anemia Status: Acute (7) Anemia Status: Acute (8) Cannabis use disorder, mild, abuse Status: Acute (9) Chronic abdominal pain Status: Acute (10) Chronic pain Status: Acute (11) Chronic pain disorder Status: Acute (12) Contusion of back Status: Acute (13) Contusion of hip, right Status: Acute (14) Dehydration Status: Acute (15) Drug-seeking behavior Status: Acute (16) Dysfunctional uterine bleeding Status: Acute (17) Elevated LFTs Status: Acute (18) Generalized pain Status: Acute (19) Headache Status: Acute (20) Hordeolum externum (stye) Status: Acute (21) Iron overload due to repeated red blood cell transfusions Status: Acute (22) Leukocytosis Status: Acute (23) Liver lesion Status: Acute (24) Opioid abuse Status: Acute (25) Pain Status: Acute (26) Pain Status: Acute (27) Pain disorder Status: Acute (28) Pneumonia Status: Acute (29) Prophylactic measure Status: Acute (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 (31) Sickle cell anemia Status: Acute (32) Sickle cell crisis Status: Acute (33) Sickle cell crisis Status: Acute (34) Sickle cell disease Status: Acute (35) Sickle cell pain crisis Status: Acute (36) Sickle cell pain crisis Status: Acute (37) Sickle cell trait Status: Acute (38) Sickle-cell disease with pain Status: Acute (39) 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 - Assessment and Plan (Free Text) Plan: Protonix Lovenox Diluted Hydroxyurea Consultation as ordered Monitor hemoglobin hematocrit Monitor pain
[2017-08-12] MEDS: DiphenhydrAMINE 50 mg/ml Inj IVP SCH ×8 (01:11→22:02)
[2017-08-12] MEDS: Sodium Chloride 0.9% 1,000 ML IV SCH (04:30)
[2017-08-12] MEDS: Enoxaparin 40 mg Syringe SC SCH (10:21)
[2017-08-12] MEDS: Pantoprazole 40 mg EC Tab PO SCH (10:21)
[2017-08-12 11:45] LABS: BASO # 0.1 K/uL (0.0-0.2); BASO % 0.7 % (0.0-2.0); EOS # 0.6 K/uL (0.0-0.7); LYMPH # 6.5 K/uL (1.0-4.3); LYMPH % 46.6 % (20.0-40.0); MEAN CELL VOLUME 91.3 fL (81.0-99.0); MEAN CORPUSCULAR HEMOGLOBIN 30.7 pg (27.0-31.0); MEAN CORPUSCULAR HGB CONC 33.6 g/dL (33.0-37.0); MEAN PLATELET VOLUME 8.4 fL (7.2-11.7); MONO # 1.3 K/uL (0.0-0.8); MONO % 9.1 % (0.0-10.0); NEUT # 5.5 K/uL (1.8-7.0); NEUT % 39.6 % (50.0-75.0); NRBC % 0.4 % (0.0-2.0); RBC 2.16 Mil/uL (3.80-5.20); RED CELL DISTRIBUTION WIDTH 20.6 % (11.5-14.5)
[2017-08-12 11:46] LABS: HEMOGLOBIN 6.6 g/dL (11.0-16.0)
[2017-08-12 11:58] LABS: ALB/GLOB RATIO 1.2 (1.0-2.1); ALBUMIN 3.4 g/dL (3.5-5.0); ALT/SGPT 160 U/L (9-52); AST/SGOT 76 U/L (14-36); BLOOD UREA NITROGEN 13 mg/dL (7-17); CALCIUM 8.2 mg/dl (8.6-10.4); GFR AFRICAN-AMERICAN > 60; GFR NON-AFRICAN AMERICAN > 60
--- NOTE | 2017-08-12 13:43 | CP.PCM.PN ---
<Steve Montalvo - Last Filed: 08/12/17 13:46> Subjective - Date & Time of Evaluation Date of Evaluation: 08/12/17 Time of Evaluation: 13:40 - Subjective Subjective: Progress note. Attending: Dr. Mike Louis Pt seen and examined at bedside. No acute distress. No fevers, chills, vomiting , diarrhea. Objective - Vital Signs/Intake and Output Vital Signs (last 24 hours): Temp Pulse Resp BP Pulse Ox 98.1 F 74 20 109/77 98 08/12/17 08:41 08/12/17 08:41 08/12/17 08:41 08/12/17 08:41 08/12/17 08:41 Intake and Output: 08/12/17 08/12/17 06:59 18:59 Intake Total 500 Balance 500 - Medications Medications: Current Medications Diphenhydramine HCl (Benadryl) 25 mg IVP Q3 [facility] Last Admin: 08/12/17 13:27 Dose: 25 mg Enoxaparin Sodium (Lovenox) 40 mg SC DAILY [facility] Last Admin: 08/12/17 10:21 Dose: 40 mg Folic Acid (Folic Acid) 1 mg PO DAILY [facility] Last Admin: 08/12/17 10:21 Dose: 1 mg Hydromorphone HCl (Dilaudid) 2 mg IVP Q3 PRN PRN Reason: Pain, severe (8-10) Last Admin: 08/12/17 13:28 Dose: 2 mg Hydroxyurea (Hydrea) 500 mg PO TID [facility] Last Admin: 08/12/17 10:21 Dose: 500 mg Sodium Chloride (Sodium Chloride 0.9%) 1,000 mls @ 50 mls/hr IV .Q20H [facility] Last Admin: 08/12/17 04:30 Dose: 50 mls/hr Pantoprazole Sodium (Protonix Ec Tab) 40 mg PO DAILY [facility] Last Admin: 08/12/17 10:21 Dose: 40 mg - Labs Labs: 08/12/17 11:33 08/12/17 11:33 - Constitutional Appears: Non-toxic, No Acute Distress - Head Exam Head Exam: ATRAUMATIC, NORMAL INSPECTION, NORMOCEPHALIC - Eye Exam Eye Exam: EOMI - ENT Exam ENT Exam: Mucous Membranes Moist - Neck Exam Neck Exam: Full ROM, Normal Inspection - Respiratory Exam Respiratory Exam: NORMAL BREATHING PATTERN. absent: Respiratory Distress - Cardiovascular Exam Cardiovascular Exam: +S1, +S2 - GI/Abdominal Exam GI & Abdominal Exam: Soft, Normal Bowel Sounds. absent: Tenderness - Extremities Exam Extremities Exam: Full ROM, Normal Inspection - Back Exam Back Exam: NORMAL INSPECTION - Neurological Exam Neurological Exam: Alert, Awake, Oriented x3 - Psychiatric Exam Psychiatric exam: Normal Affect, Normal Mood - Skin Skin Exam: Dry, Intact, Normal Color, Warm Assessment and Plan - Assessment and Plan (Free Text) Assessment: This is a 32 yo female with 1. Sickle cell crisis -we will monitor reticulocyte count -transfusions as necessary. -benadryl 25 mg IV q 3 hrs -dialudid as needed for pain -lovenox 40 mg SC daily -folic acid 1 mg daily -hydroxyurea -NS 50 cc/hr 2. Hepatomegaly -previous hx of hepatic lesion with hepatomegaly -continue to monitor 3. GI/DVT ppx -prophylactic vaccinations -lovenox daily SC -protonix daily PO discussed with Dr. Louis. <Enzo Louis S - Last Filed: 08/15/17 19:04> Objective - Vital Signs/Intake and Output Vital Signs (last 24 hours): Temp Pulse Resp BP Pulse Ox 98.7 F 86 20 101/59 L 98 08/15/17 07:24 08/15/17 07:24 08/15/17 07:24 08/15/17 07:24 08/15/17 07:24 - Medications Medications: Current Medications Artificial Tears (Lacri-Lube) 0 gm OU BID [facility] Last Admin: 08/15/17 10:01 Dose: 3.5 gm Diphenhydramine HCl (Benadryl) 25 mg IVP Q3 [facility] Last Admin: 08/15/17 13:04 Dose: 25 mg Enoxaparin Sodium (Lovenox) 40 mg SC DAILY [facility] Last Admin: 08/15/17 09:53 Dose: 40 mg Folic Acid (Folic Acid) 1 mg PO DAILY [facility] Last Admin: 08/15/17 09:53 Dose: 1 mg Hydromorphone HCl (Dilaudid) 2 mg IVP Q3 PRN PRN Reason: Pain, severe (8-10) Last Admin: 08/15/17 13:04 Dose: 2 mg Hydroxyurea (Hydrea) 500 mg PO TID [facility] Last Admin: 08/15/17 13:03 Dose: 500 mg Sodium Chloride (Sodium Chloride 0.9%) 1,000 mls @ 150 mls/hr IV .Q6H40M [facility] Last Admin: 08/15/17 12:35 Dose: Not Given Pantoprazole Sodium (Protonix Ec Tab) 40 mg PO DAILY [facility] Last Admin: 08/15/17 09:53 Dose: 40 mg - Labs Labs: 08/15/17 07:26 08/15/17 07:26 Assessment and Plan (1) Sickle cell anemia with pain Status: Acute (2) Abdominal pain Status: Acute (3) Abdominal pain Status: Acute (4) Abnormal LFTs Status: Acute (5) Admission for fitting of port-a-cath Status: Acute (6) Anemia Status: Acute (7) Anemia Status: Acute (8) Cannabis use disorder, mild, abuse Status: Acute (9) Chronic abdominal pain Status: Acute (10) Chronic pain Status: Acute (11) Chronic pain disorder Status: Acute (12) Contusion of back Status: Acute (13) Contusion of hip, right Status: Acute (14) Dehydration Status: Acute (15) Drug-seeking behavior Status: Acute (16) Dysfunctional uterine bleeding Status: Acute (17) Elevated LFTs Status: Acute (18) Generalized pain Status: Acute (19) Headache Status: Acute (20) Hordeolum externum (stye) Status: Acute (21) Iron overload due to repeated red blood cell transfusions Status: Acute (22) Leukocytosis Status: Acute (23) Liver lesion Status: Acute (24) Opioid abuse Status: Acute (25) Pain Status: Acute (26) Pain Status: Acute (27) Pain disorder Status: Acute (28) Pneumonia Status: Acute (29) Prophylactic measure Status: Acute (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 (31) Sickle cell anemia Status: Acute (32) Sickle cell crisis Status: Acute (33) Sickle cell crisis Status: Acute (34) Sickle cell disease Status: Acute (35) Sickle cell pain crisis Status: Acute (36) Sickle cell pain crisis Status: Acute (37) Sickle cell trait Status: Acute (38) Sickle-cell disease with pain Status: Acute (39) 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 Attending/Attestation - Attestation I have personally seen and examined this patient.: Yes I have fully participated in the care of the patient.: Yes I have reviewed all pertinent clinical information, including history, physical exam and plan: Yes Notes (Text): Case seen and discussed with the staff and the resident admitted for sickle cell crisis on pain medications
--- NOTE | 2017-08-12 15:29 | CP.PCM.PN ---
Subjective - Date & Time of Evaluation Date of Evaluation: 08/12/17 Time of Evaluation: 09:40 - Subjective Subjective: clinically same Objective - Vital Signs/Intake and Output Vital Signs (last 24 hours): Temp Pulse Resp BP Pulse Ox 98.1 F 74 20 109/77 98 08/12/17 08:41 08/12/17 08:41 08/12/17 08:41 08/12/17 08:41 08/12/17 08:41 Intake and Output: 08/12/17 08/12/17 06:59 18:59 Intake Total 500 450 Balance 500 450 - Medications Medications: Current Medications Artificial Tears (Lacri-Lube) 0 gm OU BID [facility] Diphenhydramine HCl (Benadryl) 25 mg IVP Q3 [facility] Last Admin: 08/12/17 13:27 Dose: 25 mg Enoxaparin Sodium (Lovenox) 40 mg SC DAILY [facility] Last Admin: 08/12/17 10:21 Dose: 40 mg Folic Acid (Folic Acid) 1 mg PO DAILY [facility] Last Admin: 08/12/17 10:21 Dose: 1 mg Hydromorphone HCl (Dilaudid) 2 mg IVP Q3 PRN PRN Reason: Pain, severe (8-10) Last Admin: 08/12/17 13:28 Dose: 2 mg Hydroxyurea (Hydrea) 500 mg PO TID [facility] Last Admin: 08/12/17 15:00 Dose: 500 mg Sodium Chloride (Sodium Chloride 0.9%) 1,000 mls @ 50 mls/hr IV .Q20H [facility] Last Admin: 08/12/17 04:30 Dose: 50 mls/hr Pantoprazole Sodium (Protonix Ec Tab) 40 mg PO DAILY [facility] Last Admin: 08/12/17 10:21 Dose: 40 mg - Labs Labs: 08/12/17 11:33 08/12/17 11:33 - Constitutional Appears: Well - Head Exam Head Exam: ATRAUMATIC, NORMAL INSPECTION, NORMOCEPHALIC - Eye Exam Eye Exam: EOMI, Normal appearance, PERRL Pupil Exam: NORMAL ACCOMODATION, PERRL - ENT Exam ENT Exam: Mucous Membranes Moist, Normal Exam - Neck Exam Neck Exam: Full ROM, Normal Inspection. absent: Lymphadenopathy - Respiratory Exam Respiratory Exam: Decreased Breath Sounds - Cardiovascular Exam Cardiovascular Exam: REGULAR RHYTHM, +S1, +S2 - GI/Abdominal Exam GI & Abdominal Exam: Soft, Diminished Bowel Sounds - Rectal Exam Rectal Exam: Deferred Assessment and Plan (1) Sickle cell anemia with pain Status: Acute (2) Abdominal pain Status: Acute (3) Abdominal pain Status: Acute (4) Abnormal LFTs Status: Acute (5) Admission for fitting of port-a-cath Status: Acute (6) Anemia Status: Acute (7) Anemia Status: Acute (8) Cannabis use disorder, mild, abuse Status: Acute (9) Chronic abdominal pain Status: Acute (10) Chronic pain Status: Acute (11) Chronic pain disorder Status: Acute (12) Contusion of back Status: Acute (13) Contusion of hip, right Status: Acute (14) Dehydration Status: Acute (15) Drug-seeking behavior Status: Acute (16) Dysfunctional uterine bleeding Status: Acute (17) Elevated LFTs Status: Acute (18) Generalized pain Status: Acute (19) Headache Status: Acute (20) Hordeolum externum (stye) Status: Acute (21) Iron overload due to repeated red blood cell transfusions Status: Acute (22) Leukocytosis Status: Acute (23) Liver lesion Status: Acute (24) Opioid abuse Status: Acute (25) Pain Status: Acute (26) Pain Status: Acute (27) Pain disorder Status: Acute (28) Pneumonia Status: Acute (29) Prophylactic measure Status: Acute (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 (31) Sickle cell anemia Status: Acute (32) Sickle cell crisis Status: Acute (33) Sickle cell crisis Status: Acute (34) Sickle cell disease Status: Acute (35) Sickle cell pain crisis Status: Acute (36) Sickle cell pain crisis Status: Acute (37) Sickle cell trait Status: Acute (38) Sickle-cell disease with pain Status: Acute (39) 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 Sickle cell crisis -we will monitor reticulocyte count -transfusions as necessary. -benadryl 25 mg IV q 3 hrs -dialudid as needed for pain -lovenox 40 mg SC daily -folic acid 1 mg daily -hydroxyurea -NS 50 cc/hr 2. Hepatomegaly -previous hx of hepatic lesion with hepatomegaly -continue to monitor 3. GI/DVT ppx -prophylactic vaccinations -lovenox daily SC -protonix daily PO
[2017-08-12] MEDS: White Petrolatum/Mineral Oil Ophth Oint(3.5 gm) OU SCH (17:17)
--- NOTE | 2017-08-12 21:43 | CP.PCM.CON ---
History of Present Illness - History of Present Illness History of Present Illness: 32 year old female with a history of sickle cell anemia admitted with sickle cell pain crisis. The patient reports to increasing hip and rib pain which she attributes to being exacerbated by the change in weather. Her pain was not controlled by her oral pain regimen and came to the hospital. In the ER she continued to have pain despite pain medication and was admitted for further pain control. She denies fevers, chills, headache, shortness of breath , and chest pain. Her pain is diffuse in nature and consistent with prior sickle cell pain crisis. Past medical history: Sickle cell anemia. Past surgical history: Cholecystectomy, splenectomy, portacatheter placement. Family history: Father and sister has SS disease, mother and brother have sickle cell trait. Social history: Denies tobacco, alcohol, and illicit drug use. Allergies: Oxycodone, ketorolac. Review of systems: All remaining review of systems including HEENT, cardiovascular, respiratory, gastrointestinal, genitourinary, musculoskeletal, dermatologic, and neurologic are negative unless mentioned in the HPI. Past Patient History - Infectious Disease Hx of Infectious Diseases: None - Tetanus Immunizations Tetanus Immunization: Up to Date - Past Medical History & Family History Past Medical History?: Yes - Past Social History Smoking Status: Never Smoked - CARDIAC Hx Cardiac Disorders: No - PULMONARY Hx Respiratory Disorders: Yes Hx Bronchitis: Yes Hx Pneumonia: Yes - NEUROLOGICAL Hx Neurological Disorder: No - HEENT Hx HEENT Problems: No - RENAL Hx Chronic Kidney Disease: No - ENDOCRINE/METABOLIC Hx Endocrine Disorders: No - HEMATOLOGICAL/ONCOLOGICAL Hx Blood Disorders: Yes Hx Anemia: Yes Hx Sickle Cell Disease: Yes - INTEGUMENTARY Hx Dermatological Problems: No - MUSCULOSKELETAL/RHEUMATOLOGICAL Hx Musculoskeletal Disorders: No Hx Falls: No - GASTROINTESTINAL Hx Gastrointestinal Disorders: Yes Hx Gall Bladder Disease: Yes (GB stone removed) - GENITOURINARY/GYNECOLOGICAL Hx Genitourinary Disorders: No - PSYCHIATRIC Hx Psychophysiologic Disorder: No Hx Substance Use: No - SURGICAL HISTORY Hx Surgeries: Yes Hx Cholecystectomy: Yes - ANESTHESIA Hx Anesthesia: Yes Hx Anesthesia Reactions: No Hx Malignant Hyperthermia: No Meds Allergies/Adverse Reactions: Allergies Allergy/AdvReac Type Severity Reaction Status Date / Time FISH Allergy Severe RASH Verified 08/10/17 12:45 oxycodone Allergy Severe RASH Verified 08/10/17 12:45 tramadol Allergy Severe RASH Verified 08/10/17 12:45 ketorolac Allergy Intermediate RASH Verified 08/10/17 12:45 - Medications Medications: Current Medications Artificial Tears (Lacri-Lube) 0 gm OU BID [facility] Last Admin: 08/12/17 17:17 Dose: 3.5 gm Diphenhydramine HCl (Benadryl) 25 mg IVP Q3 [facility] Last Admin: 08/12/17 19:00 Dose: 25 mg Enoxaparin Sodium (Lovenox) 40 mg SC DAILY [facility] Last Admin: 08/12/17 10:21 Dose: 40 mg Folic Acid (Folic Acid) 1 mg PO DAILY [facility] Last Admin: 08/12/17 10:21 Dose: 1 mg Hydromorphone HCl (Dilaudid) 2 mg IVP Q3 PRN PRN Reason: Pain, severe (8-10) Last Admin: 08/12/17 19:01 Dose: 2 mg Hydroxyurea (Hydrea) 500 mg PO TID [facility] Last Admin: 08/12/17 17:17 Dose: 500 mg Sodium Chloride (Sodium Chloride 0.9%) 1,000 mls @ 50 mls/hr IV .Q20H [facility] Last Admin: 08/12/17 04:30 Dose: 50 mls/hr Pantoprazole Sodium (Protonix Ec Tab) 40 mg PO DAILY [facility] Last Admin: 08/12/17 10:21 Dose: 40 mg Physical Exam - Head Exam Head Exam: ATRAUMATIC - Eye Exam Eye Exam: Normal appearance - ENT Exam ENT Exam: Mucous Membranes Dry - Respiratory Exam Respiratory Exam: NORMAL BREATHING PATTERN - Cardiovascular Exam Cardiovascular Exam: +S1, +S2 - GI/Abdominal Exam GI & Abdominal Exam: Normal Bowel Sounds - Extremities Exam Extremities exam: Positive for: normal inspection - Neurological Exam Neurological exam: Oriented x3 - Psychiatric Exam Psychiatric exam: Normal Affect, Normal Mood - Skin Skin Exam: Warm Results - Vital Signs Recent Vital Signs: Last Vital Signs Temp 98.9 F 08/12/17 19:30 Pulse 92 H 08/12/17 19:30 Resp 20 08/12/17 19:30 BP 113/56 L 08/12/17 19:30 Pulse Ox 99 08/12/17 17:51 - Labs Result Diagrams: 08/12/17 11:33 08/12/17 11:33 Labs: Laboratory Results - last 24 hr 08/12/17 08/12/17 08/12/17 11:33 11:33 14:56 WBC 14.0 H RBC 2.16 L Hgb 6.6 L Hct 19.7 L MCV 91.3 MCH 30.7 MCHC 33.6 RDW 20.6 H Plt Count 311 MPV 8.4 Neut % (Auto) 39.6 L Lymph % (Auto) 46.6 H Buchanan % (Auto) 9.1 Eos % (Auto) 4.0 Baso % (Auto) 0.7 Neut # (Auto) 5.5 Lymph # (Auto) 6.5 H Buchanan # (Auto) 1.3 H Eos # (Auto) 0.6 Baso # (Auto) 0.1 Retic Count 8.6 H D Sodium 137 Potassium 4.0 Chloride 105 Carbon Dioxide 22 Anion Gap 14 BUN 13 Creatinine 0.5 L Est GFR ( Amer) > 60 Est GFR (Non-Af Amer) > 60 Random Glucose 105 Calcium 8.2 L Total Bilirubin 1.3 AST 76 H ALT 160 H D Alkaline Phosphatase 118 Total Protein 6.3 Albumin 3.4 L Globulin 2.8 Albumin/Globulin Ratio 1.2 Blood Type A POSITIVE Antibody Screen Negative Assessment & Plan (1) Sickle cell pain crisis Assessment and Plan: IV fluids, pain meds, folic acid, 02 via NC will consider PRBC transfusion in AM Status: Acute (2) Iron overload due to repeated red blood cell transfusions Assessment and Plan: minimize transfusions outpatient chelation; pt not compliant Status: Acute (3) Leukocytosis Assessment and Plan: likely reactive to sickle cell Status: Acute (4) Sickle cell anemia Assessment and Plan: folic acid and hydrea Thank you for this interesting consult. Status: Chronic
[2017-08-13] MEDS: Sodium Chloride 0.9% 1,000 ML IV SCH ×5 (00:58→22:30)
[2017-08-13] MEDS: DiphenhydrAMINE 50 mg/ml Inj IVP SCH ×8 (01:01→22:08)
[2017-08-13 08:00] VITALS: RESP 20
[2017-08-13 08:35] LABS: BASO # 0.1 K/uL (0.0-0.2); BASO % 0.8 % (0.0-2.0); EOS # 0.5 K/uL (0.0-0.7); EOS % 4.3 % (0.0-4.0); HEMOGLOBIN 8.3 g/dL (11.0-16.0); LYMPH # 5.3 K/uL (1.0-4.3); LYMPH % 41.4 % (20.0-40.0); MEAN CORPUSCULAR HEMOGLOBIN 30.9 pg (27.0-31.0); MEAN CORPUSCULAR HGB CONC 34.8 g/dL (33.0-37.0); MEAN PLATELET VOLUME 8.3 fL (7.2-11.7); MONO # 1.2 K/uL (0.0-0.8); MONO % 9.4 % (0.0-10.0); NEUT # 5.7 K/uL (1.8-7.0); NEUT % 44.1 % (50.0-75.0); NRBC % 0.3 % (0.0-2.0); RBC 2.7 Mil/uL (3.80-5.20); RED CELL DISTRIBUTION WIDTH 17.1 % (11.5-14.5); WHITE BLOOD COUNT 12.8 K/uL (4.8-10.8)
[2017-08-13 08:37] LABS: MEAN CELL VOLUME 88.9 fL (81.0-99.0)
[2017-08-13 09:15] LABS: ALB/GLOB RATIO 1.3 (1.0-2.1); ALBUMIN 3.7 g/dL (3.5-5.0); ALT/SGPT 149 U/L (9-52); AST/SGOT 76 U/L (14-36); BLOOD UREA NITROGEN 13 mg/dL (7-17); CALCIUM 8.7 mg/dl (8.6-10.4); GFR AFRICAN-AMERICAN > 60; GFR NON-AFRICAN AMERICAN > 60
[2017-08-13] MEDS: Enoxaparin 40 mg Syringe SC SCH (10:06)
[2017-08-13] MEDS: White Petrolatum/Mineral Oil Ophth Oint(3.5 gm) OU SCH ×2 (10:06→18:00)
[2017-08-13] MEDS: Pantoprazole 40 mg EC Tab PO SCH (10:07)
--- NOTE | 2017-08-13 13:52 | CP.PCM.PN ---
Subjective - Date & Time of Evaluation Date of Evaluation: 08/13/17 Time of Evaluation: 08:00 - Subjective Subjective: clinically same Objective - Vital Signs/Intake and Output Vital Signs (last 24 hours): Temp Pulse Resp BP Pulse Ox 98.0 F 86 20 105/48 L 100 08/13/17 07:59 08/13/17 07:59 08/13/17 07:59 08/13/17 07:59 08/13/17 09:18 Intake and Output: 08/13/17 08/13/17 06:59 18:59 Intake Total 1185 Balance 1185 - Medications Medications: Current Medications Artificial Tears (Lacri-Lube) 0 gm OU BID [facility] Last Admin: 08/13/17 10:06 Dose: 3.5 gm Diphenhydramine HCl (Benadryl) 25 mg IVP Q3 [facility] Last Admin: 08/13/17 13:11 Dose: 25 mg Enoxaparin Sodium (Lovenox) 40 mg SC DAILY [facility] Last Admin: 08/13/17 10:06 Dose: 40 mg Folic Acid (Folic Acid) 1 mg PO DAILY [facility] Last Admin: 08/13/17 10:07 Dose: 1 mg Hydromorphone HCl (Dilaudid) 2 mg IVP Q3 PRN PRN Reason: Pain, severe (8-10) Last Admin: 08/13/17 13:12 Dose: 2 mg Hydroxyurea (Hydrea) 500 mg PO TID [facility] Last Admin: 08/13/17 11:00 Dose: 500 mg Sodium Chloride (Sodium Chloride 0.9%) 1,000 mls @ 50 mls/hr IV .Q20H [facility] Last Admin: 08/13/17 06:08 Dose: 50 mls/hr Pantoprazole Sodium (Protonix Ec Tab) 40 mg PO DAILY [facility] Last Admin: 08/13/17 10:07 Dose: 40 mg - Labs Labs: 08/13/17 08:24 08/13/17 08:24 - Constitutional Appears: Well - Head Exam Head Exam: ATRAUMATIC, NORMAL INSPECTION, NORMOCEPHALIC - Eye Exam Eye Exam: EOMI, Normal appearance, PERRL Pupil Exam: NORMAL ACCOMODATION, PERRL - ENT Exam ENT Exam: Mucous Membranes Moist, Normal Exam - Neck Exam Neck Exam: Full ROM, Normal Inspection. absent: Lymphadenopathy - Respiratory Exam Respiratory Exam: Decreased Breath Sounds - Cardiovascular Exam Cardiovascular Exam: REGULAR RHYTHM, +S1, +S2 - GI/Abdominal Exam GI & Abdominal Exam: Soft, Diminished Bowel Sounds - Rectal Exam Rectal Exam: Deferred Assessment and Plan (1) Sickle cell anemia with pain Status: Acute (2) Abdominal pain Status: Acute (3) Abdominal pain Status: Acute (4) Abnormal LFTs Status: Acute (5) Admission for fitting of port-a-cath Status: Acute (6) Anemia Status: Acute (7) Anemia Status: Acute (8) Cannabis use disorder, mild, abuse Status: Acute (9) Chronic abdominal pain Status: Acute (10) Chronic pain Status: Acute (11) Chronic pain disorder Status: Acute (12) Contusion of back Status: Acute (13) Contusion of hip, right Status: Acute (14) Dehydration Status: Acute (15) Drug-seeking behavior Status: Acute (16) Dysfunctional uterine bleeding Status: Acute (17) Elevated LFTs Status: Acute (18) Generalized pain Status: Acute (19) Headache Status: Acute (20) Hordeolum externum (stye) Status: Acute (21) Iron overload due to repeated red blood cell transfusions Status: Acute (22) Leukocytosis Status: Acute (23) Liver lesion Status: Acute (24) Opioid abuse Status: Acute (25) Pain Status: Acute (26) Pain Status: Acute (27) Pain disorder Status: Acute (28) Pneumonia Status: Acute (29) Prophylactic measure Status: Acute (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 (31) Sickle cell anemia Status: Acute (32) Sickle cell crisis Status: Acute (33) Sickle cell crisis Status: Acute (34) Sickle cell disease Status: Acute (35) Sickle cell pain crisis Status: Acute (36) Sickle cell pain crisis Status: Acute (37) Sickle cell trait Status: Acute (38) Sickle-cell disease with pain Status: Acute (39) 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 - Assessment and Plan (Free Text) Plan: Sickle cell crisis -we will monitor reticulocyte count -transfusions as necessary; patient normally lives around 8-9 hbg patient is at 8.3 right now if stable tomorrow patient can be d/c and f/u with heme onc for further management -benadryl 25 mg IV q 3 hrs -dialudid as needed for pain -lovenox 40 mg SC daily -folic acid 1 mg daily -hydroxyurea -NS 150 cc/hr -heme/onc consult appreciated; thank you for your help Hepatomegaly -previous hx of hepatic lesion with hepatomegaly -continue to monitor -recommend outpatient followup with GI GI/DVT ppx -prophylactic vaccinations -lovenox daily SC
--- NOTE | 2017-08-13 13:55 | CP.PCM.PN ---
<Stanley Williamson - Last Filed: 08/13/17 13:51> Subjective - Date & Time of Evaluation Date of Evaluation: 08/13/17 Time of Evaluation: 13:54 - Subjective Subjective: PGY2 Medicine Note for Dr. Ariel Warner; all management as per Dr. Ariel warner patient seen and examined at bedside this AM; denies any acute complaints and states pain is much more tolerable at this point; denies any fevers/chills, MAXWELL, CP, SOB, abdominal pain, N/V/d, dysuria/freq/urg or lower extremity pain/ swelling. Objective - Vital Signs/Intake and Output Vital Signs (last 24 hours): Temp Pulse Resp BP Pulse Ox 98.0 F 86 20 105/48 L 100 08/13/17 07:59 08/13/17 07:59 08/13/17 07:59 08/13/17 07:59 08/13/17 09:18 Intake and Output: 08/13/17 08/13/17 06:59 18:59 Intake Total 1185 Balance 1185 - Medications Medications: Current Medications Artificial Tears (Lacri-Lube) 0 gm OU BID [facility] Last Admin: 08/13/17 10:06 Dose: 3.5 gm Diphenhydramine HCl (Benadryl) 25 mg IVP Q3 [facility] Last Admin: 08/13/17 13:11 Dose: 25 mg Enoxaparin Sodium (Lovenox) 40 mg SC DAILY [facility] Last Admin: 08/13/17 10:06 Dose: 40 mg Folic Acid (Folic Acid) 1 mg PO DAILY [facility] Last Admin: 08/13/17 10:07 Dose: 1 mg Hydromorphone HCl (Dilaudid) 2 mg IVP Q3 PRN PRN Reason: Pain, severe (8-10) Last Admin: 08/13/17 13:12 Dose: 2 mg Hydroxyurea (Hydrea) 500 mg PO TID [facility] Last Admin: 08/13/17 11:00 Dose: 500 mg Sodium Chloride (Sodium Chloride 0.9%) 1,000 mls @ 50 mls/hr IV .Q20H [facility] Last Admin: 08/13/17 06:08 Dose: 50 mls/hr Pantoprazole Sodium (Protonix Ec Tab) 40 mg PO DAILY [facility] Last Admin: 08/13/17 10:07 Dose: 40 mg - Labs Labs: 08/13/17 08:24 08/13/17 08:24 - Constitutional Appears: Non-toxic - Head Exam Head Exam: ATRAUMATIC - Eye Exam Eye Exam: EOMI, PERRL - ENT Exam ENT Exam: Mucous Membranes Moist - Neck Exam Neck Exam: Full ROM. absent: Lymphadenopathy - Respiratory Exam Respiratory Exam: Clear to Ausculation Bilateral, NORMAL BREATHING PATTERN. absent: Rales, Rhonchi, Wheezes - Cardiovascular Exam Cardiovascular Exam: REGULAR RHYTHM - GI/Abdominal Exam GI & Abdominal Exam: Soft, Normal Bowel Sounds. absent: Tenderness (surgical scars present from open splenectomy ) - Rectal Exam Rectal Exam: Deferred - Extremities Exam Extremities Exam: Full ROM. absent: Calf Tenderness - Back Exam Back Exam: absent: CVA tenderness (L), CVA tenderness (R) - Neurological Exam Neurological Exam: Alert, Awake - Skin Skin Exam: Warm Assessment and Plan - Assessment and Plan (Free Text) Assessment: This is a 32 yo female admitted for sickle cell crisis Sickle cell crisis -we will monitor reticulocyte count -transfusions as necessary; patient normally lives around 8-9 hbg patient is at 8.3 right now if stable tomorrow patient can be d/c and f/u with heme onc for further management -benadryl 25 mg IV q 3 hrs -dialudid as needed for pain -lovenox 40 mg SC daily -folic acid 1 mg daily -hydroxyurea -NS 150 cc/hr -heme/onc consult appreciated; thank you for your help Hepatomegaly -previous hx of hepatic lesion with hepatomegaly -continue to monitor -recommend outpatient followup with GI GI/DVT ppx -prophylactic vaccinations -lovenox daily SC -protonix daily PO discussed with Dr. Ariel Warner; all management as per Dr. Ariel Warner <Enzo Warner S - Last Filed: 08/15/17 19:05> Objective - Vital Signs/Intake and Output Vital Signs (last 24 hours): Temp Pulse Resp BP Pulse Ox 98.7 F 86 20 101/59 L 98 08/15/17 07:24 08/15/17 07:24 08/15/17 07:24 08/15/17 07:24 08/15/17 07:24 - Medications Medications: Current Medications Artificial Tears (Lacri-Lube) 0 gm OU BID [facility] Last Admin: 08/15/17 10:01 Dose: 3.5 gm Diphenhydramine HCl (Benadryl) 25 mg IVP Q3 [facility] Last Admin: 08/15/17 13:04 Dose: 25 mg Enoxaparin Sodium (Lovenox) 40 mg SC DAILY [facility] Last Admin: 08/15/17 09:53 Dose: 40 mg Folic Acid (Folic Acid) 1 mg PO DAILY [facility] Last Admin: 08/15/17 09:53 Dose: 1 mg Hydromorphone HCl (Dilaudid) 2 mg IVP Q3 PRN PRN Reason: Pain, severe (8-10) Last Admin: 08/15/17 13:04 Dose: 2 mg Hydroxyurea (Hydrea) 500 mg PO TID [facility] Last Admin: 08/15/17 13:03 Dose: 500 mg Sodium Chloride (Sodium Chloride 0.9%) 1,000 mls @ 150 mls/hr IV .Q6H40M [facility] Last Admin: 08/15/17 12:35 Dose: Not Given Pantoprazole Sodium (Protonix Ec Tab) 40 mg PO DAILY [facility] Last Admin: 08/15/17 09:53 Dose: 40 mg - Labs Labs: 08/15/17 07:26 08/15/17 07:26 Assessment and Plan (1) Sickle cell anemia with pain Status: Acute (2) Abdominal pain Status: Acute (3) Abdominal pain Status: Acute (4) Abnormal LFTs Status: Acute (5) Admission for fitting of port-a-cath Status: Acute (6) Anemia Status: Acute (7) Anemia Status: Acute (8) Cannabis use disorder, mild, abuse Status: Acute (9) Chronic abdominal pain Status: Acute (10) Chronic pain Status: Acute (11) Chronic pain disorder Status: Acute (12) Contusion of back Status: Acute (13) Contusion of hip, right Status: Acute (14) Dehydration Status: Acute (15) Drug-seeking behavior Status: Acute (16) Dysfunctional uterine bleeding Status: Acute (17) Elevated LFTs Status: Acute (18) Generalized pain Status: Acute (19) Headache Status: Acute (20) Hordeolum externum (stye) Status: Acute (21) Iron overload due to repeated red blood cell transfusions Status: Acute (22) Leukocytosis Status: Acute (23) Liver lesion Status: Acute (24) Opioid abuse Status: Acute (25) Pain Status: Acute (26) Pain Status: Acute (27) Pain disorder Status: Acute (28) Pneumonia Status: Acute (29) Prophylactic measure Status: Acute (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 (31) Sickle cell anemia Status: Acute (32) Sickle cell crisis Status: Acute (33) Sickle cell crisis Status: Acute (34) Sickle cell disease Status: Acute (35) Sickle cell pain crisis Status: Acute (36) Sickle cell pain crisis Status: Acute (37) Sickle cell trait Status: Acute (38) Sickle-cell disease with pain Status: Acute (39) 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 Attending/Attestation - Attestation I have personally seen and examined this patient.: Yes I have fully participated in the care of the patient.: Yes I have reviewed all pertinent clinical information, including history, physical exam and plan: Yes Notes (Text): Case seen and discussed with the staff and the resident pain is better patient is stable patient is with the family member
--- NOTE | 2017-08-13 22:14 | CP.PCM.PN ---
Subjective - Date & Time of Evaluation Date of Evaluation: 08/13/17 Time of Evaluation: 13:00 - Subjective Subjective: Has pain in bones Objective - Vital Signs/Intake and Output Vital Signs (last 24 hours): Temp Pulse Resp BP Pulse Ox 99 F 101 H 20 111/63 98 08/13/17 16:00 08/13/17 16:00 08/13/17 16:00 08/13/17 16:00 08/13/17 16:00 Intake and Output: 08/13/17 08/14/17 18:59 06:59 Intake Total 780 Balance 780 - Medications Medications: Current Medications Artificial Tears (Lacri-Lube) 0 gm OU BID [facility] Last Admin: 08/13/17 10:06 Dose: 3.5 gm Diphenhydramine HCl (Benadryl) 25 mg IVP Q3 [facility] Last Admin: 08/13/17 19:15 Dose: 25 mg Enoxaparin Sodium (Lovenox) 40 mg SC DAILY [facility] Last Admin: 08/13/17 10:06 Dose: 40 mg Folic Acid (Folic Acid) 1 mg PO DAILY [facility] Last Admin: 08/13/17 10:07 Dose: 1 mg Hydromorphone HCl (Dilaudid) 2 mg IVP Q3 PRN PRN Reason: Pain, severe (8-10) Last Admin: 08/13/17 19:17 Dose: 2 mg Hydroxyurea (Hydrea) 500 mg PO TID [facility] Last Admin: 08/13/17 17:44 Dose: 500 mg Sodium Chloride (Sodium Chloride 0.9%) 1,000 mls @ 150 mls/hr IV .Q6H40M [facility] Last Admin: 08/13/17 14:30 Dose: 150 mls/hr Pantoprazole Sodium (Protonix Ec Tab) 40 mg PO DAILY [facility] Last Admin: 08/13/17 10:07 Dose: 40 mg - Labs Labs: 08/13/17 08:24 08/13/17 08:24 - Head Exam Head Exam: ATRAUMATIC - Eye Exam Eye Exam: Normal appearance - ENT Exam ENT Exam: Mucous Membranes Dry - Respiratory Exam Respiratory Exam: NORMAL BREATHING PATTERN - Cardiovascular Exam Cardiovascular Exam: +S1, +S2 - GI/Abdominal Exam GI & Abdominal Exam: Normal Bowel Sounds Assessment and Plan (1) Sickle cell pain crisis Assessment & Plan: IV fluids, pain meds, folic acid, 02 via NC s/p PRBC transfusion Status: Acute (2) Iron overload due to repeated red blood cell transfusions Assessment & Plan: minimize transfusion support outpatient chelation; not compliant Status: Acute (3) Leukocytosis Assessment & Plan: improving likely secondary to sickle cell Status: Acute (4) Sickle cell anemia Assessment & Plan: folic acid and hydrea Status: Chronic
[2017-08-14] MEDS: DiphenhydrAMINE 50 mg/ml Inj IVP SCH ×8 (01:04→22:15)
[2017-08-14] MEDS: Sodium Chloride 0.9% 1,000 ML IV SCH ×4 (05:00→18:58)
[2017-08-14] MEDS: Enoxaparin 40 mg Syringe SC SCH (10:10)
[2017-08-14] MEDS: Pantoprazole 40 mg EC Tab PO SCH (10:11)
[2017-08-14] MEDS: White Petrolatum/Mineral Oil Ophth Oint(3.5 gm) OU SCH ×2 (10:12→18:52)
[2017-08-14 11:52] LABS: BASO # 0.1 K/uL (0.0-0.2); EOS # 0.4 K/uL (0.0-0.7); EOS % 3.2 % (0.0-4.0); LYMPH # 4.4 K/uL (1.0-4.3); LYMPH % 39.9 % (20.0-40.0); MEAN CELL VOLUME 89.2 fL (81.0-99.0); MEAN CORPUSCULAR HEMOGLOBIN 30.5 pg (27.0-31.0); MEAN CORPUSCULAR HGB CONC 34.2 g/dL (33.0-37.0); MEAN PLATELET VOLUME 7.9 fL (7.2-11.7); MONO # 0.8 K/uL (0.0-0.8); MONO % 7.4 % (0.0-10.0); NEUT # 5.4 K/uL (1.8-7.0); NEUT % 48.5 % (50.0-75.0); NRBC % 0.2 % (0.0-2.0); RBC 2.63 Mil/uL (3.80-5.20); RED CELL DISTRIBUTION WIDTH 17.6 % (11.5-14.5); WHITE BLOOD COUNT 11.1 K/uL (4.8-10.8)
[2017-08-14 12:04] LABS: ALB/GLOB RATIO 1.1 (1.0-2.1); ALBUMIN 3.3 g/dL (3.5-5.0); ALT/SGPT 167 U/L (9-52); AST/SGOT 91 U/L (14-36); BLOOD UREA NITROGEN 11 mg/dL (7-17); CALCIUM 8.5 mg/dl (8.6-10.4); GFR AFRICAN-AMERICAN > 60; GFR NON-AFRICAN AMERICAN > 60; MAGNESIUM 1.6 mg/dL (1.6-2.3)
--- NOTE | 2017-08-14 12:42 | CP.PCM.PN ---
<Paul Canseco - Last Filed: 08/14/17 14:27> Subjective - Date & Time of Evaluation Date of Evaluation: 08/14/17 Time of Evaluation: 07:10 - Subjective Subjective: PGY2 Medicine Note for Dr. Ariel Louis Patient seen and examined at bedside this AM; denies any acute complaints and states pain is tolerable. She received 2x PRBC transfusions successfully however reports continued lethargy. She is not SOB and is resting comfortably. She has been tolerating her diet and having normal BM's. Currently denies f/c, MAXWELL, chest pain, SOB, abdominal pain, N/V/d, dysuria, or any additional acute complaints. Objective - Vital Signs/Intake and Output Vital Signs (last 24 hours): Temp Pulse Resp BP Pulse Ox 98.8 F 71 20 105/63 99 08/14/17 08:00 08/14/17 08:00 08/14/17 08:00 08/14/17 08:00 08/14/17 08:00 Intake and Output: 08/14/17 08/14/17 06:59 18:59 Intake Total 1200 1600 Balance 1200 1600 - Medications Medications: Current Medications Artificial Tears (Lacri-Lube) 0 gm OU BID [facility] Last Admin: 08/14/17 10:12 Dose: 3.5 gm Diphenhydramine HCl (Benadryl) 25 mg IVP Q3 [facility] Last Admin: 08/14/17 10:05 Dose: 25 mg Enoxaparin Sodium (Lovenox) 40 mg SC DAILY [facility] Last Admin: 08/14/17 10:10 Dose: 40 mg Folic Acid (Folic Acid) 1 mg PO DAILY [facility] Last Admin: 08/14/17 10:11 Dose: 1 mg Hydromorphone HCl (Dilaudid) 2 mg IVP Q3 PRN PRN Reason: Pain, severe (8-10) Last Admin: 08/14/17 10:06 Dose: 2 mg Hydroxyurea (Hydrea) 500 mg PO TID [facility] Last Admin: 08/14/17 10:15 Dose: 500 mg Sodium Chloride (Sodium Chloride 0.9%) 1,000 mls @ 150 mls/hr IV .Q6H40M [facility] Last Admin: 08/14/17 10:13 Dose: Not Given Pantoprazole Sodium (Protonix Ec Tab) 40 mg PO DAILY [facility] Last Admin: 08/14/17 10:11 Dose: 40 mg - Labs Labs: 08/14/17 11:32 08/14/17 11:32 - Additional Findings Additional findings: - Constitutional Appears: Non-toxic - Head Exam Head Exam: ATRAUMATIC - Eye Exam Eye Exam: EOMI, PERRL - ENT Exam ENT Exam: Mucous Membranes Moist - Neck Exam Neck Exam: Full ROM. absent: Lymphadenopathy - Respiratory Exam Respiratory Exam: Clear to Ausculation Bilateral, NORMAL BREATHING PATTERN. absent: Rales, Rhonchi, Wheezes - Cardiovascular Exam Cardiovascular Exam: REGULAR RHYTHM - GI/Abdominal Exam GI & Abdominal Exam: Soft, Normal Bowel Sounds. absent: Tenderness (surgical scars present from open splenectomy ) - Rectal Exam Rectal Exam: Deferred - Extremities Exam Extremities Exam: Full ROM. absent: Calf Tenderness - Back Exam Back Exam: absent: CVA tenderness (L), CVA tenderness (R) - Neurological Exam Neurological Exam: Alert, Awake Assessment and Plan - Assessment and Plan (Free Text) Assessment: This is a 32 yo female admitted for sickle cell crisis Sickle cell crisis 08/14: Hgb 8.0, decreased from 8.3; pt lethargic. continue to monitor. -we will monitor reticulocyte count -transfusions as necessary; patient normally lives around 8-9 hbg patient is at 8.3 right now if stable tomorrow patient can be d/c and f/u with heme onc for further management -benadryl 25 mg IV q 3 hrs -dialudid as needed for pain -lovenox 40 mg SC daily -folic acid 1 mg daily -hydroxyurea -NS 150 cc/hr -heme/onc consult appreciated; thank you for your help HemeOnc consult, Dr. braden, f/u recs. Hepatomegaly -previous hx of hepatic lesion with hepatomegaly -continue to monitor -recommend outpatient followup with GI Transaminitis /: LFTs steadily rising over the last 3 days. Patient has a history of fluctuating LFTs over several years Likely 2/2 Hydroxyurea administration f/u hepatitis panel Leukocytosis improving - likely secondary to sickle cell HemeOnc consult, Dr. braden, f/u recs. GI/DVT ppx -prophylactic vaccinations -lovenox daily SC -protonix daily PO Disposition: monitor LFT, f/u hepatitis panel. Possible discharge this weekend pending cause of elevated LFTs discussed with Dr. Ariel Louis; all management as per Dr. Ariel Louis <HeribertoMallygladysshirajessica S - Last Filed: 08/15/17 19:03> Objective - Vital Signs/Intake and Output Vital Signs (last 24 hours): Temp Pulse Resp BP Pulse Ox 98.7 F 86 20 101/59 L 98 08/15/17 07:24 08/15/17 07:24 08/15/17 07:24 08/15/17 07:24 08/15/17 07:24 - Medications Medications: Current Medications Artificial Tears (Lacri-Lube) 0 gm OU BID [facility] Last Admin: 08/15/17 10:01 Dose: 3.5 gm Diphenhydramine HCl (Benadryl) 25 mg IVP Q3 [facility] Last Admin: 08/15/17 13:04 Dose: 25 mg Enoxaparin Sodium (Lovenox) 40 mg SC DAILY [facility] Last Admin: 08/15/17 09:53 Dose: 40 mg Folic Acid (Folic Acid) 1 mg PO DAILY [facility] Last Admin: 08/15/17 09:53 Dose: 1 mg Hydromorphone HCl (Dilaudid) 2 mg IVP Q3 PRN PRN Reason: Pain, severe (8-10) Last Admin: 08/15/17 13:04 Dose: 2 mg Hydroxyurea (Hydrea) 500 mg PO TID [facility] Last Admin: 08/15/17 13:03 Dose: 500 mg Sodium Chloride (Sodium Chloride 0.9%) 1,000 mls @ 150 mls/hr IV .Q6H40M [facility] Last Admin: 08/15/17 12:35 Dose: Not Given Pantoprazole Sodium (Protonix Ec Tab) 40 mg PO DAILY [facility] Last Admin: 08/15/17 09:53 Dose: 40 mg - Labs Labs: 08/15/17 07:26 08/15/17 07:26 Assessment and Plan (1) Sickle cell anemia with pain Status: Acute (2) Abdominal pain Status: Acute (3) Abdominal pain Status: Acute (4) Abnormal LFTs Status: Acute (5) Admission for fitting of port-a-cath Status: Acute (6) Anemia Status: Acute (7) Anemia Status: Acute (8) Cannabis use disorder, mild, abuse Status: Acute (9) Chronic abdominal pain Status: Acute (10) Chronic pain Status: Acute (11) Chronic pain disorder Status: Acute (12) Contusion of back Status: Acute (13) Contusion of hip, right Status: Acute (14) Dehydration Status: Acute (15) Drug-seeking behavior Status: Acute (16) Dysfunctional uterine bleeding Status: Acute (17) Elevated LFTs Status: Acute (18) Generalized pain Status: Acute (19) Headache Status: Acute (20) Hordeolum externum (stye) Status: Acute (21) Iron overload due to repeated red blood cell transfusions Status: Acute (22) Leukocytosis Status: Acute (23) Liver lesion Status: Acute (24) Opioid abuse Status: Acute (25) Pain Status: Acute (26) Pain Status: Acute (27) Pain disorder Status: Acute (28) Pneumonia Status: Acute (29) Prophylactic measure Status: Acute (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 (31) Sickle cell anemia Status: Acute (32) Sickle cell crisis Status: Acute (33) Sickle cell crisis Status: Acute (34) Sickle cell disease Status: Acute (35) Sickle cell pain crisis Status: Acute (36) Sickle cell pain crisis Status: Acute (37) Sickle cell trait Status: Acute (38) Sickle-cell disease with pain Status: Acute (39) 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 Attending/Attestation - Attestation I have personally seen and examined this patient.: Yes I have fully participated in the care of the patient.: Yes I have reviewed all pertinent clinical information, including history, physical exam and plan: Yes Notes (Text): Casein and discussed with the staff and status post to light to PRBCs For discharge Monitored LFTs Discharge over the weekend possible
--- NOTE | 2017-08-14 16:42 | CP.PCM.PN ---
Subjective - Date & Time of Evaluation Date of Evaluation: 08/14/17 Time of Evaluation: 07:40 - Subjective Subjective: clinically same Objective - Vital Signs/Intake and Output Vital Signs (last 24 hours): Temp Pulse Resp BP Pulse Ox 98.8 F 71 20 105/63 99 08/14/17 08:00 08/14/17 08:00 08/14/17 08:00 08/14/17 08:00 08/14/17 08:00 Intake and Output: 08/14/17 08/14/17 06:59 18:59 Intake Total 1200 3300 Balance 1200 3300 - Medications Medications: Current Medications Artificial Tears (Lacri-Lube) 0 gm OU BID [facility] Last Admin: 08/14/17 10:12 Dose: 3.5 gm Diphenhydramine HCl (Benadryl) 25 mg IVP Q3 [facility] Last Admin: 08/14/17 16:24 Dose: 25 mg Enoxaparin Sodium (Lovenox) 40 mg SC DAILY [facility] Last Admin: 08/14/17 10:10 Dose: 40 mg Folic Acid (Folic Acid) 1 mg PO DAILY [facility] Last Admin: 08/14/17 10:11 Dose: 1 mg Hydromorphone HCl (Dilaudid) 2 mg IVP Q3 PRN PRN Reason: Pain, severe (8-10) Last Admin: 08/14/17 16:23 Dose: 2 mg Hydroxyurea (Hydrea) 500 mg PO TID [facility] Last Admin: 08/14/17 13:14 Dose: 500 mg Sodium Chloride (Sodium Chloride 0.9%) 1,000 mls @ 150 mls/hr IV .Q6H40M [facility] Last Admin: 08/14/17 10:13 Dose: Not Given Pantoprazole Sodium (Protonix Ec Tab) 40 mg PO DAILY [facility] Last Admin: 08/14/17 10:11 Dose: 40 mg - Labs Labs: 08/14/17 11:32 08/14/17 11:32 - Constitutional Appears: Well - Head Exam Head Exam: ATRAUMATIC, NORMAL INSPECTION, NORMOCEPHALIC - Eye Exam Eye Exam: EOMI, Normal appearance, PERRL Pupil Exam: NORMAL ACCOMODATION, PERRL - ENT Exam ENT Exam: Mucous Membranes Moist, Normal Exam - Neck Exam Neck Exam: Full ROM, Normal Inspection. absent: Lymphadenopathy - Respiratory Exam Respiratory Exam: Decreased Breath Sounds - Cardiovascular Exam Cardiovascular Exam: REGULAR RHYTHM, +S1, +S2 - GI/Abdominal Exam GI & Abdominal Exam: Soft, Diminished Bowel Sounds - Rectal Exam Rectal Exam: Deferred Assessment and Plan (1) Sickle cell anemia with pain Status: Acute (2) Abdominal pain Status: Acute (3) Abdominal pain Status: Acute (4) Abnormal LFTs Status: Acute (5) Admission for fitting of port-a-cath Status: Acute (6) Anemia Status: Acute (7) Anemia Status: Acute (8) Cannabis use disorder, mild, abuse Status: Acute (9) Chronic abdominal pain Status: Acute (10) Chronic pain Status: Acute (11) Chronic pain disorder Status: Acute (12) Contusion of back Status: Acute (13) Contusion of hip, right Status: Acute (14) Dehydration Status: Acute (15) Drug-seeking behavior Status: Acute (16) Dysfunctional uterine bleeding Status: Acute (17) Elevated LFTs Status: Acute (18) Generalized pain Status: Acute (19) Headache Status: Acute (20) Hordeolum externum (stye) Status: Acute (21) Iron overload due to repeated red blood cell transfusions Status: Acute (22) Leukocytosis Status: Acute (23) Liver lesion Status: Acute (24) Opioid abuse Status: Acute (25) Pain Status: Acute (26) Pain Status: Acute (27) Pain disorder Status: Acute (28) Pneumonia Status: Acute (29) Prophylactic measure Status: Acute (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 (31) Sickle cell anemia Status: Acute (32) Sickle cell crisis Status: Acute (33) Sickle cell crisis Status: Acute (34) Sickle cell disease Status: Acute (35) Sickle cell pain crisis Status: Acute (36) Sickle cell pain crisis Status: Acute (37) Sickle cell trait Status: Acute (38) Sickle-cell disease with pain Status: Acute (39) 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 - Assessment and Plan (Free Text) Plan: Sickle cell crisis 3/2: Hgb 8.0, decreased from 8.3; pt lethargic. continue to monitor. -we will monitor reticulocyte count -transfusions as necessary; patient normally lives around 8-9 hbg patient is at 8.3 right now if stable tomorrow patient can be d/c and f/u with heme onc for further management -benadryl 25 mg IV q 3 hrs -dialudid as needed for pain -lovenox 40 mg SC daily -folic acid 1 mg daily -hydroxyurea -NS 150 cc/hr -heme/onc consult appreciated; thank you for your help HemeOnc consult, Dr. braden, f/u recs. Hepatomegaly -previous hx of hepatic lesion with hepatomegaly -continue to monitor -recommend outpatient followup with GI Transaminitis 3/2: LFTs steadily rising over the last 3 days. Patient has a history of fluctuating LFTs over several years Likely 2/2 Hydroxyurea administration f/u hepatitis panel Leukocytosis improving - likely secondary to sickle cell HemeOnc consult, Dr. braden, f/u recs. GI/DVT ppx -prophylactic vaccinations -lovenox daily SC -protonix daily PO Disposition: monitor LFT, f/u hepatitis panel. Possible discharge this weekend pending cause of elevated LFTs
--- NOTE | 2017-08-14 21:19 | CP.PCM.PN ---
Subjective - Date & Time of Evaluation Date of Evaluation: 08/14/17 Time of Evaluation: 13:05 - Subjective Subjective: Feels weak Objective - Vital Signs/Intake and Output Vital Signs (last 24 hours): Temp Pulse Resp BP Pulse Ox 97.7 F 90 20 116/75 94 L 08/14/17 16:00 08/14/17 16:00 08/14/17 16:00 08/14/17 16:00 08/14/17 16:00 Intake and Output: 08/14/17 08/15/17 18:59 06:59 Intake Total 3300 Balance 3300 - Medications Medications: Current Medications Artificial Tears (Lacri-Lube) 0 gm OU BID [facility] Last Admin: 08/14/17 18:52 Dose: 3.5 gm Diphenhydramine HCl (Benadryl) 25 mg IVP Q3 [facility] Last Admin: 08/14/17 18:59 Dose: 25 mg Enoxaparin Sodium (Lovenox) 40 mg SC DAILY [facility] Last Admin: 08/14/17 10:10 Dose: 40 mg Folic Acid (Folic Acid) 1 mg PO DAILY [facility] Last Admin: 08/14/17 10:11 Dose: 1 mg Hydromorphone HCl (Dilaudid) 2 mg IVP Q3 PRN PRN Reason: Pain, severe (8-10) Last Admin: 08/14/17 19:15 Dose: 2 mg Hydroxyurea (Hydrea) 500 mg PO TID [facility] Last Admin: 08/14/17 18:56 Dose: 500 mg Sodium Chloride (Sodium Chloride 0.9%) 1,000 mls @ 150 mls/hr IV .Q6H40M [facility] Last Admin: 08/14/17 18:58 Dose: 150 mls/hr Pantoprazole Sodium (Protonix Ec Tab) 40 mg PO DAILY [facility] Last Admin: 08/14/17 10:11 Dose: 40 mg - Labs Labs: 08/14/17 11:32 08/14/17 11:32 - Head Exam Head Exam: ATRAUMATIC - Eye Exam Eye Exam: Normal appearance - ENT Exam ENT Exam: Mucous Membranes Dry - Respiratory Exam Respiratory Exam: NORMAL BREATHING PATTERN - Cardiovascular Exam Cardiovascular Exam: +S1, +S2 - GI/Abdominal Exam GI & Abdominal Exam: Normal Bowel Sounds Assessment and Plan (1) Sickle cell pain crisis Assessment & Plan: IV fluids, pain meds, folic acid, 02 via NC s/p 2U PRBC Status: Acute (2) Iron overload due to repeated red blood cell transfusions Assessment & Plan: minimize transfusion support outpatient chelation; not compliant Status: Acute (3) Leukocytosis Assessment & Plan: reactive to sickle cell Status: Acute (4) Sickle cell anemia Assessment & Plan: folic acid and hydrea Status: Chronic
[2017-08-15] MEDS: DiphenhydrAMINE 50 mg/ml Inj IVP SCH ×5 (01:14→13:04)
[2017-08-15] MEDS: Sodium Chloride 0.9% 1,000 ML IV SCH ×4 (05:00→12:35)
[2017-08-15 07:28] VITALS: BP 101/59; PULSE 86; TEMP 98.7; O2SAT 98
[2017-08-15 07:39] LABS: BASO # 0.1 K/uL (0.0-0.2); BASO % 0.9 % (0.0-2.0); EOS # 0.5 K/uL (0.0-0.7); EOS % 4.2 % (0.0-4.0); HEMOGLOBIN 8.2 g/dL (11.0-16.0); LYMPH # 4.7 K/uL (1.0-4.3); LYMPH % 43.9 % (20.0-40.0); MEAN CELL VOLUME 89.2 fL (81.0-99.0); MEAN CORPUSCULAR HEMOGLOBIN 30.4 pg (27.0-31.0); MEAN CORPUSCULAR HGB CONC 34.1 g/dL (33.0-37.0); MEAN PLATELET VOLUME 7.9 fL (7.2-11.7); MONO # 0.9 K/uL (0.0-0.8); MONO % 8.3 % (0.0-10.0); NEUT # 4.5 K/uL (1.8-7.0); NEUT % 42.7 % (50.0-75.0); NRBC % 0.4 % (0.0-2.0); RBC 2.69 Mil/uL (3.80-5.20); RED CELL DISTRIBUTION WIDTH 16.6 % (11.5-14.5); WHITE BLOOD COUNT 10.6 K/uL (4.8-10.8)
[2017-08-15 08:00] LABS: ALB/GLOB RATIO 1.2 (1.0-2.1); ALBUMIN 3.5 g/dL (3.5-5.0); ALT/SGPT 155 U/L (9-52); AST/SGOT 87 U/L (14-36); BLOOD UREA NITROGEN 10 mg/dL (7-17); CALCIUM 8.2 mg/dl (8.6-10.4); GFR AFRICAN-AMERICAN > 60; GFR NON-AFRICAN AMERICAN > 60; MAGNESIUM 1.7 mg/dL (1.6-2.3)
[2017-08-15 08:23] LABS: HEPATITIS B SURFACE AG Negative (NEGATIVE)
[2017-08-15 08:31] LABS: HEPATITIS A IGM NEGATIVE (NEGATIVE); HEPATITIS B CORE AB NEGATIVE (NEGATIVE)
[2017-08-15 08:40] LABS: HEPATITIS C ANTIBODY NEGATIVE (NEGATIVE)
[2017-08-15] MEDS: Pantoprazole 40 mg EC Tab PO SCH (09:53)
[2017-08-15] MEDS: Enoxaparin 40 mg Syringe SC SCH (09:53)
[2017-08-15] MEDS: White Petrolatum/Mineral Oil Ophth Oint(3.5 gm) OU SCH (10:01)
--- NOTE | 2017-08-15 13:52 | CP.PCM.PN ---
Subjective - Date & Time of Evaluation Date of Evaluation: 08/15/17 Time of Evaluation: 13:51 - Subjective Subjective: PATIENT WAS ADMITTED FOR SICKLE CELL CRISIS AAOX3; DENIES ANY PAIN; DENIES CHEST PAIN OR SOG NO SIGN OF ACUTE DISTRESS NOTED Objective - Vital Signs/Intake and Output Vital Signs (last 24 hours): Temp Pulse Resp BP Pulse Ox 98.7 F 86 20 101/59 L 98 08/15/17 07:24 08/15/17 07:24 08/15/17 07:24 08/15/17 07:24 08/15/17 07:24 Intake and Output: 08/15/17 08/15/17 06:59 18:59 Intake Total 3000 Balance 3000 - Medications Medications: Current Medications Artificial Tears (Lacri-Lube) 0 gm OU BID [facility] Last Admin: 08/15/17 10:01 Dose: 3.5 gm Diphenhydramine HCl (Benadryl) 25 mg IVP Q3 [facility] Last Admin: 08/15/17 13:04 Dose: 25 mg Enoxaparin Sodium (Lovenox) 40 mg SC DAILY [facility] Last Admin: 08/15/17 09:53 Dose: 40 mg Folic Acid (Folic Acid) 1 mg PO DAILY [facility] Last Admin: 08/15/17 09:53 Dose: 1 mg Hydromorphone HCl (Dilaudid) 2 mg IVP Q3 PRN PRN Reason: Pain, severe (8-10) Last Admin: 08/15/17 13:04 Dose: 2 mg Hydroxyurea (Hydrea) 500 mg PO TID [facility] Last Admin: 08/15/17 13:03 Dose: 500 mg Sodium Chloride (Sodium Chloride 0.9%) 1,000 mls @ 150 mls/hr IV .Q6H40M [facility] Last Admin: 08/15/17 12:35 Dose: Not Given Pantoprazole Sodium (Protonix Ec Tab) 40 mg PO DAILY [facility] Last Admin: 08/15/17 09:53 Dose: 40 mg - Labs Labs: 08/15/17 07:26 08/15/17 07:26 Assessment and Plan - Assessment and Plan (Free Text) Assessment: PATIENT SEEN AND EXAMINED AT THE BEDSIDE LUNG SOUND CLEAR HEMOGLOBIN IS 8.2 RECEIVE IV FLUID DISCUSS WITH DR WILLINGHAM AND DR KYLE WHO AGREE AND CLEAR PATIENT FOR DC FOLLOW UP WITH DR WILLINGHAM 1-2 WEEKS AT HIS OFFICE ---CALL FOR APPOINTMENT FOLLOW UP WITH DR KYLE WITHIN 2 WEEKS AT HIS OFFICE ---CALL FOR APPOINTMENT CONTINUE ALL YOUR HOME MEDICATION ORDER ACTIVITY TOLERATED CALL DR WILLINGHAM OR DR KYLE OR GO TO THE EMERGENCY ROOM IF SYMPTOMS RETURN OR WORSENING DICUSS WITH PATIENT WHO AGREE AND VERBALIZED UNDERSTANDING
--- NOTE | 2017-08-15 19:02 | CP.PCM.DIS ---
Provider - Provider Date of Admission: 08/10/17 14:13 Attending physician: Shara Willingham MD Time Spent in preparation of Discharge (in minutes): 35 Diagnosis - Discharge Diagnosis (1) Sickle cell anemia with pain Status: Acute (2) Abdominal pain Status: Acute (3) Abdominal pain Status: Acute (4) Abnormal LFTs Status: Acute (5) Admission for fitting of port-a-cath Status: Acute (6) Anemia Status: Acute (7) Anemia Status: Acute (8) Cannabis use disorder, mild, abuse Status: Acute (9) Chronic abdominal pain Status: Acute (10) Chronic pain Status: Acute (11) Chronic pain disorder Status: Acute (12) Contusion of back Status: Acute (13) Contusion of hip, right Status: Acute (14) Dehydration Status: Acute (15) Drug-seeking behavior Status: Acute (16) Dysfunctional uterine bleeding Status: Acute (17) Elevated LFTs Status: Acute (18) Generalized pain Status: Acute (19) Headache Status: Acute (20) Hordeolum externum (stye) Status: Acute (21) Iron overload due to repeated red blood cell transfusions Status: Acute (22) Leukocytosis Status: Acute (23) Liver lesion Status: Acute (24) Opioid abuse Status: Acute (25) Pain Status: Acute (26) Pain Status: Acute (27) Pain disorder Status: Acute (28) Pneumonia Status: Acute (29) Prophylactic measure Status: Acute (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 (31) Sickle cell anemia Status: Acute (32) Sickle cell crisis Status: Acute (33) Sickle cell crisis Status: Acute (34) Sickle cell disease Status: Acute (35) Sickle cell pain crisis Status: Acute (36) Sickle cell pain crisis Status: Acute (37) Sickle cell trait Status: Acute (38) Sickle-cell disease with pain Status: Acute (39) 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 Hospital Course - Lab Results Lab Results: Most Recent Lab Values WBC 10.6 K/uL (4.8-10.8) 08/15/17 07:26 RBC 2.69 Mil/uL (3.80-5.20) L 08/15/17 07:26 Hgb 8.2 g/dL (11.0-16.0) L 08/15/17 07:26 Hct 24.0 % (34.0-47.0) L 08/15/17 07:26 MCV 89.2 fL (81.0-99.0) 08/15/17 07:26 MCH 30.4 pg (27.0-31.0) 08/15/17 07:26 MCHC 34.1 g/dL (33.0-37.0) 08/15/17 07:26 RDW 16.6 % (11.5-14.5) H 08/15/17 07:26 Plt Count 172 K/uL (130-400) 08/15/17 07:26 MPV 7.9 fL (7.2-11.7) 08/15/17 07:26 Neut % (Auto) 42.7 % (50.0-75.0) L 08/15/17 07:26 Lymph % (Auto) 43.9 % (20.0-40.0) H 08/15/17 07:26 [place] % (Auto) 8.3 % (0.0-10.0) 08/15/17 07:26 Eos % (Auto) 4.2 % (0.0-4.0) H 08/15/17 07:26 Baso % (Auto) 0.9 % (0.0-2.0) 08/15/17 07:26 Neut # (Auto) 4.5 K/uL (1.8-7.0) 08/15/17 07:26 Lymph # (Auto) 4.7 K/uL (1.0-4.3) H 08/15/17 07:26 [place] # (Auto) 0.9 K/uL (0.0-0.8) H 08/15/17 07:26 Eos # (Auto) 0.5 K/uL (0.0-0.7) 08/15/17 07:26 Baso # (Auto) 0.1 K/uL (0.0-0.2) 08/15/17 07:26 Retic Count 8.6 % (0.5-1.5) H D 08/12/17 11:33 Sodium 138 mmol/L (132-148) 08/15/17 07:26 Potassium 4.2 mmol/L (3.6-5.2) 08/15/17 07:26 Chloride 104 mmol/L (98-107) 08/15/17 07:26 Carbon Dioxide 24 mmol/L (22-30) 08/15/17 07:26 Anion Gap 14 (10-20) 08/15/17 07:26 BUN 10 mg/dL (7-17) 08/15/17 07:26 Creatinine 0.4 mg/dL (0.7-1.2) L 08/15/17 07:26 Est GFR ( Amer) > 60 08/15/17 07:26 Est GFR (Non-Af Amer) > 60 08/15/17 07:26 Random Glucose 80 mg/dL (65-105) 08/15/17 07:26 Calcium 8.2 mg/dl (8.6-10.4) L 08/15/17 07:26 Phosphorus 3.7 mg/dL (2.5-4.5) 08/15/17 07:26 Magnesium 1.7 mg/dL (1.6-2.3) 08/15/17 07:26 Total Bilirubin 1.4 mg/dL (0.2-1.3) H 08/15/17 07:26 AST 87 U/L (14-36) H 08/15/17 07:26 ALT 155 U/L (9-52) H 08/15/17 07:26 Alkaline Phosphatase 121 U/L (38-126) 08/15/17 07:26 Total Protein 6.5 g/dL (6.3-8.3) 08/15/17 07:26 Albumin 3.5 g/dL (3.5-5.0) 08/15/17 07:26 Globulin 3.0 gm/dL (2.2-3.9) 08/15/17 07:26 Albumin/Globulin Ratio 1.2 (1.0-2.1) 08/15/17 07:26 Lipase 49 U/L (23-300) 08/10/17 14:07 Urine Color Yellow (YELLOW) 08/10/17 13:54 Urine Clarity Clear (Clear) 08/10/17 13:54 Urine pH 6.0 (5.0-8.0) 08/10/17 13:54 Ur Specific [place] 1.012 (1.003-1.030) 08/10/17 13:54 Urine Protein 1+ mg/dL (NEGATIVE) H 08/10/17 13:54 Urine Glucose (UA) Normal mg/dL (Normal) 08/10/17 13:54 Urine Ketones Negative mg/dL (NEGATIVE) 08/10/17 13:54 Urine Blood 1+ (NEGATIVE) H 08/10/17 13:54 Urine Nitrate Negative (NEGATIVE) 08/10/17 13:54 Urine Bilirubin Negative (NEGATIVE) 08/10/17 13:54 Urine Urobilinogen Normal mg/dL (0.2-1.0) 08/10/17 13:54 Ur Leukocyte Esterase Neg Joanne/uL (Negative) 08/10/17 13:54 Urine WBC (Auto) 1 /hpf (0-5) 08/10/17 13:54 Urine RBC (Auto) 1 /hpf (0-3) 08/10/17 13:54 Urine HCG, Qual Negative (NEGATIVE) 08/11/17 12:52 Hepatitis A IgM Ab Negative (NEGATIVE) 08/15/17 07:26 Hep Bs Antigen Negative (NEGATIVE) 08/15/17 07:26 Hep B Core IgM Ab Negative (NEGATIVE) 08/15/17 07:26 Hepatitis C Antibody Negative (NEGATIVE) 08/15/17 07:26 Blood Type A POSITIVE 08/12/17 14:56 Antibody Screen Negative 08/12/17 14:56 - Hospital Course Hospital Course: For discharge Hemoglobin is 8.2/24 WBC is normal Patient is much improved For discharge today patient improved got better Hemoglobin stable transfusion as needed Discussed with the family also Discharge Exam - Head Exam Head Exam: ATRAUMATIC - Eye Exam Eye Exam: Conjunctival injection Pupil Exam: PERRL - ENT Exam ENT Exam: Mucous Membranes Moist - Neck Exam Neck exam: Full Rom - Respiratory Exam Respiratory Exam: Decreased Breath Sounds - Cardiovascular Exam Cardiovascular Exam: REGULAR RHYTHM, +S1 - GI/Abdominal Exam GI & Abdominal Exam: Normal Bowel Sounds, Soft - Rectal Exam Rectal Exam: Deferred Discharge Plan - Follow Up Plan Condition: FAIR Disposition: HOME/ ROUTINE Instructions: Sickle Cell Disease (DC), Acute Abdominal Pain (DC), Acute Abdominal Pain (GEN) Additional Instructions: FOLLOW UP WITH DR WILLINGHAM 1-2 WEEKS AT HIS OFFICE ---CALL FOR APPOINTMENT FOLLOW UP WITH DR KYLE WITHIN 2 WEEKS AT HIS OFFICE ---CALL FOR APPOINTMENT CONTINUE ALL YOUR HOME MEDICATION ORDER ACTIVITY TOLERATED CALL DR WILLINGHAM OR DR KYLE OR GO TO THE EMERGENCY ROOM IF SYMPTOMS RETURN OR WORSENING Referrals: Oneal Kyle MD [Staff Provider] - Enzo Willingham MD [Staff Provider] -
--- NOTE | 2017-08-15 20:23 | CP.PCM.PN ---
Subjective - Date & Time of Evaluation Date of Evaluation: 08/15/17 Time of Evaluation: 14:00 - Subjective Subjective: Feeling better Objective - Vital Signs/Intake and Output Vital Signs (last 24 hours): Temp Pulse Resp BP Pulse Ox 98.7 F 86 20 101/59 L 98 08/15/17 07:24 08/15/17 07:24 08/15/17 07:24 08/15/17 07:24 08/15/17 07:24 - Labs Labs: 08/15/17 07:26 08/15/17 07:26 - Head Exam Head Exam: ATRAUMATIC - Eye Exam Eye Exam: Normal appearance - ENT Exam ENT Exam: Mucous Membranes Dry - Respiratory Exam Respiratory Exam: NORMAL BREATHING PATTERN - Cardiovascular Exam Cardiovascular Exam: +S1, +S2 - GI/Abdominal Exam GI & Abdominal Exam: Normal Bowel Sounds Assessment and Plan (1) Sickle cell pain crisis Assessment & Plan: IV fluids, pain meds, 02 via NC, folic acid s/p transfusion support Status: Acute (2) Iron overload due to repeated red blood cell transfusions Assessment & Plan: outpatient chelation; not compliant Status: Acute (3) Sickle cell anemia Assessment & Plan: folic acid and hydrea Status: Chronic
== END 2017-08-15 15:08 | disposition home or self-care (01) | DRG 395 ==
LOC: C.ER 11:40 → C.9E 14:13 → C.3T 20:45
PROVIDERS: ADMIT Internal Medicine Nephrology; ATTEND Internal Medicine Nephrology
PROC: 30233N1 Transfusion of Nonautologous Red Blood Cells into Peripheral Vein, Percutaneous Approach (ICD-10-PCS; principal; 2017-08-10)
DX: D57.00 Hb-SS disease with crisis, unspecified (principal); E83.111 Hemochromatosis due to repeated red blood cell transfusions; D72.829 Elevated white blood cell count, unspecified

== ENCOUNTER 2017-08-19 09:40 | Emergency (ER) | payer MEDICAID ==
[2017-08-19 09:40] VITALS: BMI 19.5
--- NOTE | 2017-08-19 11:13 | C.PDOC ---
History Of Present Illness 32-year-old female, PMHx includes Sickle cell disease, presents to the emergency department for evaluation of exacerbation of chronic pain. Patient denies fever, chills, nausea, vomiting. Has a Hx of multiple visits to ED for same complaint. Time Seen by Provider: 08/19/17 10:18 Chief Complaint (Nursing): Pain, Chronic History Per: Patient History/Exam Limitations: no limitations Past Medical History Reviewed: Historical Data, Nursing Documentation, Vital Signs Vital Signs: Last Vital Signs Temp 98.2 F 08/19/17 11:49 Pulse 86 08/19/17 11:49 Resp 20 08/19/17 11:49 BP 111/72 08/19/17 11:49 Pulse Ox 98 08/19/17 11:49 - Medical History PMH: Anemia, Bronchitis, Gall Bladder Disease (GB stone removed), Pneumonia, Sickle Cell Disease Surgical History: Cholecystectomy - [facility] Procedures INFLUENZA VACCINATION (03/16/12) INJECT/INFUSE ELECTROLYT (09/07/13) INJECT/INFUSE NEC (01/25/14) INSERT VAD RESERVOIR IN CHEST SUBCU/FASCIA, OPEN (05/31/17) INSERTION OF INFUSION DEV INTO SUP VENA CAVA, PERC APPROACH (01/25/17) NEBULIZER THERAPY (12/02/13) PACKED CELL TRANSFUSION (02/12/15) REMOVAL OF VAD FROM TRUNK SUBCU/FASCIA, OPEN APPROACH (04/15/16) TRANSFUSE NONAUT RED BLOOD CELLS IN PERIPH VEIN, PERC (08/10/17) VACCINATION NEC (08/22/13) Family History: States: No Known Family Hx - Social History Hx Tobacco Use: No Hx Alcohol Use: No Hx Substance Use: No - Immunization History Hx Tetanus Toxoid Vaccination: Yes Hx Influenza Vaccination: Yes (2016) Hx Pneumococcal Vaccination: Yes (2014) Review Of Systems Except As Marked, All Systems Reviewed And Found Negative. Constitutional: Positive for: Malaise. Negative for: Fever, Chills Respiratory: Negative for: Cough, Shortness of Breath Gastrointestinal: Negative for: Vomiting, Abdominal Pain Skin: Negative for: Rash Neurological: Negative for: Headache, Dizziness Physical Exam - Physical Exam Appears: Non-toxic, No Acute Distress Skin: Normal Color, Warm, Dry, No Rash Head: Normacephalic Eye(s): bilateral: PERRL Neck: Normal ROM Chest: Symmetrical Cardiovascular: Rhythm Regular, No Murmur Respiratory: Normal Breath Sounds, No Accessory Muscle Use Extremity: Normal ROM, No Deformity, No Swelling Neurological/Psych: Oriented x3, Normal Speech ED Course And Treatment O2 Sat by Pulse Oximetry: 99 (RA) Pulse Ox Interpretation: Normal Progress Note: sickle cell protocol followed and ordered oral meds. Prior records reviewed and patient was recently seen and admitted to hospital and discharged 08/15/17; labs stable. Patient appears well non-toxic and feeling better after oral medications. After her second dose of medication she is asking for discharge home. Patient instructed to follow up with PCP Disposition Counseled Patient/Family Regarding: Diagnosis, Need For Followup - Disposition Disposition: HOME/ ROUTINE Disposition Time: 11:50 Condition: STABLE Additional Instructions: Follow up with your primary medical doctor or clinic in 2-5 days for further evaluation Instructions: Chronic Pain Forms: [employer] ([place]) - POA Present On Arrival: None - Clinical Impression Clinical Impression: Chronic pain, Sickle-cell disease with pain - Scribe Statement The provider has reviewed the documentation as recorded by the Scribe (Anika Shearer) All medical record entries made by the Scribe were at my direction and personally dictated by me. I have reviewed the chart and agree that the record accurately reflects my personal performance of the history, physical exam, medical decision making, and the department course for this patient. I have also personally directed, reviewed, and agree with the discharge instructions and disposition.
[2017-08-19 11:51] VITALS: BP 111/72; PULSE 86; RESP 20; TEMP 98.2
[2017-08-19 15:44] VITALS: O2SAT 99
== END 2017-08-19 11:49 | disposition home or self-care (01) ==
LOC: C.ER 09:40
DX: D57.00 Hb-SS disease with crisis, unspecified (principal); G89.29 Other chronic pain

== ENCOUNTER 2017-08-22 14:41 | Inpatient (IN) | payer MEDICAID ==
[2017-08-22 14:45] VITALS: BMI 22.6
[2017-08-22 15:16] LABS: SQUAMOUS EPITHIAL < 1 /hpf (0-5); URINE BILIRUBIN NEGATIVE (NEGATIVE); URINE CLARITY Clear (Clear); URINE COLOR Yellow (YELLOW); URINE GLUCOSE (UA) NORMAL (Normal); URINE LEUKOCYTE ESTERASE NEG Leu/uL (Negative); URINE PROTEIN NEGATIVE (NEGATIVE); URINE UROBILINOGEN NORMAL mg/dL (0.2-1.0)
[2017-08-22 15:17] LABS: HCG,QUALITATIVE URINE NEGATIVE (NEGATIVE)
--- NOTE | 2017-08-22 15:30 | RAD ---
HISTORY: SOB COMPARISON: Chest x-ray performed 06/23/17 TECHNIQUE: Chest, one view. FINDINGS: Distal tip of the right-sided MediPort catheter extends the cavoatrial junction. LUNGS: Hypoinflation. Mild right hilar prominence. Please note that chest x-ray has limited sensitivity for the detection of pulmonary masses. PLEURA: No significant pleural effusion identified. No definite pneumothorax . CARDIOVASCULAR: Heart size appears within normal limits. OSSEOUS STRUCTURES: No acute osseous abnormality identified. VISUALIZED UPPER ABDOMEN: Cholecystectomy clips. Left upper quadrant surgical clips. OTHER FINDINGS: None. IMPRESSION: Right-sided MediPort. Hypoinflation. Mild right hilar prominence. Cholecystectomy clips. Left upper quadrant surgical clips.
[2017-08-22 15:31] LABS: URINE BLOOD NEGATIVE (NEGATIVE)
[2017-08-22 15:34] LABS: BARBITURATES, UR NEGATIVE (NEGATIVE); BENZODIAZEPINES, UR NEGATIVE (NEGATIVE); OPIATES, UR NEGATIVE (NEGATIVE); PHENCYCLIDINE, UR NEGATIVE (NEGATIVE)
[2017-08-22 15:37] LABS: BASO # 0.1 K/uL (0.0-0.2); BASO % 0.5 % (0.0-2.0); EOS # 0.2 K/uL (0.0-0.7); EOS % 1.6 % (0.0-4.0); HEMOGLOBIN 7.3 g/dL (11.0-16.0); LYMPH # 5.9 K/uL (1.0-4.3); LYMPH % 44.4 % (20.0-40.0); MEAN CORPUSCULAR HEMOGLOBIN 31.4 pg (27.0-31.0); MEAN CORPUSCULAR HGB CONC 34.1 g/dL (33.0-37.0); MEAN PLATELET VOLUME 7.6 fL (7.2-11.7); MONO # 1.2 K/uL (0.0-0.8); MONO % 8.8 % (0.0-10.0); NEUT # 5.9 K/uL (1.8-7.0); NEUT % 44.7 % (50.0-75.0); NRBC % 0.2 % (0.0-2.0); RBC 2.32 Mil/uL (3.80-5.20); RED CELL DISTRIBUTION WIDTH 17.2 % (11.5-14.5); WHITE BLOOD COUNT 13.2 K/uL (4.8-10.8)
[2017-08-22 15:44] LABS: INR 1.2; PROTHROMBIN TIME 13.3 SECONDS (9.7-12.2)
[2017-08-22 15:59] LABS: ALB/GLOB RATIO 1.4 (1.0-2.1); ALBUMIN 3.6 g/dL (3.5-5.0); ALT/SGPT 86 U/L (9-52); AST/SGOT 39 U/L (14-36); BLOOD UREA NITROGEN 14 mg/dL (7-17); CALCIUM 8.7 mg/dl (8.6-10.4); GFR AFRICAN-AMERICAN > 60; GFR NON-AFRICAN AMERICAN > 60
--- NOTE | 2017-08-22 17:23 | C.PDOC ---
History Of Present Illness Patient is a 32 y/o female who presents to the ED with a complaint of acute on chronic pain issues of the abdomen, chest, and back. Patient has had many prior evaluations for the same. Reports to have been recently admitted from 08/10-08/15 and received blood transfusions; patient was seen in Dr. Louis's office on 08/17 to renew outpatient sickle cell anemia medications; presented to ED 08/19 for chronic pain issues and received pain medications without a workup. Patient has no other physical complaints at this time. Time Seen by Provider: 08/22/17 14:47 Chief Complaint (Nursing): Abdominal Pain History Per: Patient History/Exam Limitations: no limitations Onset/Duration Of Symptoms: Days Current Symptoms Are (Timing): Still Present Location Of Pain/Discomfort: Diffuse Associated Symptoms: Back Pain, Chest Pain (left chest) Recent travel outside of the [place]: No Past Medical History Reviewed: Historical Data, Nursing Documentation, Vital Signs Vital Signs: Last Vital Signs Temp 98.6 F 08/22/17 14:45 Pulse 82 08/22/17 14:45 Resp 17 08/22/17 14:45 BP 109/75 08/22/17 14:45 Pulse Ox 99 08/22/17 17:33 - Medical History PMH: Anemia, Bronchitis, Gall Bladder Disease (GB stone removed), Pneumonia, Sickle Cell Disease Surgical History: Cholecystectomy - [facility] Procedures INFLUENZA VACCINATION (03/16/12) INJECT/INFUSE ELECTROLYT (09/07/13) INJECT/INFUSE NEC (01/25/14) INSERT VAD RESERVOIR IN CHEST SUBCU/FASCIA, OPEN (05/31/17) INSERTION OF INFUSION DEV INTO SUP VENA CAVA, PERC APPROACH (01/25/17) NEBULIZER THERAPY (12/02/13) PACKED CELL TRANSFUSION (02/12/15) REMOVAL OF VAD FROM TRUNK SUBCU/FASCIA, OPEN APPROACH (04/15/16) TRANSFUSE NONAUT RED BLOOD CELLS IN PERIPH VEIN, PERC (08/10/17) VACCINATION NEC (08/22/13) Family History: States: No Known Family Hx - Social History Hx Tobacco Use: No Hx Alcohol Use: No Hx Substance Use: No - Immunization History Hx Tetanus Toxoid Vaccination: Yes Hx Influenza Vaccination: Yes (2016) Hx Pneumococcal Vaccination: Yes (2014) Review Of Systems Constitutional: Negative for: Fever, Chills Cardiovascular: Positive for: Chest Pain (left sided) Gastrointestinal: Positive for: Abdominal Pain Musculoskeletal: Positive for: Back Pain Physical Exam - Physical Exam Appears: No Acute Distress Skin: Normal Color, Warm, Dry Head: Atraumatic, Normacephalic Eye(s): bilateral: Normal Inspection, PERRL, EOMI Nose: Normal Oral Mucosa: Moist Chest: Symmetrical Cardiovascular: Rhythm Regular, No Murmur Respiratory: Normal Breath Sounds, No Rales, No Rhonchi, No Wheezing Gastrointestinal/Abdominal: Bowel Sounds (positive), Soft, No Tenderness, No Guarding, No Rebound Back: Normal Inspection, No CVA Tenderness Neurological/Psych: Oriented x3, Normal Speech, Normal Cognition ED Course And Treatment - Laboratory Results Result Diagrams: 08/22/17 15:33 08/22/17 15:33 Lab Interpretation: Abnormal (+ retic count (baseline), mild decreased HGB from last week, tox + cannabanoids) Urine POC: Negative ECG: Interpreted By Me ECG Rhythm: Sinus Rhythm ECG Interpretation: Normal Rate From EC O2 Sat by Pulse Oximetry: 99 Pulse Ox Interpretation: Normal - Radiology CXR: Interpreted by Me CXR Interpretation: Yes: No Acute Disease Reevaluation Time: 18:09 Reassessment Condition: Unchanged (remains apparently pain free) - Physician Consult Information Outcome Of Conversation: 1809: d/w PMD, Dr. Tejal Louis, ok to admit. Medical Decision Making Medical Decision Making: EKG and CXR ordered. chronic pain disorder chronic anemia constipation due to narcotics use, therefore narcotics held in ED which will only make constipation worse. Disposition Doctor Will See Patient In The: Hospital Counseled Patient/Family Regarding: Studies Performed, Diagnosis - Disposition Disposition: HOSPITALIZED Disposition Time: 18:10 Condition: GOOD Forms: [employer] ([place]) - Clinical Impression Clinical Impression: Chronic pain disorder, Sickle cell disease - Scribe Statement The provider has reviewed the documentation as recorded by the Scribe Whit Malloy All medical record entries made by the Scribe were at my direction and personally dictated by me. I have reviewed the chart and agree that the record accurately reflects my personal performance of the history, physical exam, medical decision making, and the department course for this patient. I have also personally directed, reviewed, and agree with the discharge instructions and disposition.
[2017-08-22] MEDS ORDERED: Sodium Chloride 0.9% 1,000 ML IV ONE (18:11)
[2017-08-22] MEDS: DiphenhydrAMINE 50 mg/ml Inj IVP PRN ×2 (19:32→22:21)
[2017-08-22 19:35] VITALS: RESP 20
[2017-08-22] MEDS: Dextrose 5%/0.45% NS 1,000 ML IV SCH (20:39)
--- NOTE | 2017-08-22 20:51 | CP.PCM.HP ---
Past Patient History - Infectious Disease Hx of Infectious Diseases: None - Tetanus Immunizations Tetanus Immunization: Up to Date - Past Medical History & Family History Past Medical History?: Yes - Past Social History Smoking Status: Never Smoked - PULMONARY Hx Bronchitis: Yes Hx Pneumonia: Yes - HEENT Hx HEENT Problems: No - HEMATOLOGICAL/ONCOLOGICAL Hx Anemia: Yes Hx Sickle Cell Disease: Yes - INTEGUMENTARY Hx Dermatological Problems: No - GASTROINTESTINAL Hx Gall Bladder Disease: Yes (GB stone removed) - PSYCHIATRIC Hx Substance Use: No - SURGICAL HISTORY Hx Cholecystectomy: Yes - ANESTHESIA Hx Anesthesia: Yes Hx Anesthesia Reactions: No Hx Malignant Hyperthermia: No Meds Allergies/Adverse Reactions: Allergies Allergy/AdvReac Type Severity Reaction Status Date / Time FISH Allergy Severe RASH Verified 08/22/17 14:44 oxycodone Allergy Severe RASH Verified 08/22/17 14:44 tramadol Allergy Severe RASH Verified 08/22/17 14:44 ketorolac Allergy Intermediate RASH Verified 08/22/17 14:44 Results - Vital Signs Recent Vital Signs: Last Vital Signs Temp 98.6 F 08/22/17 14:45 Pulse 73 08/22/17 19:25 Resp 20 08/22/17 19:25 BP 142/88 08/22/17 19:25 Pulse Ox 100 08/22/17 19:25 - Labs Result Diagrams: 08/22/17 15:33 08/22/17 15:33 Labs: Laboratory Results - last 24 hr 08/22/17 08/22/17 08/22/17 15:05 15:05 15:33 WBC RBC Hgb Hct MCV MCH MCHC RDW Plt Count MPV Neut % (Auto) Lymph % (Auto) [place] % (Auto) Eos % (Auto) Baso % (Auto) Neut # (Auto) Lymph # (Auto) [place] # (Auto) Eos # (Auto) Baso # (Auto) Differential Comment Retic Count PT INR APTT Sodium 143 Potassium 4.0 Chloride 108 H Carbon Dioxide 24 Anion Gap 15 BUN 14 Creatinine 0.5 L Est GFR ( Amer) > 60 Est GFR (Non-Af Amer) > 60 Random Glucose 105 Calcium 8.7 Total Bilirubin 1.0 AST 39 H D ALT 86 H D Alkaline Phosphatase 80 Troponin I < 0.0120 Total Protein 6.2 L Albumin 3.6 Globulin 2.6 Albumin/Globulin Ratio 1.4 Urine Color Yellow Urine Clarity Clear Urine pH 6.0 Ur Specific [place] 1.011 Urine Protein Negative Urine Glucose (UA) Normal Urine Ketones Negative Urine Blood Negative Urine Nitrate Negative Urine Bilirubin Negative Urine Urobilinogen Normal Ur Leukocyte Esterase Neg Urine WBC (Auto) 1 Urine RBC (Auto) < 1 Ur Squamous Epith Cells < 1 Urine HCG, Qual Negative Urine Opiates Screen Negative Urine Methadone Screen Negative Ur Barbiturates Screen Negative Ur Phencyclidine Scrn Negative Ur Amphetamines Screen Negative U Benzodiazepines Scrn Negative U Oth Cocaine Metabols Negative U Cannabinoids Screen Positive H 08/22/17 08/22/17 15:33 15:33 WBC 13.2 H RBC 2.32 L Hgb 7.3 L Hct 21.3 L MCV 92.0 D MCH 31.4 H MCHC 34.1 RDW 17.2 H Plt Count 341 D MPV 7.6 Neut % (Auto) 44.7 L Lymph % (Auto) 44.4 H [place] % (Auto) 8.8 Eos % (Auto) 1.6 Baso % (Auto) 0.5 Neut # (Auto) 5.9 Lymph # (Auto) 5.9 H [place] # (Auto) 1.2 H Eos # (Auto) 0.2 Baso # (Auto) 0.1 Differential Comment Retic Count 10.0 H D PT 13.3 H INR 1.2 APTT 32 Sodium Potassium Chloride Carbon Dioxide Anion Gap BUN Creatinine Est GFR ( Amer) Est GFR (Non-Af Amer) Random Glucose Calcium Total Bilirubin AST ALT Alkaline Phosphatase Troponin I Total Protein Albumin Globulin Albumin/Globulin Ratio Urine Color Urine Clarity Urine pH Ur Specific [place] Urine Protein Urine Glucose (UA) Urine Ketones Urine Blood Urine Nitrate Urine Bilirubin Urine Urobilinogen Ur Leukocyte Esterase Urine WBC (Auto) Urine RBC (Auto) Ur Squamous Epith Cells Urine HCG, Qual Urine Opiates Screen Urine Methadone Screen Ur Barbiturates Screen Ur Phencyclidine Scrn Ur Amphetamines Screen U Benzodiazepines Scrn U Oth Cocaine Metabols U Cannabinoids Screen Assessment & Plan (1) Chronic pain disorder Status: Acute (2) Sickle cell disease Status: Acute (3) Abdominal pain Status: Acute (4) Abdominal pain Status: Acute (5) Abnormal LFTs Status: Acute (6) Admission for fitting of port-a-cath Status: Acute (7) Anemia Status: Acute (8) Anemia Status: Acute (9) Cannabis use disorder, mild, abuse Status: Acute (10) Chronic abdominal pain Status: Acute (11) Chronic pain Status: Acute (12) Contusion of back Status: Acute (13) Contusion of hip, right Status: Acute (14) Dehydration Status: Acute (15) Drug-seeking behavior Status: Acute (16) Dysfunctional uterine bleeding Status: Acute (17) Elevated LFTs Status: Acute (18) Generalized pain Status: Acute (19) Headache Status: Acute (20) Hordeolum externum (stye) Status: Acute (21) Iron overload due to repeated red blood cell transfusions Status: Acute (22) Leukocytosis Status: Acute (23) Liver lesion Status: Acute (24) Opioid abuse Status: Acute (25) Pain Status: Acute (26) Pain Status: Acute (27) Pain disorder Status: Acute (28) Pneumonia Status: Acute (29) Prophylactic measure Status: Acute (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 (31) Sickle cell anemia Status: Acute (32) Sickle cell anemia with pain Status: Acute (33) Sickle cell crisis Status: Acute (34) Sickle cell crisis Status: Acute (35) Sickle cell pain crisis Status: Acute (36) Sickle cell pain crisis Status: Acute (37) Sickle cell trait Status: Acute (38) Sickle-cell disease with pain Status: Acute (39) 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
[2017-08-23] MEDS: DiphenhydrAMINE 50 mg/ml Inj IVP PRN ×8 (01:20→23:29)
[2017-08-23] MEDS: Pantoprazole 40 mg EC Tab PO SCH (09:01)
[2017-08-23] MEDS: Enoxaparin 40 mg Syringe SC SCH (09:01)
[2017-08-23] MEDS: Dextrose 5%/0.45% NS 1,000 ML IV SCH ×2 (15:30→17:28)
--- NOTE | 2017-08-23 16:05 | CP.PCM.PN ---
Subjective - Date & Time of Evaluation Date of Evaluation: 08/23/17 Time of Evaluation: 08:30 - Subjective Subjective: clinically same Objective - Vital Signs/Intake and Output Vital Signs (last 24 hours): Temp Pulse Resp BP Pulse Ox 97.3 F L 77 20 122/80 98 08/23/17 00:32 08/23/17 00:32 08/23/17 00:32 08/23/17 00:32 08/23/17 00:32 Intake and Output: 08/23/17 08/23/17 06:59 18:59 Intake Total 930 Balance 930 - Medications Medications: Current Medications Diphenhydramine HCl (Benadryl) 25 mg IVP Q3H PRN PRN Reason: Allergy symptoms Last Admin: 08/23/17 14:15 Dose: 25 mg Enoxaparin Sodium (Lovenox) 40 mg SC DAILY [facility] Last Admin: 08/23/17 09:01 Dose: 40 mg Hydromorphone HCl (Dilaudid) 2 mg IVP Q3 PRN PRN Reason: Pain, severe (8-10) Last Admin: 08/23/17 14:15 Dose: 2 mg Dextrose/Sodium Chloride (Dextrose 5%/0.45% Ns 1000 Ml) 1,000 mls @ 50 mls/hr IV .Q20H [facility] Last Admin: 08/22/17 20:39 Dose: 50 mls/hr Pantoprazole Sodium (Protonix Ec Tab) 40 mg PO DAILY [facility] Last Admin: 08/23/17 09:01 Dose: 40 mg - Labs Labs: 08/22/17 15:33 08/22/17 15:33 PT 13.3 SECONDS (9.7-12.2) H 08/22/17 15:33 INR 1.2 08/22/17 15:33 APTT 32 SECONDS (21-34) 08/22/17 15:33 - Constitutional Appears: Well - Head Exam Head Exam: ATRAUMATIC, NORMAL INSPECTION, NORMOCEPHALIC - Eye Exam Eye Exam: EOMI, Normal appearance, PERRL Pupil Exam: NORMAL ACCOMODATION, PERRL - ENT Exam ENT Exam: Mucous Membranes Moist, Normal Exam - Neck Exam Neck Exam: Full ROM, Normal Inspection. absent: Lymphadenopathy - Respiratory Exam Respiratory Exam: Decreased Breath Sounds - Cardiovascular Exam Cardiovascular Exam: REGULAR RHYTHM, +S1, +S2 - GI/Abdominal Exam GI & Abdominal Exam: Soft, Diminished Bowel Sounds - Rectal Exam Rectal Exam: Deferred Assessment and Plan (1) Chronic pain disorder Status: Acute (2) Sickle cell disease Status: Acute (3) Abdominal pain Status: Acute (4) Abdominal pain Status: Acute (5) Abnormal LFTs Status: Acute (6) Admission for fitting of port-a-cath Status: Acute (7) Anemia Status: Acute (8) Anemia Status: Acute (9) Cannabis use disorder, mild, abuse Status: Acute (10) Chronic abdominal pain Status: Acute (11) Chronic pain Status: Acute (12) Contusion of back Status: Acute (13) Contusion of hip, right Status: Acute (14) Dehydration Status: Acute (15) Drug-seeking behavior Status: Acute (16) Dysfunctional uterine bleeding Status: Acute (17) Elevated LFTs Status: Acute (18) Generalized pain Status: Acute (19) Headache Status: Acute (20) Hordeolum externum (stye) Status: Acute (21) Iron overload due to repeated red blood cell transfusions Status: Acute (22) Leukocytosis Status: Acute (23) Liver lesion Status: Acute (24) Opioid abuse Status: Acute (25) Pain Status: Acute (26) Pain Status: Acute (27) Pain disorder Status: Acute (28) Pneumonia Status: Acute (29) Prophylactic measure Status: Acute (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 (31) Sickle cell anemia Status: Acute (32) Sickle cell anemia with pain Status: Acute (33) Sickle cell crisis Status: Acute (34) Sickle cell crisis Status: Acute (35) Sickle cell pain crisis Status: Acute (36) Sickle cell pain crisis Status: Acute (37) Sickle cell trait Status: Acute (38) Sickle-cell disease with pain Status: Acute (39) 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
[2017-08-24] MEDS: DiphenhydrAMINE 50 mg/ml Inj IVP PRN ×6 (02:19→17:28)
[2017-08-24] MEDS: Enoxaparin 40 mg Syringe SC SCH (09:56)
[2017-08-24] MEDS: Pantoprazole 40 mg EC Tab PO SCH (09:56)
--- NOTE | 2017-08-24 10:57 | CP.PCM.PN ---
Subjective - Date & Time of Evaluation Date of Evaluation: 08/24/17 Time of Evaluation: 10:48 - Subjective Subjective: PGY-[address] Louis's service: Pt seen and examined at bedside. Nursing reports no acute events overnight. Patient reports pain in her abdomen, chest, and back, has decreased since admission. Describes pain as dull, constant pain, that rates as 2/10 with medication, and 8/10 without. She denies chest pain, lightheadedness, SOB, abdominal pain, N/V. Objective - Vital Signs/Intake and Output Vital Signs (last 24 hours): Temp Pulse Resp BP Pulse Ox 98.5 F 87 20 116/62 98 08/24/17 08:27 08/24/17 08:27 08/24/17 08:27 08/24/17 08:27 08/24/17 08:27 Intake and Output: 08/24/17 08/24/17 06:59 18:59 Intake Total 1999 840 Balance 1999 840 - Medications Medications: Current Medications Diphenhydramine HCl (Benadryl) 25 mg IVP Q3H PRN PRN Reason: Allergy symptoms Last Admin: 08/24/17 08:20 Dose: 25 mg Enoxaparin Sodium (Lovenox) 40 mg SC DAILY [facility] Last Admin: 08/24/17 09:56 Dose: 40 mg Hydromorphone HCl (Dilaudid) 2 mg IVP Q3 PRN PRN Reason: Pain, severe (8-10) Last Admin: 08/24/17 08:20 Dose: 2 mg Dextrose/Sodium Chloride (Dextrose 5%/0.45% Ns 1000 Ml) 1,000 mls @ 50 mls/hr IV .Q20H [facility] Last Admin: 08/23/17 17:28 Dose: 50 mls/hr Pantoprazole Sodium (Protonix Ec Tab) 40 mg PO DAILY [facility] Last Admin: 08/24/17 09:56 Dose: 40 mg - Labs Labs: 08/22/17 15:33 08/22/17 15:33 PT 13.3 SECONDS (9.7-12.2) H 08/22/17 15:33 INR 1.2 08/22/17 15:33 APTT 32 SECONDS (21-34) 08/22/17 15:33 - Constitutional Appears: Non-toxic, No Acute Distress - Head Exam Head Exam: ATRAUMATIC, NORMAL INSPECTION - Eye Exam Eye Exam: EOMI, Normal appearance. absent: Scleral icterus - ENT Exam ENT Exam: Mucous Membranes Moist - Neck Exam Neck Exam: Full ROM. absent: Lymphadenopathy - Respiratory Exam Respiratory Exam: Clear to Ausculation Bilateral, NORMAL BREATHING PATTERN - Cardiovascular Exam Cardiovascular Exam: REGULAR RHYTHM. absent: +S1, +S2 - GI/Abdominal Exam GI & Abdominal Exam: Soft, Normal Bowel Sounds. absent: Tenderness Additional comments: Surgical scars noted from prior open splenectomy - Extremities Exam Extremities Exam: Normal Inspection - Back Exam Back Exam: absent: CVA tenderness (L), CVA tenderness (R) - Neurological Exam Neurological Exam: Alert, Awake - Psychiatric Exam Psychiatric exam: Normal Affect, Normal Mood - Skin Skin Exam: Normal Color, Warm Assessment and Plan - Assessment and Plan (Free Text) Plan: This is a 32 yo female admitted for sickle cell crisis Sickle cell crisis Admit to tele 08/22: Hgb 7.3 - reticulocyte count (elevated 10.0) - f/u AM labs -transfusions as necessary; patient normally lives around 8-9 hbg -benadryl 25 mg IV q 3 hrs -dialudid 2mg Q3H PRN -lovenox 40 mg SC daily -folic acid 1 mg daily -hydroxyurea 500mg PO daily - On D5//2 NS @ 50ml/hr, will D/C if tolerating diet Sees Dr. Portillo as outpatient - will need chelation therapy as outpatient - will consider consult in future if crisis worsens, o/w can see as outpatient Transaminitis Admission AST/ALT: 39/86 - improved from last admission (91/167) Hepatitis panel negative (08/15/17) Leukocytosis improved over course - likely secondary to sickle cell will monitor, f/u AM labs GI/DVT ppx -prophylactic vaccinations -lovenox daily SC -protonix daily PO Disposition: Possible discharge today or tomorrow, pending on AM labwork. Jose Serrano PGY-[address] Ariel Louis; all management as per Dr. Ariel Louis
[2017-08-24 11:28] LABS: BASO # 0.1 K/uL (0.0-0.2); BASO % 0.8 % (0.0-2.0); EOS # 0.6 K/uL (0.0-0.7); EOS % 3.8 % (0.0-4.0); HEMOGLOBIN 7.2 g/dL (11.0-16.0); LYMPH # 6.6 K/uL (1.0-4.3); LYMPH % 44.7 % (20.0-40.0); MEAN CELL VOLUME 91.2 fL (81.0-99.0); MEAN CORPUSCULAR HEMOGLOBIN 30.9 pg (27.0-31.0); MEAN CORPUSCULAR HGB CONC 33.8 g/dL (33.0-37.0); MEAN PLATELET VOLUME 7.6 fL (7.2-11.7); MONO # 1.1 K/uL (0.0-0.8); MONO % 7.6 % (0.0-10.0); NEUT # 6.3 K/uL (1.8-7.0); NEUT % 43.1 % (50.0-75.0); NRBC % 0.2 % (0.0-2.0); RBC 2.34 Mil/uL (3.80-5.20); RED CELL DISTRIBUTION WIDTH 18.7 % (11.5-14.5); WHITE BLOOD COUNT 14.7 K/uL (4.8-10.8)
[2017-08-24] MEDS: Dextrose 5%/0.45% NS 1,000 ML IV SCH (11:30)
[2017-08-24 11:46] LABS: ALB/GLOB RATIO 1.3 (1.0-2.1); ALBUMIN 3.8 g/dL (3.5-5.0); ALT/SGPT 103 U/L (9-52); AST/SGOT 60 U/L (14-36); BLOOD UREA NITROGEN 13 mg/dL (7-17); CALCIUM 8.3 mg/dl (8.6-10.4); GFR AFRICAN-AMERICAN > 60; GFR NON-AFRICAN AMERICAN > 60
--- NOTE | 2017-08-24 13:57 | CP.PCM.PN ---
Subjective - Date & Time of Evaluation Date of Evaluation: 08/24/17 Time of Evaluation: 09:00 - Subjective Subjective: clinically same Objective - Vital Signs/Intake and Output Vital Signs (last 24 hours): Temp Pulse Resp BP Pulse Ox 98.5 F 87 20 116/62 98 08/24/17 08:27 08/24/17 08:27 08/24/17 08:27 08/24/17 08:27 08/24/17 08:27 Intake and Output: 08/24/17 08/24/17 06:59 18:59 Intake Total 1999 840 Balance 1999 840 - Medications Medications: Current Medications Diphenhydramine HCl (Benadryl) 25 mg IVP Q3H PRN PRN Reason: Allergy symptoms Last Admin: 08/24/17 11:15 Dose: 25 mg Enoxaparin Sodium (Lovenox) 40 mg SC DAILY [facility] Last Admin: 08/24/17 09:56 Dose: 40 mg Folic Acid (Folic Acid) 1 mg PO DAILY [facility] Last Admin: 08/24/17 11:24 Dose: 1 mg Hydromorphone HCl (Dilaudid) 2 mg IVP Q3 PRN PRN Reason: Pain, severe (8-10) Last Admin: 08/24/17 11:15 Dose: 2 mg Hydroxyurea (Hydrea) 500 mg PO DAILY [facility] Last Admin: 08/24/17 11:26 Dose: 500 mg Dextrose/Sodium Chloride (Dextrose 5%/0.45% Ns 1000 Ml) 1,000 mls @ 50 mls/hr IV .Q20H [facility] Last Admin: 08/23/17 17:28 Dose: 50 mls/hr Pantoprazole Sodium (Protonix Ec Tab) 40 mg PO DAILY [facility] Last Admin: 08/24/17 09:56 Dose: 40 mg - Labs Labs: 08/24/17 11:22 08/24/17 11:22 PT 13.3 SECONDS (9.7-12.2) H 08/22/17 15:33 INR 1.2 08/22/17 15:33 APTT 32 SECONDS (21-34) 08/22/17 15:33 - Constitutional Appears: Well - Head Exam Head Exam: ATRAUMATIC, NORMAL INSPECTION, NORMOCEPHALIC - Eye Exam Eye Exam: EOMI, Normal appearance, PERRL Pupil Exam: NORMAL ACCOMODATION, PERRL - ENT Exam ENT Exam: Mucous Membranes Moist, Normal Exam - Neck Exam Neck Exam: Full ROM, Normal Inspection. absent: Lymphadenopathy - Respiratory Exam Respiratory Exam: Decreased Breath Sounds - Cardiovascular Exam Cardiovascular Exam: REGULAR RHYTHM, +S1, +S2 - GI/Abdominal Exam GI & Abdominal Exam: Soft, Diminished Bowel Sounds - Rectal Exam Rectal Exam: Deferred Assessment and Plan (1) Chronic pain disorder Status: Acute (2) Sickle cell disease Status: Acute (3) Abdominal pain Status: Acute (4) Abdominal pain Status: Acute (5) Abnormal LFTs Status: Acute (6) Admission for fitting of port-a-cath Status: Acute (7) Anemia Status: Acute (8) Anemia Status: Acute (9) Cannabis use disorder, mild, abuse Status: Acute (10) Chronic abdominal pain Status: Acute (11) Chronic pain Status: Acute (12) Contusion of back Status: Acute (13) Contusion of hip, right Status: Acute (14) Dehydration Status: Acute (15) Drug-seeking behavior Status: Acute (16) Dysfunctional uterine bleeding Status: Acute (17) Elevated LFTs Status: Acute (18) Generalized pain Status: Acute (19) Headache Status: Acute (20) Hordeolum externum (stye) Status: Acute (21) Iron overload due to repeated red blood cell transfusions Status: Acute (22) Leukocytosis Status: Acute (23) Liver lesion Status: Acute (24) Opioid abuse Status: Acute (25) Pain Status: Acute (26) Pain Status: Acute (27) Pain disorder Status: Acute (28) Pneumonia Status: Acute (29) Prophylactic measure Status: Acute (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 (31) Sickle cell anemia Status: Acute (32) Sickle cell anemia with pain Status: Acute (33) Sickle cell crisis Status: Acute (34) Sickle cell crisis Status: Acute (35) Sickle cell pain crisis Status: Acute (36) Sickle cell pain crisis Status: Acute (37) Sickle cell trait Status: Acute (38) Sickle-cell disease with pain Status: Acute (39) 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
[2017-08-24 17:07] VITALS: BP 137/81; PULSE 82; TEMP 98.4; O2SAT 97
--- NOTE | 2017-08-24 20:23 | CARD ---
APPROVED REPORT EKG Measurement Heart [id number] <Conclusion> Normal sinus rhythm Normal ECG
== END 2017-08-24 18:39 | disposition home or self-care (01) | DRG 395 ==
LOC: C.ER 14:41 → C.9E 18:12 → C.3T 19:31
PROVIDERS: ADMIT Internal Medicine Nephrology; ATTEND Internal Medicine Nephrology
DX: D57.00 Hb-SS disease with crisis, unspecified (principal); E83.111 Hemochromatosis due to repeated red blood cell transfusions; E86.0 Dehydration; F11.10 Opioid abuse, uncomplicated; F12.10 Cannabis abuse, uncomplicated; G89.29 Other chronic pain; H00.019 Hordeolum externum unspecified eye, unspecified eyelid; J06.9 Acute upper respiratory infection, unspecified; K59.03 Drug induced constipation; K76.9 Liver disease, unspecified; N93.8 Other specified abnormal uterine and vaginal bleeding; T40.605A Adverse effect of unspecified narcotics, initial encounter; Z87.01 Personal history of pneumonia (recurrent); Z90.49 Acquired absence of other specified parts of digestive tract; Z90.81 Acquired absence of spleen

== ENCOUNTER 2017-09-12 11:31 | Inpatient (IN) | payer MEDICAID ==
[2017-09-12 11:32] VITALS: BMI 22.6
--- NOTE | 2017-09-12 12:34 | C.PDOC ---
Time Seen by Provider: 09/12/17 11:47 Chief Complaint (Nursing): Pain, Chronic Past Medical History Vital Signs: Last Vital Signs Temp 97.9 F 09/12/17 11:36 Pulse 100 H 09/12/17 11:36 Resp 18 09/12/17 11:36 BP 123/75 09/12/17 11:36 Pulse Ox 100 09/12/17 11:36 - Medical History PMH: Anemia, Bronchitis, Gall Bladder Disease (GB stone removed), Pneumonia, Sickle Cell Disease Surgical History: Cholecystectomy - [facility] Procedures INFLUENZA VACCINATION (03/16/12) INJECT/INFUSE ELECTROLYT (09/07/13) INJECT/INFUSE NEC (01/25/14) INSERT VAD RESERVOIR IN CHEST SUBCU/FASCIA, OPEN (05/31/17) INSERTION OF INFUSION DEV INTO SUP VENA CAVA, PERC APPROACH (01/25/17) NEBULIZER THERAPY (12/02/13) PACKED CELL TRANSFUSION (02/12/15) REMOVAL OF VAD FROM TRUNK SUBCU/FASCIA, OPEN APPROACH (04/15/16) TRANSFUSE NONAUT RED BLOOD CELLS IN PERIPH VEIN, PERC (08/10/17) VACCINATION NEC (08/22/13) - Social History Hx Tobacco Use: No Hx Alcohol Use: No Hx Substance Use: Yes - Immunization History Hx Tetanus Toxoid Vaccination: Yes Hx Influenza Vaccination: Yes (2016) Hx Pneumococcal Vaccination: Yes (2014) ED Course And Treatment O2 Sat by Pulse Oximetry: 100 Disposition - Disposition
--- NOTE | 2017-09-12 12:43 | C.PDOC ---
History Of Present Illness Patient is a 32 y/o female who presents to the ED with complaints of back pain and abdominal pain since Thursday 09/07. Patient reports pain begins in left side of back and radiates to the abdomen. Patient was admitted in [facility] under watch for a hemoglobin of 7.0; notes not being able to receive blood transfusion secondary to heightened iron levels, last transfusion in August. Patient denies any vomiting, diarrhea, fever, cold symptoms, or new medications. No other physical complaints at this time. Time Seen by Provider: 09/12/17 11:47 Chief Complaint (Nursing): Pain, Chronic History Per: Patient History/Exam Limitations: no limitations Onset/Duration Of Symptoms: Days (Thursday 09/07) Current Symptoms Are (Timing): Still Present Reports Recently: Hospitalized ([facility]) Recent travel outside of the [place]: No Past Medical History Reviewed: Historical Data, Nursing Documentation, Vital Signs Vital Signs: Last Vital Signs Temp 97.9 F 09/12/17 11:36 Pulse 100 H 09/12/17 11:36 Resp 18 09/12/17 11:36 BP 123/75 09/12/17 11:36 Pulse Ox 100 09/12/17 12:50 - Medical History PMH: Anemia, Bronchitis, Gall Bladder Disease (GB stone removed), Pneumonia, Sickle Cell Disease Surgical History: Cholecystectomy - [facility] Procedures INFLUENZA VACCINATION (03/16/12) INJECT/INFUSE ELECTROLYT (09/07/13) INJECT/INFUSE NEC (01/25/14) INSERT VAD RESERVOIR IN CHEST SUBCU/FASCIA, OPEN (05/31/17) INSERTION OF INFUSION DEV INTO SUP VENA CAVA, PERC APPROACH (01/25/17) NEBULIZER THERAPY (12/02/13) PACKED CELL TRANSFUSION (02/12/15) REMOVAL OF VAD FROM TRUNK SUBCU/FASCIA, OPEN APPROACH (04/15/16) TRANSFUSE NONAUT RED BLOOD CELLS IN PERIPH VEIN, PERC (08/10/17) VACCINATION NEC (08/22/13) Family History: States: No Known Family Hx - Social History Hx Tobacco Use: No Hx Alcohol Use: No Hx Substance Use: Yes - Immunization History Hx Tetanus Toxoid Vaccination: Yes Hx Influenza Vaccination: Yes (2016) Hx Pneumococcal Vaccination: Yes (2014) Review Of Systems Constitutional: Negative for: Fever ENT: Negative for: Nose Discharge Respiratory: Negative for: Cough, Shortness of Breath Gastrointestinal: Negative for: Nausea, Vomiting Genitourinary: Negative for: Vaginal Bleeding Physical Exam - Physical Exam Appears: Well, Non-toxic, No Acute Distress Skin: Normal Color, Warm, Dry Head: Atraumatic, Normacephalic Oral Mucosa: Moist Chest: Symmetrical Cardiovascular: Rhythm Regular, No Murmur Respiratory: Normal Breath Sounds, No Rales, No Rhonchi, No Wheezing Gastrointestinal/Abdominal: Soft, No Tenderness Back: No CVA Tenderness Neurological/Psych: Oriented x3, Normal Speech, Normal Cognition ED Course And Treatment - Laboratory Results Result Diagrams: 09/12/17 12:56 09/12/17 12:56 O2 Sat by Pulse Oximetry: 100 Progress Note: Blood work and UA ordered. Benadryl, dilautid, and HCG urine administered. Medical Decision Making Medical Decision Making: The Hgb has remained low. Patient has symptomatic anemia and will admit for possible sickle cell crisis. The case was discussed with Dr. Ariel Louis (PMD) who agrees to place the patient on obs. Disposition - Disposition Disposition: HOSPITALIZED Disposition Time: 13:39 Condition: STABLE Forms: [facility] (Indian) - POA Present On Arrival: None - Clinical Impression Clinical Impression: Sickle cell crisis, Symptomatic anemia - Scribe Statement The provider has reviewed the documentation as recorded by the Scribe Whit Malloy All medical record entries made by the Scribe were at my direction and personally dictated by me. I have reviewed the chart and agree that the record accurately reflects my personal performance of the history, physical exam, medical decision making, and the department course for this patient. I have also personally directed, reviewed, and agree with the discharge instructions and disposition.
[2017-09-12 13:02] LABS: BASO # 0.1 K/uL (0.0-0.2); BASO % 0.9 % (0.0-2.0); EOS # 0.2 K/uL (0.0-0.7); EOS % 1.6 % (0.0-4.0); HEMOGLOBIN 7.1 g/dL (11.0-16.0); LYMPH # 3.3 K/uL (1.0-4.3); LYMPH % 27.6 % (20.0-40.0); MEAN CELL VOLUME 100.2 fL (81.0-99.0); MEAN CORPUSCULAR HEMOGLOBIN 34.3 pg (27.0-31.0); MEAN CORPUSCULAR HGB CONC 34.2 g/dL (33.0-37.0); MEAN PLATELET VOLUME 7.4 fL (7.2-11.7); MONO # 1.2 K/uL (0.0-0.8); MONO % 9.8 % (0.0-10.0); NEUT # 7.1 K/uL (1.8-7.0); NEUT % 60.1 % (50.0-75.0); NRBC % 1.3 % (0.0-2.0); RBC 2.08 Mil/uL (3.80-5.20); RED CELL DISTRIBUTION WIDTH 32.4 % (11.5-14.5); WHITE BLOOD COUNT 11.9 K/uL (4.8-10.8)
[2017-09-12 13:04] LABS: HCG,QUALITATIVE URINE NEGATIVE (NEGATIVE); SQUAMOUS EPITHIAL < 1 /hpf (0-5); URINE BACTERIA RARE (<OCC); URINE BILIRUBIN NEGATIVE (NEGATIVE); URINE BLOOD NEGATIVE (NEGATIVE); URINE CLARITY Clear (Clear); URINE COLOR Yellow (YELLOW); URINE GLUCOSE (UA) NORMAL (Normal); URINE LEUKOCYTE ESTERASE NEG Leu/uL (Negative); URINE PROTEIN 2+ mg/dL (NEGATIVE); URINE UROBILINOGEN NORMAL mg/dL (0.2-1.0)
[2017-09-12 13:19] LABS: ALB/GLOB RATIO 1.3 (1.0-2.1); ALBUMIN 3.7 g/dL (3.5-5.0); ALT/SGPT 96 U/L (9-52); AST/SGOT 52 U/L (14-36); BLOOD UREA NITROGEN 9 mg/dL (7-17); CALCIUM 8.6 mg/dl (8.6-10.4); GFR AFRICAN-AMERICAN > 60; GFR NON-AFRICAN AMERICAN > 60
--- NOTE | 2017-09-12 15:12 | CP.PCM.HP ---
Past Patient History - Infectious Disease Hx of Infectious Diseases: None - Tetanus Immunizations Tetanus Immunization: Up to Date - Past Medical History & Family History Past Medical History?: Yes - Past Social History Smoking Status: Never Smoked - PULMONARY Hx Bronchitis: Yes Hx Pneumonia: Yes - HEENT Hx HEENT Problems: No - HEMATOLOGICAL/ONCOLOGICAL Hx Anemia: Yes Hx Sickle Cell Disease: Yes - INTEGUMENTARY Hx Dermatological Problems: No - GASTROINTESTINAL Hx Gall Bladder Disease: Yes (GB stone removed) - PSYCHIATRIC Hx Substance Use: Yes - SURGICAL HISTORY Hx Cholecystectomy: Yes - ANESTHESIA Hx Anesthesia: Yes Hx Anesthesia Reactions: No Hx Malignant Hyperthermia: No Meds Allergies/Adverse Reactions: Allergies Allergy/AdvReac Type Severity Reaction Status Date / Time FISH Allergy Severe RASH Verified 09/12/17 11:36 oxycodone Allergy Severe RASH Verified 09/12/17 11:36 tramadol Allergy Severe RASH Verified 09/12/17 11:36 ketorolac Allergy Intermediate RASH Verified 09/12/17 11:36 Results - Vital Signs Recent Vital Signs: Last Vital Signs Temp 97.9 F 09/12/17 11:36 Pulse 100 H 09/12/17 11:36 Resp 18 09/12/17 11:36 BP 123/75 09/12/17 11:36 Pulse Ox 100 09/12/17 13:40 - Labs Result Diagrams: 09/12/17 12:56 09/12/17 12:56 Labs: Laboratory Results - last 24 hr 09/12/17 09/12/17 09/12/17 12:56 12:56 12:56 WBC 11.9 H RBC 2.08 L Hgb 7.1 L Hct 20.9 L MCV 100.2 H D MCH 34.3 H MCHC 34.2 RDW 32.4 H Plt Count 290 MPV 7.4 Neut % (Auto) 60.1 Lymph % (Auto) 27.6 Dale % (Auto) 9.8 Eos % (Auto) 1.6 Baso % (Auto) 0.9 Neut # (Auto) 7.1 H Lymph # (Auto) 3.3 Dale # (Auto) 1.2 H Eos # (Auto) 0.2 Baso # (Auto) 0.1 Retic Count Sodium 142 Potassium 3.8 Chloride 106 Carbon Dioxide 25 Anion Gap 15 BUN 9 Creatinine 0.4 L Est GFR ( Amer) > 60 Est GFR (Non-Af Amer) > 60 Random Glucose 88 Calcium 8.6 Total Bilirubin 1.8 H AST 52 H ALT 96 H Alkaline Phosphatase 84 Total Protein 6.6 Albumin 3.7 Globulin 2.9 Albumin/Globulin Ratio 1.3 Urine Color Yellow Urine Clarity Clear Urine pH 6.0 Ur Specific Scurry 1.011 Urine Protein 2+ H Urine Glucose (UA) Normal Urine Ketones Negative Urine Blood Negative Urine Nitrate Negative Urine Bilirubin Negative Urine Urobilinogen Normal Ur Leukocyte Esterase Neg Urine WBC (Auto) 2 Urine RBC (Auto) 1 Ur Squamous Epith Cells < 1 Urine Bacteria Rare Urine HCG, Qual Negative 09/12/17 12:56 WBC RBC Hgb Hct MCV MCH MCHC RDW Plt Count MPV Neut % (Auto) Lymph % (Auto) Dale % (Auto) Eos % (Auto) Baso % (Auto) Neut # (Auto) Lymph # (Auto) Dale # (Auto) Eos # (Auto) Baso # (Auto) Retic Count 13.1 H Sodium Potassium Chloride Carbon Dioxide Anion Gap BUN Creatinine Est GFR ( Amer) Est GFR (Non-Af Amer) Random Glucose Calcium Total Bilirubin AST ALT Alkaline Phosphatase Total Protein Albumin Globulin Albumin/Globulin Ratio Urine Color Urine Clarity Urine pH Ur Specific Scurry Urine Protein Urine Glucose (UA) Urine Ketones Urine Blood Urine Nitrate Urine Bilirubin Urine Urobilinogen Ur Leukocyte Esterase Urine WBC (Auto) Urine RBC (Auto) Ur Squamous Epith Cells Urine Bacteria Urine HCG, Qual
[2017-09-12] MEDS: Pantoprazole 40 mg EC Tab PO SCH (16:00)
[2017-09-12] MEDS: DiphenhydrAMINE 50 mg/ml Inj IVP SCH ×2 (16:30→20:45)
[2017-09-12] MEDS ORDERED: HYDROmorphone 1 mg/ml ISec IVP SCH ×3 (18:00→23:52)
[2017-09-13] MEDS ORDERED: HYDROmorphone 1 mg/ml ISec IVP SCH (00:30)
[2017-09-13] MEDS: HYDROmorphone 1 mg/ml ISec IVP SCH ×5 (00:30→13:05)
[2017-09-13] MEDS: DiphenhydrAMINE 50 mg/ml Inj IVP SCH ×7 (04:00→22:00)
[2017-09-13] MEDS ORDERED: HYDROmorphone 1 mg/5ml IVP SCH (06:30)
[2017-09-13] MEDS: Pantoprazole 40 mg EC Tab PO SCH (09:57)
[2017-09-13] MEDS: Enoxaparin 40 mg Syringe SC SCH (09:57)
[2017-09-13] MEDS: Sodium Chloride 0.9% 1,000 ML IV SCH ×2 (13:12→22:32)
--- NOTE | 2017-09-13 17:14 | CP.PCM.PN ---
Subjective - Date & Time of Evaluation Date of Evaluation: 09/13/17 Time of Evaluation: 08:00 - Subjective Subjective: clinically same Objective - Vital Signs/Intake and Output Vital Signs (last 24 hours): Temp Pulse Resp BP Pulse Ox 98.2 F 85 20 108/63 96 09/13/17 15:18 09/13/17 15:18 09/13/17 15:18 09/13/17 15:18 09/13/17 15:18 Intake and Output: 09/13/17 09/13/17 06:59 18:59 Intake Total 810 600 Balance 810 600 - Medications Medications: Current Medications Diphenhydramine HCl (Benadryl) 25 mg IVP Q3 [facility] Last Admin: 09/13/17 15:20 Dose: 25 mg Enoxaparin Sodium (Lovenox) 40 mg SC DAILY [facility] Last Admin: 09/13/17 09:57 Dose: 40 mg Folic Acid (Folic Acid) 1 mg PO DAILY [facility] Last Admin: 09/13/17 09:57 Dose: 1 mg Hydromorphone HCl (Dilaudid) 6 mg PO Q3H [facility] Last Admin: 09/13/17 15:15 Dose: 6 mg Sodium Chloride (Sodium Chloride 0.9%) 1,000 mls @ 100 mls/hr IV .Q10H [facility] Last Admin: 09/13/17 13:12 Dose: 100 mls/hr Pantoprazole Sodium (Protonix Ec Tab) 40 mg PO DAILY [facility] Last Admin: 09/13/17 09:57 Dose: 40 mg - Labs Labs: 09/12/17 12:56 09/12/17 12:56 - Constitutional Appears: Well - Head Exam Head Exam: ATRAUMATIC, NORMAL INSPECTION, NORMOCEPHALIC - Eye Exam Eye Exam: EOMI, Normal appearance, PERRL Pupil Exam: NORMAL ACCOMODATION, PERRL - ENT Exam ENT Exam: Mucous Membranes Moist, Normal Exam - Neck Exam Neck Exam: Full ROM, Normal Inspection. absent: Lymphadenopathy - Respiratory Exam Respiratory Exam: Decreased Breath Sounds - Cardiovascular Exam Cardiovascular Exam: REGULAR RHYTHM, +S1, +S2 - GI/Abdominal Exam GI & Abdominal Exam: Soft, Diminished Bowel Sounds - Rectal Exam Rectal Exam: Deferred
[2017-09-14] MEDS: DiphenhydrAMINE 50 mg/ml Inj IVP SCH ×8 (01:10→22:00)
--- NOTE | 2017-09-14 05:34 | CP.PCM.PN ---
Subjective - Date & Time of Evaluation Date of Evaluation: 09/14/17 Time of Evaluation: 05:31 - Subjective Subjective: PGY-[address] Louis's service: Pt seen and examined at bedside. Nursing reports no acute events overnight. Patient reports pain in her abdomen, chest, and back, has decreased since admission. Describes pain as dull, constant pain, that rates as 2/10 with medication, and 8/10 without. She denies chest pain, lightheadedness, SOB, abdominal pain, N/V. Objective - Vital Signs/Intake and Output Vital Signs (last 24 hours): Temp Pulse Resp BP Pulse Ox 98.5 F 80 18 103/66 97 09/13/17 23:35 09/13/17 23:35 09/13/17 23:35 09/13/17 23:35 09/13/17 23:35 Intake and Output: 09/13/17 09/14/17 18:59 06:59 Intake Total 600 Balance 600 - Medications Medications: Current Medications Diphenhydramine HCl (Benadryl) 25 mg IVP Q3 [facility] Last Admin: 09/14/17 03:55 Dose: 25 mg Enoxaparin Sodium (Lovenox) 40 mg SC DAILY [facility] Last Admin: 09/13/17 09:57 Dose: 40 mg Folic Acid (Folic Acid) 1 mg PO DAILY [facility] Last Admin: 09/13/17 09:57 Dose: 1 mg Hydromorphone HCl (Dilaudid) 6 mg PO Q3 [facility] Last Admin: 09/14/17 03:55 Dose: 6 mg Sodium Chloride (Sodium Chloride 0.9%) 1,000 mls @ 100 mls/hr IV .Q10H [facility] Last Admin: 09/14/17 00:00 Dose: 100 mls/hr Pantoprazole Sodium (Protonix Ec Tab) 40 mg PO DAILY [facility] Last Admin: 09/13/17 09:57 Dose: 40 mg - Labs Labs: 09/12/17 12:56 09/12/17 12:56 - Constitutional Appears: Non-toxic, No Acute Distress - Head Exam Head Exam: ATRAUMATIC, NORMAL INSPECTION - Eye Exam Eye Exam: EOMI. absent: Scleral icterus Pupil Exam: PERRL - ENT Exam ENT Exam: Mucous Membranes Moist - Respiratory Exam Respiratory Exam: Clear to Ausculation Bilateral, NORMAL BREATHING PATTERN. absent: Rales, Rhonchi, Wheezes - Cardiovascular Exam Cardiovascular Exam: REGULAR RHYTHM, +S1, +S2 - GI/Abdominal Exam GI & Abdominal Exam: Soft, Tenderness (Diffuse abdominal pain), Normal Bowel Sounds Additional comments: Open splenectomy scar - Extremities Exam Extremities Exam: Normal Inspection. absent: Pedal Edema, Tenderness - Back Exam Back Exam: absent: CVA tenderness (L), CVA tenderness (R) - Neurological Exam Neurological Exam: Alert, Awake, Oriented x3 - Psychiatric Exam Psychiatric exam: Normal Affect, Normal Mood - Skin Skin Exam: Normal Color, Warm Assessment and Plan - Assessment and Plan (Free Text) Plan: Sickle cell crisis Admit to med/surg 08/22: Hgb 7.1 on admission - reticulocyte count (elevated 13.1) - monitor; will consider transfusion below Hgb of 5 -benadryl 25 mg IV q 3 hrs -dialudid 6 mg Q3H PRN -lovenox 40 mg SC daily -folic acid 1 mg daily -hydroxyurea 500mg PO daily - NS @ 100ml/hr Sees Dr. Portillo as outpatient - will need chelation therapy as outpatient - will consider consult in future if crisis worsens, o/w can see as outpatient Transaminitis/Elevated T-bili Admission AST/ALT: 52/96; T bili 1.8 - improved from last admission () Hepatitis panel negative (08/15/17) Monitor Macrocytic Anemia MCV 100 f/u B12/folate levels Proteinuria UA (09/12/17): 2+ protein Will repeat UA Leukocytosis improved over course - likely secondary to sickle cell will monitor, f/u AM labs GI/DVT ppx -prophylactic vaccinations -lovenox daily SC -protonix daily PO Jose Serrano PGY-[address] Ariel Louis; all management as per Dr. Ariel Louis
[2017-09-14 06:19] LABS: MEAN CELL VOLUME 96.7 fL (81.0-99.0); MEAN CORPUSCULAR HEMOGLOBIN 33.4 pg (27.0-31.0); MEAN CORPUSCULAR HGB CONC 34.5 g/dL (33.0-37.0); MEAN PLATELET VOLUME 7.7 fL (7.2-11.7); RBC 1.86 Mil/uL (3.80-5.20); RED CELL DISTRIBUTION WIDTH 29.2 % (11.5-14.5); WHITE BLOOD COUNT 12.5 K/uL (4.8-10.8)
[2017-09-14 06:49] LABS: HEMOGLOBIN 6.2 g/dL (11.0-16.0)
[2017-09-14 07:26] LABS: ALB/GLOB RATIO 1.2 (1.0-2.1); ALBUMIN 3.3 g/dL (3.5-5.0); ALT/SGPT 218 U/L (9-52); AST/SGOT 106 U/L (14-36); BLOOD UREA NITROGEN 11 mg/dL (7-17); CALCIUM 8.1 mg/dl (8.6-10.4); GFR AFRICAN-AMERICAN > 60; GFR NON-AFRICAN AMERICAN > 60
[2017-09-14] MEDS: Sodium Chloride 0.9% 1,000 ML IV SCH ×3 (09:00→21:22)
[2017-09-14] MEDS: Pantoprazole 40 mg EC Tab PO SCH (09:57)
[2017-09-14] MEDS: Enoxaparin 40 mg Syringe SC SCH (09:57)
--- NOTE | 2017-09-14 12:46 | CP.PCM.PN ---
Subjective - Date & Time of Evaluation Date of Evaluation: 09/14/17 Time of Evaluation: 08:40 - Subjective Subjective: clinically same Objective - Vital Signs/Intake and Output Vital Signs (last 24 hours): Temp Pulse Resp BP Pulse Ox 98.7 F 87 20 108/69 95 09/14/17 08:00 09/14/17 08:00 09/14/17 08:00 09/14/17 08:00 09/14/17 08:00 Intake and Output: 09/14/17 09/14/17 06:59 18:59 Intake Total 430 Balance 430 - Medications Medications: Current Medications Diphenhydramine HCl (Benadryl) 25 mg IVP Q3 [facility] Last Admin: 09/14/17 10:01 Dose: 25 mg Enoxaparin Sodium (Lovenox) 40 mg SC DAILY [facility] Last Admin: 09/14/17 09:57 Dose: 40 mg Folic Acid (Folic Acid) 1 mg PO DAILY [facility] Last Admin: 09/14/17 09:57 Dose: 1 mg Hydromorphone HCl (Dilaudid) 6 mg PO Q3 [facility] Last Admin: 09/14/17 10:01 Dose: 6 mg Hydroxyurea (Hydrea) 500 mg PO DAILY [facility] Last Admin: 09/14/17 10:03 Dose: 500 mg Sodium Chloride (Sodium Chloride 0.9%) 1,000 mls @ 100 mls/hr IV .Q10H [facility] Last Admin: 09/14/17 09:00 Dose: 100 mls/hr Pantoprazole Sodium (Protonix Ec Tab) 40 mg PO DAILY [facility] Last Admin: 09/14/17 09:57 Dose: 40 mg - Labs Labs: 09/14/17 06:02 09/14/17 06:02 - Constitutional Appears: Well - Head Exam Head Exam: ATRAUMATIC, NORMAL INSPECTION, NORMOCEPHALIC - Eye Exam Eye Exam: EOMI, Normal appearance, PERRL Pupil Exam: NORMAL ACCOMODATION, PERRL - ENT Exam ENT Exam: Mucous Membranes Moist, Normal Exam - Neck Exam Neck Exam: Full ROM, Normal Inspection. absent: Lymphadenopathy - Respiratory Exam Respiratory Exam: Decreased Breath Sounds - Cardiovascular Exam Cardiovascular Exam: REGULAR RHYTHM, +S1, +S2 - GI/Abdominal Exam GI & Abdominal Exam: Soft, Diminished Bowel Sounds - Rectal Exam Rectal Exam: Deferred
[2017-09-14 17:46] VITALS: O2SAT 96
[2017-09-15 00:17] VITALS: BP 101/62; PULSE 73; RESP 20; TEMP 98
[2017-09-15] MEDS: Sodium Chloride 0.9% 1,000 ML IV SCH (00:55)
[2017-09-15] MEDS: DiphenhydrAMINE 50 mg/ml Inj IVP SCH ×3 (01:05→07:30)
[2017-09-15 08:08] LABS: BASO # 0.1 K/uL (0.0-0.2); EOS # 0.4 K/uL (0.0-0.7); EOS % 3.4 % (0.0-4.0); HEMOGLOBIN 8.1 g/dL (11.0-16.0); MEAN PLATELET VOLUME 8.3 fL (7.2-11.7); NEUT # 5.5 K/uL (1.8-7.0)
[2017-09-15 08:14] LABS: BASO % 0.7 % (0.0-2.0); LYMPH # 4.6 K/uL (1.0-4.3); LYMPH % 38.6 % (20.0-40.0); MEAN CELL VOLUME 95.2 fL (81.0-99.0); MEAN CORPUSCULAR HEMOGLOBIN 33.2 pg (27.0-31.0); MEAN CORPUSCULAR HGB CONC 34.8 g/dL (33.0-37.0); MONO # 1.3 K/uL (0.0-0.8); MONO % 11.1 % (0.0-10.0); NEUT % 46.2 % (50.0-75.0); RBC 2.44 Mil/uL (3.80-5.20); RED CELL DISTRIBUTION WIDTH 24.1 % (11.5-14.5); WHITE BLOOD COUNT 11.9 K/uL (4.8-10.8)
[2017-09-15 08:29] LABS: ALB/GLOB RATIO 1.2 (1.0-2.1); ALBUMIN 3.4 g/dL (3.5-5.0); ALT/SGPT 188 U/L (9-52); AST/SGOT 88 U/L (14-36); BLOOD UREA NITROGEN 11 mg/dL (7-17); CALCIUM 8.4 mg/dl (8.6-10.4); GFR AFRICAN-AMERICAN > 60; GFR NON-AFRICAN AMERICAN > 60
== END 2017-09-15 09:35 | disposition left against medical advice (07) | DRG 395 ==
LOC: C.ER 11:31 → C.9E 13:45 → C.3T 14:15 → OBSVTOIN 09-14 16:26
PROVIDERS: ADMIT Internal Medicine Nephrology; ATTEND Internal Medicine Nephrology
PROC: 30233N1 Transfusion of Nonautologous Red Blood Cells into Peripheral Vein, Percutaneous Approach (ICD-10-PCS; principal; 2017-09-14)
DX: D57.00 Hb-SS disease with crisis, unspecified (principal); M54.9 Dorsalgia, unspecified; R10.9 Unspecified abdominal pain; Z87.01 Personal history of pneumonia (recurrent); Z90.49 Acquired absence of other specified parts of digestive tract

== ENCOUNTER 2017-09-21 09:23 | Emergency (ER) | payer MEDICAID ==
[2017-09-21 09:24] VITALS: BMI 22.6
[2017-09-21 09:43] VITALS: RESP 20
--- NOTE | 2017-09-21 10:36 | C.PDOC ---
History Of Present Illness 32 y/o female with history of sickle cell presents to ED stating "I have chronic body pain" for 4 days. Patient has multiple prior ED visits with same complaints and currently denies new injury, numbness, fever, chills, nausea, vomiting, weakness or any other complaints at this time. Time Seen by Provider: 09/21/17 09:41 Chief Complaint (Nursing): Pain, Chronic History Per: Patient History/Exam Limitations: no limitations Onset/Duration Of Symptoms: Days Current Symptoms Are (Timing): Still Present Past Medical History Reviewed: Historical Data, Nursing Documentation, Vital Signs Vital Signs: Last Vital Signs Temp 98 F 09/21/17 09:37 Pulse 89 09/21/17 09:37 Resp 20 09/21/17 09:37 BP 111/79 09/21/17 09:37 Pulse Ox 100 09/21/17 10:35 - Medical History PMH: Anemia, Bronchitis, Gall Bladder Disease (GB stone removed), Pneumonia, Sickle Cell Disease Surgical History: Cholecystectomy - [facility] Procedures INFLUENZA VACCINATION (03/16/12) INJECT/INFUSE ELECTROLYT (09/07/13) INJECT/INFUSE NEC (01/25/14) INSERT VAD RESERVOIR IN CHEST SUBCU/FASCIA, OPEN (05/31/17) INSERTION OF INFUSION DEV INTO SUP VENA CAVA, PERC APPROACH (01/25/17) NEBULIZER THERAPY (12/02/13) PACKED CELL TRANSFUSION (02/12/15) REMOVAL OF VAD FROM TRUNK SUBCU/FASCIA, OPEN APPROACH (04/15/16) TRANSFUSE NONAUT RED BLOOD CELLS IN PERIPH VEIN, PERC (09/14/17) VACCINATION NEC (08/22/13) Family History: States: No Known Family Hx - Social History Hx Tobacco Use: No Hx Alcohol Use: No Hx Substance Use: Yes - Immunization History Hx Tetanus Toxoid Vaccination: Yes Hx Influenza Vaccination: Yes (2016) Hx Pneumococcal Vaccination: Yes (2014) Review Of Systems Constitutional: Negative for: Fever, Chills Cardiovascular: Negative for: Chest Pain Respiratory: Negative for: Shortness of Breath Gastrointestinal: Negative for: Nausea, Vomiting Musculoskeletal: Positive for: Other (generalized body pain) Skin: Negative for: Rash Neurological: Negative for: Weakness, Numbness Physical Exam - Physical Exam Appears: Non-toxic, No Acute Distress Skin: Warm, Dry, No Rash Head: Atraumatic, Normacephalic Eye(s): bilateral: Normal Inspection, EOMI Oral Mucosa: Moist Neck: Normal ROM, Supple Chest: Symmetrical Cardiovascular: Rhythm Regular Respiratory: Normal Breath Sounds, No Accessory Muscle Use, No Rales, No Rhonchi , No Wheezing Gastrointestinal/Abdominal: Soft, No Tenderness, No Guarding, No Rebound Extremity: Normal ROM, Capillary Refill (<2 seconds) Neurological/Psych: Oriented x3, Normal Speech, Normal Cognition ED Course And Treatment O2 Sat by Pulse Oximetry: 100 (RA) Pulse Ox Interpretation: Normal Progress Note: Blood work, UA ordered. Benadryl and Dilaudid administered Disposition - Disposition Forms: [employer] (Malawian) - PA / STUDENT MINISTRIES DIRECTOR / Resident Statement MD/DO has reviewed & agrees with the documentation as recorded. - Scribe Statement The provider has reviewed the documentation as recorded by the Zacheryibvalarie Rodriguez All medical record entries made by the Zacheryibvalarie were at my direction and personally dictated by me. I have reviewed the chart and agree that the record accurately reflects my personal performance of the history, physical exam, medical decision making, and the department course for this patient. I have also personally directed, reviewed, and agree with the discharge instructions and disposition.
--- NOTE | 2017-09-21 10:47 | C.PDOC ---
History Of Present Illness 32 y/o female with history of sickle cell disease presents to ED secondary to exacerbation of her chronic pain. Pt denies any new symptoms or complaints. Patient has multiple prior ED visits with same complaints and currently denies new injury, numbness, fever, sob, chest pain, nausea, vomiting, weakness or any other complaints at this time. Time Seen by Provider: 09/21/17 09:41 Chief Complaint (Nursing): Pain, Chronic History Per: Patient History/Exam Limitations: no limitations Onset/Duration Of Symptoms: Days Current Symptoms Are (Timing): Still Present Past Medical History Reviewed: Historical Data, Nursing Documentation, Vital Signs Vital Signs: Last Vital Signs Temp 98.8 F 09/21/17 12:13 Pulse 78 09/21/17 12:13 Resp 20 09/21/17 12:13 BP 116/73 09/21/17 12:13 Pulse Ox 100 09/21/17 12:35 - Medical History PMH: Anemia, Bronchitis, Gall Bladder Disease (GB stone removed), Pneumonia, Sickle Cell Disease Surgical History: Cholecystectomy - [facility] Procedures INFLUENZA VACCINATION (03/16/12) INJECT/INFUSE ELECTROLYT (09/07/13) INJECT/INFUSE NEC (01/25/14) INSERT VAD RESERVOIR IN CHEST SUBCU/FASCIA, OPEN (05/31/17) INSERTION OF INFUSION DEV INTO SUP VENA CAVA, PERC APPROACH (01/25/17) NEBULIZER THERAPY (12/02/13) PACKED CELL TRANSFUSION (02/12/15) REMOVAL OF VAD FROM TRUNK SUBCU/FASCIA, OPEN APPROACH (04/15/16) TRANSFUSE NONAUT RED BLOOD CELLS IN PERIPH VEIN, PERC (09/14/17) VACCINATION NEC (08/22/13) Family History: States: No Known Family Hx - Social History Hx Tobacco Use: No Hx Alcohol Use: No Hx Substance Use: Yes - Immunization History Hx Tetanus Toxoid Vaccination: Yes Hx Influenza Vaccination: Yes (2016) Hx Pneumococcal Vaccination: Yes (2014) Review Of Systems Constitutional: Negative for: Fever, Chills Cardiovascular: Negative for: Chest Pain Gastrointestinal: Negative for: Nausea, Vomiting Musculoskeletal: Positive for: Other (generalized body pain) Skin: Negative for: Rash Physical Exam - Physical Exam Appears: Well, Non-toxic, No Acute Distress (smiling, pleasant) Skin: Warm, Dry, No Rash Head: Atraumatic, Normacephalic Eye(s): bilateral: Normal Inspection, EOMI Oral Mucosa: Moist Neck: Normal ROM, Supple Chest: Symmetrical Cardiovascular: Rhythm Regular Respiratory: Normal Breath Sounds, No Accessory Muscle Use, No Rales, No Rhonchi , No Wheezing Gastrointestinal/Abdominal: Soft, No Tenderness, No Guarding, No Rebound Extremity: Normal ROM, Capillary Refill (<2 seconds) Neurological/Psych: Oriented x3, Normal Speech Gait: Steady ED Course And Treatment - Laboratory Results Result Diagrams: 09/21/17 11:08 09/21/17 11:08 O2 Sat by Pulse Oximetry: 100 (RA) Pulse Ox Interpretation: Normal Progress Note: Blood work, UA ordered. Dilaudid and Benadryl administered. On re-evaluation, pt notes that she has a dental appointment and requests to be discharged. Has no complaints. Denies abd pain or chest pain. Afebrile. no sob. hemoglobin is trending up. Liver enzymes trending down. Pt instructed to follow up with PMD or return to ER if symtpoms persist or worsen. Disposition - Disposition Disposition: HOME/ ROUTINE Disposition Time: 12:00 Condition: STABLE Additional Instructions: Follow up with your primary medical doctor or clinic in 2-5 days for further evaluation. Return to the emergency department at any time if symptoms persist or worsen. Instructions: Chronic Pain (DC) Forms: [employer] (Austrian) - Clinical Impression Clinical Impression: Chronic pain, Sickle cell trait - PA / INTERNAL MEDICINE NURSE / Resident Statement MD/DO has reviewed & agrees with the documentation as recorded. - Scribe Statement The provider has reviewed the documentation as recorded by the Rosa Rodriguez All medical record entries made by the Zacheryibvalarie were at my direction and personally dictated by me. I have reviewed the chart and agree that the record accurately reflects my personal performance of the history, physical exam, medical decision making, and the department course for this patient. I have also personally directed, reviewed, and agree with the discharge instructions and disposition.
[2017-09-21 11:15] LABS: BASO # 0.1 K/uL (0.0-0.2); BASO % 1.1 % (0.0-2.0); EOS # 0.1 K/uL (0.0-0.7); HEMOGLOBIN 8.4 g/dL (11.0-16.0); LYMPH # 3.1 K/uL (1.0-4.3); LYMPH % 27.8 % (20.0-40.0); MEAN CELL VOLUME 95.3 fL (81.0-99.0); MEAN CORPUSCULAR HGB CONC 34.6 g/dL (33.0-37.0); MEAN PLATELET VOLUME 8.3 fL (7.2-11.7); MONO # 1.1 K/uL (0.0-0.8); NEUT # 6.7 K/uL (1.8-7.0); NEUT % 60.1 % (50.0-75.0); NRBC % 0.2 % (0.0-2.0); RBC 2.54 Mil/uL (3.80-5.20); RED CELL DISTRIBUTION WIDTH 24.3 % (11.5-14.5); WHITE BLOOD COUNT 11.2 K/uL (4.8-10.8)
[2017-09-21 11:16] LABS: SQUAMOUS EPITHIAL 1 /hpf (0-5); URINE BILIRUBIN NEGATIVE (NEGATIVE); URINE BLOOD NEGATIVE (NEGATIVE); URINE CLARITY Clear (Clear); URINE COLOR Yellow (YELLOW); URINE GLUCOSE (UA) NORMAL (Normal); URINE LEUKOCYTE ESTERASE NEG Leu/uL (Negative); URINE PROTEIN NEGATIVE (NEGATIVE); URINE UROBILINOGEN NORMAL mg/dL (0.2-1.0)
[2017-09-21 11:19] LABS: HCG,QUALITATIVE URINE NEGATIVE (NEGATIVE)
[2017-09-21 11:31] LABS: ALB/GLOB RATIO 1.3 (1.0-2.1); ALBUMIN 4.1 g/dL (3.5-5.0); ALT/SGPT 107 U/L (9-52); AST/SGOT 59 U/L (14-36); BLOOD UREA NITROGEN 12 mg/dL (7-17); GFR AFRICAN-AMERICAN > 60; GFR NON-AFRICAN AMERICAN > 60
[2017-09-21 12:13] VITALS: BP 116/73; PULSE 78; TEMP 98.8
[2017-09-21 12:35] VITALS: O2SAT 100
== END 2017-09-21 12:18 | disposition home or self-care (01) ==
LOC: C.ER 09:23
DX: G89.29 Other chronic pain (principal); D57.3 Sickle-cell trait

== ENCOUNTER 2017-09-26 07:29 | Inpatient (IN) | payer MEDICAID ==
[2017-09-26 07:30] VITALS: BMI 22.6
[2017-09-26] MEDS ORDERED: Sodium Chloride 0.9% 1,000 ML IV STA (07:49)
[2017-09-26] MEDS ORDERED: DiphenhydrAMINE 50 mg/ml Inj IVP STA (07:49)
[2017-09-26] MEDS ORDERED: DiphenhydrAMINE 50 mg/ml Inj ONE (08:11)
[2017-09-26] MEDS ORDERED: Sodium Chloride 0.9% 1,000 ML ONE (08:12)
[2017-09-26 08:20] LABS: BASO # 0.1 K/uL (0.0-0.2); BASO % 0.6 % (0.0-2.0); EOS # 0.2 K/uL (0.0-0.7); EOS % 1.2 % (0.0-4.0); HEMOGLOBIN 7.9 g/dL (11.0-16.0); LYMPH # 3.6 K/uL (1.0-4.3); LYMPH % 23.9 % (20.0-40.0); MEAN CORPUSCULAR HGB CONC 34.8 g/dL (33.0-37.0); MEAN PLATELET VOLUME 7.8 fL (7.2-11.7); MONO % 6.9 % (0.0-10.0); NEUT # 10.1 K/uL (1.8-7.0); NEUT % 67.4 % (50.0-75.0); NRBC % 0.5 % (0.0-2.0); RBC 2.34 Mil/uL (3.80-5.20); RED CELL DISTRIBUTION WIDTH 26.6 % (11.5-14.5)
[2017-09-26 08:22] LABS: MEAN CELL VOLUME 97.6 fL (81.0-99.0)
[2017-09-26 08:31] LABS: HCG,QUALITATIVE URINE NEGATIVE (NEGATIVE)
[2017-09-26 08:34] LABS: SQUAMOUS EPITHIAL < 1 /hpf (0-5); URINE BILIRUBIN NEGATIVE (NEGATIVE); URINE BLOOD NEGATIVE (NEGATIVE); URINE CLARITY Clear (Clear); URINE COLOR Yellow (YELLOW); URINE GLUCOSE (UA) NORMAL (Normal); URINE LEUKOCYTE ESTERASE NEG Leu/uL (Negative); URINE PROTEIN NEGATIVE (NEGATIVE); URINE UROBILINOGEN NORMAL mg/dL (0.2-1.0)
[2017-09-26 08:40] LABS: INR 1.2; PROTHROMBIN TIME 12.9 SECONDS (9.7-12.2)
[2017-09-26 08:41] LABS: ALB/GLOB RATIO 1.3 (1.0-2.1); ALBUMIN 3.9 g/dL (3.5-5.0); ALT/SGPT 144 U/L (9-52); AST/SGOT 96 U/L (14-36); BLOOD UREA NITROGEN 9 mg/dL (7-17); CALCIUM 8.6 mg/dl (8.6-10.4); GFR AFRICAN-AMERICAN > 60; GFR NON-AFRICAN AMERICAN > 60
--- NOTE | 2017-09-26 08:41 | C.PDOC ---
History Of Present Illness 32-year-old female, PMHx includes Sickle cell disease, presents to the emergency department for evaluation of exacerbation of chronic pain and generalized weakness. Patient denies fever, chills, nausea, vomiting. Has a Hx of multiple visits to ED for same complaint. Patient sts she recently was seen by Clinical Recruiter who told patient her anemia got worse. Time Seen by Provider: 09/26/17 07:40 Chief Complaint (Nursing): Pain, Chronic History Per: Patient History/Exam Limitations: no limitations Past Medical History Reviewed: Historical Data, Nursing Documentation, Vital Signs Vital Signs: Last Vital Signs Temp 98.1 F 09/26/17 12:30 Pulse 82 09/26/17 14:38 Resp 20 09/26/17 12:30 BP 110/68 09/26/17 14:38 Pulse Ox 98 09/26/17 12:30 - Medical History PMH: Anemia, Bronchitis, Gall Bladder Disease (GB stone removed), Pneumonia, Sickle Cell Disease Surgical History: Cholecystectomy - [facility] Procedures INFLUENZA VACCINATION (03/16/12) INJECT/INFUSE ELECTROLYT (09/07/13) INJECT/INFUSE NEC (01/25/14) INSERT VAD RESERVOIR IN CHEST SUBCU/FASCIA, OPEN (05/31/17) INSERTION OF INFUSION DEV INTO SUP VENA CAVA, PERC APPROACH (01/25/17) NEBULIZER THERAPY (12/02/13) PACKED CELL TRANSFUSION (02/12/15) REMOVAL OF VAD FROM TRUNK SUBCU/FASCIA, OPEN APPROACH (04/15/16) TRANSFUSE NONAUT RED BLOOD CELLS IN PERIPH VEIN, PERC (09/14/17) VACCINATION NEC (08/22/13) Family History: States: No Known Family Hx - Social History Hx Tobacco Use: No Hx Alcohol Use: No Hx Substance Use: Yes - Immunization History Hx Tetanus Toxoid Vaccination: Yes Hx Influenza Vaccination: Yes (2016) Hx Pneumococcal Vaccination: Yes (2014) Review Of Systems Constitutional: Positive for: Malaise. Negative for: Fever, Chills Cardiovascular: Negative for: Chest Pain, Palpitations Respiratory: Negative for: Shortness of Breath Gastrointestinal: Negative for: Nausea, Vomiting Neurological: Negative for: Weakness, Numbness, Headache, Dizziness Physical Exam - Physical Exam Appears: Non-toxic, No Acute Distress Skin: Normal Color, Warm, Dry, No Rash Head: Normacephalic Eye(s): bilateral: PERRL Nose: Normal Oral Mucosa: Moist Lips: Normal Appearing Neck: Normal ROM Cardiovascular: Rhythm Regular, No Murmur Respiratory: Normal Breath Sounds, No Accessory Muscle Use Gastrointestinal/Abdominal: Soft, No Tenderness Extremity: Normal ROM, No Deformity, No Swelling Neurological/Psych: Oriented x3, Normal Speech ED Course And Treatment - Laboratory Results Result Diagrams: 09/26/17 08:12 09/26/17 08:12 O2 Sat by Pulse Oximetry: 97 (RA) Pulse Ox Interpretation: Normal Progress Note: sickle cell PO protocol ordered. case was d/w who requested patient to be admitted to PMD service and she will be on consult. Case was d/w Pt's PMD who accepted patient to his service for observation. Disposition - Disposition Disposition: HOSPITALIZED Disposition Time: 10:37 Condition: FAIR - Clinical Impression Clinical Impression: Sickle cell anemia, Generalized pain, Weakness - Scribe Statement The provider has reviewed the documentation as recorded by the Scribe (Anika Shearer) All medical record entries made by the Scribe were at my direction and personally dictated by me. I have reviewed the chart and agree that the record accurately reflects my personal performance of the history, physical exam, medical decision making, and the department course for this patient. I have also personally directed, reviewed, and agree with the discharge instructions and disposition. Decision To Admit - Pt Status Changed To: Hospital Disposition Of: Observation - . Bed Request Type: Regular Admitting Physician: Enzo Louis Patient Diagnosis: Sickle cell anemia, Generalized pain, Weakness
--- NOTE | 2017-09-26 12:16 | CP.PCM.HP ---
Past Patient History - Infectious Disease Hx of Infectious Diseases: None - Tetanus Immunizations Tetanus Immunization: Up to Date - Past Medical History & Family History Past Medical History?: Yes - Past Social History Smoking Status: Never Smoked - PULMONARY Hx Bronchitis: Yes Hx Pneumonia: Yes - HEENT Hx HEENT Problems: No - HEMATOLOGICAL/ONCOLOGICAL Hx Anemia: Yes Hx Sickle Cell Disease: Yes - INTEGUMENTARY Hx Dermatological Problems: No - GASTROINTESTINAL Hx Gall Bladder Disease: Yes (GB stone removed) - PSYCHIATRIC Hx Substance Use: Yes - SURGICAL HISTORY Hx Cholecystectomy: Yes - ANESTHESIA Hx Anesthesia: Yes Hx Anesthesia Reactions: No Hx Malignant Hyperthermia: No Meds Allergies/Adverse Reactions: Allergies Allergy/AdvReac Type Severity Reaction Status Date / Time FISH Allergy Severe RASH Verified 09/26/17 07:38 oxycodone Allergy Severe RASH Verified 09/26/17 07:38 tramadol Allergy Severe RASH Verified 09/26/17 07:38 ketorolac Allergy Intermediate RASH Verified 09/26/17 07:38 Physical Exam - Constitutional Appears: Well - Head Exam Head Exam: ATRAUMATIC, NORMAL INSPECTION, NORMOCEPHALIC - Eye Exam Eye Exam: EOMI, Normal appearance, PERRL Pupil Exam: NORMAL ACCOMODATION, PERRL - ENT Exam ENT Exam: Mucous Membranes Moist, Normal Exam - Neck Exam Neck exam: Positive for: Normal Inspection - Respiratory Exam Respiratory Exam: Decreased Breath Sounds - Cardiovascular Exam Cardiovascular Exam: REGULAR RHYTHM, +S1, +S2 - GI/Abdominal Exam GI & Abdominal Exam: Diminished Bowel Sounds, Soft - Rectal Exam Rectal Exam: Deferred Results - Vital Signs Recent Vital Signs: Last Vital Signs Temp 98.7 F 09/26/17 11:50 Pulse 81 09/26/17 11:50 Resp 16 09/26/17 11:50 BP 114/78 09/26/17 11:50 Pulse Ox 99 09/26/17 11:50 - Labs Result Diagrams: 09/26/17 08:12 09/26/17 08:12 Labs: Laboratory Results - last 24 hr 09/26/17 09/26/17 09/26/17 08:12 08:12 08:12 WBC 15.0 H RBC 2.34 L Hgb 7.9 L Hct 22.8 L MCV 97.6 D MCH 34.0 H MCHC 34.8 RDW 26.6 H Plt Count 369 D MPV 7.8 Neut % (Auto) 67.4 Lymph % (Auto) 23.9 [place] % (Auto) 6.9 Eos % (Auto) 1.2 Baso % (Auto) 0.6 Neut # (Auto) 10.1 H Lymph # (Auto) 3.6 [place] # (Auto) 1.0 H Eos # (Auto) 0.2 Baso # (Auto) 0.1 Retic Count 11.6 H PT 12.9 H INR 1.2 APTT 35 H Sodium 141 Potassium 3.7 Chloride 107 Carbon Dioxide 21 L Anion Gap 16 BUN 9 Creatinine 0.5 L Est GFR ( Amer) > 60 Est GFR (Non-Af Amer) > 60 Random Glucose 90 Calcium 8.6 Total Bilirubin 1.9 H AST 96 H D ALT 144 H D Alkaline Phosphatase 134 H D Total Protein 6.9 Albumin 3.9 Globulin 3.1 Albumin/Globulin Ratio 1.3 Urine Color Urine Clarity Urine pH Ur Specific [place] Urine Protein Urine Glucose (UA) Urine Ketones Urine Blood Urine Nitrate Urine Bilirubin Urine Urobilinogen Ur Leukocyte Esterase Urine WBC (Auto) Urine RBC (Auto) Ur Squamous Epith Cells Urine HCG, Qual Blood Type Antibody Screen 09/26/17 09/26/17 08:12 08:22 WBC RBC Hgb Hct MCV MCH MCHC RDW Plt Count MPV Neut % (Auto) Lymph % (Auto) [place] % (Auto) Eos % (Auto) Baso % (Auto) Neut # (Auto) Lymph # (Auto) [place] # (Auto) Eos # (Auto) Baso # (Auto) Retic Count PT INR APTT Sodium Potassium Chloride Carbon Dioxide Anion Gap BUN Creatinine Est GFR ( Amer) Est GFR (Non-Af Amer) Random Glucose Calcium Total Bilirubin AST ALT Alkaline Phosphatase Total Protein Albumin Globulin Albumin/Globulin Ratio Urine Color Yellow Urine Clarity Clear Urine pH 5.0 Ur Specific [place] 1.011 Urine Protein Negative Urine Glucose (UA) Normal Urine Ketones Negative Urine Blood Negative Urine Nitrate Negative Urine Bilirubin Negative Urine Urobilinogen Normal Ur Leukocyte Esterase Neg Urine WBC (Auto) 1 Urine RBC (Auto) < 1 Ur Squamous Epith Cells < 1 Urine HCG, Qual Negative Blood Type A POSITIVE Antibody Screen Negative
[2017-09-26 12:30] VITALS: RESP 20
[2017-09-26] MEDS: DiphenhydrAMINE 50 mg/ml Inj IVP PRN ×4 (14:29→23:52)
[2017-09-26] MEDS: Morphine 4 MG/ML VIAL IVP PRN ×4 (14:30→23:52)
[2017-09-26] MEDS: Sodium Chloride 0.9% 1,000 ML IV SCH (14:32)
[2017-09-27] MEDS: DiphenhydrAMINE 50 mg/ml Inj IVP PRN ×7 (02:56→22:05)
[2017-09-27] MEDS: Morphine 4 MG/ML VIAL IVP PRN ×7 (02:57→22:06)
[2017-09-27] MEDS: Sodium Chloride 0.9% 1,000 ML IV SCH ×2 (02:59→18:55)
[2017-09-27 07:46] LABS: HEMOGLOBIN 7.1 g/dL (11.0-16.0); MEAN CELL VOLUME 99.1 fL (81.0-99.0); MEAN CORPUSCULAR HEMOGLOBIN 32.7 pg (27.0-31.0); MEAN PLATELET VOLUME 8.2 fL (7.2-11.7); RBC 2.16 Mil/uL (3.80-5.20); RED CELL DISTRIBUTION WIDTH 26.5 % (11.5-14.5); WHITE BLOOD COUNT 12.2 K/uL (4.8-10.8)
[2017-09-27 07:55] LABS: BLOOD UREA NITROGEN 13 mg/dL (7-17); GFR AFRICAN-AMERICAN > 60; GFR NON-AFRICAN AMERICAN > 60
[2017-09-27] MEDS: Enoxaparin 40 mg Syringe SC SCH (09:08)
[2017-09-27] MEDS: Pantoprazole 40 mg EC Tab PO SCH (09:09)
--- NOTE | 2017-09-27 16:28 | CP.PCM.PN ---
Subjective - Date & Time of Evaluation Date of Evaluation: 09/27/17 Time of Evaluation: 07:40 - Subjective Subjective: clinically same Objective - Vital Signs/Intake and Output Vital Signs (last 24 hours): Temp Pulse Resp BP Pulse Ox 97.6 F 88 20 105/67 99 09/27/17 08:00 09/27/17 08:00 09/27/17 08:00 09/27/17 08:00 09/27/17 08:00 Intake and Output: 09/27/17 09/27/17 06:59 18:59 Intake Total 1100 Balance 1100 - Medications Medications: Current Medications Diphenhydramine HCl (Benadryl) 25 mg IVP Q3 PRN PRN Reason: Itching / Pruritus Last Admin: 09/27/17 16:06 Dose: 25 mg Enoxaparin Sodium (Lovenox) 40 mg SC DAILY [facility] Last Admin: 09/27/17 09:08 Dose: 40 mg Sodium Chloride (Sodium Chloride 0.9%) 1,000 mls @ 75 mls/hr IV .[id number] [facility] Last Admin: 09/27/17 02:59 Dose: 75 mls/hr Morphine Sulfate (Morphine) 6 mg IVP Q3 PRN PRN Reason: Pain, severe (8-10) Last Admin: 09/27/17 16:05 Dose: 6 mg Pantoprazole Sodium (Protonix Ec Tab) 40 mg PO DAILY [facility] Last Admin: 09/27/17 09:09 Dose: 40 mg - Labs Labs: 09/27/17 07:30 09/27/17 07:30 PT 12.9 SECONDS (9.7-12.2) H 09/26/17 08:12 INR 1.2 09/26/17 08:12 APTT 35 SECONDS (21-34) H 09/26/17 08:12 - Constitutional Appears: Well - Head Exam Head Exam: ATRAUMATIC, NORMAL INSPECTION, NORMOCEPHALIC - Eye Exam Eye Exam: EOMI, Normal appearance, PERRL Pupil Exam: NORMAL ACCOMODATION, PERRL - ENT Exam ENT Exam: Mucous Membranes Moist, Normal Exam - Neck Exam Neck Exam: Full ROM, Normal Inspection. absent: Lymphadenopathy - Respiratory Exam Respiratory Exam: Decreased Breath Sounds - Cardiovascular Exam Cardiovascular Exam: REGULAR RHYTHM, +S1, +S2 - GI/Abdominal Exam GI & Abdominal Exam: Soft, Diminished Bowel Sounds - Rectal Exam Rectal Exam: Deferred
[2017-09-28] MEDS: Morphine 4 MG/ML VIAL IVP PRN ×8 (01:04→22:16)
[2017-09-28] MEDS: DiphenhydrAMINE 50 mg/ml Inj IVP PRN ×6 (01:04→16:22)
[2017-09-28] MEDS: Sodium Chloride 0.9% 1,000 ML IV SCH ×3 (06:34→21:42)
[2017-09-28 07:29] LABS: HEMOGLOBIN 6.8 g/dL (11.0-16.0); MEAN CELL VOLUME 97.9 fL (81.0-99.0); MEAN CORPUSCULAR HEMOGLOBIN 32.4 pg (27.0-31.0); MEAN CORPUSCULAR HGB CONC 33.1 g/dL (33.0-37.0); RBC 2.11 Mil/uL (3.80-5.20); RED CELL DISTRIBUTION WIDTH 25.7 % (11.5-14.5); WHITE BLOOD COUNT 12.4 K/uL (4.8-10.8)
[2017-09-28 07:57] LABS: BLOOD UREA NITROGEN 13 mg/dL (7-17); CALCIUM 8.2 mg/dl (8.6-10.4); GFR AFRICAN-AMERICAN > 60; GFR NON-AFRICAN AMERICAN > 60
[2017-09-28] MEDS: Enoxaparin 40 mg Syringe SC SCH (10:09)
[2017-09-28] MEDS: Pantoprazole 40 mg EC Tab PO SCH (10:10)
--- NOTE | 2017-09-28 11:44 | CP.PCM.PN ---
<Kianna Miller - Last Filed: 09/28/17 14:40> Subjective - Date & Time of Evaluation Date of Evaluation: 09/28/17 Time of Evaluation: 11:40 - Subjective Subjective: PGY2 progress note for Dr. Louis 32 year old female with past medical history of sickle cell anemia is admitted to hospital for sickle cell pain crisis. Patient states that 3 days ago, she was having diffuse body aches mostly located in her back, abdomen and chest pain. Patient is seeing heme/onc, Dr. Drew for management her sickle cell. Currently, pt complains of diffuse body aches 10/10 in severity. Denies having any CP, SOB, abd pain, N/V/D/C, F/c. pt is tolerating PO intake. Objective - Vital Signs/Intake and Output Vital Signs (last 24 hours): Temp Pulse Resp BP Pulse Ox 98.5 F 85 20 114/77 97 09/28/17 07:00 09/28/17 07:00 09/28/17 07:00 09/28/17 07:00 09/28/17 07:00 Intake and Output: 09/28/17 09/28/17 06:59 18:59 Intake Total 1200 1100 Balance 1200 1100 - Medications Medications: Current Medications Diphenhydramine HCl (Benadryl) 25 mg IVP Q3 PRN PRN Reason: Itching / Pruritus Last Admin: 09/28/17 10:05 Dose: 25 mg Enoxaparin Sodium (Lovenox) 40 mg SC DAILY [facility] Last Admin: 09/28/17 10:09 Dose: 40 mg Sodium Chloride (Sodium Chloride 0.9%) 1,000 mls @ 75 mls/hr IV .[id number] [facility] Last Admin: 09/28/17 06:34 Dose: 75 mls/hr Morphine Sulfate (Morphine) 6 mg IVP Q3 PRN PRN Reason: Pain, severe (8-10) Last Admin: 09/28/17 10:05 Dose: 6 mg Pantoprazole Sodium (Protonix Ec Tab) 40 mg PO DAILY [facility] Last Admin: 09/28/17 10:10 Dose: 40 mg - Labs Labs: 09/28/17 07:18 09/28/17 07:18 PT 12.9 SECONDS (9.7-12.2) H 09/26/17 08:12 INR 1.2 09/26/17 08:12 APTT 35 SECONDS (21-34) H 09/26/17 08:12 - Constitutional Appears: Non-toxic, No Acute Distress - Head Exam Head Exam: ATRAUMATIC - ENT Exam ENT Exam: Mucous Membranes Moist - Respiratory Exam Respiratory Exam: Clear to Ausculation Bilateral. absent: Accessory Muscle Use , Rales, Rhonchi, Wheezes, Respiratory Distress - Cardiovascular Exam Cardiovascular Exam: REGULAR RHYTHM, +S1, +S2. absent: Gallop, Rubs, Murmur - GI/Abdominal Exam GI & Abdominal Exam: Soft, Normal Bowel Sounds. absent: Distended, Firm, Guarding, Rigid, Tenderness, Organomegaly - Extremities Exam Extremities Exam: absent: Pedal Edema, Tenderness - Neurological Exam Neurological Exam: Alert, Awake, Oriented x3 - Psychiatric Exam Psychiatric exam: Normal Affect, Normal Mood - Skin Skin Exam: Dry, Intact, Normal Color, Warm Assessment and Plan - Assessment and Plan (Free Text) Assessment: Sickle Cell pain crisis - On admission, Hgb was 7.9 and Retic count was 11.6. Hgb this am is 6.8 - Will check type and cross and retic count today - Continue pain management with morphine 6 mg IVP q3. Benadryl 25 mg IVP q3 prn. Will consider decreasing benadryl dosage - Heme/onc, Dr. Drew is consulted. - Continue IV hydration Transaminitis - Continue IV hydration - will continue to monitor - Recent hepatitis panel in 08/15/17 was negative Prophylaxis - lovenox - Protonix All managements and orders per Dr. Louis <Enzo Louis - Last Filed: 09/29/17 23:37> Objective - Vital Signs/Intake and Output Vital Signs (last 24 hours): Temp Pulse Resp BP Pulse Ox 98.3 F 81 20 106/62 97 09/29/17 07:00 09/29/17 07:00 09/29/17 07:00 09/29/17 07:00 09/29/17 07:00 - Labs Labs: 09/29/17 06:29 09/29/17 06:29 PT 12.9 SECONDS (9.7-12.2) H 09/26/17 08:12 INR 1.2 09/26/17 08:12 APTT 35 SECONDS (21-34) H 09/26/17 08:12 Assessment and Plan (1) Abdominal pain Status: Acute (2) Abdominal pain Status: Acute (3) Abnormal LFTs Status: Acute (4) Admission for fitting of port-a-cath Status: Acute (5) Anemia Status: Acute (6) Anemia Status: Acute (7) Cannabis use disorder, mild, abuse Status: Acute (8) Chronic abdominal pain Status: Acute (9) Chronic pain Status: Acute (10) Chronic pain disorder Status: Acute (11) Contusion of back Status: Acute (12) Contusion of hip, right Status: Acute (13) Dehydration Status: Acute (14) Drug-seeking behavior Status: Acute (15) Dysfunctional uterine bleeding Status: Acute (16) Elevated LFTs Status: Acute (17) Generalized pain Status: Acute (18) Headache Status: Acute (19) Hordeolum externum (stye) Status: Acute (20) Iron overload due to repeated red blood cell transfusions Status: Acute (21) Leukocytosis Status: Acute (22) Liver lesion Status: Acute (23) Opioid abuse Status: Acute (24) Pain Status: Acute (25) Pain Status: Acute (26) Pain disorder Status: Acute (27) Pneumonia Status: Acute (28) Prophylactic measure Status: Acute (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 (30) Sickle cell anemia Status: Acute (31) Sickle cell anemia with pain Status: Acute (32) Sickle cell crisis Status: Acute (33) Sickle cell crisis Status: Acute (34) Sickle cell disease Status: Acute (35) Sickle cell pain crisis Status: Acute (36) Sickle cell pain crisis Status: Acute (37) Sickle cell trait Status: Acute (38) Sickle-cell disease with pain Status: Acute (39) 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 Status: Acute (40) Symptomatic anemia Status: Acute (41) Total body pain Status: Acute (42) UTI (urinary tract infection) Status: Acute (43) Uncontrolled pain Status: Acute (44) Viral upper respiratory infection Status: Acute (45) Weakness Status: Acute (46) Chronic pain Status: Chronic (47) Narcotic drug use Status: Chronic (48) Sickle cell anemia Status: Chronic (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
--- NOTE | 2017-09-28 17:09 | CP.PCM.CON ---
History of Present Illness - History of Present Illness History of Present Illness: 32 yo woman known to the office for several years, frequent admissions at local area hospitals, 2-3 ER visits, just in per month, last seen in the office on 09/23/17, after being lost to follow up for several years. She seemed fine, not c /o any pain, was given dilaudid and asked to return in one month, also asked to call the service if she developed pain in between appointments. She was in the ER on 09/26, saying she had pain for 3 days, mainly in her joints and back. Denies ETOH use or other illegal drug use She was found to have unchanged Hgb, increased LFTs. Past Patient History - Infectious Disease Hx of Infectious Diseases: None - Tetanus Immunizations Tetanus Immunization: Up to Date - Past Medical History & Family History Past Medical History?: Yes - Past Social History Smoking Status: Never Smoked - PULMONARY Hx Bronchitis: Yes Hx Pneumonia: Yes - HEENT Hx HEENT Problems: No - HEMATOLOGICAL/ONCOLOGICAL Hx Anemia: Yes Hx Sickle Cell Disease: Yes - INTEGUMENTARY Hx Dermatological Problems: No - GASTROINTESTINAL Hx Gall Bladder Disease: Yes (GB stone removed) - PSYCHIATRIC Hx Substance Use: Yes - SURGICAL HISTORY Hx Cholecystectomy: Yes - ANESTHESIA Hx Anesthesia: Yes Hx Anesthesia Reactions: No Hx Malignant Hyperthermia: No Meds Allergies/Adverse Reactions: Allergies Allergy/AdvReac Type Severity Reaction Status Date / Time FISH Allergy Severe RASH Verified 09/26/17 07:38 oxycodone Allergy Severe RASH Verified 09/26/17 07:38 tramadol Allergy Severe RASH Verified 09/26/17 07:38 ketorolac Allergy Intermediate RASH Verified 09/26/17 07:38 - Medications Medications: Current Medications Diphenhydramine HCl (Benadryl) 25 mg PO Q6 PRN PRN Reason: Allergy symptoms Enoxaparin Sodium (Lovenox) 40 mg SC DAILY [facility] Last Admin: 09/28/17 10:09 Dose: 40 mg Folic Acid (Folic Acid) 1 mg PO DAILY [facility] Hydroxyurea (Hydrea) 500 mg PO BID [facility] Sodium Chloride (Sodium Chloride 0.9%) 1,000 mls @ 75 mls/hr IV .[id number] [facility] Last Admin: 09/28/17 06:34 Dose: 75 mls/hr Morphine Sulfate (Morphine) 6 mg IVP Q3 PRN PRN Reason: Pain, severe (8-10) Last Admin: 09/28/17 16:20 Dose: 6 mg Pantoprazole Sodium (Protonix Ec Tab) 40 mg PO DAILY [facility] Last Admin: 09/28/17 10:10 Dose: 40 mg Results - Vital Signs Recent Vital Signs: Last Vital Signs Temp 98.8 F 09/28/17 15:00 Pulse 92 H 09/28/17 15:00 Resp 20 09/28/17 15:00 BP 100/51 L 09/28/17 15:00 Pulse Ox 96 09/28/17 15:00 - Labs Result Diagrams: 09/29/17 06:29 09/29/17 06:29 Labs: Laboratory Results - last 24 hr 09/28/17 09/28/17 07:18 07:18 WBC 12.4 H RBC 2.11 L Hgb 6.8 L Hct 20.6 L MCV 97.9 MCH 32.4 H MCHC 33.1 RDW 25.7 H Plt Count 250 MPV 8.0 Sodium 138 Potassium 4.0 Chloride 103 Carbon Dioxide 24 Anion Gap 14 BUN 13 Creatinine 0.5 L Est GFR ( Amer) > 60 Est GFR (Non-Af Amer) > 60 Random Glucose 85 Calcium 8.2 L
--- NOTE | 2017-09-28 18:31 | CP.PCM.PN ---
Subjective - Date & Time of Evaluation Date of Evaluation: 09/28/17 Time of Evaluation: 07:10 - Subjective Subjective: clinically same Objective - Vital Signs/Intake and Output Vital Signs (last 24 hours): Temp Pulse Resp BP Pulse Ox 98.8 F 92 H 20 100/51 L 96 09/28/17 15:00 09/28/17 15:00 09/28/17 15:00 09/28/17 15:00 09/28/17 15:00 Intake and Output: 09/28/17 09/28/17 06:59 18:59 Intake Total 1200 1100 Balance 1200 1100 - Medications Medications: Current Medications Diphenhydramine HCl (Benadryl) 25 mg PO Q6 PRN PRN Reason: Allergy symptoms Enoxaparin Sodium (Lovenox) 40 mg SC DAILY [facility] Last Admin: 09/28/17 10:09 Dose: 40 mg Folic Acid (Folic Acid) 1 mg PO DAILY [facility] Hydroxyurea (Hydrea) 500 mg PO BID [facility] Sodium Chloride (Sodium Chloride 0.9%) 1,000 mls @ 75 mls/hr IV .[id number] [facility] Last Admin: 09/28/17 06:34 Dose: 75 mls/hr Morphine Sulfate (Morphine) 6 mg IVP Q3 PRN PRN Reason: Pain, severe (8-10) Last Admin: 09/28/17 16:20 Dose: 6 mg Pantoprazole Sodium (Protonix Ec Tab) 40 mg PO DAILY [facility] Last Admin: 09/28/17 10:10 Dose: 40 mg - Labs Labs: 09/28/17 07:18 09/28/17 07:18 PT 12.9 SECONDS (9.7-12.2) H 09/26/17 08:12 INR 1.2 09/26/17 08:12 APTT 35 SECONDS (21-34) H 09/26/17 08:12 - Constitutional Appears: Well - Head Exam Head Exam: ATRAUMATIC, NORMAL INSPECTION, NORMOCEPHALIC - Eye Exam Eye Exam: EOMI, Normal appearance, PERRL Pupil Exam: NORMAL ACCOMODATION, PERRL - ENT Exam ENT Exam: Mucous Membranes Moist, Normal Exam - Neck Exam Neck Exam: Full ROM, Normal Inspection. absent: Lymphadenopathy - Respiratory Exam Respiratory Exam: Decreased Breath Sounds - Cardiovascular Exam Cardiovascular Exam: REGULAR RHYTHM, +S1, +S2 - GI/Abdominal Exam GI & Abdominal Exam: Soft, Diminished Bowel Sounds - Rectal Exam Rectal Exam: Deferred Assessment and Plan (1) Abdominal pain Status: Acute (2) Abdominal pain Status: Acute (3) Abnormal LFTs Status: Acute (4) Admission for fitting of port-a-cath Status: Acute (5) Anemia Status: Acute (6) Anemia Status: Acute (7) Cannabis use disorder, mild, abuse Status: Acute (8) Chronic abdominal pain Status: Acute (9) Chronic pain Status: Acute (10) Chronic pain disorder Status: Acute (11) Contusion of back Status: Acute (12) Contusion of hip, right Status: Acute (13) Dehydration Status: Acute (14) Drug-seeking behavior Status: Acute (15) Dysfunctional uterine bleeding Status: Acute (16) Elevated LFTs Status: Acute (17) Generalized pain Status: Acute (18) Headache Status: Acute (19) Hordeolum externum (stye) Status: Acute (20) Iron overload due to repeated red blood cell transfusions Status: Acute (21) Leukocytosis Status: Acute (22) Liver lesion Status: Acute (23) Opioid abuse Status: Acute (24) Pain Status: Acute (25) Pain Status: Acute (26) Pain disorder Status: Acute (27) Pneumonia Status: Acute (28) Prophylactic measure Status: Acute (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 (30) Sickle cell anemia Status: Acute (31) Sickle cell anemia with pain Status: Acute (32) Sickle cell crisis Status: Acute (33) Sickle cell crisis Status: Acute (34) Sickle cell disease Status: Acute (35) Sickle cell pain crisis Status: Acute (36) Sickle cell pain crisis Status: Acute (37) Sickle cell trait Status: Acute (38) Sickle-cell disease with pain Status: Acute (39) 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 Status: Acute (40) Symptomatic anemia Status: Acute (41) Total body pain Status: Acute (42) UTI (urinary tract infection) Status: Acute (43) Uncontrolled pain Status: Acute (44) Viral upper respiratory infection Status: Acute (45) Weakness Status: Acute (46) Chronic pain Status: Chronic (47) Narcotic drug use Status: Chronic (48) Sickle cell anemia Status: Chronic (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 Hgb this am is 6.8 - Will check type and cross and retic count today - Continue pain management with morphine 6 mg IVP q3. Benadryl 25 mg IVP q3 prn. Will consider decreasing benadryl dosage - Heme/onc, Dr. Drew is consulted. - Continue IV hydration Transaminitis - Continue IV hydration - will continue to monitor - Recent hepatitis panel in 08/15/17 was negative Prophylaxis - lovenox - Protonix
[2017-09-28] MEDS ORDERED: Iohexol 240 (50 ml) PO ONE (19:15)
[2017-09-29] MEDS: Morphine 4 MG/ML VIAL IVP PRN ×4 (01:18→10:57)
[2017-09-29 06:34] LABS: BASO # 0.1 K/uL (0.0-0.2); BASO % 0.9 % (0.0-2.0); EOS # 0.4 K/uL (0.0-0.7); EOS % 3.3 % (0.0-4.0); HEMOGLOBIN 6.9 g/dL (11.0-16.0); LYMPH % 42.4 % (20.0-40.0); MEAN CORPUSCULAR HEMOGLOBIN 32.9 pg (27.0-31.0); MEAN CORPUSCULAR HGB CONC 33.9 g/dL (33.0-37.0); MEAN PLATELET VOLUME 7.7 fL (7.2-11.7); MONO % 8.6 % (0.0-10.0); NEUT # 5.3 K/uL (1.8-7.0); NEUT % 44.8 % (50.0-75.0); NRBC % 0.6 % (0.0-2.0); RBC 2.09 Mil/uL (3.80-5.20); RED CELL DISTRIBUTION WIDTH 25.8 % (11.5-14.5); WHITE BLOOD COUNT 11.8 K/uL (4.8-10.8)
--- NOTE | 2017-09-29 07:33 | CP.PCM.PN ---
<Tanisha Almodovar - Last Filed: 09/29/17 13:26> Subjective - Date & Time of Evaluation Date of Evaluation: 09/29/17 Time of Evaluation: 08:00 - Subjective Subjective: PGY2 progress note for Dr. Louis 32 year old female with past medical history of sickle cell anemia is admitted to hospital for sickle cell pain crisis. Currently, pt complains of diffuse body aches which are still present but decreased in nature compared to yesterday. Denies having any CP, SOB, abd pain, N/V/D/C, F/c. She is tolerating PO intake and having regular bowel movement. Objective - Vital Signs/Intake and Output Vital Signs (last 24 hours): Temp Pulse Resp BP Pulse Ox 98.2 F 92 H 20 126/69 94 L 09/29/17 00:00 09/29/17 00:00 09/29/17 00:00 09/29/17 00:00 09/29/17 00:00 - Medications Medications: Current Medications Diphenhydramine HCl (Benadryl) 25 mg PO Q6 PRN PRN Reason: Allergy symptoms Last Admin: 09/29/17 04:22 Dose: 25 mg Enoxaparin Sodium (Lovenox) 40 mg SC DAILY [facility] Last Admin: 09/28/17 10:09 Dose: 40 mg Folic Acid (Folic Acid) 1 mg PO DAILY [facility] Last Admin: 09/28/17 18:00 Dose: 1 mg Hydroxyurea (Hydrea) 500 mg PO BID [facility] Last Admin: 09/28/17 19:57 Dose: 500 mg Sodium Chloride (Sodium Chloride 0.9%) 1,000 mls @ 75 mls/hr IV .[id number] [facility] Last Admin: 09/28/17 21:42 Dose: Not Given Morphine Sulfate (Morphine) 6 mg IVP Q3 PRN PRN Reason: Pain, severe (8-10) Last Admin: 09/29/17 07:19 Dose: 4 mg Pantoprazole Sodium (Protonix Ec Tab) 40 mg PO DAILY [facility] Last Admin: 09/28/17 10:10 Dose: 40 mg - Labs Labs: 09/29/17 06:29 09/28/17 07:18 PT 12.9 SECONDS (9.7-12.2) H 09/26/17 08:12 INR 1.2 09/26/17 08:12 APTT 35 SECONDS (21-34) H 09/26/17 08:12 - Constitutional Appears: Non-toxic, No Acute Distress - Head Exam Head Exam: ATRAUMATIC, NORMAL INSPECTION - Eye Exam Eye Exam: EOMI Pupil Exam: NORMAL ACCOMODATION - ENT Exam ENT Exam: Mucous Membranes Moist - Respiratory Exam Respiratory Exam: Clear to Ausculation Bilateral, NORMAL BREATHING PATTERN. absent: Respiratory Distress - Cardiovascular Exam Cardiovascular Exam: REGULAR RHYTHM, +S1, +S2 - GI/Abdominal Exam GI & Abdominal Exam: Soft, Normal Bowel Sounds. absent: Distended, Firm, Guarding, Tenderness - Extremities Exam Extremities Exam: Normal Inspection - Back Exam Back Exam: NORMAL INSPECTION. absent: CVA tenderness (L), CVA tenderness (R), paraspinal tenderness - Neurological Exam Neurological Exam: Alert, Awake, CN II-XII Intact, Normal Gait, Oriented x3 Neuro motor strength exam: Left Upper Extremity: 5, Right Upper Extremity: 5, Left Lower Extremity: 5, Right Lower Extremity: 5 - Psychiatric Exam Psychiatric exam: Anxious - Skin Skin Exam: Dry, Intact, Normal Color, Warm Assessment and Plan - Assessment and Plan (Free Text) Assessment: Sickle Cell pain crisis - On admission, Hgb was 7.9 and Retic count was 11.6. Hgb this am is 6.8 - Will check type and cross and retic count today - Continue pain management with morphine 6 mg IVP q3. Benadryl 25 mg IVP q3 prn. Will consider decreasing benadryl dosage - Heme/onc, Dr. Drew is consulted - no need for transfusion or further treatment - Continue IV hydration, NS at 75 cc/hour - Folic Acid 1mg PO daily - Hydroxyurea 500mg PO BID Transaminitis - Continue IV hydration - Recent hepatitis panel in 08/15/17 was negative Prophylaxis - Lovenox 40mg SC daily - GI - not indicated Patient is stable for discharge home per Heme/onc. Patient is to follow up with her PCP and heme/onc doctors within one week fo discharge. She is to resume all of her home medications. She is to return to the emergency room if symptoms return. All instructions explained to the patient and she agrees. Patient stated she does not need refills of her medications. All managements and orders per Dr. Louis. <Louis,Jayeshkuma S - Last Filed: 09/29/17 23:35> Objective - Vital Signs/Intake and Output Vital Signs (last 24 hours): Temp Pulse Resp BP Pulse Ox 98.3 F 81 20 106/62 97 09/29/17 07:00 09/29/17 07:00 09/29/17 07:00 09/29/17 07:00 09/29/17 07:00 - Labs Labs: 09/29/17 06:29 09/29/17 06:29 PT 12.9 SECONDS (9.7-12.2) H 09/26/17 08:12 INR 1.2 09/26/17 08:12 APTT 35 SECONDS (21-34) H 09/26/17 08:12 Attending/Attestation - Attestation I have personally seen and examined this patient.: Yes I have fully participated in the care of the patient.: Yes I have reviewed all pertinent clinical information, including history, physical exam and plan: Yes Notes (Text): 09/29/17 23:35 case seen and d.w staff and resident, concurred with finding and management..
[2017-09-29 08:18] LABS: ALB/GLOB RATIO 1.1 (1.0-2.1); ALBUMIN 3.3 g/dL (3.5-5.0); ALT/SGPT 159 U/L (9-52); AST/SGOT 91 U/L (14-36); BLOOD UREA NITROGEN 10 mg/dL (7-17); CALCIUM 8.2 mg/dl (8.6-10.4); GFR AFRICAN-AMERICAN > 60; GFR NON-AFRICAN AMERICAN > 60
[2017-09-29 09:05] VITALS: BP 106/62; PULSE 81; TEMP 98.3; O2SAT 97
--- NOTE | 2017-09-29 09:20 | CT ---
CT abdomen and pelvis History: Increasing liver enzymes. Comparison: CT scan dated 06/23/2017 Technique: Multiple contiguous axial images were performed through the abdomen and pelvis with the use of intravenous contrast. Subsequently, sagittal and coronal reformatted images were obtained. This CT exam was performed using one or more of the following dose reduction techniques: Automated exposure control, adjustment of the mA and/or kV according to patient size, and/or use of iterative reconstruction technique. Findings: Linear atelectasis and/or fibrosis at the lung bases. 1.2 centimeter focal area of ground-glass consolidation within the anterior inferior aspect of the right upper lobe. Additional patchy ground-glass opacities within the right middle lobe. Lobulated low-attenuation lesion measuring 1.7 centimeters demonstrating a Hounsfield unit attenuation of 43 at the dome of the liver, indeterminate. Correlation with multiphasic CT scan or MR may be helpful if clinically indicated. Mild intrahepatic biliary ductal dilatation. Increased attenuation throughout the liver. This is of uncertain clinical etiology. This may be related to sickle cell disease. Clinical correlation. Cholecystectomy. Pancreas is preserved. Prior splenectomy. Adrenal glands are preserved. Pelvic right kidney. Mild fullness of right renal collecting system. Mild fecal retention in the colon consistent with constipation. No findings to suggest acute appendicitis. Appendix not well visualized. If there is concern for acute appendicitis, consider further evaluation with a contrast-enhanced. Urinary bladder is grossly preserved. 2.7 centimeter left ovarian cyst and/or follicle. Probable tubal ligation clip on the left. Rounded 1.1 centimeters sclerotic foci in the right iliac bone which may represent a bone island. Milder patchy areas of increased sclerosis within the left iliac bone, nonspecific. Probable injection site in the ventral pelvic subcutaneous fat. Impression: 1. Mild fecal retention in the colon consistent with constipation. 2. 1.2 centimeter focal area of ground-glass consolidation within the anterior inferior aspect of the right upper lobe of the lung. Additional patchy ground-glass opacities within the right middle lobe. 3. Lobulated low-attenuation lesion measuring 1.7 centimeters demonstrating a Hounsfield unit attenuation of 43 at the dome of the liver, indeterminate. Correlation with multiphasic CT scan or MR may be helpful if clinically indicated. 4. Mild intrahepatic biliary ductal dilatation. 5. Increased attenuation throughout the liver. This is of uncertain clinical etiology. This may be related to sickle cell disease. Clinical correlation. 6. Pelvic right kidney. Mild fullness of right renal collecting system. 7. No findings to suggest acute appendicitis. Appendix not well visualized. If there is concern for acute appendicitis, consider further evaluation with a contrast-enhanced. 8. Additional findings as above. These findings were preliminarily reported at 9:50 p.m. on 09/28/[address] Shaq Batse virtual radiologic.
[2017-09-29] MEDS: Pantoprazole 40 mg EC Tab PO SCH (10:59)
[2017-09-29] MEDS: Sodium Chloride 0.9% 1,000 ML IV SCH (11:00)
[2017-09-29] MEDS: Enoxaparin 40 mg Syringe SC SCH (11:00)
--- NOTE | 2017-09-29 23:36 | CP.PCM.DIS ---
Provider - Provider Date of Admission: 09/28/17 16:04 Attending physician: Shara Louis MD Time Spent in preparation of Discharge (in minutes): 31 Diagnosis - Discharge Diagnosis (1) Abdominal pain Status: Acute (2) Abdominal pain Status: Acute (3) Abnormal LFTs Status: Acute (4) Admission for fitting of port-a-cath Status: Acute (5) Anemia Status: Acute (6) Anemia Status: Acute (7) Cannabis use disorder, mild, abuse Status: Acute (8) Chronic abdominal pain Status: Acute (9) Chronic pain Status: Acute (10) Chronic pain disorder Status: Acute (11) Contusion of back Status: Acute (12) Contusion of hip, right Status: Acute (13) Dehydration Status: Acute (14) Drug-seeking behavior Status: Acute (15) Dysfunctional uterine bleeding Status: Acute (16) Elevated LFTs Status: Acute (17) Generalized pain Status: Acute (18) Headache Status: Acute (19) Hordeolum externum (stye) Status: Acute (20) Iron overload due to repeated red blood cell transfusions Status: Acute (21) Leukocytosis Status: Acute (22) Liver lesion Status: Acute (23) Opioid abuse Status: Acute (24) Pain Status: Acute (25) Pain Status: Acute (26) Pain disorder Status: Acute (27) Pneumonia Status: Acute (28) Prophylactic measure Status: Acute (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 (30) Sickle cell anemia Status: Acute (31) Sickle cell anemia with pain Status: Acute (32) Sickle cell crisis Status: Acute (33) Sickle cell crisis Status: Acute (34) Sickle cell disease Status: Acute (35) Sickle cell pain crisis Status: Acute (36) Sickle cell pain crisis Status: Acute (37) Sickle cell trait Status: Acute (38) Sickle-cell disease with pain Status: Acute (39) 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 Status: Acute (40) Symptomatic anemia Status: Acute (41) Total body pain Status: Acute (42) UTI (urinary tract infection) Status: Acute (43) Uncontrolled pain Status: Acute (44) Viral upper respiratory infection Status: Acute (45) Weakness Status: Acute (46) Chronic pain Status: Chronic (47) Narcotic drug use Status: Chronic (48) Sickle cell anemia Status: Chronic (49) Splenectomy Status: Chronic (50) Transaminitis Status: Chronic (51) Drug abuse and dependence Status: Suspected (52) Drug-seeking behavior Status: Suspected Hospital Course - Lab Results Lab Results: Most Recent Lab Values WBC 11.8 K/uL (4.8-10.8) H 09/29/17 06:29 RBC 2.09 Mil/uL (3.80-5.20) L 09/29/17 06:29 Hgb 6.9 g/dL (11.0-16.0) L 09/29/17 06:29 Hct 20.3 % (34.0-47.0) L 09/29/17 06:29 MCV 97.0 fL (81.0-99.0) 09/29/17 06:29 MCH 32.9 pg (27.0-31.0) H 09/29/17 06:29 MCHC 33.9 g/dL (33.0-37.0) 09/29/17 06:29 RDW 25.8 % (11.5-14.5) H 09/29/17 06:29 Plt Count 227 K/uL (130-400) 09/29/17 06:29 MPV 7.7 fL (7.2-11.7) 09/29/17 06:29 Neut % (Auto) 44.8 % (50.0-75.0) L 09/29/17 06:29 Lymph % (Auto) 42.4 % (20.0-40.0) H 09/29/17 06:29 [place] % (Auto) 8.6 % (0.0-10.0) 09/29/17 06:29 Eos % (Auto) 3.3 % (0.0-4.0) 09/29/17 06:29 Baso % (Auto) 0.9 % (0.0-2.0) 09/29/17 06:29 Neut # (Auto) 5.3 K/uL (1.8-7.0) 09/29/17 06:29 Lymph # (Auto) 5.0 K/uL (1.0-4.3) H 09/29/17 06:29 [place] # (Auto) 1.0 K/uL (0.0-0.8) H 09/29/17 06:29 Eos # (Auto) 0.4 K/uL (0.0-0.7) 09/29/17 06:29 Baso # (Auto) 0.1 K/uL (0.0-0.2) 09/29/17 06:29 Retic Count 12.3 % (0.5-1.5) H 09/29/17 06:29 PT 12.9 SECONDS (9.7-12.2) H 09/26/17 08:12 INR 1.2 09/26/17 08:12 APTT 35 SECONDS (21-34) H 09/26/17 08:12 Sodium 138 mmol/L (132-148) 09/29/17 06:29 Potassium 4.2 mmol/L (3.6-5.2) 09/29/17 06:29 Chloride 104 mmol/L (98-107) 09/29/17 06:29 Carbon Dioxide 25 mmol/L (22-30) 09/29/17 06:29 Anion Gap 13 (10-20) 09/29/17 06:29 BUN 10 mg/dL (7-17) 09/29/17 06:29 Creatinine 0.5 mg/dL (0.7-1.2) L 09/29/17 06:29 Est GFR ( Amer) > 60 09/29/17 06:29 Est GFR (Non-Af Amer) > 60 09/29/17 06:29 Random Glucose 86 mg/dL (65-105) 09/29/17 06:29 Calcium 8.2 mg/dl (8.6-10.4) L 09/29/17 06:29 Total Bilirubin 2.1 mg/dL (0.2-1.3) H 09/29/17 06:29 AST 91 U/L (14-36) H 09/29/17 06:29 ALT 159 U/L (9-52) H 09/29/17 06:29 Alkaline Phosphatase 141 U/L (38-126) H 09/29/17 06:29 Total Protein 6.2 g/dL (6.3-8.3) L 09/29/17 06:29 Albumin 3.3 g/dL (3.5-5.0) L 09/29/17 06:29 Globulin 2.9 gm/dL (2.2-3.9) 09/29/17 06:29 Albumin/Globulin Ratio 1.1 (1.0-2.1) 09/29/17 06:29 Urine Color Yellow (YELLOW) 09/26/17 08:22 Urine Clarity Clear (Clear) 09/26/17 08:22 Urine pH 5.0 (5.0-8.0) 09/26/17 08:22 Ur Specific Lincoln 1.011 (1.003-1.030) 09/26/17 08:22 Urine Protein Negative mg/dL (NEGATIVE) 09/26/17 08:22 Urine Glucose (UA) Normal mg/dL (Normal) 09/26/17 08:22 Urine Ketones Negative mg/dL (NEGATIVE) 09/26/17 08:22 Urine Blood Negative (NEGATIVE) 09/26/17 08:22 Urine Nitrate Negative (NEGATIVE) 09/26/17 08:22 Urine Bilirubin Negative (NEGATIVE) 09/26/17 08:22 Urine Urobilinogen Normal mg/dL (0.2-1.0) 09/26/17 08:22 Ur Leukocyte Esterase Neg Joanne/uL (Negative) 09/26/17 08:22 Urine WBC (Auto) 1 /hpf (0-5) 09/26/17 08:22 Urine RBC (Auto) < 1 /hpf (0-3) 09/26/17 08:22 Ur Squamous Epith Cells < 1 /hpf (0-5) 09/26/17 08:22 Urine HCG, Qual Negative (NEGATIVE) 09/26/17 08:22 Blood Type A POSITIVE 09/26/17 08:12 Antibody Screen Negative 09/26/17 08:12 - Hospital Course Hospital Course: Sickle Cell pain crisis - On admission, Hgb was 7.9 and Retic count was 11.6. Hgb this am is 6.8 - Will check type and cross and retic count today - Continue pain management with morphine 6 mg IVP q3. Benadryl 25 mg IVP q3 prn. Will consider decreasing benadryl dosage - Heme/onc, Dr. Drew is consulted - no need for transfusion or further treatment - Continue IV hydration, NS at 75 cc/hour - Folic Acid 1mg PO daily - Hydroxyurea 500mg PO BID Transaminitis - Continue IV hydration - Recent hepatitis panel in 08/15/17 was negative Prophylaxis - Lovenox 40mg SC daily - GI - not indicated Patient is stable for discharge home per Heme/onc. Patient is to follow up with her PCP and heme/onc doctors within one week fo discharge. She is to resume all of her home medications. She is to return to the emergency room if symptoms return. All instructions explained to the patient and she agrees. Patient stated she does not need refills of her medications. Discharge Exam - Head Exam Head Exam: ATRAUMATIC, NORMAL INSPECTION Discharge Plan - Follow Up Plan Condition: FAIR Disposition: HOME/ ROUTINE Instructions: Weakness (ED), Acute Abdominal Pain (DC), Acute Abdominal Pain ( GEN) Additional Instructions: Patient is stable for discharge home per Heme/onc. Patient is to follow up with her PCP and heme/onc doctors within one week fo discharge. She is to resume all of her home medications. She is to return to the emergency room if symptoms return. All instructions explained to the patient and she agrees. Referrals: Giovanna Drew MD [Staff Provider] - Enzo Louis MD [Staff Provider] -
== END 2017-09-29 14:41 | disposition home or self-care (01) | DRG 395 ==
LOC: C.ER 07:29 → C.9E 10:39 → C.3T 11:29 → OBSVTOIN 09-28 16:04
PROVIDERS: ADMIT Internal Medicine Nephrology; ATTEND Internal Medicine Nephrology
DX: D57.00 Hb-SS disease with crisis, unspecified (principal); R74.0 Nonspecific elevation of levels of transaminase and lactic acid dehydrogenase [LDH]

== ENCOUNTER 2017-11-02 11:43 | Inpatient (IN) | payer MEDICAID ==
[2017-11-02 11:44] VITALS: BMI 22.6
[2017-11-02 14:18] LABS: BASO # 0.1 K/uL (0.0-0.2); BASO % 0.7 % (0.0-2.0); EOS # 0.1 K/uL (0.0-0.7); EOS % 0.7 % (0.0-4.0); HEMOGLOBIN 7.8 g/dL (11.0-16.0); LYMPH # 5.3 K/uL (1.0-4.3); LYMPH % 36.1 % (20.0-40.0); MEAN CORPUSCULAR HEMOGLOBIN 34.6 pg (27.0-31.0); MEAN CORPUSCULAR HGB CONC 34.8 g/dL (33.0-37.0); MEAN PLATELET VOLUME 7.9 fL (7.2-11.7); MONO # 1.3 K/uL (0.0-0.8); MONO % 8.7 % (0.0-10.0); NEUT # 7.9 K/uL (1.8-7.0); NEUT % 53.8 % (50.0-75.0); NRBC % 0.9 % (0.0-2.0); RBC 2.26 Mil/uL (3.80-5.20); RED CELL DISTRIBUTION WIDTH 26.2 % (11.5-14.5); WHITE BLOOD COUNT 14.7 K/uL (4.8-10.8)
[2017-11-02 14:21] LABS: MEAN CELL VOLUME 99.4 fL (81.0-99.0)
[2017-11-02 14:22] LABS: HCG,QUALITATIVE URINE NEGATIVE (NEGATIVE)
[2017-11-02 14:24] LABS: INR 1.3; PROTHROMBIN TIME 14.1 SECONDS (9.7-12.2)
--- NOTE | 2017-11-02 14:25 | C.PDOC ---
History Of Present Illness 32yo female with history of sickle cell crisis, presents to ED with complaints of diffuse body pains. Patient states she called her PMD Dr. Ariel Louis regarding her symptoms and was instructed to come to the ER for further evaluation. Patient states she was in [place] for the past 4 days and forgot to take her medications; of note, patient is on dilaudid 4mg 3x per day. She denies any other medical complaints. PMD: Dr. Ariel Louis Time Seen by Provider: 11/02/17 13:30 Chief Complaint (Nursing): Pain, Chronic History Per: Patient Onset/Duration Of Symptoms: Persistent Past Medical History Reviewed: Historical Data, Nursing Documentation, Vital Signs Vital Signs: Last Vital Signs Temp 98.5 F 11/02/17 18:30 Pulse 88 11/02/17 18:30 Resp 20 11/02/17 18:30 BP 122/80 11/02/17 18:30 Pulse Ox 100 11/02/17 18:34 - Medical History PMH: Anemia, Bronchitis, Gall Bladder Disease (GB stone removed), Pneumonia, Sickle Cell Disease Denies: Chronic Kidney Disease Surgical History: Cholecystectomy - [facility] Procedures INFLUENZA VACCINATION (03/16/12) INJECT/INFUSE ELECTROLYT (09/07/13) INJECT/INFUSE NEC (01/25/14) INSERT VAD RESERVOIR IN CHEST SUBCU/FASCIA, OPEN (05/31/17) INSERTION OF INFUSION DEV INTO SUP VENA CAVA, PERC APPROACH (01/25/17) NEBULIZER THERAPY (12/02/13) PACKED CELL TRANSFUSION (02/12/15) REMOVAL OF VAD FROM TRUNK SUBCU/FASCIA, OPEN APPROACH (04/15/16) TRANSFUSE NONAUT RED BLOOD CELLS IN PERIPH VEIN, PERC (09/14/17) VACCINATION NEC (08/22/13) Family History: States: No Known Family Hx - Social History Hx Tobacco Use: No Hx Alcohol Use: No Hx Substance Use: Yes - Immunization History Hx Tetanus Toxoid Vaccination: Yes Hx Influenza Vaccination: Yes (2016) Hx Pneumococcal Vaccination: Yes (2014) Review Of Systems Except As Marked, All Systems Reviewed And Found Negative. Constitutional: Positive for: Other (diffuse bodyaches). Negative for: Fever, Chills Cardiovascular: Negative for: Chest Pain Respiratory: Negative for: Shortness of Breath Gastrointestinal: Negative for: Abdominal Pain Physical Exam - Physical Exam Appears: Non-toxic, Other (easily irritable) Skin: Normal Color Head: Atraumatic, Normacephalic Eye(s): bilateral: Normal Inspection Neck: Normal ROM, Supple Chest: Symmetrical, Other (keyana cath right upper chest) Cardiovascular: Rhythm Regular Respiratory: Normal Breath Sounds Extremity: Normal ROM Neurological/Psych: Oriented x3 ED Course And Treatment - Laboratory Results Result Diagrams: 11/02/17 14:12 11/02/17 14:12 Lab Interpretation: Abnormal (retic 16.5 H, leukocytosis and anemia are baseline. no renal insufficiency) ECG: Interpreted By Me, Viewed By Me ECG Rhythm: Sinus Rhythm Rate From EC O2 Sat by Pulse Oximetry: 100 (RA) Pulse Ox Interpretation: Normal - Radiology CXR: Interpreted by Me CXR Interpretation: Yes: No Acute Disease Progress Note: IVF, O2 x NC. NO narcotics as pt NAD and hr 70's. consider narcotics withdrawal as pt irritable and "lost, misplaced, forgot" her narocotics prescribed by Heme/Onc, yet U-tox + narcotics/THC Reevaluation Time: 15:11 Reassessment Condition: Improved - Physician Consult Information Outcome Of Conversation: 1500: d/w boris Lozano to consult. 1550: d/w Dr. Tejal Louis- PMD- ok to admit. Medical Decision Making Medical Decision Making: Impression: Chronic pain Plan: -- Labs -- EKG -- UDS -- CXR [place] [employer] reviewed including [place], [place] and [place] between October 2016 and September 2017, patient does not have any prescriptions. Patient states her prior PMD Dr. Raymond and current PMD Dr. Ariel Louis have refused to prescribe her narcotics and patient was referred to chronic pain management for follow up. Patient is currently being prescribed dilaudid by Dr. Drew, her associate product integrity engineer. Time: [address] Drew and she gave the patient a prescription for PO Dilaudid in September so the patient can better control her pain as an outpatient. The reason the patient has no prescriptions on [place] [employer] for over a year as she has been circulating inpatient through various local hospitals and essentially always inpatient. Dr. Drew is aware of pateint's history of substance abuse, drug and bed seeking behavior. Patient has violated her agreement with Dr. Drew regarding new sickle cell crisis episode, or loss/misplacement/forgetting her pain medications. Patient is known to consistently report she has lost or misplaced her pain medications. She has no pain management involved and has not followed up with previous referrals. Dr. Drew understand irregular prescribing, pt's loosing/missing/ forgetting her prescriptions and seemingly in withdrawal despite not taking Dilaudid as prescribed (though u-tox+) is concerning for drug diversion and is reportable to [facility]. Disposition Doctor Will See Patient In The: Hospital Counseled Patient/Family Regarding: Studies Performed, Diagnosis - Disposition Disposition: HOSPITALIZED Disposition Time: 15:10 Condition: GOOD - Clinical Impression Clinical Impression: Opioid abuse, Chronic pain, Drug-seeking behavior, Sickle cell disease - Scribe Statement The provider has reviewed the documentation as recorded by the Scribe (Nano Emmanuel) Provider Attestation: All medical record entries made by the Scribe were at my direction and personally dictated by me. I have reviewed the chart and agree that the record accurately reflects my personal performance of the history, physical exam, medical decision making, and the department course for this patient. I have also personally directed, reviewed, and agree with the discharge instructions and disposition.
[2017-11-02 14:27] LABS: SQUAMOUS EPITHIAL 1 /hpf (0-5); URINE BILIRUBIN NEGATIVE (NEGATIVE); URINE BLOOD NEGATIVE (NEGATIVE); URINE CLARITY Clear (Clear); URINE COLOR Yellow (YELLOW); URINE GLUCOSE (UA) NORMAL (Normal); URINE LEUKOCYTE ESTERASE NEG Leu/uL (Negative); URINE PROTEIN NEGATIVE (NEGATIVE); URINE UROBILINOGEN NORMAL mg/dL (0.2-1.0)
[2017-11-02 14:36] LABS: ALB/GLOB RATIO 1.3 (1.0-2.1); ALBUMIN 4.1 g/dL (3.5-5.0); ALT/SGPT 147 U/L (9-52); AST/SGOT 87 U/L (14-36); BLOOD UREA NITROGEN 11 mg/dL (7-17); CALCIUM 9.6 mg/dl (8.6-10.4); GFR AFRICAN-AMERICAN > 60; GFR NON-AFRICAN AMERICAN > 60
--- NOTE | 2017-11-02 14:42 | RAD ---
PROCEDURE: CHEST RADIOGRAPH, 1 VIEW HISTORY: Sickle Cell COMPARISON: Chest radiograph dated 08/22/2017 FINDINGS: LUNGS: Clear. PLEURA: No pneumothorax or pleural fluid seen. CARDIOVASCULAR: Normal. OSSEOUS STRUCTURES: Unchanged. VISUALIZED UPPER ABDOMEN: Left upper quadrant surgical clips, unchanged. OTHER FINDINGS: Right internal jugular access chest port, unchanged. IMPRESSION: No active disease.
[2017-11-02 14:56] LABS: BARBITURATES, UR NEGATIVE (NEGATIVE); BENZODIAZEPINES, UR NEGATIVE (NEGATIVE); PHENCYCLIDINE, UR NEGATIVE (NEGATIVE)
[2017-11-02 14:58] LABS: OPIATES, UR POSITIVE (NEGATIVE)
[2017-11-02] MEDS: DiphenhydrAMINE 50 mg/ml Inj IVP PRN (21:24)
[2017-11-02] MEDS: Morphine 4 MG/ML VIAL IVP PRN (21:24)
[2017-11-03] MEDS: DiphenhydrAMINE 50 mg/ml Inj IVP PRN ×8 (00:21→21:25)
[2017-11-03] MEDS: Morphine 4 MG/ML VIAL IVP PRN ×8 (00:21→21:25)
--- NOTE | 2017-11-03 08:20 | CP.PCM.PN ---
Subjective - Date & Time of Evaluation Date of Evaluation: 11/03/17 Time of Evaluation: 08:21 - Subjective Subjective: PGY2 progress note for Dr. Louis 32 year old female with past medical history of sickle cell anemia is admitted to hospital for sickle cell pain crisis. Currently, pt complains of diffuse body aches which are still present but decreased in nature compared to admission. Patient asking to shower. Denies having any CP, SOB, abd pain, N/V/D/ C, F/c. She is tolerating PO intake and having regular bowel movement. Objective - Vital Signs/Intake and Output Vital Signs (last 24 hours): Temp Pulse Resp BP Pulse Ox 98.3 F 77 20 110/74 97 11/03/17 08:02 11/03/17 08:02 11/03/17 08:02 11/03/17 08:02 11/03/17 08:02 Intake and Output: 11/03/17 11/03/17 06:59 18:59 Intake Total 400 Balance 400 - Medications Medications: Current Medications Diphenhydramine HCl (Benadryl) 25 mg IVP Q3H PRN PRN Reason: Itching / Pruritus Last Admin: 11/03/17 06:19 Dose: 25 mg Enoxaparin Sodium (Lovenox) 40 mg SC DAILY COUNTS INCLUDE 234 BEDS AT THE [facility] Morphine Sulfate (Morphine) 4 mg IVP Q3 PRN PRN Reason: Pain, severe (8-10) Last Admin: 11/03/17 06:18 Dose: 4 mg Pantoprazole Sodium (Protonix Inj) 40 mg IVP DAILY [facility] - Labs Labs: 11/02/17 14:12 11/02/17 14:12 PT 14.1 SECONDS (9.7-12.2) H 11/02/17 14:12 INR 1.3 11/02/17 14:12 APTT 37 SECONDS (21-34) H 11/02/17 14:12 - Additional Findings Additional findings: - Constitutional Appears: Non-toxic, No Acute Distress - Head Exam Head Exam: ATRAUMATIC, NORMAL INSPECTION - Eye Exam Eye Exam: EOMI Pupil Exam: NORMAL ACCOMODATION - ENT Exam ENT Exam: Mucous Membranes Moist - Respiratory Exam Respiratory Exam: Clear to Ausculation Bilateral, NORMAL BREATHING PATTERN. absent: Respiratory Distress - Cardiovascular Exam Cardiovascular Exam: REGULAR RHYTHM, +S1, +S2 - GI/Abdominal Exam GI & Abdominal Exam: Soft, Normal Bowel Sounds. absent: Distended, Firm, Guarding, Tenderness - Extremities Exam Extremities Exam: Normal Inspection - Back Exam Back Exam: NORMAL INSPECTION. absent: CVA tenderness (L), CVA tenderness (R), paraspinal tenderness - Neurological Exam Neurological Exam: Alert, Awake, CN II-XII Intact, Normal Gait, Oriented x3 Neuro motor strength exam: Left Upper Extremity: 5, Right Upper Extremity: 5, Left Lower Extremity: 5, Right Lower Extremity: 5 - Psychiatric Exam Psychiatric exam: Anxious - Skin Skin Exam: Dry, Intact, Normal Color, Warm Assessment and Plan - Assessment and Plan (Free Text) Plan: Sickle Cell pain crisis - Admit to med surg - On admission, Hgb was 7.8 and Retic count was 16.5 on admission - Continue pain management with morphine 4 mg IVP q3. Benadryl 25 mg IVP q3 prn. - Heme/onc, Dr. Portillo is consulted - Folic Acid 1mg PO daily - Hydroxyurea 500mg PO Daily Troponin negative x 1 Transaminitis/Elevated T bili AST/ALT 87/147, T bili 2.7 - Continue IV hydration @ 80 cc/hr - Recent hepatitis panel in 08/15/17 was negative Cannabinoid Use Positive UDS Will ask pt if medicinal or recreational Prophylaxis - Lovenox 40mg SC daily - SCD - GI not indicated Jose Serrano PGY-[address] Louis
[2017-11-03] MEDS: Enoxaparin 40 mg Syringe SC SCH (09:24)
[2017-11-03] MEDS: Sodium Chloride 0.9% 1,000 ML IV SCH ×2 (11:00→21:30)
--- NOTE | 2017-11-03 12:28 | CARD ---
APPROVED REPORT EKG Measurement Heart [id number] <Conclusion> Normal sinus rhythm Normal ECG
--- NOTE | 2017-11-03 14:50 | CP.PCM.HP ---
Past Patient History - Infectious Disease Hx of Infectious Diseases: None - Tetanus Immunizations Tetanus Immunization: Up to Date - Past Medical History & Family History Past Medical History?: Yes - Past Social History Smoking Status: Never Smoked - PULMONARY Hx Bronchitis: Yes Hx Pneumonia: Yes - HEENT Hx HEENT Problems: No - RENAL Hx Chronic Kidney Disease: No - HEMATOLOGICAL/ONCOLOGICAL Hx Anemia: Yes Hx Sickle Cell Disease: Yes - INTEGUMENTARY Hx Dermatological Problems: No - MUSCULOSKELETAL/RHEUMATOLOGICAL Hx Falls: No - GASTROINTESTINAL Hx Gall Bladder Disease: Yes (GB stone removed) - PSYCHIATRIC Hx Substance Use: Yes - SURGICAL HISTORY Hx Cholecystectomy: Yes - ANESTHESIA Hx Anesthesia: Yes Hx Anesthesia Reactions: No Hx Malignant Hyperthermia: No Meds Allergies/Adverse Reactions: Allergies Allergy/AdvReac Type Severity Reaction Status Date / Time FISH Allergy Severe RASH Verified 11/02/17 12:50 oxycodone Allergy Severe RASH Verified 11/02/17 12:50 tramadol Allergy Severe RASH Verified 11/02/17 12:50 ketorolac Allergy Intermediate RASH Verified 11/02/17 12:50 Physical Exam - Constitutional Appears: Well - Head Exam Head Exam: ATRAUMATIC, NORMAL INSPECTION, NORMOCEPHALIC - Eye Exam Eye Exam: EOMI, Normal appearance, PERRL Pupil Exam: NORMAL ACCOMODATION, PERRL - ENT Exam ENT Exam: Mucous Membranes Moist, Normal Exam - Neck Exam Neck exam: Positive for: Normal Inspection - Respiratory Exam Respiratory Exam: Decreased Breath Sounds - Cardiovascular Exam Cardiovascular Exam: REGULAR RHYTHM, +S1, +S2 - GI/Abdominal Exam GI & Abdominal Exam: Diminished Bowel Sounds, Soft - Rectal Exam Rectal Exam: Deferred Results - Vital Signs Recent Vital Signs: Last Vital Signs Temp 98.3 F 11/03/17 08:02 Pulse 77 11/03/17 08:02 Resp 20 11/03/17 08:02 BP 110/74 11/03/17 08:02 Pulse Ox 97 11/03/17 08:02 - Labs Result Diagrams: 11/02/17 14:12 11/02/17 14:12 Labs: Laboratory Results - last 24 hr 11/02/17 14:12 Urine Opiates Screen Positive H Urine Methadone Screen Negative Ur Barbiturates Screen Negative Ur Phencyclidine Scrn Negative Ur Amphetamines Screen Negative U Benzodiazepines Scrn Negative U Oth Cocaine Metabols Negative U Cannabinoids Screen Positive H
--- NOTE | 2017-11-03 15:40 | CP.PCM.CON ---
History of Present Illness - History of Present Illness History of Present Illness: 32 year old female with a history of sickle cell anemia admitted with sickle cell pain crisis. The patient reports to diffuse bone pain which she attributes to being exacerbated by the change in weather. Her pain was not controlled by her oral pain regimen and came to the hospital. In the ER she continued to have pain despite pain medication and was admitted for further pain control. She denies fevers, chills, headache, shortness of breath, and chest pain. Her pain is diffuse in nature and consistent with prior sickle cell pain crisis. Past medical history: Sickle cell anemia. Past surgical history: Cholecystectomy, splenectomy, portacatheter placement. Family history: Father and sister has SS disease, mother and brother have sickle cell trait. Social history: Denies tobacco, alcohol, and illicit drug use. Allergies: Oxycodone, ketorolac. Review of systems: All remaining review of systems including HEENT, cardiovascular, respiratory, gastrointestinal, genitourinary, musculoskeletal, dermatologic, and neurologic are negative unless mentioned in the HPI. Past Patient History - Infectious Disease Hx of Infectious Diseases: None - Tetanus Immunizations Tetanus Immunization: Up to Date - Past Medical History & Family History Past Medical History?: Yes - Past Social History Smoking Status: Never Smoked - PULMONARY Hx Bronchitis: Yes Hx Pneumonia: Yes - HEENT Hx HEENT Problems: No - RENAL Hx Chronic Kidney Disease: No - HEMATOLOGICAL/ONCOLOGICAL Hx Anemia: Yes Hx Sickle Cell Disease: Yes - INTEGUMENTARY Hx Dermatological Problems: No - MUSCULOSKELETAL/RHEUMATOLOGICAL Hx Falls: No - GASTROINTESTINAL Hx Gall Bladder Disease: Yes (GB stone removed) - PSYCHIATRIC Hx Substance Use: Yes - SURGICAL HISTORY Hx Cholecystectomy: Yes - ANESTHESIA Hx Anesthesia: Yes Hx Anesthesia Reactions: No Hx Malignant Hyperthermia: No Meds Allergies/Adverse Reactions: Allergies Allergy/AdvReac Type Severity Reaction Status Date / Time FISH Allergy Severe RASH Verified 11/02/17 12:50 oxycodone Allergy Severe RASH Verified 11/02/17 12:50 tramadol Allergy Severe RASH Verified 11/02/17 12:50 ketorolac Allergy Intermediate RASH Verified 11/02/17 12:50 - Medications Medications: Current Medications Diphenhydramine HCl (Benadryl) 25 mg IVP Q3H PRN PRN Reason: Itching / Pruritus Last Admin: 11/03/17 15:28 Dose: 25 mg Enoxaparin Sodium (Lovenox) 40 mg SC DAILY [facility] Last Admin: 11/03/17 09:24 Dose: 40 mg Folic Acid (Folic Acid) 1 mg PO DAILY [facility] Last Admin: 11/03/17 11:00 Dose: 1 mg Hydroxyurea (Hydrea) 500 mg PO DAILY [facility] Last Admin: 11/03/17 11:40 Dose: 500 mg Sodium Chloride (Sodium Chloride 0.9%) 1,000 mls @ 80 mls/hr IV .[id number] [facility] Last Admin: 11/03/17 11:00 Dose: 80 mls/hr Morphine Sulfate (Morphine) 4 mg IVP Q3 PRN PRN Reason: Pain, severe (8-10) Last Admin: 11/03/17 15:25 Dose: 4 mg Physical Exam - Head Exam Head Exam: ATRAUMATIC - Eye Exam Eye Exam: Normal appearance - ENT Exam ENT Exam: Mucous Membranes Dry - Neck Exam Neck exam: Positive for: Normal Inspection - Respiratory Exam Respiratory Exam: NORMAL BREATHING PATTERN - Cardiovascular Exam Cardiovascular Exam: +S1, +S2 - GI/Abdominal Exam GI & Abdominal Exam: Normal Bowel Sounds Results - Vital Signs Recent Vital Signs: Last Vital Signs Temp 98.3 F 11/03/17 08:02 Pulse 77 11/03/17 08:02 Resp 20 11/03/17 08:02 BP 110/74 11/03/17 08:02 Pulse Ox 97 11/03/17 08:02 - Labs Result Diagrams: 11/02/17 14:12 11/02/17 14:12 Assessment & Plan (1) Sickle cell pain crisis Assessment and Plan: IV fluids, pain meds, folic acid, 02 via NC no transfusion indication Status: Acute (2) Iron overload due to repeated red blood cell transfusions Assessment and Plan: minimize transfusion support outpatient chelation Status: Acute (3) Sickle cell anemia Assessment and Plan: folic acid and hydrea Thank you for this interesting consult. Status: Chronic
[2017-11-04] MEDS: DiphenhydrAMINE 50 mg/ml Inj IVP PRN ×8 (00:34→22:45)
[2017-11-04] MEDS: Morphine 4 MG/ML VIAL IVP PRN ×8 (00:35→22:46)
--- NOTE | 2017-11-04 06:25 | CP.PCM.PN ---
Subjective - Date & Time of Evaluation Date of Evaluation: 11/04/17 Time of Evaluation: 06:22 - Subjective Subjective: PGY2 progress note for Dr. Louis Pt seen and examined at bedside. Nursing reports no acute events overnight. Patient reports slight improvement in pain but "still feels aches all over her body - worst in legs." Patient reports she has no appetite, and is asking to be switched to regular diet. Denies having any CP, SOB, abd pain, N/V/D/C, F/c. Objective - Vital Signs/Intake and Output Vital Signs (last 24 hours): Temp Pulse Resp BP Pulse Ox 98.3 F 78 19 110/51 L 97 11/03/17 23:54 11/03/17 23:54 11/03/17 23:54 11/03/17 23:54 11/03/17 23:54 Intake and Output: 11/03/17 11/04/17 18:59 06:59 Intake Total 820 940 Balance 820 940 - Medications Medications: Current Medications Diphenhydramine HCl (Benadryl) 25 mg IVP Q3H PRN PRN Reason: Itching / Pruritus Last Admin: 11/04/17 03:43 Dose: 25 mg Enoxaparin Sodium (Lovenox) 40 mg SC DAILY [facility] Last Admin: 11/03/17 09:24 Dose: 40 mg Folic Acid (Folic Acid) 1 mg PO DAILY [facility] Last Admin: 11/03/17 11:00 Dose: 1 mg Hydroxyurea (Hydrea) 500 mg PO DAILY [facility] Last Admin: 11/03/17 11:40 Dose: 500 mg Sodium Chloride (Sodium Chloride 0.9%) 1,000 mls @ 80 mls/hr IV .[id number] [facility] Last Admin: 11/03/17 21:30 Dose: 80 mls/hr Morphine Sulfate (Morphine) 4 mg IVP Q3 PRN PRN Reason: Pain, severe (8-10) Last Admin: 11/04/17 03:40 Dose: 4 mg - Labs Labs: 11/02/17 14:12 11/02/17 14:12 PT 14.1 SECONDS (9.7-12.2) H 11/02/17 14:12 INR 1.3 11/02/17 14:12 APTT 37 SECONDS (21-34) H 11/02/17 14:12 - Additional Findings Additional findings: - Constitutional Appears: Non-toxic, No Acute Distress - Head Exam Head Exam: ATRAUMATIC, NORMAL INSPECTION - Eye Exam Eye Exam: EOMI Pupil Exam: NORMAL ACCOMODATION - ENT Exam ENT Exam: Mucous Membranes Moist - Respiratory Exam Respiratory Exam: Clear to Ausculation Bilateral, NORMAL BREATHING PATTERN. absent: Respiratory Distress - Cardiovascular Exam Cardiovascular Exam: REGULAR RHYTHM, +S1, +S2 - GI/Abdominal Exam GI & Abdominal Exam: Soft, Normal Bowel Sounds. absent: Distended, Firm, Guarding, Tenderness - Extremities Exam Extremities Exam: Normal Inspection - Back Exam Back Exam: NORMAL INSPECTION. absent: CVA tenderness (L), CVA tenderness (R), paraspinal tenderness - Neurological Exam Neurological Exam: Alert, Awake, CN II-XII Intact, Normal Gait, Oriented x3 Neuro motor strength exam: Left Upper Extremity: 5, Right Upper Extremity: 5, Left Lower Extremity: 5, Right Lower Extremity: 5 - Psychiatric Exam Psychiatric exam: Anxious - Skin Skin Exam: Dry, Intact, Normal Color, Warm Assessment and Plan - Assessment and Plan (Free Text) Plan: Sickle Cell pain crisis - Admit to med surg - On admission, Hgb was 7.8 and Retic count was 16.5 on admission - Continue pain management with morphine 4 mg IVP q3. Benadryl 25 mg IVP q3 prn. - Folic Acid 1mg PO daily - Hydroxyurea 500mg PO Daily Troponin negative x 1 Heme/onc, Dr. Portillo is consulted - no transfusion indication - outpatient chelation - continue folate/hydrea Transaminitis/Elevated T bili AST/ALT 65/115, T bili 2.4 - improved on hydration - Continue IV hydration @ 80 cc/hr - Recent hepatitis panel in 08/15/17 was negative Cannabinoid Use Positive UDS Will ask pt if medicinal or recreational Prophylaxis - Lovenox 40mg SC daily - SCD - GI not indicated - Regular diet Jose Serrano PGY-[address] Louis
[2017-11-04 07:28] LABS: BASO # 0.1 K/uL (0.0-0.2); BASO % 0.8 % (0.0-2.0); EOS # 0.4 K/uL (0.0-0.7); EOS % 2.8 % (0.0-4.0); HEMOGLOBIN 7.2 g/dL (11.0-16.0); LYMPH # 6.6 K/uL (1.0-4.3); LYMPH % 45.8 % (20.0-40.0); MEAN CELL VOLUME 98.8 fL (81.0-99.0); MEAN CORPUSCULAR HEMOGLOBIN 34.2 pg (27.0-31.0); MEAN CORPUSCULAR HGB CONC 34.7 g/dL (33.0-37.0); MEAN PLATELET VOLUME 8.4 fL (7.2-11.7); MONO # 1.3 K/uL (0.0-0.8); MONO % 9.1 % (0.0-10.0); NEUT # 5.9 K/uL (1.8-7.0); NEUT % 41.5 % (50.0-75.0); NRBC % 0.6 % (0.0-2.0); RBC 2.1 Mil/uL (3.80-5.20); RED CELL DISTRIBUTION WIDTH 23.9 % (11.5-14.5); WHITE BLOOD COUNT 14.3 K/uL (4.8-10.8)
[2017-11-04 07:52] LABS: ALB/GLOB RATIO 1.2 (1.0-2.1); ALBUMIN 3.7 g/dL (3.5-5.0); ALT/SGPT 115 U/L (9-52); AST/SGOT 65 U/L (14-36); BLOOD UREA NITROGEN 14 mg/dL (7-17); CALCIUM 9.1 mg/dl (8.6-10.4); GFR AFRICAN-AMERICAN > 60; GFR NON-AFRICAN AMERICAN > 60
[2017-11-04] MEDS: Enoxaparin 40 mg Syringe SC SCH (09:13)
[2017-11-04] MEDS: Sodium Chloride 0.9% 1,000 ML IV SCH ×2 (10:05→22:53)
[2017-11-04 12:05] VITALS: RESP 20
--- NOTE | 2017-11-04 16:08 | CP.PCM.PN ---
Subjective - Date & Time of Evaluation Date of Evaluation: 11/04/17 Time of Evaluation: 08:20 - Subjective Subjective: clinically same Objective - Vital Signs/Intake and Output Vital Signs (last 24 hours): Temp Pulse Resp BP Pulse Ox 98.3 F 89 20 101/66 97 11/04/17 08:00 11/04/17 08:00 11/04/17 08:00 11/04/17 08:00 11/04/17 08:00 Intake and Output: 11/04/17 11/04/17 06:59 18:59 Intake Total 940 Balance 940 - Medications Medications: Current Medications Diphenhydramine HCl (Benadryl) 25 mg IVP Q3H PRN PRN Reason: Itching / Pruritus Last Admin: 11/04/17 13:14 Dose: 25 mg Enoxaparin Sodium (Lovenox) 40 mg SC DAILY [facility] Last Admin: 11/04/17 09:13 Dose: Not Given Folic Acid (Folic Acid) 1 mg PO DAILY [facility] Last Admin: 11/04/17 09:12 Dose: 1 mg Hydroxyurea (Hydrea) 500 mg PO DAILY [facility] Last Admin: 11/04/17 09:12 Dose: 500 mg Sodium Chloride (Sodium Chloride 0.9%) 1,000 mls @ 80 mls/hr IV .[id number] [facility] Last Admin: 11/04/17 10:05 Dose: 80 mls/hr Morphine Sulfate (Morphine) 4 mg IVP Q3 PRN PRN Reason: Pain, severe (8-10) Last Admin: 11/04/17 13:14 Dose: 4 mg - Labs Labs: 11/04/17 07:22 11/04/17 07:22 PT 14.1 SECONDS (9.7-12.2) H 11/02/17 14:12 INR 1.3 11/02/17 14:12 APTT 37 SECONDS (21-34) H 11/02/17 14:12 - Constitutional Appears: Well - Head Exam Head Exam: ATRAUMATIC, NORMAL INSPECTION, NORMOCEPHALIC - Eye Exam Eye Exam: EOMI, Normal appearance, PERRL Pupil Exam: NORMAL ACCOMODATION, PERRL - ENT Exam ENT Exam: Mucous Membranes Moist, Normal Exam - Neck Exam Neck Exam: Full ROM, Normal Inspection. absent: Lymphadenopathy - Respiratory Exam Respiratory Exam: Decreased Breath Sounds - Cardiovascular Exam Cardiovascular Exam: REGULAR RHYTHM, +S1, +S2 - GI/Abdominal Exam GI & Abdominal Exam: Soft, Diminished Bowel Sounds - Rectal Exam Rectal Exam: Deferred
[2017-11-05] MEDS: DiphenhydrAMINE 50 mg/ml Inj IVP PRN ×7 (01:53→20:31)
[2017-11-05] MEDS: Morphine 4 MG/ML VIAL IVP PRN ×7 (01:53→20:33)
[2017-11-05 07:44] LABS: BASO # 0.1 K/uL (0.0-0.2); BASO % 0.7 % (0.0-2.0); EOS # 0.6 K/uL (0.0-0.7); EOS % 3.9 % (0.0-4.0); LYMPH # 6.7 K/uL (1.0-4.3); LYMPH % 46.9 % (20.0-40.0); MEAN CELL VOLUME 99.4 fL (81.0-99.0); MEAN CORPUSCULAR HEMOGLOBIN 34.8 pg (27.0-31.0); MEAN PLATELET VOLUME 8.6 fL (7.2-11.7); MONO # 1.2 K/uL (0.0-0.8); MONO % 8.7 % (0.0-10.0); NEUT # 5.7 K/uL (1.8-7.0); NEUT % 39.8 % (50.0-75.0); NRBC % 0.5 % (0.0-2.0); RBC 1.87 Mil/uL (3.80-5.20); RED CELL DISTRIBUTION WIDTH 23.8 % (11.5-14.5); WHITE BLOOD COUNT 14.3 K/uL (4.8-10.8)
[2017-11-05 07:46] LABS: ALB/GLOB RATIO 1.4 (1.0-2.1); ALBUMIN 3.9 g/dL (3.5-5.0); ALT/SGPT 99 U/L (9-52); AST/SGOT 69 U/L (14-36); BLOOD UREA NITROGEN 14 mg/dL (7-17); CALCIUM 8.7 mg/dl (8.6-10.4); GFR AFRICAN-AMERICAN > 60; GFR NON-AFRICAN AMERICAN > 60
[2017-11-05 07:52] LABS: HEMOGLOBIN 6.5 g/dL (11.0-16.0)
--- NOTE | 2017-11-05 07:54 | CP.PCM.PN ---
Subjective - Date & Time of Evaluation Date of Evaluation: 11/05/17 Time of Evaluation: 07:51 - Subjective Subjective: PGY2 progress note for Dr. Louis Pt seen and examined at bedside. Nursing reports no acute events overnight. Patient found lying comfortably in bed. Patient reports feeling lightheaded and dizzy this AM, but denies chest pain or SOB. Admits continued 10/10 pain without medication, improved on morphine to 4-5/10. Patient today reports she follows with Dr. Drew as outpatient. Objective - Vital Signs/Intake and Output Vital Signs (last 24 hours): Temp Pulse Resp BP Pulse Ox 98.5 F 90 20 102/69 96 11/05/17 07:46 11/05/17 07:46 11/05/17 07:46 11/05/17 07:46 11/05/17 07:46 Intake and Output: 11/05/17 11/05/17 06:59 18:59 Intake Total 940 Balance 940 - Medications Medications: Current Medications Diphenhydramine HCl (Benadryl) 25 mg IVP Q3H PRN PRN Reason: Itching / Pruritus Last Admin: 11/05/17 04:50 Dose: 25 mg Enoxaparin Sodium (Lovenox) 40 mg SC DAILY [facility] Last Admin: 11/04/17 09:13 Dose: Not Given Folic Acid (Folic Acid) 1 mg PO DAILY [facility] Last Admin: 11/04/17 09:12 Dose: 1 mg Hydroxyurea (Hydrea) 500 mg PO DAILY [facility] Last Admin: 11/04/17 09:12 Dose: 500 mg Sodium Chloride (Sodium Chloride 0.9%) 1,000 mls @ 80 mls/hr IV .[id number] [facility] Last Admin: 11/04/17 22:53 Dose: 80 mls/hr Morphine Sulfate (Morphine) 4 mg IVP Q3 PRN PRN Reason: Pain, severe (8-10) Last Admin: 11/05/17 04:50 Dose: 4 mg - Labs Labs: 11/04/17 07:22 11/05/17 07:23 PT 14.1 SECONDS (9.7-12.2) H 11/02/17 14:12 INR 1.3 11/02/17 14:12 APTT 37 SECONDS (21-34) H 11/02/17 14:12 - Additional Findings Additional findings: - Constitutional Appears: Non-toxic, No Acute Distress - Head Exam Head Exam: ATRAUMATIC, NORMAL INSPECTION - Eye Exam Eye Exam: EOMI Pupil Exam: NORMAL ACCOMODATION - ENT Exam ENT Exam: Mucous Membranes Moist - Respiratory Exam Respiratory Exam: Clear to Ausculation Bilateral, NORMAL BREATHING PATTERN. absent: Respiratory Distress - Cardiovascular Exam Cardiovascular Exam: REGULAR RHYTHM, +S1, +S2 - GI/Abdominal Exam GI & Abdominal Exam: Soft, Normal Bowel Sounds. absent: Distended, Firm, Guarding, Tenderness - Extremities Exam Extremities Exam: Normal Inspection - Back Exam Back Exam: NORMAL INSPECTION. absent: CVA tenderness (L), CVA tenderness (R), paraspinal tenderness - Neurological Exam Neurological Exam: Alert, Awake, CN II-XII Intact, Normal Gait, Oriented x3 Neuro motor strength exam: Left Upper Extremity: 5, Right Upper Extremity: 5, Left Lower Extremity: 5, Right Lower Extremity: 5 - Psychiatric Exam Psychiatric exam: Calm, No anxiety - Skin Skin Exam: Dry, Intact, Normal Color, Warm Assessment and Plan - Assessment and Plan (Free Text) Plan: Sickle Cell pain crisis Admit to med surg - On admission, Hgb was 7.8 and Retic count was 16.5 on admission - Hgb 6.5 today - Continue pain management with morphine 4 mg IVP q3. Benadryl 25 mg IVP q3 prn. - Folic Acid 1mg PO daily - Hydroxyurea 500mg PO Daily Troponin negative x 1 Heme/onc, Dr. Drew is consulted - will ask recommendation for transfusion, anticoagulation - f/u reccs Transaminitis/Elevated T bili (11/05/17) AST/ALT 69/99, T bili 2.1 - trending down on hydration - Continue IV hydration @ 80 cc/hr - Recent hepatitis panel in 08/15/17 was negative Cannabinoid Use Positive UDS Will ask pt if medicinal or recreational Prophylaxis - Lovenox 40mg SC daily currently on hold - SCD - GI not indicated - Regular diet Jose Serrano PGY-[address] Louis
[2017-11-05] MEDS: Sodium Chloride 0.9% 1,000 ML IV SCH (12:00)
--- NOTE | 2017-11-05 21:04 | CP.PCM.PN ---
Subjective - Date & Time of Evaluation Date of Evaluation: 11/05/17 Time of Evaluation: 08:00 - Subjective Subjective: clinically same Objective - Vital Signs/Intake and Output Vital Signs (last 24 hours): Temp Pulse Resp BP Pulse Ox 98.7 F 88 20 96/63 L 97 11/05/17 20:10 11/05/17 20:10 11/05/17 20:10 11/05/17 20:10 11/05/17 16:00 Intake and Output: 11/05/17 11/06/17 18:59 06:59 Intake Total 0 Balance 0 - Medications Medications: Current Medications Acetaminophen (Tylenol 325mg Tab) 650 mg PO Q6H PRN PRN Reason: Fever >100.4 F Stop: 11/06/17 02:00 Diphenhydramine HCl (Benadryl) 25 mg IVP Q3H PRN PRN Reason: Itching / Pruritus Last Admin: 11/05/17 20:31 Dose: 25 mg Enoxaparin Sodium (Lovenox) 40 mg SC DAILY [facility] Last Admin: 11/04/17 09:13 Dose: Not Given Folic Acid (Folic Acid) 1 mg PO DAILY [facility] Last Admin: 11/05/17 10:59 Dose: 1 mg Hydroxyurea (Hydrea) 500 mg PO DAILY [facility] Last Admin: 11/05/17 10:59 Dose: 500 mg Sodium Chloride (Sodium Chloride 0.9%) 1,000 mls @ 80 mls/hr IV .[id number] [facility] Last Admin: 11/05/17 12:00 Dose: 80 mls/hr Morphine Sulfate (Morphine) 4 mg IVP Q3 PRN PRN Reason: Pain, severe (8-10) Last Admin: 11/05/17 20:33 Dose: 4 mg - Labs Labs: 11/05/17 07:23 11/05/17 07:23 PT 14.1 SECONDS (9.7-12.2) H 11/02/17 14:12 INR 1.3 11/02/17 14:12 APTT 37 SECONDS (21-34) H 11/02/17 14:12 - Constitutional Appears: Well - Head Exam Head Exam: ATRAUMATIC, NORMAL INSPECTION, NORMOCEPHALIC - Eye Exam Eye Exam: EOMI, Normal appearance, PERRL Pupil Exam: NORMAL ACCOMODATION, PERRL - ENT Exam ENT Exam: Mucous Membranes Moist, Normal Exam - Neck Exam Neck Exam: Full ROM, Normal Inspection. absent: Lymphadenopathy - Respiratory Exam Respiratory Exam: Decreased Breath Sounds - Cardiovascular Exam Cardiovascular Exam: REGULAR RHYTHM, +S1, +S2 - GI/Abdominal Exam GI & Abdominal Exam: Soft, Diminished Bowel Sounds - Rectal Exam Rectal Exam: Deferred
[2017-11-06] MEDS: DiphenhydrAMINE 50 mg/ml Inj IVP PRN ×6 (00:07→21:15)
[2017-11-06] MEDS: Morphine 4 MG/ML VIAL IVP PRN ×8 (00:08→21:15)
[2017-11-06] MEDS: Sodium Chloride 0.9% 1,000 ML IV SCH ×2 (00:45→14:18)
[2017-11-06 06:56] LABS: BASO # 0.1 K/uL (0.0-0.2); BASO % 0.9 % (0.0-2.0); EOS # 0.5 K/uL (0.0-0.7); EOS % 3.3 % (0.0-4.0); HEMOGLOBIN 8.7 g/dL (11.0-16.0); LYMPH # 5.9 K/uL (1.0-4.3); LYMPH % 40.2 % (20.0-40.0); MEAN CELL VOLUME 96.4 fL (81.0-99.0); MEAN CORPUSCULAR HEMOGLOBIN 33.3 pg (27.0-31.0); MEAN CORPUSCULAR HGB CONC 34.6 g/dL (33.0-37.0); MEAN PLATELET VOLUME 8.4 fL (7.2-11.7); MONO # 1.4 K/uL (0.0-0.8); MONO % 9.2 % (0.0-10.0); NEUT # 6.8 K/uL (1.8-7.0); NEUT % 46.4 % (50.0-75.0); NRBC % 0.6 % (0.0-2.0); RBC 2.61 Mil/uL (3.80-5.20); RED CELL DISTRIBUTION WIDTH 20.8 % (11.5-14.5); WHITE BLOOD COUNT 14.8 K/uL (4.8-10.8)
[2017-11-06 07:04] LABS: ALB/GLOB RATIO 1.4 (1.0-2.1); ALBUMIN 4.1 g/dL (3.5-5.0); ALT/SGPT 155 U/L (9-52); AST/SGOT 123 U/L (14-36); BLOOD UREA NITROGEN 15 mg/dL (7-17); CALCIUM 8.7 mg/dl (8.6-10.4); GFR AFRICAN-AMERICAN > 60; GFR NON-AFRICAN AMERICAN > 60
--- NOTE | 2017-11-06 11:06 | CP.PCM.PN ---
Subjective - Date & Time of Evaluation Date of Evaluation: 11/06/17 Time of Evaluation: 11:03 - Subjective Subjective: PGY2 progress note for Dr. Louis Pt seen and examined at bedside. Nursing reports patient s/p one unit PRBCs. Patient reports "feeling better" after transfusion but still feels generalized fatigue. Admits tolerating diet and moving bowels. Denies chest pain, palpitations, or SOB. Objective - Vital Signs/Intake and Output Vital Signs (last 24 hours): Temp Pulse Resp BP Pulse Ox 98.6 F 85 20 115/69 99 11/06/17 07:56 11/06/17 07:56 11/06/17 07:56 11/06/17 07:56 11/06/17 07:56 Intake and Output: 11/06/17 11/06/17 06:59 18:59 Intake Total 1415 Balance 1415 - Medications Medications: Current Medications Diphenhydramine HCl (Benadryl) 25 mg IVP Q3H PRN PRN Reason: Itching / Pruritus Last Admin: 11/06/17 06:25 Dose: 25 mg Enoxaparin Sodium (Lovenox) 40 mg SC DAILY [facility] Last Admin: 11/04/17 09:13 Dose: Not Given Folic Acid (Folic Acid) 1 mg PO DAILY [facility] Last Admin: 11/06/17 09:29 Dose: 1 mg Hydroxyurea (Hydrea) 500 mg PO DAILY [facility] [place] Last Admin: 11/06/17 09:29 Dose: 500 mg Sodium Chloride (Sodium Chloride 0.9%) 1,000 mls @ 80 mls/hr IV .[id number] [facility] Last Admin: 11/06/17 00:45 Dose: 80 mls/hr Morphine Sulfate (Morphine) 4 mg IVP Q3 PRN PRN Reason: Pain, severe (8-10) Last Admin: 11/06/17 09:27 Dose: 4 mg - Labs Labs: 11/06/17 06:29 11/06/17 06:29 PT 14.1 SECONDS (9.7-12.2) H 11/02/17 14:12 INR 1.3 11/02/17 14:12 APTT 37 SECONDS (21-34) H 11/02/17 14:12 - Additional Findings Additional findings: - Constitutional Appears: Non-toxic, No Acute Distress - Head Exam Head Exam: ATRAUMATIC, NORMAL INSPECTION - Eye Exam Eye Exam: EOMI Pupil Exam: NORMAL ACCOMODATION - ENT Exam ENT Exam: Mucous Membranes Moist - Respiratory Exam Respiratory Exam: Clear to Ausculation Bilateral, NORMAL BREATHING PATTERN. absent: Respiratory Distress - Cardiovascular Exam Cardiovascular Exam: REGULAR RHYTHM, +S1, +S2 - GI/Abdominal Exam GI & Abdominal Exam: Soft, Normal Bowel Sounds. absent: Distended, Firm, Guarding, Tenderness - Extremities Exam Extremities Exam: Normal Inspection - Back Exam Back Exam: NORMAL INSPECTION. absent: CVA tenderness (L), CVA tenderness (R), paraspinal tenderness - Neurological Exam Neurological Exam: Alert, Awake, CN II-XII Intact, Normal Gait, Oriented x3 - Psychiatric Exam Psychiatric exam: Calm - Skin Skin Exam: Dry, Intact, Normal Color, Warm Assessment and Plan - Assessment and Plan (Free Text) Plan: Sickle Cell pain crisis Admit to med surg - On admission, Hgb was 7.8 and Retic count was 16.5 - Hgb 8.7 today; s/p transfusion of 1 unit PRBCs - Continue pain management with morphine 4 mg IVP q3. Benadryl 25 mg IVP q3 prn. - Folic Acid 1mg PO daily - Hydroxyurea 500mg PO Daily Troponin negative x 1 Heme/onc, Dr. Drew is consulted - will ask recommendation for transfusion, anticoagulation - f/u reccs f/u retic count Transaminitis/Elevated T bili (11/05/17) AST/ALT 123/155, T bili 2.0 - Continue IV hydration @ 80 cc/hr - Recent hepatitis panel in 08/15/17 was negative Cannabinoid Use Positive UDS Admits occasional recreational use/pain relief Prophylaxis - Lovenox 40mg SC daily currently on hold - SCD - GI not indicated - Regular diet Jose Serrano PGY-[address] Louis
--- NOTE | 2017-11-06 16:37 | CP.PCM.PN ---
Subjective - Date & Time of Evaluation Date of Evaluation: 11/06/17 Time of Evaluation: 08:20 - Subjective Subjective: clinically same Objective - Vital Signs/Intake and Output Vital Signs (last 24 hours): Temp Pulse Resp BP Pulse Ox 98.6 F 85 20 115/69 99 11/06/17 07:56 11/06/17 07:56 11/06/17 07:56 11/06/17 07:56 11/06/17 07:56 Intake and Output: 11/06/17 11/06/17 06:59 18:59 Intake Total 1415 Balance 1415 - Medications Medications: Current Medications Diphenhydramine HCl (Benadryl) 25 mg IVP Q3H PRN PRN Reason: Itching / Pruritus Last Admin: 11/06/17 12:29 Dose: 25 mg Enoxaparin Sodium (Lovenox) 40 mg SC DAILY [facility] Last Admin: 11/04/17 09:13 Dose: Not Given Folic Acid (Folic Acid) 1 mg PO DAILY [facility] Last Admin: 11/06/17 09:29 Dose: 1 mg Hydroxyurea (Hydrea) 500 mg PO DAILY [facility] Last Admin: 11/06/17 09:29 Dose: 500 mg Sodium Chloride (Sodium Chloride 0.9%) 1,000 mls @ 80 mls/hr IV .[id number] [facility] Last Admin: 11/06/17 14:18 Dose: Not Given Morphine Sulfate (Morphine) 4 mg IVP Q3 PRN PRN Reason: Pain, severe (8-10) Last Admin: 11/06/17 15:27 Dose: 4 mg - Labs Labs: 11/06/17 06:29 11/06/17 06:29 PT 14.1 SECONDS (9.7-12.2) H 11/02/17 14:12 INR 1.3 11/02/17 14:12 APTT 37 SECONDS (21-34) H 11/02/17 14:12 - Constitutional Appears: Well - Head Exam Head Exam: ATRAUMATIC, NORMAL INSPECTION, NORMOCEPHALIC - Eye Exam Eye Exam: EOMI, Normal appearance, PERRL Pupil Exam: NORMAL ACCOMODATION, PERRL - ENT Exam ENT Exam: Mucous Membranes Moist, Normal Exam - Neck Exam Neck Exam: Full ROM, Normal Inspection. absent: Lymphadenopathy - Respiratory Exam Respiratory Exam: Decreased Breath Sounds - Cardiovascular Exam Cardiovascular Exam: REGULAR RHYTHM, +S1, +S2 - GI/Abdominal Exam GI & Abdominal Exam: Soft, Diminished Bowel Sounds - Rectal Exam Rectal Exam: Deferred
[2017-11-07] MEDS: DiphenhydrAMINE 50 mg/ml Inj IVP PRN ×4 (00:15→09:14)
[2017-11-07] MEDS: Morphine 4 MG/ML VIAL IVP PRN ×4 (00:15→09:09)
[2017-11-07 01:25] VITALS: O2SAT 99
[2017-11-07] MEDS: Sodium Chloride 0.9% 1,000 ML IV SCH (02:20)
[2017-11-07 07:48] LABS: BASO # 0.1 K/uL (0.0-0.2); BASO % 0.9 % (0.0-2.0); EOS # 0.6 K/uL (0.0-0.7); EOS % 4.8 % (0.0-4.0); HEMOGLOBIN 8.5 g/dL (11.0-16.0); LYMPH % 38.6 % (20.0-40.0); MEAN CELL VOLUME 97.3 fL (81.0-99.0); MEAN CORPUSCULAR HEMOGLOBIN 33.6 pg (27.0-31.0); MEAN CORPUSCULAR HGB CONC 34.5 g/dL (33.0-37.0); MEAN PLATELET VOLUME 8.6 fL (7.2-11.7); MONO # 1.2 K/uL (0.0-0.8); MONO % 9.2 % (0.0-10.0); NEUT # 6.1 K/uL (1.8-7.0); NEUT % 46.5 % (50.0-75.0); NRBC % 0.7 % (0.0-2.0); RBC 2.54 Mil/uL (3.80-5.20); RED CELL DISTRIBUTION WIDTH 21.1 % (11.5-14.5)
[2017-11-07 07:58] LABS: ALB/GLOB RATIO 1.2 (1.0-2.1); ALBUMIN 3.6 g/dL (3.5-5.0); ALT/SGPT 186 U/L (9-52); AST/SGOT 137 U/L (14-36); BLOOD UREA NITROGEN 20 mg/dL (7-17); CALCIUM 8.6 mg/dl (8.6-10.4); GFR AFRICAN-AMERICAN > 60; GFR NON-AFRICAN AMERICAN > 60
[2017-11-07 12:03] VITALS: BP 107/60; PULSE 76; TEMP 98
--- NOTE | 2017-11-07 12:12 | CP.PCM.PN ---
Subjective - Date & Time of Evaluation Date of Evaluation: 11/07/17 Time of Evaluation: 08:00 - Subjective Subjective: clinically same Objective - Vital Signs/Intake and Output Vital Signs (last 24 hours): Temp Pulse Resp BP Pulse Ox 98 F 76 20 107/60 99 11/07/17 08:00 11/07/17 08:00 11/07/17 08:00 11/07/17 08:00 11/07/17 08:00 Intake and Output: 11/07/17 11/07/17 06:59 18:59 Intake Total 940 Balance 940 - Medications Medications: Current Medications Diphenhydramine HCl (Benadryl) 25 mg IVP Q3H PRN PRN Reason: Itching / Pruritus Last Admin: 11/07/17 09:14 Dose: 25 mg Enoxaparin Sodium (Lovenox) 40 mg SC DAILY [facility] Last Admin: 11/04/17 09:13 Dose: Not Given Folic Acid (Folic Acid) 1 mg PO DAILY [facility] Last Admin: 11/07/17 09:15 Dose: 1 mg Hydroxyurea (Hydrea) 500 mg PO DAILY [facility] Last Admin: 11/07/17 09:15 Dose: 500 mg Sodium Chloride (Sodium Chloride 0.9%) 1,000 mls @ 80 mls/hr IV .[id number] [facility] Last Admin: 11/07/17 02:20 Dose: 80 mls/hr Morphine Sulfate (Morphine) 4 mg IVP Q3 PRN PRN Reason: Pain, severe (8-10) Last Admin: 11/07/17 09:09 Dose: 4 mg - Labs Labs: 11/07/17 07:19 11/07/17 07:19 PT 14.1 SECONDS (9.7-12.2) H 11/02/17 14:12 INR 1.3 11/02/17 14:12 APTT 37 SECONDS (21-34) H 11/02/17 14:12 - Constitutional Appears: Well - Head Exam Head Exam: ATRAUMATIC, NORMAL INSPECTION, NORMOCEPHALIC - Eye Exam Eye Exam: EOMI, Normal appearance, PERRL Pupil Exam: NORMAL ACCOMODATION, PERRL - ENT Exam ENT Exam: Mucous Membranes Moist, Normal Exam - Neck Exam Neck Exam: Full ROM, Normal Inspection. absent: Lymphadenopathy - Respiratory Exam Respiratory Exam: Decreased Breath Sounds - Cardiovascular Exam Cardiovascular Exam: REGULAR RHYTHM, +S1, +S2 - GI/Abdominal Exam GI & Abdominal Exam: Soft, Diminished Bowel Sounds - Rectal Exam Rectal Exam: NORMAL INSPECTION
--- NOTE | 2017-11-07 16:25 | CP.PCM.PN ---
Subjective - Date & Time of Evaluation Date of Evaluation: 11/07/17 Time of Evaluation: 10:00 - Subjective Subjective: Alert, awake, no sob or distress, denies pain. Objective - Vital Signs/Intake and Output Vital Signs (last 24 hours): Temp Pulse Resp BP Pulse Ox 98 F 76 20 107/60 99 11/07/17 08:00 11/07/17 08:00 11/07/17 08:00 11/07/17 08:00 11/07/17 08:00 Intake and Output: 11/07/17 11/07/17 06:59 18:59 Intake Total 940 Balance 940 - Labs Labs: 11/07/17 07:19 11/07/17 07:19 PT 14.1 SECONDS (9.7-12.2) H 11/02/17 14:12 INR 1.3 11/02/17 14:12 APTT 37 SECONDS (21-34) H 11/02/17 14:12 Assessment and Plan - Assessment and Plan (Free Text) Assessment: 32 year old female with sickle cell crisis in pain, seen and examined. Alert and orientedx3, wants to go home. Denies pain or distress. Discussed with DR Ariel Louis, plan to discharge home today. Advised to follow up in the office in 1 week.
== END 2017-11-07 12:12 | disposition home or self-care (01) | DRG 395 ==
LOC: C.ER 11:43 → C.9E 15:11 → C.3T 17:43
PROVIDERS: ADMIT Internal Medicine Nephrology; ATTEND Internal Medicine Nephrology
DX: D57.00 Hb-SS disease with crisis, unspecified (principal); G89.29 Other chronic pain; Z90.81 Acquired absence of spleen; Z76.5 Malingerer [conscious simulation]

== ENCOUNTER 2017-11-10 10:43 | Emergency (ER) | payer MEDICAID ==
[2017-11-10 10:43] VITALS: BMI 22.6
--- NOTE | 2017-11-10 12:08 | C.PDOC ---
History Of Present Illness 32 y/o female with history of sickle cell presents to ED for re-evaluation of diffuse body pain for past 4 days. Patient admits, was admitted to [facility] on 11/02/17 for sickle cell crisis and discharged on 11/07/17. Pt sts, " no pain medication at home". Patient denies fever, chills, severe headache, dizziness, SOB, dyspnea, diaphoresis, palpitation, abd. pain, V/D, numbness, weakness, UTI sx. Ambulate to Ed for evaluation, not in any apparent distress. Time Seen by Provider: 11/10/17 11:51 Chief Complaint (Nursing): Pain, Chronic History Per: Patient History/Exam Limitations: no limitations Onset/Duration Of Symptoms: Days Current Symptoms Are (Timing): Still Present Past Medical History Reviewed: Historical Data, Nursing Documentation, Vital Signs Vital Signs: Last Vital Signs Temp 98.6 F 11/10/17 13:42 Pulse 88 11/10/17 13:42 Resp 14 11/10/17 13:42 BP 110/77 11/10/17 13:42 Pulse Ox 100 11/10/17 13:42 - Medical History PMH: Anemia, Bronchitis, Gall Bladder Disease (GB stone removed), Pneumonia, Sickle Cell Disease Surgical History: Cholecystectomy - [facility] Procedures INFLUENZA VACCINATION (03/16/12) INJECT/INFUSE ELECTROLYT (09/07/13) INJECT/INFUSE NEC (01/25/14) INSERT VAD RESERVOIR IN CHEST SUBCU/FASCIA, OPEN (05/31/17) INSERTION OF INFUSION DEV INTO SUP VENA CAVA, PERC APPROACH (01/25/17) NEBULIZER THERAPY (12/02/13) PACKED CELL TRANSFUSION (02/12/15) REMOVAL OF VAD FROM TRUNK SUBCU/FASCIA, OPEN APPROACH (04/15/16) TRANSFUSE NONAUT RED BLOOD CELLS IN PERIPH VEIN, PERC (09/14/17) VACCINATION NEC (08/22/13) Family History: States: No Known Family Hx - Social History Hx Tobacco Use: No Hx Alcohol Use: No Hx Substance Use: Yes - Immunization History Hx Tetanus Toxoid Vaccination: Yes Hx Influenza Vaccination: Yes (2016) Hx Pneumococcal Vaccination: Yes (2014) Review Of Systems Constitutional: Negative for: Fever, Chills Cardiovascular: Negative for: Chest Pain Respiratory: Negative for: Shortness of Breath Gastrointestinal: Negative for: Nausea, Vomiting Musculoskeletal: Positive for: Other (diffuse body pain) Skin: Negative for: Rash Neurological: Negative for: Weakness, Numbness Physical Exam - Physical Exam Appears: Well, Non-toxic, No Acute Distress Skin: Warm, Dry, No Rash Head: Normacephalic Eye(s): bilateral: PERRL Nose: No Flaring Oral Mucosa: Moist Tongue: Normal Appearing Throat: No Erythema, No Drooling Neck: Trachea Midline, Supple Cardiovascular: Rhythm Regular, No Murmur, No JVD, Other ((-) carotid bruits B/L ) Respiratory: No Decreased Breath Sounds, No Rales, No Rhonchi, No Stridor, No Wheezing Gastrointestinal/Abdominal: Soft, No Tenderness, No Organomegaly, No Distention , No Guarding, No Rebound Back: No CVA Tenderness Extremity: Normal ROM, No Pedal Edema, Capillary Refill (<2 seconds), No Swelling Neurological/Psych: Oriented x3, Normal Speech, Normal Cognition, Normal Motor, Normal Sensation ED Course And Treatment - Laboratory Results Result Diagrams: 11/10/17 12:17 11/10/17 12:17 Lab Interpretation: No Acute Changes ECG: Interpreted By Me, Viewed By Me ECG Rhythm: Sinus Rhythm Interpretation Of ECG: Sinus tachy@101/min, NAD, no acute T wave or ST-T changes. O2 Sat by Pulse Oximetry: 99 (RA) Pulse Ox Interpretation: Normal Progress Note: On re-evaluation, pt reports "feels much better " and request discharge now. Pt is afebrile, hemodynamicalys table. NOn-toxic. Ambulatory in ED with stable gait. Tolerate Po well in ED. PulseOx 100% RA. Neck; SUpple , (-) JVD, (-) carotid bruits B/L. Lungs: CTA B/L, BS equal B/L. CVS: (+)S1S2 , reg. Abd: soft, NT/ND, (+) BS, (-) guarding, (-) rebound. back: (-) CVA tenderness. Blood work review, no acute findings. Pt has clinical findings c/ w chronic pain, opioid abuse, hx of SCD. Pt advised, ref. to F/u with PMD, PM in2-3 days for re-eval. return if any new changes. Disposition - Disposition Referrals: Enzo Louis MD [Staff Provider] - Disposition: HOME/ ROUTINE Disposition Time: 13:10 Condition: STABLE Additional Instructions: Follow up with PMD in 2-3 days for re-evaluation. return if any new changes. Instructions: Chronic Pain (DC), Drug Abuse and Drug Addiction (DC) Forms: [employer] (Zimbabwean) - Clinical Impression Clinical Impression: Sickle cell crisis, Chronic pain, Drug-seeking behavior - PA / MINE EXPERT / Resident Statement MD/DO has reviewed & agrees with the documentation as recorded. - Scribe Statement The provider has reviewed the documentation as recorded by the Scribvalarie Rodriguez All medical record entries made by the Rosa were at my direction and personally dictated by me. I have reviewed the chart and agree that the record accurately reflects my personal performance of the history, physical exam, medical decision making, and the department course for this patient. I have also personally directed, reviewed, and agree with the discharge instructions and disposition.
[2017-11-10 12:23] LABS: BASO # 0.1 K/uL (0.0-0.2); BASO % 0.8 % (0.0-2.0); EOS # 0.1 K/uL (0.0-0.7); EOS % 0.6 % (0.0-4.0); HEMOGLOBIN 8.5 g/dL (11.0-16.0); LYMPH # 5.5 K/uL (1.0-4.3); LYMPH % 43.3 % (20.0-40.0); MEAN CELL VOLUME 94.9 fL (81.0-99.0); MEAN CORPUSCULAR HEMOGLOBIN 32.8 pg (27.0-31.0); MEAN CORPUSCULAR HGB CONC 34.6 g/dL (33.0-37.0); MEAN PLATELET VOLUME 8.6 fL (7.2-11.7); MONO % 8.2 % (0.0-10.0); NEUT % 47.1 % (50.0-75.0); NRBC % 0.1 % (0.0-2.0); RBC 2.58 Mil/uL (3.80-5.20); RED CELL DISTRIBUTION WIDTH 20.6 % (11.5-14.5); WHITE BLOOD COUNT 12.7 K/uL (4.8-10.8)
[2017-11-10 12:28] LABS: SQUAMOUS EPITHIAL 2 /hpf (0-5); URINE BACTERIA OCC (<OCC); URINE BILIRUBIN NEGATIVE (NEGATIVE); URINE BLOOD NEGATIVE (NEGATIVE); URINE CLARITY Clear (Clear); URINE COLOR Amber (YELLOW); URINE GLUCOSE (UA) NORMAL (Normal); URINE LEUKOCYTE ESTERASE NEG Leu/uL (Negative); URINE PROTEIN 2+ mg/dL (NEGATIVE)
[2017-11-10 12:30] LABS: INR 1.3; PROTHROMBIN TIME 14.2 SECONDS (9.7-12.2)
[2017-11-10 12:35] LABS: BLOOD UREA NITROGEN 11 mg/dL (7-17); CALCIUM 9.3 mg/dl (8.6-10.4); GFR AFRICAN-AMERICAN > 60; GFR NON-AFRICAN AMERICAN > 60
[2017-11-10] MEDS ORDERED: DiphenhydrAMINE 50 mg/ml Inj IVP STA (12:39)
[2017-11-10] MEDS ORDERED: DiphenhydrAMINE 50 mg/ml Inj ONE (12:51)
[2017-11-10] MEDS ORDERED: Morphine 4 MG/ML VIAL ONE (12:51)
[2017-11-10 13:43] VITALS: BP 110/77; PULSE 88; RESP 14; TEMP 98.6
[2017-11-10 13:52] VITALS: O2SAT 99
== END 2017-11-10 13:57 | disposition home or self-care (01) ==
LOC: C.ER 10:43
DX: D57.00 Hb-SS disease with crisis, unspecified (principal); G89.29 Other chronic pain; Z76.5 Malingerer [conscious simulation]
CPT/HCPCS: 80048; 81001; 85025; 85044; 85610; 85730; 96374; 96375; 99285; J1200; J2270

== ENCOUNTER 2017-11-21 09:52 | Emergency (ER) | payer MEDICAID ==
[2017-11-21 09:52] VITALS: BMI 22.6
[2017-11-21 09:59] VITALS: BP 120/70; PULSE 93; RESP 20; TEMP 99; O2SAT 97
--- NOTE | 2017-11-21 10:09 | C.PDOC ---
History Of Present Illness 32 year old female with hx scd, well known to ED, c/o of pain all over her body , as well as intermittent chest pain, persisting for the last four days. She denies fever, chills, nausea, vomiting, diarrhea, shortness of breath, and cough. Patient reports that she is taking Indomethacin at home with no relief of her symptoms. Time Seen by Provider: 11/21/17 10:04 Chief Complaint (Nursing): Pain, Chronic History Per: Patient History/Exam Limitations: no limitations Onset/Duration Of Symptoms: Days (4), Persistent Current Symptoms Are (Timing): Still Present Past Medical History Reviewed: Historical Data, Nursing Documentation, Vital Signs Vital Signs: Last Vital Signs Temp 99 F 11/21/17 09:56 Pulse 93 H 11/21/17 09:56 Resp 20 11/21/17 09:56 BP 120/70 11/21/17 09:56 Pulse Ox 97 11/21/17 16:56 - Medical History PMH: Anemia, Bronchitis, Gall Bladder Disease, Pneumonia, Sickle Cell Disease Denies: Chronic Kidney Disease Surgical History: Cholecystectomy - [facility] Procedures INFLUENZA VACCINATION (03/16/12) INJECT/INFUSE ELECTROLYT (09/07/13) INJECT/INFUSE NEC (01/25/14) INSERT VAD RESERVOIR IN CHEST SUBCU/FASCIA, OPEN (05/31/17) INSERTION OF INFUSION DEV INTO SUP VENA CAVA, PERC APPROACH (01/25/17) NEBULIZER THERAPY (12/02/13) PACKED CELL TRANSFUSION (02/12/15) REMOVAL OF VAD FROM TRUNK SUBCU/FASCIA, OPEN APPROACH (04/15/16) TRANSFUSE NONAUT RED BLOOD CELLS IN PERIPH VEIN, PERC (09/14/17) VACCINATION NEC (08/22/13) Family History: States: No Known Family Hx - Social History Hx Tobacco Use: No Hx Alcohol Use: No Hx Substance Use: Yes - Immunization History Hx Tetanus Toxoid Vaccination: Yes Hx Influenza Vaccination: Yes (2016) Hx Pneumococcal Vaccination: Yes (2014) Review Of Systems Constitutional: Positive for: Malaise. Negative for: Fever, Chills Cardiovascular: Positive for: Chest Pain. Negative for: Palpitations, Light Headedness Respiratory: Negative for: Cough, Shortness of Breath Gastrointestinal: Negative for: Nausea, Vomiting, Abdominal Pain, Diarrhea Genitourinary: Negative for: Dysuria Musculoskeletal: Positive for: Other (all over pain) Skin: Negative for: Rash Neurological: Negative for: Weakness, Numbness Physical Exam - Physical Exam Appears: Non-toxic, No Acute Distress Skin: Warm, Dry Head: Atraumatic, Normacephalic Eye(s): bilateral: Normal Inspection Nose: Normal Oral Mucosa: Moist Throat: Normal, No Erythema, No Exudate Neck: Normal Chest: Symmetrical Cardiovascular: Rhythm Regular, No Murmur Respiratory: Normal Breath Sounds, No Rales, No Rhonchi, No Wheezing Gastrointestinal/Abdominal: Soft, No Tenderness, No Guarding, No Rebound Neurological/Psych: Oriented x3, Normal Speech, Normal Cognition ED Course And Treatment - Laboratory Results Result Diagrams: 11/21/17 11:17 11/21/17 11:17 ECG: Interpreted By Me ECG Rhythm: Sinus Rhythm (77bpm, normal) ECG Interpretation: Normal O2 Sat by Pulse Oximetry: 97 (RA) Pulse Ox Interpretation: Normal Progress Note: Plan: EKG. CMP. Troponin. CBC. Reticulocyte Count. Benadryl 50mg PO. Dilaudid 8mg PO. Urinalysis Medical Decision Making Medical Decision Making: pt with scd c/o all over body pain x 4 days, with no fever. taking indomethicin with no improvement. pt c/o intermittent cp with ekg showing nsr and neg trop. pt reports feeling better after one dose po dilaudid. pt notified about decreasing h/h today compared to last time and elevated retic count. pt given copy of labs to show her sign language translator at scheduled appt on . 1302 pt left ed prior to receiving dishcarge papers. Disposition Counseled Patient/Family Regarding: Studies Performed, Diagnosis, Need For Followup - Disposition Referrals: Jeanie Louis MD [Medical Doctor] - Disposition: HOME/ ROUTINE Disposition Time: 13:02 Condition: IMPROVED Additional Instructions: Please follow up with your sign language translator on as scheduled; show doctor blood work tests done in ED today. Follow up Dr Louis. Return for any worse symptoms. Instructions: Sickle Cell Disease (DC) Forms: [employer] (Tristanian) - Clinical Impression Clinical Impression: Sickle cell disease, Chronic pain - PA / COMPOUND COATING MACHINE OFFBEARER / Resident Statement MD/DO has reviewed & agrees with the documentation as recorded. - Scribe Statement The provider has reviewed the documentation as recorded by the Scribe (Steven Kalie) All medical record entries made by the Scribe were at my direction and personally dictated by me. I have reviewed the chart and agree that the record accurately reflects my personal performance of the history, physical exam, medical decision making, and the department course for this patient. I have also personally directed, reviewed, and agree with the discharge instructions and disposition.
[2017-11-21 11:16] LABS: SQUAMOUS EPITHIAL 12 /hpf (0-5); URINE BILIRUBIN NEGATIVE (NEGATIVE); URINE BLOOD NEGATIVE (NEGATIVE); URINE CLARITY Hazy (Clear); URINE COLOR Yellow (YELLOW); URINE GLUCOSE (UA) NORMAL (Normal); URINE LEUKOCYTE ESTERASE NEG Leu/uL (Negative); URINE PROTEIN NEGATIVE (NEGATIVE); URINE UROBILINOGEN NORMAL mg/dL (0.2-1.0)
[2017-11-21 11:23] LABS: BASO # 0.1 K/uL (0.0-0.2); BASO % 0.8 % (0.0-2.0); EOS # 0.2 K/uL (0.0-0.7); EOS % 1.4 % (0.0-4.0); HEMOGLOBIN 7.7 g/dL (11.0-16.0); LYMPH # 5.3 K/uL (1.0-4.3); MEAN CORPUSCULAR HEMOGLOBIN 33.9 pg (27.0-31.0); MEAN PLATELET VOLUME 7.5 fL (7.2-11.7); MONO % 7.8 % (0.0-10.0); NEUT # 6.6 K/uL (1.8-7.0); NRBC % 1.1 % (0.0-2.0); RBC 2.27 Mil/uL (3.80-5.20); RED CELL DISTRIBUTION WIDTH 24.3 % (11.5-14.5); WHITE BLOOD COUNT 13.2 K/uL (4.8-10.8)
[2017-11-21 11:24] LABS: MEAN CELL VOLUME 99.7 fL (81.0-99.0)
[2017-11-21 11:41] LABS: ALB/GLOB RATIO 1.2 (1.0-2.1); ALBUMIN 3.8 g/dL (3.5-5.0); ALT/SGPT 120 U/L (9-52); AST/SGOT 78 U/L (14-36); BLOOD UREA NITROGEN 9 mg/dL (7-17); CALCIUM 9.2 mg/dl (8.6-10.4); GFR AFRICAN-AMERICAN > 60; GFR NON-AFRICAN AMERICAN > 60
--- NOTE | 2017-11-25 22:46 | CARD ---
APPROVED REPORT EKG Measurement Heart [id number] <Conclusion> Normal sinus rhythm Normal ECG
== END 2017-11-21 13:08 | disposition home or self-care (01) ==
LOC: C.ER 09:52
DX: D57.1 Sickle-cell disease without crisis (principal); G89.29 Other chronic pain

== ENCOUNTER 2017-11-29 11:02 | Emergency (ER) | payer MEDICAID ==
[2017-11-29 11:03] VITALS: BMI 22.6
[2017-11-29 12:07] LABS: HCG,QUALITATIVE URINE NEGATIVE (NEGATIVE)
[2017-11-29 12:11] LABS: SQUAMOUS EPITHIAL < 1 /hpf (0-5); URINE BILIRUBIN NEGATIVE (NEGATIVE); URINE BLOOD NEGATIVE (NEGATIVE); URINE CLARITY Clear (Clear); URINE COLOR Yellow (YELLOW); URINE GLUCOSE (UA) NORMAL (Normal); URINE LEUKOCYTE ESTERASE NEG Leu/uL (Negative); URINE PROTEIN NEGATIVE (NEGATIVE)
[2017-11-29 12:12] LABS: BASO # 0.1 K/uL (0.0-0.2); BASO % 0.9 % (0.0-2.0); EOS # 0.2 K/uL (0.0-0.7); EOS % 1.5 % (0.0-4.0); HEMOGLOBIN 7.3 g/dL (11.0-16.0); LYMPH # 4.7 K/uL (1.0-4.3); LYMPH % 32.5 % (20.0-40.0); MEAN CELL VOLUME 101.9 fL (81.0-99.0); MEAN CORPUSCULAR HEMOGLOBIN 34.8 pg (27.0-31.0); MEAN CORPUSCULAR HGB CONC 34.2 g/dL (33.0-37.0); MEAN PLATELET VOLUME 7.9 fL (7.2-11.7); MONO # 1.4 K/uL (0.0-0.8); MONO % 9.6 % (0.0-10.0); NEUT # 8.1 K/uL (1.8-7.0); NEUT % 55.5 % (50.0-75.0); NRBC % 1.6 % (0.0-2.0); RBC 2.09 Mil/uL (3.80-5.20); RED CELL DISTRIBUTION WIDTH 26.6 % (11.5-14.5); WHITE BLOOD COUNT 14.5 K/uL (4.8-10.8)
--- NOTE | 2017-11-29 12:38 | C.PDOC ---
History Of Present Illness 32-year-old female, PMHx includes sickle cell disease, presents to the emergency department with complaints of body pain, that is consistent with her sickle cell crisis symptoms. Patient denies any nausea/vomiting, fever, chills, shortness of breath, chest pain, or any other associated symptoms. Patient has a Hx of multiple visits to ED for same complaint. Time Seen by Provider: 11/29/17 11:09 Chief Complaint (Nursing): Pain, Chronic History Per: Patient History/Exam Limitations: no limitations Current Symptoms Are (Timing): Still Present Severity: Moderate Past Medical History Reviewed: Historical Data, Nursing Documentation, Vital Signs Vital Signs: Last Vital Signs Temp 98 F 11/29/17 12:55 Pulse 78 11/29/17 12:55 Resp 18 11/29/17 12:55 BP 116/72 11/29/17 12:55 Pulse Ox 98 11/29/17 12:55 - Medical History PMH: Anemia, Bronchitis, Gall Bladder Disease, Pneumonia, Sickle Cell Disease Surgical History: Cholecystectomy - [facility] Procedures INFLUENZA VACCINATION (03/16/12) INJECT/INFUSE ELECTROLYT (09/07/13) INJECT/INFUSE NEC (01/25/14) INSERT VAD RESERVOIR IN CHEST SUBCU/FASCIA, OPEN (05/31/17) INSERTION OF INFUSION DEV INTO SUP VENA CAVA, PERC APPROACH (01/25/17) NEBULIZER THERAPY (12/02/13) PACKED CELL TRANSFUSION (02/12/15) REMOVAL OF VAD FROM TRUNK SUBCU/FASCIA, OPEN APPROACH (04/15/16) TRANSFUSE NONAUT RED BLOOD CELLS IN PERIPH VEIN, PERC (09/14/17) VACCINATION NEC (08/22/13) Family History: States: Unknown Family Hx - Social History Hx Tobacco Use: No Hx Alcohol Use: No Hx Substance Use: Yes - Immunization History Hx Tetanus Toxoid Vaccination: Yes Hx Influenza Vaccination: Yes (2016) Hx Pneumococcal Vaccination: Yes (2014) Review Of Systems Constitutional: Positive for: Malaise. Negative for: Fever, Chills Cardiovascular: Negative for: Chest Pain, Palpitations Respiratory: Negative for: Shortness of Breath Gastrointestinal: Negative for: Nausea, Vomiting Musculoskeletal: Negative for: Back Pain Neurological: Negative for: Weakness, Numbness, Headache, Dizziness Physical Exam - Physical Exam Appears: Non-toxic, No Acute Distress Skin: Normal Color, Warm, Dry, No Rash Head: Atraumatic, Normacephalic Eye(s): bilateral: Normal Inspection Nose: Normal Oral Mucosa: Moist Lips: Normal Appearing Neck: Normal ROM Chest: Symmetrical Cardiovascular: Rhythm Regular, No Murmur Respiratory: Normal Breath Sounds, No Accessory Muscle Use Gastrointestinal/Abdominal: Soft, No Tenderness Extremity: Normal ROM, No Deformity, No Swelling Neurological/Psych: Oriented x3, Normal Speech ED Course And Treatment - Laboratory Results Result Diagrams: 11/29/17 11:58 11/29/17 11:58 O2 Sat by Pulse Oximetry: 96 Medical Decision Making Medical Decision Making: Impression: Sickle cell crisis Plan: * Bloodwork * Benadryl, Dilaudid PO * HCG/UA Labs reviewed, no acute changes. Patient stable for discharge and given follow up instructions. Disposition - Disposition Referrals: [facility] [place] [Outside] [facility] [employer] [facility] [Outside] Disposition: HOME/ ROUTINE Disposition Time: 13:00 Condition: STABLE Instructions: Chronic Pain (DC) Forms: [employer] (Latvian) - POA Present On Arrival: None - Clinical Impression Clinical Impression: Chronic pain, Sickle cell disease - Scribe Statement The provider has reviewed the documentation as recorded by the Scribe (Anika Shearer) All medical record entries made by the Scribe were at my direction and personally dictated by me. I have reviewed the chart and agree that the record accurately reflects my personal performance of the history, physical exam, medical decision making, and the department course for this patient. I have also personally directed, reviewed, and agree with the discharge instructions and disposition.
[2017-11-29 12:47] LABS: ALB/GLOB RATIO 1.5 (1.0-2.1); ALBUMIN 4.1 g/dL (3.5-5.0); ALT/SGPT 124 U/L (9-52); AST/SGOT 80 U/L (14-36); BLOOD UREA NITROGEN 12 mg/dL (7-17); CALCIUM 9.2 mg/dl (8.6-10.4); GFR AFRICAN-AMERICAN > 60; GFR NON-AFRICAN AMERICAN > 60
[2017-11-29 12:56] VITALS: BP 116/72; PULSE 78; RESP 18; TEMP 98
[2017-11-29 14:27] VITALS: O2SAT 96
== END 2017-11-29 13:00 | disposition home or self-care (01) ==
LOC: C.ER 11:02
DX: D57.1 Sickle-cell disease without crisis (principal); G89.29 Other chronic pain

== ENCOUNTER 2017-12-06 09:58 | Emergency (ER) | payer MEDICAID ==
[2017-12-06 09:58] VITALS: BMI 22.6
[2017-12-06 11:34] LABS: BASO # 0.2 K/uL (0.0-0.2); EOS # 0.3 K/uL (0.0-0.7); EOS % 1.8 % (0.0-4.0); HEMOGLOBIN 7.9 g/dL (11.0-16.0); LYMPH # 4.2 K/uL (1.0-4.3); LYMPH % 28.1 % (20.0-40.0); MEAN CELL VOLUME 105.9 fL (81.0-99.0); MEAN CORPUSCULAR HEMOGLOBIN 36.2 pg (27.0-31.0); MEAN CORPUSCULAR HGB CONC 34.2 g/dL (33.0-37.0); MONO # 1.3 K/uL (0.0-0.8); MONO % 8.8 % (0.0-10.0); NEUT % 60.3 % (50.0-75.0); NRBC % 2.4 % (0.0-2.0); RBC 2.19 Mil/uL (3.80-5.20); RED CELL DISTRIBUTION WIDTH 30.3 % (11.5-14.5); WHITE BLOOD COUNT 14.9 K/uL (4.8-10.8)
[2017-12-06 11:38] LABS: SQUAMOUS EPITHIAL 13 /hpf (0-5); URINE BACTERIA RARE (<OCC); URINE BILIRUBIN NEGATIVE (NEGATIVE); URINE BLOOD NEGATIVE (NEGATIVE); URINE CLARITY Hazy (Clear); URINE COLOR Yellow (YELLOW); URINE GLUCOSE (UA) NORMAL (Normal); URINE LEUKOCYTE ESTERASE NEG Leu/uL (Negative); URINE PROTEIN NEGATIVE (NEGATIVE); URINE UROBILINOGEN NORMAL mg/dL (0.2-1.0)
[2017-12-06 11:48] LABS: ALB/GLOB RATIO 1.4 (1.0-2.1); ALBUMIN 4.2 g/dL (3.5-5.0); ALT/SGPT 220 U/L (9-52); AST/SGOT 151 U/L (14-36); BLOOD UREA NITROGEN 9 mg/dL (7-17); CALCIUM 9.5 mg/dl (8.6-10.4); GFR AFRICAN-AMERICAN > 60; GFR NON-AFRICAN AMERICAN > 60
[2017-12-06 13:36] VITALS: O2SAT 96
--- NOTE | 2017-12-06 15:03 | C.PDOC ---
History Of Present Illness 32 year old female with a history of sickle-cell disease presents to the emergency department with several day hx of her all over pain typical of her pain crises with generalized weakness. Patient is well known in the ED and presents often for the same symptoms. She denies chest pain, shortness of breath , cough, fever, chills, abdominal pain and urinary symptoms. Time Seen by Provider: 12/06/17 10:13 Chief Complaint (Nursing): Pain, Chronic History Per: Patient History/Exam Limitations: no limitations Onset/Duration Of Symptoms: Hrs Current Symptoms Are (Timing): Still Present Past Medical History Reviewed: Historical Data, Nursing Documentation, Vital Signs Vital Signs: Last Vital Signs Temp 98.5 F 12/06/17 15:05 Pulse 91 H 12/06/17 15:05 Resp 17 12/06/17 15:05 BP 127/88 12/06/17 15:05 Pulse Ox 96 12/06/17 19:12 - Medical History PMH: Anemia, Bronchitis, Gall Bladder Disease, Pneumonia, Sickle Cell Disease Denies: Chronic Kidney Disease Surgical History: Cholecystectomy - [facility] Procedures INFLUENZA VACCINATION (03/16/12) INJECT/INFUSE ELECTROLYT (09/07/13) INJECT/INFUSE NEC (01/25/14) INSERT VAD RESERVOIR IN CHEST SUBCU/FASCIA, OPEN (05/31/17) INSERTION OF INFUSION DEV INTO SUP VENA CAVA, PERC APPROACH (01/25/17) NEBULIZER THERAPY (12/02/13) PACKED CELL TRANSFUSION (02/12/15) REMOVAL OF VAD FROM TRUNK SUBCU/FASCIA, OPEN APPROACH (04/15/16) TRANSFUSE NONAUT RED BLOOD CELLS IN PERIPH VEIN, PERC (09/14/17) VACCINATION NEC (08/22/13) Family History: States: No Known Family Hx - Social History Hx Tobacco Use: No Hx Alcohol Use: No Hx Substance Use: Yes - Immunization History Hx Tetanus Toxoid Vaccination: Yes Hx Influenza Vaccination: Yes (2016) Hx Pneumococcal Vaccination: Yes (2014) Review Of Systems Constitutional: Positive for: Weakness, Malaise. Negative for: Fever, Chills Cardiovascular: Negative for: Chest Pain Respiratory: Negative for: Cough, Shortness of Breath Gastrointestinal: Negative for: Nausea, Vomiting, Abdominal Pain, Diarrhea Genitourinary: Negative for: Dysuria Skin: Negative for: Rash Neurological: Negative for: Weakness, Numbness Physical Exam - Physical Exam Appears: Non-toxic, No Acute Distress Skin: Warm, Dry, No Rash Head: Atraumatic, Normacephalic Eye(s): bilateral: Normal Inspection, EOMI Nose: Normal Neck: Normal, Supple Chest: Symmetrical Cardiovascular: Rhythm Regular Respiratory: Normal Breath Sounds, No Rales, No Rhonchi, No Wheezing Gastrointestinal/Abdominal: Normal Exam, Soft, No Tenderness, No Guarding, No Rebound Extremity: Normal ROM Neurological/Psych: Oriented x3, Other (no focal deficits) ED Course And Treatment - Laboratory Results Result Diagrams: 12/06/17 11:28 12/06/17 11:28 O2 Sat by Pulse Oximetry: 96 (RA) Pulse Ox Interpretation: Normal Progress Note: Plan: CMP. LDH. CBC. Reticulocyte Count. Benadryl 50mg PO. Dilaudid 8mg PO. Urinalysis Medical Decision Making Medical Decision Making: pt requesting second dose medication and then wants to leave. discussed with patient that she needs to wait a while before leaving. 1500 pt feeling better, to be discharged. Disposition Counseled Patient/Family Regarding: Studies Performed, Diagnosis, Need For Followup - Disposition Referrals: Enzo Louis MD [Staff Provider] - Disposition: HOME/ ROUTINE Disposition Time: 15:01 Condition: GOOD Additional Instructions: Please follow up with Dr Louis in a few days, and review labs- increasing reticulocyte count and increasing liver functions tests. Return to ER for any worse symptoms. Forms: [facility] (Chinese), General Discharge Instructions - Clinical Impression Clinical Impression: Chronic pain, Sickle-cell disease with pain - PA / SHOE SHANKER / Resident Statement MD/DO has reviewed & agrees with the documentation as recorded. - Scribe Statement The provider has reviewed the documentation as recorded by the Scribe (Steven Jade) All medical record entries made by the Scribe were at my direction and personally dictated by me. I have reviewed the chart and agree that the record accurately reflects my personal performance of the history, physical exam, medical decision making, and the department course for this patient. I have also personally directed, reviewed, and agree with the discharge instructions and disposition.
[2017-12-06 15:45] VITALS: BP 127/88; PULSE 91; RESP 17; TEMP 98.5
== END 2017-12-06 15:10 | disposition home or self-care (01) ==
LOC: C.ER 09:58
DX: D57.00 Hb-SS disease with crisis, unspecified (principal); G89.29 Other chronic pain

== ENCOUNTER 2017-12-16 07:57 | Emergency (ER) | payer MEDICAID ==
[2017-12-16 07:58] VITALS: BMI 22.6
--- NOTE | 2017-12-16 08:15 | C.PDOC ---
History Of Present Illness 32 y/o female, w/PMhx of sickle cell disease, presents to the ER complaining of diffuse body aches. Patient states current symptoms are similar to prior sickle cell pain. Patient is also complaining of itching and swelling to her bilateral legs; states that she was bit by several bugs when she went camping yesterday. She did notice a tick on her and removed it, but denies bullseye rash. Patient also denies CP, SOB, palpitations, cough, fever, abdominal pain. Time Seen by Provider: 12/16/17 07:59 Chief Complaint (Nursing): Pain, Chronic History Per: Patient History/Exam Limitations: no limitations Onset/Duration Of Symptoms: Days Current Symptoms Are (Timing): Still Present Severity: Moderate Past Medical History Reviewed: Historical Data, Nursing Documentation, Vital Signs Vital Signs: Last Vital Signs Temp 98.7 F 12/16/17 10:49 Pulse 101 H 12/16/17 10:49 Resp 20 12/16/17 10:49 BP 124/74 12/16/17 10:49 Pulse Ox 94 L 12/16/17 10:49 - Medical History PMH: Anemia, Bronchitis, Gall Bladder Disease, Pneumonia, Sickle Cell Disease Surgical History: Cholecystectomy - [facility] Procedures INFLUENZA VACCINATION (03/16/12) INJECT/INFUSE ELECTROLYT (09/07/13) INJECT/INFUSE NEC (01/25/14) INSERT VAD RESERVOIR IN CHEST SUBCU/FASCIA, OPEN (05/31/17) INSERTION OF INFUSION DEV INTO SUP VENA CAVA, PERC APPROACH (01/25/17) NEBULIZER THERAPY (12/02/13) PACKED CELL TRANSFUSION (02/12/15) REMOVAL OF VAD FROM TRUNK SUBCU/FASCIA, OPEN APPROACH (04/15/16) TRANSFUSE NONAUT RED BLOOD CELLS IN PERIPH VEIN, PERC (09/14/17) VACCINATION NEC (08/22/13) Family History: States: No Known Family Hx - Social History Hx Tobacco Use: No Hx Alcohol Use: No Hx Substance Use: Yes - Immunization History Hx Tetanus Toxoid Vaccination: Yes Hx Influenza Vaccination: Yes (2016) Hx Pneumococcal Vaccination: Yes (2014) Review Of Systems Constitutional: Positive for: Malaise. Negative for: Fever, Chills Cardiovascular: Negative for: Chest Pain Respiratory: Negative for: Shortness of Breath Gastrointestinal: Negative for: Abdominal Pain Skin: Positive for: Rash (bug bites/itching of legs ) Neurological: Negative for: Weakness, Numbness, Headache, Dizziness Physical Exam - Physical Exam Appears: Well, Non-toxic, No Acute Distress Skin: Normal Color, Warm, Dry, Other (scattered bug bites of bilateral lower extremities, no erythema) Head: Normacephalic Eye(s): bilateral: Normal Inspection Oral Mucosa: Moist Neck: Supple Chest: Other (port at right upper chest) Cardiovascular: Rhythm Regular Respiratory: Normal Breath Sounds, No Rales, No Rhonchi, No Wheezing Gastrointestinal/Abdominal: Normal Exam, Bowel Sounds, Soft, No Tenderness Extremity: Normal ROM, No Pedal Edema, No Calf Tenderness, Capillary Refill (< 2 sec all digits ) Extremity: Bilateral: Normal Color And Temperature, Normal ROM Pulses: Left Dorsalis Pedis: Normal, Right Dorsalis Pedis: Normal Neurological/Psych: Oriented x3 ED Course And Treatment - Laboratory Results Result Diagrams: 12/16/17 08:37 12/16/17 08:37 O2 Sat by Pulse Oximetry: 96 (RA) Pulse Ox Interpretation: Normal Progress Note: Blood work, UA, Upreg ordered and reviewed. Patient given PO sickle cell protocol and IV NS bolus. Reevaluation Time: 10:45 Reassessment Condition: Improved (Patient reassessed, is resting comfortably and states pain has improved. She is well appearing, and comfortable being discharged home. Lyme titers still pending, will notify her of results if (+). Patient instructed to follow up with PMD in 1-2 days, and understands she should return to ED if symptoms worsen.) Disposition Counseled Patient/Family Regarding: Studies Performed, Diagnosis, Need For Followup - Disposition Referrals: Enzo Louis MD [Staff Provider] - Disposition: HOME/ ROUTINE Disposition Time: 10:45 Condition: STABLE Additional Instructions: FOLLOW UP WITH YOUR DOCTOR IN 1-2 DAYS I WILL CALL YOU IF LYME TITER COMES BACK POSITIVE RETURN TO ER IF SYMPTOMS WORSEN Instructions: Sickle Cell Disease (DC) Forms: [facility] (Sierra Leonean) Print Language: ITALIAN - POA Present On Arrival: None - Clinical Impression Clinical Impression: Sickle cell crisis, Bug bites - Scribe Statement The provider has reviewed the documentation as recorded by the Rosa Sheets Provider Attestation: All medical record entries made by the Scribe were at my direction and personally dictated by me. I have reviewed the chart and agree that the record accurately reflects my personal performance of the history, physical exam, medical decision making, and the department course for this patient. I have also personally directed, reviewed, and agree with the discharge instructions and disposition.
[2017-12-16] MEDS ORDERED: Sodium Chloride 0.9% 1,000 ML IV ONE (08:18)
[2017-12-16 08:42] LABS: BASO # 0.1 K/uL (0.0-0.2); BASO % 0.9 % (0.0-2.0); EOS # 0.1 K/uL (0.0-0.7); EOS % 1.2 % (0.0-4.0); LYMPH # 2.8 K/uL (1.0-4.3); LYMPH % 24.5 % (20.0-40.0); MEAN CORPUSCULAR HEMOGLOBIN 38.4 pg (27.0-31.0); MEAN CORPUSCULAR HGB CONC 35.4 g/dL (33.0-37.0); MEAN PLATELET VOLUME 7.8 fL (7.2-11.7); MONO % 8.3 % (0.0-10.0); NEUT # 7.5 K/uL (1.8-7.0); NEUT % 65.1 % (50.0-75.0); RBC 2.09 Mil/uL (3.80-5.20); RED CELL DISTRIBUTION WIDTH 30.4 % (11.5-14.5); WHITE BLOOD COUNT 11.5 K/uL (4.8-10.8)
[2017-12-16] MEDS ORDERED: Sodium Chloride 0.9% 1,000 ML ONE (08:43)
[2017-12-16 08:50] LABS: MEAN CELL VOLUME 108.5 fL (81.0-99.0); SQUAMOUS EPITHIAL 14 /hpf (0-5); URINE BILIRUBIN NEGATIVE (NEGATIVE); URINE BLOOD NEGATIVE (NEGATIVE); URINE CLARITY Hazy (Clear); URINE COLOR Yellow (YELLOW); URINE GLUCOSE (UA) NORMAL (Normal); URINE LEUKOCYTE ESTERASE NEG Leu/uL (Negative); URINE PROTEIN NEGATIVE (NEGATIVE); URINE UROBILINOGEN NORMAL mg/dL (0.2-1.0)
[2017-12-16 08:51] LABS: HCG,QUALITATIVE URINE NEGATIVE (NEGATIVE)
[2017-12-16 09:02] LABS: ALB/GLOB RATIO 1.3 (1.0-2.1); ALT/SGPT 156 U/L (9-52); AST/SGOT 86 U/L (14-36); BLOOD UREA NITROGEN 8 mg/dL (7-17); CALCIUM 8.9 mg/dl (8.6-10.4); GFR AFRICAN-AMERICAN > 60; GFR NON-AFRICAN AMERICAN > 60
[2017-12-16 10:50] VITALS: BP 124/74; PULSE 101; RESP 20; TEMP 98.7
[2017-12-16 18:36] LABS: LYME IGG NEGATIVE (NEGATIVE)
[2017-12-16 18:39] LABS: LYME IGM NEGATIVE (NEGATIVE)
[2017-12-17 15:11] VITALS: O2SAT 96
== END 2017-12-16 10:48 | disposition home or self-care (01) ==
LOC: C.ER 07:57
DX: D57.00 Hb-SS disease with crisis, unspecified (principal); S80.862A Insect bite (nonvenomous), left lower leg, initial encounter; S80.861A Insect bite (nonvenomous), right lower leg, initial encounter; W57.XXXA Bitten or stung by nonvenomous insect and other nonvenomous arthropods, initial encounter
CPT/HCPCS: 80053; 81001; 84703; 85025; 85044; 86618; 96360; 99285; J7030

== ENCOUNTER 2017-12-29 14:13 | Observation (INO) | payer MEDICAID ==
[2017-12-29 14:13] VITALS: BMI 22.6
[2017-12-29] MEDS ORDERED: Sodium Chloride 0.9% 1,000 ML IV ONE (15:17)
--- NOTE | 2017-12-29 15:28 | C.PDOC ---
History Of Present Illness 32 y/o female with history of sickle cell disease presents to ED with c/o body pain and reports she is in crisis. Patient admits to face pain and requests pain medication for symptoms. Patient denies fever, chills, nausea, vomiting or any other complaints at this time. Time Seen by Provider: 12/29/17 14:33 Chief Complaint (Nursing): Weakness/Neurological Deficit History Per: Patient History/Exam Limitations: no limitations Onset/Duration Of Symptoms: Days Current Symptoms Are (Timing): Still Present Past Medical History Reviewed: Historical Data, Nursing Documentation, Vital Signs Vital Signs: Last Vital Signs Temp 98.1 F 12/29/17 14:41 Pulse 95 H 12/29/17 14:41 Resp 18 12/29/17 14:41 BP 97/62 L 12/29/17 14:41 Pulse Ox 93 L 12/29/17 15:34 - Medical History PMH: Anemia, Bronchitis, Gall Bladder Disease, Pneumonia, Sickle Cell Disease Surgical History: Cholecystectomy - [facility] Procedures INFLUENZA VACCINATION (03/16/12) INJECT/INFUSE ELECTROLYT (09/07/13) INJECT/INFUSE NEC (01/25/14) INSERT VAD RESERVOIR IN CHEST SUBCU/FASCIA, OPEN (05/31/17) INSERTION OF INFUSION DEV INTO SUP VENA CAVA, PERC APPROACH (01/25/17) NEBULIZER THERAPY (12/02/13) PACKED CELL TRANSFUSION (02/12/15) REMOVAL OF VAD FROM TRUNK SUBCU/FASCIA, OPEN APPROACH (04/15/16) TRANSFUSE NONAUT RED BLOOD CELLS IN PERIPH VEIN, PERC (09/14/17) VACCINATION NEC (08/22/13) Family History: States: No Known Family Hx - Social History Hx Tobacco Use: No Hx Alcohol Use: No Hx Substance Use: Yes - Immunization History Hx Tetanus Toxoid Vaccination: Yes Hx Influenza Vaccination: Yes (2016) Hx Pneumococcal Vaccination: Yes (2014) Review Of Systems Constitutional: Negative for: Fever, Chills Cardiovascular: Negative for: Chest Pain Respiratory: Negative for: Shortness of Breath Gastrointestinal: Negative for: Nausea, Vomiting Musculoskeletal: Positive for: Other (generalized body pain) Skin: Negative for: Rash Physical Exam - Physical Exam Appears: Non-toxic, No Acute Distress Skin: Warm, Dry, No Rash Head: Atraumatic, Normacephalic Eye(s): bilateral: Normal Inspection Oral Mucosa: Moist Neck: Normal ROM, Supple Cardiovascular: Rhythm Regular Respiratory: Normal Breath Sounds, No Rales, No Rhonchi, No Wheezing Gastrointestinal/Abdominal: Soft, No Tenderness, No Guarding, No Rebound Back: No CVA Tenderness Extremity: Normal ROM, Capillary Refill (<2 seconds) Neurological/Psych: Oriented x3, Normal Speech ED Course And Treatment - Laboratory Results Result Diagrams: 12/29/17 15:49 12/29/17 15:49 O2 Sat by Pulse Oximetry: 93 (RA) Disposition Discussed With : Patricio Escalante Doctor Will See Patient In The: Hospital - Disposition Disposition: HOSPITALIZED Disposition Time: 17:08 Condition: GUARDED Forms: [employer] ([place]) - Clinical Impression Clinical Impression: Sickle cell anemia with crisis - Scribe Statement The provider has reviewed the documentation as recorded by the Scribvalarie Rodriguez All medical record entries made by the Scribe were at my direction and personally dictated by me. I have reviewed the chart and agree that the record accurately reflects my personal performance of the history, physical exam, medical decision making, and the department course for this patient. I have also personally directed, reviewed, and agree with the discharge instructions and disposition. Decision To Admit - Pt Status Changed To: Hospital Disposition Of: Observation - . Bed Request Type: Regular Patient Diagnosis: Sickle cell anemia with crisis
[2017-12-29] MEDS ORDERED: Sodium Chloride 0.9% 1,000 ML ONE (15:34)
[2017-12-29 15:57] LABS: BASO # 0.2 K/uL (0.0-0.2); BASO % 1.2 % (0.0-2.0); EOS # 0.2 K/uL (0.0-0.7); EOS % 1.4 % (0.0-4.0); HEMOGLOBIN 7.3 g/dL (11.0-16.0); LYMPH # 3.8 K/uL (1.0-4.3); LYMPH % 25.1 % (20.0-40.0); MEAN CELL VOLUME 110.4 fL (81.0-99.0); MEAN CORPUSCULAR HEMOGLOBIN 38.2 pg (27.0-31.0); MEAN CORPUSCULAR HGB CONC 34.6 g/dL (33.0-37.0); MEAN PLATELET VOLUME 7.9 fL (7.2-11.7); MONO # 1.5 K/uL (0.0-0.8); MONO % 9.7 % (0.0-10.0); NEUT # 9.4 K/uL (1.8-7.0); NEUT % 62.6 % (50.0-75.0); NRBC % 1.5 % (0.0-2.0); RBC 1.91 Mil/uL (3.80-5.20); WHITE BLOOD COUNT 14.9 K/uL (4.8-10.8)
[2017-12-29 16:01] LABS: HCG,QUALITATIVE URINE NEGATIVE (NEGATIVE)
[2017-12-29 16:04] LABS: SQUAMOUS EPITHIAL < 1 /hpf (0-5); URINE BILIRUBIN NEGATIVE (NEGATIVE); URINE BLOOD NEGATIVE (NEGATIVE); URINE CLARITY Clear (Clear); URINE COLOR Yellow (YELLOW); URINE GLUCOSE (UA) NORMAL (Normal); URINE LEUKOCYTE ESTERASE NEG Leu/uL (Negative); URINE PROTEIN NEGATIVE (NEGATIVE)
[2017-12-29 16:21] LABS: BARBITURATES, UR NEGATIVE (NEGATIVE); BENZODIAZEPINES, UR NEGATIVE (NEGATIVE); PHENCYCLIDINE, UR NEGATIVE (NEGATIVE)
[2017-12-29 16:22] LABS: ALB/GLOB RATIO 1.5 (1.0-2.1); ALBUMIN 4.2 g/dL (3.5-5.0); ALT/SGPT 141 U/L (9-52); AST/SGOT 120 U/L (14-36); BLOOD UREA NITROGEN 10 mg/dL (7-17); CALCIUM 8.9 mg/dl (8.6-10.4); GFR AFRICAN-AMERICAN > 60; GFR NON-AFRICAN AMERICAN > 60; OPIATES, UR POSITIVE (NEGATIVE)
[2017-12-29] MEDS: Sodium Chloride 0.45% 1,000 ML IV SCH (21:18)
[2017-12-29] MEDS ORDERED: HYDROmorphone 0.5 mg/0.5 ml ISec IVP PRN (21:45)
[2017-12-29] MEDS: DiphenhydrAMINE 50 mg/ml Inj IVP PRN (22:02)
[2017-12-30] MEDS: Sodium Chloride 0.45% 1,000 ML IV SCH ×5 (04:10→23:30)
[2017-12-30] MEDS: DiphenhydrAMINE 50 mg/ml Inj IVP PRN ×3 (06:01→22:09)
[2017-12-30 08:06] LABS: BASO # 0.1 K/uL (0.0-0.2); BASO % 0.9 % (0.0-2.0); EOS # 0.4 K/uL (0.0-0.7); EOS % 2.9 % (0.0-4.0); LYMPH # 5.2 K/uL (1.0-4.3); LYMPH % 34.3 % (20.0-40.0); MEAN CELL VOLUME 109.5 fL (81.0-99.0); MEAN CORPUSCULAR HEMOGLOBIN 38.9 pg (27.0-31.0); MEAN CORPUSCULAR HGB CONC 35.5 g/dL (33.0-37.0); MEAN PLATELET VOLUME 8.4 fL (7.2-11.7); MONO # 1.8 K/uL (0.0-0.8); MONO % 12.2 % (0.0-10.0); NEUT # 7.5 K/uL (1.8-7.0); NEUT % 49.7 % (50.0-75.0); NRBC % 1.2 % (0.0-2.0); RBC 1.46 Mil/uL (3.80-5.20); RED CELL DISTRIBUTION WIDTH 28.8 % (11.5-14.5); WHITE BLOOD COUNT 15.1 K/uL (4.8-10.8)
[2017-12-30 08:09] LABS: HEMOGLOBIN 5.7 g/dL (11.0-16.0)
[2017-12-30] MEDS: Multivitamin With Minerals Tab PO SCH (08:17)
[2017-12-30] MEDS: Enoxaparin 40 mg Syringe SC SCH ×2 (10:19→10:24)
--- NOTE | 2017-12-30 16:33 | CP.PCM.HP ---
Past Patient History - Infectious Disease Hx of Infectious Diseases: None - Tetanus Immunizations Tetanus Immunization: Up to Date - Past Medical History & Family History Past Medical History?: Yes - Past Social History Smoking Status: Never Smoked - PULMONARY Hx Bronchitis: Yes Hx Pneumonia: Yes - HEENT Hx HEENT Problems: No - HEMATOLOGICAL/ONCOLOGICAL Hx Anemia: Yes Hx Sickle Cell Disease: Yes - INTEGUMENTARY Hx Dermatological Problems: No - GASTROINTESTINAL Hx Gall Bladder Disease: Yes - PSYCHIATRIC Hx Substance Use: Yes - SURGICAL HISTORY Hx Cholecystectomy: Yes - ANESTHESIA Hx Anesthesia: Yes Hx Anesthesia Reactions: No Hx Malignant Hyperthermia: No Meds Allergies/Adverse Reactions: Allergies Allergy/AdvReac Type Severity Reaction Status Date / Time FISH Allergy Severe RASH Verified 12/16/17 08:04 oxycodone Allergy Severe RASH Verified 12/16/17 08:04 tramadol Allergy Severe RASH Verified 12/16/17 08:04 ketorolac Allergy Intermediate RASH Verified 12/16/17 08:04 Results - Vital Signs Recent Vital Signs: Last Vital Signs Temp 98.8 F 12/30/17 15:51 Pulse 70 12/30/17 15:51 Resp 20 12/30/17 15:51 BP 102/65 12/30/17 15:51 Pulse Ox 95 12/30/17 07:00 - Labs Result Diagrams: 12/30/17 07:45 12/29/17 15:49 Labs: Laboratory Results - last 24 hr 12/30/17 12/30/17 07:45 11:12 WBC 15.1 H RBC 1.46 L Hgb 5.7 L* Hct 16.0 L MCV 109.5 H MCH 38.9 H MCHC 35.5 RDW 28.8 H Plt Count 274 MPV 8.4 Neut % (Auto) 49.7 L Lymph % (Auto) 34.3 [place] % (Auto) 12.2 H Eos % (Auto) 2.9 Baso % (Auto) 0.9 Neut # (Auto) 7.5 H Lymph # (Auto) 5.2 H [place] # (Auto) 1.8 H Eos # (Auto) 0.4 Baso # (Auto) 0.1 Blood Type A POSITIVE Antibody Screen Negative
[2017-12-30] MEDS: HYDROmorphone 1 mg/ml ISec IVP PRN ×2 (17:25→22:09)
[2017-12-30 20:40] VITALS: RESP 20
[2017-12-31] MEDS: HYDROmorphone 1 mg/ml ISec IVP PRN ×6 (02:06→22:10)
[2017-12-31] MEDS: Sodium Chloride 0.45% 1,000 ML IV SCH ×4 (03:05→19:10)
[2017-12-31] MEDS: DiphenhydrAMINE 50 mg/ml Inj IVP PRN ×3 (06:07→22:11)
[2017-12-31 07:42] LABS: BASO # 0.2 K/uL (0.0-0.2); BASO % 1.2 % (0.0-2.0); EOS # 0.5 K/uL (0.0-0.7); EOS % 3.5 % (0.0-4.0); LYMPH # 5.8 K/uL (1.0-4.3); LYMPH % 39.8 % (20.0-40.0); MEAN CORPUSCULAR HEMOGLOBIN 35.3 pg (27.0-31.0); MEAN CORPUSCULAR HGB CONC 35.7 g/dL (33.0-37.0); MEAN PLATELET VOLUME 9.1 fL (7.2-11.7); MONO # 1.4 K/uL (0.0-0.8); MONO % 9.4 % (0.0-10.0); NEUT # 6.7 K/uL (1.8-7.0); NEUT % 46.1 % (50.0-75.0); NRBC % 1.3 % (0.0-2.0); RBC 2.88 Mil/uL (3.80-5.20); RED CELL DISTRIBUTION WIDTH 26.1 % (11.5-14.5); WHITE BLOOD COUNT 14.5 K/uL (4.8-10.8)
[2017-12-31 07:43] LABS: BLOOD UREA NITROGEN 11 mg/dL (7-17); CALCIUM 8.8 mg/dl (8.6-10.4); GFR AFRICAN-AMERICAN > 60; GFR NON-AFRICAN AMERICAN > 60
[2017-12-31 07:44] LABS: HEMOGLOBIN 10.1 g/dL (11.0-16.0); MEAN CELL VOLUME 98.8 fL (81.0-99.0)
[2017-12-31] MEDS: Multivitamin With Minerals Tab PO SCH (08:20)
[2017-12-31] MEDS: Enoxaparin 40 mg Syringe SC SCH ×2 (09:37→10:00)
--- NOTE | 2017-12-31 19:11 | CP.PCM.CON ---
History of Present Illness - History of Present Illness History of Present Illness: 32 year old female with a history of sickle cell anemia admitted with sickle cell pain crisis. The patient reports to diffuse bone pain which she attributes to being exacerbated by the change in weather. Her pain was not controlled by her oral pain regimen and came to the hospital. In the ER she continued to have pain despite pain medication and was admitted for further pain control. She denies fevers, chills, headache, shortness of breath, and chest pain. Her pain is diffuse in nature and consistent with prior sickle cell pain crisis. Past medical history: Sickle cell anemia. Past surgical history: Cholecystectomy, splenectomy, portacatheter placement. Family history: Father and sister has SS disease, mother and brother have sickle cell trait. Social history: Denies tobacco, alcohol, and illicit drug use. Allergies: Oxycodone, ketorolac. Review of systems: All remaining review of systems including HEENT, cardiovascular, respiratory, gastrointestinal, genitourinary, musculoskeletal, dermatologic, and neurologic are negative unless mentioned in the HPI. Past Patient History - Infectious Disease Hx of Infectious Diseases: None - Tetanus Immunizations Tetanus Immunization: Up to Date - Past Medical History & Family History Past Medical History?: Yes - Past Social History Smoking Status: Never Smoked - PULMONARY Hx Bronchitis: Yes Hx Pneumonia: Yes - HEENT Hx HEENT Problems: No - HEMATOLOGICAL/ONCOLOGICAL Hx Anemia: Yes Hx Sickle Cell Disease: Yes - INTEGUMENTARY Hx Dermatological Problems: No - GASTROINTESTINAL Hx Gall Bladder Disease: Yes - PSYCHIATRIC Hx Substance Use: Yes - SURGICAL HISTORY Hx Cholecystectomy: Yes - ANESTHESIA Hx Anesthesia: Yes Hx Anesthesia Reactions: No Hx Malignant Hyperthermia: No Meds Allergies/Adverse Reactions: Allergies Allergy/AdvReac Type Severity Reaction Status Date / Time FISH Allergy Severe RASH Verified 12/16/17 08:04 oxycodone Allergy Severe RASH Verified 12/16/17 08:04 tramadol Allergy Severe RASH Verified 12/16/17 08:04 ketorolac Allergy Intermediate RASH Verified 12/16/17 08:04 - Medications Medications: Current Medications Diphenhydramine HCl (Benadryl) 25 mg IVP Q8 PRN PRN Reason: Anxiety Last Admin: 12/31/17 13:56 Dose: 25 mg Enoxaparin Sodium (Lovenox) 40 mg SC DAILY [facility] Last Admin: 12/31/17 10:00 Dose: 40 mg Famotidine (Pepcid) 20 mg PO DAILY [facility] Last Admin: 12/31/17 09:36 Dose: 20 mg Folic Acid (Folic Acid) 1 mg PO DAILY [facility] Last Admin: 12/31/17 09:36 Dose: 1 mg Hydromorphone HCl (Dilaudid) 2 mg IVP Q4H PRN PRN Reason: Pain, severe (8-10) Last Admin: 12/31/17 17:56 Dose: 2 mg Hydroxyurea (Hydrea) 500 mg PO DAILY [facility] Last Admin: 12/31/17 09:37 Dose: 500 mg Sodium Chloride (Sodium Chloride 0.45%) 1,000 mls @ 150 mls/hr IV .Q6H40M [facility] Last Admin: 12/31/17 12:11 Dose: 150 mls/hr Multivitamins/Minerals (Therapeutic-M Tab) 1 tab PO 0800 [facility] Last Admin: 12/31/17 08:20 Dose: 1 tab Physical Exam - Head Exam Head Exam: ATRAUMATIC - Eye Exam Eye Exam: Normal appearance - ENT Exam ENT Exam: Mucous Membranes Dry - Respiratory Exam Respiratory Exam: NORMAL BREATHING PATTERN - Cardiovascular Exam Cardiovascular Exam: +S1, +S2 - GI/Abdominal Exam GI & Abdominal Exam: Normal Bowel Sounds - Extremities Exam Extremities exam: Positive for: normal inspection - Neurological Exam Neurological exam: Oriented x3 - Psychiatric Exam Psychiatric exam: Normal Affect, Normal Mood - Skin Skin Exam: Warm Results - Vital Signs Recent Vital Signs: Last Vital Signs Temp 98.4 F 12/31/17 15:59 Pulse 77 12/31/17 15:59 Resp 20 12/31/17 15:59 BP 131/83 12/31/17 15:59 Pulse Ox 94 L 12/31/17 15:59 - Labs Result Diagrams: 12/31/17 07:05 12/31/17 07:05 Labs: Laboratory Results - last 24 hr 12/30/17 12/31/17 12/31/17 11:12 07:05 07:05 WBC 14.5 H RBC 2.88 L Hgb 10.1 L D Hct 28.4 L MCV 98.8 D MCH 35.3 H MCHC 35.7 RDW 26.1 H Plt Count 314 MPV 9.1 Neut % (Auto) 46.1 L Lymph % (Auto) 39.8 [place] % (Auto) 9.4 Eos % (Auto) 3.5 Baso % (Auto) 1.2 Neut # (Auto) 6.7 Lymph # (Auto) 5.8 H [place] # (Auto) 1.4 H Eos # (Auto) 0.5 Baso # (Auto) 0.2 Retic Count 16.4 H Sodium 137 Potassium 4.5 Chloride 103 Carbon Dioxide 26 Anion Gap 12 BUN 11 Creatinine 0.6 L Est GFR ( Amer) > 60 Est GFR (Non-Af Amer) > 60 Random Glucose 94 Calcium 8.8 Blood Type A POSITIVE Antibody Screen Negative Assessment & Plan (1) Sickle cell pain crisis Assessment and Plan: IV fluids, pain meds, folic acid, 02 via NC to receive 2U PRBC Status: Acute (2) Leukocytosis Assessment and Plan: likely reactive to sickle cell Status: Acute (3) Secondary hemochromatosis Assessment and Plan: outpatient chelation has not followed with me in the outpatient setting Status: Acute (4) Sickle cell anemia Assessment and Plan: folic acid and hydrea Thank you for this interesting consult. Status: Chronic
--- NOTE | 2017-12-31 19:12 | CP.PCM.PN ---
Subjective - Date & Time of Evaluation Date of Evaluation: 12/31/17 Time of Evaluation: 15:00 - Subjective Subjective: Feeling better after transfusion Objective - Vital Signs/Intake and Output Vital Signs (last 24 hours): Temp Pulse Resp BP Pulse Ox 98.4 F 77 20 131/83 94 L 12/31/17 15:59 12/31/17 15:59 12/31/17 15:59 12/31/17 15:59 12/31/17 15:59 Intake and Output: 12/31/17 01/01/18 18:59 06:59 Intake Total 3100 Balance 3100 - Medications Medications: Current Medications Diphenhydramine HCl (Benadryl) 25 mg IVP Q8 PRN PRN Reason: Anxiety Last Admin: 12/31/17 13:56 Dose: 25 mg Enoxaparin Sodium (Lovenox) 40 mg SC DAILY [facility] Last Admin: 12/31/17 10:00 Dose: 40 mg Famotidine (Pepcid) 20 mg PO DAILY [facility] Last Admin: 12/31/17 09:36 Dose: 20 mg Folic Acid (Folic Acid) 1 mg PO DAILY [facility] Last Admin: 12/31/17 09:36 Dose: 1 mg Hydromorphone HCl (Dilaudid) 2 mg IVP Q4H PRN PRN Reason: Pain, severe (8-10) Last Admin: 12/31/17 17:56 Dose: 2 mg Hydroxyurea (Hydrea) 500 mg PO DAILY [facility] Last Admin: 12/31/17 09:37 Dose: 500 mg Sodium Chloride (Sodium Chloride 0.45%) 1,000 mls @ 150 mls/hr IV .Q6H40M [facility] Last Admin: 12/31/17 19:10 Dose: 150 mls/hr Multivitamins/Minerals (Therapeutic-M Tab) 1 tab PO 0800 [facility] Last Admin: 12/31/17 08:20 Dose: 1 tab - Labs Labs: 12/31/17 07:05 12/31/17 07:05 - Head Exam Head Exam: ATRAUMATIC - Eye Exam Eye Exam: Normal appearance - ENT Exam ENT Exam: Mucous Membranes Dry - Respiratory Exam Respiratory Exam: NORMAL BREATHING PATTERN - Cardiovascular Exam Cardiovascular Exam: +S1, +S2 - GI/Abdominal Exam GI & Abdominal Exam: Normal Bowel Sounds Assessment and Plan (1) Sickle cell pain crisis Assessment & Plan: IV fluids, pain meds, folic acid, 02 via NC s/p 2U PRBC Status: Acute (2) Leukocytosis Assessment & Plan: likely reactive to sickle cell Status: Acute (3) Secondary hemochromatosis Assessment & Plan: secondary to transfusion minimize transfusion support not compliant with outpatient f/u and chelation Status: Acute (4) Sickle cell anemia Assessment & Plan: folic acid and hydrea Status: Chronic
--- NOTE | 2017-12-31 22:17 | CP.PCM.PN ---
Subjective - Date & Time of Evaluation Date of Evaluation: 12/31/17 Objective - Vital Signs/Intake and Output Vital Signs (last 24 hours): Temp Pulse Resp BP Pulse Ox 98.4 F 77 20 131/83 94 L 12/31/17 15:59 12/31/17 15:59 12/31/17 15:59 12/31/17 15:59 12/31/17 15:59 Intake and Output: 12/31/17 01/01/18 18:59 06:59 Intake Total 3100 Balance 3100 - Medications Medications: Current Medications Diphenhydramine HCl (Benadryl) 25 mg IVP Q8 PRN PRN Reason: Anxiety Last Admin: 12/31/17 22:11 Dose: 25 mg Enoxaparin Sodium (Lovenox) 40 mg SC DAILY [facility] Last Admin: 12/31/17 10:00 Dose: 40 mg Famotidine (Pepcid) 20 mg PO DAILY [facility] Last Admin: 12/31/17 09:36 Dose: 20 mg Folic Acid (Folic Acid) 1 mg PO DAILY [facility] Last Admin: 12/31/17 09:36 Dose: 1 mg Hydromorphone HCl (Dilaudid) 2 mg IVP Q4H PRN PRN Reason: Pain, severe (8-10) Last Admin: 12/31/17 22:10 Dose: 2 mg Hydroxyurea (Hydrea) 500 mg PO DAILY [facility] Last Admin: 12/31/17 09:37 Dose: 500 mg Sodium Chloride (Sodium Chloride 0.45%) 1,000 mls @ 150 mls/hr IV .Q6H40M [facility] Last Admin: 12/31/17 19:10 Dose: 150 mls/hr Multivitamins/Minerals (Therapeutic-M Tab) 1 tab PO 0800 [facility] Last Admin: 12/31/17 08:20 Dose: 1 tab - Labs Labs: 12/31/17 07:05 12/31/17 07:05
[2018-01-01] MEDS: HYDROmorphone 1 mg/ml ISec IVP PRN ×5 (02:10→18:01)
[2018-01-01] MEDS: Sodium Chloride 0.45% 1,000 ML IV SCH ×3 (02:12→17:10)
[2018-01-01] MEDS: DiphenhydrAMINE 50 mg/ml Inj IVP PRN ×2 (06:09→14:04)
--- NOTE | 2018-01-01 07:33 | CP.PCM.PN ---
Subjective - Date & Time of Evaluation Date of Evaluation: 01/01/18 Time of Evaluation: 07:10 - Subjective Subjective: PGY-[address] Louis's service Pt seen and examined at bedside. Nursing reports no acute events overnight. Patient found resting comfortably at bedside. Admits "feeling much better" s/p 2 units PRBCs on 12/30, but complains of "whole body aches/pains." Pain improved from 10/10 to 7/10 after dilaudid. Denies chest pain, palpitations, SOB, fever, chills, or abd pain. Objective - Vital Signs/Intake and Output Vital Signs (last 24 hours): Temp Pulse Resp BP Pulse Ox 98.9 F 78 20 126/80 97 12/31/17 23:17 12/31/17 23:17 12/31/17 23:17 12/31/17 23:17 01/01/18 05:30 - Medications Medications: Current Medications Diphenhydramine HCl (Benadryl) 25 mg IVP Q8 PRN PRN Reason: Anxiety Last Admin: 01/01/18 06:09 Dose: 25 mg Enoxaparin Sodium (Lovenox) 40 mg SC DAILY [facility] Last Admin: 12/31/17 10:00 Dose: 40 mg Famotidine (Pepcid) 20 mg PO DAILY [facility] Last Admin: 12/31/17 09:36 Dose: 20 mg Folic Acid (Folic Acid) 1 mg PO DAILY [facility] Last Admin: 12/31/17 09:36 Dose: 1 mg Hydromorphone HCl (Dilaudid) 2 mg IVP Q4H PRN PRN Reason: Pain, severe (8-10) Last Admin: 01/01/18 06:10 Dose: 2 mg Hydroxyurea (Hydrea) 500 mg PO DAILY [facility] Last Admin: 12/31/17 09:37 Dose: 500 mg Sodium Chloride (Sodium Chloride 0.45%) 1,000 mls @ 150 mls/hr IV .Q6H40M [facility] Last Admin: 01/01/18 02:12 Dose: 150 mls/hr Multivitamins/Minerals (Therapeutic-M Tab) 1 tab PO 0800 [facility] Last Admin: 12/31/17 08:20 Dose: 1 tab - Labs Labs: 12/31/17 07:05 12/31/17 07:05 - Additional Findings Additional findings: - Additional Findings Additional findings: - Constitutional Appears: Non-toxic, No Acute Distress - Head Exam Head Exam: ATRAUMATIC, NORMAL INSPECTION - Eye Exam Eye Exam: EOMI Pupil Exam: NORMAL ACCOMODATION - ENT Exam ENT Exam: Mucous Membranes Moist - Respiratory Exam Respiratory Exam: Clear to Ausculation Bilateral, NORMAL BREATHING PATTERN. absent: Respiratory Distress - Cardiovascular Exam Cardiovascular Exam: REGULAR RHYTHM, +S1, +S2 - GI/Abdominal Exam GI & Abdominal Exam: Soft, Normal Bowel Sounds. absent: Distended, Firm, Guarding, Tenderness - Extremities Exam Extremities Exam: Normal Inspection - Back Exam Back Exam: NORMAL INSPECTION. absent: CVA tenderness (L), CVA tenderness (R), paraspinal tenderness - Neurological Exam Neurological Exam: Alert, Awake, CN II-XII Intact, Normal Gait, Oriented x3 - Psychiatric Exam Psychiatric exam: Calm Assessment and Plan - Assessment and Plan (Free Text) Plan: Sickle Cell pain crisis Admit to med surg - On admission, Hgb was 7.3; Retic Ct 20.2 - Hgb 10.1 (12/31); s/p transfusion of 2 unit PRBCs on (12/30) - Continue pain management with Dilaudid 2 mg IV q4h PRN - Benadryl 25 mg IVP q3 prn. - Folic Acid 1mg PO daily - Hydroxyurea 500mg PO Daily - NS @ 150 cc/hr Heme/onc, Dr. Portillo is consulted - not compliant w outpatient chelation Transaminitis/Elevated T bili (12/31/17) AST/ALT 123/155, T bili 4.1 - Continue NS IV hydration @ 150 cc/hr - Recent hepatitis panel in 08/15/17 was negative Prophylaxis - Lovenox 40mg SC daily - SCD - Pepcid 20mg PO Daily - Regular diet Jose Serrano PGY-[address] Louis
[2018-01-01] MEDS: Multivitamin With Minerals Tab PO SCH (08:34)
[2018-01-01] MEDS: Enoxaparin 40 mg Syringe SC SCH ×2 (09:53→10:00)
[2018-01-01 10:35] VITALS: O2SAT 95
--- NOTE | 2018-01-01 12:42 | CP.PCM.PN ---
Subjective - Date & Time of Evaluation Date of Evaluation: 01/01/18 Time of Evaluation: 11:20 - Subjective Subjective: Feels achy but better since blood transfusion Objective - Vital Signs/Intake and Output Vital Signs (last 24 hours): Temp Pulse Resp BP Pulse Ox 99.0 F 63 20 107/90 95 01/01/18 09:00 01/01/18 09:00 01/01/18 09:00 01/01/18 09:00 01/01/18 09:00 - Medications Medications: Current Medications Diphenhydramine HCl (Benadryl) 25 mg IVP Q8 PRN PRN Reason: Anxiety Last Admin: 01/01/18 06:09 Dose: 25 mg Enoxaparin Sodium (Lovenox) 40 mg SC DAILY [facility] Last Admin: 01/01/18 10:00 Dose: Not Given Famotidine (Pepcid) 20 mg PO DAILY [facility] Last Admin: 01/01/18 09:54 Dose: 20 mg Folic Acid (Folic Acid) 1 mg PO DAILY [facility] Last Admin: 01/01/18 09:53 Dose: 1 mg Hydromorphone HCl (Dilaudid) 2 mg IVP Q4H PRN PRN Reason: Pain, severe (8-10) Last Admin: 01/01/18 10:01 Dose: 2 mg Hydroxyurea (Hydrea) 500 mg PO DAILY [facility] Last Admin: 01/01/18 09:53 Dose: 500 mg Sodium Chloride (Sodium Chloride 0.45%) 1,000 mls @ 150 mls/hr IV .Q6H40M [facility] Last Admin: 01/01/18 08:38 Dose: 150 mls/hr Multivitamins/Minerals (Therapeutic-M Tab) 1 tab PO 0800 [facility] Last Admin: 01/01/18 08:34 Dose: 1 tab - Labs Labs: 12/31/17 07:05 12/31/17 07:05 - Head Exam Head Exam: ATRAUMATIC - Eye Exam Eye Exam: Normal appearance - ENT Exam ENT Exam: Mucous Membranes Dry - Respiratory Exam Respiratory Exam: NORMAL BREATHING PATTERN - Cardiovascular Exam Cardiovascular Exam: +S1, +S2 - GI/Abdominal Exam GI & Abdominal Exam: Normal Bowel Sounds - Extremities Exam Extremities Exam: Normal Inspection Assessment and Plan (1) Sickle cell pain crisis Assessment & Plan: IV fluids, pain meds, folic acid, 02 via NC s/p 2U PRBC Status: Acute (2) Leukocytosis Assessment & Plan: reactive from sickle cell Status: Acute (3) Secondary hemochromatosis Assessment & Plan: secondary to transfusions minimize transfusion support noncompliant with outpatient chelation Status: Acute (4) Sickle cell anemia Assessment & Plan: folic acid and hydrea Status: Chronic
[2018-01-01 16:48] VITALS: BP 127/86; PULSE 73; TEMP 98.2
== END 2018-01-01 19:13 | disposition home or self-care (01) ==
LOC: C.ER 14:13 → C.9E 17:08 → C.3T 18:57
PROVIDERS: ADMIT Internal Medicine Nephrology; ATTEND Internal Medicine Nephrology
DX: D57.00 Hb-SS disease with crisis, unspecified (principal); Z83.2 Family history of diseases of the blood and blood-forming organs and certain disorders involving the immune mechanism
CPT/HCPCS: 36415; 36430; 80048; 80053; 80324; 80345; 80346; 80349; 80353; 80358; 80361; 81001; 83992; 84703; 85025; 85044; 86850; 86900; 86920; 96361; 96372; 96374; 96375; 96376; 99285; G0378; J1170; J1200; J1642; J1650; J2405; J7030; P9051

== ENCOUNTER 2018-01-26 18:04 | Emergency (ER) | payer MEDICAID ==
[2018-01-26 18:05] VITALS: BMI 22.6
[2018-01-26 18:12] VITALS: O2SAT 97
[2018-01-26 18:59] LABS: SQUAMOUS EPITHIAL 4 /hpf (0-5); URINE BACTERIA RARE (<OCC); URINE BILIRUBIN NEGATIVE (NEGATIVE); URINE BLOOD NEGATIVE (NEGATIVE); URINE CLARITY Clear (Clear); URINE COLOR Yellow (YELLOW); URINE GLUCOSE (UA) NORMAL (Normal); URINE LEUKOCYTE ESTERASE NEG Leu/uL (Negative); URINE PROTEIN NEGATIVE (NEGATIVE)
[2018-01-26 19:01] LABS: HCG,QUALITATIVE URINE NEGATIVE (NEGATIVE)
[2018-01-26] MEDS ORDERED: Dextrose 5%/0.45% NS 1,000 ML IV ONE ×2 (19:27→19:57)
[2018-01-26] MEDS ORDERED: DiphenhydrAMINE 50 mg/ml Inj IVP STA (19:31)
[2018-01-26 19:48] LABS: BASO # 0.1 K/uL (0.0-0.2); BASO % 0.6 % (0.0-2.0); EOS # 0.4 K/uL (0.0-0.7); EOS % 2.3 % (0.0-4.0); HEMOGLOBIN 7.7 g/dL (11.0-16.0); LYMPH # 6.4 K/uL (1.0-4.3); MEAN CELL VOLUME 99.1 fL (81.0-99.0); MEAN CORPUSCULAR HEMOGLOBIN 35.1 pg (27.0-31.0); MEAN CORPUSCULAR HGB CONC 35.5 g/dL (33.0-37.0); MEAN PLATELET VOLUME 7.9 fL (7.2-11.7); MONO # 1.4 K/uL (0.0-0.8); MONO % 8.4 % (0.0-10.0); NEUT # 8.5 K/uL (1.8-7.0); NEUT % 50.7 % (50.0-75.0); NRBC % 0.5 % (0.0-2.0); RBC 2.18 Mil/uL (3.80-5.20); RED CELL DISTRIBUTION WIDTH 25.2 % (11.5-14.5); WHITE BLOOD COUNT 16.9 K/uL (4.8-10.8)
[2018-01-26] MEDS ORDERED: DiphenhydrAMINE 50 mg/ml Inj ONE (19:57)
[2018-01-26 20:10] LABS: ALB/GLOB RATIO 1.4 (1.0-2.1); ALBUMIN 4.3 g/dL (3.5-5.0); ALT/SGPT 125 U/L (9-52); AST/SGOT 81 U/L (14-36); BLOOD UREA NITROGEN 18 mg/dL (7-17); CALCIUM 9.4 mg/dl (8.6-10.4); GFR AFRICAN-AMERICAN > 60; GFR NON-AFRICAN AMERICAN > 60; LIPASE 67 U/L (23-300)
[2018-01-26 21:17] VITALS: RESP 17
--- NOTE | 2018-01-26 21:52 | C.PDOC ---
History Of Present Illness Pt c/o exacerbation of her Sickle Cell pain. Time Seen by Provider: 01/26/18 18:36 Chief Complaint (Nursing): Pain, Chronic History Per: Patient Onset/Duration Of Symptoms: Days (3) Current Symptoms Are (Timing): Still Present Severity: Moderate Context: Sickle Cell Disease Location: Generalized Quality: Pain Reports Similar Symptoms Of: Sickle Cell pain Reports Recent Trauma: Denies Recent travel outside of the [place]: No Additional History Per: Prior Records Past Medical History Reviewed: Historical Data, Nursing Documentation, Vital Signs Vital Signs: Last Vital Signs Temp 98.4 F 01/26/18 21:16 Pulse 84 01/26/18 21:16 Resp 17 01/26/18 21:16 BP 112/66 01/26/18 21:16 Pulse Ox 97 01/26/18 21:59 - Medical History PMH: Anemia, Bronchitis, Gall Bladder Disease, Pneumonia, Sickle Cell Disease Surgical History: Cholecystectomy - [facility] Procedures INFLUENZA VACCINATION (03/16/12) INJECT/INFUSE ELECTROLYT (09/07/13) INJECT/INFUSE NEC (01/25/14) INSERT VAD RESERVOIR IN CHEST SUBCU/FASCIA, OPEN (05/31/17) INSERTION OF INFUSION DEV INTO SUP VENA CAVA, PERC APPROACH (01/25/17) NEBULIZER THERAPY (12/02/13) PACKED CELL TRANSFUSION (02/12/15) REMOVAL OF VAD FROM TRUNK SUBCU/FASCIA, OPEN APPROACH (04/15/16) TRANSFUSE NONAUT RED BLOOD CELLS IN PERIPH VEIN, PERC (09/14/17) VACCINATION NEC (08/22/13) Family History: States: Unknown Family Hx - Social History Hx Tobacco Use: No Hx Alcohol Use: No Hx Substance Use: Yes - Immunization History Hx Tetanus Toxoid Vaccination: Yes Hx Influenza Vaccination: Yes (2016) Hx Pneumococcal Vaccination: Yes (2014) Review Of Systems Except As Marked, All Systems Reviewed And Found Negative. Constitutional: Negative for: Fever, Chills Cardiovascular: Negative for: Chest Pain Respiratory: Negative for: Shortness of Breath, Hemoptysis Gastrointestinal: Positive for: Abdominal Pain. Negative for: Vomiting, Diarrhea Musculoskeletal: Positive for: Back Pain. Negative for: Neck Pain Neurological: Negative for: Weakness, Numbness, Seizures, Altered Mental Status , Headache Physical Exam - Physical Exam Appears: Non-toxic, No Acute Distress, Chronically Ill Skin: Warm, Dry Head: Atraumatic Eye(s): bilateral: PERRL, EOMI Neck: Normal ROM, Supple Chest: Other (Mediport in right chest wall) Cardiovascular: Rhythm Regular Respiratory: Normal Breath Sounds, No Accessory Muscle Use Gastrointestinal/Abdominal: Soft, Tenderness (nonspecific), No Distention, No Guarding, No Rebound Back: No CVA Tenderness, No Vertebral Tenderness Extremity: Normal ROM, No Deformity Neurological/Psych: Oriented x3, Normal Speech, Normal Cognition, Normal Motor, Normal Sensation ED Course And Treatment - Laboratory Results Result Diagrams: 01/26/18 19:43 01/26/18 19:43 Lab Interpretation: No Changes Compared To Prior Results Urine POC: Negative O2 Sat by Pulse Oximetry: 97 Pulse Ox Interpretation: Normal Progress Note: Pt feels much better and wants to go home. Reassessment Condition: Improved Progress - Interventions Interventions:: Observation, Intravenous fluid - Medications Administered Oral: Opiate Intravenous: Antiemetic, Antihistamine (H-1), H-2 mylene - Data Reviewed Data Reviewed: Lab, Old records - Patient Status Patient status: Mostly improved - Continuity of Care Discussed patient case with:: Patient, ED Nurse - Patient Plan Patient Plan: Discharge, F/U with PCP, Continue present meds Disposition Counseled Patient/Family Regarding: Studies Performed, Diagnosis, Need For Followup - Disposition Referrals: Enzo Louis MD [Staff Provider] - Disposition: HOME/ ROUTINE Disposition Time: 22:04 Condition: IMPROVED Additional Instructions: Follow up with your doctor this week. Return to the ER if you develop fever, dizziness, vomiting, shortness of breath, worsening of symptoms or if you have any other concerns. Instructions: Sickle Cell Disease (DC) Forms: [facility] (Armenian) - Clinical Impression Clinical Impression: Sickle cell anemia with pain
[2018-01-26 22:16] VITALS: BP 105/61; PULSE 98; TEMP 98.8
== END 2018-01-26 22:15 | disposition home or self-care (01) ==
LOC: C.ER 18:04
DX: D57.00 Hb-SS disease with crisis, unspecified (principal)
CPT/HCPCS: 80053; 81001; 83615; 83690; 84703; 85025; 85044; 86140; 96361; 96374; 96375; 99285; J1200; J2765; J7042

== ENCOUNTER 2018-01-30 09:22 | Emergency (ER) | payer MEDICAID ==
[2018-01-30 09:22] VITALS: BMI 22.6
[2018-01-30 09:29] VITALS: PULSE 90
--- NOTE | 2018-01-30 09:44 | C.PDOC ---
History Of Present Illness 32 y/o female, with PMHx of sickle cell disease, presents to ED for evaluation of exacerbation of chronic body pain. Patient is well known to ED for multiple prior visits for similar symptoms. She complains of right rib cage pain that is worse with movement. Otherwise, denies shortness of breath, palpitations, trauma , n/v, headache, cough, fever, or any other associated symptoms at this time. Time Seen by Provider: 01/30/18 09:44 Chief Complaint (Nursing): Abdominal Pain History Per: Patient History/Exam Limitations: no limitations Onset/Duration Of Symptoms: Days Current Symptoms Are (Timing): Still Present Quality Of Discomfort: "Pain" Exacerbating Factors: None Alleviating Factors: None Recent travel outside of the [place]: No Additional History Per: Patient Past Medical History Reviewed: Historical Data, Nursing Documentation, Vital Signs Vital Signs: Last Vital Signs Temp 98.6 F 01/30/18 11:59 Pulse 90 01/30/18 11:59 Resp 16 01/30/18 11:59 BP 117/72 01/30/18 11:59 Pulse Ox 98 01/30/18 12:51 - Medical History PMH: Anemia, Bronchitis, Gall Bladder Disease, Pneumonia, Sickle Cell Disease Surgical History: Cholecystectomy - [facility] Procedures INFLUENZA VACCINATION (03/16/12) INJECT/INFUSE ELECTROLYT (09/07/13) INJECT/INFUSE NEC (01/25/14) INSERT VAD RESERVOIR IN CHEST SUBCU/FASCIA, OPEN (05/31/17) INSERTION OF INFUSION DEV INTO SUP VENA CAVA, PERC APPROACH (01/25/17) NEBULIZER THERAPY (12/02/13) PACKED CELL TRANSFUSION (02/12/15) REMOVAL OF VAD FROM TRUNK SUBCU/FASCIA, OPEN APPROACH (04/15/16) TRANSFUSE NONAUT RED BLOOD CELLS IN PERIPH VEIN, PERC (09/14/17) VACCINATION NEC (08/22/13) Family History: States: Unknown Family Hx - Social History Hx Tobacco Use: No Hx Alcohol Use: No Hx Substance Use: Yes - Immunization History Hx Tetanus Toxoid Vaccination: Yes Hx Influenza Vaccination: Yes (2016) Hx Pneumococcal Vaccination: Yes (2014) Review Of Systems Except As Marked, All Systems Reviewed And Found Negative. Constitutional: Positive for: Other (body pain). Negative for: Fever, Chills Cardiovascular: Negative for: Palpitations Respiratory: Negative for: Cough, Shortness of Breath Gastrointestinal: Negative for: Nausea, Vomiting Musculoskeletal: Positive for: Other (Right rib cage pain) Neurological: Negative for: Weakness, Numbness, Headache Physical Exam - Physical Exam Appears: Non-toxic, No Acute Distress Skin: Normal Color, Warm, Dry Head: Atraumatic, Normacephalic Eye(s): bilateral: Normal Inspection, EOMI Nose: Normal Oral Mucosa: Moist Neck: Normal ROM, Supple Chest: Symmetrical, Tenderness (reproducible tenderness to right lateral chest wall), Other (port to right chest wall) Cardiovascular: Rhythm Regular Respiratory: Normal Breath Sounds, No Rales, No Rhonchi, No Wheezing Gastrointestinal/Abdominal: Soft, No Tenderness Back: No CVA Tenderness Extremity: Normal ROM Neurological/Psych: Oriented x3, Normal Speech ED Course And Treatment - Laboratory Results Result Diagrams: 01/30/18 11:12 01/30/18 11:12 O2 Sat by Pulse Oximetry: 98 (RA) Pulse Ox Interpretation: Normal - Other Rad CXR X-Ray: Viewed By Me, Read By Radiologist Interpretation: Findings: Right chest wall port with tip extending to the cavoatrial junction. No focal infiltrate or effusion. Right hilar prominence. Bibasilar breast and nipple shadows. Heart size within normal limits. Degenerative changes in the spine. Surgical clips in the upper abdomen. Impression: Right chest wall port with tip extending to the cavoatrial junction. No focal infiltrate or effusion. Right hilar prominence. Bibasilar breast and nipple shadows. Progress Note: Blood work, Urinalysis, CXR ordered and reviewed. Pt was given Dilaudid and Reglan. Lab results reviewed, anemia noted to be at baseline, WBC and retic count decreased in comparison to 01/26/18 results. On re-eval, pt is resting comfortably, no acute distress. She reports feeling better, with improvement of pain. She does not need additional pain medications. Vital signs normal. Pt is being discharged home with instructions to follow up with PMD in 1 -3 days for further evaluation. Discussed return precautions. Disposition - Disposition Disposition: HOME/ ROUTINE Disposition Time: 11:44 Condition: STABLE Additional Instructions: Follow up with your doctor in 1-2 days. Return to ER if symptoms persist or worsen. Instructions: Sickle Cell Disease (DC) Forms: [employer] (Ukrainian) - Clinical Impression Clinical Impression: Sickle cell disease, Chronic pain - PA / TICKET COUNTER / Resident Statement MD/DO has reviewed & agrees with the documentation as recorded. - Scribe Statement The provider has reviewed the documentation as recorded by the Scribe JIM All medical record entries made by the Scribe were at my direction and personally dictated by me. I have reviewed the chart and agree that the record accurately reflects my personal performance of the history, physical exam, medical decision making, and the department course for this patient. I have also personally directed, reviewed, and agree with the discharge instructions and disposition.
--- NOTE | 2018-01-30 10:49 | RAD ---
Chest x-ray two views History: Shortness of breath. Comparison: None available. Findings: Right chest wall port with tip extending to the cavoatrial junction. No focal infiltrate or effusion. Right hilar prominence. Bibasilar breast and nipple shadows. Heart size within normal limits. Degenerative changes in the spine. Surgical clips in the upper abdomen. Impression: Right chest wall port with tip extending to the cavoatrial junction. No focal infiltrate or effusion. Right hilar prominence. Bibasilar breast and nipple shadows.
[2018-01-30 11:17] LABS: BASO # 0.1 K/uL (0.0-0.2); BASO % 0.8 % (0.0-2.0); EOS # 0.3 K/uL (0.0-0.7); EOS % 2.1 % (0.0-4.0); HEMOGLOBIN 7.5 g/dL (11.0-16.0); LYMPH # 6.4 K/uL (1.0-4.3); LYMPH % 42.8 % (20.0-40.0); MEAN CELL VOLUME 97.4 fL (81.0-99.0); MEAN CORPUSCULAR HEMOGLOBIN 33.7 pg (27.0-31.0); MEAN CORPUSCULAR HGB CONC 34.6 g/dL (33.0-37.0); MEAN PLATELET VOLUME 8.4 fL (7.2-11.7); MONO # 1.3 K/uL (0.0-0.8); MONO % 8.7 % (0.0-10.0); NEUT # 6.8 K/uL (1.8-7.0); NEUT % 45.6 % (50.0-75.0); NRBC % 0.5 % (0.0-2.0); RBC 2.24 Mil/uL (3.80-5.20)
[2018-01-30 11:22] LABS: SQUAMOUS EPITHIAL 4 /hpf (0-5); URINE BILIRUBIN NEGATIVE (NEGATIVE); URINE BLOOD NEGATIVE (NEGATIVE); URINE CLARITY Clear (Clear); URINE COLOR Yellow (YELLOW); URINE GLUCOSE (UA) NORMAL (Normal); URINE LEUKOCYTE ESTERASE NEG Leu/uL (Negative); URINE PROTEIN NEGATIVE (NEGATIVE)
[2018-01-30 11:23] LABS: HCG,QUALITATIVE URINE NEGATIVE (NEGATIVE)
[2018-01-30 11:32] LABS: ALB/GLOB RATIO 1.6 (1.0-2.1); ALBUMIN 4.1 g/dL (3.5-5.0); ALT/SGPT 124 U/L (9-52); AST/SGOT 86 U/L (14-36); BLOOD UREA NITROGEN 10 mg/dL (7-17); GFR AFRICAN-AMERICAN > 60; GFR NON-AFRICAN AMERICAN > 60; LIPASE 36 U/L (23-300)
[2018-01-30 12:00] VITALS: BP 117/72; RESP 16; TEMP 98.6
[2018-01-30 12:51] VITALS: O2SAT 98
== END 2018-01-30 12:00 | disposition home or self-care (01) ==
LOC: C.ER 09:22
DX: D57.1 Sickle-cell disease without crisis (principal); G89.29 Other chronic pain

== ENCOUNTER 2018-02-04 07:46 | Emergency (ER) | payer MEDICAID ==
[2018-02-04 07:46] VITALS: BMI 22.6
[2018-02-04] MEDS ORDERED: Sodium Chloride 0.9% 1,000 ML IV STA (08:21)
[2018-02-04] MEDS ORDERED: Sodium Chloride 0.9% 1,000 ML ONE (08:35)
--- NOTE | 2018-02-04 08:37 | RAD ---
Chest x-ray single frontal view History: Infiltrate. Comparison: 11/02/2017 Findings: Right chest wall port with tip extending to the cavoatrial junction. No focal infiltrate or effusion. Heart size within normal limits. Impression No focal infiltrate or effusion.
[2018-02-04 09:00] LABS: HEMOGLOBIN 7.5 g/dL (11.0-16.0); MEAN CELL VOLUME 97.6 fL (81.0-99.0); MEAN CORPUSCULAR HEMOGLOBIN 34.7 pg (27.0-31.0); MEAN CORPUSCULAR HGB CONC 35.5 g/dL (33.0-37.0); MEAN PLATELET VOLUME 7.9 fL (7.2-11.7); RBC 2.15 Mil/uL (3.80-5.20); RED CELL DISTRIBUTION WIDTH 25.2 % (11.5-14.5); WHITE BLOOD COUNT 13.7 K/uL (4.8-10.8)
[2018-02-04 09:08] LABS: ALB/GLOB RATIO 1.4 (1.0-2.1)
[2018-02-04 09:09] LABS: ALBUMIN 4.1 g/dL (3.5-5.0); ALT/SGPT 105 U/L (9-52); AST/SGOT 73 U/L (14-36); BLOOD UREA NITROGEN 9 mg/dL (7-17); CALCIUM 9.3 mg/dl (8.6-10.4); GFR NON-AFRICAN AMERICAN > 60
[2018-02-04 09:50] VITALS: RESP 17
[2018-02-04 10:33] VITALS: BP 140/86; PULSE 93; TEMP 98.3; O2SAT 100
--- NOTE | 2018-02-04 10:33 | C.PDOC ---
History Of Present Illness 32 year old female patient presents to the ER with c/o sickle cell pain. Patient reports she made an appointment today with her underground utility locator. Patient notes her underground utility locator is the person who prescribes her pain medications. Patient denies fever, chills, cough, chest pain and SOB. Time Seen by Provider: 02/04/18 07:54 Chief Complaint (Nursing): Pain, Chronic History Per: Patient History/Exam Limitations: no limitations Onset/Duration Of Symptoms: Hrs Current Symptoms Are (Timing): Still Present Past Medical History Reviewed: Historical Data, Nursing Documentation, Vital Signs Vital Signs: Last Vital Signs Temp 98.3 F 02/04/18 10:26 Pulse 93 H 02/04/18 10:26 Resp 17 02/04/18 10:26 BP 140/86 02/04/18 10:26 Pulse Ox 100 02/04/18 10:44 - Medical History PMH: Anemia, Bronchitis, Gall Bladder Disease, Pneumonia, Sickle Cell Disease Surgical History: Cholecystectomy - [facility] Procedures INFLUENZA VACCINATION (03/16/12) INJECT/INFUSE ELECTROLYT (09/07/13) INJECT/INFUSE NEC (01/25/14) INSERT VAD RESERVOIR IN CHEST SUBCU/FASCIA, OPEN (05/31/17) INSERTION OF INFUSION DEV INTO SUP VENA CAVA, PERC APPROACH (01/25/17) NEBULIZER THERAPY (12/02/13) PACKED CELL TRANSFUSION (02/12/15) REMOVAL OF VAD FROM TRUNK SUBCU/FASCIA, OPEN APPROACH (04/15/16) TRANSFUSE NONAUT RED BLOOD CELLS IN PERIPH VEIN, PERC (09/14/17) VACCINATION NEC (08/22/13) Family History: States: Unknown Family Hx - Social History Hx Tobacco Use: No Hx Alcohol Use: No Hx Substance Use: Yes - Immunization History Hx Tetanus Toxoid Vaccination: Yes Hx Influenza Vaccination: Yes (2016) Hx Pneumococcal Vaccination: Yes (2014) Review Of Systems Except As Marked, All Systems Reviewed And Found Negative. Constitutional: Negative for: Fever, Chills Cardiovascular: Negative for: Chest Pain Respiratory: Negative for: Cough, Shortness of Breath Musculoskeletal: Positive for: Other (sickle cell pain) Physical Exam - Physical Exam Appears: Well, Non-toxic, No Acute Distress Skin: Normal Color, Warm, Dry Head: Atraumatic, Normacephalic Eye(s): bilateral: Normal Inspection Oral Mucosa: Moist Throat: Normal Neck: Normal ROM, Supple Chest: Symmetrical, No Deformity, Other (port ) Cardiovascular: Rhythm Regular Respiratory: Normal Breath Sounds Gastrointestinal/Abdominal: Soft, No Tenderness Back: No CVA Tenderness Extremity: Normal ROM (x4) Neurological/Psych: Oriented x3, Normal Speech Gait: Steady ED Course And Treatment - Laboratory Results Result Diagrams: 02/04/18 08:49 02/04/18 08:49 O2 Sat by Pulse Oximetry: 100 (RA) Pulse Ox Interpretation: Normal - Other Rad CXR X-Ray: Read By Radiologist Interpretation: Accession No. : [id number]. Patient Name / ID : JACK SEGURA / [id number]. Exam Date : 02/04/2018 08:25:11 ( Approved ). Study Comment : Sex / Age : F / 32Y. Creator : Pilo Padilla MD. Dictator : Pilo Padilla MD. Noise Tester : Collet Driller : Pilo Padilla MD. Approver2 : Report Date : 02/04/2018 08:36:19. My Comment : . Chest x- ray single frontal view. History: Infiltrate. Comparison: 11/02/2017. Findings: Right chest wall port with tip extending to the cavoatrial junction. No focal infiltrate or effusion. Heart size within normal limits. Impression. No focal infiltrate or effusion. Medical Decision Making Medical Decision Making: Impression: sickle cell pain Plans: -- blood work -- CXR -- Benadryl -- Dilaudid -- Reglan -- IV fluids Reassess: Patient is resting comfortable. Tolerating PO. Patient is instructed to go through with her appointment with her underground utility locator. Disposition - Disposition Referrals: Jose Roberto Serrano, [Non-Staff] - Disposition: HOME/ ROUTINE Disposition Time: 09:10 Condition: IMPROVED Additional Instructions: IMELDA SANTIAGO, thank you for letting us take care of you today. The emergency medical care you received today was directed at your acute symptoms. If you were prescribed any medication, please fill it and take as directed. It may take several days for your symptoms to resolve. Return to the Emergency Department if your symptoms worsen, do not improve, or if you have any other problems. Please contact your doctor or call one of the physicians/clinics you have been referred to that are listed on the Patient Visit Information form that is included in your discharge packet. Bring any paperwork you were given at discharge with you along with any medications you are taking to your follow up visit. Our treatment cannot replace ongoing medical care by a primary care provider outside of the emergency department. Thank you for allowing the [facility] team to be part of your care today. Follow up with your underground utility locator as scheduled today for pain management and further evaluation. Instructions: Sickle Cell Disease (DC) Forms: [employer] (Kyrgyz) - Clinical Impression Clinical Impression: Sickle cell disease - Scribe Statement The provider has reviewed the documentation as recorded by the Scribe Gomez Do Provider Attestation: All medical record entries made by the Scribe were at my direction and personally dictated by me. I have reviewed the chart and agree that the record accurately reflects my personal performance of the history, physical exam, medical decision making, and the department course for this patient. I have also personally directed, reviewed, and agree with the discharge instructions and disposition.
== END 2018-02-04 10:32 | disposition home or self-care (01) ==
LOC: C.ER 07:46
DX: D57.1 Sickle-cell disease without crisis (principal)
CPT/HCPCS: 71045; 80053; 85027; 85044; 96360; 99285; J7030

== ENCOUNTER 2018-03-02 07:50 | Emergency (ER) | payer MEDICAID ==
[2018-03-02 07:50] VITALS: BMI 22.4
[2018-03-02] MEDS ORDERED: Sodium Chloride 0.9% 1,000 ML IV ONE (08:24)
[2018-03-02 08:32] LABS: HCG,QUALITATIVE URINE NEGATIVE (NEGATIVE)
[2018-03-02 08:35] LABS: SQUAMOUS EPITHIAL 1 /hpf (0-5); URINE BILIRUBIN NEGATIVE (NEGATIVE); URINE BLOOD 1+ (NEGATIVE); URINE CLARITY Clear (Clear); URINE COLOR Yellow (YELLOW); URINE GLUCOSE (UA) NORMAL (Normal); URINE LEUKOCYTE ESTERASE NEG Leu/uL (Negative); URINE PROTEIN NEGATIVE (NEGATIVE); URINE UROBILINOGEN NORMAL mg/dL (0.2-1.0)
[2018-03-02] MEDS ORDERED: Sodium Chloride 0.9% 1,000 ML ONE (09:02)
[2018-03-02 09:40] LABS: BASO # 0.1 K/uL (0.0-0.2); BASO % 0.6 % (0.0-2.0); EOS # 0.2 K/uL (0.0-0.7); EOS % 1.1 % (0.0-4.0); LYMPH # 4.6 K/uL (1.0-4.3); LYMPH % 34.4 % (20.0-40.0); MEAN CORPUSCULAR HEMOGLOBIN 32.2 pg (27.0-31.0); MEAN CORPUSCULAR HGB CONC 34.3 g/dL (33.0-37.0); MEAN PLATELET VOLUME 8.2 fL (7.2-11.7); MONO # 1.2 K/uL (0.0-0.8); MONO % 8.7 % (0.0-10.0); NEUT # 7.4 K/uL (1.8-7.0); NEUT % 55.2 % (50.0-75.0); NRBC % 0.2 % (0.0-2.0); RBC 2.48 Mil/uL (3.80-5.20); RED CELL DISTRIBUTION WIDTH 18.2 % (11.5-14.5); WHITE BLOOD COUNT 13.4 K/uL (4.8-10.8)
[2018-03-02 09:41] LABS: MEAN CELL VOLUME 93.6 fL (81.0-99.0)
[2018-03-02 09:51] LABS: ALB/GLOB RATIO 1.5 (1.0-2.1); ALT/SGPT 129 U/L (9-52); AST/SGOT 74 U/L (14-36); BLOOD UREA NITROGEN 12 mg/dL (7-17); CALCIUM 8.9 mg/dl (8.6-10.4); GFR NON-AFRICAN AMERICAN > 60
--- NOTE | 2018-03-02 10:26 | C.PDOC ---
History Of Present Illness 32 y/o female, w/PMhx of sickle cell disease, presents to the ER complaining of generalized body pain which has been present for the past 3 days. Patient states that she took home medications without relief. Patient reports that she has cough. Denies having nausea and vomiting. Time Seen by Provider: 03/02/18 08:11 Chief Complaint (Nursing): Pain, Chronic History Per: Patient History/Exam Limitations: no limitations Onset/Duration Of Symptoms: Days Current Symptoms Are (Timing): Still Present Severity: Moderate Past Medical History Reviewed: Historical Data, Nursing Documentation, Vital Signs Vital Signs: Last Vital Signs Temp 98.2 F 03/02/18 10:31 Pulse 70 03/02/18 10:31 Resp 16 03/02/18 10:31 BP 109/73 03/02/18 10:31 Pulse Ox 97 03/02/18 10:53 - Medical History PMH: Anemia, Bronchitis, Gall Bladder Disease, Pneumonia, Sickle Cell Disease Surgical History: Cholecystectomy - [facility] Procedures INFLUENZA VACCINATION (03/16/12) INJECT/INFUSE ELECTROLYT (09/07/13) INJECT/INFUSE NEC (01/25/14) INSERT VAD RESERVOIR IN CHEST SUBCU/FASCIA, OPEN (05/31/17) INSERTION OF INFUSION DEV INTO SUP VENA CAVA, PERC APPROACH (01/25/17) NEBULIZER THERAPY (12/02/13) PACKED CELL TRANSFUSION (02/12/15) REMOVAL OF VAD FROM TRUNK SUBCU/FASCIA, OPEN APPROACH (04/15/16) TRANSFUSE NONAUT RED BLOOD CELLS IN PERIPH VEIN, PERC (09/14/17) VACCINATION NEC (08/22/13) Family History: States: No Known Family Hx - Social History Hx Tobacco Use: No Hx Alcohol Use: No Hx Substance Use: Yes - Immunization History Hx Tetanus Toxoid Vaccination: Yes Hx Influenza Vaccination: Yes (2017) Hx Pneumococcal Vaccination: Yes (2014) Review Of Systems Except As Marked, All Systems Reviewed And Found Negative. Constitutional: Positive for: Malaise. Negative for: Fever, Chills Cardiovascular: Negative for: Chest Pain Respiratory: Positive for: Cough. Negative for: Shortness of Breath Gastrointestinal: Negative for: Nausea, Vomiting Physical Exam - Physical Exam Appears: Non-toxic, No Acute Distress Skin: Normal Color, Warm, Dry Head: Atraumatic, Normacephalic Eye(s): bilateral: Normal Inspection Nose: Normal Oral Mucosa: Moist Neck: Supple Chest: Symmetrical Cardiovascular: Rhythm Regular Respiratory: Normal Breath Sounds, No Rales, No Rhonchi, No Wheezing Gastrointestinal/Abdominal: Normal Exam, Soft, No Tenderness, No Guarding, No Rebound Neurological/Psych: Oriented x3, Normal Speech ED Course And Treatment - Laboratory Results Result Diagrams: 03/02/18 09:33 03/02/18 09:33 ECG: Interpreted By Me, Viewed By Me ECG Rhythm: Sinus Rhythm Interpretation Of ECG: NSR with normal intervals, normal axises, and no ST/ T wave abnormalities Rate From EC O2 Sat by Pulse Oximetry: 97 (RA) Pulse Ox Interpretation: Normal Medical Decision Making Medical Decision Making: Assessment: Sickle Cell Crisis Plan: --Labs --ECG --CXR --HCG --UA --Benadryl PO --Dilaudid PO --IV Fluids Updates: On re-evaluation, patient continue to have pain. Patient will be admitted to Med Surg and Observation. Disposition Discussed With Dr.: Enzo Louis Doctor Will See Patient In The: Hospital Counseled Patient/Family Regarding: Studies Performed, Diagnosis - Disposition Disposition: HOSPITALIZED Disposition Time: 10:26 Condition: FAIR - Clinical Impression Clinical Impression: Sickle cell crisis - Scribe Statement The provider has reviewed the documentation as recorded by the Rosa Sheets Provider Attestation: All medical record entries made by the Zacheryibvalarie were at my direction and personally dictated by me. I have reviewed the chart and agree that the record accurately reflects my personal performance of the history, physical exam, medical decision making, and the department course for this patient. I have also personally directed, reviewed, and agree with the discharge instructions and disposition.
[2018-03-02 10:49] VITALS: RESP 16
--- NOTE | 2018-03-02 10:51 | RAD ---
HISTORY: chest pain COMPARISON: Chest x-ray performed 02/04/18 TECHNIQUE: Chest PA and lateral FINDINGS: Right-sided MediPort extends expected location of the cavoatrial junction. LUNGS: No focal consolidation. Please note that chest x-ray has limited sensitivity for the detection of pulmonary masses. PLEURA: No significant pleural effusion identified. No definite pneumothorax . CARDIOVASCULAR: Heart size appears within normal limits. OSSEOUS STRUCTURES: No acute osseous abnormality identified. VISUALIZED UPPER ABDOMEN: Unremarkable. OTHER FINDINGS: None. IMPRESSION: Right-sided MediPort.
[2018-03-02] MEDS ORDERED: DiphenhydrAMINE 50 mg/ml Inj IVP STA (11:05)
[2018-03-02] MEDS ORDERED: DiphenhydrAMINE 50 mg/ml Inj ONE (11:10)
[2018-03-02] MEDS ORDERED: Morphine 4 MG/ML VIAL ONE (12:54)
[2018-03-02] MEDS ORDERED: DiphenhydrAMINE 50 mg/ml Inj IVP PRN (13:10)
[2018-03-02] MEDS ORDERED: Morphine 4 MG/ML VIAL IV PRN (13:13)
[2018-03-02 13:25] VITALS: BP 115/71; PULSE 75; TEMP 98.4; O2SAT 98
[2018-03-02] MEDS ORDERED: Dextrose 5%/0.45% NS 1,000 ML IV SCH (14:00)
[2018-03-02] MEDS ORDERED: HYDROmorphone 1 mg/ml ISec IVP SCH (16:00)
[2018-03-02] MEDS ORDERED: DiphenhydrAMINE 50 mg/ml Inj IVP SCH (16:00)
[2018-03-03] MEDS ORDERED: Enoxaparin 40 mg Syringe SC SCH (10:00)
--- NOTE | 2018-03-04 07:06 | CARD ---
APPROVED REPORT Date of service: 03/02/2018 EKG Measurement Heart [id number] <Conclusion> Normal sinus rhythm Normal ECG
== END 2018-03-02 14:15 | disposition left against medical advice (07) ==
LOC: C.ER 07:50 → UNDOADMOB 10:25 → C.9E 10:25 → C.ER 14:15
DX: D57.00 Hb-SS disease with crisis, unspecified (principal)
CPT/HCPCS: 71046; 80053; 81001; 84484; 84703; 85025; 85044; 93005; 96361; 96374; 99285; J1200; J7030

== ENCOUNTER 2018-03-12 20:58 | Emergency (ER) | payer MEDICAID ==
[2018-03-12 20:59] VITALS: BMI 22.4
--- NOTE | 2018-03-12 22:32 | C.PDOC ---
History Of Present Illness 32 y/o F c PMHx sickle cell disease p/w body pain x 4 days which she states is similar to previous sickle cell crises. Denies chest pain, fever, or cough. Time Seen by Provider: 03/12/18 21:38 Chief Complaint (Nursing): Pain, Chronic Past Medical History Vital Signs: Last Vital Signs Temp 99.2 F 03/12/18 21:14 Pulse 101 H 03/12/18 21:14 Resp 16 03/12/18 21:14 BP 108/71 03/12/18 21:14 Pulse Ox 96 03/12/18 21:14 - Medical History PMH: Anemia, Bronchitis, Gall Bladder Disease, Pneumonia, Sickle Cell Disease Surgical History: Cholecystectomy - [facility] Procedures INFLUENZA VACCINATION (03/16/12) INJECT/INFUSE ELECTROLYT (09/07/13) INJECT/INFUSE NEC (01/25/14) INSERT VAD RESERVOIR IN CHEST SUBCU/FASCIA, OPEN (05/31/17) INSERTION OF INFUSION DEV INTO SUP VENA CAVA, PERC APPROACH (01/25/17) NEBULIZER THERAPY (12/02/13) PACKED CELL TRANSFUSION (02/12/15) REMOVAL OF VAD FROM TRUNK SUBCU/FASCIA, OPEN APPROACH (04/15/16) TRANSFUSE NONAUT RED BLOOD CELLS IN PERIPH VEIN, PERC (09/14/17) VACCINATION NEC (08/22/13) Family History: States: Unknown Family Hx - Social History Hx Tobacco Use: No Hx Alcohol Use: No Hx Substance Use: Yes - Immunization History Hx Tetanus Toxoid Vaccination: Yes (2014) Hx Influenza Vaccination: Yes (2017) Hx Pneumococcal Vaccination: Yes (2014) Review Of Systems Except As Marked, All Systems Reviewed And Found Negative. Constitutional: Negative for: Fever Cardiovascular: Negative for: Chest Pain Physical Exam - Physical Exam Appears: No Acute Distress Skin: Normal Color Head: Atraumatic, Normacephalic Eye(s): bilateral: PERRL Oral Mucosa: Moist Neck: Supple Cardiovascular: Rhythm Regular Respiratory: Normal Breath Sounds Gastrointestinal/Abdominal: Soft, No Tenderness Back: No CVA Tenderness, No Vertebral Tenderness Extremity: No Tenderness, No Swelling Pulses: Left Radial: Normal, Right Radial: Normal Neurological/Psych: Normal Speech, Normal Cognition Gait: Steady ED Course And Treatment - Laboratory Results Result Diagrams: 03/12/18 22:23 03/12/18 22:23 O2 Sat by Pulse Oximetry: 96 Medical Decision Making Medical Decision Making: Hb 7.1, retic 14. Dilaudid PO and Benadryl 50 PO administered, patient sleeping in ED, reassessed and feels well to go home. Advised to return to ED for any worsening symptoms. Disposition - Disposition Referrals: Enzo Louis MD [Staff Provider] - Disposition: HOME/ ROUTINE Disposition Time: 23:53 Condition: STABLE Instructions: Sickle Cell Disease (DC) Forms: [facility] (Greek) - Clinical Impression Clinical Impression: Sickle cell disease
[2018-03-12 22:33] LABS: BASO # 0.2 K/uL (0.0-0.2); EOS # 0.7 K/uL (0.0-0.7); EOS % 4.1 % (0.0-4.0); HEMOGLOBIN 7.1 g/dL (11.0-16.0); LYMPH # 6.6 K/uL (1.0-4.3); LYMPH % 37.8 % (20.0-40.0); MEAN CELL VOLUME 94.5 fL (81.0-99.0); MEAN CORPUSCULAR HEMOGLOBIN 33.3 pg (27.0-31.0); MEAN CORPUSCULAR HGB CONC 35.2 g/dL (33.0-37.0); MEAN PLATELET VOLUME 8.4 fL (7.2-11.7); MONO # 1.4 K/uL (0.0-0.8); MONO % 7.9 % (0.0-10.0); NEUT # 8.7 K/uL (1.8-7.0); NEUT % 49.2 % (50.0-75.0); NRBC % 0.4 % (0.0-2.0); RBC 2.13 Mil/uL (3.80-5.20); RED CELL DISTRIBUTION WIDTH 18.7 % (11.5-14.5); WHITE BLOOD COUNT 17.5 K/uL (4.8-10.8)
[2018-03-12 22:48] LABS: ALB/GLOB RATIO 1.4 (1.0-2.1); ALBUMIN 3.9 g/dL (3.5-5.0); ALT/SGPT 212 U/L (9-52); AST/SGOT 129 U/L (14-36); BLOOD UREA NITROGEN 14 mg/dL (7-17); GFR NON-AFRICAN AMERICAN > 60
[2018-03-12 23:24] VITALS: BP 99/64; PULSE 96; RESP 18; TEMP 99.3
[2018-03-12 23:55] VITALS: O2SAT 96
== END 2018-03-13 00:10 | disposition home or self-care (01) ==
LOC: C.ER 20:58
DX: D57.1 Sickle-cell disease without crisis (principal)

== ENCOUNTER 2018-03-13 15:53 | Emergency (ER) | payer MEDICAID ==
[2018-03-13 15:53] VITALS: BMI 22.4
[2018-03-13 15:59] VITALS: BP 113/77; PULSE 90; RESP 16; TEMP 98.8; O2SAT 98
--- NOTE | 2018-03-13 16:30 | C.PDOC ---
History Of Present Illness 32 y/o female, w/PMhx of sickle cell disease, presents to the ER complaining of body aches. 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 Patient denies having fever, chills, and other complaints at this time. Of note, patient is well known to [facility] ER because she has visited multiple times for the same complaint. She was evaluated yesterday and she had a baseline evaluation. Time Seen by Provider: 03/13/18 16:03 Chief Complaint (Nursing): Pain, Chronic History Per: Patient History/Exam Limitations: no limitations Onset/Duration Of Symptoms: Days Current Symptoms Are (Timing): Still Present Severity: Moderate Past Medical History Reviewed: Historical Data, Nursing Documentation, Vital Signs Vital Signs: Last Vital Signs Temp 98.8 F 03/13/18 15:56 Pulse 90 03/13/18 15:56 Resp 16 03/13/18 15:56 BP 113/77 03/13/18 15:56 Pulse Ox 98 03/13/18 15:56 - Medical History PMH: Anemia, Bronchitis, Gall Bladder Disease, Pneumonia, Sickle Cell Disease Surgical History: Cholecystectomy - [facility] Procedures INFLUENZA VACCINATION (03/16/12) INJECT/INFUSE ELECTROLYT (09/07/13) INJECT/INFUSE NEC (01/25/14) INSERT VAD RESERVOIR IN CHEST SUBCU/FASCIA, OPEN (05/31/17) INSERTION OF INFUSION DEV INTO SUP VENA CAVA, PERC APPROACH (01/25/17) NEBULIZER THERAPY (12/02/13) PACKED CELL TRANSFUSION (02/12/15) REMOVAL OF VAD FROM TRUNK SUBCU/FASCIA, OPEN APPROACH (04/15/16) TRANSFUSE NONAUT RED BLOOD CELLS IN PERIPH VEIN, PERC (09/14/17) VACCINATION NEC (08/22/13) Family History: States: No Known Family Hx - Social History Hx Tobacco Use: No Hx Alcohol Use: No Hx Substance Use: Yes - Immunization History Hx Tetanus Toxoid Vaccination: Yes (2014) Hx Influenza Vaccination: Yes (2017) Hx Pneumococcal Vaccination: Yes (2014) Review Of Systems Except As Marked, All Systems Reviewed And Found Negative. Constitutional: Positive for: Malaise. Negative for: Fever, Chills Physical Exam - Physical Exam Appears: Non-toxic, No Acute Distress Skin: Normal Color, Warm, Dry Head: Atraumatic, Normacephalic Eye(s): bilateral: Normal Inspection Nose: Normal Oral Mucosa: Moist Neck: Supple Chest: Symmetrical, Other (mediport in right upper chest) Cardiovascular: Rhythm Regular Respiratory: Normal Breath Sounds, No Rales, No Rhonchi, No Wheezing Gastrointestinal/Abdominal: Normal Exam, Soft, No Tenderness, No Guarding, No R ebound Neurological/Psych: Oriented x3, Normal Speech ED Course And Treatment O2 Sat by Pulse Oximetry: 98 (RA) Pulse Ox Interpretation: Normal Reevaluation Time: 16:10 (remains NAD) - Physician Consult Information Outcome Of Conversation: 161: d/w Dr. Drew- pt's Hem/Onc. appreciates pt was inpt x 3 days discharged 03/12. Seen 03/12 here with baseline labs- and eval and d/c'd home. All results, blood test trends, [place] reviewed with Dr. Wells who declines repeat w/u today nor inpatient eval and recommends pt may f/u as opt as usual. Pt seen WEEKLY with Dr. Wells for refills of PO dilaudid. 163: pt eloped from ED prior to d/c instructions given. Medical Decision Making Medical Decision Making: chronic pain Sickle Cell Disease LOW susp of Sickle Cell Crisis as pt NAD on initial and re-eval Chronic narcotics use/abuse hx, now managed by Dr. Wells weekly Disposition Doctor Will See Patient In The: Office Counseled Patient/Family Regarding: Studies Performed, Diagnosis - Disposition Referrals: Giovanna Drew MD [Staff Provider] - Enzo Louis MD [Staff Provider] - Disposition: HOME/ ROUTINE Disposition Time: 16:31 Condition: GOOD Additional Instructions: continue your normal routine follow-up with Dr. Drew as usual Instructions: Sickle Cell Disease, Chronic Pain Forms: [employer] (Romanian) - Clinical Impression Clinical Impression: Chronic pain, Sickle cell disease - Scribe Statement The provider has reviewed the documentation as recorded by the Rosa Sheets Provider Attestation: All medical record entries made by the Scribe were at my direction and personally dictated by me. I have reviewed the chart and agree that the record accurately reflects my personal performance of the history, physical exam, medical decision making, and the department course for this patient. I have also personally directed, reviewed, and agree with the discharge instructions and disposition.
== END 2018-03-13 17:01 | disposition home or self-care (01) ==
LOC: C.ER 15:53
DX: G89.29 Other chronic pain (principal); D57.1 Sickle-cell disease without crisis

== ENCOUNTER 2018-03-22 08:32 | Emergency (ER) | payer MEDICAID ==
[2018-03-22 08:33] VITALS: BMI 22.4
[2018-03-22 08:48] VITALS: RESP 18
--- NOTE | 2018-03-22 09:31 | C.PDOC ---
History Of Present Illness 32 y/o female with history of Sickle cell disease presents to ED with c/o generalized body pain and dizziness for 3 days. Patient denies trauma, nausea, vomiting, headache, fever, chills or any other complaints at this time. Time Seen by Provider: 03/22/18 08:59 History Per: Patient History/Exam Limitations: no limitations Onset/Duration Of Symptoms: Days Current Symptoms Are (Timing): Still Present Past Medical History Reviewed: Historical Data, Nursing Documentation, Vital Signs Vital Signs: Last Vital Signs Temp 98.6 F 03/22/18 08:47 Pulse 86 03/22/18 08:47 Resp 18 03/22/18 08:47 BP 146/73 03/22/18 08:47 Pulse Ox 96 03/22/18 08:47 - Medical History PMH: Anemia, Bronchitis, Gall Bladder Disease, Pneumonia, Sickle Cell Disease Surgical History: Cholecystectomy - [facility] Procedures INFLUENZA VACCINATION (03/16/12) INJECT/INFUSE ELECTROLYT (09/07/13) INJECT/INFUSE NEC (01/25/14) INSERT VAD RESERVOIR IN CHEST SUBCU/FASCIA, OPEN (05/31/17) INSERTION OF INFUSION DEV INTO SUP VENA CAVA, PERC APPROACH (01/25/17) NEBULIZER THERAPY (12/02/13) PACKED CELL TRANSFUSION (02/12/15) REMOVAL OF VAD FROM TRUNK SUBCU/FASCIA, OPEN APPROACH (04/15/16) TRANSFUSE NONAUT RED BLOOD CELLS IN PERIPH VEIN, PERC (09/14/17) VACCINATION NEC (08/22/13) Family History: States: No Known Family Hx - Social History Hx Tobacco Use: No Hx Alcohol Use: No Hx Substance Use: Yes - Immunization History Hx Tetanus Toxoid Vaccination: Yes (2014) Hx Influenza Vaccination: Yes (2017) Hx Pneumococcal Vaccination: Yes (2014) Review Of Systems Constitutional: Negative for: Fever, Chills Cardiovascular: Negative for: Chest Pain Gastrointestinal: Negative for: Nausea, Vomiting Musculoskeletal: Positive for: Other (body pain) Neurological: Positive for: Dizziness. Negative for: Weakness, Numbness Physical Exam - Physical Exam Appears: Non-toxic, No Acute Distress Skin: Warm, Dry, No Rash Head: Atraumatic, Normacephalic Eye(s): bilateral: Normal Inspection (No nystagmus) Oral Mucosa: Moist Neck: Supple Cardiovascular: Rhythm Regular Respiratory: Normal Breath Sounds, No Rales, No Rhonchi, No Wheezing Gastrointestinal/Abdominal: Soft, No Tenderness, No Guarding, No Rebound Neurological/Psych: Oriented x3, Normal Speech, Normal Cognition, Normal Motor, Normal Sensation Gait: Steady ED Course And Treatment O2 Sat by Pulse Oximetry: 96 (RA) Pulse Ox Interpretation: Normal Reevaluation Time: 10:39 Reassessment Condition: Improved Disposition Counseled Patient/Family Regarding: Diagnosis, Need For Followup, Rx Given - Disposition Referrals: YOUR,PMD [Other] Disposition: HOME/ ROUTINE Disposition Time: 10:39 Condition: IMPROVED Prescriptions: Meclizine [Antivert] 50 mg PO TID PRN #15 tab PRN Reason: Dizziness Instructions: Chronic Pain (DC), Vertigo (a Type of Dizziness) (DC) - Clinical Impression Clinical Impression: Chronic pain disorder, Vertigo - Scribe Statement The provider has reviewed the documentation as recorded by the Rosa Rodriguez All medical record entries made by the Zacheryibvalarie were at my direction and personally dictated by me. I have reviewed the chart and agree that the record accurately reflects my personal performance of the history, physical exam, medical decision making, and the department course for this patient. I have also personally directed, reviewed, and agree with the discharge instructions and disposition.
[2018-03-22 11:08] VITALS: BP 136/79; PULSE 69; TEMP 98; O2SAT 98
== END 2018-03-22 11:08 | disposition home or self-care (01) ==
LOC: C.ER 08:32
DX: R42 Dizziness and giddiness (principal); G89.29 Other chronic pain

== ENCOUNTER 2018-03-23 08:50 | Emergency (ER) | payer MEDICAID ==
[2018-03-23 08:50] VITALS: BMI 22.4
[2018-03-23 08:58] VITALS: RESP 18; TEMP 98
[2018-03-23 10:18] VITALS: BP 129/78; PULSE 94; O2SAT 97
--- NOTE | 2018-03-23 10:18 | RAD ---
Date of service: 03/23/2018 HISTORY: cough COMPARISON: 03/02/2018 TECHNIQUE: Chest PA and lateral FINDINGS: LUNGS: No active pulmonary disease. PLEURA: No significant pleural effusion identified. No pneumothorax apparent. CARDIOVASCULAR: Right central venous infusion port. OSSEOUS STRUCTURES: No significant abnormalities. VISUALIZED UPPER ABDOMEN: Normal. OTHER FINDINGS: None. IMPRESSION: No active disease.
[2018-03-23 10:19] LABS: HCG,QUALITATIVE URINE NEGATIVE (NEGATIVE)
[2018-03-23 10:23] LABS: SQUAMOUS EPITHIAL 1 /hpf (0-5); URINE BACTERIA RARE (<OCC); URINE BILIRUBIN NEGATIVE (NEGATIVE); URINE BLOOD NEGATIVE (NEGATIVE); URINE CLARITY Clear (Clear); URINE COLOR Yellow (YELLOW); URINE GLUCOSE (UA) NORMAL (Normal); URINE LEUKOCYTE ESTERASE NEG Leu/uL (Negative); URINE PROTEIN NEGATIVE (NEGATIVE)
[2018-03-23 10:23] LABS: INFLUENZA A B NEGATIVE FOR FLU A/B (NEGATIVE)
--- NOTE | 2018-03-23 10:51 | C.PDOC ---
History Of Present Illness 32-year-old female, presents to the emergency department with complaints of throat pain and body aches since yesterday. Patient has a hx of multiple visits to ED for sickle cell crisis. pt is also requesting medication for her sickle cell pain. No chest pain, vomiting, fever. <Bethany Osei - Last Filed: 03/23/18 14:11> History Per: Patient History/Exam Limitations: no limitations Current Symptoms Are (Timing): Still Present Severity: Moderate <Bethany Osei - Last Filed: 03/23/18 14:11> <Torie Hernandez - Last Filed: 03/24/18 08:59> Time Seen by Provider: 03/23/18 09:32 Chief Complaint (Nursing): Cough, Cold, Congestion Past Medical History Reviewed: Historical Data, Nursing Documentation, Vital Signs Vital Signs: Last Vital Signs Temp 98 F 03/23/18 08:56 Pulse 94 H 03/23/18 10:18 Resp 18 03/23/18 10:18 BP 129/78 03/23/18 10:18 Pulse Ox 97 03/23/18 10:18 - Medical History PMH: Anemia, Bronchitis, Gall Bladder Disease, Pneumonia, Sickle Cell Disease Surgical History: Cholecystectomy - [facility] Procedures INFLUENZA VACCINATION (03/16/12) INJECT/INFUSE ELECTROLYT (09/07/13) INJECT/INFUSE NEC (01/25/14) INSERT VAD RESERVOIR IN CHEST SUBCU/FASCIA, OPEN (05/31/17) INSERTION OF INFUSION DEV INTO SUP VENA CAVA, PERC APPROACH (01/25/17) NEBULIZER THERAPY (12/02/13) PACKED CELL TRANSFUSION (02/12/15) REMOVAL OF VAD FROM TRUNK SUBCU/FASCIA, OPEN APPROACH (04/15/16) TRANSFUSE NONAUT RED BLOOD CELLS IN PERIPH VEIN, PERC (09/14/17) VACCINATION NEC (08/22/13) Family History: States: No Known Family Hx - Social History Hx Tobacco Use: No Hx Alcohol Use: No Hx Substance Use: Yes - Immunization History Hx Tetanus Toxoid Vaccination: Yes (2014) Hx Influenza Vaccination: Yes (2017) Hx Pneumococcal Vaccination: Yes (2014) <Bethany Osei - Last Filed: 03/23/18 14:11> Vital Signs: Last Vital Signs Temp 98 F 03/23/18 08:56 Pulse 94 H 03/23/18 10:18 Resp 18 03/23/18 10:18 BP 129/78 03/23/18 10:18 Pulse Ox 97 03/23/18 14:16 - [facility] Procedures INFLUENZA VACCINATION (03/16/12) INJECT/INFUSE ELECTROLYT (09/07/13) INJECT/INFUSE NEC (01/25/14) INSERT VAD RESERVOIR IN CHEST SUBCU/FASCIA, OPEN (05/31/17) INSERTION OF INFUSION DEV INTO SUP VENA CAVA, PERC APPROACH (01/25/17) NEBULIZER THERAPY (12/02/13) PACKED CELL TRANSFUSION (02/12/15) REMOVAL OF VAD FROM TRUNK SUBCU/FASCIA, OPEN APPROACH (04/15/16) TRANSFUSE NONAUT RED BLOOD CELLS IN PERIPH VEIN, PERC (09/14/17) VACCINATION NEC (08/22/13) <Torie Hernandez - Last Filed: 03/24/18 08:59> Review Of Systems Constitutional: Positive for: Malaise. Negative for: Fever ENT: Positive for: Throat Pain Cardiovascular: Negative for: Chest Pain Respiratory: Negative for: Shortness of Breath Gastrointestinal: Negative for: Vomiting Skin: Negative for: Rash Neurological: Negative for: Weakness, Numbness <Bethany Osei - Last Filed: 03/23/18 14:11> Physical Exam - Physical Exam Appears: Non-toxic, No Acute Distress Skin: Warm, Dry, No Rash Head: Atraumatic, Normacephalic Eye(s): bilateral: Normal Inspection Nose: Normal Oral Mucosa: Moist Lips: Normal Appearing Neck: Normal ROM Cardiovascular: Rhythm Regular, No Murmur Respiratory: Normal Breath Sounds, No Accessory Muscle Use Gastrointestinal/Abdominal: Soft, No Tenderness Back: Normal Inspection Extremity: Normal ROM, No Deformity Neurological/Psych: Oriented x3, Normal Speech <Bethany Osei - Last Filed: 03/23/18 14:11> ED Course And Treatment O2 Sat by Pulse Oximetry: 97 Pulse Ox Interpretation: Normal (RA) <Bethany Osei - Last Filed: 03/23/18 14:11> Disposition - Disposition Disposition Time: 10:51 <Bethany Osei - Last Filed: 03/23/18 14:11> <Torie Hernandez M - Last Filed: 03/24/18 08:59> - Disposition Referrals: Enzo Loius MD [Staff Provider] - Disposition: HOME/ ROUTINE Condition: STABLE Additional Instructions: Follow up with the medical doctor within 1-2 days. Return if worsened. Prescriptions: RX: Amoxicillin [Amoxil 500 mg Cap] 500 mg PO TID #30 cap Instructions: Sore Throat in Adults Forms: [employer] (Welsh) - Clinical Impression Clinical Impression: Pharyngitis - Scribe Statement The provider has reviewed the documentation as recorded by the Scribe (Anika Shearer) All medical record entries made by the Scribe were at my direction and personally dictated by me. I have reviewed the chart and agree that the record accurately reflects my personal performance of the history, physical exam, medical decision making, and the department course for this patient. I have also personally directed, reviewed, and agree with the discharge instructions and disposition. <Bethany Osei - Last Filed: 03/23/18 14:11> - PA / [employer] / Resident Statement / has reviewed & agrees with the documentation as recorded. <Torie Hernandez - Last Filed: 03/24/18 08:59>
== END 2018-03-23 10:59 | disposition home or self-care (01) ==
LOC: C.ER 08:50
DX: J02.9 Acute pharyngitis, unspecified (principal)

== ENCOUNTER 2018-03-28 12:20 | Inpatient (IN) | payer MEDICAID ==
[2018-03-28 12:20] VITALS: BMI 22.4
--- NOTE | 2018-03-28 12:58 | C.PDOC ---
History Of Present Illness 32 year old female, with Hx of sickle cell disease vs trait, presents to ED with recurrent right lower chest wall pain for the past several days, as well as new onset of lower back pain for several days. Patient states right chest pain worsens with coughing. Possible SOB due to pain. Localized lower back pain worsens with movement. Patient denies any fever, cough, or urinary symptoms. Patient had multiple frequent ER visits for generalized pain. States this is bad. Time Seen by Provider: 03/28/18 12:45 Chief Complaint (Nursing): Chest Pain History Per: Patient History/Exam Limitations: no limitations Onset/Duration Of Symptoms: Days Current Symptoms Are (Timing): Still Present Past Medical History Reviewed: Historical Data, Nursing Documentation, Vital Signs Vital Signs: Last Vital Signs Temp 99.2 F 03/28/18 12:37 Pulse 86 03/28/18 12:37 Resp 16 03/28/18 12:37 BP 121/79 03/28/18 12:37 Pulse Ox 95 03/28/18 12:37 - Medical History PMH: Anemia, Bronchitis, Gall Bladder Disease, Pneumonia, Sickle Cell Disease Surgical History: Cholecystectomy - [facility] Procedures INFLUENZA VACCINATION (03/16/12) INJECT/INFUSE ELECTROLYT (09/07/13) INJECT/INFUSE NEC (01/25/14) INSERT VAD RESERVOIR IN CHEST SUBCU/FASCIA, OPEN (05/31/17) INSERTION OF INFUSION DEV INTO SUP VENA CAVA, PERC APPROACH (01/25/17) NEBULIZER THERAPY (12/02/13) PACKED CELL TRANSFUSION (02/12/15) REMOVAL OF VAD FROM TRUNK SUBCU/FASCIA, OPEN APPROACH (04/15/16) TRANSFUSE NONAUT RED BLOOD CELLS IN PERIPH VEIN, PERC (09/14/17) VACCINATION NEC (08/22/13) Family History: States: No Known Family Hx - Social History Hx Tobacco Use: No Hx Alcohol Use: No Hx Substance Use: Yes - Immunization History Hx Tetanus Toxoid Vaccination: Yes (2014) Hx Influenza Vaccination: Yes (2017) Hx Pneumococcal Vaccination: Yes (2014) Review Of Systems Except As Marked, All Systems Reviewed And Found Negative. Constitutional: Negative for: Fever Cardiovascular: Positive for: Chest Pain (right-sided) Respiratory: Positive for: Shortness of Breath. Negative for: Cough Genitourinary: Negative for: Other (urinary symptoms) Musculoskeletal: Positive for: Back Pain (lower) Physical Exam - Physical Exam Appears: Non-toxic, Other (Moderate distress; crying) Skin: Warm, Dry Head: Atraumatic, Normacephalic Eye(s): bilateral: Normal Inspection Oral Mucosa: Moist Cardiovascular: Rhythm Regular, No Murmur Respiratory: Normal Breath Sounds, No Rales, No Rhonchi, No Wheezing Back: No CVA Tenderness, No Vertebral Tenderness, No Paraspinal Tenderness, Other (Limited ROM due to pain) Neurological/Psych: Oriented x3, Normal Speech ED Course And Treatment - Laboratory Results Result Diagrams: 03/28/18 14:06 03/28/18 14:06 ECG: Interpreted By Me, Viewed By Me ECG Rhythm: Sinus Rhythm Rate From EC O2 Sat by Pulse Oximetry: 95 (RA) Pulse Ox Interpretation: Normal - Radiology CXR: Read By Radiologist - Other Rad Chest X-Ray X-Ray: Read By Radiologist Interpretation: FINDINGS: Right-sided MediPort extends the cavoatrial junction. LUNGS: No focal consolidation. Please note that chest x-ray has limited sensitivity for the detection of pulmonary masses. PLEURA: No significant pleural effusion identified. No definite pneumothorax . CARDIOVASCULAR: Heart size appears within normal limits. OSSEOUS STRUCTURES: No acute osseous abnormality identified. VISUALIZED UPPER ABDOMEN: Unremarkable. OTHER FINDINGS: Left upper quadrant/epigastric surgical clips. IMPRESSION: Right- sided MediPort. - CT Scan/US CT Chest Other Rad Studies (CT/US): Read By Radiologist, Radiology Report Reviewed CT/US Interpretation: Findings: Right-sided MediPort extends to the right atrium. Visualized portions of the inferior thyroid gland appear unremarkable. The mediastinal and hilar vascular structures appear within normal limits. The heart appears within normal limits of size. Mild patchy/tree-in-bud like opacities within the right lower lobe. No focal consolidation. No pleural effus ion. No pneumothorax. Limited visualized portions of the upper abdomen: 12 mm hypodense hepatic dome lesion measures approximately 36 HU, indeterminate. Increased attenuation throughout the liver. Left upper quadrant surgical clips, likely related to splenectomy. Cholecystectomy. No acute osseous abnormality is detected. Impression: Technical errors as delineated above precluded evaluation of the pulmonary arteries; examination is centrally noncontrast with minimal IV contrast administered. Right-sided MediPort. Mild patchy/tree-in-bud like opacities within the right lower lobe. Correlate for infectious/inflammatory etiologies. No focal consolidation, pleural effusion, or pneumothorax. Indeterminate 12 mm hypodense hepatic dome lesion. Increased attenuation throughout the liver. These findings were evident on CT of the abdomen and pelvis performed 09/28/17. Outpatient dedicated cross-sectional imaging may be considered for further characterization. Splenectomy. Cholecys tectomy. Left upper quadrant surgical clips. Progress - Re-Evaluation Re-evaluation Note: 03/28/18 14:55 APPEARS COMFORTABLE NARD VSS. CT PENDING 03/28/18 15:48 D/W DR LERMA: STATES DUE TO TECHNICAL MALFXN PT DID NOT RECEIVE IVC AND WAS SCANNED TWICE. UNABLE TO REPEAT CT >24 HRS DUE TO CONCERN FOR OVERRADIATION. D/W DR Airel WILLINGHAM AWARE OF ER FINDINGS WILL ADMIT - Data Reviewed Data Reviewed: Lab, Diagnostic imaging, EKG, Old records Medical Decision Making Medical Decision Making: Plan: --Labs --CT Chest --EKG --Chest X-Ray --Dilaudid --IV Fluids --Urinalysis Disposition Counseled Patient/Family Regarding: Studies Performed, Diagnosis - Disposition Disposition: HOSPITALIZED Disposition Time: 15:50 Condition: STABLE - POA Present On Arrival: None - Clinical Impression Clinical Impression: Chronic pain, Sickle cell crisis, Chest pain, Intractable pain - Scribe Statement The provider has reviewed the documentation as recorded by the Rosa Cervantes Provider Attestation: All medical record entries made by the Rosa were at my direction and person ally dictated by me. I have reviewed the chart and agree that the record accurately reflects my personal performance of the history, physical exam, medical decision making, and the department course for this patient. I have also personally directed, reviewed, and agree with the discharge instructions and disposition.
[2018-03-28] MEDS ORDERED: SODIUM CHLORIDE 0.9% IV ONE (13:09)
[2018-03-28] MEDS ORDERED: HYDROmorphone 0.5 mg/0.5 ml ISec IVP STA (13:11)
[2018-03-28] MEDS ORDERED: Iodixanol 320 MG/ML 100 ML BOTTLE IV ONE (13:33)
--- NOTE | 2018-03-28 13:37 | RAD ---
HISTORY: chest pain ho sickle COMPARISON: Chest x-ray performed 03/23/18 TECHNIQUE: Chest PA and lateral FINDINGS: Right-sided MediPort extends the cavoatrial junction. LUNGS: No focal consolidation. Please note that chest x-ray has limited sensitivity for the detection of pulmonary masses. PLEURA: No significant pleural effusion identified. No definite pneumothorax . CARDIOVASCULAR: Heart size appears within normal limits. OSSEOUS STRUCTURES: No acute osseous abnormality identified. VISUALIZED UPPER ABDOMEN: Unremarkable. OTHER FINDINGS: Left upper quadrant/epigastric surgical clips. IMPRESSION: Right-sided MediPort.
[2018-03-28 14:10] LABS: VENOUS BLOOD GAS BASE EXCESS 1.7 mmol/L (0.0-2.0); VENOUS BLOOD GAS PCO2 38 mmHg (40-60); VENOUS BLOOD GAS PO2 31 mm/Hg (30-55); VENOUS BLOOD PH 7.44 (7.32-7.43)
[2018-03-28 14:14] LABS: BASO # 0.2 K/uL (0.0-0.2); BASO % 0.9 % (0.0-2.0); EOS # 0.2 K/uL (0.0-0.7); EOS % 0.8 % (0.0-4.0); HEMOGLOBIN 7.7 g/dL (11.0-16.0); LYMPH # 6.6 K/uL (1.0-4.3); LYMPH % 33.3 % (20.0-40.0); MEAN CORPUSCULAR HEMOGLOBIN 34.6 pg (27.0-31.0); MEAN CORPUSCULAR HGB CONC 34.2 g/dL (33.0-37.0); MEAN PLATELET VOLUME 8.5 fL (7.2-11.7); MONO # 1.3 K/uL (0.0-0.8); MONO % 6.6 % (0.0-10.0); NEUT # 11.5 K/uL (1.8-7.0); NEUT % 58.4 % (50.0-75.0); PLATELET COUNT 298 K/uL (130-400); RBC 2.24 Mil/uL (3.80-5.20); RED CELL DISTRIBUTION WIDTH 26.8 % (11.5-14.5); WHITE BLOOD COUNT 19.7 K/uL (4.8-10.8)
[2018-03-28 14:17] LABS: URINE BILIRUBIN NEGATIVE (NEGATIVE); URINE BLOOD NEGATIVE (NEGATIVE); URINE CLARITY Clear (Clear); URINE COLOR Yellow (YELLOW); URINE GLUCOSE (UA) NORMAL (Normal); URINE LEUKOCYTE ESTERASE NEG Leu/uL (Negative); URINE PROTEIN NEGATIVE (NEGATIVE)
[2018-03-28 14:22] LABS: INR 1.3; PROTHROMBIN TIME 14.2 SECONDS (9.7-12.2)
[2018-03-28 14:36] LABS: ALB/GLOB RATIO 1.3 (1.0-2.1); ALBUMIN 4.2 g/dL (3.5-5.0); ALT/SGPT 140 U/L (9-52); AST/SGOT 83 U/L (14-36); BLOOD UREA NITROGEN 10 mg/dL (7-17); CALCIUM 9.8 mg/dl (8.6-10.4); GFR NON-AFRICAN AMERICAN > 60
[2018-03-28 14:49] LABS: NUCLEATED RED BLOOD CELL 1 % (0-0); TOTAL CELLS COUNTED 100
[2018-03-28 14:50] LABS: LYMPHOCYTE 31 % (20-40); MONOCYTE 6 % (0-10); NEUTROPHIL 63 % (50-75); PLATELET ESTIMATE NORMAL (NORMAL)
[2018-03-28 14:51] LABS: ANISOCYTOSIS MARKED
[2018-03-28 14:52] LABS: MICROCYTOSIS SLIGHT; POIKILOCYTOSIS MODERATE
[2018-03-28 14:53] LABS: POLYCHROMIC SLIGHT
[2018-03-28 14:55] LABS: OVALOCYTES SLIGHT; TARGET CELLS SLIGHT
[2018-03-28 14:57] LABS: HOWELL JOLLY BODIES SLIGHT; SCHISTOCYTES SLIGHT; SICKLE CELLS MODERATE
[2018-03-28 14:58] LABS: LARGE PLATELETS PRESENT; TEARDROP CELLS SLIGHT
--- NOTE | 2018-03-28 16:23 | CP.PCM.HP ---
Present on Admission - Present on Admission Any Indicators Present on Admission: No Past Patient History - Infectious Disease Hx of Infectious Diseases: None - Tetanus Immunizations Tetanus Immunization: Up to Date - Past Medical History & Family History Past Medical History?: Yes - Past Social History Smoking Status: Current Some Days Smoker - PULMONARY Hx Bronchitis: Yes Hx Pneumonia: Yes - HEENT Hx HEENT Problems: No - HEMATOLOGICAL/ONCOLOGICAL Hx Anemia: Yes Hx Sickle Cell Disease: Yes - INTEGUMENTARY Hx Dermatological Problems: No - GASTROINTESTINAL Hx Gall Bladder Disease: Yes - PSYCHIATRIC Hx Substance Use: Yes - SURGICAL HISTORY Hx Cholecystectomy: Yes - ANESTHESIA Hx Anesthesia: Yes Hx Anesthesia Reactions: No Hx Malignant Hyperthermia: No Meds Allergies/Adverse Reactions: Allergies Allergy/AdvReac Type Severity Reaction Status Date / Time FISH Allergy Severe RASH Verified 04/29/18 17:25 oxycodone Allergy Severe RASH Verified 04/29/18 17:25 tramadol Allergy Severe RASH Verified 04/29/18 17:25 ketorolac Allergy Intermediate RASH Verified 04/29/18 17:25 Physical Exam - Constitutional Appears: Well - Head Exam Head Exam: ATRAUMATIC, NORMAL INSPECTION, NORMOCEPHALIC - Eye Exam Eye Exam: EOMI, Normal appearance, PERRL Pupil Exam: NORMAL ACCOMODATION, PERRL - ENT Exam ENT Exam: Mucous Membranes Moist, Normal Exam - Neck Exam Neck exam: Positive for: Normal Inspection - Respiratory Exam Respiratory Exam: Decreased Breath Sounds - Cardiovascular Exam Cardiovascular Exam: REGULAR RHYTHM, +S1, +S2 - GI/Abdominal Exam GI & Abdominal Exam: Diminished Bowel Sounds, Soft - Rectal Exam Rectal Exam: Deferred Results - Vital Signs Recent Vital Signs: Last Vital Signs Temp 98.6 F 03/28/18 14:10 Pulse 74 03/28/18 16:04 Resp 15 03/28/18 16:04 BP 120/61 03/28/18 16:04 Pulse Ox 95 03/28/18 16:04 - Labs Result Diagrams: 03/30/18 05:33 03/30/18 05:33 Labs: Laboratory Results - last 24 hr 03/28/18 03/28/18 03/28/18 13:56 14:06 14:06 WBC 19.7 H RBC 2.24 L Hgb 7.7 L Hct 22.6 L MCV 101.0 H D MCH 34.6 H MCHC 34.2 RDW 26.8 H Plt Count 298 D MPV 8.5 Neut % (Auto) 58.4 Lymph % (Auto) 33.3 [place] % (Auto) 6.6 Eos % (Auto) 0.8 Baso % (Auto) 0.9 Neut # (Auto) 11.5 H Lymph # (Auto) 6.6 H [place] # (Auto) 1.3 H Eos # (Auto) 0.2 Baso # (Auto) 0.2 Neutrophils % (Manual) 63 Lymphocytes % (Manual) 31 Monocytes % (Manual) 6 Nucleated RBC % 1 H Platelet Estimate Normal Large Platelets Present Polychromasia Slight Poikilocytosis (manual Moderate Anisocytosis (manual) Marked Microcytosis (manual) Slight Macrocytosis (manual) Moderate Sickle Cells Moderate Target Cells Slight Tear Drop Cells Slight Ovalocytes Slight [place] Bodies Slight Schistocytes Slight Retic Count PT 14.2 H INR 1.3 APTT 35 H pO2 VBG pH VBG pCO2 VBG HCO3 VBG Total CO2 VBG O2 Sat (Calc) VBG Base Excess VBG Potassium Glucose Lactate Sodium 144 Potassium 3.9 Chloride 107 Carbon Dioxide 24 Anion Gap 17 BUN 10 Creatinine 0.4 L Est GFR ( Amer) > 60 Est GFR (Non-Af Amer) > 60 Random Glucose 91 Calcium 9.8 Total Bilirubin 2.3 H AST 83 H D ALT 140 H D Alkaline Phosphatase 202 H Troponin I < 0.0120 Total Protein 7.5 Albumin 4.2 Globulin 3.2 Albumin/Globulin Ratio 1.3 Venous Blood Potassium Urine Color Urine Clarity Urine pH Ur Specific Halls Urine Protein Urine Glucose (UA) Urine Ketones Urine Blood Urine Nitrate Urine Bilirubin Urine Urobilinogen Ur Leukocyte Esterase Urine WBC (Auto) Urine RBC (Auto) Blood Type Antibody Screen 03/28/18 03/28/18 03/28/18 14:06 14:06 14:06 WBC RBC Hgb Hct MCV MCH MCHC RDW Plt Count MPV Neut % (Auto) Lymph % (Auto) [place] % (Auto) Eos % (Auto) Baso % (Auto) Neut # (Auto) Lymph # (Auto) [place] # (Auto) Eos # (Auto) Baso # (Auto) Neutrophils % (Manual) Lymphocytes % (Manual) Monocytes % (Manual) Nucleated RBC % Platelet Estimate Large Platelets Polychromasia Poikilocytosis (manual Anisocytosis (manual) Microcytosis (manual) Macrocytosis (manual) Sickle Cells Target Cells Tear Drop Cells Ovalocytes [place] Bodies Schistocytes Retic Count 16.6 H PT INR APTT pO2 VBG pH VBG pCO2 VBG HCO3 VBG Total CO2 VBG O2 Sat (Calc) VBG Base Excess VBG Potassium Glucose Lactate Sodium Potassium Chloride Carbon Dioxide Anion Gap BUN Creatinine Est GFR ( Amer) Est GFR (Non-Af Amer) Random Glucose Calcium Total Bilirubin AST ALT Alkaline Phosphatase Troponin I Total Protein Albumin Globulin Albumin/Globulin Ratio Venous Blood Potassium Urine Color Yellow Urine Clarity Clear Urine pH 5.0 Ur Specific Hall[place] 1.011 Urine Protein Negative Urine Glucose (UA) Normal Urine Ketones Negative Urine Blood Negative Urine Nitrate Negative Urine Bilirubin Negative Urine Urobilinogen 2.0 H Ur Leukocyte Esterase Neg Urine WBC (Auto) 1 Urine RBC (Auto) 1 Blood Type A POSITIVE Antibody Screen Negative 03/28/18 14:07 WBC RBC Hgb Hct MCV MCH MCHC RDW Plt Count MPV Neut % (Auto) Lymph % (Auto) [place] % (Auto) Eos % (Auto) Baso % (Auto) Neut # (Auto) Lymph # (Auto) [place] # (Auto) Eos # (Auto) Baso # (Auto) Neutrophils % (Manual) Lymphocytes % (Manual) Monocytes % (Manual) Nucleated RBC % Platelet Estimate Large Platelets Polychromasia Poikilocytosis (manual Anisocytosis (manual) Microcytosis (manual) Macrocytosis (manual) Sickle Cells Target Cells Tear Drop Cells Ovalocytes [place] Bodies Schistocytes Retic Count PT INR APTT pO2 31 VBG pH 7.44 H VBG pCO2 38 L VBG HCO3 25.3 VBG Total CO2 27.0 VBG O2 Sat (Calc) 62.7 VBG Base Excess 1.7 VBG Potassium 4.0 Glucose 86 Lactate 0.6 L Sodium 141.0 Potassium Chloride 112.0 H Carbon Dioxide Anion Gap BUN Creatinine Est GFR ( Amer) Est GFR (Non-Af Amer) Random Glucose Calcium Total Bilirubin AST ALT Alkaline Phosphatase Troponin I Total Protein Albumin Globulin Albumin/Globulin Ratio Venous Blood Potassium 4.0 Urine Color Urine Clarity Urine pH Ur Specific [place]s Urine Protein Urine Glucose (UA) Urine Ketones Urine Blood Urine Nitrate Urine Bilirubin Urine Urobilinogen Ur Leukocyte Esterase Urine WBC (Auto) Urine RBC (Auto) Blood Type Antibody Screen Assessment & Plan (1) Abdominal pain Status: Acute (2) Abdominal pain Status: Acute (3) Abnormal LFTs Status: Acute (4) Admission for fitting of port-a-cath Status: Acute (5) Anemia Status: Acute (6) Anemia Status: Acute (7) Ankle sprain Status: Acute (8) Bug bites Status: Acute (9) Cannabis use disorder, mild, abuse Status: Acute (10) Chest pain Status: Acute (11) Chronic abdominal pain Status: Acute (12) Chronic pain Status: Acute (13) Chronic pain disorder Status: Acute (14) Constipation Status: Acute (15) Contusion of back Status: Acute (16) Contusion of hip, right Status: Acute (17) Dehydration Status: Acute (18) Drug-seeking behavior Status: Acute (19) Dysfunctional uterine bleeding Status: Acute (20) Dysuria Status: Acute (21) Elevated LFTs Status: Acute (22) Generalized pain Status: Acute (23) Headache Status: Acute (24) Hordeolum externum (stye) Status: Acute (25) Intractable pain Status: Acute (26) Iron overload due to repeated red blood cell transfusions Status: Acute (27) Leukocytosis Status: Acute (28) Liver lesion Status: Acute (29) Opioid abuse Status: Acute (30) Pain Status: Acute (31) Pain Status: Acute (32) Pain disorder Status: Acute (33) Pharyngitis Status: Acute (34) Pneumonia Status: Acute (35) Prophylactic measure Status: Acute (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 (37) Sickle cell anemia Status: Acute (38) Sickle cell anemia with pain Status: Acute (39) Sickle cell crisis Status: Acute (40) Sickle cell crisis Status: Acute (41) Sickle cell disease Status: Acute (42) Sickle cell pain crisis Status: Acute (43) Sickle cell pain crisis Status: Acute (44) Sickle cell trait Status: Acute (45) Sickle-cell disease with pain Status: Acute (46) 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 Status: Acute (47) Symptomatic anemia Status: Acute (48) Total body pain Status: Acute (49) UTI (urinary tract infection) Status: Acute (50) Uncontrolled pain Status: Acute (51) Vertigo Status: Acute (52) Viral upper respiratory infection Status: Acute (53) Weakness Status: Acute (54) Chronic pain Status: Chronic (55) Narcotic drug use Status: Chronic (56) Sickle cell anemia Status: Chronic (57) Splenectomy Status: Chronic (58) Transaminitis Status: Chronic (59) Drug abuse and dependence Status: Suspected (60) Drug-seeking behavior Status: Suspected - Assessment and Plan (Free Text) Plan: Patient seen and examined at bedside Labs and meds reviewed IV fluids Pain meds Chest x-ray WBC very high 19.7 Pain meds IV fluids Low hemoglobin Monitor H&H Follow-up with labs Watch for breathlessness
--- NOTE | 2018-03-28 16:26 | CT ---
Date of service: 03/28/2018 CT chest without IV contrast. Indication: Right chest pain, history of sickle cell Technique: Contiguous axial images were obtained through the chest with intravenous contrast enhancement. Sagittal and coronal reconstructions were generated and reviewed. This examination was meant to be performed as a CTA of the chest. Approximately 2 mL of IV contrast was injected during the 1st attempt before injection was aborted due to syringe air. Attempts to terminate imaging were unsuccessful. Upon 2nd attempt at CTA, problems with patient's tubing resulted in only approximately 22 mL of IV contrast being administered with remainder leaking outside of the patient. This was discussed with Dr. Tomas on 03/28/18 at the time of imaging. This CT exam was performed using 1 or more of the following dose reduction techniques: Automated exposure control, adjustment of the MAA and/or kV according to patient size, and/or use of iterative reconstruction technique. IV contrast: Approximately 22 mL of contrast. Radiation dose (DLP): 348.22 MGy-cm. Comparison: Chest x-ray performed 03/28/18 Findings: Right-sided MediPort extends to the right atrium. Visualized portions of the inferior thyroid gland appear unremarkable. The mediastinal and hilar vascular structures appear within normal limits. The heart appears within normal limits of size. Mild patchy/tree-in-bud like opacities within the right lower lobe. No focal consolidation. No pleural effusion. No pneumothorax. Limited visualized portions of the upper abdomen: 12 mm hypodense hepatic dome lesion measures approximately 36 HU, indeterminate. Increased attenuation throughout the liver. Left upper quadrant surgical clips, likely related to splenectomy. Cholecystectomy. No acute osseous abnormality is detected. Impression: Technical errors as delineated above precluded evaluation of the pulmonary arteries; examination is centrally noncontrast with minimal IV contrast administered. Right-sided MediPort. Mild patchy/tree-in-bud like opacities within the right lower lobe. Correlate for infectious/inflammatory etiologies. No focal consolidation, pleural effusion, or pneumothorax. Indeterminate 12 mm hypodense hepatic dome lesion. Increased attenuation throughout the liver. These findings were evident on CT of the abdomen and pelvis performed 09/28/17. Outpatient dedicated cross-sectional imaging may be considered for further characterization. Splenectomy. Cholecystectomy. Left upper quadrant surgical clips.
[2018-03-28] MEDS ORDERED: Sodium Chloride 0.9% 1,000 ML ONE (19:51)
[2018-03-28] MEDS ORDERED: DiphenhydrAMINE 50 mg/ml Inj ONE ×2 (19:51→23:14)
[2018-03-28] MEDS: DiphenhydrAMINE 50 mg/ml Inj IVP PRN ×2 (20:08→23:19)
[2018-03-28] MEDS: Sodium Chloride 0.9% 1,000 ML IV SCH (20:08)
[2018-03-29] MEDS ORDERED: DiphenhydrAMINE 50 mg/ml Inj ONE (02:49)
[2018-03-29] MEDS: DiphenhydrAMINE 50 mg/ml Inj IVP PRN ×6 (02:53→21:35)
[2018-03-29 05:32] LABS: MEAN PLATELET VOLUME 8.1 fL (7.2-11.7); RBC 1.9 Mil/uL (3.80-5.20); RED CELL DISTRIBUTION WIDTH 27.8 % (11.5-14.5); WHITE BLOOD COUNT 17.7 K/uL (4.8-10.8)
[2018-03-29] MEDS: Sodium Chloride 0.9% 1,000 ML IV SCH ×3 (05:33→23:20)
[2018-03-29 05:34] LABS: HEMOGLOBIN 6.5 g/dL (11.0-16.0)
[2018-03-29 05:48] LABS: ALB/GLOB RATIO 1.3 (1.0-2.1); ALBUMIN 3.4 g/dL (3.5-5.0); ALT/SGPT 134 U/L (9-52); AST/SGOT 95 U/L (14-36); BLOOD UREA NITROGEN 10 mg/dL (7-17); CALCIUM 8.6 mg/dl (8.6-10.4); GFR NON-AFRICAN AMERICAN > 60
[2018-03-29 06:40] LABS: CK-MB 0.37 ng/mL (0.0-3.38)
--- NOTE | 2018-03-29 15:03 | CP.PCM.PN ---
Subjective - Date & Time of Evaluation Date of Evaluation: 03/29/18 Time of Evaluation: 11:15 - Subjective Subjective: Patient is a 32 year old female with a PMHx of Sickle cell disease and vertigo who presents with a "sickle cell flare up". Patient reports pain throughout her body/lower back pain and chest pain that does not radiate for the last 3 days. Patient also reports a cold with associated runny nose, cough with white/clear phlegm that exacerbates the chest pain and SOB that has been ongoing for the past few days. Patient tried taking cough/cold medicine but reports it did not help. ROS: Admits to cough, SOB, chest pain, back pain. Denies abdominal pain, nausea, vomiting, diarrhea. CXR 03/28 - No significant pleural effusion. No pneumothorax. Otherwise unremarkable. CT Chest 03/28 - Mild patchy/tree-in-bud like opacities within the right lower lobe. No focal consolidation. No pleural effusions. No pneumothorax. PMHx: Sickle cell disease, vertigo Surgical Hx: Cholecystectomy 2007, Splenectomy 2008, Transfusions, Portacath placed in 2008, replaced in 2015 and 2016. Meds: Folic acid, Hydroxyurea, Pepcid, Naproxen, Meclizine Allergies: Percocet (hives), Toradol (hives), Tramadol (hives), Fish (hives) Fam Hx: Mother - sickle cell trait, HTN; Father - Sickle cell disease; Brother - sickle cell disease Social Hx: Currently unemployed and living with grandmother for now. Denies alcohol use. Admits to smoking cigarettes since age 21, smokes 2-3 a week. Admits to marijuana use, 2 joints per week. Objective - Vital Signs/Intake and Output Vital Signs (last 24 hours): Temp Pulse Resp BP Pulse Ox 97.8 F 71 13 110/71 96 03/29/18 14:00 03/29/18 14:00 03/29/18 14:00 03/29/18 14:00 03/29/18 06:38 Intake and Output: 03/29/18 03/29/18 06:59 18:59 Intake Total 340 0 Balance 340 0 - Medications Medications: Current Medications Diphenhydramine HCl (Benadryl) 25 mg IVP Q3 PRN PRN Reason: Itching / Pruritus Last Admin: 03/29/18 12:25 Dose: 25 mg Folic Acid (Folic Acid) 1 mg PO DAILY [facility] Last Admin: 03/29/18 09:36 Dose: 1 mg Hydromorphone HCl (Dilaudid) 2 mg IVP Q3 PRN PRN Reason: pain Last Admin: 03/29/18 12:26 Dose: 2 mg Hydroxyurea (Hydrea) 500 mg PO DAILY [facility] Last Admin: 03/29/18 09:36 Dose: 500 mg Sodium Chloride (Sodium Chloride 0.9%) 1,000 mls @ 100 mls/hr IV .Q10H [facility] Last Admin: 03/29/18 05:33 Dose: 100 mls/hr - Labs Labs: 03/29/18 05:26 03/29/18 05:26 PT 14.2 SECONDS (9.7-12.2) H 03/28/18 13:56 INR 1.3 03/28/18 13:56 APTT 35 SECONDS (21-34) H 03/28/18 13:56 - Head Exam Head Exam: ATRAUMATIC, NORMOCEPHALIC - ENT Exam ENT Exam: Mucous Membranes Moist - Respiratory Exam Respiratory Exam: Clear to Ausculation Bilateral - Cardiovascular Exam Cardiovascular Exam: REGULAR RHYTHM - GI/Abdominal Exam GI & Abdominal Exam: Soft Assessment and Plan (1) Sickle cell anemia with pain Assessment & Plan: continue pain medication Transfuse packed RBCs IV fluids No acute chest syndrome Followup if necessary Status: Acute
--- NOTE | 2018-03-29 18:56 | CP.PCM.PN ---
Subjective - Date & Time of Evaluation Date of Evaluation: 03/29/18 Time of Evaluation: 14:00 - Subjective Subjective: clinically same Objective - Vital Signs/Intake and Output Vital Signs (last 24 hours): Temp Pulse Resp BP Pulse Ox 97.9 F 65 17 123/70 99 03/29/18 17:00 03/29/18 18:00 03/29/18 17:00 03/29/18 17:00 03/29/18 14:00 Intake and Output: 03/29/18 03/29/18 06:59 18:59 Intake Total 340 325 Balance 340 325 - Medications Medications: Current Medications Diphenhydramine HCl (Benadryl) 25 mg IVP Q3 PRN PRN Reason: Itching / Pruritus Last Admin: 03/29/18 18:37 Dose: 25 mg Folic Acid (Folic Acid) 1 mg PO DAILY [facility] Last Admin: 03/29/18 09:36 Dose: 1 mg Hydromorphone HCl (Dilaudid) 2 mg IVP Q3 PRN PRN Reason: pain Last Admin: 03/29/18 18:33 Dose: 2 mg Hydroxyurea (Hydrea) 500 mg PO DAILY [facility] Last Admin: 03/29/18 09:36 Dose: 500 mg Sodium Chloride (Sodium Chloride 0.9%) 1,000 mls @ 100 mls/hr IV .Q10H [facility] Last Admin: 03/29/18 15:45 Dose: Not Given - Labs Labs: 03/29/18 05:26 03/29/18 05:26 PT 14.2 SECONDS (9.7-12.2) H 03/28/18 13:56 INR 1.3 03/28/18 13:56 APTT 35 SECONDS (21-34) H 03/28/18 13:56 - Constitutional Appears: Well - Head Exam Head Exam: ATRAUMATIC, NORMAL INSPECTION, NORMOCEPHALIC - Eye Exam Eye Exam: EOMI, Normal appearance, PERRL Pupil Exam: NORMAL ACCOMODATION, PERRL - ENT Exam ENT Exam: Mucous Membranes Moist, Normal Exam - Neck Exam Neck Exam: Full ROM, Normal Inspection. absent: Lymphadenopathy - Respiratory Exam Respiratory Exam: Decreased Breath Sounds - Cardiovascular Exam Cardiovascular Exam: REGULAR RHYTHM, +S1, +S2 - GI/Abdominal Exam GI & Abdominal Exam: Soft, Diminished Bowel Sounds - Rectal Exam Rectal Exam: Deferred Assessment and Plan (1) Abdominal pain Status: Acute (2) Abdominal pain Status: Acute (3) Abnormal LFTs Status: Acute (4) Admission for fitting of port-a-cath Status: Acute (5) Anemia Status: Acute (6) Anemia Status: Acute (7) Ankle sprain Status: Acute (8) Bug bites Status: Acute (9) Cannabis use disorder, mild, abuse Status: Acute (10) Chest pain Status: Acute (11) Chronic abdominal pain Status: Acute (12) Chronic pain Status: Acute (13) Chronic pain disorder Status: Acute (14) Constipation Status: Acute (15) Contusion of back Status: Acute (16) Contusion of hip, right Status: Acute (17) Dehydration Status: Acute (18) Drug-seeking behavior Status: Acute (19) Dysfunctional uterine bleeding Status: Acute (20) Dysuria Status: Acute (21) Elevated LFTs Status: Acute (22) Generalized pain Status: Acute (23) Headache Status: Acute (24) Hordeolum externum (stye) Status: Acute (25) Intractable pain Status: Acute (26) Iron overload due to repeated red blood cell transfusions Status: Acute (27) Leukocytosis Status: Acute (28) Liver lesion Status: Acute (29) Opioid abuse Status: Acute (30) Pain Status: Acute (31) Pain Status: Acute (32) Pain disorder Status: Acute (33) Pharyngitis Status: Acute (34) Pneumonia Status: Acute (35) Prophylactic measure Status: Acute (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 (37) Sickle cell anemia Status: Acute (38) Sickle cell anemia with pain Status: Acute (39) Sickle cell crisis Status: Acute (40) Sickle cell crisis Status: Acute (41) Sickle cell disease Status: Acute (42) Sickle cell pain crisis Status: Acute (43) Sickle cell pain crisis Status: Acute (44) Sickle cell trait Status: Acute (45) Sickle-cell disease with pain Status: Acute (46) 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 Status: Acute (47) Symptomatic anemia Status: Acute (48) Total body pain Status: Acute (49) UTI (urinary tract infection) Status: Acute (50) Uncontrolled pain Status: Acute (51) Vertigo Status: Acute (52) Viral upper respiratory infection Status: Acute (53) Weakness Status: Acute (54) Chronic pain Status: Chronic (55) Narcotic drug use Status: Chronic (56) Sickle cell anemia Status: Chronic (57) Splenectomy Status: Chronic (58) Transaminitis Status: Chronic (59) Drug abuse and dependence Status: Suspected (60) Drug-seeking behavior Status: Suspected - Assessment and Plan (Free Text) Plan: Patient seen and examined at bedside Labs and meds reviewed Pulmonary consult noted Meds as advised IV fluids Hydroxyurea Pain meds Very low hemoglobin PRBC transfusion
--- NOTE | 2018-03-29 23:07 | CARD ---
APPROVED REPORT Date of service: 03/28/2018 EKG Measurement Heart [id number] <Conclusion> Normal sinus rhythm Normal ECG
[2018-03-30] MEDS: DiphenhydrAMINE 50 mg/ml Inj IVP PRN ×8 (00:35→23:30)
[2018-03-30] MEDS: Sodium Chloride 0.9% 1,000 ML IV SCH ×4 (02:00→19:30)
[2018-03-30 05:48] LABS: BASO # 0.1 K/uL (0.0-0.2); BASO % 0.5 % (0.0-2.0); EOS # 0.4 K/uL (0.0-0.7); EOS % 2.8 % (0.0-4.0); LYMPH # 6.2 K/uL (1.0-4.3); LYMPH % 41.3 % (20.0-40.0); MEAN CELL VOLUME 94.8 fL (81.0-99.0); MEAN CORPUSCULAR HEMOGLOBIN 32.3 pg (27.0-31.0); MEAN CORPUSCULAR HGB CONC 34.1 g/dL (33.0-37.0); MEAN PLATELET VOLUME 8.8 fL (7.2-11.7); MONO # 1.4 K/uL (0.0-0.8); MONO % 9.5 % (0.0-10.0); NEUT # 6.9 K/uL (1.8-7.0); NEUT % 45.9 % (50.0-75.0); RBC 3.11 Mil/uL (3.80-5.20); RED CELL DISTRIBUTION WIDTH 19.9 % (11.5-14.5)
[2018-03-30 06:31] LABS: ALB/GLOB RATIO 1.4 (1.0-2.1); ALBUMIN 3.7 g/dL (3.5-5.0); ALT/SGPT 132 U/L (9-52); AST/SGOT 86 U/L (14-36); BLOOD UREA NITROGEN 16 mg/dL (7-17); CALCIUM 8.7 mg/dl (8.6-10.4); GFR NON-AFRICAN AMERICAN > 60
[2018-03-30] MEDS: Promethazine DM 12.5 mg-30 mg/10 ml Syrup PO SCH ×2 (13:30→18:28)
--- NOTE | 2018-03-30 18:41 | CP.PCM.PN ---
Subjective - Date & Time of Evaluation Date of Evaluation: 03/30/18 Time of Evaluation: 12:30 - Subjective Subjective: clinically same Objective - Vital Signs/Intake and Output Vital Signs (last 24 hours): Temp Pulse Resp BP Pulse Ox 98.8 F 89 14 134/77 98 03/30/18 12:00 03/30/18 12:00 03/30/18 12:00 03/30/18 12:00 03/30/18 12:00 Intake and Output: 03/30/18 03/30/18 06:59 18:59 Intake Total 1625 Output Total 1999 Balance -375 - Medications Medications: Current Medications Diphenhydramine HCl (Benadryl) 25 mg IVP Q3 PRN PRN Reason: Itching / Pruritus Last Admin: 03/30/18 16:31 Dose: 25 mg Folic Acid (Folic Acid) 1 mg PO DAILY [facility] Last Admin: 03/30/18 10:07 Dose: 1 mg Hydromorphone HCl (Dilaudid) 2 mg IVP Q3 PRN PRN Reason: pain Last Admin: 03/30/18 16:34 Dose: 2 mg Hydroxyurea (Hydrea) 500 mg PO DAILY [facility] Last Admin: 03/30/18 10:07 Dose: 500 mg Sodium Chloride (Sodium Chloride 0.9%) 1,000 mls @ 100 mls/hr IV .Q10H [facility] Last Admin: 03/30/18 12:35 Dose: Not Given Promethazine HCl/Dextromethorphan (Phenergan Dm Syrup) 10 ml PO TID [facility] Last Admin: 03/30/18 18:28 Dose: 10 ml - Labs Labs: 03/30/18 05:33 03/30/18 05:33 PT 14.2 SECONDS (9.7-12.2) H 03/28/18 13:56 INR 1.3 03/28/18 13:56 APTT 35 SECONDS (21-34) H 03/28/18 13:56 - Constitutional Appears: Well - Head Exam Head Exam: ATRAUMATIC, NORMAL INSPECTION, NORMOCEPHALIC - Eye Exam Eye Exam: EOMI, Normal appearance, PERRL Pupil Exam: NORMAL ACCOMODATION, PERRL - ENT Exam ENT Exam: Mucous Membranes Moist, Normal Exam - Neck Exam Neck Exam: Full ROM, Normal Inspection. absent: Lymphadenopathy - Respiratory Exam Respiratory Exam: Decreased Breath Sounds - Cardiovascular Exam Cardiovascular Exam: REGULAR RHYTHM, +S1, +S2 - GI/Abdominal Exam GI & Abdominal Exam: Soft, Diminished Bowel Sounds - Rectal Exam Rectal Exam: Deferred Assessment and Plan (1) Abdominal pain Status: Acute (2) Abdominal pain Status: Acute (3) Abnormal LFTs Status: Acute (4) Admission for fitting of port-a-cath Status: Acute (5) Anemia Status: Acute (6) Anemia Status: Acute (7) Ankle sprain Status: Acute (8) Bug bites Status: Acute (9) Cannabis use disorder, mild, abuse Status: Acute (10) Chest pain Status: Acute (11) Chronic abdominal pain Status: Acute (12) Chronic pain Status: Acute (13) Chronic pain disorder Status: Acute (14) Constipation Status: Acute (15) Contusion of back Status: Acute (16) Contusion of hip, right Status: Acute (17) Dehydration Status: Acute (18) Drug-seeking behavior Status: Acute (19) Dysfunctional uterine bleeding Status: Acute (20) Dysuria Status: Acute (21) Elevated LFTs Status: Acute (22) Generalized pain Status: Acute (23) Headache Status: Acute (24) Hordeolum externum (stye) Status: Acute (25) Intractable pain Status: Acute (26) Iron overload due to repeated red blood cell transfusions Status: Acute (27) Leukocytosis Status: Acute (28) Liver lesion Status: Acute (29) Opioid abuse Status: Acute (30) Pain Status: Acute (31) Pain Status: Acute (32) Pain disorder Status: Acute (33) Pharyngitis Status: Acute (34) Pneumonia Status: Acute (35) Prophylactic measure Status: Acute (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 (37) Sickle cell anemia Status: Acute (38) Sickle cell anemia with pain Status: Acute (39) Sickle cell crisis Status: Acute (40) Sickle cell crisis Status: Acute (41) Sickle cell disease Status: Acute (42) Sickle cell pain crisis Status: Acute (43) Sickle cell pain crisis Status: Acute (44) Sickle cell trait Status: Acute (45) Sickle-cell disease with pain Status: Acute (46) 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 Status: Acute (47) Symptomatic anemia Status: Acute (48) Total body pain Status: Acute (49) UTI (urinary tract infection) Status: Acute (50) Uncontrolled pain Status: Acute (51) Vertigo Status: Acute (52) Viral upper respiratory infection Status: Acute (53) Weakness Status: Acute (54) Chronic pain Status: Chronic (55) Narcotic drug use Status: Chronic (56) Sickle cell anemia Status: Chronic (57) Splenectomy Status: Chronic (58) Transaminitis Status: Chronic (59) Drug abuse and dependence Status: Suspected (60) Drug-seeking behavior Status: Suspected - Assessment and Plan (Free Text) Plan: Patient seen and examined at bedside Events noted S/P PRBC transfusion Hemoglobin 10 Maintain hydration Hydroxyurea Pain meds Folic acid Close monitoring
[2018-03-30 23:02] VITALS: RESP 20
[2018-03-31] MEDS: DiphenhydrAMINE 50 mg/ml Inj IVP PRN ×6 (02:30→17:52)
[2018-03-31] MEDS: Promethazine DM 12.5 mg-30 mg/10 ml Syrup PO SCH ×3 (10:45→18:14)
--- NOTE | 2018-03-31 13:35 | CP.PCM.PN ---
Subjective - Date & Time of Evaluation Date of Evaluation: 03/31/18 Time of Evaluation: 13:35 - Subjective Subjective: PATIENT SEEN AND EXAMINED AT THE BEDSIDE Objective - Vital Signs/Intake and Output Vital Signs (last 24 hours): Temp Pulse Resp BP Pulse Ox 98.2 F 69 20 119/80 96 03/31/18 08:42 03/31/18 08:42 03/31/18 08:42 03/31/18 08:42 03/31/18 08:42 Intake and Output: 03/31/18 03/31/18 06:59 18:59 Intake Total 1400 Output Total 1700 Balance -300 - Medications Medications: Current Medications Diphenhydramine HCl (Benadryl) 25 mg IVP Q3 PRN PRN Reason: Itching / Pruritus Last Admin: 03/31/18 11:49 Dose: 25 mg Folic Acid (Folic Acid) 1 mg PO DAILY [facility] Last Admin: 03/31/18 10:45 Dose: 1 mg Hydromorphone HCl (Dilaudid) 2 mg IVP Q3 PRN PRN Reason: pain Last Admin: 03/31/18 11:51 Dose: 2 mg Hydroxyurea (Hydrea) 500 mg PO DAILY [facility] Last Admin: 03/31/18 10:45 Dose: 500 mg Sodium Chloride (Sodium Chloride 0.9%) 1,000 mls @ 100 mls/hr IV .Q10H [facility] Last Admin: 03/30/18 19:30 Dose: 100 mls/hr Promethazine HCl/Dextromethorphan (Phenergan Dm Syrup) 10 ml PO TID TALIA Last Admin: 03/31/18 10:45 Dose: 10 ml - Labs Labs: 03/30/18 05:33 03/30/18 05:33 PT 14.2 SECONDS (9.7-12.2) H 03/28/18 13:56 INR 1.3 03/28/18 13:56 APTT 35 SECONDS (21-34) H 03/28/18 13:56 Assessment and Plan - Assessment and Plan (Free Text) Assessment: FOLLOW UP WITH DR Ariel WILLINGHAM IN HIS OFFICE ---CALL FOR APPOINTMENT FOLLOW UP WITH DR ARMANDO IN HIS OFFICE ----CALL FOR APPOINTMENT CONTINUE HOME MEDICATION ACTIVITY TOLERATED CALL DR Ariel WILLINGHAM OR GO TO THE EMERGENCY ROOM IF SYMPTOM RETURN OE R WORSENING
[2018-03-31 15:54] VITALS: BP 129/86; PULSE 80; TEMP 98.3; O2SAT 95
== END 2018-03-31 19:04 | disposition home or self-care (01) | DRG 395 ==
LOC: C.ER 12:20 → C.9E 15:55 → C.9I 03-29 05:41 → OBSVTOIN 03-30 18:53 → C.5S 03-31 06:05
PROVIDERS: ADMIT Internal Medicine Nephrology; ATTEND Internal Medicine Nephrology
PROC: 30233N1 Transfusion of Nonautologous Red Blood Cells into Peripheral Vein, Percutaneous Approach (ICD-10-PCS; principal; 2018-03-30)
DX: D57.00 Hb-SS disease with crisis, unspecified (principal); F17.210 Nicotine dependence, cigarettes, uncomplicated; G89.29 Other chronic pain; F12.90 Cannabis use, unspecified, uncomplicated; Z90.81 Acquired absence of spleen; Z87.01 Personal history of pneumonia (recurrent); Z90.49 Acquired absence of other specified parts of digestive tract; Z83.2 Family history of diseases of the blood and blood-forming organs and certain disorders involving the immune mechanism; Z82.49 Family history of ischemic heart disease and other diseases of the circulatory system

== ENCOUNTER 2018-04-05 08:14 | Emergency (ER) | payer MEDICAID ==
[2018-04-05 08:15] VITALS: BMI 22.4
[2018-04-05 08:28] VITALS: RESP 18; O2SAT 100
[2018-04-05] MEDS ORDERED: Sodium Chloride 0.9% 1,000 ML IV ONE (08:47)
[2018-04-05] MEDS ORDERED: Sodium Chloride 0.9% 1,000 ML ONE (08:56)
[2018-04-05 09:18] LABS: BASO # 0.2 K/uL (0.0-0.2); BASO % 1.4 % (0.0-2.0); EOS # 0.2 K/uL (0.0-0.7); EOS % 1.8 % (0.0-4.0); HEMOGLOBIN 9.5 g/dL (11.0-16.0); LYMPH # 2.7 K/uL (1.0-4.3); LYMPH % 24.3 % (20.0-40.0); MEAN CELL VOLUME 90.3 fL (81.0-99.0); MEAN CORPUSCULAR HEMOGLOBIN 31.2 pg (27.0-31.0); MEAN CORPUSCULAR HGB CONC 34.5 g/dL (33.0-37.0); MEAN PLATELET VOLUME 8.8 fL (7.2-11.7); NEUT # 7.1 K/uL (1.8-7.0); NEUT % 63.5 % (50.0-75.0); NRBC % 0.1 % (0.0-2.0); RBC 3.05 Mil/uL (3.80-5.20); RED CELL DISTRIBUTION WIDTH 17.1 % (11.5-14.5); WHITE BLOOD COUNT 11.1 K/uL (4.8-10.8)
--- NOTE | 2018-04-05 09:19 | C.PDOC ---
History Of Present Illness 32-year-old female, PMHx includes Sickle cell disease presents to ED with c/o generalized body pain. Patient has a Hx of multiple visits to ED for same complaint. She was recently discharged from the hospital on 03/31, after being a dmitted for chronic pain and sickle cell crisis. Patient denies trauma/injuries, nausea, vomiting, diarrhea, headache, fever, chills, chest pain, SOB or any other complaints. Time Seen by Provider: 04/05/18 08:23 Chief Complaint (Nursing): Pain, Chronic History Per: Patient History/Exam Limitations: no limitations Onset/Duration Of Symptoms: Days (1) Current Symptoms Are (Timing): Still Present Severity: Moderate Past Medical History Reviewed: Historical Data, Nursing Documentation, Vital Signs Vital Signs: Last Vital Signs Temp 97.8 F 04/05/18 08:21 Pulse 80 04/05/18 08:21 Resp 18 04/05/18 08:21 BP 124/84 04/05/18 08:21 Pulse Ox 100 04/05/18 08:21 - Medical History PMH: Anemia, Bronchitis, Gall Bladder Disease, Pneumonia, Sickle Cell Disease Surgical History: Cholecystectomy - [facility] Procedures INFLUENZA VACCINATION (03/16/12) INJECT/INFUSE ELECTROLYT (09/07/13) INJECT/INFUSE NEC (01/25/14) INSERT VAD RESERVOIR IN CHEST SUBCU/FASCIA, OPEN (05/31/17) INSERTION OF INFUSION DEV INTO SUP VENA CAVA, PERC APPROACH (01/25/17) NEBULIZER THERAPY (12/02/13) PACKED CELL TRANSFUSION (02/12/15) REMOVAL OF VAD FROM TRUNK SUBCU/FASCIA, OPEN APPROACH (04/15/16) TRANSFUSE NONAUT RED BLOOD CELLS IN PERIPH VEIN, PERC (03/30/18) VACCINATION NEC (08/22/13) Family History: States: No Known Family Hx - Social History Hx Tobacco Use: No Hx Alcohol Use: No Hx Substance Use: Yes (marijuana last sat) - Immunization History Hx Tetanus Toxoid Vaccination: Yes (2014) Hx Influenza Vaccination: Yes (2017) Hx Pneumococcal Vaccination: Yes (2014) Review Of Systems Constitutional: Positive for: Malaise, Other (body pain). Negative for: Fever, Chills Cardiovascular: Negative for: Chest Pain, Palpitations Respiratory: Negative for: Cough Gastrointestinal: Negative for: Nausea, Vomiting, Abdominal Pain, Diarrhea Musculoskeletal: Negative for: Back Pain Skin: Negative for: Rash Neurological: Negative for: Weakness, Numbness, Headache, Dizziness Physical Exam - Physical Exam Appears: Well, Non-toxic, No Acute Distress Skin: Warm, Dry, No Rash Head: Atraumatic Eye(s): bilateral: Normal Inspection Oral Mucosa: Moist Cardiovascular: Rhythm Regular, No Murmur Respiratory: Normal Breath Sounds, No Rales, No Rhonchi, No Wheezing Gastrointestinal/Abdominal: Normal Exam, Bowel Sounds, Soft, No Tenderness Extremity: Normal ROM, No Deformity Extremity: Bilateral: Atraumatic, Normal Color And Temperature, Normal ROM Neurological/Psych: Oriented x3 ED Course And Treatment - Laboratory Results Result Diagrams: 04/05/18 09:11 04/05/18 09:11 O2 Sat by Pulse Oximetry: 100 (RA) Pulse Ox Interpretation: Normal Progress Note: Blood work, UA, Upreg ordered and reviewed. Patient given PO medications and IV NS bolus as per sickle cell protocol. Reevaluation Time: 11:40 Reassessment Condition: Improved (On reassessment, patient states she feels better and would like to be discharged home. Patient instructed to follow up with PMD in 1-2 days, and understands she should return to ED if symptoms worsen.) Disposition Counseled Patient/Family Regarding: Studies Performed, Diagnosis, Need For Followup - Disposition Referrals: Enzo Louis MD [Staff Provider] - Disposition: HOME/ ROUTINE Disposition Time: 11:40 Condition: STABLE Additional Instructions: FOLLOW UP WITH YOUR DOCTOR IN 1-2 DAYS RETURN TO ER IF SYMPTOMS WORSEN Instructions: Sickle Cell Disease (DC) Forms: [employer] (Citizen Of [place]) Print Language: [place] - Clinical Impression Clinical Impression: Sickle cell crisis, Sickle cell disease - Scribe Statement The provider has reviewed the documentation as recorded by the Scribe (Anika Shearer) Provider Attestation: All medical record entries made by the Scribe were at my direction and personally dictated by me. I have reviewed the chart and agree that the record accurately reflects my personal performance of the history, physical exam, medical decision making, and the department course for this patient. I have also personally directed, reviewed, and agree with the discharge instructions and disposition.
[2018-04-05 09:25] LABS: HCG,QUALITATIVE URINE NEGATIVE (NEGATIVE); SQUAMOUS EPITHIAL 2 /hpf (0-5); URINE BACTERIA RARE (<OCC); URINE BILIRUBIN NEGATIVE (NEGATIVE); URINE BLOOD NEGATIVE (NEGATIVE); URINE CLARITY Clear (Clear); URINE COLOR Yellow (YELLOW); URINE GLUCOSE (UA) NORMAL (Normal); URINE LEUKOCYTE ESTERASE NEG Leu/uL (Negative); URINE PROTEIN NEGATIVE (NEGATIVE); URINE UROBILINOGEN NORMAL mg/dL (0.2-1.0)
[2018-04-05 09:26] LABS: ALB/GLOB RATIO 1.5 (1.0-2.1); ALBUMIN 4.3 g/dL (3.5-5.0); ALT/SGPT 135 U/L (9-52); AST/SGOT 100 U/L (14-36); BLOOD UREA NITROGEN 13 mg/dL (7-17); CALCIUM 9.5 mg/dl (8.6-10.4); GFR NON-AFRICAN AMERICAN > 60
[2018-04-05 10:33] VITALS: PULSE 78
[2018-04-05 11:52] VITALS: BP 123/81; TEMP 98.2
== END 2018-04-05 11:48 | disposition home or self-care (01) ==
LOC: C.ER 08:14
DX: D57.00 Hb-SS disease with crisis, unspecified (principal)
CPT/HCPCS: 80053; 81001; 84703; 85025; 85044; 96360; 99285; J7030

== ENCOUNTER 2018-04-08 11:22 | Emergency (ER) | payer MEDICAID ==
[2018-04-08 11:22] VITALS: BMI 22.4
[2018-04-08 11:36] VITALS: O2SAT 99
[2018-04-08] MEDS ORDERED: Morphine 10 mg/5 ml Oral Soln PO STA (12:37)
--- NOTE | 2018-04-08 13:01 | RAD ---
Date of service: 04/08/2018 PROCEDURE: Right Ankle Radiographs. HISTORY: injury COMPARISON: None available. FINDINGS: BONES: Normal. No fracture. JOINTS: Normal. No osteoarthritis. Ankle mortise maintained. Talar dome intact SOFT TISSUES: Soft tissue swelling OTHER FINDINGS: None. IMPRESSION: No fracture or dislocation is suggested. Mild soft tissue swelling in the area of interest is noted.
[2018-04-08 13:15] LABS: BASO # 0.1 K/uL (0.0-0.2); BASO % 0.8 % (0.0-2.0); EOS # 0.3 K/uL (0.0-0.7); EOS % 1.9 % (0.0-4.0); HEMOGLOBIN 9.2 g/dL (11.0-16.0); LYMPH # 6.1 K/uL (1.0-4.3); LYMPH % 34.8 % (20.0-40.0); MEAN CORPUSCULAR HEMOGLOBIN 31.1 pg (27.0-31.0); MEAN CORPUSCULAR HGB CONC 33.6 g/dL (33.0-37.0); MEAN PLATELET VOLUME 8.2 fL (7.2-11.7); MONO # 2.1 K/uL (0.0-0.8); MONO % 11.9 % (0.0-10.0); NEUT # 8.9 K/uL (1.8-7.0); NEUT % 50.6 % (50.0-75.0); NRBC % 0.2 % (0.0-2.0); RBC 2.95 Mil/uL (3.80-5.20); RED CELL DISTRIBUTION WIDTH 18.3 % (11.5-14.5)
--- NOTE | 2018-04-08 13:16 | C.PDOC ---
History Of Present Illness 32 y/o female with history of sickle cell disease, chronic pain, narcotic addiction, presents to ED today for evaluation of general body pain since today AM and right ankle pain developed since yesterday. Patient states, she twisted her right ankle while walking yesterday. Patient is ambulatory at ED now. Pt denies fever, chills, headache, dizziness, visual changes, focal deficits, CP, SOB, dyspnea, palpitation, diaphoresis, abd. pain, nausea, vomiting, denies obvious deformity, weakness, sensory or vascular deficits to RIght ankle. Ambulatory in ED. Time Seen by Provider: 04/08/18 12:33 Chief Complaint (Nursing): Pain, Chronic History Per: Patient History/Exam Limitations: no limitations Onset/Duration Of Symptoms: Hrs Current Symptoms Are (Timing): Still Present Past Medical History Reviewed: Historical Data, Nursing Documentation, Vital Signs Vital Signs: Last Vital Signs Temp 98.6 F 04/08/18 11:32 Pulse 102 H 04/08/18 11:32 Resp 18 04/08/18 11:32 BP 119/82 04/08/18 11:32 Pulse Ox 99 04/08/18 11:32 - Medical History PMH: Anemia, Bronchitis, Gall Bladder Disease, Pneumonia, Sickle Cell Disease Surgical History: Cholecystectomy - [facility] Procedures INFLUENZA VACCINATION (03/16/12) INJECT/INFUSE ELECTROLYT (09/07/13) INJECT/INFUSE NEC (01/25/14) INSERT VAD RESERVOIR IN CHEST SUBCU/FASCIA, OPEN (05/31/17) INSERTION OF INFUSION DEV INTO SUP VENA CAVA, PERC APPROACH (01/25/17) NEBULIZER THERAPY (12/02/13) PACKED CELL TRANSFUSION (02/12/15) REMOVAL OF VAD FROM TRUNK SUBCU/FASCIA, OPEN APPROACH (04/15/16) TRANSFUSE NONAUT RED BLOOD CELLS IN PERIPH VEIN, PERC (03/30/18) VACCINATION NEC (08/22/13) Family History: States: No Known Family Hx - Social History Hx Tobacco Use: No Hx Alcohol Use: No Hx Substance Use: Yes (marijuana last sat) - Immunization History Hx Tetanus Toxoid Vaccination: Yes (2014) Hx Influenza Vaccination: Yes (2017) Hx Pneumococcal Vaccination: Yes (2014) Review Of Systems Constitutional: Negative for: Fever, Chills Cardiovascular: Positive for: Chest Pain Respiratory: Negative for: Cough, Shortness of Breath Musculoskeletal: Positive for: Foot Pain, Other (general body pain) Skin: Negative for: Rash, Bruising Physical Exam - Physical Exam Appears: Well, Non-toxic, No Acute Distress Skin: Warm, Dry, No Rash Head: Atraumatic, Normacephalic Eye(s): bilateral: PERRL Ear(s): Bilateral: Normal Nose: No Flaring, No Discharge Oral Mucosa: Moist, No Dry, No Drooling Tongue: Normal Appearing Lips: Normal Appearing Throat: No Erythema, No Drooling Neck: Trachea Midline, Supple Cardiovascular: Rhythm Regular, No Murmur, No JVD Respiratory: No Decreased Breath Sounds, No Accessory Muscle Use, No Rales, No Rhonchi, No Stridor, No Wheezing Gastrointestinal/Abdominal: Soft, No Tenderness, No Distention, No Guarding, No Rebound Back: No CVA Tenderness, No Vertebral Tenderness Extremity: Normal ROM (RLE), Tenderness (right lateral malleolus), No Calf Tenderness, Capillary Refill (<2 seconds), No Deformity, Swelling (to right lateral malleolus) Neurological/Psych: Oriented x3, Normal Speech, Normal Cognition, Normal Motor, Normal Sensation, Normal Reflexes ED Course And Treatment - Laboratory Results Result Diagrams: 04/08/18 13:10 04/08/18 13:10 Lab Interpretation: No Changes Compared To Prior Results Urine POC: Negative O2 Sat by Pulse Oximetry: 99 (RA) Pulse Ox Interpretation: Normal - Other Rad Right ankle X-Ray: Read By Radiologist Interpretation: IMPRESSION: No fracture or dislocation is suggested. Mild soft tissue swelling in the area of interest is noted. Progress Note: On re-eval, pt is afebrile, hemodynamicaly stable. Non-toxic, tolerate po well in ED. AMbulatory in ED with stable gait. Neck: Supple, (-) JVD. Lungs: CTA B/L, BS equal B/L. Abd: benign,. back: (-) CVA tenderness. Right ankle: mild tenderness, edema over lateral malleolus. FAROM, no deformity, no neurovascular deficits. Blood work review, mild leukocytosis, Hb/Hct- baseline. ret 6- baseline. Imaging- no acute fx. Air cast applied to Right ankle. At advised and ref. to F/u with PMD, Podiatry in 2-3 days for re-eval. return if any new changes. Disposition Counseled Patient/Family Regarding: Studies Performed, Diagnosis, Need For Followup - Disposition Referrals: [facility] [Outside] Disposition: HOME/ ROUTINE Disposition Time: 14:01 Condition: STABLE Additional Instructions: RICE-rest, ice, compression, elevation Follow up with Podiatry Clinic in 2-3 days for re-evaluation. return to ED if any new changes. Instructions: Sickle Cell Disease, Ankle Sprain, Chronic Pain Forms: [employer] (Korean) - Clinical Impression Clinical Impression: Chronic pain disorder, Ankle sprain - PA / [employer] / Resident Statement MD/DO has reviewed & agrees with the documentation as recorded. - Scribe Statement The provider has reviewed the documentation as recorded by the Rosa Rodriguez All medical record entries made by the Rosa were at my direction and personally dictated by me. I have reviewed the chart and agree that the record accurately reflects my personal performance of the history, physical exam, medical decision making, and the department course for this patient. I have also personally directed, reviewed, and agree with the discharge instructions and disposition.
[2018-04-08 13:18] LABS: MEAN CELL VOLUME 92.5 fL (81.0-99.0); WHITE BLOOD COUNT 17.6 K/uL (4.8-10.8)
[2018-04-08 13:30] LABS: BLOOD UREA NITROGEN 10 mg/dL (7-17); CALCIUM 9.6 mg/dl (8.6-10.4); GFR NON-AFRICAN AMERICAN > 60
[2018-04-08 14:57] VITALS: BP 115/80; PULSE 95; RESP 16; TEMP 98.4
== END 2018-04-08 14:56 | disposition home or self-care (01) ==
LOC: C.ER 11:22
DX: G89.29 Other chronic pain (principal); S93.401A Sprain of unspecified ligament of right ankle, initial encounter; X50.9XXA Other and unspecified overexertion or strenuous movements or postures, initial encounter; Y93.01 Activity, walking, marching and hiking

== ENCOUNTER 2018-04-19 07:32 | Emergency (ER) | payer MEDICAID ==
[2018-04-19 07:32] VITALS: BMI 22.4
--- NOTE | 2018-04-19 07:53 | C.PDOC ---
History Of Present Illness 32 y/o female presents to the ER complaining of recurrent generalized body pain which has been present since yesterday. Patient is also complaining of suprapubic abdominal pain. She notes that she has burning with urination. Her last bm was yesterday. Denies having fever, chills, nausea,vomiting, hematuria, and constipation. Of note, patient is well known to [facility] ER for her chronic pain syndrome. Time Seen by Provider: 04/19/18 07:48 Chief Complaint (Nursing): Abdominal Pain History Per: Patient History/Exam Limitations: no limitations Onset/Duration Of Symptoms: Days Current Symptoms Are (Timing): Still Present Severity: Moderate Past Medical History Reviewed: Historical Data, Nursing Documentation, Vital Signs Vital Signs: Last Vital Signs Temp 99 F 04/19/18 07:44 Pulse 86 04/19/18 07:44 Resp 16 04/19/18 07:44 BP 124/80 04/19/18 07:44 Pulse Ox 99 04/19/18 07:44 - Medical History PMH: Anemia, Bronchitis, Gall Bladder Disease, Pneumonia, Sickle Cell Disease Denies: Chronic Kidney Disease Surgical History: Cholecystectomy - [facility] Procedures INFLUENZA VACCINATION (03/16/12) INJECT/INFUSE ELECTROLYT (09/07/13) INJECT/INFUSE NEC (01/25/14) INSERT VAD RESERVOIR IN CHEST SUBCU/FASCIA, OPEN (05/31/17) INSERTION OF INFUSION DEV INTO SUP VENA CAVA, PERC APPROACH (01/25/17) NEBULIZER THERAPY (12/02/13) PACKED CELL TRANSFUSION (02/12/15) REMOVAL OF VAD FROM TRUNK SUBCU/FASCIA, OPEN APPROACH (04/15/16) TRANSFUSE NONAUT RED BLOOD CELLS IN PERIPH VEIN, PERC (03/30/18) VACCINATION NEC (08/22/13) Family History: States: No Known Family Hx - Social History Hx Tobacco Use: No Hx Alcohol Use: No Hx Substance Use: Yes (marijuana last sat) - Immunization History Hx Tetanus Toxoid Vaccination: Yes (2014) Hx Influenza Vaccination: Yes (2017) Hx Pneumococcal Vaccination: Yes (2014) Review Of Systems Except As Marked, All Systems Reviewed And Found Negative. Constitutional: Positive for: Malaise. Negative for: Fever, Chills Gastrointestinal: Positive for: Abdominal Pain. Negative for: Nausea, Vomiting, Constipation Genitourinary: Positive for: Dysuria. Negative for: Hematuria Physical Exam - Physical Exam Appears: Non-toxic, No Acute Distress Skin: Normal Color, Warm, Dry Head: Atraumatic, Normacephalic Eye(s): bilateral: Normal Inspection Cardiovascular: Rhythm Regular Respiratory: Other (NARD) Gastrointestinal/Abdominal: Normal Exam, Soft, No Tenderness, No Guarding, No Rebound Neurological/Psych: Oriented x3, Normal Speech ED Course And Treatment O2 Sat by Pulse Oximetry: 99 (RA) Pulse Ox Interpretation: Normal - Other Rad ABD X-Ray: Interpreted by Me (CONSTIPATION) Medical Decision Making Medical Decision Making: Plan: --[id number] --HCG, Qual. --UA Disposition Counseled Patient/Family Regarding: Studies Performed, Diagnosis, Need For Followup, Rx Given - Disposition Referrals: YOUR,PMD [Other] Disposition: HOME/ ROUTINE Disposition Time: 09:10 Condition: IMPROVED Prescriptions: Magnesium Citrate [[facility] Magnesium Citrate] 300 ml PO ONCE #1 bottle Instructions: Constipation, Adult (DC), Chronic Pain (DC) Forms: [employer] (Paraguayan) - Clinical Impression Clinical Impression: Constipation, Chronic abdominal pain - Scribe Statement The provider has reviewed the documentation as recorded by the Zacheryibe Greg Sheets Provider Attestation: All medical record entries made by the Scribe were at my direction and personally dictated by me. I have reviewed the chart and agree that the record accurately reflects my personal performance of the history, physical exam, medical decision making, and the department course for this patient. I have also personally directed, reviewed, and agree with the discharge instructions and d isposition.
[2018-04-19 08:11] LABS: SQUAMOUS EPITHIAL 1 /hpf (0-5); URINE BILIRUBIN NEGATIVE (NEGATIVE); URINE BLOOD NEGATIVE (NEGATIVE); URINE CLARITY Clear (Clear); URINE COLOR Straw (YELLOW); URINE GLUCOSE (UA) NORMAL (Normal); URINE LEUKOCYTE ESTERASE NEG Leu/uL (Negative); URINE PROTEIN NEGATIVE (NEGATIVE); URINE UROBILINOGEN NORMAL mg/dL (0.2-1.0)
[2018-04-19 09:33] VITALS: BP 117/77; PULSE 69; RESP 20; TEMP 97.9; O2SAT 98
--- NOTE | 2018-04-19 09:41 | RAD ---
Date of service: 04/19/2018 HISTORY: LOWER ABD PAIN RO CONSTIPATION COMPARISON: Comparison made with prior CT scan of the abdomen and pelvis dated 09/28/2017. FINDINGS: BOWEL: Metallic clips seen in the left upper and right upper/mid abdomen. No evidence of acute mechanical bowel obstruction... No gross free intraperitoneal air is identified on this noncontrast exam. BONES: Again noted is a are at least 2 rounded sclerotic lesion right iliac bone which may represent bone islands or osteomas... Spina bifida occulta S1 segment unchanged OTHER FINDINGS: None. IMPRESSION: No evidence of acute mechanical bowel obstruction.
== END 2018-04-19 09:51 | disposition home or self-care (01) ==
LOC: C.ER 07:32
DX: K59.00 Constipation, unspecified (principal); R10.9 Unspecified abdominal pain; G89.29 Other chronic pain

== ENCOUNTER 2018-04-23 17:07 | Emergency (ER) | payer MEDICAID ==
[2018-04-23 17:08] VITALS: BMI 22.4
--- NOTE | 2018-04-23 18:14 | C.PDOC ---
History Of Present Illness 32 year old female presents to the ED complaining of recurrent general body aches for one day. States "everything hurts today". Reports multiple frequent and recent ER visits for same presentation. Denies fever, nausea, vomiting. Complains of persistent dysuria. CO RECUR GEN BODY ACHES X 1 DAY. "EVERYTHING HURTS TODAY". MULT FREQ AND RECENT ER VISITS FOR SAME. NO FEVER, NV. CO PERSIST DYSURIA. EXAM NAD NONTOXIC ABD NEG REMAINDER NEG MDM PT EXAM NO SIG CHANGE FROM LAST EXAM BY ME. DEPT CHRONIC PAIN POLICY D/W PT AGAIN, STRONGLY ADVISED NEED FOR PAIN MGMT/PMD FU. VOICES UNDERSTANDING. Time Seen by Provider: 04/23/18 18:14 Chief Complaint (Nursing): Pain, Chronic History Per: Patient History/Exam Limitations: no limitations Onset/Duration Of Symptoms: Days (1) Current Symptoms Are (Timing): Still Present Reports Recently: Seen In ED Additional History Per: Prior Records Past Medical History Reviewed: Historical Data, Nursing Documentation, Vital Signs Vital Signs: Last Vital Signs Temp 98.7 F 04/23/18 17:10 Pulse 90 04/23/18 17:10 Resp 19 04/23/18 17:10 BP 103/59 L 04/23/18 17:10 Pulse Ox 98 04/23/18 17:10 - Medical History PMH: Anemia, Bronchitis, Gall Bladder Disease, Pneumonia, Sickle Cell Disease Denies: Chronic Kidney Disease Surgical History: Cholecystectomy - [facility] Procedures INFLUENZA VACCINATION (03/16/12) INJECT/INFUSE ELECTROLYT (09/07/13) INJECT/INFUSE NEC (01/25/14) INSERT VAD RESERVOIR IN CHEST SUBCU/FASCIA, OPEN (05/31/17) INSERTION OF INFUSION DEV INTO SUP VENA CAVA, PERC APPROACH (01/25/17) NEBULIZER THERAPY (12/02/13) PACKED CELL TRANSFUSION (02/12/15) REMOVAL OF VAD FROM TRUNK SUBCU/FASCIA, OPEN APPROACH (04/15/16) TRANSFUSE NONAUT RED BLOOD CELLS IN PERIPH VEIN, PERC (03/30/18) VACCINATION NEC (08/22/13) Family History: States: No Known Family Hx - Social History Hx Tobacco Use: No Hx Alcohol Use: No Hx Substance Use: Yes - Immunization History Hx Tetanus Toxoid Vaccination: Yes Hx Influenza Vaccination: Yes Hx Pneumococcal Vaccination: Yes Review Of Systems Except As Marked, All Systems Reviewed And Found Negative. Constitutional: Positive for: Other (body aches). Negative for: Fever Gastrointestinal: Negative for: Nausea, Vomiting Genitourinary: Positive for: Dysuria Physical Exam - Physical Exam Appears: Non-toxic, No Acute Distress Skin: Warm, Dry, No Rash Head: Normacephalic Eye(s): bilateral: Normal Inspection Nose: Normal Oral Mucosa: Moist Neck: Normal ROM, Supple Chest: Symmetrical Cardiovascular: Rhythm Regular Respiratory: Normal Breath Sounds, No Rales, No Rhonchi, No Wheezing Gastrointestinal/Abdominal: Soft, No Tenderness, No Guarding, No Rebound Extremity: Normal ROM Extremity: Bilateral: Atraumatic, Normal Color And Temperature, Normal ROM Neurological/Psych: Oriented x3, Normal Speech Gait: Steady ED Course And Treatment O2 Sat by Pulse Oximetry: 98 (RA) Pulse Ox Interpretation: Normal Progress Note: Patient treated with Dilaudid. Urine collected and sent to the lab for analysis. On reevaluation, patient reports feeling better. Patient instructed to follow up with Pain Management/PMD . Reassessment Condition: Improved Progress - Data Reviewed Data Reviewed: Lab, Old records Medical Decision Making Medical Decision Making: PT EXAM NO SIG CHANGE FROM LAST EXAM BY ME. DEPT CHRONIC PAIN POLICY D/W PT AGAIN, STRONGLY ADVISED NEED FOR PAIN MGMT/PMD FU. VOICES UNDERSTANDING Disposition Counseled Patient/Family Regarding: Studies Performed, Diagnosis, Need For Followup - Disposition Referrals: YOUR,PMD [Other] Disposition: HOME/ ROUTINE Disposition Time: 18:36 Condition: IMPROVED Prescriptions: Phenazopyridine HCl [Pyridium] 200 mg PO BID #6 tablet Instructions: Chronic Pain (DC), Dysuria, Adult (DC) Forms: [employer] (Argent[place]) - Clinical Impression Clinical Impression: Chronic pain, Dysuria - Scribe Statement The provider has reviewed the documentation as recorded by the Zacheryibvalarie Crawford All medical record entries made by the Zacheryibvalarie were at my direction and personally dictated by me. I have reviewed the chart and agree that the record accurately reflects my personal performance of the history, physical exam, medical decision making, and the department course for this patient. I have also personally directed, reviewed, and agree with the discharge instructions and disposition.
[2018-04-23 18:40] LABS: HCG,QUALITATIVE URINE NEGATIVE (NEGATIVE)
[2018-04-23 18:46] LABS: SQUAMOUS EPITHIAL 37 /hpf (0-5); URINE BACTERIA OCC (<OCC); URINE BILIRUBIN NEGATIVE (NEGATIVE); URINE BLOOD NEGATIVE (NEGATIVE); URINE CLARITY Hazy (Clear); URINE COLOR Yellow (YELLOW); URINE GLUCOSE (UA) NORMAL (Normal); URINE LEUKOCYTE ESTERASE NEG Leu/uL (Negative); URINE PROTEIN NEGATIVE (NEGATIVE)
[2018-04-23 19:02] VITALS: BP 105/61; PULSE 88; RESP 18; TEMP 98.8
[2018-04-23 19:16] VITALS: O2SAT 98
== END 2018-04-23 19:01 | disposition home or self-care (01) ==
LOC: C.ER 17:07
DX: G89.29 Other chronic pain (principal); R30.0 Dysuria

== ENCOUNTER 2018-04-29 17:23 | Emergency (ER) | payer MEDICAID ==
[2018-04-29 17:26] VITALS: BMI 24.5
--- NOTE | 2018-04-29 17:42 | C.PDOC ---
History Of Present Illness 32 year old female presents to the ED for evaluation of persistent abdominal pain and generalized pain which has been ongoing for one week. Patient has been evaluated by me multiple times since 04/19. Patient states, I have just been laying at home waiting for it to go away. I have not gone anywhere else. She denies fever, chills. Time Seen by Provider: 04/29/18 17:41 Chief Complaint (Nursing): Pain, Chronic History Per: Patient History/Exam Limitations: no limitations Onset/Duration Of Symptoms: Days Current Symptoms Are (Timing): Still Present Additional History Per: Patient Past Medical History Reviewed: Historical Data, Nursing Documentation, Vital Signs - Medical History PMH: Anemia, Bronchitis, Gall Bladder Disease, Pneumonia, Sickle Cell Disease Denies: Chronic Kidney Disease Surgical History: Cholecystectomy - [facility] Procedures INFLUENZA VACCINATION (03/16/12) INJECT/INFUSE ELECTROLYT (09/07/13) INJECT/INFUSE NEC (01/25/14) INSERT VAD RESERVOIR IN CHEST SUBCU/FASCIA, OPEN (05/31/17) INSERTION OF INFUSION DEV INTO SUP VENA CAVA, PERC APPROACH (01/25/17) NEBULIZER THERAPY (12/02/13) PACKED CELL TRANSFUSION (02/12/15) REMOVAL OF VAD FROM TRUNK SUBCU/FASCIA, OPEN APPROACH (04/15/16) TRANSFUSE NONAUT RED BLOOD CELLS IN PERIPH VEIN, PERC (03/30/18) VACCINATION NEC (08/22/13) Family History: States: Unknown Family Hx - Social History Hx Tobacco Use: No Hx Alcohol Use: No Hx Substance Use: Yes - Immunization History Hx Tetanus Toxoid Vaccination: Yes Hx Influenza Vaccination: Yes Hx Pneumococcal Vaccination: Yes Review Of Systems Constitutional: Negative for: Fever, Chills Gastrointestinal: Positive for: Abdominal Pain Physical Exam - Physical Exam Appears: Non-toxic, No Acute Distress Skin: Normal Color, Warm, Dry Head: Atraumatic, Normacephalic Eye(s): bilateral: Normal Inspection Oral Mucosa: Moist Neck: Supple Chest: Symmetrical, No Deformity Cardiovascular: Rhythm Regular Respiratory: No Accessory Muscle Use Gastrointestinal/Abdominal: Soft, No Tenderness, No Guarding, No Rebound Extremity: Normal ROM Neurological/Psych: Oriented x3, Normal Speech, Normal Cognition Progress - Re-Evaluation Re-evaluation Note: 04/29/18 18:24 D/W DR J [place], STATES PT WAS DC FROM [facility] [place] 04/29 Medical Decision Making Medical Decision Making: I discussed case with patient's PMD. As per PMD, patient was discharged from [facility] after undergoing workup for the same complaint. Patient will be discharged. Disposition Counseled Patient/Family Regarding: Diagnosis, Need For Followup - Disposition Referrals: YOUR,PMD [Other] Disposition: HOME/ ROUTINE Disposition Time: 18:30 Condition: GOOD Instructions: Chronic Pain (DC) Forms: [place] ([place]) - Clinical Impression Clinical Impression: Chronic pain, Drug-seeking behavior - Scribe Statement The provider has reviewed the documentation as recorded by the Scribe (Katelin Willingham) Provider Attestation: All medical record entries made by the Scribe were at my direction and pers onally dictated by me. I have reviewed the chart and agree that the record accurately reflects my personal performance of the history, physical exam, medical decision making, and the department course for this patient. I have also personally directed, reviewed, and agree with the discharge instructions and disposition.
[2018-04-29 18:13] VITALS: BP 108/74; RESP 18; TEMP 98.6
[2018-04-29 18:36] VITALS: PULSE 78; O2SAT 96
== END 2018-04-29 18:35 | disposition home or self-care (01) ==
LOC: C.ER 17:23
DX: G89.29 Other chronic pain (principal); Z76.5 Malingerer [conscious simulation]

== ENCOUNTER 2018-05-08 17:09 | Inpatient (IN) | payer MEDICAID ==
[2018-05-08 17:09] VITALS: BMI 24.5
[2018-05-08 18:47] LABS: HCG,QUALITATIVE URINE NEGATIVE (NEGATIVE)
--- NOTE | 2018-05-08 18:49 | C.PDOC ---
History Of Present Illness 32 year old female with PMHx of sickle cell disease presents to the ED complaining of nausea and abdominal pain since 12:00 today. Describes pain as sharp and stabbing. Last bowel movement was today. Reports she took pain medications with no relief. Denies any fever, chills, vomiting, chest pain, shortness of breath, constipation, diarrhea, back pain or any other symptoms. Time Seen by Provider: 05/08/18 18:45 Chief Complaint (Nursing): Abdominal Pain History Per: Patient History/Exam Limitations: no limitations Onset/Duration Of Symptoms: Hrs Current Symptoms Are (Timing): Still Present Location Of Pain/Discomfort: Epigastric Radiation Of Pain To:: None Associated Symptoms: Nausea. denies: Fever, Chills, Vomiting, Diarrhea, Back Pain, Chest Pain, Constipation, Urinary Symptoms Last Bowel Movement: Today Past Medical History Reviewed: Historical Data, Nursing Documentation, Vital Signs Vital Signs: Last Vital Signs Temp 98.3 F 05/08/18 17:12 Pulse 93 H 05/08/18 17:12 Resp 18 05/08/18 17:12 BP 118/78 05/08/18 17:12 Pulse Ox 98 05/08/18 17:12 - Medical History PMH: Anemia, Bronchitis, Gall Bladder Disease, Pneumonia, Sickle Cell Disease Denies: Chronic Kidney Disease Surgical History: Cholecystectomy Other Surgeries: Splenectomy - [facility] Procedures INFLUENZA VACCINATION (03/16/12) INJECT/INFUSE ELECTROLYT (09/07/13) INJECT/INFUSE NEC (01/25/14) INSERT VAD RESERVOIR IN CHEST SUBCU/FASCIA, OPEN (05/31/17) INSERTION OF INFUSION DEV INTO SUP VENA CAVA, PERC APPROACH (01/25/17) NEBULIZER THERAPY (12/02/13) PACKED CELL TRANSFUSION (02/12/15) REMOVAL OF VAD FROM TRUNK SUBCU/FASCIA, OPEN APPROACH (04/15/16) TRANSFUSE NONAUT RED BLOOD CELLS IN PERIPH VEIN, PERC (03/30/18) VACCINATION NEC (08/22/13) Family History: States: No Known Family Hx - Social History Hx Tobacco Use: No Hx Alcohol Use: No Hx Substance Use: Yes - Immunization History Hx Tetanus Toxoid Vaccination: Yes Hx Influenza Vaccination: Yes Hx Pneumococcal Vaccination: Yes Review Of Systems Constitutional: Negative for: Fever, Chills Eyes: Negative for: Pain Cardiovascular: Negative for: Chest Pain Respiratory: Negative for: Cough, Shortness of Breath Gastrointestinal: Positive for: Nausea, Abdominal Pain. Negative for: Vomiting, Diarrhea, Constipation Genitourinary: Negative for: Dysuria, Hematuria, Vaginal Discharge, Vaginal Bleeding Musculoskeletal: Negative for: Neck Pain, Back Pain Neurological: Negative for: Weakness, Numbness, Incoordination, Altered Mental Status, Headache Psych: Negative for: Anxiety Physical Exam - Physical Exam Appears: Non-toxic, No Acute Distress Skin: Warm, Dry Head: Normacephalic Eye(s): bilateral: Normal Inspection Nose: Normal Oral Mucosa: Moist Neck: Supple, Other (no meningeal signs) Cardiovascular: Rhythm Regular Respiratory: No Rales, No Rhonchi, No Wheezing Gastrointestinal/Abdominal: Soft, Tenderness (epigastric tenderness ), No Guarding, No Rebound Extremity: Bilateral: Atraumatic, Normal Color And Temperature, Normal ROM Neurological/Psych: Oriented x3, Normal Speech Gait: Steady ED Course And Treatment - Laboratory Results Result Diagrams: 05/08/18 19:49 05/08/18 19:49 O2 Sat by Pulse Oximetry: 98 (RA) Pulse Ox Interpretation: Normal Medical Decision Making Medical Decision Makin yr old female w/ hx of sickle cell anemia p/w abd pain, nausea. Epigastric tenderness on exam. Well appearing. No cough or congestion. No fever. No sob. No urinary complaints. Likely viral gastro, will seek labs. No dark or bloody stool. Plan - Bloodwork - Zofran 4mg PO 2000 noted elevated WBC: 21k, will add on labs and imaging. we are to order abx per Ariel Heranndez hgb 8.3- likely 2/2 sickle cell. no dark or bloody stool or trauma per pt. No current period or vag bleeding. 2123 retic count elevated, no indication of aplastic crisis pt in [facility] CXR unremarkable CT w. ?enteritis abx ordered appreciate reconsult wAriel Lezama Dr. to admit to his service pt in [facility] and agreeable to plan Disposition - Disposition Disposition: HOSPITALIZED Disposition Time: 21:24 Condition: GOOD - Clinical Impression Clinical Impression: Leukocytosis - Scribe Statement The provider has reviewed the documentation as recorded by the Zacheryibe Barbara Crawford All medical record entries made by the Scribvalarie were at my direction and personally dictated by me. I have reviewed the chart and agree that the record accurately reflects my personal performance of the history, physical exam, medical decision making, and the department course for this patient. I have also personally directed, reviewed, and agree with the discharge instructions and disposition.
[2018-05-08 18:51] LABS: SQUAMOUS EPITHIAL 1 /hpf (0-5); URINE BACTERIA RARE (<OCC); URINE BILIRUBIN NEGATIVE (NEGATIVE); URINE BLOOD NEGATIVE (NEGATIVE); URINE CLARITY Clear (Clear); URINE COLOR Yellow (YELLOW); URINE GLUCOSE (UA) NORMAL (Normal); URINE LEUKOCYTE ESTERASE TRACE Leu/uL (Negative); URINE PROTEIN NEGATIVE (NEGATIVE); URINE UROBILINOGEN NORMAL mg/dL (0.2-1.0)
[2018-05-08 19:54] LABS: BASO # 0.2 K/uL (0.0-0.2); BASO % 0.9 % (0.0-2.0); EOS # 0.1 K/uL (0.0-0.7); EOS % 0.5 % (0.0-4.0); HEMOGLOBIN 8.2 g/dL (11.0-16.0); MEAN CELL VOLUME 92.5 fL (81.0-99.0); MEAN CORPUSCULAR HEMOGLOBIN 32.1 pg (27.0-31.0); MEAN CORPUSCULAR HGB CONC 34.7 g/dL (33.0-37.0); MONO # 1.5 K/uL (0.0-0.8); MONO % 7.3 % (0.0-10.0); NEUT # 11.2 K/uL (1.8-7.0); NEUT % 53.3 % (50.0-75.0); NRBC % 0.1 % (0.0-2.0); RBC 2.55 Mil/uL (3.80-5.20); RED CELL DISTRIBUTION WIDTH 17.7 % (11.5-14.5)
[2018-05-08 20:10] LABS: ALB/GLOB RATIO 1.5 (1.0-2.1); ALBUMIN 4.7 g/dL (3.5-5.0); ALT/SGPT 180 U/L (9-52); AST/SGOT 122 U/L (14-36); BLOOD UREA NITROGEN 17 mg/dL (7-17); CALCIUM 9.4 mg/dl (8.6-10.4); GFR NON-AFRICAN AMERICAN > 60; LIPASE 38 U/L (23-300)
[2018-05-08] MEDS ORDERED: Sodium Chloride 0.9% 1,000 ML ONE (20:20)
[2018-05-08] MEDS: Sodium Chloride 0.9% 1,000 ML IV SCH (21:26)
[2018-05-08 21:40] LABS: VENOUS BLOOD GAS BASE EXCESS -0.8 mmol/L (0.0-2.0); VENOUS BLOOD GAS PCO2 41 mmHg (40-60); VENOUS BLOOD GAS PO2 32 mm/Hg (30-55); VENOUS BLOOD PH 7.38 (7.32-7.43)
[2018-05-08] MEDS ORDERED: cefTRIAXone IV 1 gm in Dextros 50 ML IVPB ONE (22:13)
[2018-05-08] MEDS ORDERED: cefTRIAXone 1 gm 1 GM/100 ML BAG IVPB ONE (22:30)
[2018-05-08] MEDS ORDERED: metroNIDAZOLE IV 500 mg/100 ml 500 MG/100 ML BAG IVPB STA (23:57)
[2018-05-08] MEDS ORDERED: Ciprofloxacin 400mg/200ml D5W 400 MG/200 ML BAG IVPB STA (23:58)
[2018-05-09] MEDS ORDERED: metroNIDAZOLE IV 500 mg/100 ml 500 MG/100 ML BAG ONE (00:05)
[2018-05-09] MEDS ORDERED: Ciprofloxacin 400mg/200ml D5W 400 MG/200 ML BAG IVPB ONE (00:05)
[2018-05-09] MEDS ORDERED: Cefepime IV 1 gm in Dextrose 1 GM/50 ML BAG IVPB SCH (00:15)
[2018-05-09] MEDS ORDERED: DiphenhydrAMINE 50 mg/ml Inj IVP SCH (00:15)
[2018-05-09] MEDS ORDERED: DiphenhydrAMINE 50 mg/ml Inj ONE ×3 (00:38→07:29)
[2018-05-09] MEDS: DiphenhydrAMINE 50 mg/ml Inj IVP PRN ×7 (00:41→22:03)
[2018-05-09] MEDS: HYDROmorphone 1 mg/ml ISec IVP PRN ×7 (00:41→22:03)
[2018-05-09] MEDS: Vancomycin 1 gm/NS 200 ml 1 GM/200 ML BAG IVPB SCH (02:06)
[2018-05-09] MEDS: Sodium Chloride 0.9% 1,000 ML IV SCH ×2 (06:12→17:55)
[2018-05-09] MEDS: Cefepime IV 1 gm in Dextrose 1 GM/50 ML BAG IVPB SCH (10:24)
[2018-05-09] MEDS: Enoxaparin 40 mg Syringe SC SCH (10:25)
[2018-05-09] MEDS: Pantoprazole 40 mg EC Tab PO SCH (10:26)
--- NOTE | 2018-05-09 14:12 | CT ---
Date of service: 05/08/2018 PROCEDURE: CT Abdomen and Pelvis with contrast HISTORY: abd pain COMPARISON: 03/28/2018 TECHNIQUE: Contrast dose: 100 mL Visipaque 320 Radiation dose: Total exam DLP = 257.77 mGy-cm. This CT exam was performed using one or more of the following dose reduction techniques: Automated exposure control, adjustment of the mA and/or kV according to patient size, and/or use of iterative reconstruction technique. FINDINGS: LOWER THORAX: Unremarkable. LIVER: Mild hepatomegaly. The liver measures approximately 21 cm craniocaudal. There is a rounded low-attenuation mass in the dome of the liver 1.4 cm. It is mildly heterogeneous. This is seen without interval change in size dating back to 11/07/2010. No other mass. No biliary dilatation. Smooth contour. Normal attenuation. GALLBLADDER AND BILE DUCTS: Cholecystectomy PANCREAS: Unremarkable. No gross lesion or ductal dilatation. SPLEEN: Status post splenectomy. ADRENALS: Unremarkable. No mass. 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 No mass, calculus or hydronephrosis. VASCULATURE: Unremarkable. No aortic aneurysm. No aortic atherosclerotic calcification or mural plaque present. BOWEL: Unremarkable. No obstruction. No gross mural thickening. APPENDIX: Not definitely identified. No secondary findings to suggest appendicitis. PERITONEUM: Trace fluid in the cul-de-sac. LYMPH NODES: Unremarkable. No enlarged lymph nodes. BLADDER: Unremarkable. REPRODUCTIVE: Unremarkable uterus. 2.7 cm left ovarian cyst unchanged from prior examination and likely physiologic. BONES: No acute fracture. OTHER FINDINGS: None. IMPRESSION: No acute abnormality. 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 Mild hepatomegaly. Stable low-density mass in dome of right hepatic lobe. Status post splenectomy. Status post cholecystectomy. Stable left ovarian cyst, presumed physiologic. No other significant abnormality. The preliminary findings for this examination were reported by [facility] at 11:05 p.m. on 05/08/2018.. There is discordance of this report with the preliminary findings. There is not felt to be evidence of enteritis on the basis of this examination.
--- NOTE | 2018-05-09 15:16 | RAD ---
Date of service: 05/08/2018 HISTORY: abd pain, wbc 21k COMPARISON: Comparison chest 03/28/2018. TECHNIQUE: Chest PA and lateral FINDINGS: Redemonstrated is in situ right IJ MediPort tip in the SVC. LUNGS: No active pulmonary disease. Interstitial markings appear less coarsened compared the prior exam PLEURA: No significant pleural effusion identified. No pneumothorax apparent. CARDIOVASCULAR: No aortic atherosclerotic calcification present. Normal cardiac size. No pulmonary vascular congestion. OSSEOUS STRUCTURES: No significant abnormalities. VISUALIZED UPPER ABDOMEN: Normal. OTHER FINDINGS: None. IMPRESSION: Interval improvement previously noted coarsened interstitial markings on prior study. No focal consolidation
--- NOTE | 2018-05-09 17:43 | CP.PCM.HP ---
Past Patient History - Infectious Disease Hx of Infectious Diseases: None - Tetanus Immunizations Tetanus Immunization: Up to Date - Past Medical History & Family History Past Medical History?: Yes - Past Social History Smoking Status: Never Smoked - PULMONARY Hx Bronchitis: Yes Hx Pneumonia: Yes - HEENT Hx HEENT Problems: No - RENAL Hx Chronic Kidney Disease: No - HEMATOLOGICAL/ONCOLOGICAL Hx Anemia: Yes Hx Sickle Cell Disease: Yes - INTEGUMENTARY Hx Dermatological Problems: No - GASTROINTESTINAL Hx Gall Bladder Disease: Yes - PSYCHIATRIC Hx Substance Use: Yes - SURGICAL HISTORY Hx Cholecystectomy: Yes - ANESTHESIA Hx Anesthesia: Yes Hx Anesthesia Reactions: No Hx Malignant Hyperthermia: No Meds Allergies/Adverse Reactions: Allergies Allergy/AdvReac Type Severity Reaction Status Date / Time FISH Allergy Severe RASH Verified 05/08/18 17:15 oxycodone Allergy Severe RASH Verified 05/08/18 17:15 tramadol Allergy Severe RASH Verified 05/08/18 17:15 ketorolac Allergy Intermediate RASH Verified 05/08/18 17:15 Physical Exam - Constitutional Appears: Well - Head Exam Head Exam: ATRAUMATIC, NORMAL INSPECTION, NORMOCEPHALIC - Eye Exam Eye Exam: EOMI, Normal appearance, PERRL Pupil Exam: NORMAL ACCOMODATION, PERRL - ENT Exam ENT Exam: Mucous Membranes Moist, Normal Exam - Neck Exam Neck exam: Positive for: Normal Inspection - Respiratory Exam Respiratory Exam: Decreased Breath Sounds - Cardiovascular Exam Cardiovascular Exam: REGULAR RHYTHM, +S1, +S2 - GI/Abdominal Exam GI & Abdominal Exam: Diminished Bowel Sounds, Soft - Rectal Exam Rectal Exam: Deferred Results - Vital Signs Recent Vital Signs: Last Vital Signs Temp 98 F 05/09/18 17:41 Pulse 77 05/09/18 17:41 Resp 18 05/09/18 17:41 BP 110/71 05/09/18 17:41 Pulse Ox 97 05/09/18 17:41 - Labs Result Diagrams: 05/08/18 19:49 05/08/18 19:49 Labs: Laboratory Results - last 24 hr 05/08/18 05/08/18 05/08/18 18:45 19:49 19:49 WBC 21.0 H RBC 2.55 L Hgb 8.2 L Hct 23.6 L MCV 92.5 MCH 32.1 H MCHC 34.7 RDW 17.7 H Plt Count 375 MPV 8.0 Neut % (Auto) 53.3 Lymph % (Auto) 38.0 [place] % (Auto) 7.3 Eos % (Auto) 0.5 Baso % (Auto) 0.9 Neut # (Auto) 11.2 H Lymph # (Auto) 8.0 H [place] # (Auto) 1.5 H Eos # (Auto) 0.1 Baso # (Auto) 0.2 Retic Count pO2 VBG pH VBG pCO2 VBG HCO3 VBG Total CO2 VBG O2 Sat (Calc) VBG Base Excess VBG Potassium Glucose Lactate Sodium 138 Potassium 3.8 Chloride 101 Carbon Dioxide 23 Anion Gap 18 BUN 17 Creatinine 0.5 L Est GFR ( Amer) > 60 Est GFR (Non-Af Amer) > 60 Random Glucose 100 Calcium 9.4 Total Bilirubin 2.3 H AST 122 H D ALT 180 H D Alkaline Phosphatase 123 Total Protein 7.8 Albumin 4.7 Globulin 3.1 Albumin/Globulin Ratio 1.5 Lipase 38 Venous Blood Potassium Urine Color Yellow Urine Clarity Clear Urine pH 5.0 Ur Specific [place] 1.013 Urine Protein Negative Urine Glucose (UA) Normal Urine Ketones Negative Urine Blood Negative Urine Nitrate Negative Urine Bilirubin Negative Urine Urobilinogen Normal Ur Leukocyte Esterase Trace Urine WBC (Auto) 2 Urine RBC (Auto) < 1 Ur Squamous Epith Cells 1 Urine Bacteria Rare Urine HCG, Qual Negative Blood Type Antibody Screen 05/08/18 05/08/18 05/08/18 19:49 21:03 21:36 WBC RBC Hgb Hct MCV MCH MCHC RDW Plt Count MPV Neut % (Auto) Lymph % (Auto) [place] % (Auto) Eos % (Auto) Baso % (Auto) Neut # (Auto) Lymph # (Auto) [place] # (Auto) Eos # (Auto) Baso # (Auto) Retic Count 9.3 H D pO2 32 VBG pH 7.38 VBG pCO2 41 VBG HCO3 23.3 VBG Total CO2 25.6 VBG O2 Sat (Calc) 69.0 H VBG Base Excess -0.8 L VBG Potassium 3.3 L Glucose 102 Lactate 0.9 Sodium 139.0 Potassium Chloride 107.0 Carbon Dioxide Anion Gap BUN Creatinine Est GFR ( Amer) Est GFR (Non-Af Amer) Random Glucose Calcium Total Bilirubin AST ALT Alkaline Phosphatase Total Protein Albumin Globulin Albumin/Globulin Ratio Lipase Venous Blood Potassium 3.3 L Urine Color Urine Clarity Urine pH Ur Specific [place] Urine Protein Urine Glucose (UA) Urine Ketones Urine Blood Urine Nitrate Urine Bilirubin Urine Urobilinogen Ur Leukocyte Esterase Urine WBC (Auto) Urine RBC (Auto) Ur Squamous Epith Cells Urine Bacteria Urine HCG, Qual Blood Type A POSITIVE Antibody Screen Negative
[2018-05-09] MEDS ORDERED: cefTRIAXone IV 1 gm in Dextros 1 GM in Dextrose 5% In Water 50 ML IVPB SCH (22:00)
[2018-05-10] MEDS: HYDROmorphone 1 mg/ml ISec IVP PRN ×7 (00:49→20:56)
[2018-05-10] MEDS: DiphenhydrAMINE 50 mg/ml Inj IVP PRN ×6 (00:50→20:56)
[2018-05-10] MEDS: Vancomycin 1 gm/NS 200 ml 1 GM/200 ML BAG IVPB SCH (03:56)
[2018-05-10] MEDS: Sodium Chloride 0.9% 1,000 ML IV SCH ×3 (04:02→22:56)
[2018-05-10] MEDS: Cefepime IV 1 gm in Dextrose 1 GM/50 ML BAG IVPB SCH (09:38)
[2018-05-10] MEDS: Enoxaparin 40 mg Syringe SC SCH (09:39)
[2018-05-10] MEDS: Pantoprazole 40 mg EC Tab PO SCH (09:40)
--- NOTE | 2018-05-10 20:01 | CP.PCM.CON ---
History of Present Illness - History of Present Illness History of Present Illness: dictated Past Patient History - Infectious Disease Hx of Infectious Diseases: None - Tetanus Immunizations Tetanus Immunization: Up to Date - Past Medical History & Family History Past Medical History?: Yes - Past Social History Smoking Status: Never Smoked - PULMONARY Hx Bronchitis: Yes Hx Pneumonia: Yes - HEENT Hx HEENT Problems: No - RENAL Hx Chronic Kidney Disease: No - HEMATOLOGICAL/ONCOLOGICAL Hx Anemia: Yes Hx Sickle Cell Disease: Yes - INTEGUMENTARY Hx Dermatological Problems: No - GASTROINTESTINAL Hx Gall Bladder Disease: Yes - PSYCHIATRIC Hx Substance Use: Yes - SURGICAL HISTORY Hx Cholecystectomy: Yes - ANESTHESIA Hx Anesthesia: Yes Hx Anesthesia Reactions: No Hx Malignant Hyperthermia: No Has any member of the family had a problem w/ anesthesia?: No Meds Allergies/Adverse Reactions: Allergies Allergy/AdvReac Type Severity Reaction Status Date / Time FISH Allergy Severe RASH Verified 05/08/18 17:15 oxycodone Allergy Severe RASH Verified 05/08/18 17:15 tramadol Allergy Severe RASH Verified 05/08/18 17:15 ketorolac Allergy Intermediate RASH Verified 05/08/18 17:15 - Medications Medications: Current Medications Diphenhydramine HCl (Benadryl) 25 mg IVP Q3H PRN PRN Reason: itching Last Admin: 05/10/18 16:51 Dose: 25 mg Enoxaparin Sodium (Lovenox) 40 mg SC DAILY [facility] Last Admin: 05/10/18 09:39 Dose: Not Given Hydromorphone HCl (Dilaudid) 1 mg IVP Q3H PRN PRN Reason: pain Last Admin: 05/10/18 16:51 Dose: 1 mg Sodium Chloride (Sodium Chloride 0.9%) 1,000 mls @ 100 mls/hr IV .Q10H TALIA Last Admin: 05/10/18 10:30 Dose: 100 mls/hr Vancomycin/Sodium Chloride (Vancomycin 1 Gm/Ns 200 Ml) 1 gm in 200 mls @ 133.333 mls/hr IVPB Q24H TALIA; Protocol Stop: 05/14/18 02:01 Last Admin: 05/10/18 03:56 Dose: 133.333 mls/hr Cefepime HCl (Maxipime Iv 1 Gm Premix) 1 gm in 50 mls @ 100 mls/hr IVPB Q24H TALIA; Protocol Last Admin: 05/10/18 09:38 Dose: 100 mls/hr Pantoprazole Sodium (Protonix Ec Tab) 40 mg PO DAILY [facility] Last Admin: 05/10/18 09:40 Dose: 40 mg Results - Vital Signs Recent Vital Signs: Last Vital Signs Temp 97.9 F 05/10/18 15:15 Pulse 77 05/10/18 16:00 Resp 20 05/10/18 15:15 BP 112/71 05/10/18 15:15 Pulse Ox 97 05/10/18 15:15 - Labs Result Diagrams: 05/08/18 19:49 05/08/18 19:49 Labs: Laboratory Results - last 24 hr 05/09/18 22:03 Lactic Acid 0.8
[2018-05-10] MEDS: Cefepime IV 2 gm in Dextrose 2 GM/100 ML BAG IVPB SCH (20:55)
[2018-05-10 23:00] LABS: SQUAMOUS EPITHIAL 2 /hpf (0-5); URINE BACTERIA OCC (<OCC); URINE BILIRUBIN NEGATIVE (NEGATIVE); URINE BLOOD NEGATIVE (NEGATIVE); URINE CLARITY Clear (Clear); URINE COLOR Yellow (YELLOW); URINE GLUCOSE (UA) NORMAL (Normal); URINE LEUKOCYTE ESTERASE NEG Leu/uL (Negative); URINE PROTEIN NEGATIVE (NEGATIVE); URINE UROBILINOGEN NORMAL mg/dL (0.2-1.0)
--- NOTE | 2018-05-11 | CP.PCM.PN ---
Subjective - Date & Time of Evaluation Date of Evaluation: 05/11/18 Time of Evaluation: 10:50 - Subjective Subjective: clinically same Objective - Vital Signs/Intake and Output Vital Signs (last 24 hours): Temp Pulse Resp BP Pulse Ox 97.9 F 77 20 112/71 97 05/10/18 15:15 05/10/18 16:00 05/10/18 15:15 05/10/18 15:15 05/10/18 15:15 - Medications Medications: Current Medications Diphenhydramine HCl (Benadryl) 25 mg IVP Q3H PRN PRN Reason: itching Last Admin: 05/10/18 20:56 Dose: 25 mg Enoxaparin Sodium (Lovenox) 40 mg SC DAILY [facility] Last Admin: 05/10/18 09:39 Dose: Not Given Hydromorphone HCl (Dilaudid) 1 mg IVP Q3H PRN PRN Reason: pain Last Admin: 05/10/18 20:56 Dose: 1 mg Sodium Chloride (Sodium Chloride 0.9%) 1,000 mls @ 100 mls/hr IV .Q10H TALIA Last Admin: 05/10/18 22:56 Dose: Not Given Vancomycin/Sodium Chloride (Vancomycin 1 Gm/Ns 200 Ml) 1 gm in 200 mls @ 133.333 mls/hr IVPB Q24H TALIA; Protocol Stop: 05/14/18 02:01 Last Admin: 05/10/18 03:56 Dose: 133.333 mls/hr Cefepime HCl (Maxipime Iv 2 Gm Premix) 2 gm in 100 mls @ 100 mls/hr IVPB Q12H TALIA; Protocol Stop: 05/15/18 21:01 Last Admin: 05/10/18 20:55 Dose: 100 mls/hr Pantoprazole Sodium (Protonix Ec Tab) 40 mg PO DAILY [facility] Last Admin: 05/10/18 09:40 Dose: 40 mg - Labs Labs: 05/08/18 19:49 05/08/18 19:49 - Constitutional Appears: Well - Head Exam Head Exam: ATRAUMATIC, NORMAL INSPECTION, NORMOCEPHALIC - Eye Exam Eye Exam: EOMI, Normal appearance, PERRL Pupil Exam: NORMAL ACCOMODATION, PERRL - ENT Exam ENT Exam: Mucous Membranes Moist, Normal Exam - Neck Exam Neck Exam: Full ROM, Normal Inspection. absent: Lymphadenopathy - Respiratory Exam Respiratory Exam: Decreased Breath Sounds - Cardiovascular Exam Cardiovascular Exam: REGULAR RHYTHM, +S1, +S2 - GI/Abdominal Exam GI & Abdominal Exam: Soft, Diminished Bowel Sounds - Rectal Exam Rectal Exam: Deferred
[2018-05-11] MEDS: HYDROmorphone 1 mg/ml ISec IVP PRN ×8 (00:07→22:01)
[2018-05-11] MEDS: DiphenhydrAMINE 50 mg/ml Inj IVP PRN ×8 (00:07→22:01)
[2018-05-11] MEDS: Vancomycin 1 gm/NS 200 ml 1 GM/200 ML BAG IVPB SCH ×2 (02:18→22:01)
--- NOTE | 2018-05-11 07:00 | CON ---
DATE: 05/10/2018 I was away, and I came to know of the consult today. Dr. Levy was covering until this morning. HISTORY OF PRESENT ILLNESS: She is a 32-year-old female. She presented to the emergency room on 05/08/2018 with nausea and abdominal pain that started at 12 o'clock. She described it as sharp, stabbing pain, and last BM was on 05/08/2018. She took pain medicine and did not help. She denies any fever, chills, vomiting. Just has nausea. No chest pain, no shortness of breath, no constipation, no diarrhea, no back pain, but today she is complaining of total body ache and she does state she got a flu shot in February. She is also having some abdominal pain, and she is on IV antibiotics. She denies any fever, chills, or any back pain, chest pain, constipation, or urinary symptoms. No trouble swallowing. ALLERGIES: SHE IS ALLERGIC TO FISH, OXYCODONE, TRAMADOL, AND KETOROLAC. FAMILY HISTORY: Significant for sickle cell disease. The sister and, I think, the father have it. PAST MEDICAL HISTORY: She was having localized epigastric discomfort. When she presented, her past medical history is significant for surgery of bladder and a spleen. Past medical history of anemia, gallbladder disease, pneumonia, sickle cell disease, and bronchitis in the past. Her temperature was 98.3 when she was in the ER, pulse of 93, blood pressure 118/78, respirations are 18. SOCIAL HISTORY: Negative for smoking or drinking. She does have history of substance abuse, and she has had pneumococcal vaccine in the past. She came in with a white count of 21,000, hemoglobin 8.2, hematocrit 23.6, platelet count of 375, creatinine of 0.5, and presented with abdominal pain, epigastric tenderness, and it was unclear the etiology for nausea. Her white count is significant for sepsis with this white count, and she had sickle cell disease, so was admitted with the high white count and to rule out sepsis. MEDICATIONS: She was started on cefepime 1 g every 24. She is on Benadryl, Lovenox, Dilaudid, Protonix, sodium chloride, and she is on vancomycin 1 g every 24 hours, so she is on these medications at this time. REVIEW OF SYSTEMS: Review of system today, she did say she was having body aches all over and she did have mild abdominal pain in epigastric area, otherwise was feeling better. PHYSICAL EXAMINATION: VITAL SIGNS: T-max is 97.9, pulse 86, blood pressure 112/71, respirations are 20. HEENT: Unremarkable. NECK: Supple. LUNGS: Clear. HEART: S1, S2 are regular. She does have a Port-A-Cath on the right chest wall, which she has had for the last 3 years, but seemed unremarkable. ABDOMEN: Soft, has mild epigastric tenderness. No guarding, no rigidity present. Bowel sounds are present. EXTREMITIES: Have no edema, clubbing, or cyanosis. LABORATORY DATA: White count of 21, hemoglobin 8.2, hematocrit 23.6, platelet count of 375, retic count is 9.3 which shows that she may be in crisis, and ABG was done which showed pH of 7.38, CO2 of 41, pO2 of 69, and bicarb 23.3, BUN is 17, creatinine 0.5, total bili is 2.3, AST is 122, ALT is 180, and potassium was 3.3. UA showed wbc 2, bacteria rare, so is unremarkable. Her blood cultures have been negative 24 hours. Urine culture needs multiple species and needs another sample. We will order that, and on reports, she had abdominal and a pelvic CT which showed no acute abnormality, incidentally right renal pelvis with partially duplicating collecting system, mild hepatomegaly, stable low density mass in the dome of right hepatic lobe, status post splenectomy, status post cholecystectomy, stable left ovarian cyst, presumed physiologic, no other significant abnormality, and stable left ovarian cyst. So at this time, her chest x-ray shows interval improvement, previously noted coarse interstitial markings and prior no focal consolidation. She has no focal consolidation at this time. I would repeat her UA and urine C and S. She has a duplicating system. She comes in with a white count of 21 , probably in sickle cell crisis as the retic count is high, and she has a high white count, needs to cover for sepsis with vancomycin and Maxipime. We would increase the dose to 2 g every 12 hours as her creatinine is normal and to optimize the medication, and we will follow etiology of her abdominal pain. It remains still unclear, and need to monitor the white count at this time and the blood culture reports. Eri Sharp MD
[2018-05-11 07:39] LABS: BASO # 0.1 K/uL (0.0-0.2); BASO % 0.7 % (0.0-2.0); EOS # 0.6 K/uL (0.0-0.7); EOS % 4.2 % (0.0-4.0); LYMPH # 6.4 K/uL (1.0-4.3); LYMPH % 42.3 % (20.0-40.0); MEAN CORPUSCULAR HEMOGLOBIN 33.2 pg (27.0-31.0); MEAN CORPUSCULAR HGB CONC 34.5 g/dL (33.0-37.0); MEAN PLATELET VOLUME 8.4 fL (7.2-11.7); MONO # 1.5 K/uL (0.0-0.8); MONO % 9.7 % (0.0-10.0); NEUT # 6.5 K/uL (1.8-7.0); NEUT % 43.1 % (50.0-75.0); NRBC % 0.2 % (0.0-2.0); RBC 2.11 Mil/uL (3.80-5.20); RED CELL DISTRIBUTION WIDTH 17.9 % (11.5-14.5)
[2018-05-11 07:41] LABS: MEAN CELL VOLUME 96.2 fL (81.0-99.0)
[2018-05-11] MEDS: Enoxaparin 40 mg Syringe SC SCH (09:17)
[2018-05-11] MEDS: Pantoprazole 40 mg EC Tab PO SCH (09:17)
[2018-05-11] MEDS: Cefepime IV 2 gm in Dextrose 2 GM/100 ML BAG IVPB SCH ×2 (09:18→20:16)
[2018-05-11] MEDS: Sodium Chloride 0.9% 1,000 ML IV SCH ×2 (09:20→18:50)
--- NOTE | 2018-05-11 13:00 | CP.PCM.PN ---
Subjective - Date & Time of Evaluation Date of Evaluation: 05/11/18 Time of Evaluation: 11:20 - Subjective Subjective: clinically same Objective - Vital Signs/Intake and Output Vital Signs (last 24 hours): Temp Pulse Resp BP Pulse Ox 98.2 F 84 20 113/72 98 05/11/18 07:00 05/11/18 07:00 05/11/18 07:00 05/11/18 07:00 05/11/18 07:00 Intake and Output: 05/11/18 05/11/18 06:59 18:59 Intake Total 970 Balance 970 - Medications Medications: Current Medications Diphenhydramine HCl (Benadryl) 25 mg IVP Q3H PRN PRN Reason: itching Last Admin: 05/11/18 12:22 Dose: 25 mg Enoxaparin Sodium (Lovenox) 40 mg SC DAILY [facility] Last Admin: 05/11/18 09:17 Dose: 40 mg Hydromorphone HCl (Dilaudid) 1 mg IVP Q3H PRN PRN Reason: pain Last Admin: 05/11/18 12:21 Dose: 1 mg Sodium Chloride (Sodium Chloride 0.9%) 1,000 mls @ 100 mls/hr IV .Q10H [facility] Last Admin: 05/11/18 09:20 Dose: 100 mls/hr Vancomycin/Sodium Chloride (Vancomycin 1 Gm/Ns 200 Ml) 1 gm in 200 mls @ 133.333 mls/hr IVPB Q24H [facility]; Protocol Stop: 05/14/18 02:01 Last Admin: 05/11/18 02:18 Dose: 133.333 mls/hr Cefepime HCl (Maxipime Iv 2 Gm Premix) 2 gm in 100 mls @ 100 mls/hr IVPB Q12H [facility]; Protocol Stop: 05/15/18 21:01 Last Admin: 05/11/18 09:18 Dose: 100 mls/hr Pantoprazole Sodium (Protonix Ec Tab) 40 mg PO DAILY [facility] Last Admin: 05/11/18 09:17 Dose: 40 mg - Labs Labs: 05/11/18 07:35 05/08/18 19:49 - Constitutional Appears: Well - Head Exam Head Exam: ATRAUMATIC, NORMAL INSPECTION, NORMOCEPHALIC - Eye Exam Eye Exam: EOMI, Normal appearance, PERRL Pupil Exam: NORMAL ACCOMODATION, PERRL - ENT Exam ENT Exam: Mucous Membranes Moist, Normal Exam - Neck Exam Neck Exam: Full ROM, Normal Inspection. absent: Lymphadenopathy - Respiratory Exam Respiratory Exam: Decreased Breath Sounds - Cardiovascular Exam Cardiovascular Exam: REGULAR RHYTHM, +S1, +S2 - GI/Abdominal Exam GI & Abdominal Exam: Soft, Diminished Bowel Sounds
--- NOTE | 2018-05-11 14:04 | CP.PCM.PN ---
Subjective - Date & Time of Evaluation Date of Evaluation: 05/11/18 Time of Evaluation: 02:00 - Subjective Subjective: dictated Objective - Vital Signs/Intake and Output Vital Signs (last 24 hours): Temp Pulse Resp BP Pulse Ox 98.2 F 84 20 113/72 98 05/11/18 07:00 05/11/18 07:00 05/11/18 07:00 05/11/18 07:00 05/11/18 07:00 Intake and Output: 05/11/18 05/11/18 06:59 18:59 Intake Total 970 Balance 970 - Medications Medications: Current Medications Diphenhydramine HCl (Benadryl) 25 mg IVP Q3H PRN PRN Reason: itching Last Admin: 05/11/18 12:22 Dose: 25 mg Enoxaparin Sodium (Lovenox) 40 mg SC DAILY [facility] Last Admin: 05/11/18 09:17 Dose: 40 mg Hydromorphone HCl (Dilaudid) 1 mg IVP Q3H PRN PRN Reason: pain Last Admin: 05/11/18 12:21 Dose: 1 mg Sodium Chloride (Sodium Chloride 0.9%) 1,000 mls @ 100 mls/hr IV .Q10H [facility] Last Admin: 05/11/18 09:20 Dose: 100 mls/hr Cefepime HCl (Maxipime Iv 2 Gm Premix) 2 gm in 100 mls @ 100 mls/hr IVPB Q12H [facility]; Protocol Stop: 05/15/18 21:01 Last Admin: 05/11/18 09:18 Dose: 100 mls/hr Vancomycin/Sodium Chloride (Vancomycin 1 Gm/Ns 200 Ml) 1 gm in 200 mls @ 133.333 mls/hr IVPB Q12 [facility]; Protocol Stop: 05/16/18 22:01 Pantoprazole Sodium (Protonix Ec Tab) 40 mg PO DAILY [facility] Last Admin: 05/11/18 09:17 Dose: 40 mg - Labs Labs: 05/11/18 07:35 05/08/18 19:49
[2018-05-12] MEDS: HYDROmorphone 1 mg/ml ISec IVP PRN ×8 (01:04→22:36)
[2018-05-12] MEDS: DiphenhydrAMINE 50 mg/ml Inj IVP PRN ×7 (01:04→22:45)
--- NOTE | 2018-05-12 03:23 | PN ---
DATE: 05/11/2018 INFECTIOUS DISEASE FOLLOWUP SUBJECTIVE: The patient remains afebrile. She does complain of generalized body ache. Denies any cough. No chest pain. No shortness of breath. No diarrhea. No abdominal pain. No nausea, but has generalized body aches, and she says she was on hydroxyurea and folic acid at home. I did put her back on folic acid or hydroxyurea, I am not sure, need to discuss with the primary. PHYSICAL EXAMINATION: VITAL SIGNS: T-max is 98.3, pulse 81, blood pressure was 117/78, respirations are 20. HEENT: Head is atraumatic, normocephalic. She is pale. NECK: Supple. LUNGS: Clear. HEART: S1, S2 are regular. ABDOMEN: Soft, nontender. No guarding, no rigidity present. EXTREMITIES: Have no edema, clubbing, or cyanosis. LABORATORIES: Noted. Labs show white count is 15, hemoglobin 7, hematocrit 20.3, platelet count is 316, retic count was before 9.3. ASSESSMENT AND PLAN: We need to repeat the chemistry again and as her LFTs were also elevated, but she is status post cholecystectomy and has sickle cell disease and has acute crisis going on with body aches. Septic workup was negative, however, urine culture had to be repeated because of contaminant. So we will follow and repeat the labs tomorrow. Eri Sharp MD
[2018-05-12 07:49] LABS: BASO # 0.1 K/uL (0.0-0.2); EOS # 0.6 K/uL (0.0-0.7); EOS % 4.5 % (0.0-4.0); HEMOGLOBIN 7.4 g/dL (11.0-16.0); LYMPH # 5.5 K/uL (1.0-4.3); LYMPH % 39.2 % (20.0-40.0); MEAN CORPUSCULAR HEMOGLOBIN 33.5 pg (27.0-31.0); MEAN CORPUSCULAR HGB CONC 34.1 g/dL (33.0-37.0); MEAN PLATELET VOLUME 8.3 fL (7.2-11.7); MONO # 1.5 K/uL (0.0-0.8); MONO % 10.5 % (0.0-10.0); NEUT # 6.3 K/uL (1.8-7.0); NEUT % 44.8 % (50.0-75.0); NRBC % 0.9 % (0.0-2.0); RBC 2.22 Mil/uL (3.80-5.20)
[2018-05-12 07:55] LABS: MEAN CELL VOLUME 98.3 fL (81.0-99.0)
[2018-05-12] MEDS: Sodium Chloride 0.9% 1,000 ML IV SCH ×2 (08:00→17:00)
[2018-05-12 08:08] LABS: ALB/GLOB RATIO 1.4 (1.0-2.1); ALBUMIN 3.5 g/dL (3.5-5.0); ALT/SGPT 91 U/L (9-52); AST/SGOT 52 U/L (14-36); BLOOD UREA NITROGEN 14 mg/dL (7-17); CALCIUM 8.8 mg/dl (8.6-10.4); GFR NON-AFRICAN AMERICAN > 60
[2018-05-12] MEDS: Pantoprazole 40 mg EC Tab PO SCH (09:39)
[2018-05-12] MEDS: Enoxaparin 40 mg Syringe SC SCH (09:39)
[2018-05-12] MEDS: Cefepime IV 2 gm in Dextrose 2 GM/100 ML BAG IVPB SCH ×2 (09:39→21:46)
[2018-05-12] MEDS: Vancomycin 1 gm/NS 200 ml 1 GM/200 ML BAG IVPB SCH ×2 (11:50→22:36)
--- NOTE | 2018-05-12 12:18 | CP.PCM.PN ---
Subjective - Date & Time of Evaluation Date of Evaluation: 05/12/18 Time of Evaluation: 12:10 - Subjective Subjective: dictated Objective - Vital Signs/Intake and Output Vital Signs (last 24 hours): Temp Pulse Resp BP Pulse Ox 98.7 F 82 18 115/79 97 05/12/18 07:30 05/12/18 07:30 05/12/18 07:30 05/12/18 07:30 05/12/18 07:30 Intake and Output: 05/12/18 05/12/18 06:59 18:59 Intake Total 2140 Balance 2140 - Medications Medications: Current Medications Diphenhydramine HCl (Benadryl) 25 mg IVP Q3H PRN PRN Reason: itching Last Admin: 05/12/18 07:11 Dose: 25 mg Enoxaparin Sodium (Lovenox) 40 mg SC DAILY [facility] Last Admin: 05/12/18 09:39 Dose: Not Given Folic Acid (Folic Acid) 1 mg PO DAILY [facility] Last Admin: 05/12/18 09:39 Dose: 1 mg Hydromorphone HCl (Dilaudid) 1 mg IVP Q3H PRN PRN Reason: pain Last Admin: 05/12/18 10:18 Dose: 1 mg Sodium Chloride (Sodium Chloride 0.9%) 1,000 mls @ 100 mls/hr IV .Q10H [facility] Last Admin: 05/12/18 08:00 Dose: 100 mls/hr Cefepime HCl (Maxipime Iv 2 Gm Premix) 2 gm in 100 mls @ 100 mls/hr IVPB Q12H [facility]; Protocol Stop: 05/15/18 21:01 Last Admin: 05/12/18 09:39 Dose: 100 mls/hr Vancomycin/Sodium Chloride (Vancomycin 1 Gm/Ns 200 Ml) 1 gm in 200 mls @ 133.333 mls/hr IVPB Q12 [facility]; Protocol Stop: 05/16/18 22:01 Last Admin: 05/12/18 11:50 Dose: 133.333 mls/hr Pantoprazole Sodium (Protonix Ec Tab) 40 mg PO DAILY [facility] Last Admin: 05/12/18 09:39 Dose: 40 mg - Labs Labs: 05/12/18 07:41 05/12/18 07:41
--- NOTE | 2018-05-12 13:33 | CP.PCM.PCO ---
Addendum Addendum: 05/12/18 13:32 Paged for patient complaining of chest pain. Patient was sitting up in bed, no acute distress, ordering her meal from the food and beverage order clerk personnel. Patient stated that she has chest pain that is similar to episodes she's had before. Of note, patient has sickle cell anemia. Stat EKG was obtained- no changes from previous earlier this admission. No abnormalities on exam. Patient was also complaining of foul-smelling urine. UA and C&S were obtained. Patient was instructed to ask for her pain medication that is already ordered PRN. She can use supplemental O2 for comfort if needed. Attending, Dr. Tejal Louis, was informed.
--- NOTE | 2018-05-12 13:54 | RAD ---
HISTORY: chest pain on inspiration COMPARISON: Chest x-ray performed 05/08/18 TECHNIQUE: Chest, one view. FINDINGS: Right-sided MediPort extends to the cavoatrial junction. LUNGS: No focal consolidation. Please note that chest x-ray has limited sensitivity for the detection of pulmonary masses. PLEURA: No significant pleural effusion identified. No definite pneumothorax . CARDIOVASCULAR: Heart size appears top-normal. No significant atherosclerotic calcification present. OSSEOUS STRUCTURES: No acute osseous abnormality identified. VISUALIZED UPPER ABDOMEN: Unremarkable. OTHER FINDINGS: None. IMPRESSION: Right-sided MediPort.
[2018-05-12 15:12] LABS: SQUAMOUS EPITHIAL < 1 /hpf (0-5); URINE BACTERIA RARE (<OCC); URINE BILIRUBIN NEGATIVE (NEGATIVE); URINE BLOOD NEGATIVE (NEGATIVE); URINE CLARITY Clear (Clear); URINE COLOR Straw (YELLOW); URINE GLUCOSE (UA) NORMAL (Normal); URINE LEUKOCYTE ESTERASE NEG Leu/uL (Negative); URINE PROTEIN NEGATIVE (NEGATIVE); URINE UROBILINOGEN NORMAL mg/dL (0.2-1.0)
--- NOTE | 2018-05-12 18:03 | CARD ---
APPROVED REPORT Date of service: 05/09/2018 EKG Measurement Heart [id number] <Conclusion> Normal sinus rhythm Normal ECG
--- NOTE | 2018-05-12 22:10 | CP.PCM.PN ---
Subjective - Date & Time of Evaluation Date of Evaluation: 05/12/18 Time of Evaluation: 10:30 - Subjective Subjective: clinically same Objective - Vital Signs/Intake and Output Vital Signs (last 24 hours): Temp Pulse Resp BP Pulse Ox 98.5 F 78 20 98/64 L 98 05/12/18 15:00 05/12/18 15:00 05/12/18 15:00 05/12/18 15:00 05/12/18 15:00 Intake and Output: 05/12/18 05/13/18 18:59 06:59 Intake Total 1400 Balance 1400 - Medications Medications: Current Medications Diphenhydramine HCl (Benadryl) 25 mg IVP Q3H PRN PRN Reason: itching Last Admin: 05/12/18 16:27 Dose: 25 mg Enoxaparin Sodium (Lovenox) 40 mg SC DAILY [facility] Last Admin: 05/12/18 09:39 Dose: Not Given Folic Acid (Folic Acid) 1 mg PO DAILY [facility] Last Admin: 05/12/18 09:39 Dose: 1 mg Hydromorphone HCl (Dilaudid) 1 mg IVP Q3H PRN PRN Reason: pain Last Admin: 05/12/18 19:29 Dose: 1 mg Hydroxyurea (Hydrea) 500 mg PO BID [facility] Last Admin: 05/12/18 17:36 Dose: 500 mg Sodium Chloride (Sodium Chloride 0.9%) 1,000 mls @ 100 mls/hr IV .Q10H [facility] Last Admin: 05/12/18 17:00 Dose: 100 mls/hr Cefepime HCl (Maxipime Iv 2 Gm Premix) 2 gm in 100 mls @ 100 mls/hr IVPB Q12H [facility]; Protocol Stop: 05/15/18 21:01 Last Admin: 05/12/18 21:46 Dose: 100 mls/hr Vancomycin/Sodium Chloride (Vancomycin 1 Gm/Ns 200 Ml) 1 gm in 200 mls @ 133.333 mls/hr IVPB Q12 [facility]; Protocol Stop: 05/16/18 22:01 Last Admin: 05/12/18 11:50 Dose: 133.333 mls/hr Pantoprazole Sodium (Protonix Ec Tab) 40 mg PO DAILY [facility] Last Admin: 05/12/18 09:39 Dose: 40 mg - Labs Labs: 05/12/18 07:41 11/28/18 07:41 - Constitutional Appears: Well - Head Exam Head Exam: ATRAUMATIC, NORMAL INSPECTION, NORMOCEPHALIC - Eye Exam Eye Exam: EOMI, Normal appearance, PERRL Pupil Exam: NORMAL ACCOMODATION, PERRL - ENT Exam ENT Exam: Mucous Membranes Moist, Normal Exam - Neck Exam Neck Exam: Full ROM, Normal Inspection. absent: Lymphadenopathy - Respiratory Exam Respiratory Exam: Decreased Breath Sounds - Cardiovascular Exam Cardiovascular Exam: REGULAR RHYTHM, +S1, +S2 - GI/Abdominal Exam GI & Abdominal Exam: Soft, Diminished Bowel Sounds - Rectal Exam Rectal Exam: Deferred
[2018-05-13] MEDS: HYDROmorphone 1 mg/ml ISec IVP PRN ×8 (02:08→23:53)
[2018-05-13] MEDS: DiphenhydrAMINE 50 mg/ml Inj IVP PRN ×8 (02:09→23:54)
[2018-05-13] MEDS: Sodium Chloride 0.9% 1,000 ML IV SCH ×4 (02:17→20:40)
--- NOTE | 2018-05-13 03:27 | PN ---
DATE: 05/12/2018 SUBJECTIVE: The patient did complain of some chest pain today and, on deep inspiration, she is still having generalized aches and pains. She is not feeling well. OBJECTIVE: GENERAL: She appears pale. VITAL SIGNS: T-max was 98.5, pulse 78, blood pressure 115/79, respirations are 18. HEENT: Head is atraumatic, normocephalic. NECK: Supple. JVP is flat. LUNGS: Clear to auscultation. HEART: S1, S2 regular. ABDOMEN: Soft, nontender. No guarding, no rigidity present. EXTREMITIES: Have no edema. Labs are noted. Labs show white count is 14 today, hemoglobin 7.4, hematocrit 21.8, platelet count is 284. Her retic count is 17.9 today, is high, and BUN is 14, creatinine 0.5. AST is 52, ALT is 91. LFTs are going up; I hope it is not from medications or hemolysis. She was also complaining of some dysuria, hence we repeated urine. UA is negative basically and bacteria rare. Urine culture has been sent. I also did a chest x-ray on her today, and chest x-ray shows a right-sided med port, otherwise is unremarkable. The patient will be continued on IV antibiotics as her white count still is high, and she has sickle cell crisis, probably at this time. Eri Sharp MD
[2018-05-13] MEDS: Cefepime IV 2 gm in Dextrose 2 GM/100 ML BAG IVPB SCH ×2 (09:15→20:53)
[2018-05-13] MEDS: Pantoprazole 40 mg EC Tab PO SCH (10:18)
[2018-05-13] MEDS: Enoxaparin 40 mg Syringe SC SCH (10:18)
[2018-05-13] MEDS: Vancomycin 1 gm/NS 200 ml 1 GM/200 ML BAG IVPB SCH ×2 (10:19→21:46)
--- NOTE | 2018-05-13 14:51 | CP.PCM.PN ---
Subjective - Date & Time of Evaluation Date of Evaluation: 05/13/18 Time of Evaluation: 14:40 - Subjective Subjective: Patient complains of weakness and feels tired ,faiza her hemoglobin stays around 8 most of the time,has bodyaches always,no nausea,no vomiting,no diarrhea,no fever on antibiotics Objective - Vital Signs/Intake and Output Vital Signs (last 24 hours): Temp Pulse Resp BP Pulse Ox 98.0 F 79 18 118/72 98 05/13/18 07:25 05/13/18 07:25 05/13/18 07:25 05/13/18 11:00 05/13/18 07:25 - Medications Medications: Current Medications Diphenhydramine HCl (Benadryl) 25 mg IVP Q3H PRN PRN Reason: itching Last Admin: 05/13/18 14:46 Dose: 25 mg Enoxaparin Sodium (Lovenox) 40 mg SC DAILY [facility] Last Admin: 05/13/18 10:18 Dose: 40 mg Folic Acid (Folic Acid) 1 mg PO DAILY [facility] Last Admin: 05/13/18 10:18 Dose: 1 mg Hydromorphone HCl (Dilaudid) 1 mg IVP Q3H PRN PRN Reason: pain Last Admin: 05/13/18 14:45 Dose: 1 mg Hydroxyurea (Hydrea) 500 mg PO BID [facility] Last Admin: 05/13/18 10:18 Dose: 500 mg Sodium Chloride (Sodium Chloride 0.9%) 1,000 mls @ 100 mls/hr IV .Q10H [facility] Last Admin: 05/13/18 10:21 Dose: 100 mls/hr Cefepime HCl (Maxipime Iv 2 Gm Premix) 2 gm in 100 mls @ 100 mls/hr IVPB Q12H [facility]; Protocol Stop: 05/15/18 21:01 Last Admin: 05/13/18 09:15 Dose: 100 mls/hr Vancomycin/Sodium Chloride (Vancomycin 1 Gm/Ns 200 Ml) 1 gm in 200 mls @ 133.333 mls/hr IVPB Q12 [facility]; Protocol Stop: 05/16/18 22:01 Last Admin: 05/13/18 10:19 Dose: 133.333 mls/hr Pantoprazole Sodium (Protonix Ec Tab) 40 mg PO DAILY [facility] Last Admin: 05/13/18 10:18 Dose: 40 mg - Labs Labs: 05/12/18 07:41 05/12/18 07:41 - Constitutional Appears: No Acute Distress - Head Exam Head Exam: ATRAUMATIC, NORMOCEPHALIC - Eye Exam Eye Exam: Normal appearance Pupil Exam: NORMAL ACCOMODATION - ENT Exam ENT Exam: Mucous Membranes Moist - Neck Exam Neck Exam: Normal Inspection - Respiratory Exam Respiratory Exam: Decreased Breath Sounds, Clear to Ausculation Bilateral, NORMAL BREATHING PATTERN. absent: Accessory Muscle Use, Chest Wall Tenderness, Prolonged Expiratory Phase, Rales, Rhonchi, Wheezes, Respiratory Distress, Stridor - Cardiovascular Exam Cardiovascular Exam: REGULAR RHYTHM, RRR. absent: Bradycardia, Tachycardia, Clicks, Diastolic murmur, Gallop, Irregular Rhythm, JVD, Rubs, +S1, +S2, +S4, Murmur - GI/Abdominal Exam GI & Abdominal Exam: Soft, Normal Bowel Sounds - Extremities Exam Extremities Exam: Normal Inspection. absent: Calf Tenderness, Full ROM, Joint Swelling, Normal Capillary Refill, Pedal Edema, Tenderness Assessment and Plan (1) Leukocytosis Assessment & Plan: wbc still high has no exact source of infection identified has bodyache and joint pains with severe anemia she says she follows with Dr Drew and feels weak will repeat cbc and rachael follow Status: Acute (2) Abdominal pain Assessment & Plan: no pain now Status: Acute (3) Anemia Assessment & Plan: says her hemoglobin is generally around 8 feels weak Status: Acute
[2018-05-13 17:19] VITALS: RESP 20
[2018-05-13 17:26] LABS: BASO # 0.1 K/uL (0.0-0.2); BASO % 0.7 % (0.0-2.0); EOS # 0.8 K/uL (0.0-0.7); HEMOGLOBIN 7.8 g/dL (11.0-16.0); LYMPH # 6.6 K/uL (1.0-4.3); LYMPH % 43.8 % (20.0-40.0); MEAN CORPUSCULAR HEMOGLOBIN 34.1 pg (27.0-31.0); MEAN CORPUSCULAR HGB CONC 34.4 g/dL (33.0-37.0); MEAN PLATELET VOLUME 8.6 fL (7.2-11.7); MONO # 1.1 K/uL (0.0-0.8); MONO % 7.5 % (0.0-10.0); NEUT # 6.5 K/uL (1.8-7.0); NRBC % 1.2 % (0.0-2.0); RBC 2.29 Mil/uL (3.80-5.20); RED CELL DISTRIBUTION WIDTH 27.2 % (11.5-14.5); WHITE BLOOD COUNT 15.1 K/uL (4.8-10.8)
--- NOTE | 2018-05-13 21:44 | CP.PCM.PN ---
Subjective - Date & Time of Evaluation Date of Evaluation: 05/13/18 Time of Evaluation: 10:00 - Subjective Subjective: clinically same Objective - Vital Signs/Intake and Output Vital Signs (last 24 hours): Temp Pulse Resp BP Pulse Ox 98 F 79 20 119/75 97 05/13/18 15:15 05/13/18 15:15 05/13/18 15:15 05/13/18 15:15 05/13/18 15:15 - Medications Medications: Current Medications Diphenhydramine HCl (Benadryl) 25 mg IVP Q3H PRN PRN Reason: itching Last Admin: 05/13/18 20:53 Dose: 25 mg Folic Acid (Folic Acid) 1 mg PO DAILY [facility] Last Admin: 05/13/18 10:18 Dose: 1 mg Hydromorphone HCl (Dilaudid) 1 mg IVP Q3H PRN PRN Reason: pain Last Admin: 05/13/18 20:53 Dose: 1 mg Hydroxyurea (Hydrea) 500 mg PO BID [facility] Last Admin: 05/13/18 17:55 Dose: 500 mg Sodium Chloride (Sodium Chloride 0.9%) 1,000 mls @ 100 mls/hr IV .Q10H [facility] Last Admin: 05/13/18 20:40 Dose: Not Given Cefepime HCl (Maxipime Iv 2 Gm Premix) 2 gm in 100 mls @ 100 mls/hr IVPB Q12H [facility]; Protocol Stop: 05/15/18 21:01 Last Admin: 05/13/18 20:53 Dose: 100 mls/hr Vancomycin/Sodium Chloride (Vancomycin 1 Gm/Ns 200 Ml) 1 gm in 200 mls @ 133.33 3 mls/hr IVPB Q12 [facility]; Protocol Stop: 05/16/18 22:01 Last Admin: 05/13/18 10:19 Dose: 133.333 mls/hr Pantoprazole Sodium (Protonix Ec Tab) 40 mg PO DAILY [facility] Last Admin: 05/13/18 10:18 Dose: 40 mg - Labs Labs: 05/13/18 17:18 05/12/18 07:41 - Constitutional Appears: Well - Head Exam Head Exam: ATRAUMATIC, NORMAL INSPECTION, NORMOCEPHALIC - Eye Exam Eye Exam: EOMI, Normal appearance, PERRL Pupil Exam: NORMAL ACCOMODATION, PERRL - ENT Exam ENT Exam: Mucous Membranes Moist, Normal Exam - Neck Exam Neck Exam: Full ROM, Normal Inspection. absent: Lymphadenopathy - Respiratory Exam Respiratory Exam: Decreased Breath Sounds - Cardiovascular Exam Cardiovascular Exam: REGULAR RHYTHM, +S1, +S2 - GI/Abdominal Exam GI & Abdominal Exam: Soft, Diminished Bowel Sounds - Rectal Exam Rectal Exam: Deferred
[2018-05-14] MEDS: HYDROmorphone 1 mg/ml ISec IVP PRN ×4 (02:54→12:00)
[2018-05-14] MEDS: DiphenhydrAMINE 50 mg/ml Inj IVP PRN ×4 (02:56→11:59)
[2018-05-14] MEDS: Sodium Chloride 0.9% 1,000 ML IV SCH (06:06)
[2018-05-14 06:34] LABS: BASO # 0.2 K/uL (0.0-0.2); BASO % 0.9 % (0.0-2.0); EOS # 0.9 K/uL (0.0-0.7); EOS % 5.3 % (0.0-4.0); HEMOGLOBIN 8.3 g/dL (11.0-16.0); LYMPH # 5.9 K/uL (1.0-4.3); LYMPH % 35.8 % (20.0-40.0); MEAN CELL VOLUME 97.5 fL (81.0-99.0); MEAN CORPUSCULAR HEMOGLOBIN 33.8 pg (27.0-31.0); MEAN CORPUSCULAR HGB CONC 34.6 g/dL (33.0-37.0); MEAN PLATELET VOLUME 8.1 fL (7.2-11.7); MONO # 1.6 K/uL (0.0-0.8); MONO % 9.7 % (0.0-10.0); NEUT % 48.3 % (50.0-75.0); NRBC % 1.2 % (0.0-2.0); RBC 2.45 Mil/uL (3.80-5.20); RED CELL DISTRIBUTION WIDTH 25.7 % (11.5-14.5); WHITE BLOOD COUNT 16.6 K/uL (4.8-10.8)
[2018-05-14 07:50] LABS: ALB/GLOB RATIO 1.3 (1.0-2.1); ALBUMIN 3.9 g/dL (3.5-5.0); ALT/SGPT 115 U/L (9-52); AST/SGOT 91 U/L (14-36); BLOOD UREA NITROGEN 16 mg/dL (7-17); CALCIUM 9.1 mg/dl (8.6-10.4); GFR NON-AFRICAN AMERICAN > 60
[2018-05-14 08:08] VITALS: BP 105/69; PULSE 77; TEMP 98.4; O2SAT 95
[2018-05-14] MEDS: Pantoprazole 40 mg EC Tab PO SCH (09:02)
[2018-05-14] MEDS: Cefepime IV 2 gm in Dextrose 2 GM/100 ML BAG IVPB SCH (09:04)
[2018-05-14] MEDS: Vancomycin 1 gm/NS 200 ml 1 GM/200 ML BAG IVPB SCH (10:00)
--- NOTE | 2018-05-14 12:53 | CP.PCM.PN ---
Subjective - Date & Time of Evaluation Date of Evaluation: 05/14/18 Time of Evaluation: 10:30 - Subjective Subjective: Medicine progress note ( Dr. Enzo Louis) Patient was seen and examined at bedside, while eating breakfast. Patient states that she is doing well and has no acute issues or complaints. Patient denies any symptoms of fever, chills, nausea, vomiting, chills, abdominal pain, chest pain, palpitations, shortness of breath, diarrhea or constipation. Patient is ambulating and tolerating diet without any difficulties. Objective - Vital Signs/Intake and Output Vital Signs (last 24 hours): Temp Pulse Resp BP Pulse Ox 98.4 F 77 20 105/69 95 05/14/18 07:20 05/14/18 07:20 05/14/18 07:20 05/14/18 07:20 05/14/18 07:20 - Medications Medications: Current Medications Diphenhydramine HCl (Benadryl) 25 mg IVP Q3H PRN PRN Reason: itching Last Admin: 05/14/18 11:59 Dose: 25 mg Folic Acid (Folic Acid) 1 mg PO DAILY [facility] Last Admin: 05/14/18 09:02 Dose: 1 mg Hydromorphone HCl (Dilaudid) 1 mg IVP Q3H PRN PRN Reason: pain Last Admin: 05/14/18 12:00 Dose: 1 mg Hydroxyurea (Hydrea) 500 mg PO BID [facility] Last Admin: 05/14/18 09:24 Dose: 500 mg Sodium Chloride (Sodium Chloride 0.9%) 1,000 mls @ 100 mls/hr IV .Q10H [facility] Last Admin: 05/14/18 06:06 Dose: 100 mls/hr Cefepime HCl (Maxipime Iv 2 Gm Premix) 2 gm in 100 mls @ 100 mls/hr IVPB Q12H [facility]; Protocol Stop: 05/15/18 21:01 Last Admin: 05/14/18 09:04 Dose: 100 mls/hr Vancomycin/Sodium Chloride (Vancomycin 1 Gm/Ns 200 Ml) 1 gm in 200 mls @ 133.333 mls/hr IVPB Q12 [facility]; Protocol Stop: 05/16/18 22:01 Last Admin: 05/13/18 21:46 Dose: 133.333 mls/hr Pantoprazole Sodium (Protonix Ec Tab) 40 mg PO DAILY [facility] Last Admin: 05/14/18 09:02 Dose: 40 mg - Labs Labs: 05/14/18 06:23 05/14/18 06:24 - Constitutional Appears: No Acute Distress - Head Exam Head Exam: ATRAUMATIC, NORMAL INSPECTION - Eye Exam Eye Exam: EOMI, Normal appearance - ENT Exam ENT Exam: Mucous Membranes Moist - Respiratory Exam Respiratory Exam: Clear to Ausculation Bilateral, NORMAL BREATHING PATTERN. absent: Prolonged Expiratory Phase, Rhonchi, Wheezes, Respiratory Distress - Cardiovascular Exam Cardiovascular Exam: REGULAR RHYTHM, +S1, +S2. absent: Diastolic murmur, Murmur - GI/Abdominal Exam GI & Abdominal Exam: Soft, Normal Bowel Sounds. absent: Firm, Guarding, Rigid, Tenderness - Extremities Exam Extremities Exam: Normal Inspection. absent: Calf Tenderness, Pedal Edema - Back Exam Back Exam: NORMAL INSPECTION - Neurological Exam Neurological Exam: Alert, Awake, Oriented x3 - Psychiatric Exam Psychiatric exam: Normal Affect - Skin Skin Exam: Normal Color Assessment and Plan (1) Leukocytosis Assessment & Plan: Patient is a 32 year old female with past medical history of sickle cell, who was admitted for abdominal pain/Nausea with elevated WBC: Imaging: Abdomen/Pelvis CT: No acute abnormality. 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 Mild hepatomegaly. Stable low-density mass in dome of right hepatic lobe. Status post splenectomy. Status post cholecystectomy. Stable left ovarian cyst, presumed physiologic. No other significant abnormality.There is not felt to be evidence of enteritis on the basis of this examination. Labs/Vital signs : -Leukocytosis -Blood culture: Negative for 5 days and Urine culture negative X2 -Afebrile - Vancomycin 1gm IV daily - Cefepime 2gm IV daily (4 days) Management for chronic management (Sickle Cell disease) - Hydrea 500mg PO BID - Folic 1mg PO daily Disposition: Patient was discharge as per Dr. Enzo Louis Please complete this course of antibiotics: - Augmentin 500mg PO Q12H for [address] Tejal Louis - Please follow up with Dr. Ariel Louis in 1-3 days or your primary care physician in 1-3 days - Please continue to follow up with your digital tech/Oncologist, Dr. Drew as necessary and as needed Please resume all your home medications as instructed Please continue hydration Please return to the hospital if symptoms resume or worsening symptoms. Please take care Patient left without obtaining appropriate instructions or prescription Status: Acute
--- NOTE | 2018-05-14 17:55 | CARD ---
APPROVED REPORT Date of service: 05/12/2018 EKG Measurement Heart [id number] <Conclusion> Normal sinus rhythm Normal ECG
== END 2018-05-14 13:26 | disposition home or self-care (01) | DRG 398 ==
LOC: C.ER 17:09 → C.9E 23:37 → C.6T 05-09 15:18
PROVIDERS: ADMIT Internal Medicine Nephrology; ATTEND Internal Medicine Nephrology
DX: D72.829 Elevated white blood cell count, unspecified (principal); D57.1 Sickle-cell disease without crisis; N83.202 Unspecified ovarian cyst, left side; Z87.01 Personal history of pneumonia (recurrent); Q63.8 Other specified congenital malformations of kidney

== ENCOUNTER 2018-05-25 08:45 | Emergency (ER) | payer MEDICAID ==
[2018-05-25 08:45] VITALS: BMI 24.5
[2018-05-25 08:52] VITALS: RESP 18
[2018-05-25] MEDS ORDERED: Sodium Chloride 0.9% 1,000 ML IV STA (09:28)
--- NOTE | 2018-05-25 10:29 | C.PDOC ---
History Of Present Illness 32 y/o female presents to ED with c/o chronic pain for several days associated with mild nausea. Patient states 1 week ago she was seen by pipe cleaning machine operator for routine follow up. Patient denies fever, chills, vomiting or any other compla ints at this time. Time Seen by Provider: 05/25/18 08:56 Chief Complaint (Nursing): Pain, Chronic History Per: Patient History/Exam Limitations: no limitations Onset/Duration Of Symptoms: Days Current Symptoms Are (Timing): Still Present Past Medical History Reviewed: Historical Data, Nursing Documentation, Vital Signs Vital Signs: Last Vital Signs Temp 98 F 05/25/18 08:49 Pulse 101 H 05/25/18 08:49 Resp 18 05/25/18 08:49 BP 118/81 05/25/18 08:49 Pulse Ox 96 05/25/18 08:49 - Medical History PMH: Anemia, Bronchitis, Gall Bladder Disease, Pneumonia, Sickle Cell Disease Surgical History: Cholecystectomy - [facility] Procedures INFLUENZA VACCINATION (03/16/12) INJECT/INFUSE ELECTROLYT (09/07/13) INJECT/INFUSE NEC (01/25/14) INSERT VAD RESERVOIR IN CHEST SUBCU/FASCIA, OPEN (05/31/17) INSERTION OF INFUSION DEV INTO SUP VENA CAVA, PERC APPROACH (01/25/17) NEBULIZER THERAPY (12/02/13) PACKED CELL TRANSFUSION (02/12/15) REMOVAL OF VAD FROM TRUNK SUBCU/FASCIA, OPEN APPROACH (04/15/16) TRANSFUSE NONAUT RED BLOOD CELLS IN PERIPH VEIN, PERC (03/30/18) VACCINATION NEC (08/22/13) Family History: States: No Known Family Hx - Social History Hx Tobacco Use: No Hx Alcohol Use: No Hx Substance Use: No - Immunization History Hx Tetanus Toxoid Vaccination: Yes Hx Influenza Vaccination: Yes Hx Pneumococcal Vaccination: Yes Review Of Systems Constitutional: Positive for: Other (chronic pain). Negative for: Fever, Chills Cardiovascular: Negative for: Chest Pain Respiratory: Negative for: Cough, Shortness of Breath Gastrointestinal: Negative for: Nausea, Vomiting Skin: Negative for: Rash Physical Exam - Physical Exam Appears: Non-toxic, No Acute Distress, Other (Playing video game on phone) Skin: Warm, Dry, No Rash Head: Atraumatic, Normacephalic Eye(s): bilateral: Normal Inspection Oral Mucosa: Moist Neck: Normal ROM, Supple Cardiovascular: Rhythm Regular Respiratory: Normal Breath Sounds, No Rales, No Rhonchi, No Wheezing Gastrointestinal/Abdominal: Soft, No Tenderness, No Guarding, No Rebound Extremity: Normal ROM, Capillary Refill (<2 seconds) Neurological/Psych: Oriented x3, Normal Speech, Normal Cognition ED Course And Treatment - Laboratory Results Result Diagrams: 05/25/18 11:39 05/25/18 11:39 O2 Sat by Pulse Oximetry: 96 (RA) Pulse Ox Interpretation: Normal Disposition - Disposition Referrals: [facility] Charbel Serrano, [Non-Staff] - Disposition: HOME/ ROUTINE Disposition Time: 12:45 Condition: IMPROVED Additional Instructions: IMELDA SANTIAGO, thank you for letting us take care of you today. The emergency medical care you received today was directed at your acute symptoms. If you were prescribed any medication, please fill it and take as directed. It may take several days for your symptoms to resolve. Return to the Emergency Department if your symptoms worsen, do not improve, or if you have any other problems. Please contact your doctor or call one of the physicians/clinics you have been referred to that are listed on the Patient Visit Information form that is included in your discharge packet. Bring any paperwork you were given at discharge with you along with any medications you are taking to your follow up visit. Our treatment cannot replace ongoing medical care by a primary care provider outside of the emergency department. Thank you for allowing the [facility] team to be part of your care today. Follow up with your primary care doctor or your pipe cleaning machine operator this week for re- evaluation and further management. Instructions: Chronic Pain (DC) Forms: [employer] (Dutch) - Clinical Impression Clinical Impression: Chronic pain - Scribe Statement The provider has reviewed the documentation as recorded by the Zacheryibvalarie Rodriguez All medical record entries made by the Zacheryibvalarie were at my direction and personally dictated by me. I have reviewed the chart and agree that the record accurately reflects my personal performance of the history, physical exam, medical decision making, and the department course for this patient. I have also personally directed, reviewed, and agree with the discharge instructions and disposition.
[2018-05-25] MEDS ORDERED: Sodium Chloride 0.9% 1,000 ML ONE (11:23)
[2018-05-25 11:51] LABS: HEMOGLOBIN 8.1 g/dL (11.0-16.0); MEAN CORPUSCULAR HGB CONC 34.4 g/dL (33.0-37.0); MEAN PLATELET VOLUME 8.4 fL (7.2-11.7); RBC 2.32 Mil/uL (3.80-5.20); RED CELL DISTRIBUTION WIDTH 29.1 % (11.5-14.5); WHITE BLOOD COUNT 12.4 K/uL (4.8-10.8)
[2018-05-25 11:58] LABS: MEAN CELL VOLUME 101.8 fL (81.0-99.0)
[2018-05-25 12:08] LABS: ALB/GLOB RATIO 1.3 (1.0-2.1); ALBUMIN 4.2 g/dL (3.5-5.0); ALT/SGPT 126 U/L (9-52); AST/SGOT 96 U/L (14-36); BLOOD UREA NITROGEN 12 mg/dL (7-17); CALCIUM 9.3 mg/dl (8.6-10.4); GFR NON-AFRICAN AMERICAN > 60
[2018-05-25 12:35] VITALS: BP 111/71; PULSE 86; TEMP 98.4
[2018-05-25 18:24] VITALS: O2SAT 96
== END 2018-05-25 13:37 | disposition home or self-care (01) ==
LOC: C.ER 08:45
DX: G89.29 Other chronic pain (principal)
CPT/HCPCS: 80053; 85027; 85044; 99285; J7030

== ENCOUNTER 2018-05-30 11:11 | Emergency (ER) | payer MEDICAID ==
[2018-05-30 11:12] VITALS: BMI 24.5
[2018-05-30] MEDS ORDERED: Sodium Chloride 0.9% 1,000 ML IV STA (12:05)
[2018-05-30] MEDS ORDERED: DiphenhydrAMINE 50 mg/ml Inj IVP STA (12:05)
[2018-05-30] MEDS ORDERED: Sodium Chloride 0.9% 250 ML IV ONE (12:47)
--- NOTE | 2018-05-30 14:11 | C.PDOC ---
History Of Present Illness 32 y/o female presents to ED complaining of generalized body ache. Otherwise she denies any fever, chills, abdominal pain, nausea, vomiting, or any other physical complaints. Patient looks upset and stressed out over in the family. Time Seen by Provider: 05/30/18 11:41 Chief Complaint (Nursing): Pain, Chronic History Per: Patient History/Exam Limitations: no limitations Onset/Duration Of Symptoms: Days Current Symptoms Are (Timing): Still Present Past Medical History Reviewed: Historical Data, Nursing Documentation, Vital Signs Vital Signs: Last Vital Signs Temp 98.7 F 05/30/18 13:39 Pulse 83 05/30/18 13:39 Resp 18 05/30/18 13:39 BP 103/67 05/30/18 13:39 Pulse Ox 98 05/30/18 13:39 - Medical History PMH: Anemia, Bronchitis, Gall Bladder Disease, Pneumonia, Sickle Cell Disease Denies: Chronic Kidney Disease Surgical History: Cholecystectomy - [facility] Procedures INFLUENZA VACCINATION (03/16/12) INJECT/INFUSE ELECTROLYT (09/07/13) INJECT/INFUSE NEC (01/25/14) INSERT VAD RESERVOIR IN CHEST SUBCU/FASCIA, OPEN (05/31/17) INSERTION OF INFUSION DEV INTO SUP VENA CAVA, PERC APPROACH (01/25/17) NEBULIZER THERAPY (12/02/13) PACKED CELL TRANSFUSION (02/12/15) REMOVAL OF VAD FROM TRUNK SUBCU/FASCIA, OPEN APPROACH (04/15/16) TRANSFUSE NONAUT RED BLOOD CELLS IN PERIPH VEIN, PERC (03/30/18) VACCINATION NEC (08/22/13) Family History: States: No Known Family Hx - Social History Hx Tobacco Use: No Hx Alcohol Use: No Hx Substance Use: No - Immunization History Hx Tetanus Toxoid Vaccination: Yes Hx Influenza Vaccination: Yes Hx Pneumococcal Vaccination: Yes Review Of Systems Except As Marked, All Systems Reviewed And Found Negative. Constitutional: Negative for: Fever, Chills Respiratory: Negative for: Shortness of Breath Gastrointestinal: Negative for: Nausea, Vomiting, Abdominal Pain Neurological: Positive for: Weakness Physical Exam - Physical Exam Appears: Non-toxic, No Acute Distress Skin: Warm, Dry Head: Atraumatic, Normacephalic Eye(s): bilateral: Normal Inspection Oral Mucosa: Moist Neck: Supple Chest: Symmetrical Cardiovascular: Rhythm Regular, No Murmur Respiratory: Normal Breath Sounds, No Rales, No Rhonchi, No Wheezing Gastrointestinal/Abdominal: Soft, No Tenderness Extremity: Bilateral: Atraumatic, Normal Color And Temperature, Normal ROM Neurological/Psych: Oriented x3, Normal Speech ED Course And Treatment O2 Sat by Pulse Oximetry: 98 (RA) Pulse Ox Interpretation: Normal Progress Note: Patient was given Benadryl, Dilaudid po protocol and IV fluids. On re-evaluation, patient is resting comfortably and tolerating PO. Patient will be discharged home. Disposition - Disposition Referrals: Giovanna Drew MD [Staff Provider] - Enzo Louis MD [Staff Provider] - Disposition: HOME/ ROUTINE Disposition Time: 15:41 Condition: STABLE Additional Instructions: Follow up with PMD and Fiberglass Roller within 1-2 days. Return o ED if feel worse. Instructions: Sickle Cell Disease (DC) Forms: [employer] [employer] (Serbian) - Clinical Impression Clinical Impression: Sickle cell crisis - PA / [employer] / Resident Statement MD/DO has reviewed & agrees with the documentation as recorded. - Scribe Statement The provider has reviewed the documentation as recorded by the Scribe Veronica Cervantes All medical record entries made by the Scribvalarie were at my direction and personally dictated by me. I have reviewed the chart and agree that the record accurately reflects my personal performance of the history, physical exam, medical decision making, and the department course for this patient. I have also personally directed, reviewed, and agree with the discharge instructions and disposition.
[2018-05-30 15:11] VITALS: BP 119/81; PULSE 84; RESP 17; TEMP 98.5
[2018-05-30 15:43] VITALS: O2SAT 98
== END 2018-05-30 16:11 | disposition home or self-care (01) ==
LOC: C.ER 11:11
DX: D57.00 Hb-SS disease with crisis, unspecified (principal)
CPT/HCPCS: 96360; 99285; J7030

== ENCOUNTER 2018-05-31 10:08 | Emergency (ER) | payer MEDICAID ==
[2018-05-31 10:08] VITALS: BMI 24.5
[2018-05-31 10:18] VITALS: RESP 16
[2018-05-31] MEDS ORDERED: Morphine 10 mg/5 ml Oral Soln PO STA (11:16)
--- NOTE | 2018-05-31 11:19 | C.PDOC ---
History Of Present Illness 32 yo female w/PMHx of SCA, comes in reports worsening of chronic body pain " my bones hurts" developed since 3 AM today. Pt denies fever, chills, abd. pain, V/D, UTI sx. FYI: Multiple, almost daily, ED visits due to same complaints. Last one was yesterday. Time Seen by Provider: 05/31/18 10:28 Chief Complaint (Nursing): Pain, Chronic History Per: Patient Past Medical History Reviewed: Historical Data, Nursing Documentation, Vital Signs Vital Signs: Last Vital Signs Temp 98.7 F 05/31/18 10:16 Pulse 96 H 05/31/18 10:16 Resp 16 05/31/18 10:16 BP 132/77 05/31/18 10:16 Pulse Ox 98 05/31/18 10:16 - Medical History PMH: Anemia, Bronchitis, Gall Bladder Disease, Pneumonia, Sickle Cell Disease Denies: Chronic Kidney Disease Surgical History: Cholecystectomy - [facility] Procedures INFLUENZA VACCINATION (03/16/12) INJECT/INFUSE ELECTROLYT (09/07/13) INJECT/INFUSE NEC (01/25/14) INSERT VAD RESERVOIR IN CHEST SUBCU/FASCIA, OPEN (05/31/17) INSERTION OF INFUSION DEV INTO SUP VENA CAVA, PERC APPROACH (01/25/17) NEBULIZER THERAPY (12/02/13) PACKED CELL TRANSFUSION (02/12/15) REMOVAL OF VAD FROM TRUNK SUBCU/FASCIA, OPEN APPROACH (04/15/16) TRANSFUSE NONAUT RED BLOOD CELLS IN PERIPH VEIN, PERC (03/30/18) VACCINATION NEC (08/22/13) Family History: States: Unknown Family Hx - Social History Hx Tobacco Use: No Hx Alcohol Use: No Hx Substance Use: No - Immunization History Hx Tetanus Toxoid Vaccination: Yes Hx Influenza Vaccination: Yes Hx Pneumococcal Vaccination: Yes Review Of Systems Except As Marked, All Systems Reviewed And Found Negative. Constitutional: Negative for: Fever, Chills Eyes: Negative for: Vision Change Cardiovascular: Negative for: Chest Pain, Light Headedness Respiratory: Negative for: Shortness of Breath, Wheezing Gastrointestinal: Negative for: Nausea, Vomiting, Abdominal Pain, Diarrhea Genitourinary: Negative for: Dysuria Neurological: Negative for: Weakness, Numbness, Altered Mental Status, Dizziness Physical Exam - Physical Exam Appears: Well, Non-toxic, No Acute Distress Skin: Normal Color, Warm, Dry Head: Normacephalic Eye(s): bilateral: PERRL Nose: No Flaring, No Discharge Oral Mucosa: Moist Throat: No Drooling Neck: Trachea Midline Cardiovascular: Rhythm Regular, No Murmur, No JVD Respiratory: No Decreased Breath Sounds, No Accessory Muscle Use, No Stridor, No Wheezing Gastrointestinal/Abdominal: Soft, No Tenderness, No Distention, No Guarding Back: No CVA Tenderness Extremity: Normal ROM, No Tenderness, No Pedal Edema Neurological/Psych: Oriented x3, Normal Speech ED Course And Treatment - Laboratory Results Result Diagrams: 05/31/18 12:00 05/31/18 12:00 Lab Interpretation: No Changes Compared To Prior Results O2 Sat by Pulse Oximetry: 98 Pulse Ox Interpretation: Normal Progress Note: Pt was OBS in ED for 2 hours and remained stable. On re-eval, afebrile, hemodynamicaly stable. Ambulatory in Ed with stable gait. PulsEOx 98% RA. ENT: no acute findings. neck: Supple, (-) JVD. Lungs: CTA B/L, BS equal B/L. CVS: (+)S1S2, reg. Abd: benign. Neuorlogicaly intact. Blood work review and appears baseline, RC- baseline. Pt requested psych eval, " Im going through a lot lately, feeling depressed", pt denies suicidal ideation or attempts. Pt was seen by PES, cleared for discharge, was given outpt F/U services. Pt has clinical findings c/w chr. pain, hx of SCA. STable for discharge now. Disposition Counseled Patient/Family Regarding: Studies Performed, Diagnosis, Need For Followup - Disposition Referrals: [facility] [Outside] Disposition: HOME/ ROUTINE Disposition Time: 12:46 Condition: STABLE Additional Instructions: Follow up with PMD in 2-3 days for re-evaluation. Follow up with psychiatrist in 2-3 days for further evaluation and treatment as need return to ED if any worsening or new changes. Instructions: Sickle Cell Disease, Chronic Pain (DC) Forms: [employer] (Khmer) - Clinical Impression Clinical Impression: Chronic pain, Sickle cell disease
[2018-05-31] MEDS ORDERED: Morphine 30 mg SR Tab PO ONE (11:35)
[2018-05-31] MEDS ORDERED: Morphine 30 mg SR Tab PO STA (11:39)
[2018-05-31 12:17] LABS: BASO # 0.1 K/uL (0.0-0.2); EOS # 0.2 K/uL (0.0-0.7); EOS % 1.6 % (0.0-4.0); LYMPH % 28.4 % (20.0-40.0); MEAN CORPUSCULAR HEMOGLOBIN 34.1 pg (27.0-31.0); MEAN CORPUSCULAR HGB CONC 34.7 g/dL (33.0-37.0); MEAN PLATELET VOLUME 8.8 fL (7.2-11.7); MONO # 0.8 K/uL (0.0-0.8); MONO % 7.8 % (0.0-10.0); NEUT # 6.5 K/uL (1.8-7.0); NEUT % 61.2 % (50.0-75.0); NRBC % 1.3 % (0.0-2.0); RBC 2.96 Mil/uL (3.80-5.20); RED CELL DISTRIBUTION WIDTH 25.6 % (11.5-14.5); WHITE BLOOD COUNT 10.6 K/uL (4.8-10.8)
[2018-05-31 12:21] LABS: HEMOGLOBIN 10.1 g/dL (11.0-16.0); MEAN CELL VOLUME 98.4 fL (81.0-99.0)
[2018-05-31 12:28] LABS: SQUAMOUS EPITHIAL 8 /hpf (0-5); URINE BACTERIA RARE (<OCC); URINE BILIRUBIN NEGATIVE (NEGATIVE); URINE BLOOD NEGATIVE (NEGATIVE); URINE CLARITY Clear (Clear); URINE COLOR Yellow (YELLOW); URINE GLUCOSE (UA) NORMAL (Normal); URINE LEUKOCYTE ESTERASE NEG Leu/uL (Negative); URINE PROTEIN NEGATIVE (NEGATIVE); URINE UROBILINOGEN NORMAL mg/dL (0.2-1.0)
[2018-05-31 12:43] LABS: ALB/GLOB RATIO 1.3 (1.0-2.1); ALBUMIN 4.4 g/dL (3.5-5.0); ALT/SGPT 221 U/L (9-52); AST/SGOT 148 U/L (14-36); BLOOD UREA NITROGEN 12 mg/dL (7-17); CALCIUM 9.8 mg/dl (8.6-10.4); GFR NON-AFRICAN AMERICAN > 60
[2018-05-31 13:04] VITALS: BP 127/78; PULSE 90; TEMP 98.6; O2SAT 99
== END 2018-05-31 13:03 | disposition home or self-care (01) ==
LOC: C.ER 10:08
DX: G89.29 Other chronic pain (principal); D57.1 Sickle-cell disease without crisis

== ENCOUNTER 2018-06-01 11:00 | Emergency (ER) | payer MEDICAID ==
[2018-06-01 11:01] VITALS: BMI 24.5
[2018-06-01] MEDS ORDERED: DiphenhydrAMINE 12.5 mg/5 ml LIQ UD (5 ml) PO STA (12:06)
[2018-06-01 12:24] VITALS: RESP 20; O2SAT 97
[2018-06-01] MEDS ORDERED: Sodium Chloride 0.9% 1,000 ML IV ONE (12:24)
--- NOTE | 2018-06-01 12:46 | C.PDOC ---
History Of Present Illness 32 y/o female presents to the ED complaining of bodyaches and nausea. She denies any SOB, cough, fever, vomiting, diarrhea. Patient was recently diagnosed with a UTI and is on her last day of antibiotics. She states UTI symptoms are improved. Time Seen by Provider: 06/01/18 11:19 Chief Complaint (Nursing): Abdominal Pain History Per: Patient History/Exam Limitations: no limitations Onset/Duration Of Symptoms: Days Current Symptoms Are (Timing): Still Present Past Medical History Reviewed: Historical Data, Nursing Documentation, Vital Signs Vital Signs: Last Vital Signs Temp 98.3 F 06/01/18 11:12 Pulse 88 06/01/18 12:22 Resp 20 06/01/18 12:22 BP 124/76 06/01/18 12:22 Pulse Ox 97 06/01/18 12:22 - Medical History PMH: Anemia, Bronchitis, Gall Bladder Disease, Pneumonia, Sickle Cell Disease Denies: Chronic Kidney Disease Surgical History: Cholecystectomy - [facility] Procedures INFLUENZA VACCINATION (03/16/12) INJECT/INFUSE ELECTROLYT (09/07/13) INJECT/INFUSE NEC (01/25/14) INSERT VAD RESERVOIR IN CHEST SUBCU/FASCIA, OPEN (05/31/17) INSERTION OF INFUSION DEV INTO SUP VENA CAVA, PERC APPROACH (01/25/17) NEBULIZER THERAPY (12/02/13) PACKED CELL TRANSFUSION (02/12/15) REMOVAL OF VAD FROM TRUNK SUBCU/FASCIA, OPEN APPROACH (04/15/16) TRANSFUSE NONAUT RED BLOOD CELLS IN PERIPH VEIN, PERC (03/30/18) VACCINATION NEC (08/22/13) Family History: States: Unknown Family Hx - Social History Hx Tobacco Use: No Hx Alcohol Use: No Hx Substance Use: No (Former) - Immunization History Hx Tetanus Toxoid Vaccination: Yes Hx Influenza Vaccination: Yes Hx Pneumococcal Vaccination: Yes Review Of Systems Constitutional: Positive for: Other (Diffuse body aches). Negative for: Fever Cardiovascular: Negative for: Chest Pain Respiratory: Negative for: Cough, Shortness of Breath Gastrointestinal: Positive for: Nausea. Negative for: Vomiting, Diarrhea Physical Exam - Physical Exam Appears: Non-toxic, No Acute Distress Skin: Warm, Dry, No Rash Head: Atraumatic, Normacephalic Eye(s): bilateral: Normal Inspection, PERRL, EOMI Oral Mucosa: Moist Neck: Normal ROM Chest: Symmetrical Cardiovascular: Rhythm Regular, No Murmur Respiratory: Normal Breath Sounds, No Accessory Muscle Use, Other (Speaking in complete sentences) Gastrointestinal/Abdominal: Soft, No Tenderness, No Distention Extremity: Bilateral: Atraumatic, Normal Color And Temperature, Normal ROM Pulses: Left Dorsalis Pedis: Normal, Right Dorsalis Pedis: Normal Neurological/Psych: Oriented x3, Normal Speech ED Course And Treatment O2 Sat by Pulse Oximetry: 97 (RA) Pulse Ox Interpretation: Normal Progress Note: Administered NS IVF x 1 bolus, 16 mg PO dilaudid, and 25 mg PO benadryl. Disposition Counseled Patient/Family Regarding: Studies Performed, Diagnosis, Need For Followup - Disposition Referrals: Enzo Louis MD [Staff Provider] - Disposition: HOME/ ROUTINE Disposition Time: 15:05 Condition: STABLE Additional Instructions: FOLLOW UP WITH YOUR DOCTOR IN 1-2 DAYS RETURN TO ER IF SYMPTOMS WORSEN Instructions: Sickle Cell Disease (DC) Forms: [employer] (Syriac) Print Language: HONDURAN - Clinical Impression Clinical Impression: Sickle cell pain crisis - Scribe Statement The provider has reviewed the documentation as recorded by the Rosa Vera Provider Attestation: All medical record entries made by the Rosa were at my direction and personally dictated by me. I have reviewed the chart and agree that the record accurately reflects my personal performance of the history, physical exam, medical decision making, and the department course for this patient. I have also personally directed, reviewed, and agree with the discharge instructions and disposition.
[2018-06-01 15:18] VITALS: BP 127/75; PULSE 95; TEMP 97.5
== END 2018-06-01 15:41 | disposition home or self-care (01) ==
LOC: C.ER 11:00
DX: D57.00 Hb-SS disease with crisis, unspecified (principal)
CPT/HCPCS: 96360; 99285; J7030

== ENCOUNTER 2018-06-12 19:55 | Emergency (ER) | payer MEDICAID ==
[2018-06-12 19:55] VITALS: BMI 24.5
[2018-06-12 20:59] LABS: BASO # 0.1 K/uL (0.0-0.2); BASO % 0.6 % (0.0-2.0); EOS # 0.1 K/uL (0.0-0.7); EOS % 0.9 % (0.0-4.0); HEMOGLOBIN 8.7 g/dL (11.0-16.0); LYMPH % 36.9 % (20.0-40.0); MEAN CELL VOLUME 93.1 fL (81.0-99.0); MEAN CORPUSCULAR HEMOGLOBIN 31.7 pg (27.0-31.0); MEAN PLATELET VOLUME 8.2 fL (7.2-11.7); MONO % 7.1 % (0.0-10.0); NEUT # 7.4 K/uL (1.8-7.0); NEUT % 54.5 % (50.0-75.0); NRBC % 0.2 % (0.0-2.0); RBC 2.74 Mil/uL (3.80-5.20); RED CELL DISTRIBUTION WIDTH 19.8 % (11.5-14.5); WHITE BLOOD COUNT 13.7 K/uL (4.8-10.8)
[2018-06-12 21:10] LABS: BLOOD UREA NITROGEN 14 mg/dL (7-17); CALCIUM 9.1 mg/dl (8.6-10.4); GFR NON-AFRICAN AMERICAN > 60
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
--- NOTE | 2018-06-12 21:35 | C.PDOC ---
Time Seen by Provider: 06/12/18 20:19 Chief Complaint (Nursing): Pain, Chronic Past Medical History Vital Signs: Last Vital Signs Temp 98.6 F 06/12/18 20:09 Pulse 100 H 06/12/18 20:09 Resp 20 06/12/18 20:09 BP 121/81 06/12/18 20:09 Pulse Ox 97 06/12/18 20:09 - Medical History PMH: Anemia, Bronchitis, Gall Bladder Disease, Pneumonia, Sickle Cell Disease Denies: Chronic Kidney Disease Surgical History: Cholecystectomy - [facility] Procedures INFLUENZA VACCINATION (03/16/12) INJECT/INFUSE ELECTROLYT (09/07/13) INJECT/INFUSE NEC (01/25/14) INSERT VAD RESERVOIR IN CHEST SUBCU/FASCIA, OPEN (05/31/17) INSERTION OF INFUSION DEV INTO SUP VENA CAVA, PERC APPROACH (01/25/17) NEBULIZER THERAPY (12/02/13) PACKED CELL TRANSFUSION (02/12/15) REMOVAL OF VAD FROM TRUNK SUBCU/FASCIA, OPEN APPROACH (04/15/16) TRANSFUSE NONAUT RED BLOOD CELLS IN PERIPH VEIN, PERC (03/30/18) VACCINATION NEC (08/22/13) Family History: States: Unknown Family Hx - Social History Hx Tobacco Use: No Hx Alcohol Use: No Hx Substance Use: No (Former) - Immunization History Hx Tetanus Toxoid Vaccination: Yes Hx Influenza Vaccination: Yes Hx Pneumococcal Vaccination: Yes ED Course And Treatment - Laboratory Results Result Diagrams: 06/12/18 20:56 06/12/18 20:56 O2 Sat by Pulse Oximetry: 97 Disposition - Disposition Forms: [employer] (Pakistani)
[2018-06-12 21:45] VITALS: BP 129/83; PULSE 95; RESP 18; TEMP 98.5
[2018-06-12 23:07] VITALS: O2SAT 97
== END 2018-06-12 21:45 | disposition home or self-care (01) ==
LOC: C.ER 19:55
DX: D57.00 Hb-SS disease with crisis, unspecified (principal)

== ENCOUNTER 2018-06-13 22:57 | Emergency (ER) | payer MEDICAID ==
[2018-06-13 22:58] VITALS: BMI 24.5
[2018-06-13 23:13] VITALS: RESP 18; O2SAT 98
--- NOTE | 2018-06-14 01:10 | C.PDOC ---
History Of Present Illness 32 year old female with PMHx of sickle cell anemia presents to the ED c/o generalized body aches due to her sickle cell disease. Patient denies fever, chills, SOB, CP, palpitations, cough, injuries/falls, abdominal pain, nausea/vomiting. Time Seen by Provider: 06/13/18 23:16 Chief Complaint (Nursing): Pain, Chronic History Per: Patient History/Exam Limitations: no limitations Current Symptoms Are (Timing): Still Present Recent travel outside of the [place]: No Additional History Per: Patient Past Medical History Reviewed: Historical Data, Nursing Documentation, Vital Signs Vital Signs: Last Vital Signs Temp 98.5 F 06/13/18 23:10 Pulse 112 H 06/13/18 23:10 Resp 18 06/13/18 23:10 BP Pulse Ox 98 06/13/18 23:10 - Medical History PMH: Anemia, Bronchitis, Gall Bladder Disease, Pneumonia, Sickle Cell Disease Surgical History: Cholecystectomy - [facility] Procedures INFLUENZA VACCINATION (03/16/12) INJECT/INFUSE ELECTROLYT (09/07/13) INJECT/INFUSE NEC (01/25/14) INSERT VAD RESERVOIR IN CHEST SUBCU/FASCIA, OPEN (05/31/17) INSERTION OF INFUSION DEV INTO SUP VENA CAVA, PERC APPROACH (01/25/17) NEBULIZER THERAPY (12/02/13) PACKED CELL TRANSFUSION (02/12/15) REMOVAL OF VAD FROM TRUNK SUBCU/FASCIA, OPEN APPROACH (04/15/16) TRANSFUSE NONAUT RED BLOOD CELLS IN PERIPH VEIN, PERC (03/30/18) VACCINATION NEC (08/22/13) Family History: States: No Known Family Hx - Social History Hx Tobacco Use: No Hx Alcohol Use: No Hx Substance Use: No (Former) - Immunization History Hx Tetanus Toxoid Vaccination: Yes Hx Influenza Vaccination: Yes Hx Pneumococcal Vaccination: Yes Review Of Systems Constitutional: Positive for: Malaise, Other (body aches). Negative for: Fever, Chills Cardiovascular: Negative for: Chest Pain, Palpitations Respiratory: Negative for: Shortness of Breath Gastrointestinal: Negative for: Vomiting, Abdominal Pain Skin: Negative for: Rash Neurological: Negative for: Weakness, Numbness, Headache Physical Exam - Physical Exam Appears: Well, Non-toxic, No Acute Distress Skin: Normal Color, Warm, Dry Head: Normacephalic Eye(s): bilateral: Normal Inspection Oral Mucosa: Moist Neck: Supple Cardiovascular: Rhythm Regular Respiratory: Normal Breath Sounds, No Rales, No Rhonchi, No Wheezing Gastrointestinal/Abdominal: Normal Exam, Bowel Sounds, Soft, No Tenderness Extremity: Normal ROM, No Tenderness, No Deformity Neurological/Psych: Oriented x3 Gait: Steady ED Course And Treatment O2 Sat by Pulse Oximetry: 98 (ON RA) Pulse Ox Interpretation: Normal Progress Note: Patient seen in ED yesterday, blood work done - Hgb 8.7, retic count 6.6. Will not repeat blood work today. Patient given PO Dilaudid and Benadryl x2. Reevaluation Time: 02:00 Reassessment Condition: Improved (Patient reassessed, is resting comfortably and states she feels better. Patient is requesting to be discharged home. She was instructed to follow up with PMD in 1-2 days, and she understands she should return to ED if symptoms worsen.) Disposition Counseled Patient/Family Regarding: Diagnosis, Need For Followup - Disposition Referrals: Enzo Louis MD [Staff Provider] - Disposition: HOME/ ROUTINE Disposition Time: 02:00 Condition: STABLE Additional Instructions: FOLLOW UP WITH YOUR DOCTOR IN 1-2 DAYS RETURN TO ER IF SYMPTOMS WORSEN Instructions: Sickle Cell Disease (DC) Forms: [employer] (Citizen Of [place]) Print Language: SOUTH AFRICAN - Clinical Impression Clinical Impression: Sickle cell disease - Scribe Statement The provider has reviewed the documentation as recorded by the Scribe Diogenes Cadena All medical record entries made by the Scribe were at my direction and personally dictated by me. I have reviewed the chart and agree that the record accurately reflects my personal performance of the history, physical exam, medical decision making, and the department course for this patient. I have also personally directed, reviewed, and agree with the discharge instructions and disposition.
[2018-06-14 02:06] VITALS: BP 118/76; PULSE 101; TEMP 98.6
== END 2018-06-14 02:06 | disposition home or self-care (01) ==
LOC: C.ER 22:57
DX: D57.1 Sickle-cell disease without crisis (principal)

== ENCOUNTER 2018-06-16 09:04 | Emergency (ER) | payer MEDICAID ==
[2018-06-16 09:04] VITALS: BMI 24.5
--- NOTE | 2018-06-16 10:08 | C.PDOC ---
History Of Present Illness 32 y/o female comes in for similar complaints from previous visits for back pain and body aches. Patient was seen by Dr. Drew and was told that she will be given prescription for medications next appointment. Patient states that she ran out of her pain medications. Otherwise she denies any abdominal pain, fever, chills, vomiting, chest pain, or SOB. Time Seen by Provider: 06/16/18 09:19 Chief Complaint (Nursing): Pain, Chronic History Per: Patient History/Exam Limitations: no limitations Onset/Duration Of Symptoms: Days Current Symptoms Are (Timing): Still Present Past Medical History Reviewed: Historical Data, Nursing Documentation, Vital Signs Vital Signs: Last Vital Signs Temp 98.2 F 06/16/18 09:12 Pulse 91 H 06/16/18 09:12 Resp 17 06/16/18 09:12 BP 130/85 06/16/18 09:12 Pulse Ox 95 06/16/18 09:12 - Medical History PMH: Anemia, Bronchitis, Gall Bladder Disease, Pneumonia, Sickle Cell Disease Denies: Chronic Kidney Disease Surgical History: Cholecystectomy - [facility] Procedures INFLUENZA VACCINATION (03/16/12) INJECT/INFUSE ELECTROLYT (09/07/13) INJECT/INFUSE NEC (01/25/14) INSERT VAD RESERVOIR IN CHEST SUBCU/FASCIA, OPEN (05/31/17) INSERTION OF INFUSION DEV INTO SUP VENA CAVA, PERC APPROACH (01/25/17) NEBULIZER THERAPY (12/02/13) PACKED CELL TRANSFUSION (02/12/15) REMOVAL OF VAD FROM TRUNK SUBCU/FASCIA, OPEN APPROACH (04/15/16) TRANSFUSE NONAUT RED BLOOD CELLS IN PERIPH VEIN, PERC (03/30/18) VACCINATION NEC (08/22/13) Family History: States: No Known Family Hx - Social History Hx Tobacco Use: No Hx Alcohol Use: No Hx Substance Use: No (Former) - Immunization History Hx Tetanus Toxoid Vaccination: Yes Hx Influenza Vaccination: Yes Hx Pneumococcal Vaccination: Yes Review Of Systems Except As Marked, All Systems Reviewed And Found Negative. Constitutional: Positive for: Other (Body aches). Negative for: Fever, Chills Cardiovascular: Negative for: Chest Pain Respiratory: Negative for: Shortness of Breath Gastrointestinal: Negative for: Vomiting, Diarrhea Genitourinary: Negative for: Dysuria Musculoskeletal: Positive for: Back Pain Physical Exam - Physical Exam Appears: Non-toxic, No Acute Distress Skin: Warm, Dry Head: Atraumatic, Normacephalic Eye(s): bilateral: Normal Inspection, PERRL, EOMI Oral Mucosa: Moist Neck: Supple Chest: Symmetrical Cardiovascular: Rhythm Regular, No Murmur Respiratory: Normal Breath Sounds, No Rales, No Rhonchi, No Wheezing Gastrointestinal/Abdominal: Soft, No Tenderness Back: No CVA Tenderness, No Paraspinal Tenderness Extremity: Bilateral: Atraumatic, Normal Color And Temperature, Normal ROM Neurological/Psych: Oriented x3, Normal Speech, Normal Motor, Normal Sensation, Normal Reflexes Gait: Steady ED Course And Treatment O2 Sat by Pulse Oximetry: 95 (RA) Pulse Ox Interpretation: Normal Progress Note: Patient was given benadryl and dilaudid PO as per [facility] po protocol. On re-evaluation patient feels better and is stable to be d/c home with PMD follow up. Disposition - Disposition Disposition: HOME/ ROUTINE Disposition Time: 13:37 Condition: IMPROVED Additional Instructions: Follow up with PMD and glue cook as instructed. Return to Ed if feel worse. Instructions: Sickle Cell Disease (DC) Forms: [employer] (Khmer) - Clinical Impression Clinical Impression: Sickle cell crisis - PA / DIAGNOSTIC IMAGING MANAGER / Resident Statement MD/DO has reviewed & agrees with the documentation as recorded. - Scribe Statement The provider has reviewed the documentation as recorded by the Scribvalarie Cervantes All medical record entries made by the Scribe were at my direction and personally dictated by me. I have reviewed the chart and agree that the record accurately reflects my personal performance of the history, physical exam, medical decision making, and the department course for this patient. I have also personally directed, reviewed, and agree with the discharge instructions and disposition.
[2018-06-16 12:25] VITALS: RESP 18
[2018-06-16 13:49] VITALS: BP 120/78; PULSE 82; TEMP 98.2
[2018-06-16 16:21] VITALS: O2SAT 95
== END 2018-06-16 13:50 | disposition home or self-care (01) ==
LOC: C.ER 09:04
DX: D57.00 Hb-SS disease with crisis, unspecified (principal)

== ENCOUNTER 2018-06-17 20:14 | Emergency (ER) | payer MEDICAID ==
[2018-06-17 20:15] VITALS: BMI 24.5
[2018-06-17 21:48] LABS: HCG,QUALITATIVE URINE NEGATIVE (NEGATIVE)
[2018-06-17 21:50] LABS: SQUAMOUS EPITHIAL 4 /hpf (0-5); URINE BILIRUBIN NEGATIVE (NEGATIVE); URINE BLOOD NEGATIVE (NEGATIVE); URINE CLARITY Clear (Clear); URINE COLOR Yellow (YELLOW); URINE GLUCOSE (UA) NORMAL (Normal); URINE LEUKOCYTE ESTERASE NEG Leu/uL (Negative); URINE PROTEIN NEGATIVE (NEGATIVE)
--- NOTE | 2018-06-17 21:51 | C.PDOC ---
History Of Present Illness 32 year old female presents to the ED c/o cramping abdominal pain for the last week. Patient was seen in the ED for the past 4 out of 5 nights, patient did not mention this upon interview. Patient was recently hospitalized, had CT abd/pelvis which was negative. Patient has chronic pain medications written by Dr. Drew and Dr. Esquivel for body aches and narcotic use. Patient claims Dr. Mike Louis sent her to the ED for admission. Patient denies fever, chills, nausea, vomit, diarrhea, back pain, weakness, numbness. Time Seen by Provider: 06/17/18 20:58 Chief Complaint (Nursing): Back Pain History Per: Patient History/Exam Limitations: no limitations Onset/Duration Of Symptoms: Days Current Symptoms Are (Timing): Still Present Quality Of Discomfort: Cramping Recent travel outside of the [place]: No Additional History Per: Patient Past Medical History Reviewed: Historical Data, Nursing Documentation, Vital Signs Vital Signs: Last Vital Signs Temp 98.3 F 06/17/18 20:44 Pulse 96 H 06/17/18 20:44 Resp 20 06/17/18 20:44 BP 120/78 06/17/18 20:44 Pulse Ox 96 06/17/18 20:44 - Medical History PMH: Anemia, Bronchitis, Gall Bladder Disease, Pneumonia, Sickle Cell Disease Denies: Chronic Kidney Disease Surgical History: Cholecystectomy - [facility] Procedures INFLUENZA VACCINATION (03/16/12) INJECT/INFUSE ELECTROLYT (09/07/13) INJECT/INFUSE NEC (01/25/14) INSERT VAD RESERVOIR IN CHEST SUBCU/FASCIA, OPEN (05/31/17) INSERTION OF INFUSION DEV INTO SUP VENA CAVA, PERC APPROACH (01/25/17) NEBULIZER THERAPY (12/02/13) PACKED CELL TRANSFUSION (02/12/15) REMOVAL OF VAD FROM TRUNK SUBCU/FASCIA, OPEN APPROACH (04/15/16) TRANSFUSE NONAUT RED BLOOD CELLS IN PERIPH VEIN, PERC (03/30/18) VACCINATION NEC (08/22/13) Family History: States: Unknown Family Hx - Social History Hx Tobacco Use: No Hx Alcohol Use: No Hx Substance Use: No (Former) - Immunization History Hx Tetanus Toxoid Vaccination: Yes Hx Influenza Vaccination: Yes Hx Pneumococcal Vaccination: Yes Review Of Systems Constitutional: Negative for: Fever, Chills Cardiovascular: Negative for: Chest Pain Respiratory: Negative for: Shortness of Breath Gastrointestinal: Positive for: Abdominal Pain. Negative for: Nausea, Vomiting Genitourinary: Negative for: Dysuria, Hematuria Musculoskeletal: Negative for: Back Pain Skin: Negative for: Rash Neurological: Negative for: Weakness, Numbness, Headache Physical Exam - Physical Exam Appears: Non-toxic, Other (bizarre, confabulatory, circumlocution) Skin: Normal Color, Warm, Dry Head: Atraumatic, Normacephalic Eye(s): bilateral: Normal Inspection, Other (pin point pupils) Oral Mucosa: Moist Neck: Normal ROM, Supple Chest: Symmetrical Cardiovascular: Rhythm Regular Respiratory: Normal Breath Sounds, No Rales, No Rhonchi, No Wheezing Gastrointestinal/Abdominal: Soft, No Tenderness, Distention, No Guarding, No Rebound, Other (obese) Extremity: Normal ROM, No Tenderness, No Swelling Neurological/Psych: Oriented x3, Normal Speech, Normal Cognition Gait: Steady ED Course And Treatment - Laboratory Results Lab Interpretation: Normal (ua neg, tox + THC, + Opiates) Urine POC: Negative O2 Sat by Pulse Oximetry: 96 (ON RA) Pulse Ox Interpretation: Normal - Radiology CXR: Interpreted by Me CXR Interpretation: Yes: No Acute Disease - Other Rad abd x 2 X-Ray: Interpreted by Me (+FOS, residual PO contrast noted in sigmoid/rectal area suggesting recent CT of abd/pelvis with PO contrast) Reevaluation Time: 22:37 Reassessment Condition: Unchanged - Physician Consult Information Outcome Of Conversation: 2200: d/w Dr. Tejal Louis- PMD, ok to eval and discharge for opt f/u. Medical Decision Making Medical Decision Making: epigastric colic chronic constipation prob related to chronic narcotics use PO contrast residual noted, suspect CT abd/pelvis recently other institution many prior CT's our institution, including 3 of abd/pelvis which were neg laxative given and instructed diet exercise changes chronic pain [place] MASTER CONTROL OPERATOR reviewed pt getting Dilaudid 4 mg PO tabs from Heme/Onc Dr. Drew/[facility], last filled 06/10 defer additional narcotics now Sickle Cell: baseline labs in past few days opt f/u for no new findings. Disposition Doctor Will See Patient In The: Office Counseled Patient/Family Regarding: Studies Performed, Diagnosis - Disposition Referrals: [facility] [Outside] [facility] [Outside] [facility] [Outside] [facility] [Outside] Giovanna Drew MD [Staff Provider] - Enzo Louis MD [Staff Provider] - Disposition: HOME/ ROUTINE Disposition Time: 22:41 Condition: GOOD Additional Instructions: drink bottle of laxative now entire bottle of Mag Citrate re-evaluate your abdominal discomforts after 2-3 bowel movements diet and exercise changes power walk 45 min/day x 5days/week drink more water minimal narcotics as they are VERY constipating outpatient follow-up w Dr. Drew and Dr. Tejal Louis as needed. Instructions: Constipation in Adults Forms: [employer] ([place]orese) - Clinical Impression Clinical Impression: Colicky abdominal pain, Constipated, Chronic pain - Scribe Statement The provider has reviewed the documentation as recorded by the Scribe Diogenes Cadena All medical record entries made by the Scribe were at my direction and personally dictated by me. I have reviewed the chart and agree that the record accurately reflects my personal performance of the history, physical exam, medical decision making, and the department course for this patient. I have also personally directed, reviewed, and agree with the discharge instructions and d isposition.
[2018-06-17 22:02] LABS: BARBITURATES, UR NEGATIVE (NEGATIVE); BENZODIAZEPINES, UR NEGATIVE (NEGATIVE); PHENCYCLIDINE, UR NEGATIVE (NEGATIVE)
[2018-06-17 22:07] LABS: OPIATES, UR POSITIVE (NEGATIVE)
[2018-06-17] MEDS ORDERED: Magnesium Citrate Oral SOL (300 ml) PO ONE (22:44)
[2018-06-17] MEDS ORDERED: Magnesium Citrate Oral SOL (300 ml) ONE (22:49)
[2018-06-17 22:58] VITALS: BP 109/72; PULSE 77; RESP 16; TEMP 98.4
[2018-06-18 00:09] VITALS: O2SAT 96
--- NOTE | 2018-06-18 11:17 | RAD ---
Date of service: 06/17/2018 PROCEDURE: Radiographs of the chest and abdomen (obstructive series) HISTORY: chronic epigastric, ? constip COMPARISON: No prior. TECHNIQUE: AP radiograph of the chest, with upright and supine radiographs of the abdomen. FINDINGS: CHEST: Right-sided MediPort terminates at the cavoatrial junction. Lungs: The lungs are well inflated and clear. Cardiovascular: Normal size heart. No pulmonary vascular congestion. No aortic atherosclerotic calcification present Pleura: No pleural fluid. No pneumothorax. Other findings: None. ABDOMEN AND PELVIS: Bowel: There is large amount of stool in the colon and rectum. No evidence of mechanical obstruction. Free air: None. Bones: Again seen is round area of sclerosis overlying the right iliac wing which may represent bone island or osteoma. Other findings: Surgical clips in the right upper quadrant are related to prior cholecystectomy. There are multiple surgical clips in the epigastrium. IMPRESSION: Severe constipation. Nonobstructive bowel gas pattern. Clear lungs.
== END 2018-06-17 22:59 | disposition home or self-care (01) ==
LOC: C.ER 20:14
DX: K59.00 Constipation, unspecified (principal); G89.29 Other chronic pain; R10.84 Generalized abdominal pain

== ENCOUNTER 2018-06-19 07:58 | Emergency (ER) | payer MEDICAID ==
[2018-06-19 07:58] VITALS: BMI 24.5
[2018-06-19 08:11] VITALS: BP 114/71; PULSE 94; RESP 20; TEMP 98.3; O2SAT 98
--- NOTE | 2018-06-19 08:22 | C.PDOC ---
History Of Present Illness 32 year old female presents to the ED for evaluation of body aches for 4 days. The patient has been seen in the ED multiple times for similar symptoms. In the ED patient is observed joking with the security guards. Noted to have a negative x-ray 1 day ago. Denies fever, chills, and any other associated symptoms. Time Seen by Provider: 06/19/18 08:06 Chief Complaint (Nursing): Pain, Chronic History Per: Patient History/Exam Limitations: no limitations Onset/Duration Of Symptoms: Days (x4) Current Symptoms Are (Timing): Still Present Recent travel outside of the [place]: No Past Medical History Reviewed: Historical Data, Nursing Documentation, Vital Signs Vital Signs: Last Vital Signs Temp 98.3 F 06/19/18 08:07 Pulse 94 H 06/19/18 08:07 Resp 20 06/19/18 08:07 BP 114/71 06/19/18 08:07 Pulse Ox 98 06/19/18 08:07 - Medical History PMH: Anemia, Bronchitis, Gall Bladder Disease, Pneumonia, Sickle Cell Disease Denies: Chronic Kidney Disease Surgical History: Cholecystectomy - [facility] Procedures INFLUENZA VACCINATION (03/16/12) INJECT/INFUSE ELECTROLYT (09/07/13) INJECT/INFUSE NEC (01/25/14) INSERT VAD RESERVOIR IN CHEST SUBCU/FASCIA, OPEN (05/31/17) INSERTION OF INFUSION DEV INTO SUP VENA CAVA, PERC APPROACH (01/25/17) NEBULIZER THERAPY (12/02/13) PACKED CELL TRANSFUSION (02/12/15) REMOVAL OF VAD FROM TRUNK SUBCU/FASCIA, OPEN APPROACH (04/15/16) TRANSFUSE NONAUT RED BLOOD CELLS IN PERIPH VEIN, PERC (03/30/18) VACCINATION NEC (08/22/13) Family History: States: Unknown Family Hx - Social History Hx Tobacco Use: No Hx Alcohol Use: No Hx Substance Use: No (Former) - Immunization History Hx Tetanus Toxoid Vaccination: Yes Hx Influenza Vaccination: Yes Hx Pneumococcal Vaccination: Yes Review Of Systems Except As Marked, All Systems Reviewed And Found Negative. Constitutional: Positive for: Other (body aches. ). Negative for: Fever, Chills Physical Exam - Physical Exam Appears: Non-toxic, No Acute Distress Skin: Normal Color, Warm, Dry Head: Atraumatic, Normacephalic Eye(s): bilateral: Normal Inspection Oral Mucosa: Moist Neck: Normal ROM Chest: Symmetrical Cardiovascular: Rhythm Regular, No Murmur Respiratory: Normal Breath Sounds, No Rales, No Rhonchi, No Wheezing Gastrointestinal/Abdominal: Normal Exam, Soft, No Tenderness Extremity: Normal ROM (x4) Neurological/Psych: Oriented x3, Normal Speech, Normal Cognition ED Course And Treatment O2 Sat by Pulse Oximetry: 98 (RA) Pulse Ox Interpretation: Normal Medical Decision Making Medical Decision Making: well appearing pt, smiling laughing with staff. no indication for narcotic treatment of sickle cell crisis. no cp Plan: -Tylenol Progress/Update: Patient is stable for discharge home. well known to er, numerious visits. seen joking with staff in nad. neg xray 1 day ago. tylenol outpt fu. Disposition - Disposition Disposition: HOME/ ROUTINE Disposition Time: 08:20 Condition: STABLE Additional Instructions: follow up with your doctor/clinic. return to er with worsening symptoms or concerns. Instructions: Acute Pain, Adult (DC) Forms: [employer] (Stateless) - Clinical Impression Clinical Impression: Total body pain, Chronic pain - Scribe Statement The provider has reviewed the documentation as recorded by the Scribe (Radha Marshall) Provider Attestation: All medical record entries made by the Scribe were at my direction and personally dictated by me. I have reviewed the chart and agree that the record accurately reflects my personal performance of the history, physical exam, medical decision making, and the department course for this patient. I have also personally directed, reviewed, and agree with the discharge instructions and disposition.
== END 2018-06-19 08:40 | disposition home or self-care (01) ==
LOC: C.ER 07:58
DX: G89.29 Other chronic pain (principal)

== ENCOUNTER 2018-06-27 08:51 | Inpatient (IN) | payer MEDICAID | END 2018-07-03 12:20 | disposition home or self-care (01) | LOC: C.ER 08:51 → C.9E 11:24 → C.6T 19:55 ==

== ENCOUNTER 2018-07-12 07:58 | Emergency (ER) | payer MEDICAID ==
[2018-07-12 07:59] VITALS: BMI 24.5
--- NOTE | 2018-07-12 08:42 | C.PDOC ---
History Of Present Illness 33 y/o female, w/PMhx of sickle-cell disease, presents to the ER complaining of generalized body aches which have been present for the past 4 days. Patient is also complaining of dysuria and white vaginal discharge with itching. Patient reports that she has been taking Augmentin for "infection." Denies having fever, chills, vomiting, abdominal pain, and hematuria. Time Seen by Provider: 07/12/18 08:33 Chief Complaint (Nursing): Pain, Chronic History Per: Patient History/Exam Limitations: no limitations Onset/Duration Of Symptoms: Days Current Symptoms Are (Timing): Still Present Severity: Moderate Past Medical History Reviewed: Historical Data, Nursing Documentation, Vital Signs Vital Signs: Last Vital Signs Temp 98.8 F 07/12/18 08:27 Pulse 98 H 07/12/18 08:27 Resp 18 07/12/18 08:27 BP 140/77 07/12/18 08:27 Pulse Ox 100 07/12/18 08:27 - Medical History PMH: Anemia, Bronchitis, Gall Bladder Disease, Pneumonia, Sickle Cell Disease Denies: Chronic Kidney Disease Surgical History: Cholecystectomy - [facility] Procedures INFLUENZA VACCINATION (03/16/12) INJECT/INFUSE ELECTROLYT (09/07/13) INJECT/INFUSE NEC (01/25/14) INSERT VAD RESERVOIR IN CHEST SUBCU/FASCIA, OPEN (05/31/17) INSERTION OF INFUSION DEV INTO SUP VENA CAVA, PERC APPROACH (01/25/17) NEBULIZER THERAPY (12/02/13) PACKED CELL TRANSFUSION (02/12/15) REMOVAL OF VAD FROM TRUNK SUBCU/FASCIA, OPEN APPROACH (04/15/16) TRANSFUSE NONAUT RED BLOOD CELLS IN PERIPH VEIN, PERC (03/30/18) VACCINATION NEC (08/22/13) Family History: States: No Known Family Hx - Social History Hx Tobacco Use: No Hx Alcohol Use: No Hx Substance Use: No (Former) - Immunization History Hx Tetanus Toxoid Vaccination: Yes Hx Influenza Vaccination: Yes Hx Pneumococcal Vaccination: Yes Review Of Systems Except As Marked, All Systems Reviewed And Found Negative. Constitutional: Positive for: Malaise. Negative for: Fever, Chills Gastrointestinal: Negative for: Nausea, Vomiting, Abdominal Pain Genitourinary: Positive for: Dysuria, Vaginal Discharge. Negative for: Hematuria Physical Exam - Physical Exam Appears: Non-toxic, No Acute Distress Skin: Normal Color, Warm, Dry Head: Atraumatic, Normacephalic Eye(s): bilateral: Normal Inspection Nose: Normal Oral Mucosa: Moist Neck: Supple Chest: Symmetrical Cardiovascular: Rhythm Regular Respiratory: Normal Breath Sounds, No Rales, No Rhonchi, No Wheezing Gastrointestinal/Abdominal: Soft, No Tenderness, No Guarding, No Rebound Neurological/Psych: Oriented x3, Normal Speech ED Course And Treatment O2 Sat by Pulse Oximetry: 100 (RA) Pulse Ox Interpretation: Normal - Other Rad CXR X-Ray: Viewed By Me, Read By Radiologist Interpretation: HISTORY: upper back pain. COMPARISON: Chest x-ray performed 06/27/18. TECHNIQUE: Chest PA and lateral. FINDINGS: Right-sided MediPort extends expected location of the cavoatrial junction. LUNGS: Mild right infrahilar patchy opacity may reflect infiltrate. Please note that chest x-ray has limited sensitivity for the detection of pulmonary masses. PLEURA: No significant pleural effusion identified. No definite pneumothorax . CARDIOVASCULAR: Heart size appears within normal limits. No significant atherosclerotic calcification identified. OSSEOUS STRUCTURES: No acute osseous abnormality identified. VISUALIZED UPPER ABDOMEN: Unremarkable. OTHER FINDINGS: None. IMPRESSION: Mild right infrahilar patchy opacity may reflect infiltrate. Correlate clinically. Medical Decision Making Medical Decision Making: Plan: --Benadryl PO --Dilaudid PO --Reglan PO --Urine Culture --HCG, Qual. --Urinalysis Updates: On re-exam, the patient reports improvement of symptoms. Lungs are CTA, heart is RRR, Abdomen is soft, non-tender and the patient is tolerating PO well. Follow up with the medical doctor within 1-2 days. Return if worsened. Patient has been discharged and instructed to follow up with PMD in 1-2 days. Disposition - Disposition Referrals: Enzo Louis MD [Staff Provider] - Disposition: HOME/ ROUTINE Disposition Time: 11:30 Condition: GOOD Additional Instructions: Follow up with the medical doctor within 1-2 days. return if worsened. 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 - Scribe Statement The provider has reviewed the documentation as recorded by the Rosa Sheets Provider Attestation All medical record entries made by the Rosa were at my direction and personally dictated by me. I have reviewed the chart and agree that the record accurately reflects my personal performance of the history, physical exam, medical decision making, and the department course for this patient. I have also personally directed, reviewed, and agree with the discharge instructions and disposition.
[2018-07-12 09:29] LABS: SQUAMOUS EPITHIAL 23 /hpf (0-5); URINE BACTERIA MANY (<OCC); URINE BILIRUBIN NEGATIVE (NEGATIVE); URINE BLOOD NEGATIVE (NEGATIVE); URINE CLARITY Hazy (Clear); URINE COLOR Yellow (YELLOW); URINE GLUCOSE (UA) NORMAL (Normal); URINE LEUKOCYTE ESTERASE NEG Leu/uL (Negative); URINE PROTEIN NEGATIVE (NEGATIVE)
--- NOTE | 2018-07-12 10:15 | RAD ---
HISTORY: upper back pain COMPARISON: Chest x-ray performed 06/27/18 TECHNIQUE: Chest PA and lateral FINDINGS: Right-sided MediPort extends expected location of the cavoatrial junction. LUNGS: Mild right infrahilar patchy opacity may reflect infiltrate. Please note that chest x-ray has limited sensitivity for the detection of pulmonary masses. PLEURA: No significant pleural effusion identified. No definite pneumothorax . CARDIOVASCULAR: Heart size appears within normal limits. No significant atherosclerotic calcification identified. OSSEOUS STRUCTURES: No acute osseous abnormality identified. VISUALIZED UPPER ABDOMEN: Unremarkable. OTHER FINDINGS: None. IMPRESSION: Mild right infrahilar patchy opacity may reflect infiltrate. Correlate clinically.
[2018-07-12 11:19] VITALS: BP 113/77; PULSE 92; RESP 14; TEMP 98.7
[2018-07-12 11:38] VITALS: O2SAT 100
== END 2018-07-12 11:18 | disposition home or self-care (01) ==
LOC: C.ER 07:58
DX: G89.29 Other chronic pain (principal)

== ENCOUNTER 2018-08-18 10:08 | Emergency (ER) | payer MEDICAID ==
[2018-08-18 10:08] VITALS: BMI 24.5
[2018-08-18] MEDS ORDERED: DiphenhydrAMINE 12.5 mg/5 ml LIQ UD (5 ml) PO STA (10:50)
--- NOTE | 2018-08-18 11:03 | C.PDOC ---
History Of Present Illness 33 y/o female, w/PMhx of sickle cell disease, presents to the ER complaining of leg pain which has been present for the past 2 days. Patient states that her symptoms are typical of the pain she has with her history of sickle cell disease. She reports that she usually takes Dilaudid for the pain, however she ran out of the medication 2 days ago. Patient is also complaining of burning with urination. Denies having chest pain, sob, cough, fever,chills, nausea, vomiting, abdominal pain., and hematuria. Time Seen by Provider: 08/18/18 10:20 Chief Complaint (Nursing): Pain, Chronic History Per: Patient History/Exam Limitations: no limitations Onset/Duration Of Symptoms: Days Current Symptoms Are (Timing): Still Present Severity: Moderate Past Medical History Reviewed: Historical Data, Nursing Documentation, Vital Signs Vital Signs: Last Vital Signs Temp 98.7 F 08/18/18 10:14 Pulse 94 H 08/18/18 10:14 Resp 19 08/18/18 10:14 BP 114/81 08/18/18 10:14 Pulse Ox 99 08/18/18 10:14 - Medical History PMH: Anemia, Bronchitis, Gall Bladder Disease, Pneumonia, Sickle Cell Disease Denies: Chronic Kidney Disease Surgical History: Cholecystectomy - [facility] Procedures INFLUENZA VACCINATION (03/16/12) INJECT/INFUSE ELECTROLYT (09/07/13) INJECT/INFUSE NEC (01/25/14) INSERT VAD RESERVOIR IN CHEST SUBCU/FASCIA, OPEN (05/31/17) INSERTION OF INFUSION DEV INTO SUP VENA CAVA, PERC APPROACH (01/25/17) NEBULIZER THERAPY (12/02/13) PACKED CELL TRANSFUSION (02/12/15) REMOVAL OF VAD FROM TRUNK SUBCU/FASCIA, OPEN APPROACH (04/15/16) TRANSFUSE NONAUT RED BLOOD CELLS IN PERIPH VEIN, PERC (03/30/18) VACCINATION NEC (08/22/13) Family History: States: No Known Family Hx - Social History Hx Tobacco Use: No Hx Alcohol Use: No Hx Substance Use: No (Former) - Immunization History Hx Tetanus Toxoid Vaccination: Yes Hx Influenza Vaccination: Yes Hx Pneumococcal Vaccination: Yes Review Of Systems Except As Marked, All Systems Reviewed And Found Negative. Constitutional: Negative for: Fever, Chills Gastrointestinal: Negative for: Nausea, Vomiting, Abdominal Pain Musculoskeletal: Positive for: Leg Pain Physical Exam - Physical Exam Appears: Well, Non-toxic, No Acute Distress, Other (comfortable) Skin: Normal Color, Warm, Dry Head: Atraumatic, Normacephalic Eye(s): bilateral: Normal Inspection Nose: Normal Oral Mucosa: Moist Neck: Supple Chest: Symmetrical Cardiovascular: Rhythm Regular Respiratory: Normal Breath Sounds, No Rales, No Rhonchi, No Wheezing Gastrointestinal/Abdominal: Normal Exam, Soft, No Tenderness, No Guarding, No Rebound Extremity: Normal ROM, No Tenderness Neurological/Psych: Oriented x3, Normal Speech ED Course And Treatment O2 Sat by Pulse Oximetry: 99 (RA) Pulse Ox Interpretation: Normal Medical Decision Making Medical Decision Making: Plan: --Benadryl PO --Dilaudid PO --Urinalysis --POC Urine Test --Urine Culture 11:35 Patient reassessed, is walking around ED in [facility]. Results of UA (neg) d/w patient. 11:46 Case d/w Dr. Davis, patient's multigraph operator, who states patient was d/c'd from [facility] yesterday and patient can f/u in office. Patient is afebrile w/normal exam and is stable for d/c home to f/u w/pcp. Patient agreeable w/POC. Disposition Counseled Patient/Family Regarding: Studies Performed, Diagnosis, Need For Followup - Disposition Referrals: Giovanna Drew MD [Staff Provider] - Disposition: HOME/ ROUTINE Disposition Time: 11:51 Condition: STABLE Instructions: Sickle Cell Disease (DC) Forms: [employer] (Ukrainian) - POA Present On Arrival: None - Clinical Impression Clinical Impression: Sickle cell disease - Scribe Statement The provider has reviewed the documentation as recorded by the Zacheryibe Greg Sheets Provider Attestation: All medical record entries made by the Scribe were at my direction and personally dictated by me. I have reviewed the chart and agree that the record accurately reflects my personal performance of the history, physical exam, medical decision making, and the department course for this patient. I have also personally directed, reviewed, and agree with the discharge instructions and disposition.
[2018-08-18 11:18] LABS: SQUAMOUS EPITHIAL < 1 /hpf (0-5); URINE BACTERIA RARE (<OCC); URINE BILIRUBIN NEGATIVE (NEGATIVE); URINE BLOOD NEGATIVE (NEGATIVE); URINE CLARITY Clear (Clear); URINE COLOR Yellow (YELLOW); URINE GLUCOSE (UA) NORMAL (Normal); URINE LEUKOCYTE ESTERASE NEG Leu/uL (Negative); URINE PROTEIN NEGATIVE (NEGATIVE)
[2018-08-18 11:52] VITALS: BP 120/86; PULSE 101; RESP 20; TEMP 99.1
[2018-08-18 11:54] VITALS: O2SAT 99
== END 2018-08-18 12:00 | disposition home or self-care (01) ==
LOC: C.ER 10:08
DX: D57.1 Sickle-cell disease without crisis (principal)

== ENCOUNTER 2018-10-20 08:51 | Emergency (ER) | payer MEDICAID ==
[2018-10-20 08:56] VITALS: BMI 26.4
[2018-10-20 08:59] VITALS: BP 116/76; PULSE 98; RESP 20; TEMP 98.7; O2SAT 94
[2018-10-20 10:21] LABS: BASO # 0.2 K/uL (0.0-0.2); BASO % 1.5 % (0.0-2.0); EOS # 0.2 K/uL (0.0-0.7); EOS % 1.7 % (0.0-4.0); HEMOGLOBIN 7.9 g/dL (11.0-16.0); LYMPH # 3.2 K/uL (1.0-4.3); LYMPH % 24.2 % (20.0-40.0); MEAN CORPUSCULAR HEMOGLOBIN 36.4 pg (27.0-31.0); MEAN CORPUSCULAR HGB CONC 34.1 g/dL (33.0-37.0); MONO # 1.4 K/uL (0.0-0.8); MONO % 10.4 % (0.0-10.0); NEUT # 8.2 K/uL (1.8-7.0); NEUT % 62.2 % (50.0-75.0); NRBC % 1.2 % (0.0-2.0); RBC 2.17 Mil/uL (3.80-5.20); RED CELL DISTRIBUTION WIDTH 25.8 % (11.5-14.5); WHITE BLOOD COUNT 13.2 K/uL (4.8-10.8)
[2018-10-20 10:28] LABS: HCG,QUALITATIVE URINE NEGATIVE (NEGATIVE)
[2018-10-20 10:32] LABS: ALB/GLOB RATIO 1.3 (1.0-2.1); ALBUMIN 4.1 g/dL (3.5-5.0); BLOOD UREA NITROGEN 8 mg/dL (7-17); CALCIUM 9.4 mg/dl (8.6-10.4); GFR NON-AFRICAN AMERICAN > 60
[2018-10-20 10:33] LABS: SQUAMOUS EPITHIAL 40 /hpf (0-5); URINE BACTERIA MOD (<OCC); URINE BILIRUBIN NEGATIVE (NEGATIVE); URINE BLOOD NEGATIVE (NEGATIVE); URINE CLARITY Hazy (Clear); URINE COLOR Amber (YELLOW); URINE GLUCOSE (UA) NORMAL (Normal); URINE LEUKOCYTE ESTERASE NEG Leu/uL (Negative); URINE PROTEIN NEGATIVE (NEGATIVE)
[2018-10-20 10:35] LABS: ALT/SGPT 152 U/L (9-52); AST/SGOT 152 U/L (14-36); MEAN CELL VOLUME 106.9 fL (81.0-99.0)
[2018-10-20] MEDS ORDERED: Sodium Chloride 0.9% 1,000 ML IV ONE (10:38)
--- NOTE | 2018-10-20 10:56 | C.PDOC ---
History Of Present Illness 33 y/o female, with frequent ED visits and long history of drug seeking behavior and sickle cell disease, comes in to ED with complaints of chest pain and sickle cell crisis, and is requesting pain medications. Patient states she s ees her slackline operator Dr. Hermosillo and PMD Dr. Ariel Louis. Reports she had an echocardiogram in [facility] last week but no results yet. Last took her Dilaudid yesterday and ran out. Time Seen by Provider: 10/20/18 09:23 Chief Complaint (Nursing): Palpitations History Per: Patient History/Exam Limitations: no limitations Onset/Duration Of Symptoms: Days Current Symptoms Are (Timing): Still Present Quality: Aching Past Medical History Reviewed: Historical Data, Nursing Documentation, Vital Signs Vital Signs: Last Vital Signs Temp 98.7 F 10/20/18 08:56 Pulse 98 H 10/20/18 08:56 Resp 20 10/20/18 08:56 BP 116/76 10/20/18 08:56 Pulse Ox 94 L 10/20/18 08:56 Primary Care Provider: Enzo Louis - Medical History PMH: Anemia, Bronchitis, Gall Bladder Disease, Pneumonia, Sickle Cell Disease Denies: Chronic Kidney Disease Surgical History: Cholecystectomy - [facility] Procedures INFLUENZA VACCINATION (03/16/12) INJECT/INFUSE ELECTROLYT (09/07/13) INJECT/INFUSE NEC (01/25/14) INSERT VAD RESERVOIR IN CHEST SUBCU/FASCIA, OPEN (05/31/17) INSERTION OF INFUSION DEV INTO SUP VENA CAVA, PERC APPROACH (01/25/17) NEBULIZER THERAPY (12/02/13) PACKED CELL TRANSFUSION (02/12/15) REMOVAL OF VAD FROM TRUNK SUBCU/FASCIA, OPEN APPROACH (04/15/16) TRANSFUSE NONAUT RED BLOOD CELLS IN PERIPH VEIN, PERC (03/30/18) VACCINATION NEC (08/22/13) Family History: States: No Known Family Hx - Social History Hx Tobacco Use: No Hx Alcohol Use: No Hx Substance Use: No (Former) - Immunization History Hx Tetanus Toxoid Vaccination: Yes Hx Influenza Vaccination: Yes Hx Pneumococcal Vaccination: Yes Review Of Systems Except As Marked, All Systems Reviewed And Found Negative. Constitutional: Negative for: Fever, Chills, Sweats Cardiovascular: Positive for: Chest Pain, Palpitations. Negative for: Light Headedness Respiratory: Negative for: Shortness of Breath Gastrointestinal: Negative for: Nausea, Vomiting Neurological: Negative for: Dizziness Physical Exam - Physical Exam Appears: Non-toxic, No Acute Distress Skin: Warm, Dry Head: Normacephalic Eye(s): bilateral: Normal Inspection Oral Mucosa: Moist Neck: Supple Chest: Other (Port in right upper chest) Cardiovascular: Rhythm Regular, No Murmur Respiratory: Normal Breath Sounds, No Rales, No Rhonchi, No Wheezing Back: No CVA Tenderness Extremity: Normal ROM Extremity: Bilateral: Atraumatic, Normal ROM Neurological/Psych: Oriented x3, Normal Speech Gait: Steady ED Course And Treatment - Laboratory Results Result Diagrams: 10/20/18 10:17 10/20/18 10:17 Lab Results: Total Bilirubin 2.8 mg/dL (0.2-1.3) H 10/20/18 10:17 AST 152 U/L (14-36) H D 10/20/18 10:17 ALT 152 U/L (9-52) H 10/20/18 10:17 Alkaline Phosphatase 155 U/L (38-126) H 10/20/18 10:17 Total Protein 7.3 g/dL (6.3-8.3) 10/20/18 10:17 Albumin 4.1 g/dL (3.5-5.0) 10/20/18 10:17 Globulin 3.2 gm/dL (2.2-3.9) 10/20/18 10:17 Albumin/Globulin Ratio 1.3 (1.0-2.1) 10/20/18 10:17 Urine Color Michaela (YELLOW) 10/20/18 10:17 Urine Clarity Hazy (Clear) 10/20/18 10:17 Urine pH 5.0 (5.0-8.0) 10/20/18 10:17 Ur Specific [place] 1.011 (1.003-1.030) 10/20/18 10:17 Urine Protein Negative mg/dL (NEGATIVE) 10/20/18 10:17 Urine Glucose (UA) Normal mg/dL (Normal) 10/20/18 10:17 Urine Ketones Negative mg/dL (NEGATIVE) 10/20/18 10:17 Urine Blood Negative (NEGATIVE) 10/20/18 10:17 Urine Nitrate Negative (NEGATIVE) 10/20/18 10:17 Urine Bilirubin Negative (NEGATIVE) 10/20/18 10:17 Urine Urobilinogen 2.0 mg/dL (0.2-1.0) H 10/20/18 10:17 Ur Leukocyte Esterase Neg Joanne/uL (Negative) 10/20/18 10:17 Urine WBC (Auto) 1 /hpf (0-5) 10/20/18 10:17 Urine RBC (Auto) < 1 /hpf (0-3) 10/20/18 10:17 Ur Squamous Epith Cells 40 /hpf (0-5) H 10/20/18 10:17 Urine Bacteria Mod (<OCC) H 10/20/18 10:17 Urine HCG, Qual Negative (NEGATIVE) 10/20/18 10:17 Urine HCG, Qual Negative (NEGATIVE) 10/20/18 10:17 Lab Interpretation: Abnormal O2 Sat by Pulse Oximetry: 94 (RA) Pulse Ox Interpretation: Abnormal Progress Note: Labs ordered and IVF. Treated with dilaudid PO. Patient eloped from ED prior to complete ED evaluation Medical Decision Making Medical Decision Making: Plan: --EKG --Labs --UA --Urine HCG --Dilaudid 4 mg PO --IV fluids 1L Update: Patient has eloped. 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 - Scribe Statement The provider has reviewed the documentation as recorded by the Scribvalarie Cervantes All medical record entries made by the Zacheryibvalarie were at my direction and personally dictated by me. I have reviewed the chart and agree that the record accurately reflects my personal performance of the history, physical exam, medical decision making, and the department course for this patient. I have also personally directed, reviewed, and agree with the discharge instructions and disposition.
== END 2018-10-20 10:20 | disposition left against medical advice (07) ==
LOC: C.ER 08:51
DX: R00.2 Palpitations (principal)